=== PATIENT | male | born 1960 | race Caucasian/White ===

== ENCOUNTER 2019-03-11 10:52 | Outpatient (CLI) | payer MEDICARE, OTHER, SELFPAY ==
--- NOTE | 2019-03-11 11:08 | CT_ITS ---
WS: [id number] CT CHEST WITH INTRAVENOUS CONTRAST HISTORY: COUGH/CHRONIC LARYNGITIS/NICOTINE DEPENDENCE TECHNIQUE: Contiguous 5 mm axial imaging performed on the thorax. Coronal and sagittal reformats are submitted. All CT scans at [facility] use at least one of these dose optimization techniq ues: automated exposure control; mA and/or kV adjustment per patient size (includes targeted exams wh ere dose is matched to clinical indication); or iterative reconstruction. CONTRAST: Visipaque 320; 95 mL IV. DLP: 1058.76 mGy.cm COMPARISON: None available. Lungs and central airway: No suspicious nodules or masses. No pneumonia. Subsegmental atelectasis at the lingula. Pleura: Mild pleural thickening throughout the LEFT thorax. No nodularity or effusion. Heart and pericardium: Mildly enlarged heart. No pericardial effusion. Mediastinum and selvin: No mediastinum or hilar adenopathy. Vessels: Mild atherosclerosis aorta. Chest wall and lower neck: No soft tissue masses. Upper abdomen: Small hiatal hernia. Mild hepatic steatosis. Exophytic cyst from the upper pole the RI GHT kidney measures 8.6 cm and incompletely visualized. Osseous structures: Postoperative fusion hardware at the cervicothoracic junction. Extensive osteophy radha throughout the thoracic spine. No osteoblastic or osteolytic bone disease. CT/CT chest w con* [id number] IMPRESSION: 1. No pulmonary nodule or pneumonia. 2. Mild cardiomegaly. 3. Small hiatal hernia. 4. No adenopathy.
[2019-03-11] MEDS: iodixanol 320 mg/mL 100mL Btl IV (13:02)
== END 2019-03-11 10:53 | disposition home or self-care (01) ==
LOC: RT 10:57
PROVIDERS: Family Provider Family Medicine; PCP Family Medicine; Visit Provider Specialist
DX: J37.0 Chronic laryngitis (principal); I51.7 Cardiomegaly; R05 Cough; K21.9 Gastro-esophageal reflux disease without esophagitis; F17.210 Nicotine dependence, cigarettes, uncomplicated; K44.9 Diaphragmatic hernia without obstruction or gangrene
CPT/HCPCS: 71260; 94060; J7611

== ENCOUNTER 2019-11-14 12:04 | Outpatient (CLI) | payer MEDICARE, OTHER, SELFPAY ==
--- NOTE | 2019-11-14 12:45 | USCV_ITS ---
Perry Norman Age: 59 Gender: M : 1960 Exam Date: 11/14/2019 12:12 Ordering Phys: Sahil Roche DPM Technologist: Willie Garcia Exam Location: [facility] [place] Indication: PAD RIGHT LEFT Brachial 160.00 mmHg Brachial 143.00 mmHg Pressure (mmHg) Waveform Pressure (mmHg) Waveform 188.00 P[employer] P[employer]ER 176.00 142.00 DPA 168.00 1.18 Ankle/Brachial Index 1.10 0.80 Pre-Exercise Toe Pressure 0.91 FINDINGS See measurements listed above. Normal resting ABIs bilaterally Normal resting TBI bilaterally CONCLUSIONS No evidence of any significant arterial obstruction, based on the above findings. Dr Harriet Ruth MD [facility] (Electronically Signed) Final Date: 14 November 2019 14:57 S
== END 2019-11-14 12:05 | disposition home or self-care (01) ==
LOC: RAD 12:10
PROVIDERS: PCP Family Medicine; Visit Provider Podiatrist Foot & Ankle Surgery
DX: I73.9 Peripheral vascular disease, unspecified (principal)
CPT/HCPCS: 93922

== ENCOUNTER 2020-02-26 12:38 | Outpatient (CLI) | payer MEDICARE, OTHER, SELFPAY ==
--- NOTE | 2020-02-26 12:44 | USCV_ITS ---
Perry Norman Age: 59 Gender: M : 1960 Exam Date: 02/26/2020 13:02 Ordering Phys: Radha Sanon Technologist: Thai Cano [place] [facility] [place]ication: lower extremity edema/ pain of lt calf/ cellulitis lle PROCEDURES: Venous duplex imaging was performed in only the left lower extremity. The following venous structures were evaluated: common femoral vein, profunda vein, proximal portion of the greater saphenous vein, superficial femoral vein, and the popliteal vein. In addition, the posterior tibial and peroneal trunk were evaluated. Serial compression, augmentation maneuvers, and spectral Doppler flow evaluation were performed. FINDINGS: Normal 2-D Doppler and augmentation and compressibility throughout the lower extremity venous structures. Additional imaging through the proximal calf veins also reveals no thrombus. Limited evaluation of the greater saphenous vein is patent with no thrombus.. CONCLUSIONS No evidence of left lower extremity DVT. Conrad Mark MD (Electronically Signed) Final Date: 27 February 2020 18:01 S
== END 2020-02-26 12:39 | disposition home or self-care (01) ==
LOC: RAD 12:44
PROVIDERS: PCP Family Medicine; Visit Provider Registered Nurse
DX: R60.0 Localized edema (principal); M79.662 Pain in left lower leg; L03.116 Cellulitis of left lower limb
CPT/HCPCS: 93971

== ENCOUNTER 2020-05-25 07:35 | Observation (INO) | payer MEDICARE, OTHER, SELFPAY ==
[2020-05-25] VITALS (15 sets, daily range): BP systolic 115–192; BP diastolic 72–118; PULSE 91–148; RESP 14–22; TEMP 36.5–37.2; O2SAT 91–98; BMI 40.6
--- NOTE | 2020-05-25 07:38 | XR_ITS ---
WS: [id number] PORTABLE CHEST HISTORY: chest pain COMPARISON: Chest CT 03/11/2019 Mild pulmonary hyperexpansion. No pneumonia. Normal vasculature. No pleural effusion or pneumothorax. Cardiac size: Moderately enlarged cardiac silhouette. Mediastinum/Aorta: Mild atherosclerosis aorta. Extensive fusion hardware at the cervicothoracic junction. XR/XR chest 1V portable [id number] IMPRESSION: 1. Chronic emphysema. 2. Moderate cardiomegaly. 3. Stable appearance of the chest since the prior CT of 03/11/2019.
--- NOTE | 2020-05-25 07:38 | ECG_ITS ---
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 Measurements Intervals [place] Rate: 102 P: 64 [place]: 179 QRS: 20 QRSD: 136 T: -62 QT: 363 QTc: 473 Interpretive Statements SINUS TACHYCARDIA WITH OCCASIONAL VENTRICULAR PREMATURE COMPLEXES POSSIBLE LEFT ATRIAL ENLARGEMENT [-0.1mV P WAVE IN V1/V2] INTRAVENTRICULAR CONDUCTION DELAY [130+ ms QRS DURATION] Nonspecific T wave abnormality Compared to ECG 05/25/2020 10:28:12 Right-axis deviation no longer present Electronically Signed On 06-02-2020 12:32:20 CDT by Maye Boyd M.D. [id number]
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
[2020-05-25 08:06] LABS: Basophils # 0.1 10^3/uL (0.0-0.1); Basophils % 0.8 %; Eosinophils # 0.1 10^3/uL (0.0-0.8); Eosinophils % 0.8 %; Hematocrit 52.8 % (42.0-52.0); Lymphocytes # 5.8 10^3/uL (0.8-4.8); Lymphocytes % 44.3 %; Mean Corpuscular HGB Conc 34.1 g/dL (30.0-36.0); Mean Corpuscular Hemoglobin 34.6 pg (28.0-34.0); Mean Corpuscular Volume 101.5 fL (80-94); Mean Platelet Volume 8.4 fL (7.4-10.4); Monocytes # 0.8 10^3/uL (0.2-0.9); Monocytes % 6.4 %; Neutrophils # 6.08 10^3/uL (1.8-7.7); Neutrophils % 46.8 %; Nucleated Red Blood Cells % 0.2 %; Platelet Count 251 10^3/cmm (130-400); Red Cell Distribution Width 14.8 % (12.1-15.1)
[2020-05-25] MEDS: pantoprazole DR 40 mg Tablet PO ×2 (08:14→18:23)
[2020-05-25] MEDS: metoprolol tartrate 1 mg/1 mL SDV 5 mL 5 MG IV ×2 (08:15→09:31)
[2020-05-25] MEDS: carvedilol 25 mg Tablet PO ×2 (08:15→20:32)
[2020-05-25] MEDS: lisinopril 20 mg Tablet PO (08:15)
[2020-05-25] MEDS: lidocaine 2% viscous 15 ML, aluminum-mag hydrox-simethicon 30 ML, sucralfate oral liq 1 GM PO (08:15)
[2020-05-25 08:20] LABS: Troponin(5th) Baseline 35 ng/L (0-15)
[2020-05-25 08:27] LABS: Alanine Aminotransferase 42 U/L (0-41); Albumin Level 4.2 g/dL (3.5-5.2); Alkaline Phosphatase 122 IU/L (40-130); Anion Gap 19.6 (5-19); Aspartate Amino Transferase 44 U/L (0-40); Blood Urea Nitrogen 20 mg/dL (6-20); Calcium 9.2 mg/dL (8.5-10.5); Carbon Dioxide 24 mmol/L (22-29); Chloride 98 mmol/L (98-107); Globulin 2.6 g/dL (1.3-4.6); Glomerular Filtration Rate 68.5 mL/min (90-130); Glucose 175 mg/dL (65-115); NT Pro B Type Natriuretic Pept 224 pg/mL (0-125); Osmolality Calculated 293 mOsm/kg (285-295); Potassium 3.6 mmol/L (3.5-5.1); Sodium 138 mmol/L (136-145); Total Bilirubin 0.3 mg/dL (0.15-1.2); Total Protein 6.8 g/dL (6.6-8.7)
[2020-05-25 08:39] LABS: Ammonia 19 umol/L (16-60)
[2020-05-25 08:54] LABS: Slide Review Slide Review Perform
--- NOTE | 2020-05-25 09:28 | CT_ITS ---
WS: [id number] CTA CHEST WITH CT ABDOMEN AND PELVIS. HISTORY: Chest pain. TECHNIQUE: CT angiogram is performed through the chest. Additional imaging is performed through the a bdomen and pelvis with IV contrast. Sagittal and coronal reformats have been submitted. MIP imaging also reviewed. All CT scans at [facility] use at least one of these dose optimization tech niques: automated exposure control; mA and/or kV adjustment per patient size (includes targeted exams where dose is matched to clinical indication); or iterative reconstruction. Contrast: Visipaque 95 cc IV. Omnipaque 350; 95 cc. DLP: 4388.37 mGy.cm COMPARISON: 03/11/2019 Chest CTA: Limited opacification of the pulmonary arteries. Centrally there is no PE but there is sig nificant artifact through the chest. Pulmonary artery size is equal to the aorta. Beyond the lobar br anches the opacification is limited. Chronic emphysema with mild interstitial thickening. No pneumoni a. No nodule or mass. No pneumothorax or effusion. Mild enlargement of the LEFT heart chambers. No pe ricardial effusion. Small paratracheal and mediastinal lymph nodes. Thoracic aorta is normal size wit h mild atherosclerosis. No dissection or aneurysm. Mildly enlarged thyroid extends substernal. Small hiatal hernia. Abdomen CT: Diffuse moderate hepatomegaly and severe hepatic steatosis. No mass or bile duct dilatati on. Gallbladder is negative. Negative pancreas and spleen. No adrenal mass. Atrophy and diffuse corti yvette thinning of the RIGHT kidney. There are numerous masses associated with the RIGHT kidney. Some of these are cysts. There is a solid mass exophytic from the superior pole measuring 2.5 x 2.1 cm which has been recently described and suspicious for complex cyst versus renal cell neoplasm. There is an additional smaller mass. Maximum diameter 1.5 cm from the mid lateral RIGHT kidney which could be an additional renal cell carcinoma. LEFT kidney demonstrates a large cyst from the upper pole measuring 8.0 x 8.1 cm. There are numerous additional smaller cysts and these are complex but too small to characterize. Normal aorta with mild atherosclerotic plaque. No adenopathy or ascites. No GI tract obstruction. The re are a few diverticula in the descending and sigmoid colon without inflammation. No hernia. Pelvic CT: Normal urinary bladder. No free fluid in the pelvis. Extensive degenerative changes throug hout the thoracic and lumbar spines. Disc fusions at L3-4, L4-5 and L5-S1 with laminectomy defects po steriorly. CT/CT angio chest w abd pel w con IMPRESSION: 1. Limited opacification of the pulmonary artery but no central pulmonary embo lism. 2. No pneumonia. 3. Moderate hepatomegaly with severe hepatic steatosis. 4. Bilateral renal masses. Solid mass upper pole RIGHT kidney suspicious for r enal cell neoplasm is similar to 07/01/2018. There are additional indeterminate but suspicious masses within each kidney. These could be complex cysts or addit ional small renal cell neoplasms. Recommend continued surveillance to exclude d eveloping renal cell neoplasms. 5. No acute inflammatory changes within the abdomen or pelvis. 6. Atherosclerosis aorta with no dissection or aneurysm.
[2020-05-25] MEDS: nitroglycerin 1 gm/inch oint Pkt 1 INCH TOPICAL (09:31)
--- NOTE | 2020-05-25 09:38 | ECG_ITS ---
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 Measurements Intervals [place] Rate: 108 P: 77 [place]: 182 QRS: 112 QRSD: 133 T: 8 QT: 407 QTc: 547 Interpretive Statements SINUS TACHYCARDIA WITH FREQUENT VENTRICULAR PREMATURE COMPLEXES RIGHT AXIS DEVIATION [QRS AXIS > 100] INTRAVENTRICULAR CONDUCTION DELAY [130+ ms QRS DURATION] Compared to ECG 05/25/2020 07:50:50 Ventricular premature complex(es) now present Right-axis deviation now present Electronically Signed On 05-25-2020 20:14:05 CDT by Daniel Null M.D. [id number]
[2020-05-25] MEDS: iodixanol 320 mg/mL 100mL Btl IV (10:18)
[2020-05-25] MEDS: iohexol 350 mg/mL 100 mL Btl IV (10:19)
[2020-05-25 11:37] LABS: Troponin 5 2HR 31.27 ng/L (0-15)
[2020-05-25 11:39] LABS: Troponin 5 2HR Delta -3.73 ABS# (0-10)
[2020-05-25] MEDS: aspirin 81 mg Chew Tablet 324 MG PO (11:53)
--- NOTE | 2020-05-25 11:59 | USCV_ITS ---
Perry Norman Age: 59 Gender: M : 1960 Exam Date: 05/25/2020 12:11 Ordering Phys: George Ying MD Technologist: Gemma Morejon [place] [facility] [place]: CHEST PAIN BP: 141 / 94 HR: 105 Rhythm: Sinus Technical Quality: Adequate MEASUREMENTS (Male / Female) Normal Values 2D ECHO LV Diastolic Diameter PLAX 4.2 cm 4.2 - 5.9 / 3.9 - 5.3 cm LV Systolic Diameter PLAX 3.1 cm LV Chamber Size 3.3 cm IVS Diastolic Thickness 1.9 cm 0.6 - 1.0 / 0.6 - 0.9 cm IVS Systolic Thickness 2.2 cm LVPW Diastolic Thickness 1.7 cm 0.6 - 1.0 / 0.6 - 0.9 cm LVPW Systolic Thickness 1.7 cm RV Chamber Size 2.6 cm LVOT Diameter 2.1 cm LV Ejection Fraction 2D Teich 50.1 % LV Ejection Fraction MOD 2C 67.2 % LV Ejection Fraction 2C AL 68.0 % LA Diameter 4.5 cm LA Width 2.7 cm LA Height 4.5 cm RA Width 3.7 cm RA Height 3.9 cm M-MODE LV Diastolic Diameter MM 5.4 cm 4.2 - 5.9 / 3.9 - 5.3 cm LV Systolic Diameter MM 3.2 cm LV Ejection Fraction MM Teich 71.2 % IVS Diastolic Thickness MM 1.4 cm 0.6 - 1.0 / 0.6 - 0.9 cm IVS Systolic Thickness MM 1.6 cm LVPW Diastolic Thickness MM 0.7 cm 0.6 - 1.0 / 0.6 - 0.9 cm LVPW Systolic Thickness MM 2.0 cm RV Diastolic Diameter MM 1.8 cm Aortic Annulus Diameter 3.5 cm LA Ao Ratio MM 1.6 MV E Point Septal Separation 0.2 cm DOPPLER AV Peak Velocity 264.0 cm/s LVOT Peak Velocity 86.7 cm/s AV Area Cont Eq vti 1.3 cm squared AV Area Cont Eq pk 1.1 cm squared MV Area PHT 6.3 cm squared Mitral E to A Ratio 2.1 MV E' Velocity 67.5 cm/s Mitral E to MV E' Ratio 18.0 Mitral E to LV E' Lateral Ratio 21.2 Mitral E to LV E' Septal Ratio 15.6 TR Peak Velocity 165.9 cm/s TR Peak Gradient 11.0 mmHg TR Mean Velocity 145.6 cm/s TR Mean Gradient 9.4 mmHg TR Velocity Time Integral 49.3 cm TV Peak E Velocity 56.0 cm/s Right Atrial Pressure 5.0 mmHg Pulmonary Artery Systolic Pressu 16.0 mmHg PV Peak Velocity 75.0 cm/s FINDINGS Left Ventricle Normal LV size ejection fraction of 65%. Abnormal septal motion consistent with conduction abnormality. Moderate left ventricular hypertrophy. Grade II/IV diastolic dysfunction, moderately elevated filling pressures. Right Ventricle Mildly increased right ventricular size. Normal right ventricular systolic function. Right Atrium Mildly increased right atrial size. Left Atrium Prominent Coumadin ridge Mitral Valve Mild mitral annular calcification. Aortic Valve Mild aortic valve regurgitation. Moderate aortic valve stenosis. Peak velocity of 2.64 m/s with a peak gradient of 28 and a mean gradient of 13 mmHg. Aortic valve area was calculated to be 1.3 cm squared Tricuspid Valve No gross abnormalities noted Pulmonic Valve Pulmonic valve not well visualized. Pericardium Normal pericardium without effusion. Aorta Normal ascending aorta dimension. CONCLUSIONS Normal LV size ejection fraction of 65%. Abnormal septal motion consistent with conduction abnormality. Moderate left ventricular hypertrophy. Type II diastolic dysfunction. Moderate aortic valve stenosis. Peak velocity of 2.64 m/s with a peak gradient of 28 and a mean gradient of 13 mmHg. Aortic valve area was calculated to be 1.3 cm squared. Mild aortic valve regurgitation. Mild mitral annular calcification. Mildly dilated right atrium and right ventricle with normal RV ejection fraction There is no pericardial effusion. There are no intracardiac masses. No previous study is available for comparison. Dr Harriet Ruth MD [facility] (Electronically Signed) Final Date: 25 May 2020 18:31 S
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
[2020-05-25] MEDS: morphine 4 mg/mL SDV 1 mL 2 MG IVP (12:13)
[2020-05-25 12:37] LABS: Amphetamines Screen Urine Positive (Negative); Barbiturates Screen Urine Negative (Negative); Benzodiazepines Screen Urine Negative (Negative); Cocaine Screen Urine Negative (Negative); Opiate Screen Urine Negative (Negative); PCP Screen Urine Negative (Negative); THC Screen Urine Negative (Negative)
[2020-05-25 12:38] LABS: Hepatitis A Antibody IgM Non-Reactive (Nonreactive); Hepatitis B Core IgM Non-Reactive (Nonreactive); Hepatitis B Surface Antigen Non-Reactive (Nonreactive); Hepatitis C Virus Antibody Non-Reactive (Nonreactive)
--- NOTE | 2020-05-25 13:38 | ECG_ITS ---
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 Measurements Intervals [place] Rate: 135 P: 149 VA: 142 QRS: -3 QRSD: 132 T: 23 QT: 308 QTc: 462 Interpretive Statements SINUS TACHYCARDIA INTRAVENTRICULAR CONDUCTION DELAY [130+ ms QRS DURATION] Compared to ECG 07/01/2018 04:42:19 Sinus rhythm no longer present Electronically Signed On 05-25-2020 20:14:21 CDT by Daniel Null M.D. [id number]
[2020-05-25 13:43] LABS: Magnesium 1.5 mg/dL (1.7-2.3); Thyroid Stimulating Hormone 2.75 uIU/mL (0.27-4.20)
[2020-05-25 14:03] LABS: Troponin 5 6HR 34.86 ng/L (0-15)
[2020-05-25 14:04] LABS: Troponin 5 6HR Delta -0.14 ng/L (0-12)
--- NOTE | 2020-05-25 14:20 | ECG_ITS ---
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 Interpretive Statements NAME OF STUDY: LEXISCAN SESTAMIBI STRESS TEST INDICATION: Chest Pain PROCEDURE: At the baseline, the blood pressure was 171/99 mmHg, oxygen saturation 93% with a heart rate of 92 bpm. The electrocardiogram showed sinus rhythm with artifact ST depression T wave inversion noted in inferolateral leads. The Lexiscan was infused over a period of 20 seconds. A total of 0.4 milligrams of Lexiscan was infused. The stress phase was continued for a total of 5 minutes. Heart rate at the end of the stress phase was 103 bpm, oxygen saturation 92% with a blood pressure of 189/96 mmHg. The EKG at the peak infusion revealed sinus rhythm with ST depression and T wave inversion in inferolateral leads. Isolated PVCs noted during exercise and in recovery. Study was terminated due to protocol completion. Sestamibi was injected 20 seconds after the Lexiscan infusion. Blood pressure at the end of the recovery phase was 166/85 mmHg, oxygen saturation 92% with a heart rate of 96 beats per minute. CONCLUSION: 1. Non diagnostic EKG with Lexiscan infusion given baseline ST-T wave changes. 2. No LexiScan induced chest pain or cardiac arrhythmia. 3. Baseline hypertension with normal blood pressure and heart rate response. 4. Sestamibi/sestamibi perfusion scan pending; see separate report. Electronically Signed On 05-26-2020 12:54:18 CDT by Maye Boyd M.D. [id number]
[2020-05-25] MEDS: sodium chloride 0.9% 1,000 ML 75 ML IV (15:44)
[2020-05-25] MEDS: magnesium sulfate premix 2 GM/50 ML PIGGYBACK IV (15:45)
[2020-05-25] MEDS: baclofen 10 mg Tablet 20 MG PO ×2 (15:54→20:32)
[2020-05-25] MEDS: BuSPIRONE 10 mg Tablet PO ×2 (15:54→20:32)
[2020-05-25] MEDS: enoxaparin 40 mg/0.4 mL Syringe SUBCUT (15:54)
[2020-05-25] MEDS: gabapentin 300 mg Capsule 600 MG PO ×2 (18:23→20:32)
[2020-05-25] MEDS: oxyCODONE-APAP 10-325 mg Tablet 1 TAB PO (19:31)
[2020-05-25] MEDS: pramipexole 0.25 mg Tablet 0.5 MG PO (20:31)
[2020-05-26] VITALS (11 sets, daily range): BP systolic 111–166; BP diastolic 63–94; PULSE 80–99; RESP 17–18; TEMP 36.7–37; O2SAT 91–97
[2020-05-26] MEDS: sodium chloride 0.9% 1,000 ML 75 ML IV (05:13)
[2020-05-26 06:18] LABS: Basophils # 0.1 10^3/uL (0.0-0.1); Basophils % 0.7 %; Eosinophils # 0.1 10^3/uL (0.0-0.8); Eosinophils % 1.5 %; Hematocrit 46.5 % (42.0-52.0); Hemoglobin 15.7 g/dL (11.7-16.6); Lymphocytes # 2.4 10^3/uL (0.8-4.8); Lymphocytes % 27.4 %; Mean Corpuscular HGB Conc 33.8 g/dL (30.0-36.0); Mean Corpuscular Hemoglobin 34.4 pg (28.0-34.0); Mean Platelet Volume 8.8 fL (7.4-10.4); Monocytes # 0.9 10^3/uL (0.2-0.9); Monocytes % 9.5 %; Neutrophils # 5.38 10^3/uL (1.8-7.7); Neutrophils % 60.3 %; Nucleated Red Blood Cells % 0 %; Platelet Count 210 10^3/cmm (130-400); Red Blood Count 4.56 10^6/uL (4.1-5.3); Red Cell Distribution Width 14.7 % (12.1-15.1); White Blood Count 8.9 10^3/uL (4.0-10.0)
[2020-05-26 06:37] LABS: Alanine Aminotransferase 32 U/L (0-41); Albumin Level 3.6 g/dL (3.5-5.2); Alkaline Phosphatase 100 IU/L (40-130); Anion Gap 15.1 (5-19); Aspartate Amino Transferase 32 U/L (0-40); Blood Urea Nitrogen 20 mg/dL (6-20); Calcium 8.7 mg/dL (8.5-10.5); Carbon Dioxide 28 mmol/L (22-29); Chloride 96 mmol/L (98-107); Globulin 2.6 g/dL (1.3-4.6); Glomerular Filtration Rate 76.5 mL/min (90-130); Glucose 96 mg/dL (65-115); Osmolality Calculated 282 mOsm/kg (285-295); Potassium 4.1 mmol/L (3.5-5.1); Sodium 135 mmol/L (136-145); Total Bilirubin 0.6 mg/dL (0.15-1.2); Total Protein 6.2 g/dL (6.6-8.7)
--- NOTE | 2020-05-26 06:45 | NMCV_ITS ---
NM triny perf SPECT r/s* [id number] Perry Norman Age: 59 Gender: M : 1960 Exam Date: 05/26/2020 07:37 Ordering Phys: George Ying MD Technologist: SERENA Hampton Exam Location: [facility] Indications: CHEST PAIN STRESS TEST Please see separate stress test report in [employer]any for full findings IMAGE PROTOCOL Rest/Stress 1 Lexiscan Day Radiopharmaceutical Dose (mCi) Administration Site Administered by Rest: Tc-99m 10.9 IV La Nena Chiu, CUT PRESS OPERATOR Sestamibi Stress:Tc-99m 32.6 IV La Nena Chiu, CUT PRESS OPERATOR Sestamibi Rest: 26-May-2020 60 Discovery 630 Stress: 26-May-2020 30 Discovery 630 0.4mg Lexiscan. Supine position only as patient was unable to lay prone. SPECT RESULTS Technical Quality: Excellent Raw Data Analysis: Normal Image Corrections: No attenuation or motion correction applied Summed Stress Score: 1 Summed Rest Score: 1 Summed Difference Score: 1 PERFUSION FINDINGS Small size perfusion abnormality of mild severity of mid inferior wall on rest images with improved tracer uptake on stress images. This is suggestive of attenuation artifact. FUNCTIONAL RESULTS (calculated via Gated SPECT) Stress Image LV EF (%): 66 Stress EDV (mL):132 TID: 0.91 Stress ESV (mL):45 FUNCTIONAL FINDINGS: The left ventricle is normal in size. Transient Ischemia Dilatation of 0.91. There is normal left ventricular systolic function. The left ventricular ejection fraction is normal with a value of 66%. There is normal left ventricular wall thickening with no regional wall motion abnormality. IMPRESSIONS 1. Myocardial perfusion imaging is normal. 2. Overall left ventricular systolic function is normal without regional wall motion abnormalities. 3. The left ventricular ejection fraction is normal with a value of 66%. 4. No significant coronary ischemia based on the study. Maye Boyd MD (Electronically Signed) Final Date: 26 May 2020 12:59 S
[2020-05-26] MEDS: oxyCODONE-APAP 10-325 mg Tablet 1 TAB PO (08:23)
[2020-05-26] MEDS: regadenoson 0.4 Mg/5 ml Syringe IVP (08:25)
[2020-05-26] MEDS: carvedilol 25 mg Tablet PO (09:34)
[2020-05-26] MEDS: aspirin 325 mg EC Tablet PO (09:34)
[2020-05-26] MEDS: spironolactone 25 mg Tablet 50 MG PO (09:34)
[2020-05-26] MEDS: fluoxetine 20 mg Capsule 60 MG PO (09:34)
[2020-05-26] MEDS: baclofen 10 mg Tablet 20 MG PO (09:34)
[2020-05-26] MEDS: gabapentin 300 mg Capsule 600 MG PO ×2 (09:35→12:23)
[2020-05-26] MEDS: atorvastatin 40 mg Tablet 20 MG PO (09:35)
[2020-05-26] MEDS: losartan 50 mg Tablet 100 MG PO (09:35)
[2020-05-26] MEDS: pantoprazole DR 40 mg Tablet PO (09:35)
[2020-05-26] MEDS: BuSPIRONE 10 mg Tablet PO (09:35)
[2020-05-26] MEDS: venlafaxine ER (24HR) 150 mg Capsule PO (09:36)
[2020-05-26] MEDS: venlafaxine ER (24HR) 75 mg Capsule PO (09:36)
[2020-05-26] MEDS: acetaminophen 325 mg Tablet 650 MG PO (11:22)
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
== END 2020-05-26 15:06 | disposition home or self-care (01) ==
LOC: ER 13:28 → MEDSURG 05-26 07:41
PROVIDERS: Physician Assistant; Admitting Provider Internal Medicine; Emergency Provider Family Medicine; PCP Family Medicine; Visit Provider Internal Medicine
DX: R41.82 Altered mental status, unspecified (principal); R07.89 Other chest pain; R00.0 Tachycardia, unspecified; R74.01 Elevation of levels of liver transaminase levels; F10.10 Alcohol abuse, uncomplicated; R73.9 Hyperglycemia, unspecified; N28.89 Other specified disorders of kidney and ureter; I13.0 Hypertensive heart and chronic kidney disease with heart failure and stage 1 through stage 4 chronic kidney disease, or unspecified chronic kidney disease; N18.9 Chronic kidney disease, unspecified; I50.9 Heart failure, unspecified; J44.9 Chronic obstructive pulmonary disease, unspecified; K21.9 Gastro-esophageal reflux disease without esophagitis; G47.30 Sleep apnea, unspecified; E66.9 Obesity, unspecified; Z68.41 Body mass index [BMI] 40.0-44.9, adult; F17.210 Nicotine dependence, cigarettes, uncomplicated
CPT/HCPCS: 36415; 71045; 71275; 74177; 78452; 80053; 80074; 80306; 82140; 83735; 83880; 84443; 84484; 85025; 85610; 93005; 93017; 93306; 96372; 96374; 96375; 99285; A9500; G0378; J1650; J2270; J2785; J3475; J3490; J7030; Q9967

== ENCOUNTER 2020-07-27 09:54 | Outpatient (CLI) | payer MEDICARE, OTHER, SELFPAY | END 2020-07-27 09:55 | disposition home or self-care (01) | LOC: WOUND 09:56 | PROVIDERS: PCP Family Medicine; Visit Provider Nurse Practitioner Family | DX: L98.492 Non-pressure chronic ulcer of skin of other sites with fat layer exposed (principal); L97.512 Non-pressure chronic ulcer of other part of right foot with fat layer exposed | CPT/HCPCS: 11042; G0463 ==

== ENCOUNTER 2020-07-30 08:58 | Outpatient (CLI) | payer MEDICARE, OTHER, SELFPAY ==
--- NOTE | 2020-07-30 09:12 | XR_ITS ---
WS: [id number] Exam: XR foot RT min 3V* [id number] Date/Time of Exam: 07/30/2020 9:17 AM Reason For Exam: NON PRESSURE WOUND R FOOT No fracture or dislocation noted. No sign of bone destruction. Degenerative changes in the midfoot casa ints. No soft tissue foreign bodies are seen. There may be soft tissue swelling along the MP joint of the fifth digit. XR/XR foot RT min 3V* [id number] IMPRESSION: 1. No fracture or bone destruction identified. Minimal degenerative changes. 2. There may be soft tissue swelling along the MP joint of the fifth digit.
== END 2020-07-30 08:59 | disposition home or self-care (01) ==
PROVIDERS: PCP Family Medicine; Visit Provider Nurse Practitioner Family
DX: L97.512 Non-pressure chronic ulcer of other part of right foot with fat layer exposed (principal)
CPT/HCPCS: 73630

== ENCOUNTER 2020-08-10 09:50 | Outpatient (CLI) | payer MEDICARE, OTHER, SELFPAY | END 2020-08-10 09:51 | disposition home or self-care (01) | LOC: WOUND 09:51 | PROVIDERS: PCP Family Medicine; Visit Provider Nurse Practitioner Family | DX: L98.492 Non-pressure chronic ulcer of skin of other sites with fat layer exposed (principal); L97.512 Non-pressure chronic ulcer of other part of right foot with fat layer exposed | CPT/HCPCS: 11042 ==

== ENCOUNTER 2020-08-24 09:12 | Outpatient (CLI) | payer MEDICARE, OTHER, SELFPAY | END 2020-08-24 09:13 | disposition home or self-care (01) | LOC: WOUND 09:13 | PROVIDERS: PCP Family Medicine; Visit Provider Thoracic Surgery (Cardiothoracic Vascular Surgery) | DX: I96 Gangrene, not elsewhere classified (principal); L89.893 Pressure ulcer of other site, stage 3; L97.512 Non-pressure chronic ulcer of other part of right foot with fat layer exposed | CPT/HCPCS: 11042; 97597 ==

== ENCOUNTER 2020-08-27 07:34 | Outpatient (CLI) | payer MEDICARE, OTHER, SELFPAY ==
--- NOTE | 2020-08-27 07:47 | USCV_ITS ---
Perry Norman Age: 59 Gender: M : 1960 Exam Date: 08/27/2020 08:00 Ordering Phys: Dia Whitman Technologist: Gemma Morejon Exam Location: [facility] [place] Indication: HISTORY: Non healing ulcer on rt foot PROCEDURES: The venous duplex Doppler examination of both lower extremities was performed in the standard fashion. The following venous structures were evaluated: common femoral vein, the greater saphenous vein, superficial femoral vein, and the popliteal vein ,and ptv and ssv FINDINGS: Small amount of reflux seen Rt GSV prox Lt GSV below knee has reflux. The veins were found to be easily compressible with spontaneous blood flow. Non pulsatile flow pattern. CONCLUSIONS 1.No evidence of DVT in the above-mentioned identifiable veins. 2. Significant venous reflux of greater than 500 ms(728 msec) was noted at the proximal greater saphenous vein on the right side. The venous segment was 0.59 cm in diameter and at a depth of 1.78 cm. 3. On the left side, significant venous reflux of greater than 500 ms (3190 msec)was noted in the below-knee segment of the greater saphenous vein. The venous segment was 0.41 cm in diameter and at a depth of 1.35 cm 4. The venous dimensions and the depth from the surface are as mentioned above Dr Harriet Ruth MD [facility] (Electronically Signed) Final Date: 28 August 2020 08:47 S
== END 2020-08-27 07:35 | disposition home or self-care (01) ==
PROVIDERS: PCP Family Medicine; Visit Provider Nurse Practitioner Family
DX: L97.519 Non-pressure chronic ulcer of other part of right foot with unspecified severity (principal)
CPT/HCPCS: 93970

== ENCOUNTER 2020-08-28 08:14 | Outpatient (CLI) | payer MEDICARE, OTHER, SELFPAY ==
--- NOTE | 2020-08-28 08:23 | USCV_ITS ---
Perry Norman Age: 59 Gender: M : 1960 Exam Date: 08/28/2020 08:13 Ordering Phys: Dia Whitman Technologist: Yoselin Fischer Exam Location: [facility] [place] Indication: RT TOE ULCER RIGHT LEFT Brachial 124.00 mmHg Brachial 119.00 mmHg Pressure (mmHg) Waveform Pressure (mmHg) Waveform 146.00 High Thigh 137.00 146.00 Below Knee 137.00 155.00 RADIO HOST N/A 135.00 DPA 138.00 1.09 Ankle/Brachial Index 1.11 119.00 Pre-Exercise Toe Pressure 142.00 0.96 Pre-Exercise Toe/Brachial Index 1.15 FINDINGS Normal resting ABIs bilaterally Normal resting TBIs bilateral Normal segmental pressures PVR waveforms showing some blunting of the dicrotic notch CONCLUSIONS No evidence of any significant arterial obstruction, based on the above findings. Dr Harriet Ruth MD [facility] (Electronically Signed) Final Date: 28 August 2020 11:25 S
== END 2020-08-28 08:15 | disposition home or self-care (01) ==
LOC: US 08:17
PROVIDERS: PCP Family Medicine; Visit Provider Nurse Practitioner Family
DX: L97.519 Non-pressure chronic ulcer of other part of right foot with unspecified severity (principal)
CPT/HCPCS: 93923

== ENCOUNTER 2020-08-31 08:46 | Outpatient (CLI) | payer MEDICARE, OTHER, SELFPAY | END 2020-08-31 08:47 | disposition home or self-care (01) | LOC: WOUND 08:47 | PROVIDERS: PCP Family Medicine; Visit Provider Nurse Practitioner Family | DX: L89.893 Pressure ulcer of other site, stage 3 (principal); L97.512 Non-pressure chronic ulcer of other part of right foot with fat layer exposed | CPT/HCPCS: 11042 ==

== ENCOUNTER 2020-09-07 08:45 | Outpatient (CLI) | payer MEDICARE, OTHER, SELFPAY | END 2020-09-07 08:46 | disposition home or self-care (01) | LOC: WOUND 08:46 | PROVIDERS: PCP Family Medicine; Visit Provider Nurse Practitioner Family | DX: I96 Gangrene, not elsewhere classified (principal); L89.893 Pressure ulcer of other site, stage 3; L97.512 Non-pressure chronic ulcer of other part of right foot with fat layer exposed | CPT/HCPCS: 11042 ==

== ENCOUNTER → 2020-09-11 14:00 | Outpatient (BNVA) | payer MEDICARE, OTHER, SELFPAY | PROVIDERS: PCP Family Medicine; Visit Provider Surgery | DX: Z12.11 Encounter for screening for malignant neoplasm of colon (principal); Z20.822 Contact with and (suspected) exposure to COVID-19 | CPT/HCPCS: 87635 ==

== ENCOUNTER 2020-09-14 09:21 | Outpatient (CLI) | payer MEDICARE, OTHER, SELFPAY | END 2020-09-14 09:22 | disposition home or self-care (01) | LOC: WOUND 09:22 | PROVIDERS: PCP Family Medicine; Visit Provider Nurse Practitioner Family | DX: L89.893 Pressure ulcer of other site, stage 3 (principal); L97.812 Non-pressure chronic ulcer of other part of right lower leg with fat layer exposed | CPT/HCPCS: 11042 ==

== ENCOUNTER 2020-09-17 08:21 | Day surgery (SDC) | payer MEDICARE, OTHER, SELFPAY ==
[2020-09-15 12:23] VITALS: BMI 39.3
--- NOTE | 2020-09-17 08:43 | ANES.PREANE2 ---
Pre-Anesthetic Assessment Pre-Anesthetic Assessment: Height/Weight: Height 1.83 m Weight 131.542 kg Preop Diagnosis: Blood in stool and change in bowel habits Proposed Procedure: Operation Date: 09/17/20 09:30 Proposed Procedures p EGD/colon 76146 12117 R10.9 R19.4(Not Applicable) - Todd Davis MD s Colonoscopy(Not Applicable) - Todd Davis MD Familial anesthetic complications: None Was Beta Trevor taken within 24 hours: Yes Was Clonidine taken within 24 hours: N/A Last intake: > 8 hrs Social: Social History: Alcohol and Tobacco Comment: moonshine 1 pint/day Exam: Pre-Anes Outpt Exam: alert, oriented x 3, clear to auscultation bilaterally and regular rate & rhythm Airway: MP: 3 Dentition: Other (no teeth) Additional comments: hernández Pulmonary: Pulmonary: COPD and Sleep apnea CV/HEM: CV/HEM: HTN and PVD Comments: Aortic stenosis, hx of Cath 2020 IMPRESSIONS 1. Myocardial perfusion imaging is normal. 2. Overall left ventricular systolic function is normal without regional wall motion abnormalities. 3. The left ventricular ejection fraction is normal with a value of 66%. 4. No significant coronary ischemia based on the study. Echo 2020 CONCLUSIONS Normal LV size ejection fraction of 65%. Abnormal septal motion consistent with conduction abnormality. Moderate left ventricular hypertrophy. Type II diastolic dysfunction. Moderate aortic valve stenosis. Peak velocity of 2.64 m/s with a peak gradient of 28 and a mean gradient of 13 mmHg. Aortic valve area was calculated to be 1.3 cm squared. Mild aortic valve regurgitation. Mild mitral annular calcification. Mildly dilated right atrium and right ventricle with normal RV ejection fraction There is no pericardial effusion. There are no intracardiac masses. No previous study is available for comparison. : : Chronic renal Insufficiency Anesthetic Plan: ASA status: 3 Anesthesia: MAC Risk of > 500 ml blood loss (7ml/kg in children): No PFSH Anesthesia PFSH: Medical History Alcoholism Aortic stenosis BPH loc w urin obs/LUTS CHF (congestive heart failure) Chronic pain CKD (chronic kidney disease) COPD (chronic obstructive pulmonary disease) CRI (chronic renal insufficiency) DDD (degenerative disc disease) Depression with anxiety DJD (degenerative joint disease) GERD (gastroesophageal reflux disease) HTN (hypertension) LVH (left ventricular hypertrophy) Obesity Sleep apnea Surgical History History of aortic aneurysm repair History of coronary angioplasty with insertion of stent Family History Other CAD (coronary artery disease) Social History Smoking and tobacco status: current every day smoker cigarettes Packs smoked per day: 3 Alcohol intake: current Alcohol intake frequency: 3 or more drinks per day Marital status: Current occupational status: disabled History of recent travel: No Data Anesthesia Cardiac Studies: No Data to Display
[2020-09-17 09:09] VITALS: BP 108/48; PULSE 75; RESP 8; TEMP 36.4; O2SAT 97
--- NOTE | 2020-09-17 09:20 | W.PM.OPSFHP ---
Same Day Surgery H&P Indication for Procedure/HPI DATE OF PROCEDURE: September 17, 2020 CHIEF COMPLAINT/INDICATIONFOR SURGICAL PROCEDURE: Blood in stool PREOP DIAGNOSIS: Blood in stool and change in bowel habits PLANNED PROCEDRUE: Operation Date: 09/17/20 09:30 Proposed Procedures p EGD/colon [id number] R10.9 R19.4(Not Applicable) - Todd Davis MD s Colonoscopy(Not Applicable) - Todd Davis MD This is a pleasant 59 years old gentleman comes with broad spectrum of symptomatology including but not limited regurgitation of food in addition to blood in stool with alternating bowel movements between loose stools and constipation. Patient had previous colonoscopy few years ago and he was told that he had colon polyps and he is intentionally losing weight. Patient had noticed recently that he has been having diarrheal stools alternating with constipation. Without obvious explanation Patient is referred to me for further evaluation for consideration for endoscopies Interim history 09/17/2020 Patient comes today for diagnostic EGD and colonoscopy ROS Systems have been reviewed negative except as per the above or per problem list Medications/Allergies* Home Medications Medication Instructions Recorded Confirmed Type albuterol sulfate 90 mcg/actuation 2 puff INHALATION Q6H PRN 03/05/19 09/17/20 History aerosol inhaler azelastine 137 mcg (0.1 %) nasal 1 spray INTRANASAL BID 03/05/19 09/17/20 History spray aerosol baclofen 20 mg tablet 20 mg PO TID 03/05/19 09/17/20 History bisacodyl 5 mg tablet,delayed 5 mg PO DAILY PRN 03/05/19 09/17/20 History release carvedilol 25 mg tablet 25 mg PO BID 03/05/19 09/17/20 History gabapentin 600 mg tablet 600 mg PO QID 03/05/19 09/17/20 History lovastatin 40 mg tablet 40 mg PO DAILY 03/05/19 09/17/20 History omeprazole 40 mg capsule,delayed 40 mg PO BID 03/05/19 09/17/20 History release oxycodone-acetaminophen 10 mg-325 1 tab PO Q8H PRN 03/05/19 09/17/20 History mg tablet pramipexole 0.25 mg tablet 0.5 mg PO BEDTIME 03/05/19 09/17/20 History spironolactone 50 mg tablet 50 mg PO DAILY 03/05/19 09/17/20 History ergocalciferol (vitamin D2) 1,250 mcg PO Q7D 05/25/20 09/17/20 History fluoxetine 60 mg PO DAILY 05/25/20 09/17/20 History losartan 100 mg PO DAILY 05/25/20 09/17/20 History buspirone 10 mg tablet 10 mg PO TID 06/12/20 09/17/20 History clotrimazole 1 % topical cream 1 applic TOPICAL PRN PRN g 06/12/20 09/17/20 History hydralazine 50 mg tablet 50 mg PO BID tab 06/12/20 09/17/20 History silver sulfadiazine 1 % topical 1 applic TOPICAL PRN PRN g 06/12/20 09/17/20 History cream tadalafil 20 mg tablet 20 mg PO PRN PRN tab 06/12/20 09/17/20 History testosterone cypionate 100 mg/mL 100 mg IM .every 21 days ml 06/12/20 09/17/20 History intramuscular oil Allergies/Adverse Reactions Allergy/AdvReac Type Severity Reaction Status Date / Time adhesive tape Allergy Mild ALGY-Rash Verified 09/17/20 09:21 ciprofloxacin Allergy Unknown Unknown Verified 09/17/20 09:21 Forced Air Heat Allergy Mild Difficulty Uncoded 09/17/20 09:21 breathing; dries up sinuses. Pertinent History/Comorbid Conditions* Medical History (Updated 07/20/20 @ 20:26 by Sahil Roche DPM) Alcoholism Aortic stenosis BPH loc w urin obs/LUTS CHF (congestive heart failure) Chronic pain CKD (chronic kidney disease) COPD (chronic obstructive pulmonary disease) CRI (chronic renal insufficiency) DDD (degenerative disc disease) Depression with anxiety DJD (degenerative joint disease) GERD (gastroesophageal reflux disease) HTN (hypertension) LVH (left ventricular hypertrophy) Obesity Sleep apnea Surgical History (Updated 05/25/20 @ 12:23 by George Ying MD) History of aortic aneurysm repair History of coronary angioplasty with insertion of stent Family History (Updated 05/25/20 @ 12:23 by George Ying MD) CAD (coronary artery disease) Social History Smoking and tobacco status: current every day smoker cigarettes Packs smoked per day: 3 Alcohol intake: current Alcohol intake frequency: 3 or more drinks per day Marital status: Current occupational status: disabled History of recent travel: No Pertinent Exam Findings alert, oriented x 3, clear to auscultation bilaterally, regular rate & rhythm and procedure specific exam findings (Abdominal examination nontender nondistended soft obese) Recommendations Surgery/Procedure today (EGD and colonoscopy) Other Plans: Plan of care; After thorough history and physical examination and reviewing the chart, plan to perform a diagnostic esophagogastroduodenoscopy and diagnostic colonoscopy with possible biopsy and possible polypectomy. I discussed with the patient in detail the risks,benefits,alternatives and indications.The risk of aspiration, bleeding, soft tissue injury, perforation of the stomach/esophagus/colon and other potential concomitant complications were explained to the patient in details also the potential need for Thoracotomy and or Laproscoy/Laparotomy to repair any related complications including but not limited to colectomy and or Closotomy. The patient understood this well and did agree to proceed. Rationale was carefully and clearly discussed with the patient.Appropriate informed consent have been reviewed and signed Verbal and written Instructions were given to the patient for colonoscopy prep Coding Level of Care Code Acute Engineering Mathematician for Rom Gupta
[2020-09-17] MEDS: sodium chloride 0.9% 1,000 ML 30 ML IV (09:37)
[2020-09-17 10:31] VITALS: BP 112/65; PULSE 82; RESP 16; TEMP 36.4; O2SAT 99
[2020-09-17 10:53] VITALS: BP 118/70; PULSE 80; RESP 16; TEMP 36.6; O2SAT 98
--- NOTE | 2020-09-17 15:00 | ANE.PACU2 ---
Inpatient post-anesthesia follow up: Airway intact: Yes Vital signs: Temperature 97.9 F Pulse Rate 80 Respiratory Rate 16 Blood Pressure 118/70 Pulse Oximetry 98 Oxygen Delivery Me thod Room Air Oxygen Flow Rate Fraction of Inspir ed Oxygen Hydration adequate: Yes Nausea and vomiting: No Pain level: 1 Mental status: Baseline
== END 2020-09-17 11:15 | disposition home or self-care (01) ==
PROVIDERS: PCP Family Medicine; Visit Provider Surgery
PROC: 0DJ08ZZ Inspection of Upper Intestinal Tract, Via Natural or Artificial Opening Endoscopic (ICD-10-PCS; CPT 43235; principal; 2020-09-17 09:30)
PROC: 0DJD8ZZ Inspection of Lower Intestinal Tract, Via Natural or Artificial Opening Endoscopic (ICD-10-PCS; CPT 45378; 2020-09-17 09:30)
DX: K92.1 Melena (principal); R19.4 Change in bowel habit; R10.9 Unspecified abdominal pain; K29.70 Gastritis, unspecified, without bleeding; K20.90 Esophagitis, unspecified without bleeding; D12.4 Benign neoplasm of descending colon; D12.8 Benign neoplasm of rectum; K57.30 Diverticulosis of large intestine without perforation or abscess without bleeding; N40.1 Benign prostatic hyperplasia with lower urinary tract symptoms; N13.8 Other obstructive and reflux uropathy; J44.9 Chronic obstructive pulmonary disease, unspecified; M19.90 Unspecified osteoarthritis, unspecified site; K21.9 Gastro-esophageal reflux disease without esophagitis; E66.9 Obesity, unspecified; Z68.39 Body mass index [BMI] 39.0-39.9, adult; G47.30 Sleep apnea, unspecified; F17.210 Nicotine dependence, cigarettes, uncomplicated; I13.0 Hypertensive heart and chronic kidney disease with heart failure and stage 1 through stage 4 chronic kidney disease, or unspecified chronic kidney disease; N18.9 Chronic kidney disease, unspecified; I50.9 Heart failure, unspecified; Z82.49 Family history of ischemic heart disease and other diseases of the circulatory system
CPT/HCPCS: 43235; 45385; 87070; 87077; 87176; 87186; 87205; 88305; 96360; J2370; J2704; J3010; J7030

== ENCOUNTER 2020-09-21 10:28 | Outpatient (CLI) | payer MEDICARE, OTHER, SELFPAY | END 2020-09-21 10:29 | disposition home or self-care (01) | LOC: WOUND 10:29 | PROVIDERS: PCP Family Medicine; Visit Provider Nurse Practitioner Family | DX: L89.893 Pressure ulcer of other site, stage 3 (principal); F17.210 Nicotine dependence, cigarettes, uncomplicated | CPT/HCPCS: 11042 ==

== ENCOUNTER 2020-09-28 10:12 | Outpatient (CLI) | payer MEDICARE, OTHER, SELFPAY | END 2020-09-28 10:13 | disposition home or self-care (01) | LOC: WOUND 10:14 | PROVIDERS: PCP Family Medicine; Visit Provider Nurse Practitioner Family | DX: L89.892 Pressure ulcer of other site, stage 2 (principal); L97.512 Non-pressure chronic ulcer of other part of right foot with fat layer exposed; F17.210 Nicotine dependence, cigarettes, uncomplicated | CPT/HCPCS: 11042 ==

== ENCOUNTER 2020-10-05 10:51 | Outpatient (CLI) | payer MEDICARE, OTHER, SELFPAY | END 2020-10-05 10:52 | disposition home or self-care (01) | LOC: WOUND 10:52 | PROVIDERS: PCP Family Medicine; Visit Provider Emergency Medicine | DX: I96 Gangrene, not elsewhere classified (principal); L89.892 Pressure ulcer of other site, stage 2; F17.210 Nicotine dependence, cigarettes, uncomplicated | CPT/HCPCS: 11042 ==

== ENCOUNTER 2020-10-12 11:05 | Outpatient (CLI) | payer MEDICARE, OTHER, SELFPAY | END 2020-10-12 11:06 | disposition home or self-care (01) | LOC: WOUND 11:06 | PROVIDERS: PCP Family Medicine; Visit Provider Emergency Medicine | DX: L89.892 Pressure ulcer of other site, stage 2 (principal); F17.210 Nicotine dependence, cigarettes, uncomplicated | CPT/HCPCS: 11042 ==

== ENCOUNTER 2020-10-20 08:58 | Outpatient (CLI) | payer MEDICARE, OTHER, SELFPAY | END 2020-10-20 08:59 | disposition home or self-care (01) | LOC: WOUND 08:59 | PROVIDERS: PCP Family Medicine; Visit Provider Emergency Medicine | DX: L89.892 Pressure ulcer of other site, stage 2 (principal); F17.210 Nicotine dependence, cigarettes, uncomplicated | CPT/HCPCS: 11042 ==

== ENCOUNTER 2020-10-26 08:32 | Outpatient (CLI) | payer MEDICARE, OTHER, SELFPAY | END 2020-10-26 08:33 | disposition home or self-care (01) | LOC: WOUND 08:33 | PROVIDERS: PCP Family Medicine; Visit Provider Emergency Medicine | DX: L89.892 Pressure ulcer of other site, stage 2 (principal); F17.210 Nicotine dependence, cigarettes, uncomplicated | CPT/HCPCS: 11042 ==

== ENCOUNTER 2020-11-02 09:01 | Outpatient (CLI) | payer MEDICARE, OTHER, SELFPAY | END 2020-11-02 09:02 | disposition home or self-care (01) | LOC: WOUND 09:02 | PROVIDERS: PCP Family Medicine; Visit Provider Emergency Medicine | DX: L89.892 Pressure ulcer of other site, stage 2 (principal); F17.210 Nicotine dependence, cigarettes, uncomplicated | CPT/HCPCS: 11042 ==

== ENCOUNTER 2020-11-07 10:11 | Emergency (ER) | payer MEDICARE, OTHER, SELFPAY ==
[2020-11-07] VITALS (7 sets, daily range): BP systolic 105–164; BP diastolic 62–93; PULSE 60–78; RESP 15–22; TEMP 36.5–37; O2SAT 90–94; BMI 40.6
--- NOTE | 2020-11-07 10:24 | ECG_ITS ---
[facility] Test Date: 2020-11-07 Pat Name: Perry Norman Department: Room: Gender: Male Life Cycle Assessment Analyst: : 1960 Requested By: Nirmal Cespedes Order Number: [id number] Bishop MD: Daniel Null M.D. Measurements Intervals [place] Rate: 68 P: 76 [place]: 186 QRS: 30 QRSD: 123 T: 49 QT: 422 QTc: 449 Interpretive Statements SINUS RHYTHM WITH OCCASIONAL VENTRICULAR PREMATURE COMPLEXES POSSIBLE LEFT ATRIAL ENLARGEMENT [-0.1mV P-WAVE IN V1/V2] SEPTAL MYOCARDIAL INFARCTION , OF INDETERMINATE AGE [40+ ms Q WAVE IN V1/V2] Compared to ECG 05/25/2020 17:07:19 Myocardial infarct finding now present Sinus tachycardia no longer present Intraventricular conduction delay no longer present T-wave abnormality no longer present Electronically Signed On 11-07-2020 21:08:02 CDT by Daniel Null M.D. [id number]
--- NOTE | 2020-11-07 10:24 | XRR_ITS ---
PROCEDURE INFORMATION: Exam: XR Chest Exam date and time: 11/07/2020 10:24 AM Age: 60 years old Clinical indication: Dyspnea TECHNIQUE: Imaging protocol: XR of the chest. Views: 1 view. COMPARISON: CR XR chest 1V portable [id number] 05/25/2020 7:52 AM FINDINGS: Lungs: Unremarkable. No consolidation. Pleural spaces: Unremarkable. No pleural effusion. No pneumothorax. Heart/Mediastinum: Unremarkable. No cardiomegaly. Bones/joints: The patient has undergone cervical and lower thoracic surgical spine fusion. XR/XR chest 1V portable [id number] IMPRESSION: No acute cardiopulmonary abnormality.
[2020-11-07 10:52] LABS: ABG PH Result 7.36 (7.35-7.45); Arterial Blood Gas Hematocrit 39.8 % (42-52); Base Excess ABG 3.5 mmol/L (-2.0-2.0); Blood Gas Allen Test Pos; Blood Gas Operator Identificat MONRO; Blood Gas Sample Site Radial, left; Blood Gas Sample Type Arterial; Carboxyhemoglobin 4.3 %THgb (0.4-20.1); HCO3 ABG 30.1 mmol/L (22-26); HGB O2 Sat 82.7 % (95-100); Ionized Calcium Level - ABG 1.2 mmol/L (1.1-1.4); Methemoglobin 0.8 % (0.4-1.5); Oxygen Device ROOM AIR; Oxygen Saturation ABG 87.2; PO2 ABG 55.1 mmHg (80.0-100.0); Potassium Level - ABG 4.6 mmol/L (3.5-5.0)
[2020-11-07 10:52] LABS: Basophils % 0.4 %; Eosinophils # 0.2 10^3/uL (0.0-0.8); Eosinophils % 3.1 %; Hematocrit 39.5 % (42.0-52.0); Hemoglobin 12.6 g/dL (11.7-16.6); Lymphocytes # 1.3 10^3/uL (0.8-4.8); Mean Corpuscular HGB Conc 31.9 g/dL (30.0-36.0); Mean Corpuscular Hemoglobin 34.7 pg (28.0-34.0); Mean Corpuscular Volume 108.8 fl (80-94); Mean Platelet Volume 8.9 fL (7.4-10.4); Monocytes # 0.7 10^3/uL (0.2-0.9); Monocytes % 8.9 %; Neutrophils # 5.17 10^3/uL (1.8-7.7); Neutrophils % 69.9 %; Nucleated Red Blood Cells % 0.3 %; Platelet Count 188 10^3/cmm (130-400); Red Blood Count 3.63 10^6/uL (4.1-5.3); Red Cell Distribution Width 14.8 % (12.1-15.1); White Blood Count 7.4 10^3/uL (4.0-10.0)
[2020-11-07] MEDS: ipratropium-albuterol 3 mL Neb INHALATION (10:57)
[2020-11-07 11:17] LABS: Troponin(5th) Baseline 34 ng/L (0-15)
--- NOTE | 2020-11-07 11:32 | ED_ITS ---
HPI - SOB/Dyspnea General: Chief Complaint: Shortness of Breath/Dyspnea Stated Complaint: MUSCLE TRMORS INVOLUNTARY AND SOB Time Seen by Provider: 11/07/20 10:15 History of Present Illness: HPI Narrative: 60-year-old male presents emergency room complaining of shortness of breath for the last couple of days progressively worsening he has had a productive cough as well. He has loose stools chronically and seems to have increased slightly. He denies any fever sweats or chills no myalgias or headache. He has been immunized for Covid. He still smokes 3 to 4 packs/day. Denies any dysuria urgency or frequency denies any chest pain. MD elicited complaint: shortness of breath Pertinent past history: COPD Onset (ago): day(s) Context: recent illness Timing: constant Severity: moderate Exacerbating factors: exertion and coughing Relieving factors: oxygen and rest Associated symptoms: Reports chest congestion; Deny abdominal pain, chest pain, cough, diaphoresis, dizziness, extremity pain, fever(s), hemoptysis, lightheadedness, myalgias, nausea, orthopnea, palpitations, paresthesias, polydipsia, polyuria, rash, sense of impending doom, syncope or vomiting Treatment prior to arrival: oxygen Review of Systems Const: Denies: fever(s) or diaphoresis ENMT: Denies: throat pain, ear or mastoid pain, nasal discharge or nasal congestion Card: Denies: chest pain, palpitations, lightheadedness, syncope or orthopnea Resp: Reports: chest congestion; Denies: hemoptysis GI: Denies: abdominal pain, nausea or vomiting : Denies: flank pain, dysuria, urinary frequency or urinary urgency Musc: Denies: extremity pain Skin/Breast: Denies: rash or pruritus Neuro: Denies: dizziness Endo: Denies: polyuria or polydipsia PFS ED PFSH: Medical History (Updated 11/07/20 @ 13:52 by Nirmal Currie DO) Alcoholism Aortic stenosis BPH loc w urin obs/LUTS CHF (congestive heart failure) Chronic pain CKD (chronic kidney disease) Colon polyps COPD (chronic obstructive pulmonary disease) CRI (chronic renal insufficiency) DDD (degenerative disc disease) Depression with anxiety Diverticulosis DJD (degenerative joint disease) Esophageal candidiasis GERD (gastroesophageal reflux disease) HTN (hypertension) LVH (left ventricular hypertrophy) Obesity Sleep apnea Surgical History History of aortic aneurysm repair History of coronary angioplasty with insertion of stent Family History Other CAD (coronary artery disease) Social History Smoking and tobacco status: current every day smoker cigarettes Packs smoked per day: 3 Alcohol intake: current Alcohol intake frequency: 3 or more drinks per day Marital status: Current occupational status: disabled History of recent travel: No Physical Exam Const: COMMON NORMALS: no acute distress GENERAL APPEARANCE: cooperative and comfortable ORIENTATION/CONSCIOUSNESS: Yes awake, Yes oriented to person, Yes oriented to place and Yes oriented to time HENMT: COMMON NORMALS: normocephalic, atraumatic and hearing grossly normal bilaterally HEAD & SCALP: normocephalic and atraumatic Neck/C-Spine: COMMON NORMALS: no JVD Resp: AUSCULTATION: wheezes and diminished lung sounds Cardio: COMMON NORMALS: no JVD, regular rate, regular rhythm and No murmurs present (Cardio) RATE: regular rate RHYTHM: regular rhythm GI: COMMON NORMALS: Soft to palpation and No hepatosplenomegaly present AUSCULTATION: Yes normoactive bowel sounds PALPATION: Yes Soft to palpation, No Tenderness to palpation present (GI), No Guarding due to palpation present (GI) and Yes No hepatosplenomegaly present Extremity: COMMON NORMALS: normal to inspection, capillary refill normal, no clubbing, cyanosis or edema, no calf tenderness and no pedal edema Neuro: SENSORIUM/ORIENTATION: Yes oriented to person, Yes oriented to place and Yes oriented to time Skin: COMMON NORMALS: no rashes or lesions noted GENERAL SKIN EXAM: no rashes or lesions noted Course Vital Signs: Vital signs: Vital Signs Temperature 98.4 F 11/07/20 14:47 Pulse Rate 60 11/07/20 15:00 Respiratory Rate 15 11/07/20 15:00 Blood Pressure 155/93 11/07/20 15:00 Pulse Oximetry 94 11/07/20 15:00 MDM - SOB/Dyspnea MDM Narrative: Medical decision making narrative: Patient markedly improved after nebulizers and steroids. He is maintaining his oxygen sats without any supplemental O2 will discharge home on Medrol Dosepak also set him up for a nebulizer follow-up with primary care doctor within the week any worsening or change symptoms return continue his other medications Lab Data: Labs: Lab Results 11/07/20 11/07/20 11/07/20 10:39 10:45 10:45 WBC 7.4 10^3/uL 10^3/ uL (4.0-10.0) RBC 3.63 10^6/uL L 10 ^6/uL (4.1-5.3) Hgb 12.6 g/dL g/dL (11.7-16.6) Hct 39.5 % L % (42.0-52.0) MCV 108.8 fl H fl (80-94) MCH 34.7 pg H pg (28.0-34.0) MCHC 31.9 g/dL g/dL (30.0-36.0) RDW 14.8 % % (12.1-15.1) Plt Count 188 10^3/cmm 10^3 /cmm (130-400) MPV 8.9 fL fL (7.4-10.4) Neut % (Auto) 69.9 % % Lymph % (Auto) 17.0 % % Early % (Auto) 8.9 % % Eos % (Auto) 3.1 % % Baso % (Auto) 0.4 % % Neut # (Auto) 5.17 10^3/uL 10^3 /uL (1.8-7.7) Lymph # (Auto) 1.3 10^3/uL 10^3/ uL (0.8-4.8) Early # (Auto) 0.7 10^3/uL 10^3/ uL (0.2-0.9) Eos # (Auto) 0.2 10^3/uL 10^3/ uL (0.0-0.8) Baso # (Auto) 0.0 10^3/uL 10^3/ uL (0.0-0.1) Nucleated RBC % (a uto) 0.3 % % Nucleated RBCs # 0.0 /100WBC /100W BC Specimen Type Arterial Sample Site Radial, left ABG pH 7.36 (7.35-7.45) ABG pCO2 53.0 mmHg H mmHg (35-45) ABG pO2 55.1 mmHg L mmHg (80.0-100.0) ABG HCO3 30.1 mmol/L H mmo l/L (22-26) ABG O2 Saturation 87.2 ABG Base Excess 3.5 mmol/L H mmol /L (-2.0-2.0) [place] Test Pos A-a O2 Gradient 4.0 mmHg L mmHg (5-10) Hematocrit 39.8 % L % (42-52) Hgb O2 Saturation 82.7 % L % (95-100) Carboxyhemoglobin 4.3 %THgb %THgb (0.4-20.1) Methemoglobin 0.8 % % (0.4-1.5) Total Hemoglobin 13.0 g/dL L g/dL (14-18) Sodium 141.0 mmol/L mmol /L 139 mmol/L mmol/L (131-143) (136-145) Potassium 4.6 mmol/L mmol/L 4.7 mmol/L mmol/L (3.5-5.0) (3.5-5.1) Glucose 107.0 mg/dL mg/dL 99 mg/dL mg/dL (70-115) (65-115) Ionized Calcium 1.2 mmol/L mmol/L (1.1-1.4) O2 Delivery Device Room air FiO2 21.0 % % Head Of Geography ID [place] Chloride 102 mmol/L mmol/L (98-107) Carbon Dioxide 28 mmol/L mmol/L (22-29) Anion Gap 13.7 (5-19) BUN 19 mg/dL mg/dL (8-23) Creatinine 1.4 mg/dL H mg/dL (0.7-1.2) GFR Calculation 51.7 mL/min L mL/ min (90-130) Calculated Osmolal ity 290 mOsm/kg mOsm/ kg (285-295) Calcium 8.6 mg/dL mg/dL (8.5-10.5) Total Bilirubin 0.3 mg/dL mg/dL (0.15-1.2) AST 20 U/L U/L (0-40) ALT 16 U/L U/L (0-41) Alkaline Phosphata se 140 IU/L H IU/L (40-130) Creatine Kinase 50 U/L U/L (39-308) Troponin T Baselin e Troponin T 120 Min eek Delta Troponin T NT-Pro-B Natriuret Pep 550 pg/mL H pg/mL (0-125) Total Protein 6.3 g/dL L g/dL (6.6-8.7) Albumin 3.6 g/dL g/dL (3.5-5.2) Globulin 2.7 g/dL g/dL (1.3-4.6) SARS-CoV-2 Ag (Rap id) 11/07/20 11/07/20 11/07/20 10:45 11:38 13:19 WBC RBC Hgb Hct MCV MCH MCHC RDW Plt Count MPV Neut % (Auto) Lymph % (Auto) Early % (Auto) Eos % (Auto) Baso % (Auto) Neut # (Auto) Lymph # (Auto) Early # (Auto) Eos # (Auto) Baso # (Auto) Nucleated RBC % (a uto) Nucleated RBCs # Specimen Type Sample Site ABG pH ABG pCO2 ABG pO2 ABG HCO3 ABG O2 Saturation ABG Base Excess Augustine Test A-a O2 Gradient Hematocrit Hgb O2 Saturation Carboxyhemoglobin Methemoglobin Total Hemoglobin Sodium Potassium Glucose Ionized Calcium O2 Delivery Device FiO2 Head Of Geography ID Chloride Carbon Dioxide Anion Gap BUN Creatinine GFR Calculation Calculated Osmolal ity Calcium Total Bilirubin AST ALT Alkaline Phosphata se Creatine Kinase Troponin T Baselin e 34 ng/L H ng/L (0-15) Troponin T 120 Min eek 25.13 ng/L H ng/L (0-15) Delta Troponin T -8.87 ABS# L ABS# (0-10) NT-Pro-B Natriuret Pep Total Protein Albumin Globulin SARS-CoV-2 Ag (Rap id) Negative (Negative) Discharge Plan Discharge Patient Disposition: Home Clinical Impression: Acute exacerbation of chronic obstructive airways disease Condition: Stable Prescriptions: New Medrol (Keith) 4 mg tablets,dose pack See Rx Instructions .ROUTE .COMPLEX Qty: 21 RF: 0 ipratropium-albuterol 0.5 mg-3 mg(2.5 mg base)/3 mL solution for nebulization 3 ml inhalation Q4H PRN (Reason: shortness of breath or wheezing) Qty: 180 RF: 0 No Action mupirocin 2 % ointment 1 applic TOPICAL BID Qty: 30 RF: 2 pramipexole [Mirapex] 0.25 mg tablet 0.5 mg PO BEDTIME RF: 0 lovastatin 40 mg tablet 40 mg PO DAILY RF: 0 oxycodone-acetaminophen [Percocet] 10-325 mg tablet 1 tab PO Q8H PRN (Reason: Pain) RF: 0 spironolactone 50 mg tablet 25 mg PO DAILY RF: 0 gabapentin 600 mg tablet 600 mg PO QID RF: 0 omeprazole 40 mg capsule,delayed release(DR/EC) 40 mg PO BID RF: 0 albuterol sulfate [Ventolin HFA] 90 mcg/actuation HFA aerosol inhaler 2 puff INHALATION Q6H PRN (Reason: Shortness Of Breath) RF: 0 carvedilol [Coreg] 25 mg tablet 25 mg PO BID RF: 0 azelastine 137 mcg (0.1 %) aerosol,spray 1 spray INTRANASAL BID RF: 0 bisacodyl [Dulcolax (bisacodyl)] 5 mg tablet,delayed release (DR/EC) 5 mg PO DAILY PRN (Reason: Constipation) RF: 0 baclofen 20 mg tablet 20 mg PO TID RF: 0 testosterone cypionate [Depo-Testosterone] 100 mg/mL oil 100 mg IM .every 21 days RF: 0 clotrimazole 1 % cream 1 applic topical PRN PRN (Reason: DRYNESS ON FEET) RF: 0 buspirone 10 mg tablet 10 mg PO TID RF: 0 tadalafil 20 mg tablet 20 mg PO PRN PRN (Reason: Sexual Activity) RF: 0 silver sulfadiazine [SSD] 1 % cream 1 applic topical PRN PRN (Reason: DRYNESS) RF: 0 hydralazine 50 mg tablet 50 mg PO BID RF: 0 triamcinolone acetonide 0.5 % cream 1 applic topical BID RF: 0 nystatin 100,000 unit/mL suspension 1 ml PO QID RF: 0 fluticasone propionate 50 mcg/actuation spray,suspension 1 spray intranasal BID RF: 0 ergocalciferol (vitamin D2) 1,250 mcg (50,000 unit) Capsule 1,250 mcg PO Q7D RF: 0 losartan 100 mg Tablet 100 mg PO DAILY RF: 0 fluoxetine 20 mg Capsule 60 mg PO DAILY RF: 0 tamsulosin 0.4 mg capsule 0.4 mg PO DAILY RF: 0 Advair Diskus 500-50 mcg/dose Blister With Device 1 inh INHALATION Q12H RF: 0 Discharge Orders: Discharge ED (Routine); Ordered 11/07/20 Ordered By: Nirmal Currie Other Ambulatory Orders: DME: Nebulizer with Neb Kit (Order) Location: None Selected Ordered By: Nirmal Currie Referrals: Barbara Longo DO [Primary Care Provider] - Discharge Diet: Usual diet Discharge Activity: Limit activity as instructed Patient Instructions: Opioid Safety Activity Restrictions/Additional Instructions: Follow-up with your primary care doctor within the next week. Return to the emergency room if you have further problems. Coding Level of Care Code ED Refrigeration Tech for Rom Fwd Exam Comprehensive
[2020-11-07 11:42] LABS: Alanine Aminotransferase 16 U/L (0-41); Albumin Level 3.6 g/dL (3.5-5.2); Alkaline Phosphatase 140 IU/L (40-130); Anion Gap 13.7 (5-19); Aspartate Amino Transferase 20 U/L (0-40); Blood Urea Nitrogen 19 mg/dL (8-23); Calcium 8.6 mg/dL (8.5-10.5); Carbon Dioxide 28 mmol/L (22-29); Chloride 102 mmol/L (98-107); Creatine Phosphokinase 50 U/L (39-308); Creatinine Clr Calc Pharmacy 80.1517; Globulin 2.7 g/dL (1.3-4.6); Glomerular Filtration Rate 51.7 mL/min (90-130); Glucose 99 mg/dL (65-115); NT Pro B Type Natriuretic Pept 550 pg/mL (0-125); Osmolality Calculated 290 mOsm/kg (285-295); Potassium 4.7 mmol/L (3.5-5.1); Sodium 139 mmol/L (136-145); Total Bilirubin 0.3 mg/dL (0.15-1.2); Total Protein 6.3 g/dL (6.6-8.7)
[2020-11-07 12:20] LABS: SARS Covid-2 Antigen Negative (Negative)
--- NOTE | 2020-11-07 12:24 | ECG_ITS ---
[facility] Test Date: 2020-11-07 Pat Name: Perry Norman Department: Room: Gender: Male Monitor Technician: : 1960 Requested By: Nirmal Cespedes Order Number: [id number] Bishop MD: Daniel Null M.D. Measurements Intervals [place] Rate: 59 P: 64 [place]: 189 QRS: 19 QRSD: 122 T: 7 QT: 439 QTc: 436 Interpretive Statements SINUS BRADYCARDIA POSSIBLE LEFT ATRIAL ENLARGEMENT [-0.1mV P-WAVE IN V1/V2] SEPTAL MYOCARDIAL INFARCTION , OF INDETERMINATE AGE [40+ ms Q WAVE IN V1/V2] Compared to ECG 11/07/2020 10:38:20 Sinus rhythm no longer present Ventricular premature complex(es) no longer present Myocardial infarct finding still present Electronically Signed On 11-07-2020 21:13:19 CDT by Daniel Null M.D. [id number]
[2020-11-07] MEDS: FUROsemide 10 mg/mL SDV 4mL 40 MG IVP (13:56)
[2020-11-07 14:05] LABS: Troponin 5 2HR 25.13 ng/L (0-15)
[2020-11-07 14:09] LABS: Troponin 5 2HR Delta -8.87 ABS# (0-10)
--- NOTE | 2020-11-07 16:24 | ECG_ITS ---
[facility] Test Date: 2020-11-07 Pat Name: Perry Norman Department: Room: Gender: Male Safe Technician: : 1960 Requested By: Nirmal Cespedes Order Number: [id number] Bishop MD: Daniel Null M.D. Measurements Intervals [place] Rate: 58 P: 62 [place]: 189 QRS: 23 QRSD: 125 T: 24 QT: 443 QTc: 437 Interpretive Statements SINUS BRADYCARDIA POSSIBLE LEFT ATRIAL ENLARGEMENT [-0.1mV P-WAVE IN V1/V2] SEPTAL MYOCARDIAL INFARCTION , OF INDETERMINATE AGE [40+ ms Q WAVE IN V1/V2] Compared to ECG 11/07/2020 12:38:59 No significant changes Electronically Signed On 11-07-2020 21:13:16 CDT by Daniel Null M.D. [id number]
[2020-11-09 13:52] LABS: Coronavirus Test Green County Not Detected
== END 2020-11-07 15:00 | disposition home or self-care (01) ==
PROVIDERS: Emergency Provider Family Medicine; PCP Family Medicine
DX: J44.1 Chronic obstructive pulmonary disease with (acute) exacerbation (principal); I11.0 Hypertensive heart disease with heart failure; I50.9 Heart failure, unspecified; Z95.5 Presence of coronary angioplasty implant and graft; F17.210 Nicotine dependence, cigarettes, uncomplicated; Z20.822 Contact with and (suspected) exposure to COVID-19
CPT/HCPCS: 36415; 36600; 71045; 80051; 80053; 82330; 82550; 82805; 83880; 84484; 85025; 87426; 87635; 93005; 94640; 96374; 96375; 99284; J1940; J2930

== ENCOUNTER 2020-11-16 09:06 | Outpatient (CLI) | payer MEDICARE, OTHER, SELFPAY | END 2020-11-16 09:07 | disposition home or self-care (01) | LOC: WOUND 09:13 | PROVIDERS: PCP Family Medicine; Visit Provider Emergency Medicine | DX: I96 Gangrene, not elsewhere classified (principal); L89.892 Pressure ulcer of other site, stage 2; F17.210 Nicotine dependence, cigarettes, uncomplicated | CPT/HCPCS: 11042 ==

== ENCOUNTER 2020-11-23 13:05 | Outpatient (CLI) | payer MEDICARE, OTHER, SELFPAY | END 2020-11-23 13:06 | disposition home or self-care (01) | LOC: WOUND 13:06 | PROVIDERS: PCP Family Medicine; Visit Provider Emergency Medicine | DX: L89.892 Pressure ulcer of other site, stage 2 (principal); F17.210 Nicotine dependence, cigarettes, uncomplicated | CPT/HCPCS: 11042; A6251 ==

== ENCOUNTER 2020-11-30 13:46 | Outpatient (CLI) | payer MEDICARE, OTHER, SELFPAY | END 2020-11-30 13:47 | disposition home or self-care (01) | LOC: WOUND 13:47 | PROVIDERS: PCP Family Medicine; Visit Provider Emergency Medicine | DX: L89.892 Pressure ulcer of other site, stage 2 (principal); F17.210 Nicotine dependence, cigarettes, uncomplicated | CPT/HCPCS: 15275; Q4187 ==

== ENCOUNTER 2020-12-07 13:30 | Outpatient (CLI) | payer MEDICARE, OTHER, SELFPAY | END 2020-12-07 13:31 | disposition home or self-care (01) | LOC: WOUND 13:31 | PROVIDERS: PCP Family Medicine; Visit Provider Nurse Practitioner Family | DX: L89.892 Pressure ulcer of other site, stage 2 (principal); L97.522 Non-pressure chronic ulcer of other part of left foot with fat layer exposed; F17.210 Nicotine dependence, cigarettes, uncomplicated | CPT/HCPCS: 11042 ==

== ENCOUNTER 2020-12-14 08:03 | Outpatient (CLI) | payer MEDICARE, OTHER, SELFPAY ==
--- NOTE | 2020-12-14 08:07 | NM_ITS ---
WS: [id number] NUCLEAR MEDICINE BONE SCAN 3 PHASE Radiopharmaceutical: 24.9 Tc-99m MDP mCi IV Postinjection imaging delay: 2 hr CLINICAL INFORMATION: NON PRESSURE CHRONIC ULCER R FOOT COMPARISON: None. FINDINGS: Increased blood flow, blood pool and delayed bony uptake involving the head of the first metatarsal e xtending into the proximal and distal phalanx. Delayed uptake is more prominent at the head of the fi rst metatarsal suspicious for osteomyelitis Degenerative uptake at both AC joints. Degenerative uptake involving the knees bilaterally. Right TKA . NM/NM bone 3 phase [id number] IMPRESSION: Increased blood flow, blood pool, and delayed imaging involving the head of the first metatarsal extending into the proximal and distal phalanx. Delayed uptak e is more prominent at the head of the first metatarsal suspicious for osteomye litis.
== END 2020-12-14 08:04 | disposition home or self-care (01) ==
LOC: NM 08:05
PROVIDERS: PCP Family Medicine; Visit Provider Nurse Practitioner Family
DX: L97.512 Non-pressure chronic ulcer of other part of right foot with fat layer exposed (principal)
CPT/HCPCS: 78315; A9561

== ENCOUNTER 2020-12-14 14:25 | Outpatient (CLI) | payer MEDICARE, OTHER, SELFPAY | END 2020-12-14 14:26 | disposition home or self-care (01) | LOC: WOUND 14:25 | PROVIDERS: PCP Family Medicine; Visit Provider Emergency Medicine | DX: L89.892 Pressure ulcer of other site, stage 2 (principal) | CPT/HCPCS: 11042; 15275; 78315; A6250; A6252; A9561; Q4110 ==

== ENCOUNTER 2020-12-15 | Outpatient (CLI) | payer MEDICARE, OTHER, SELFPAY | END 2020-12-15 00:01 | disposition home or self-care (01) | LOC: RAD 08-10 09:18 | PROVIDERS: PCP Family Medicine; Visit Provider Urology | DX: N40.1 Benign prostatic hyperplasia with lower urinary tract symptoms (principal) | CPT/HCPCS: 81003 ==

== ENCOUNTER 2020-12-21 13:53 | Outpatient (CLI) | payer MEDICARE, OTHER, SELFPAY | END 2020-12-21 13:54 | disposition home or self-care (01) | LOC: WOUND 13:54 | PROVIDERS: PCP Family Medicine; Visit Provider Nurse Practitioner Family | DX: L89.892 Pressure ulcer of other site, stage 2 (principal); L97.522 Non-pressure chronic ulcer of other part of left foot with fat layer exposed; F17.210 Nicotine dependence, cigarettes, uncomplicated | CPT/HCPCS: 11042 ==

== ENCOUNTER 2020-12-28 13:01 | Outpatient (CLI) | payer MEDICARE, OTHER, SELFPAY | END 2020-12-28 13:02 | disposition home or self-care (01) | PROVIDERS: PCP Family Medicine; Visit Provider Emergency Medicine | DX: L89.892 Pressure ulcer of other site, stage 2 (principal); I10 Essential (primary) hypertension; L97.522 Non-pressure chronic ulcer of other part of left foot with fat layer exposed; L97.512 Non-pressure chronic ulcer of other part of right foot with fat layer exposed; J44.9 Chronic obstructive pulmonary disease, unspecified; F17.210 Nicotine dependence, cigarettes, uncomplicated | CPT/HCPCS: 11042; 15275; 80048; 83735; 83880; A6250; Q4110 ==

== ENCOUNTER 2021-01-11 13:00 | Outpatient (CLI) | payer MEDICARE, OTHER, SELFPAY | END 2021-01-11 13:01 | disposition home or self-care (01) | LOC: WOUND 13:01 | PROVIDERS: PCP Family Medicine; Visit Provider Emergency Medicine | DX: L89.892 Pressure ulcer of other site, stage 2 (principal); L97.522 Non-pressure chronic ulcer of other part of left foot with fat layer exposed; L97.512 Non-pressure chronic ulcer of other part of right foot with fat layer exposed; F17.210 Nicotine dependence, cigarettes, uncomplicated; J44.9 Chronic obstructive pulmonary disease, unspecified | CPT/HCPCS: 11042; 15275; A6250; Q4110 ==

== ENCOUNTER 2021-01-18 09:35 | Outpatient (RCR) | payer MEDICARE, OTHER, SELFPAY | END 2021-02-12 23:59 | disposition home or self-care (01) | LOC: WOUND 09:35 | PROVIDERS: PCP Family Medicine; Visit Provider Emergency Medicine | DX: L89.892 Pressure ulcer of other site, stage 2 (principal); L97.522 Non-pressure chronic ulcer of other part of left foot with fat layer exposed; L97.512 Non-pressure chronic ulcer of other part of right foot with fat layer exposed; F17.210 Nicotine dependence, cigarettes, uncomplicated; J44.9 Chronic obstructive pulmonary disease, unspecified | CPT/HCPCS: 11042; 87070 ==

== ENCOUNTER 2021-01-25 11:07 | Outpatient (CLI) | payer MEDICARE, OTHER, SELFPAY | END 2021-01-25 11:08 | disposition home or self-care (01) | LOC: WOUND 11:08 | PROVIDERS: PCP Family Medicine; Visit Provider Emergency Medicine | DX: I96 Gangrene, not elsewhere classified; L97.522 Non-pressure chronic ulcer of other part of left foot with fat layer exposed; L97.512 Non-pressure chronic ulcer of other part of right foot with fat layer exposed; F17.210 Nicotine dependence, cigarettes, uncomplicated; J44.9 Chronic obstructive pulmonary disease, unspecified; I10 Essential (primary) hypertension; L89.892 Pressure ulcer of other site, stage 2 | CPT/HCPCS: 11042 ==

== ENCOUNTER 2021-01-26 15:09 | Outpatient (CLI) | payer MEDICARE, OTHER, SELFPAY ==
--- NOTE | 2021-01-26 15:12 | US_ITS ---
WS: [id number] ULTRASOUND RENAL TECHNIQUE: Ultrasound examination of both kidneys. CLINICAL INFORMATION: BILATERAL RENAL MASSES COMPARISON: CT and ultrasound FINDINGS: Technically difficult examination due to body habitus RIGHT: Bilateral renal cysts. Largest in the right measures 3.3 x 3.7 CM. Largest in the left measure s 8.7 x 7.9 cm. No visualized solid renal lesions today. No solid lesions to correspond to the prior imaging findings although exam is somewhat limited. Right kidney is normal in size and appearance. Echogenicity: Normal. Cortical thickness: 0.7 cm; Normal. Hydronephrosis: None. Perinephric fluid: None. Right kidney measures: 11.0 cm x 3.8 cm x 3.7 cm. LEFT: Left kidney is normal in size and appearance. Echogenicity: Normal. Cortical thickness: 1.7 cm; Normal. Hydronephrosis: None. Perinephric fluid: None. Left kidney measures: 15.3 cm x 6.9 cm x 4.8 cm. Normal visualized aorta. US/US renal BI* [id number] IMPRESSION: Technically difficult examination. 1. No hydronephrosis in either kidney. 2. Bilateral renal cysts, largest measures 8.7 x 7.9 cm mid left kidney and 3. 3 x 3.7 cm inferior right kidney. 3. No visualized solid renal masses today. Recommend continued surveillance 4. Normal bladder
== END 2021-01-26 15:10 | disposition home or self-care (01) ==
LOC: RAD 15:10
PROVIDERS: PCP Family Medicine; Visit Provider Urology
DX: N28.89 Other specified disorders of kidney and ureter (principal); Q61.02 Congenital multiple renal cysts
CPT/HCPCS: 76770; 81003

== ENCOUNTER 2021-02-01 10:36 | Outpatient (CLI) | payer MEDICARE, OTHER, SELFPAY | END 2021-02-01 10:37 | disposition home or self-care (01) | LOC: WOUND 10:37 | PROVIDERS: PCP Family Medicine; Visit Provider Nurse Practitioner Family | DX: I96 Gangrene, not elsewhere classified (principal); L97.522 Non-pressure chronic ulcer of other part of left foot with fat layer exposed; L89.892 Pressure ulcer of other site, stage 2; F17.210 Nicotine dependence, cigarettes, uncomplicated; J44.9 Chronic obstructive pulmonary disease, unspecified | CPT/HCPCS: 11042 ==

== ENCOUNTER 2021-02-08 10:20 | Outpatient (CLI) | payer MEDICARE, OTHER, SELFPAY | END 2021-02-08 10:21 | disposition home or self-care (01) | LOC: WOUND 10:21 | PROVIDERS: PCP Family Medicine; Visit Provider Nurse Practitioner Family | DX: L89.892 Pressure ulcer of other site, stage 2 (principal); L97.522 Non-pressure chronic ulcer of other part of left foot with fat layer exposed; F17.210 Nicotine dependence, cigarettes, uncomplicated; J44.9 Chronic obstructive pulmonary disease, unspecified | CPT/HCPCS: 11042 ==

== ENCOUNTER 2021-02-22 08:42 | Outpatient (CLI) | payer MEDICARE, OTHER, SELFPAY | END 2021-02-22 08:43 | disposition home or self-care (01) | LOC: WOUND 08:44 | PROVIDERS: PCP Family Medicine; Visit Provider Thoracic Surgery (Cardiothoracic Vascular Surgery) | DX: L89.892 Pressure ulcer of other site, stage 2 (principal); L97.522 Non-pressure chronic ulcer of other part of left foot with fat layer exposed; F17.210 Nicotine dependence, cigarettes, uncomplicated; J44.9 Chronic obstructive pulmonary disease, unspecified | CPT/HCPCS: 11042; 97597; A6197 ==

== ENCOUNTER 2021-03-01 08:42 | Outpatient (CLI) | payer MEDICARE, OTHER, SELFPAY | END 2021-03-01 08:43 | disposition home or self-care (01) | LOC: WOUND 08:43 | PROVIDERS: PCP Family Medicine; Visit Provider Nurse Practitioner Family | DX: L89.892 Pressure ulcer of other site, stage 2 (principal); L97.522 Non-pressure chronic ulcer of other part of left foot with fat layer exposed; F17.210 Nicotine dependence, cigarettes, uncomplicated; J44.9 Chronic obstructive pulmonary disease, unspecified | CPT/HCPCS: 11042 ==

== ENCOUNTER 2021-03-09 10:27 | Outpatient (CLI) | payer MEDICARE, OTHER, SELFPAY | END 2021-03-09 10:28 | disposition home or self-care (01) | LOC: WOUND 10:28 | PROVIDERS: PCP Family Medicine; Visit Provider Emergency Medicine | DX: L89.892 Pressure ulcer of other site, stage 2 (principal); L97.522 Non-pressure chronic ulcer of other part of left foot with fat layer exposed; F17.210 Nicotine dependence, cigarettes, uncomplicated; J44.9 Chronic obstructive pulmonary disease, unspecified | CPT/HCPCS: 11042 ==

== ENCOUNTER 2021-03-11 15:19 | Outpatient (CLI) | payer MEDICARE, OTHER, SELFPAY | END 2021-03-11 15:20 | disposition home or self-care (01) | LOC: SPT 15:20 | PROVIDERS: PCP Family Medicine; Visit Provider Emergency Medicine | DX: R26.89 Other abnormalities of gait and mobility (principal) | CPT/HCPCS: 97760 ==

== ENCOUNTER 2021-03-16 10:24 | Outpatient (CLI) | payer MEDICARE, OTHER, SELFPAY | END 2021-03-16 10:25 | disposition home or self-care (01) | LOC: WOUND 10:25 | PROVIDERS: PCP Family Medicine; Visit Provider Emergency Medicine | DX: L97.525 Non-pressure chronic ulcer of other part of left foot with muscle involvement without evidence of necrosis (principal); L97.512 Non-pressure chronic ulcer of other part of right foot with fat layer exposed | CPT/HCPCS: 11042 ==

== ENCOUNTER 2021-03-30 10:38 | Outpatient (CLI) | payer MEDICARE, OTHER, SELFPAY | END 2021-03-30 10:39 | disposition home or self-care (01) | LOC: WOUND 10:41 | PROVIDERS: PCP Family Medicine; Visit Provider Emergency Medicine | DX: L89.892 Pressure ulcer of other site, stage 2 (principal); L97.522 Non-pressure chronic ulcer of other part of left foot with fat layer exposed; F17.210 Nicotine dependence, cigarettes, uncomplicated; J44.9 Chronic obstructive pulmonary disease, unspecified | CPT/HCPCS: 11042 ==

== ENCOUNTER 2021-04-06 08:39 | Outpatient (CLI) | payer MEDICARE, OTHER, SELFPAY | END 2021-04-06 08:40 | disposition home or self-care (01) | LOC: WOUND 08:40 | PROVIDERS: PCP Family Medicine; Visit Provider Emergency Medicine | DX: L89.892 Pressure ulcer of other site, stage 2 (principal); L97.522 Non-pressure chronic ulcer of other part of left foot with fat layer exposed; F17.210 Nicotine dependence, cigarettes, uncomplicated; J44.9 Chronic obstructive pulmonary disease, unspecified | CPT/HCPCS: 11042; 99212 ==

== ENCOUNTER 2021-04-13 09:06 | Outpatient (CLI) | payer MEDICARE, OTHER, SELFPAY | END 2021-04-13 09:07 | disposition home or self-care (01) | LOC: WOUND 09:07 | PROVIDERS: PCP Family Medicine; Visit Provider Thoracic Surgery (Cardiothoracic Vascular Surgery) | DX: I96 Gangrene, not elsewhere classified (principal); L89.892 Pressure ulcer of other site, stage 2; L97.529 Non-pressure chronic ulcer of other part of left foot with unspecified severity; F17.210 Nicotine dependence, cigarettes, uncomplicated | CPT/HCPCS: 11042; 97597 ==

== ENCOUNTER 2021-04-20 08:54 | Outpatient (CLI) | payer MEDICARE, OTHER, SELFPAY | END 2021-04-20 08:55 | disposition home or self-care (01) | LOC: WOUND 08:59 | PROVIDERS: PCP Family Medicine; Visit Provider Emergency Medicine | DX: L89.892 Pressure ulcer of other site, stage 2 (principal); L97.522 Non-pressure chronic ulcer of other part of left foot with fat layer exposed; F17.210 Nicotine dependence, cigarettes, uncomplicated; L97.519 Non-pressure chronic ulcer of other part of right foot with unspecified severity | CPT/HCPCS: 11042; 80053; 85025 ==

== ENCOUNTER 2021-04-20 16:09 | Outpatient (CLI) | payer MEDICARE, OTHER, SELFPAY ==
[2021-04-20 17:28] LABS: Basophils # 0.1 10^3/uL (0.0-0.1); Basophils % 0.6 %; Eosinophils # 0.3 10^3/uL (0.0-0.8); Eosinophils % 3.4 %; Hematocrit 46.8 % (42.0-52.0); Hemoglobin 14.8 g/dL (11.7-16.6); Lymphocytes # 1.8 10^3/uL (0.8-4.8); Lymphocytes % 23.3 %; Mean Corpuscular HGB Conc 31.6 g/dL (30.0-36.0); Mean Corpuscular Hemoglobin 32.4 pg (28.0-34.0); Mean Corpuscular Volume 102.4 fl (80-94); Mean Platelet Volume 8.5 fL (7.4-10.4); Monocytes # 0.7 10^3/uL (0.2-0.9); Monocytes % 8.4 %; Neutrophils # 5.05 10^3/uL (1.8-7.7); Neutrophils % 63.9 %; Nucleated Red Blood Cells % 0 %; Platelet Count 161 10^3/cmm (130-400); Red Blood Count 4.57 10^6/uL (4.1-5.3); White Blood Count 7.9 10^3/uL (4.0-10.0)
[2021-04-20 17:51] LABS: Alanine Aminotransferase 24 U/L (0-41); Alkaline Phosphatase 129 IU/L (40-130); Anion Gap 15.1 (5-19); Aspartate Amino Transferase 48 U/L (0-40); Blood Urea Nitrogen 19 mg/dL (8-23); Calcium 9.6 mg/dL (8.5-10.5); Carbon Dioxide 29 mmol/L (22-29); Chloride 100 mmol/L (98-107); Globulin 3.5 g/dL (1.3-4.6); Glomerular Filtration Rate 56.3 mL/min (90-130); Glucose 115 mg/dL (65-115); Osmolality Calculated 293 mOsm/kg (285-295); Potassium 4.1 mmol/L (3.5-5.1); Sodium 140 mmol/L (136-145); Total Bilirubin 0.3 mg/dL (0.15-1.2); Total Protein 7.5 g/dL (6.6-8.7)
== END 2021-04-20 16:10 | disposition home or self-care (01) ==
PROVIDERS: PCP Family Medicine; Visit Provider Emergency Medicine
DX: L97.519 Non-pressure chronic ulcer of other part of right foot with unspecified severity (principal)
CPT/HCPCS: 80053; 85025

== ENCOUNTER 2021-04-27 14:20 | Outpatient (CLI) | payer MEDICARE, OTHER, SELFPAY | END 2021-04-27 14:21 | disposition home or self-care (01) | LOC: WOUND 14:21 | PROVIDERS: PCP Family Medicine; Visit Provider Emergency Medicine | DX: L97.522 Non-pressure chronic ulcer of other part of left foot with fat layer exposed (principal); L89.892 Pressure ulcer of other site, stage 2 | CPT/HCPCS: 11043 ==

== ENCOUNTER → 2021-05-04 09:09 | Outpatient (BNVA) | payer MEDICARE, OTHER, SELFPAY | PROVIDERS: PCP Family Medicine; Visit Provider Nurse Practitioner Family | DX: I96 Gangrene, not elsewhere classified (principal); L89.892 Pressure ulcer of other site, stage 2; L97.522 Non-pressure chronic ulcer of other part of left foot with fat layer exposed; F17.210 Nicotine dependence, cigarettes, uncomplicated; L97.512 Non-pressure chronic ulcer of other part of right foot with fat layer exposed | CPT/HCPCS: 11042; 80053; 85025 ==

== ENCOUNTER 2021-05-04 13:43 | Outpatient (CLI) | payer MEDICARE, OTHER, SELFPAY ==
[2021-05-04 14:20] LABS: Basophils % 0.5 %; Eosinophils # 0.3 10^3/uL (0.0-0.8); Eosinophils % 3.2 %; Hematocrit 42.7 % (42.0-52.0); Hemoglobin 13.8 g/dL (11.7-16.6); Lymphocytes # 1.8 10^3/uL (0.8-4.8); Lymphocytes % 21.4 %; Mean Corpuscular HGB Conc 32.3 g/dL (30.0-36.0); Mean Corpuscular Hemoglobin 32.1 pg (28.0-34.0); Mean Corpuscular Volume 99.3 fl (80-94); Mean Platelet Volume 8.7 fL (7.4-10.4); Monocytes # 0.9 10^3/uL (0.2-0.9); Monocytes % 10.9 %; Neutrophils # 5.45 10^3/uL (1.8-7.7); Neutrophils % 63.6 %; Nucleated Red Blood Cells % 0 %; Platelet Count 155 10^3/cmm (130-400); Red Cell Distribution Width 15.1 % (12.1-15.1); White Blood Count 8.6 10^3/uL (4.0-10.0)
[2021-05-04 14:47] LABS: Alanine Aminotransferase 16 U/L (0-41); Albumin Level 3.8 g/dL (3.5-5.2); Alkaline Phosphatase 114 IU/L (40-130); Anion Gap 17.3 (5-19); Aspartate Amino Transferase 21 U/L (0-40); Blood Urea Nitrogen 24 mg/dL (8-23); Calcium 9.1 mg/dL (8.5-10.5); Carbon Dioxide 26 mmol/L (22-29); Chloride 98 mmol/L (98-107); Glomerular Filtration Rate 41.3 mL/min (90-130); Glucose 92 mg/dL (65-115); Osmolality Calculated 288 mOsm/kg (285-295); Potassium 4.3 mmol/L (3.5-5.1); Sodium 137 mmol/L (136-145); Total Bilirubin 0.3 mg/dL (0.15-1.2); Total Protein 6.8 g/dL (6.6-8.7)
== END 2021-05-04 13:44 | disposition home or self-care (01) ==
LOC: LAB 13:49
PROVIDERS: PCP Family Medicine; Visit Provider Emergency Medicine
DX: L97.512 Non-pressure chronic ulcer of other part of right foot with fat layer exposed (principal)
CPT/HCPCS: 80053; 85025

== ENCOUNTER → 2021-05-11 09:17 | Outpatient (BNVA) | payer MEDICARE, OTHER, SELFPAY | PROVIDERS: PCP Family Medicine; Visit Provider Emergency Medicine | DX: I96 Gangrene, not elsewhere classified (principal); L89.892 Pressure ulcer of other site, stage 2; L97.522 Non-pressure chronic ulcer of other part of left foot with fat layer exposed; F17.210 Nicotine dependence, cigarettes, uncomplicated | CPT/HCPCS: 11042 ==

== ENCOUNTER → 2021-05-18 09:24 | Outpatient (BNVA) | payer MEDICARE, OTHER, SELFPAY | PROVIDERS: PCP Family Medicine; Visit Provider Emergency Medicine | DX: I96 Gangrene, not elsewhere classified (principal); L89.892 Pressure ulcer of other site, stage 2; L97.522 Non-pressure chronic ulcer of other part of left foot with fat layer exposed; F17.210 Nicotine dependence, cigarettes, uncomplicated; L97.512 Non-pressure chronic ulcer of other part of right foot with fat layer exposed | CPT/HCPCS: 11042; 80053; 85025 ==

== ENCOUNTER 2021-05-18 10:39 | Outpatient (CLI) | payer MEDICARE, OTHER, SELFPAY ==
[2021-05-18 11:22] LABS: Basophils # 0.1 10^3/uL (0.0-0.1); Basophils % 0.7 %; Eosinophils # 0.3 10^3/uL (0.0-0.8); Eosinophils % 4.2 %; Hematocrit 41.1 % (42.0-52.0); Hemoglobin 13.2 g/dL (11.7-16.6); Lymphocytes # 1.6 10^3/uL (0.8-4.8); Lymphocytes % 20.7 %; Mean Corpuscular HGB Conc 32.1 g/dL (30.0-36.0); Mean Corpuscular Hemoglobin 31.6 pg (28.0-34.0); Mean Corpuscular Volume 98.3 fl (80-94); Mean Platelet Volume 8.6 fL (7.4-10.4); Monocytes # 0.7 10^3/uL (0.2-0.9); Neutrophils # 4.99 10^3/uL (1.8-7.7); Nucleated Red Blood Cells % 0 %; Platelet Count 161 10^3/cmm (130-400); Red Blood Count 4.18 10^6/uL (4.1-5.3); Red Cell Distribution Width 15.9 % (12.1-15.1); White Blood Count 7.7 10^3/uL (4.0-10.0)
[2021-05-18 11:44] LABS: Alanine Aminotransferase 23 U/L (0-41); Albumin Level 4.1 g/dL (3.5-5.2); Alkaline Phosphatase 108 IU/L (40-130); Anion Gap 15.6 (5-19); Aspartate Amino Transferase 28 U/L (0-40); Blood Urea Nitrogen 12 mg/dL (8-23); Calcium 9.2 mg/dL (8.5-10.5); Carbon Dioxide 24 mmol/L (22-29); Chloride 101 mmol/L (98-107); Glomerular Filtration Rate 56.3 mL/min (90-130); Glucose 94 mg/dL (65-115); Osmolality Calculated 282 mOsm/kg (285-295); Potassium 4.6 mmol/L (3.5-5.1); Sodium 136 mmol/L (136-145); Total Bilirubin 0.3 mg/dL (0.15-1.2); Total Protein 7.1 g/dL (6.6-8.7)
== END 2021-05-18 10:40 | disposition home or self-care (01) ==
LOC: LAB 10:43
PROVIDERS: PCP Family Medicine; Visit Provider Emergency Medicine
DX: L97.512 Non-pressure chronic ulcer of other part of right foot with fat layer exposed (principal)
CPT/HCPCS: 11042; 80053; 85025

== ENCOUNTER → 2021-05-25 09:23 | Outpatient (BNVA) | payer MEDICARE, OTHER, SELFPAY | PROVIDERS: PCP Family Medicine; Visit Provider Emergency Medicine | DX: I96 Gangrene, not elsewhere classified (principal); L89.892 Pressure ulcer of other site, stage 2; L97.522 Non-pressure chronic ulcer of other part of left foot with fat layer exposed; F17.210 Nicotine dependence, cigarettes, uncomplicated; L97.512 Non-pressure chronic ulcer of other part of right foot with fat layer exposed | CPT/HCPCS: 11042; 11045; 80053; 85025 ==

== ENCOUNTER 2021-05-25 10:36 | Outpatient (CLI) | payer MEDICARE, OTHER, SELFPAY ==
[2021-05-25 11:00] LABS: Basophils # 0.1 10^3/uL (0.0-0.1); Basophils % 0.8 %; Eosinophils # 0.3 10^3/uL (0.0-0.8); Eosinophils % 4.2 %; Hematocrit 40.1 % (42.0-52.0); Hemoglobin 12.9 g/dL (11.7-16.6); Lymphocytes # 1.6 10^3/uL (0.8-4.8); Lymphocytes % 25.7 %; Mean Corpuscular HGB Conc 32.2 g/dL (30.0-36.0); Mean Corpuscular Hemoglobin 31.8 pg (28.0-34.0); Mean Corpuscular Volume 98.8 fl (80-94); Mean Platelet Volume 8.9 fL (7.4-10.4); Monocytes # 0.9 10^3/uL (0.2-0.9); Monocytes % 14.8 %; Neutrophils # 3.37 10^3/uL (1.8-7.7); Neutrophils % 54.2 %; Nucleated Red Blood Cells % 0 %; Platelet Count 153 10^3/cmm (130-400); Red Blood Count 4.06 10^6/uL (4.1-5.3); Red Cell Distribution Width 16.3 % (12.1-15.1); White Blood Count 6.2 10^3/uL (4.0-10.0)
[2021-05-25 11:19] LABS: Alanine Aminotransferase 20 U/L (0-41); Albumin Level 3.8 g/dL (3.5-5.2); Alkaline Phosphatase 100 IU/L (40-130); Aspartate Amino Transferase 23 U/L (0-40); Blood Urea Nitrogen 12 mg/dL (8-23); Calcium 9.1 mg/dL (8.5-10.5); Carbon Dioxide 30 mmol/L (22-29); Chloride 98 mmol/L (98-107); Globulin 2.8 g/dL (1.3-4.6); Glomerular Filtration Rate 61.8 mL/min (90-130); Glucose 94 mg/dL (65-115); Osmolality Calculated 280 mOsm/kg (285-295); Sodium 135 mmol/L (136-145); Total Bilirubin 0.3 mg/dL (0.15-1.2); Total Protein 6.6 g/dL (6.6-8.7)
[2021-05-25 11:20] LABS: Anion Gap 11.4 (5-19); Potassium 4.4 mmol/L (3.5-5.1)
== END 2021-05-25 10:37 | disposition home or self-care (01) ==
LOC: LAB 10:40
PROVIDERS: PCP Family Medicine; Visit Provider Emergency Medicine
DX: L97.512 Non-pressure chronic ulcer of other part of right foot with fat layer exposed (principal)
CPT/HCPCS: 11042; 80053; 85025; 99212

== ENCOUNTER → 2021-06-01 09:20 | Outpatient (BNVA) | payer MEDICARE, OTHER, SELFPAY | PROVIDERS: PCP Family Medicine; Visit Provider Emergency Medicine | DX: L89.892 Pressure ulcer of other site, stage 2 (principal); L97.522 Non-pressure chronic ulcer of other part of left foot with fat layer exposed; L89.899 Pressure ulcer of other site, unspecified stage; I96 Gangrene, not elsewhere classified; F17.210 Nicotine dependence, cigarettes, uncomplicated | CPT/HCPCS: 11042; 99212 ==

== ENCOUNTER → 2021-06-03 08:23 | Outpatient (BNVA) | payer MEDICARE, OTHER, SELFPAY | PROVIDERS: PCP Family Medicine; Visit Provider Physician Assistant | DX: M51.37 Other intervertebral disc degeneration, lumbosacral region (principal); M47.816 Spondylosis without myelopathy or radiculopathy, lumbar region; L97.511 Non-pressure chronic ulcer of other part of right foot limited to breakdown of skin; Z98.1 Arthrodesis status | CPT/HCPCS: 72110; 99204; 99999 ==

== ENCOUNTER → 2021-06-08 10:15 | Outpatient (BNVA) | payer MEDICARE, OTHER, SELFPAY | PROVIDERS: PCP Family Medicine; Visit Provider Emergency Medicine | DX: I96 Gangrene, not elsewhere classified (principal); L89.892 Pressure ulcer of other site, stage 2; F17.210 Nicotine dependence, cigarettes, uncomplicated; L97.521 Non-pressure chronic ulcer of other part of left foot limited to breakdown of skin | CPT/HCPCS: 11042 ==

== ENCOUNTER → 2021-06-15 09:46 | Outpatient (BNVA) | payer MEDICARE, OTHER, SELFPAY | PROVIDERS: PCP Family Medicine; Visit Provider Emergency Medicine | DX: L89.892 Pressure ulcer of other site, stage 2 (principal); I96 Gangrene, not elsewhere classified; F17.210 Nicotine dependence, cigarettes, uncomplicated; L97.522 Non-pressure chronic ulcer of other part of left foot with fat layer exposed | CPT/HCPCS: 11042 ==

== ENCOUNTER → 2021-06-22 09:43 | Outpatient (BNVA) | payer MEDICARE, OTHER, SELFPAY | PROVIDERS: PCP Family Medicine; Visit Provider Emergency Medicine | DX: I96 Gangrene, not elsewhere classified (principal); L89.892 Pressure ulcer of other site, stage 2; L97.522 Non-pressure chronic ulcer of other part of left foot with fat layer exposed; F17.210 Nicotine dependence, cigarettes, uncomplicated | CPT/HCPCS: 11042; 15275; A6250; A6251; Q4205 ==

== ENCOUNTER 2021-06-23 10:26 | Inpatient (IN) | payer MEDICARE, OTHER, SELFPAY ==
[2021-06-23] VITALS (107 sets, daily range): BP systolic 62–198; BP diastolic 38–109; PULSE 58–95; RESP 7–20; TEMP 34.4–36.7; O2SAT 90–100
[2021-06-23 11:22] LABS: Glucose Point of Care 117 mg/dL (70-110)
--- NOTE | 2021-06-23 11:28 | XR_ITS ---
WS: [id number] XR chest 1V portable [id number] REASON FOR EXAM: AMS FINDINGS: Significant cardiomegaly. Central vascular congestion. Lungs are hypoexpanded. No pulmonary edema or infiltrate. Severe degenerative spondylosis in the mid and lower thoracic spine. XR/XR chest 1V portable [id number] IMPRESSION: Hypoexpansion of both lungs with significant cardiomegaly and central vascular congestion.
--- NOTE | 2021-06-23 11:28 | ECG_ITS ---
[facility] Test Date: 2021-06-23 Pat Name: Perry Norman Department: Room: Gender: Male Appraiser Personal Property: : 1960 Requested By: Jason Pino Order Number: [id number] Alas MD: Maye Boyd M.D. Measurements Intervals [place] Rate: 78 P: 70 [place]: 198 QRS: 52 QRSD: 125 T: 26 QT: 421 QTc: 480 Interpretive Statements SINUS RHYTHM WITH OCCASIONAL VENTRICULAR PREMATURE COMPLEXES MODERATE INTRAVENTRICULAR CONDUCTION DELAY Compared to ECG 11/07/2020 12:43:10 Ventricular premature complex(es) now present Intraventricular conduction delay now present Sinus bradycardia no longer present Myocardial infarct finding no longer present Electronically Signed On 06-23-2021 22:35:07 CDT by Maye Boyd M.D. [id number]
--- NOTE | 2021-06-23 11:35 | ED_ITS ---
HPI - Altered Mental Status General: Chief Complaint: Altered Mental Status Stated Complaint: low BP/body jerks/drowsiness Time Seen by Provider: 06/23/21 11:19 History of Present Illness: 60 yo m smoker with myriad medical problems and medications who has recently been struggling with nonpressure wounds of both LEs after using a dremel tool to get rid of calluses. Sig other brought patient in stating for last 4 days or so he's not been doing well. He had lethargy and general weakness over the weekend then last 2 days has had hypotension in the low 90s. This morning he woke up around 0300 and she ultimately woke up around 0500. He was pale, sweaty, weak, and not doing well . He has not had focal neuro findings but has been very lethargic. She says they did resume his BP meds recently after they had been held for a few weeks--she doesn't know what the medicines are or dosages; she does not have a list. No coughing, fever, vomiting, diarrhea. She thinks wounds are doing better but says wound care was worried he could get bone infection . Last antibiotics 2 weeks ago. REPLACED BY [facility] ED PFSH: Medical History (Updated 06/23/21 @ 20:29 by Jason Pino MD) Alcoholism Aortic stenosis BPH loc w urin obs/LUTS CHF (congestive heart failure) Chronic pain CKD (chronic kidney disease) Colon polyps COPD (chronic obstructive pulmonary disease) CRI (chronic renal insufficiency) DDD (degenerative disc disease) Depression with anxiety Diverticulosis DJD (degenerative joint disease) Esophageal candidiasis GERD (gastroesophageal reflux disease) HTN (hypertension) LVH (left ventricular hypertrophy) Obesity Sleep apnea Venous (peripheral) insufficiency Surgical History History of aortic aneurysm repair History of coronary angioplasty with insertion of stent History of nasal surgery History of right knee joint replacement Hx of tonsillectomy Previous back surgery x 4 Family History Other CAD (coronary artery disease) Social History (Updated 06/23/21 @ 19:33 by Parish Mcgill MD) Smoking and tobacco status: current every day smoker cigarettes Packs smoked per day: 3 Alcohol intake: current Alcohol intake frequency: 3 or more drinks per day Household members: significant other Marital status: Marital status details: No longer with his in last 5 years, who takes care of his financials Current occupational status: disabled History of recent travel: No Physical Exam Narrative: This is a obese 60-year-old male who appears older than his stated age, he is pale and diaphoretic. He is lethargic and snoring. With vigorous stimuli he does wake up and speaks briefly but falls back asleep. He does not have any signs of trauma to the head. His pupils are relatively small. His conjunctiva are injected bilaterally. He has bidirectional horizontal nystagmus. His mucous membranes are dry. His neck exam is normal without any JVD, trachea midline. No signs of trauma to the neck. Sonorous respirations, irregular respirations, diminished breath sounds. Radial pulses are palpable and skin is warm to the touch. Heart rate is normal. Rhythm is normal. Abdominal exam reveals a large healed scar. Abdomen is obese soft and nontender with deep palpation. No masses appreciated. Penis and scrotum appear within normal limits. Mild lower extremity edema which is symmetric. No erythema of the legs. Patient does have a plantar ulcer on the forefoot of the right foot which is about the size of a dime. It does not appear overtly infected and there is no discharge. There is a plantar ulcer on the left foot laterally and the fifth metatarsal forefoot. There are some small ulcers on his left toes. Again none of these look overtly infected. Patient wakes up briefly and moves all extremities but cannot do full strength and sensory exam. Course Vital Signs: Vital signs: Vital Signs Temperature 94.0 F L 06/23/21 19:19 Pulse Rate 64 06/23/21 19:35 Respiratory Rate 16 06/23/21 20:18 Blood Pressure 171/74 06/23/21 17:55 Pulse Oximetry 96 06/23/21 20:18 MDM - Altered Mental Status Medical Decision Making Patient presents with hypotension, pallor, diaphoresis, lethargy and altered mental status. Differential diagnosis is large but initially we will try some Narcan as he reportedly takes hydrocodone frequently and also drinks alcohol. He does have conjunctival injection and some nystagmus bidirectionally. We will also start empiric antibiotics for possible sepsis. He does have nonpressure ulcers of both lower extremities but they do not appear overtly infected. Will obtain procalcitonin, lactic, start IV fluids, start vancomycin and Zosyn, check for any coingestants, drug screen, EKG, troponin, chemistries, CBC, chest x-ray, ABG. Lab Data : 06/23/21 11:30 06/23/21 11:[address] 06/23/21 14:10 IMPRESSION: 1. No acute intracranial hemorrhage or edema. 2. Paranasal sinus disease. No air-fluid levels. Chest X-Ray 06/23/21 16:56 IMPRESSION: No acute pulmonary abnormality. Life support line and tube placement as noted above. Laboratory Results WBC 10.7 10^3/uL (4.0-10.0) H 06/23/21 11:30 RBC 4.17 10^6/uL (4.1-5.3) 06/23/21 11:30 Hgb 13.4 g/dL (11.7-16.6) 06/23/21 11:30 Hct 43.1 % (42.0-52.0) 06/23/21 11:30 MCV 103.4 fl (80-94) H 06/23/21 11:30 MCH 32.1 pg (28.0-34.0) 06/23/21 11: MCHC 31.1 g/dL (30.0-36.0) 06/23/21 11:30 RDW 18.2 % (12.1-15.1) H 06/23/21 11:30 Plt Count 250 10^3/cmm (130-400) 06/23/21 11:30 MPV 9.2 fL (7.4-10.4) 06/23/21 11:30 Neut % (Auto) 68.4 % 06/23/21 11:30 Lymph % (Auto) 18.2 % 06/23/21 11:30 [place] % (Auto) 9.0 % 06/23/21 11:30 Eos % (Auto) 3.1 % 06/23/21 11:30 Baso % (Auto) 0.7 % 06/23/21 11:30 Neut # (Auto) 7.29 10^3/uL (1.8-7.7) 06/23/21 11: Lymph # (Auto) 1.9 10^3/uL (0.8-4.8) 06/23/21 11:30 [place] # (Auto) 1.0 10^3/uL (0.2-0.9) H 06/23/21 11:30 Eos # (Auto) 0.3 10^3/uL (0.0-0.8) 06/23/21 11:30 Baso # (Auto) 0.1 10^3/uL (0.0-0.1) 06/23/21 11:30 Nucleated RBC % (auto) 0 % 06/23/21 11:30 Nucleated RBCs # 0.0 /100WBC 06/23/21 11:30 Specimen Type Arterial 06/23/21 13:20 Sample Site Brachial, right 06/23/21 13:20 ABG pH 7.23 (7.35-7.45) L 06/23/21 13:20 ABG pCO2 53.7 mmHg (35-45) H 06/23/21 13:20 ABG pO2 154.0 mmHg (80.0-100.0) H 06/23/21 13:20 ABG HCO3 22.3 mmol/L (22-26) 06/23/21 13:20 ABG O2 Saturation 99.5 06/23/21 13:20 ABG Base Excess -5.8 mmol/L (-2.0-2.0) L 06/23/21 13:20 [place] Test N/a 06/23/21 13:20 A-a O2 Gradient 4.7 mmHg (5-10) L 06/23/21 13:20 Hematocrit 42.3 % (42-52) 06/23/21 13:20 Hgb O2 Saturation 93.5 % (95-100) L 06/23/21 13:20 Carboxyhemoglobin 5.0 %THgb (0.4-20.1) 06/23/21 13:20 Methemoglobin 1.0 % (0.4-1.5) 06/23/21 13:20 Total Hemoglobin 13.8 g/dL (14-18) L 06/23/21 13:20 Sodium 140.0 mmol/L (131-143) 06/23/21 13:20 Potassium 5.3 mmol/L (3.5-5.0) H 06/23/21 13:20 Glucose 138.0 mg/dL (70-115) H 06/23/21 13:20 Ionized Calcium 1.2 mmol/L (1.1-1.4) 06/23/21 13:20 O2 Delivery Device Bipap 06/23/21 13:20 O2 Liters/Min 3.0 % 06/23/21 11:45 FiO2 36.0 % 06/23/21 13:20 Managing Editor ID Hinja 06/23/21 13:20 Sodium 134 mmol/L (136-145) L 06/23/21 11:30 Potassium 4.6 mmol/L (3.5-5.1) 06/23/21 11:30 Chloride 100 mmol/L (98-107) 06/23/21 11:30 Carbon Dioxide 21 mmol/L (22-29) L 06/23/21 11:30 Anion Gap 17.6 (5-19) 06/23/21 11:30 BUN 28 mg/dL (8-23) H 06/23/21 11:30 Creatinine 3.5 mg/dL (0.7-1.2) H 06/23/21 11:30 GFR Calculation 18.0 mL/min (90-130) L 06/23/21 11:30 Glucose 116 mg/dL (65-115) H 06/23/21 11:30 POC Glucose 117 mg/dL (70-110) H 06/23/21 11:19 Calculated Osmolality 284 mOsm/kg (285-295) L 06/23/21 11:30 Lactic Acid 1.3 mmol/L (0.5-2.2) 06/23/21 11:30 Calcium 9.0 mg/dL (8.5-10.5) 06/23/21 11:30 Total Bilirubin 0.3 mg/dL (0.15-1.2) 06/23/21 11:30 AST 26 U/L (0-40) 06/23/21 11:30 ALT 20 U/L (0-41) 06/23/21 11:30 Alkaline Phosphatase 120 IU/L (40-130) 06/23/21 11:30 Troponin T Gen 5 ng/L 30 ng/L (0-15) H 06/23/21 11:30 Total Protein 6.9 g/dL (6.6-8.7) 06/23/21 11: Albumin 4.0 g/dL (3.5-5.2) 06/23/21: Globulin 2.9 g/dL (1.3-4.6) 06/23/21: Procalcitonin 0.37 ng/mL (0-0.5) 06/23/21: TSH 1.83 uIU/mL (0.27-4.20) 06/23/21: Random Cortisol 24.79 ug/dL (2.47-19.5) H 06/23/21 11: Urine Color Yellow (Yellow) 06/23/21: Urine Appearance Clear (CLEAR) 06/23/21: Urine pH 5 (5-7) 06/23/21: Ur Specific [place] 1.030 (1.005-1.030) 06/23/21: Urine Protein Neg (Negative) 06/23/21: Urine Glucose (UA) Norm (Normal) 06/23/21: Urine Ketones Negative (Negative) 06/23/21: Urine Blood Neg (Negative) 06/23/21: Urine Nitrate Negative (Negative) 06/23/21: Urine Bilirubin 1+ (Negative) H 06/23/21: Urine Urobilinogen 1 mg/dL (Negative) H 06/23/21 11: Ur Leukocyte Esterase Trace (Negative) H 06/23/21 11: Urine RBC 0-4 /hpf (0-2) H 06/23/21 11: Urine WBC 0-4 /hpf (0-5) H 06/23/21 11:28 Ur Squamous Epith Cells 0-4 /hpf (0-5) H 06/23/21 11: Amorphous Sediment Not Reportable 06/23/21: Urine Bacteria Tr /hpf (NONE) 06/23/21: Salicylates < 0.3 mg/dL (3-10) L 06/23/21 11: Urine Opiates Screen Negative ng/mL (Negative) 06/23/21: Acetaminophen 8.0 ug/mL (10-30) L 06/23/21: Ur Barbiturates Screen Negative ng/mL (Negative) 05/11/22 11:28 Ur Phencyclidine Scrn Negative ng/mL (Negative) 06/23/21 11:28 Ur Amphetamines Screen Negative ng/mL (Negative) 06/23/21 11:28 U Benzodiazepines Scrn Positive ng/mL (Negative) H 06/23/21 11:28 Urine Cocaine Screen Negative ng/mL (Negative) 06/23/21 11:28 U Marijuana (THC) Screen Negative ng/mL (Negative) 06/23/21 11:28 Ethyl Alcohol < 10 mg/dL (0-10) 06/23/21 11:30 SARS-CoV-2 Ag (Rapid) Negative (Negative) 06/23/21 11:35 Discharge Plan Discharge Patient Disposition: Admitted As Inpatient Admit Provider: Parish Mcgill Clinical Impression: AUBREY (acute kidney injury), ETOH abuse, Aortic stenosis, Obesity, Hypotension, Acute encephalopathy, Sleep apnea, Altered mental status Condition: Stable Coding Level of Care Code ED Pivot End Polisher for Rom Gupta
[2021-06-23 11:50] LABS: Arterial Blood Gas Hematocrit 40.3 % (42-52); Base Excess ABG -5.2 mmol/L (-2.0-2.0); Blood Gas Allen Test Pos; Blood Gas Sample Site Radial, right; Blood Gas Sample Type Arterial; Carboxyhemoglobin 5.7 %THgb (0.4-20.1); HCO3 ABG 24.2 mmol/L (22-26); HGB O2 Sat 87.9 % (95-100); Methemoglobin 0.9 % (0.4-1.5); Oxygen Device NC; PO2 ABG 77.4 mmHg (80.0-100.0); Total Hemoglobin 13.2 g/dL (14-18)
[2021-06-23 11:52] LABS: ABG PCO2 64.2 mmHg (35-45); ABG PH Result 7.18 (7.35-7.45)
[2021-06-23 11:56] LABS: Basophils # 0.1 10^3/uL (0.0-0.1); Basophils % 0.7 %; Eosinophils # 0.3 10^3/uL (0.0-0.8); Eosinophils % 3.1 %; Hematocrit 43.1 % (42.0-52.0); Hemoglobin 13.4 g/dL (11.7-16.6); Lymphocytes # 1.9 10^3/uL (0.8-4.8); Lymphocytes % 18.2 %; Mean Corpuscular HGB Conc 31.1 g/dL (30.0-36.0); Mean Corpuscular Hemoglobin 32.1 pg (28.0-34.0); Mean Corpuscular Volume 103.4 fl (80-94); Mean Platelet Volume 9.2 fL (7.4-10.4); Neutrophils # 7.29 10^3/uL (1.8-7.7); Neutrophils % 68.4 %; Nucleated Red Blood Cells % 0 %; Platelet Count 250 10^3/cmm (130-400); Red Blood Count 4.17 10^6/uL (4.1-5.3); Red Cell Distribution Width 18.2 % (12.1-15.1); White Blood Count 10.7 10^3/uL (4.0-10.0)
--- NOTE | 2021-06-23 12:02 | PC.PHAR ---
pt unable to verify medications-medications entered are what [facility] have filled for the pt-some medications entered are from previous entered med list-rx last filled 12/16/2020 90d/s for hctz 25mg daily-notes are made in the pharmacy comments
[2021-06-23] MEDS: naloxone 0.4 mg/ml SDV 0.2 MG IVP ×3 (12:06→12:31)
[2021-06-23] MEDS: piperacillin-tazobactam 4.5 GM in sodium chloride 0.9% (plus) 50 ML IV (12:10)
[2021-06-23 12:13] LABS: Lactic Sepsis W/Reflex 1.3 mmol/L (0.5-2.2)
[2021-06-23 12:23] LABS: Troponin T (5th) Once 30 ng/L (0-15)
[2021-06-23 12:25] LABS: Alanine Aminotransferase 20 U/L (0-41); Alkaline Phosphatase 120 IU/L (40-130); Anion Gap 17.6 (5-19); Aspartate Amino Transferase 26 U/L (0-40); Blood Urea Nitrogen 28 mg/dL (8-23); Carbon Dioxide 21 mmol/L (22-29); Chloride 100 mmol/L (98-107); Globulin 2.9 g/dL (1.3-4.6); Glucose 116 mg/dL (65-115); Osmolality Calculated 284 mOsm/kg (285-295); Potassium 4.6 mmol/L (3.5-5.1); Sodium 134 mmol/L (136-145); Total Bilirubin 0.3 mg/dL (0.15-1.2); Total Protein 6.9 g/dL (6.6-8.7)
[2021-06-23 12:27] LABS: Salicylate < 0.3 mg/dL (3-10)
[2021-06-23 12:32] LABS: Procalcitonin 0.37 ng/mL (0-0.5)
[2021-06-23 12:36] LABS: Alcohol Level < 10 mg/dL (0-10)
[2021-06-23 12:41] LABS: Urine Appearance Clear (CLEAR); Urine Color Yellow (Yellow); pH Urine 5 (5-7)
[2021-06-23 12:42] LABS: Bilirubin Urine 1+ (Negative); Blood Urine Neg (Negative); Glucose Urine UA Norm (Normal); Ketones Urine Negative (Negative); Leukocyte Esterase Urine Trace (Negative); Nitrate Urine Negative (Negative); Protein Urine Neg (Negative); Urobilinogen Urine 1 mg/dL (Negative)
[2021-06-23 12:43] LABS: Add Urine Microscopic? YES
[2021-06-23 12:48] LABS: Add Urine Culture? No; Amphetamines Screen Urine Negative (Negative); Bacteria Urine TR /hpf; Barbiturates Screen Urine Negative (Negative); Benzodiazepines Screen Urine Positive (Negative); Cocaine Screen Urine Negative (Negative); Opiate Screen Urine Negative (Negative); PCP Screen Urine Negative (Negative); RBC Urine 0-4 /hpf (0-2); Squamous Epithelial Cell Urine 0-4 /hpf (0-5); THC Screen Urine Negative (Negative); WBC Urine 0-4 /hpf (0-5)
[2021-06-23 12:50] LABS: SARS Covid-2 Antigen Negative (Negative)
[2021-06-23] MEDS: ipratropium-albuterol 3 mL Neb INHALATION (13:08)
--- NOTE | 2021-06-23 13:14 | PC.NURSE ---
PT placed on continuous NIBP, SpO2, and CM
--- NOTE | 2021-06-23 13:16 | PC.NURSE ---
pt placed on vital sign monitoring with sepsis indicator.
[2021-06-23 13:29] LABS: ABG PCO2 53.7 mmHg (35-45); ABG PH Result 7.23 (7.35-7.45); Alveolar-Arterial Oxygen Gradi 4.7 mmHg (5-10); Arterial Blood Gas Hematocrit 42.3 % (42-52); Base Excess ABG -5.8 mmol/L (-2.0-2.0); Blood Gas Sample Site Brachial, right; Blood Gas Sample Type Arterial; HCO3 ABG 22.3 mmol/L (22-26); HGB O2 Sat 93.5 % (95-100); Ionized Calcium Level - ABG 1.2 mmol/L (1.1-1.4); Oxygen Device BIPAP; Oxygen Saturation ABG 99.5; Potassium Level - ABG 5.3 mmol/L (3.5-5.0); Total Hemoglobin 13.8 g/dL (14-18)
--- NOTE | 2021-06-23 14:10 | CT_ITS ---
WS: [id number] CT HEAD NONCONTRAST HISTORY: ams TECHNIQUE: Contiguous axial imaging performed through the brain in 2.5 mm imaging. Bone and soft tiss ue windows. Sagittal and coronal reformats reviewed. All CT scans at [facility] use at least one of these dose optimization techniques: automated exposure control; mA and/or kV adjustment per pa tient size (includes targeted exams where dose is matched to clinical indication); or iterative recon struction. DLP: 1565.21 mGy.cm COMPARISON: None available. No acute intracranial hemorrhage, midline shift or mass effect. No atrophy or prior infarcts or herniation. Ventricles: Normal size with no hydrocephalus. No inferior displacement of the cerebellar tonsils. Paranasal sinuses: Mucoperiosteal thickening in the maxillary and ethmoid air cells. Additional mucop eriosteal thickening and near complete opacification LEFT sphenoid sinus. Mastoid air cells: Well pneumatized. Calvarium and scalp: Skull is intact with no soft tissue edema or swelling. CT/CT head wo con* [id number] IMPRESSION: 1. No acute intracranial hemorrhage or edema. 2. Paranasal sinus disease. No air-fluid levels.
[2021-06-23 14:44] LABS: Cortisol Random 24.79 ug/dL (2.47-19.5)
--- NOTE | 2021-06-23 15:50 | PC.NURSE ---
PT was admitted to ICU at 1510 via bed on nasal cannula and was placed on bipap once in room. PT does not respond to any stimulation. Wounds on feet are documented in wound assessment. Top dentures were removed and placed by window.
[2021-06-23 16:31] LABS: Base Excess ABG -6.2 mmol/L (-2.0-2.0); Blood Gas Sample Site Brachial, right; Blood Gas Sample Type Arterial; HCO3 ABG 24.2 mmol/L (22-26); Oxygen Device BIPAP; PO2 ABG 70.8 mmHg (80.0-100.0)
[2021-06-23 16:37] LABS: ABG PCO2 70.6 mmHg (35-45); ABG PH Result 7.14 (7.35-7.45)
--- NOTE | 2021-06-23 16:56 | XRR_ITS ---
PROCEDURE INFORMATION: Exam: XR Chest Exam date and time: 06/23/2021 6:49 PM Age: 60 years old Clinical indication: Device placement; Ett placement (vent status); Patient HX: Cental line on RT; Additional info: Post-intubation TECHNIQUE: Imaging protocol: XR of the chest. Views: 1 view. COMPARISON: CR XR chest 1V portable [id number] 11/07/2020 10:53 AM FINDINGS: Tubes, catheters and devices: An ETT is present terminating 5.3 cm above the andres. A right IJ central venous catheter is in place, which terminates in the SVC. A nasogastric tube traverses the thorax (tip not imaged). Lungs: The lungs are clear. Pleural spaces: Unremarkable. No pleural effusion. No pneumothorax. Heart/Mediastinum: Unremarkable. No cardiomegaly. Bones/joints: Spinal fusion hardware is again seen in the cervicothoracic spine. Mild degenerative changes are seen in the thoracic spine. No acute fracture is visualized. XR/XR chest 1V portable [id number] IMPRESSION: No acute pulmonary abnormality. Life support line and tube placement as noted above.
--- NOTE | 2021-06-23 17:14 | PC.NURSE ---
Dr. Mcintosh and Dr. Lujan in room discussed intubation with family, all family agreed to intubate patient. 1719 50mcg of Fentanyl 20mg of etomidate 100mg of Rocc 1720 size 8 ET tube inserted by Dr. Mcintosh 24cm at lip 1722 Color change noted and bilateral breath sounds heard. V/S HR 77 O2 100 FIO2 100% on vent. BP 106/66, ETCO2 36, RR 16 at 1725. 1726 OG inserted
[2021-06-23] MEDS: rocuronium 10 mg/mL INJ 5mL IV (17:32)
[2021-06-23] MEDS: fentaNYL 50 mcg/mL INJ 2mL IVP (17:32)
[2021-06-23] MEDS: propofol 1,000 MG/100 ML INJ 12.33 MG IV (17:45)
--- NOTE | 2021-06-23 17:49 | US_ITS ---
NOTE: Report was unsigned for reason: Order was edited. Original Signature date and time was: 06/24/21 @ 0741 WS: [id number] RENAL ULTRASOUND URINARY BLADDER ULTRASOUND HISTORY: AUBREY COMPARISON: 01/26/2021. TECHNIQUE: 2-D and color Doppler imaging of the kidney submitted. Right kidney: 10.9 cm x 4.8 cm x 3.9 cm. Kidney remains normal size. There is increased echogenicity and diffuse thinning of the cortex with multiple cysts. These findings were previously described on 01/26/2021. The largest cyst in the lower pole measures 3.3 x 3.7 cm. No hydronephrosis. Left kidney: 15.7 cm x 6.8 cm x 5.1 cm. Kidney is enlarged as also seen on the prior examination. Mild increased echogenicity. Cortex is better preserved than on the RIGHT. There is a large cyst from the mid kidney measuring 8.3 x 6.5 cm. No hydronephrosis. Aorta: Normal. Urinary Bladder: Nondistended. Mukherjee catheter is present. [facility]US renal BI with PV bladder IMPRESSION: 1. Mild increased echogenicity and chronic medical renal disease and atrophy w ith cortical thinning RIGHT kidney. Multiple cysts. All stable findings since 1 03/29/2020. 2. Mildly enlarged LEFT kidney with a large simple cyst. Similar to the prior study.
--- NOTE | 2021-06-23 17:49 | USCV_ITS ---
Perry Norman Age: 60 Gender: M : 1960 Exam Date: 06/23/2021 21:22 Ordering Phys: Parish Mcgill MD Technologist: KALYAN Exam Location: [facility] [place] Indication: CHF/Ao Stenosis/Hypotension BP: 136 / 75 HR: 65 Rhythm: Sinus Technical Quality: Adequate MEASUREMENTS (Male / Female) Normal Values 2D ECHO LV Diastolic Diameter PLAX 5.1 cm 4.2 - 5.9 / 3.9 - 5.3 cm LV Systolic Diameter PLAX 4.3 cm IVS Diastolic Thickness 1.0 cm 0.6 - 1.0 / 0.6 - 0.9 cm IVS Systolic Thickness 1.5 cm LVPW Diastolic Thickness 1.5 cm 0.6 - 1.0 / 0.6 - 0.9 cm LVPW Systolic Thickness 1.4 cm LVOT Diameter 2.6 cm LV Ejection Fraction 2D Teich 32.5 % LV Ejection Fraction MOD 2C 59.6 % LV Ejection Fraction 2C AL 60.1 % LA Diameter 3.7 cm LA Width 3.4 cm LA Height 6.9 cm RA Width 4.6 cm RA Height 5.3 cm Aorta at Sinotubular Diameter 1.8 cm IVC Diameter 2.1 cm M-MODE Aortic Annulus Diameter 2.8 cm LA Ao Ratio MM 1.6 MV E Point Septal Separation 1.3 cm DOPPLER AV Peak Velocity 320.8 cm/s LVOT Peak Velocity 100.0 cm/s AV Area Cont Eq vti 2.0 cm squared AV Area Cont Eq pk 1.6 cm squared MV Peak Velocity 113.0 cm/s MV Area PHT 2.9 cm squared Mitral E to A Ratio 1.3 MV E' Velocity 59.0 cm/s Mitral E to MV E' Ratio 12.6 Mitral E to LV E' Lateral Ratio 12.5 Mitral E to LV E' Septal Ratio 12.9 TR Peak Velocity 205.8 cm/s TR Peak Gradient 16.9 mmHg TR Mean Velocity 161.1 cm/s TR Mean Gradient 14.6 mmHg TR Velocity Time Integral 58.0 cm Right Atrial Pressure 10.0 mmHg Pulmonary Artery Systolic Pressu 26.9 mmHg PV Peak Velocity 67.0 cm/s RV Acceleration Time 0.1 s RV Ejection Time 0.3 s RV AcT/ET 0.3 FINDINGS Left Ventricle Normal left ventricular size and systolic function, EF 66 %. Mild left ventricular hypertrophy. Right Ventricle The right ventricle is normal in size and function. Right Atrium The right atrium is normal in size. Left Atrium The left atrium is normal in size. Mitral Valve No gross abnormalities noted Aortic Valve Thickened aortic valve. Peak velocity of 3.2 m/s with a calculated valve area of 2.0 cm squire Tricuspid Valve Trace tricuspid valve regurgitation. Pulmonic Valve Pulmonic valve not well visualized. Pericardium Normal pericardium without effusion. Aorta Normal ascending aorta dimension. CONCLUSIONS Normal left ventricular size and systolic function, EF 66 %. Mild left ventricular hypertrophy. Mild aortic valve stenosis with a valve area of 2.0 cm2; peak velocity of 3.2 m/s. Trace tricuspid valve regurgita. There is no pericardial effusion. There are no intracardiac masses. Comparison with the previous study from 05/25/2020 is difficult due to the differences in the technical quality. The aortic valve stenosis appears to be less severe. Dr Harriet Ruth MD [facility] (Electronically Signed) Final Date: 24 Jun 2021 08:16 S
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
[2021-06-23 18:13] LABS: Thyroid Stimulating Hormone 1.83 uIU/mL (0.27-4.20)
--- NOTE | 2021-06-23 18:30 | ECG_ITS ---
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 Measurements Intervals Freedom Rate: 69 P: 69 UT: 199 QRS: 5 QRSD: 145 T: 7 QT: 441 QTc: 473 Interpretive Statements SINUS RHYTHM WITH OCCASIONAL VENTRICULAR PREMATURE COMPLEXES POSSIBLE LEFT ATRIAL ENLARGEMENT [-0.1mV P-WAVE IN V1/V2] LEFT BUNDLE BRANCH BLOCK [120+ ms QRS DURATION, 80+ ms Q/S IN V1/V2, 85+ ms R IN I/aVL/V5/V6] Compared to ECG 06/23/2021 11:31:23 Left bundle-branch block now present Intraventricular conduction delay no longer present Electronically Signed On 06-23-2021 22:45:24 CDT by Maye Boyd M.D. [email or web address]
[2021-06-23 18:40] LABS: Arterial Blood Gas Hematocrit 43.9 % (42-52); Base Excess ABG -6.8 mmol/L (-2.0-2.0); Blood Gas Sample Site Brachial, right; Blood Gas Sample Type Arterial; HCO3 ABG 22.7 mmol/L (22-26); Oxygen Device VENT
[2021-06-23 18:41] LABS: ABG PCO2 61.8 mmHg (35-45); ABG PH Result 7.17 (7.35-7.45)
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
--- NOTE | 2021-06-23 19:05 | PM.ACPR ---
Procedure/Consent Time out: Time Out Performed: Yes Consent: Additional Consent Information: Emergent; Procedure Narrative: Endotracheal Intubation Procedure Note Time of the procedure: 1700 Indication for endotracheal intubation: Acute hypoxic respiratory failure secondary to ARDS due to COVID-19 pneumonia Time of the procedure: 1145 Consent: There was not time to obtain consent. The patient was in immediate danger, and required the procedure emergently. However discussed with patient significant other at bedside as well as with patient's over phone and they are all in agreement for intubation Sedation: Fentanyl 50 mcg , Etomidate 20 mg Paralytic: Rocuronium 100 mg Equipment: Glidoscope blade 3 View: Grade 1 Cricoid Pressure: No Number of attempts: 1 ETT location confirmed by direct visulization, ET fogging, Capnometer, bilateral breath sounds, Chest x ray Ezio DatarMD Pulm/Critical Care Medicine Acute Procedures Epistaxis Control: Time out performed: Yes
--- NOTE | 2021-06-23 19:05 | PM.ACPR ---
Procedure/Consent Time out: Time Out Performed: Yes Procedure Narrative: Procedure time: 1730 Procedure: Ultrasound-guided identification of the right internal jugular vein and placement of Central venous line Indication: Multiple medications including paralytics; requiring pressors as patient is intubated Account Strategist(s): Ezio Tirador Consent: Emergent Yes Time out called. [place] precautions applied. Site: Right internal jugular Catheter:7 Fr 20cm, Triple Lumen Sutured at: 18 cm Anesthesia: 5 cc 1% lidocaine without epinephrine Description: Cap, eye protection, mask donned by myself and RN. Patient head down below feet (Trendelenburg 10 degrees). Sterile gown and gloves donned. Time out patient prepped with Chlorhexidine and full body fenestrated drape placed in sterile fashion. The vessel anatomy and patency was examined by ultrasound probe which was covered with sterile probe cover. Real time US guidance for target selection and real time US visualization of needle entry into vessel, after venous blood aspirated the guidewire was inserted through the needle and kept in situ, no ectopy, needle was removed. Placement of guidewire in the vein confirmed in relation to the adjacent artery in both in-plane and [id number] US views. After appropriate dilation of entry site with dilator, removed dilator and Catheter was then advanced over the guidewire, no ectopy and guidewire was successfully removed. All ports drawn back and flushed with ease. Ports capped and locked. Catheter sutured at [address] Sterile dressing applied and chlorhexidine patch placed. Patient tolerated procedure well. Number of attempts:1 Dilator applied: 1, number of Dilations: 1 Placement Verified by: Blood draw from all ports and Ultrasound exam and Chest Xray EBL: 5-10 cc Complications: None Ultrasound guidance used: Yes. Acute Procedures Epistaxis Control: Time out performed: Yes
[2021-06-23] MEDS: FUROsemide 10 mg/mL SDV 10mL 60 MG IVP (19:11)
[2021-06-23] MEDS: pantoprazole 40 mg SDV IVP (19:11)
[2021-06-23] MEDS: hydrocortisone 100 mg/2 mL SDV IVP (19:12)
[2021-06-23] MEDS: heparin 5,000 unit/mL INJ 1 mL 5000 UNIT SUBCUT (19:12)
--- NOTE | 2021-06-23 19:30 | PC.NURSE ---
Placed Solange hugger on patient due to low temp. Will continue to monitor.
--- NOTE | 2021-06-23 19:32 | PC.NURSE ---
Central line attempted to be placed on left neck without success by Dr. Mcintosh.
[2021-06-23] MEDS: piperacillin-tazobactam 3.375 GM in sodium chloride 0.9% (plus) 50 ML IV (20:06)
[2021-06-23] MEDS: gabapentin 300 mg Capsule OG-TUBE (21:13)
[2021-06-23 21:21] LABS: Troponin T (5th) Once 22 ng/L (0-15)
[2021-06-23] MEDS: pramipexole 0.25 mg Tablet 0.125 MG OG-TUBE (22:30)
[2021-06-23] MEDS: propofol 1,000 MG/100 ML INJ 24.66 MG IV (23:07)
[2021-06-24] VITALS (258 sets, daily range): BP systolic 77–165; BP diastolic 48–100; PULSE 64–110; RESP 18–20; TEMP 36.4–37; O2SAT 89–99
--- NOTE | 2021-06-24 02:00 | PC.NURSE ---
Solange hugger turned off due to appropriate temperature. Will continue to monitor.
[2021-06-24] MEDS: propofol 1,000 MG/100 ML INJ 24.66 MG IV ×3 (02:30→13:51)
[2021-06-24 03:31] LABS: Basophils # 0.1 10^3/uL (0.0-0.1); Basophils % 0.6 %; Eosinophils # 0.2 10^3/uL (0.0-0.8); Eosinophils % 1.5 %; Hematocrit 42.6 % (42.0-52.0); Hemoglobin 13.5 g/dL (11.7-16.6); Lymphocytes # 1.6 10^3/uL (0.8-4.8); Lymphocytes % 15.3 %; Mean Corpuscular HGB Conc 31.7 g/dL (30.0-36.0); Mean Corpuscular Hemoglobin 32.9 pg (28.0-34.0); Mean Corpuscular Volume 103.9 fl (80-94); Monocytes # 0.8 10^3/uL (0.2-0.9); Monocytes % 7.5 %; Neutrophils # 7.68 10^3/uL (1.8-7.7); Neutrophils % 74.5 %; Nucleated Red Blood Cells % 0 %; Platelet Count 268 10^3/cmm (130-400); Red Cell Distribution Width 18.6 % (12.1-15.1); White Blood Count 10.3 10^3/uL (4.0-10.0)
[2021-06-24 03:55] LABS: Alanine Aminotransferase 17 U/L (0-41); Albumin Level 3.8 g/dL (3.5-5.2); Alkaline Phosphatase 116 IU/L (40-130); Anion Gap 17.7 (5-19); Aspartate Amino Transferase 20 U/L (0-40); Blood Urea Nitrogen 32 mg/dL (8-23); Calcium 8.5 mg/dL (8.5-10.5); Carbon Dioxide 23 mmol/L (22-29); Chloride 101 mmol/L (98-107); Globulin 3.1 g/dL (1.3-4.6); Glomerular Filtration Rate 19.9 mL/min (90-130); Glucose 138 mg/dL (65-115); Osmolality Calculated 293 mOsm/kg (285-295); Potassium 4.7 mmol/L (3.5-5.1); Sodium 137 mmol/L (136-145); Total Bilirubin 0.3 mg/dL (0.15-1.2); Total Protein 6.9 g/dL (6.6-8.7)
[2021-06-24] MEDS: piperacillin-tazobactam 3.375 GM in sodium chloride 0.9% (plus) 50 ML IV ×3 (05:01→19:21)
[2021-06-24] MEDS: heparin 5,000 unit/mL INJ 1 mL 5000 UNIT SUBCUT ×2 (05:02→16:50)
[2021-06-24 05:19] LABS: ABG PCO2 44.6 mmHg (35-45); ABG PH Result 7.32 (7.35-7.45); Arterial Blood Gas Hematocrit 42.8 % (42-52); Base Excess ABG -3.4 mmol/L (-2.0-2.0); Blood Gas Allen Test Pos; Blood Gas Operator Identificat JB; Blood Gas Sample Site Radial, right; Blood Gas Sample Type Arterial; Blood Gas Tidal Volume 0.55; HCO3 ABG 22.8 mmol/L (22-26); Oxygen Device VENT; PO2 ABG 93.4 mmHg (80.0-100.0)
--- NOTE | 2021-06-24 06:00 | XRR_ITS ---
PROCEDURE INFORMATION: Exam: XR Chest Exam date and time: 06/24/2021 4:42 AM Age: 60 years old Clinical indication: Other: Hypoxia; Prior surgery; Surgery type: Coronary stent. Cervical fusion. ; Patient HX: F/u for resp. Failure and hypotension. Intubated. History of chf and copd. TECHNIQUE: Imaging protocol: XR of the chest. Views: 1 view. COMPARISON: CR (CHEST, ) 06/23/2021 6:49 PM FINDINGS: Tubes, catheters and devices: There is an endotracheal tube present with the tip at the level of the clavicular heads. There is an enteric tube extending down toward the stomach and off the image. There is a right jugular central line with the tip in the superior vena cava. Surgical clips project over the left mediastinum. Lungs: No focal peripheral lung consolidation, air bronchogram formation, or silhouette sign. Pleural spaces: Small left pleural effusion. No right pleural effusion. No pneumothorax. Heart/Mediastinum: The cardiac silhouette is enlarged. The mediastinal contours are normal. Bones/joints: Prior surgical fusion in the lower cervical spine and upper thoracic spine. There is diffuse idiopathic skeletal hyperostosis. XR/XR chest 1V portable [id number] IMPRESSION: 1. Small left pleural effusion. 2. Cardiomegaly.
[2021-06-24] MEDS: PHENobarbital 130 mg/mL SDV 1 mL IV (08:00)
[2021-06-24] MEDS: ipratropium-albuterol 3 mL Neb INHALATION ×3 (08:11→15:07)
[2021-06-24] MEDS: gabapentin 300 mg Capsule OG-TUBE ×4 (09:14→20:36)
[2021-06-24] MEDS: thiamine 100 mg Tablet PO (09:14)
[2021-06-24] MEDS: folic acid 1 mg Tablet PO (09:14)
[2021-06-24] MEDS: multivitamin therapeutic Tablet 1 TAB PO (09:16)
[2021-06-24] MEDS: FUROsemide 10 mg/mL SDV 10mL 60 MG IVP (09:16)
[2021-06-24] MEDS: fluoxetine 20 mg Capsule 60 MG OG-TUBE (09:16)
[2021-06-24] MEDS: propofol 1,000 MG/100 ML INJ 28.77 MG IV (10:42)
[2021-06-24] MEDS: norepinephrine 8 MG in dextrose 5 % 500 ML 19.05 MG IV (14:05)
[2021-06-24] MEDS: silver sulfadiazine cream 1% 50 gm 1 APPLIC TOPICAL (15:16)
--- NOTE | 2021-06-24 16:49 | PM.PN ---
Subjective Subjective: -Overnight patient is uneventful except for significant diaphoresis -Otherwise vitals are stable -ABG improved to 7.3 and patient requiring 50% FiO2 -Other labs and imaging reviewed -Plan is to on fentanyl and propofol awakening trial today proceed with weaning trial Vitals/I&O/Wt Last Vital Signs Temp 98.6 F 06/24/21 12:15 Pulse 94 06/24/21 16:10 Resp 18 06/24/21 15:10 BP 165/100 06/24/21 16:10 Pulse Ox 99 06/24/21 16:10 06/24/21 06/24/21 06/24/21 06:59 14:59 22:59 Intake Total 454.921 / 587.598 528.843 / 528.843 98.087 / 626.930 Output Total 1300 / 1300 700 / 700 Balance -845.079 / -712.402 -171.157 / -171.157 98.087 / -73.070 Weight last 48 hrs Weight 296 lb Weight 302 lb 0.533 oz Physical Exam Narrative: PHYSICAL EXAM: General: lying in bed, sedated and intubated. HEENT:NCAT, PERRLA, EOMI Neck: Supple Lungs: Overall reduced breath sounds, bilateral end expiratory wheeze in left upper lung zone improved compared to yesterday Heart: s1/s2, RRR Abd: soft, NT, ND, BS + Normoactive Extremities: No edema RIG BUILDER: sedated and limited RIG BUILDER exam possible. SKIN: poorly healing ulcerations of both feet, pressure ulcers on right plantar foot, left plantar great toe, second toe, and left lateral plantar foot, LDA: # CVC: Right internal jugular 06/23/2021 # Mukherjee: 05/24/2021 Urinary Catheter Management: Mukherjee: Cath Placed During This Visit: yes Reason for Continuing Indwelling Catheter: Accurate Measurement of Urinary Output in Critically Ill Patients Urinary Catheter Date of Insertion: 06/23/21 Urinary Catheter Time of Insertion: 11:55 Data : 06/24/21 03:03 06/24/21 03:03 Other Labs: Radiology Impressions Head CT 06/23/21 14:10 IMPRESSION: 1. No acute intracranial hemorrhage or edema. 2. Paranasal sinus disease. No air-fluid levels. Renal Ultrasound 06/23/21 17:49 IMPRESSION: 1. Mild increased echogenicity and chronic medical renal disease and atrophy with cortical thinning RIGHT kidney. Multiple cysts. All stable findings since 01/26/2021. 2. Mildly enlarged LEFT kidney with a large simple cyst. Similar to the prior study. Chest X-Ray 06/24/21 06:00 IMPRESSION: 1. Small left pleural effusion. 2. Cardiomegaly. Laboratory Results WBC 10.3 10^3/uL (4.0-10.0) H 06/24/21 03:03 RBC 4.10 10^6/uL (4.1-5.3) 06/24/21 03:03 Hgb 13.5 g/dL (11.7-16.6) 06/24/21 03:03 Hct 42.6 % (42.0-52.0) 06/24/21 03:03 MCV 103.9 fl (80-94) H 06/24/21 03:03 MCH 32.9 pg (28.0-34.0) 06/24/21 03:03 MCHC 31.7 g/dL (30.0-36.0) 06/24/21 03:03 RDW 18.6 % (12.1-15.1) H 06/24/21 03:03 Plt Count 268 10^3/cmm (130-400) 06/24/21 03:03 MPV 9.0 fL (7.4-10.4) 06/24/21 03:03 Neut % (Auto) 74.5 % 06/24/21 03:03 Lymph % (Auto) 15.3 % 06/24/21 03:03 Fannin % (Auto) 7.5 % 06/24/21 03:03 Eos % (Auto) 1.5 % 06/24/21 03:03 Baso % (Auto) 0.6 % 06/24/21 03:03 Neut # (Auto) 7.68 10^3/uL (1.8-7.7) 06/24/21 03:03 Lymph # (Auto) 1.6 10^3/uL (0.8-4.8) 06/24/21 03:03 Fannin # (Auto) 0.8 10^3/uL (0.2-0.9) 06/24/21 03:03 Eos # (Auto) 0.2 10^3/uL (0.0-0.8) 06/24/21 03:03 Baso # (Auto) 0.1 10^3/uL (0.0-0.1) 06/24/21 03:03 Nucleated RBC % (auto) 0 % 06/24/21 03:03 Nucleated RBCs # 0.0 /100WBC 06/24/21 03:03 Specimen Type Arterial 06/24/21 05:05 Sample Site Radial, right 06/24/21 05:05 ABG pH 7.32 (7.35-7.45) L 06/24/21 05:05 ABG pCO2 44.6 mmHg (35-45) 06/24/21 05:05 ABG pO2 93.4 mmHg (80.0-100.0) 06/24/21 05:05 ABG HCO3 22.8 mmol/L (22-26) 06/24/21 05:05 ABG O2 Saturation 99.5 06/23/21 13:20 ABG Base Excess -3.4 mmol/L (-2.0-2.0) L 06/24/21 05:05 Augustine Test Pos 06/24/21 05:05 A-a O2 Gradient 4.7 mmHg (5-10) L 06/23/21 13:20 Hematocrit 42.8 % (42-52) 06/24/21 05:05 Hgb O2 Saturation 93.5 % (95-100) L 06/23/21 13:20 Carboxyhemoglobin 5.0 %THgb (0.4-20.1) 06/23/21 13:20 Methemoglobin 1.0 % (0.4-1.5) 06/23/21 13:20 Total Hemoglobin 13.8 g/dL (14-18) L 06/23/21 13:20 Sodium 140.0 mmol/L (131-143) 06/23/21 13:20 Potassium 5.3 mmol/L (3.5-5.0) H 06/23/21 13:20 Glucose 138.0 mg/dL (70-115) H 06/23/21 13:20 Ionized Calcium 1.2 mmol/L (1.1-1.4) 06/23/21 13:20 O2 Delivery Device Vent 06/24/21 05:05 O2 Liters/Min 3.0 % 06/23/21 11:45 FiO2 50.0 % 06/24/21 05:05 Tidal Volume 0.55 06/24/21 05:05 PEEP 12.0 cmH20 06/24/21 05:05 Resin Coater ID Albino 06/24/21 05:05 Sodium 137 mmol/L (136-145) 06/24/21 03:03 Potassium 4.7 mmol/L (3.5-5.1) 06/24/21 03:03 Chloride 101 mmol/L (98-107) 06/24/21 03:03 Carbon Dioxide 23 mmol/L (22-29) 06/24/21 03:03 Anion Gap 17.7 (5-19) 06/24/21 03:03 BUN 32 mg/dL (8-23) H 06/24/21 03:03 Creatinine 3.2 mg/dL (0.7-1.2) H 06/24/21 03:03 GFR Calculation 19.9 mL/min (90-130) L 06/24/21 03:03 Glucose 138 mg/dL (65-115) H 06/24/21 03:03 POC Glucose 117 mg/dL (70-110) H 06/23/21 11:19 Calculated Osmolality 293 mOsm/kg (285-295) 06/24/21 03:03 Lactic Acid 1.3 mmol/L (0.5-2.2) 06/23/21 11:30 Calcium 8.5 mg/dL (8.5-10.5) 06/24/21 03:03 Total Bilirubin 0.3 mg/dL (0.15-1.2) 06/24/21 03:03 AST 20 U/L (0-40) 06/24/21 03:03 ALT 17 U/L (0-41) 06/24/21 03:03 Alkaline Phosphatase 116 IU/L (40-130) 06/24/21 03:03 Troponin T Gen 5 ng/L 22 ng/L (0-15) H 06/23/21 20:51 Total Protein 6.9 g/dL (6.6-8.7) 06/24/21 03:03 Albumin 3.8 g/dL (3.5-5.2) 06/24/21 03:03 Globulin 3.1 g/dL (1.3-4.6) 06/24/21 03:03 Procalcitonin 0.37 ng/mL (0-0.5) 06/23/21 11: TSH 1.83 uIU/mL (0.27-4.20) 06/23/21 11: Random Cortisol 24.79 ug/dL (2.47-19.5) H 06/23/21 11: Urine Color Yellow (Yellow) 06/23/21: Urine Appearance Clear (CLEAR) 06/23/21 11: Urine pH 5 (5-7) 06/23/21: Ur Specific [place] 1.030 (1.005-1.030) 06/23/21: Urine Protein Neg (Negative) 06/23/21: Urine Glucose (UA) Norm (Normal) 06/23/21: Urine Ketones Negative (Negative) 06/23/21: Urine Blood Neg (Negative) 06/23/21: Urine Nitrate Negative (Negative) 06/23/21 11: Urine Bilirubin 1+ (Negative) H 06/23/21 11: Urine Urobilinogen 1 mg/dL (Negative) H 06/23/21 11: Ur Leukocyte Esterase Trace (Negative) H 06/23/21 11: Urine RBC 0-4 /hpf (0-2) H 06/23/21 11: Urine WBC 0-4 /hpf (0-5) H 06/23/21 11: Ur Squamous Epith Cells 0-4 /hpf (0-5) H 06/23/21: Amorphous Sediment Not Reportable 06/23/21 11: Urine Bacteria Tr /hpf (NONE) 06/23/21 11: Salicylates < 0.3 mg/dL (3-10) L 06/23/21 11:30 Urine Opiates Screen Negative ng/mL (Negative) 06/23/21: Acetaminophen 8.0 ug/mL (10-30) L 06/23/21 11: Ur Barbiturates Screen Negative ng/mL (Negative) 06/23/21: Ur Phencyclidine Scrn Negative ng/mL (Negative) 06/23/21: Ur Amphetamines Screen Negative ng/mL (Negative) 05/11/22 11:28 U Benzodiazepines Scrn Positive ng/mL (Negative) H 06/23/21 11:28 Urine Cocaine Screen Negative ng/mL (Negative) 06/23/21 11:28 U Marijuana (THC) Screen Negative ng/mL (Negative) 06/23/21 11:28 Ethyl Alcohol < 10 mg/dL (0-10) 06/23/21 11:30 SARS-CoV-2 Ag (Rapid) Negative (Negative) 06/23/21 11:35 Micro: Microbiology 06/23/21 12:37 Blood Culture - Preliminary Blood NEGATIVE TO DATE 06/23/21 11:30 Blood Culture - Preliminary Blood NEGATIVE TO DATE 06/23/21 11:52 Urine Culture - Preliminary Urine Catheterized A&P Assessment and plan (1) Respiratory failure with hypoxia and hypercapnia: Status: Acute (2) AUBREY (acute kidney injury): Status: Acute (3) Altered mental status: Status: Acute (4) Pressure ulcers of skin of multiple topographic sites: Status: Acute (5) COPD (chronic obstructive pulmonary disease): Status: Acute (6) Aortic stenosis: Status: Acute (7) Sleep apnea: Status: Acute (8) Obesity: Status: Acute (9) ETOH abuse: Status: Acute (10) CO2 narcosis: Status: Acute Plan #Altered mental status-CO2 narcosis #Acute on chronic hypercapnic respiratory failure secondary to COPD exacerbation/CHF exacerbation/MARY ANN/obesity hypoventilation syndrome/drug-induced hypoventilation -Day 2 : Intubated ventilated-on CMV 550/18/12/50% ABG 7.3 2/44//22/95% recommended to taper down FiO2 -Patient ABG is acceptable-a low-dose fentanyl and gradually coming down propofol'-Did not tolerate spontaneous as he was still drowsy-tolerating MMV with 30% FiO2 -recommended to taper off propofol completely -Informed RN to discontinue all feedings/sedation by morning 4 AM-and proceed with breathing trial -Recommended scheduled DuoNeb nebulizations and IV methylprednisone 40 mg daily and taper based on clinical response -Chest x-ray did not show any acute pulmonary abnormality -Requested for MRSA in nares and TTA culture -On Zosyn- until final cultures-given wounds on bilateral great toes; recommended dressing for wounds #History of moderate stenosis on echo -Repeat echo-aortic stenosis appeared less severe compared to May 2020; normal LV size and systolic function ejection fraction 66% -Patient is making good urine output with Lasix 60 Mg daily -Does not appear to be volume overload #AUBREY, creatinine up to 3.5, superimposed on CKD 3, but last creatinine 1.2 mid May.? Ranging 1.2-1.7. -Very good urine -Suspect prerenal due to sepsis versus cardiorenal -Monitor input output and electrolytes -Lasix 60 mg daily #Alcohol abuse for several years -Drinks 10-30 fireball shots for several years -Monitor for signs and symptoms of control -Had profuse diaphoresis yesterday overnight-received 1 dose of phenobarb -If there is any signs or symptoms of withdrawal -follow CIWA protocol and can give ativan 2 mg ivp - FA/Thiamine/FA Problem list updated Verbal orders reviewed and signed Analgesia: fentanyl Glycemic Control:not required Nutrition: JVP Restraint Renewal (within 24 hrs): yes Ulcer Prophylaxis: {Ulcer prophylaxis:35011}: PPI Chemical Thromboprophylaxis: Prophylaxis:Heparin Need for Central line: for pressors Need for Mukherjee catheter: for input/output monitoring Critical Care Time (No Overlap): 90 min This patient has a high probability of sudden, clinically significant deterioration, which requires the highest level of physician preparedness to intervene urgently. I managed/supervised life or organ supporting interventions that required frequent physician assessment. I devoted my full attention in the ICU to the direct care of this patient for the period of time indicated above. Time I spent with family or surrogate(s) is included only if the patient was incapable of providing necessary information or participating in decision making. Time devoted to teaching and to any procedures I billed separately is not included. Services Provided: Telemetry review Mechanical Ventilation Hemodynamic interpretation, assessment and management Review and interpretation of CXR Review and interpretation of lab values Review and interpretation of microbiologic data and culture results Review of medications and administration Review and interpretation of Nutrition requirements and management Discussion of management with other consultants and services Clinical update to family members Attestations Medical Necessity Statement*: Acute on chronic hypercapnic respiratory failure requiring mechanical intubation with close ICU monitoring Time Spent in Patient Care: Greater than 35 minutes (>than 50% of time spent in counselling and/or direct pt care on unit). Critical Care Time: The high probability of a clinically significant, sudden or life threatening deterioration of the patient's [pulmonary, renal, cardiac] system(s) required my full and direct attention, intervention and personal management. The critical care time is as shown. 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
[2021-06-24] MEDS: pantoprazole 40 mg SDV IVP (16:51)
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
[2021-06-24] MEDS: pramipexole 0.25 mg Tablet 0.125 MG OG-TUBE (20:35)
[2021-06-24] MEDS: doxycycline 100 MG in sodium chloride 0.9% (plus) 100 ML IV (20:51)
[2021-06-24] MEDS: propofol 1,000 MG/100 ML INJ 8.22 MG IV (22:46)
[2021-06-25] VITALS (96 sets, daily range): BP systolic 88–130; BP diastolic 61–93; PULSE 65–112; RESP 14–29; TEMP 36.6–37; O2SAT 88–100
[2021-06-25] MEDS: ipratropium-albuterol 3 mL Neb INHALATION ×3 (00:25→15:15)
--- NOTE | 2021-06-25 04:00 | PC.NURSE ---
Patient is begining to continually wake up and becoming somewhat violent where previously was able to easily redirect. Now is aggressively trying extubate. Will increase sedation to protect airway.
[2021-06-25] MEDS: heparin 5,000 unit/mL INJ 1 mL 5000 UNIT SUBCUT ×2 (04:31→18:05)
[2021-06-25] MEDS: piperacillin-tazobactam 3.375 GM in sodium chloride 0.9% (plus) 50 ML IV ×3 (04:31→20:22)
[2021-06-25 04:54] LABS: Basophils % 0.5 %; Hemoglobin 13.7 g/dL (11.7-16.6); Lymphocytes # 1.3 10^3/uL (0.8-4.8); Lymphocytes % 14.6 %; Mean Corpuscular HGB Conc 31.9 g/dL (30.0-36.0); Mean Corpuscular Hemoglobin 32.9 pg (28.0-34.0); Mean Corpuscular Volume 103.4 fl (80-94); Mean Platelet Volume 9.3 fL (7.4-10.4); Monocytes # 0.4 10^3/uL (0.2-0.9); Neutrophils # 6.96 10^3/uL (1.8-7.7); Neutrophils % 79.2 %; Nucleated Red Blood Cells % 0 %; Platelet Count 247 10^3/cmm (130-400); Red Blood Count 4.16 10^6/uL (4.1-5.3); Red Cell Distribution Width 18.7 % (12.1-15.1); White Blood Count 8.8 10^3/uL (4.0-10.0)
[2021-06-25 05:22] LABS: Alanine Aminotransferase 21 U/L (0-41); Albumin Level 3.9 g/dL (3.5-5.2); Alkaline Phosphatase 110 IU/L (40-130); Anion Gap 15.1 (5-19); Aspartate Amino Transferase 48 U/L (0-40); Blood Urea Nitrogen 34 mg/dL (8-23); Carbon Dioxide 25 mmol/L (22-29); Chloride 104 mmol/L (98-107); Globulin 3.2 g/dL (1.3-4.6); Glomerular Filtration Rate 30.7 mL/min (90-130); Glucose 108 mg/dL (65-115); Osmolality Calculated 296 mOsm/kg (285-295); Potassium 5.1 mmol/L (3.5-5.1); Sodium 139 mmol/L (136-145); Total Bilirubin 0.4 mg/dL (0.15-1.2); Total Protein 7.1 g/dL (6.6-8.7)
[2021-06-25] MEDS: propofol 1,000 MG/100 ML INJ 41.1 MG IV ×3 (05:27→11:25)
[2021-06-25 06:37] LABS: ABG PCO2 45.2 mmHg (35-45); ABG PH Result 7.37 (7.35-7.45); Arterial Blood Gas Hematocrit 42.7 % (42-52); Blood Gas Allen Test Pos; Blood Gas Operator Identificat Anonymous; Blood Gas Sample Site Radial, right; Blood Gas Sample Type Arterial; Blood Gas Tidal Volume 0.55; Carboxyhemoglobin 1.3 %THgb (0.4-20.1); HCO3 ABG 25.8 mmol/L (22-26); HGB O2 Sat 90.9 % (95-100); Ionized Calcium Level - ABG 1.2 mmol/L (1.1-1.4); Methemoglobin 0.9 % (0.4-1.5); Oxygen Device VENT; PO2 ABG 65.1 mmHg (80.0-100.0); Total Hemoglobin 13.9 g/dL (14-18)
--- NOTE | 2021-06-25 06:55 | PC.NURSE ---
Addendum entered by Rand Roberts RN 06/25/21 09:06: Clarification of sedation: Propfol at 50mcg/kg/min only. Versed and fentanyl gtt still hanging in room but not infusing. Original Note: Bedside report completed with GONZALEZ Serarno. SCDs not present at this time. Pt's sedation increased at night due to aggressive behaviors.
--- NOTE | 2021-06-25 08:04 | PC.NURSE ---
CIWA: SCore inaccurate due t pt being intubated and sedated, there fore unable to respond to questions appropriately.
--- NOTE | 2021-06-25 08:18 | PC.NURSE ---
Jenna [facility], Agnieszka Live form Medical records called for admission date, time and admission diagnosis
[2021-06-25] MEDS: multivitamin therapeutic Tablet 1 TAB PO (08:46)
[2021-06-25] MEDS: fluoxetine 20 mg Capsule 60 MG OG-TUBE (08:46)
[2021-06-25] MEDS: folic acid 1 mg Tablet PO (08:46)
[2021-06-25] MEDS: thiamine 100 mg Tablet PO (08:46)
[2021-06-25] MEDS: gabapentin 300 mg Capsule OG-TUBE ×4 (08:46→20:24)
[2021-06-25] MEDS: doxycycline 100 MG in sodium chloride 0.9% (plus) 100 ML IV ×2 (08:47→20:23)
[2021-06-25] MEDS: FUROsemide 10 mg/mL SDV 10mL 60 MG IVP (08:47)
[2021-06-25] MEDS: silver sulfadiazine cream 1% 50 gm 1 APPLIC TOPICAL (08:52)
--- NOTE | 2021-06-25 10:11 | PC.CHAP ---
Pastoral Care Encounter/Spiritual Assessment Type of Contact [] Declined import and export clerk visit [] Patient/Family/Request visit [] Outpatient visit [] Follow-up visit [] Physician referral [] Code/Alert [x] Routine visit [] Staff referral [] Actively dying [] Patient sleeping [] Family support [] [] Out of room [] Palliative care [] [] Receiving care in room [] Pre-surgical visit [] Trauma [] Long length of stay [x] ICU visit [] Other: Relational/Emotional Strength [] Patient feels connected with others/family/visitors/staff [] Distress [] Loneliness/isolation [] Abandonment Spirituality of Patient [] Person of Antonia [] Attends Restorationist of their Antonia [] Believes in Prayer [] Reads Bible or Alevism materials [] There are Spiritual issues to be addressed Appliance 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 And 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 Interventions [x] Prayer [x] Active listening [x] Non-anxious presence [x] Spiritual/emotional support [] Crisis/trauma care [] Spiritual counseling [] Bereavement support [] Provided bereavement packet [] Provided Bible/devotional materials [] Provided toy/stuffed animal, coloring book to patient or family member [] Provided Communion [] Anointing/[place] [] Salvation [x] Completed spiritual assessment [] Other: Impact on Illness or Injury [] Angry [] Fearful [] Anxious [] Often cries [] Exhaustion [] Unable to work [] Unable to attend mandaen [] Unable to walk/stand [] Unable to read [] Unable to drive [] Unable to eat/drink [] Unable to sleep [] Unable to be with family [] Patient intubated [] Other: Summary Time spent with patient
--- NOTE | 2021-06-25 10:36 | PC.NURSE ---
Nicole Norman called for update on pt. Updated her on progress, plan of care, possible exutbation and probable medication changes. She verbalized understanding.
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
[2021-06-25] MEDS: dexmedeTOMIDine 0.9 % NaCL 400 MCG/100 ML PREMIX IV (14:14)
[2021-06-25] MEDS: chlordiazePOXIDE 25 mg Capsule 50 MG PO ×2 (14:14→14:19)
--- NOTE | 2021-06-25 14:50 | PC.NURSE ---
Fentanyl gtt and Versed gtt wasted, see MAR for amount Witnessed by Valerie Jones, RN
--- NOTE | 2021-06-25 14:51 | PC.NUTR ---
TF consult received. Recommend Jevity 1.2 @ 20 mls/hr increasing 10 mls/hr Q8H as tolerated until goal rate of 70 mls/hr is reached with 100 mls flushes Q4H. If possible, add 1 scoop beneprotein powder to flushes for additional protein. Will revise goal rate if Propofol continues at high rate because of additional calories. See RD assessment for details.
--- NOTE | 2021-06-25 15:14 | PC.NURSE ---
Propofol weaned off as Precedex increased to 0.3mcg/kg/hr One time Librium has been admin. Pt more alert and following commands now. Pt's affect pleasant no aggression noted. Dr Mcgill notified. Preparing to extubate.
--- NOTE | 2021-06-25 15:30 | PC.NURSE ---
Pt extubated to 4lpm/N. OG removed. Pt smiling and oriented to place and self.
[2021-06-25] MEDS: pantoprazole 40 mg SDV IVP (18:05)
--- NOTE | 2021-06-25 19:06 | PC.NURSE ---
Bedside report completed with GONZALEZ Serrano
--- NOTE | 2021-06-25 19:06 | PC.NURSE ---
Shift summary: Pt rested in bed sedated and intubated until about 1500. Sedation changed: Propofol stopped and Precedex started. Librium given once per OG. Pt extubated and has remained on 4 lpm/NC. Pt stated his behind was getting very sore, assisted to hair at bedside with 2 assist. Pt shuffled his feet some and tried to put most of his weight on his heels away from his foot ulcers. No redness or wounds noted on his bottom. Precedex remains at 0.3 mcg/kg/hr. Pt visiting with family. He is able to swallow jello and fluids without difficulty. Pt does wear hearing aid in left ear, to communicate he does better when he can read lips also.
[2021-06-25] MEDS: pramipexole 0.25 mg Tablet 0.125 MG OG-TUBE (20:24)
[2021-06-25] MEDS: dexmedeTOMIDine 0.9 % NaCL 400 MCG/100 ML PREMIX 9.97 MCG IV (23:17)
[2021-06-26] VITALS (28 sets, daily range): BP systolic 114–166; BP diastolic 60–93; PULSE 58–104; RESP 15–24; TEMP 36.1–37.2; O2SAT 89–98
[2021-06-26] MEDS: ipratropium-albuterol 3 mL Neb INHALATION ×4 (00:30→23:19)
[2021-06-26] MEDS: heparin 5,000 unit/mL INJ 1 mL 5000 UNIT SUBCUT ×2 (05:02→17:58)
[2021-06-26] MEDS: piperacillin-tazobactam 3.375 GM in sodium chloride 0.9% (plus) 50 ML IV ×3 (05:02→21:15)
[2021-06-26 05:34] LABS: Basophils % 0.3 %; Eosinophils % 0.2 %; Hematocrit 44.7 % (42.0-52.0); Hemoglobin 13.9 g/dL (11.7-16.6); Lymphocytes # 1.8 10^3/uL (0.8-4.8); Lymphocytes % 19.6 %; Mean Corpuscular HGB Conc 31.1 g/dL (30.0-36.0); Mean Corpuscular Hemoglobin 32.3 pg (28.0-34.0); Mean Platelet Volume 9.2 fL (7.4-10.4); Monocytes # 0.6 10^3/uL (0.2-0.9); Monocytes % 6.7 %; Neutrophils # 6.58 10^3/uL (1.8-7.7); Neutrophils % 72.8 %; Nucleated Red Blood Cells % 0 %; Platelet Count 222 10^3/cmm (130-400); Red Cell Distribution Width 18.6 % (12.1-15.1); White Blood Count 9.1 10^3/uL (4.0-10.0)
[2021-06-26 05:57] LABS: Alanine Aminotransferase 25 U/L (0-41); Alkaline Phosphatase 105 IU/L (40-130); Anion Gap 16.3 (5-19); Aspartate Amino Transferase 57 U/L (0-40); Blood Urea Nitrogen 35 mg/dL (8-23); Calcium 9.6 mg/dL (8.5-10.5); Carbon Dioxide 26 mmol/L (22-29); Chloride 100 mmol/L (98-107); Globulin 3.5 g/dL (1.3-4.6); Glomerular Filtration Rate 41.3 mL/min (90-130); Glucose 106 mg/dL (65-115); Osmolality Calculated 292 mOsm/kg (285-295); Potassium 5.3 mmol/L (3.5-5.1); Sodium 137 mmol/L (136-145); Total Bilirubin 0.5 mg/dL (0.15-1.2); Total Protein 7.5 g/dL (6.6-8.7)
[2021-06-26] MEDS: thiamine 100 mg Tablet PO (08:09)
[2021-06-26] MEDS: folic acid 1 mg Tablet PO (08:09)
[2021-06-26] MEDS: fluoxetine 20 mg Capsule 60 MG OG-TUBE (08:09)
[2021-06-26] MEDS: FUROsemide 10 mg/mL SDV 10mL 60 MG IVP (08:10)
[2021-06-26] MEDS: multivitamin therapeutic Tablet 1 TAB PO (08:10)
[2021-06-26] MEDS: gabapentin 300 mg Capsule OG-TUBE ×2 (08:10→12:32)
[2021-06-26] MEDS: doxycycline 100 MG in sodium chloride 0.9% (plus) 100 ML IV ×2 (08:10→20:24)
[2021-06-26] MEDS: silver sulfadiazine cream 1% 50 gm 1 APPLIC TOPICAL (08:26)
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
--- NOTE | 2021-06-26 10:20 | PC.SOCIAL ---
IMM Updated Updated pt on IMM. No questions voiced. Provided pt a copy. Initialed, dated, & timed copy in chart.
--- NOTE | 2021-06-26 11:13 | PC.NURSE ---
Report called to nurse Kendra on [facility]. Patient transferred to room 258 via wheelchair accompanied by this nurse and girlfriend. 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 Kendra and FELISA noted to be at bedside at time of transfer, patient A&OX4 at this time.
[2021-06-26 12:46] LABS: Procalcitonin 0.17 ng/mL (0-0.5)
[2021-06-26] MEDS: acetaminophen 325 mg Tablet 650 MG XX (15:55)
[2021-06-26] MEDS: BuSPIRONE 10 mg Tablet PO ×2 (15:55→20:23)
[2021-06-26] MEDS: tamsulosin 0.4 mg Capsule PO (17:58)
[2021-06-26] MEDS: gabapentin 300 mg Capsule PO ×2 (17:58→20:23)
[2021-06-26] MEDS: pantoprazole 40 mg SDV IVP (17:59)
[2021-06-26] MEDS: hyDRALAzine 10 mg Tablet PO (20:23)
[2021-06-26] MEDS: pramipexole 0.25 mg Tablet 0.125 MG OG-TUBE (20:23)
[2021-06-27] VITALS (9 sets, daily range): BP systolic 125–153; BP diastolic 64–84; PULSE 75–110; RESP 12–21; TEMP 36.9–37.6; O2SAT 87–95
[2021-06-27] MEDS: heparin 5,000 unit/mL INJ 1 mL 5000 UNIT SUBCUT (04:50)
[2021-06-27] MEDS: piperacillin-tazobactam 3.375 GM in sodium chloride 0.9% (plus) 50 ML IV (04:50)
[2021-06-27 05:34] LABS: Basophils # 0.1 10^3/uL (0.0-0.1); Basophils % 0.8 %; Eosinophils # 0.2 10^3/uL (0.0-0.8); Eosinophils % 2.4 %; Hematocrit 45.5 % (42.0-52.0); Hemoglobin 14.2 g/dL (11.7-16.6); Lymphocytes # 2.2 10^3/uL (0.8-4.8); Lymphocytes % 24.2 %; Mean Corpuscular HGB Conc 31.2 g/dL (30.0-36.0); Mean Corpuscular Hemoglobin 32.1 pg (28.0-34.0); Mean Corpuscular Volume 102.7 fl (80-94); Monocytes # 1.1 10^3/uL (0.2-0.9); Monocytes % 11.9 %; Neutrophils # 5.52 10^3/uL (1.8-7.7); Nucleated Red Blood Cells % 0 %; Platelet Count 252 10^3/cmm (130-400); Red Blood Count 4.43 10^6/uL (4.1-5.3); Red Cell Distribution Width 18.6 % (12.1-15.1); White Blood Count 9.2 10^3/uL (4.0-10.0)
[2021-06-27 05:57] LABS: Alanine Aminotransferase 30 U/L (0-41); Albumin Level 3.9 g/dL (3.5-5.2); Alkaline Phosphatase 103 IU/L (40-130); Aspartate Amino Transferase 61 U/L (0-40); Blood Urea Nitrogen 36 mg/dL (8-23); Calcium 9.8 mg/dL (8.5-10.5); Carbon Dioxide 26 mmol/L (22-29); Chloride 97 mmol/L (98-107); Globulin 3.7 g/dL (1.3-4.6); Glomerular Filtration Rate 47.7 mL/min (90-130); Glucose 90 mg/dL (65-115); Osmolality Calculated 292 mOsm/kg (285-295); Sodium 137 mmol/L (136-145); Total Bilirubin 0.5 mg/dL (0.15-1.2); Total Protein 7.6 g/dL (6.6-8.7)
[2021-06-27 05:58] LABS: Anion Gap 18.6 (5-19); Potassium 4.6 mmol/L (3.5-5.1)
[2021-06-27] MEDS: doxycycline 100 MG in sodium chloride 0.9% (plus) 100 ML IV (07:04)
[2021-06-27] MEDS: ipratropium-albuterol 3 mL Neb INHALATION (07:37)
[2021-06-27] MEDS: FUROsemide 40 mg Tablet PO (08:36)
[2021-06-27] MEDS: hyDRALAzine 10 mg Tablet PO (08:37)
[2021-06-27] MEDS: predniSONE 20 mg Tablet PO (08:37)
[2021-06-27] MEDS: multivitamin therapeutic Tablet 1 TAB PO (08:37)
[2021-06-27] MEDS: gabapentin 300 mg Capsule PO (08:38)
[2021-06-27] MEDS: BuSPIRONE 10 mg Tablet PO (08:38)
[2021-06-27] MEDS: folic acid 1 mg Tablet PO (08:38)
[2021-06-27] MEDS: tamsulosin 0.4 mg Capsule PO (08:38)
[2021-06-27] MEDS: fluoxetine 20 mg Capsule 60 MG OG-TUBE (08:39)
[2021-06-27] MEDS: carvedilol 3.125 mg Tablet PO (08:39)
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
== END 2021-06-27 12:40 | disposition home health service (06) | DRG 208 ==
LOC: ER 14:39 → ICU 18:38 → MEDSURG 06-26 11:35
PROVIDERS: Internal Medicine Pulmonary Disease; Admitting Provider Internal Medicine; Emergency Provider Emergency Medicine; PCP Family Medicine; Visit Provider Internal Medicine
DX: J96.22 Acute and chronic respiratory failure with hypercapnia (principal); L89.893 Pressure ulcer of other site, stage 3; I50.33 Acute on chronic diastolic (congestive) heart failure; G92.8 Other toxic encephalopathy; N17.9 Acute kidney failure, unspecified; I13.0 Hypertensive heart and chronic kidney disease with heart failure and stage 1 through stage 4 chronic kidney disease, or unspecified chronic kidney disease; J44.1 Chronic obstructive pulmonary disease with (acute) exacerbation; E66.2 Morbid (severe) obesity with alveolar hypoventilation; E87.2 Acidosis; J96.21 Acute and chronic respiratory failure with hypoxia; I25.10 Atherosclerotic heart disease of native coronary artery without angina pectoris; Z95.5 Presence of coronary angioplasty implant and graft; I95.9 Hypotension, unspecified; F10.10 Alcohol abuse, uncomplicated; I35.0 Nonrheumatic aortic (valve) stenosis; N40.1 Benign prostatic hyperplasia with lower urinary tract symptoms; N18.30 Chronic kidney disease, stage 3 unspecified; G89.29 Other chronic pain; F41.8 Other specified anxiety disorders; K21.9 Gastro-esophageal reflux disease without esophagitis; Z68.37 Body mass index [BMI] 37.0-37.9, adult; F17.210 Nicotine dependence, cigarettes, uncomplicated; Z79.891 Long term (current) use of opiate analgesic; R68.0 Hypothermia, not associated with low environmental temperature; I73.9 Peripheral vascular disease, unspecified; Z89.9 Acquired absence of limb, unspecified; Z99.89 Dependence on other enabling machines and devices
CPT/HCPCS: 11042; 15275; 36415; 36416; 36600; 51702; 70450; 71045; 76770; 76857; 80051; 80053; 80306; 80307; 81001; 82330; 82533; 82803; 82805; 82962; 83605; 84145; 84443; 84484; 85025; 87040; 87086; 87426; 87641; 93005; 93306; 94002; 94003; 94640; 94660; 94664; 94799; 96365; 96366; 96367; 96372; 97110; 97161; 99291; A6250; A6251; C9113; J1644; J1720; J1940; J2250; J2310; J2543; J2704; J2920; J3010; J3370; J3411; J3490; J7030; J7050; J7512; Q4205

== ENCOUNTER → 2021-06-29 09:27 | Outpatient (BNVA) | payer MEDICARE, OTHER, SELFPAY | PROVIDERS: PCP Family Medicine; Visit Provider Emergency Medicine | DX: I96 Gangrene, not elsewhere classified (principal); L89.892 Pressure ulcer of other site, stage 2; L97.522 Non-pressure chronic ulcer of other part of left foot with fat layer exposed | CPT/HCPCS: 11042 ==

== ENCOUNTER → 2021-07-05 09:11 | Outpatient (BNVA) | payer MEDICARE, OTHER, SELFPAY | PROVIDERS: PCP Family Medicine; Visit Provider Anesthesiology Pain Medicine | DX: G89.29 Other chronic pain (principal); M47.816 Spondylosis without myelopathy or radiculopathy, lumbar region; M51.37 Other intervertebral disc degeneration, lumbosacral region; M79.604 Pain in right leg; M79.605 Pain in left leg; Z98.1 Arthrodesis status; F17.210 Nicotine dependence, cigarettes, uncomplicated; Z79.891 Long term (current) use of opiate analgesic | CPT/HCPCS: 99204 ==

== ENCOUNTER → 2021-07-06 13:07 | Outpatient (BNVA) | payer MEDICARE, OTHER, SELFPAY | PROVIDERS: PCP Family Medicine; Visit Provider Nurse Practitioner Family | DX: I11.0 Hypertensive heart disease with heart failure (principal); I50.32 Chronic diastolic (congestive) heart failure; F17.210 Nicotine dependence, cigarettes, uncomplicated | CPT/HCPCS: 99214 ==

== ENCOUNTER 2021-07-08 07:53 | Outpatient (CLI) | payer MEDICARE, OTHER, SELFPAY ==
--- NOTE | 2021-07-08 08:03 | NM_ITS ---
WS: [id number] THREE-PHASE BONE SCAN HISTORY: rule out osteomyelitis COMPARISON: 12/14/2020 and foot radiograph 07/08/2021. Patient is is injected with 24.8 mCi Tc99m HDP intravenously. Immediate angiographic phase imaging is performed over the area of concern. Static blood pool imaging also performed. Two-hour whole-body sc intigrams performed in anterior and posterior projections. Additional large field of view imaging sub mitted as necessary. 3 phase bone scan is centered over the feet, directed to the RIGHT foot. There is very mild hyperemia and increase in the blood pool on the early injection centered over the RIGHT foot. As compared to the prior study there has been a slight improvement. Less hyperemia. On th e delayed images there is focal increased uptake involving the proximal phalanx of the fifth toe. Thi s corresponds to a fracture seen on the radiograph obtained today. There is very mild increased uptak e throughout the first metatarsal head and the first toe. Also slightly improved since the prior exam ination. Suggest improving osteomyelitis. Mild degenerative type changes at the LEFT first metatarsal head. Mild AC joint arthritis. Normal sof t tissue uptake noted within the kidneys. There is also degenerative change within the knee joints bi laterally. Prior RIGHT knee arthroplasty. NM/NM bone 3 phase [id number] IMPRESSION: 1. Persistent but improved changes of cellulitis and osteomyelitis involving t he RIGHT first metatarsal head and first toe. Mild improvement since 12/14/2020. 2. Mild increased blood pool uptake involving the RIGHT foot. Probably due to cellulitis. 3. Healing fracture proximal phalanx fifth toe.
--- NOTE | 2021-07-08 10:55 | XR_ITS ---
WS: [id number] RIGHT FOOT: 3 VIEW(S) TECHNIQUE: AP, oblique and lateral. HISTORY: BONE SCAN COMPARISON COMPARISON: 07/30/2020 Partially healed fracture with callus formation with minimal displacement involving the proximal phal anx of the fifth toe. There is significant soft tissue edema surrounding the first metatarsal head and the first toe. No de structive bone lesion or osteomyelitis evident. There is soft tissue edema and soft tissue thickening along the plantar surface of the foot at the level of the first metatarsal head. Additional moderate osteoarthritis in the midfoot. Small calcaneal spur. Several hammertoe deformitie s. XR/XR foot RT min 3V* [id number] IMPRESSION: 1. Radiographically no osteomyelitis is evident involving the first toe or fir st metatarsal head. 2. There is soft tissue edema greatest involving the first metatarsal head and first toe. 3. Healing fracture proximal phalanx fifth toe.
== END 2021-07-08 07:54 | disposition home or self-care (01) ==
LOC: RAD 07:55
PROVIDERS: PCP Family Medicine; Visit Provider Emergency Medicine
DX: L97.521 Non-pressure chronic ulcer of other part of left foot limited to breakdown of skin (principal); M86.8X7 Other osteomyelitis, ankle and foot; M19.071 Primary osteoarthritis, right ankle and foot; S92.514D Nondisplaced fracture of proximal phalanx of right lesser toe(s), subsequent encounter for fracture with routine healing
CPT/HCPCS: 73630; 78315; A9561

== ENCOUNTER → 2021-07-13 09:16 | Outpatient (BNVA) | payer MEDICARE, OTHER, SELFPAY | PROVIDERS: PCP Family Medicine; Visit Provider Nurse Practitioner Family | DX: I96 Gangrene, not elsewhere classified (principal); L89.892 Pressure ulcer of other site, stage 2; L97.522 Non-pressure chronic ulcer of other part of left foot with fat layer exposed | CPT/HCPCS: 11042 ==

== ENCOUNTER → 2021-07-19 14:03 | Outpatient (BNVA) | payer MEDICARE, OTHER, SELFPAY | PROVIDERS: PCP Family Medicine; Visit Provider Anesthesiology Pain Medicine | DX: F17.210 Nicotine dependence, cigarettes, uncomplicated (principal); Z79.891 Long term (current) use of opiate analgesic; M47.816 Spondylosis without myelopathy or radiculopathy, lumbar region | CPT/HCPCS: 64493; 64494; 64495; J3490 ==

== ENCOUNTER → 2021-07-20 09:53 | Outpatient (BNVA) | payer MEDICARE, OTHER, SELFPAY | PROVIDERS: PCP Family Medicine; Visit Provider Nurse Practitioner Family | DX: I96 Gangrene, not elsewhere classified (principal); L89.892 Pressure ulcer of other site, stage 2; L97.522 Non-pressure chronic ulcer of other part of left foot with fat layer exposed | CPT/HCPCS: 11042 ==

== ENCOUNTER → 2021-07-27 09:39 | Outpatient (BNVA) | payer MEDICARE, OTHER, SELFPAY | PROVIDERS: PCP Family Medicine; Visit Provider Nurse Practitioner Family | DX: I96 Gangrene, not elsewhere classified (principal); L89.892 Pressure ulcer of other site, stage 2; L97.522 Non-pressure chronic ulcer of other part of left foot with fat layer exposed | CPT/HCPCS: 11042; A6197 ==

== ENCOUNTER 2021-07-29 11:01 | Outpatient (CLI) | payer MEDICARE, OTHER, SELFPAY ==
--- NOTE | 2021-07-29 11:00 | CT_ITS ---
WS: [id number] CT ABDOMEN PELVIS TECHNIQUE: Noncontrast CT of the abdomen and pelvis with coronal and sagittal reformatted images. CLINICAL INFORMATION: BILATERAL RENAL MASSES COMPARISON: CTA May 25, 2020 and ultrasound 01/04 and 01/26/2021 DLP: 1241.[address] scans at [facility] use at least one of these dose optimization techniques: automated e xposure control; mA and/or kV adjustment per patient size (includes targeted exams where dose is matc hed to clinical indication); or iterative reconstruction. FINDINGS: Bilateral renal cysts largest LEFT upper pole measuring 7.6 x 8.1 cm. Smaller bilateral cysts with i ncreased attenuation compatible with hemorrhagic or proteinaceous cysts.Atrophic RIGHT kidney. No hyd ronephrosis in either kidney. RIGHT lower pole calyceal calculus measuring 8 mm. No obstructing urete ral calculi.Previously described suspicious lesion upper pole RIGHT kidney measuring 2.0 x 2.5 cm is unchanged from May 25, 2020. Hepatomegaly. Slightly nodular contour to the liver. Mild splenomegaly. Normal GE junction. Adrenal g lands are normal. Noncontrast pancreas is normal. Lung bases are well aerated. Normal caliber abdominal aorta. Aortic calcification. Shotty periaortic lymph nodes. Sigmoid diverticulosis. No evidence of acute diverticulitis. No pelvic or inguinal lymphadenopathy. P edicle screw fixation with interbody fusion L3-L5 with solid appearing bony fusion. Disc space narrow ing worse at L2-L3 with vacuum disc phenomenon. . IMPRESSION: 1. No hydronephrosis in either kidney. Multiple bilateral renal cysts largest in LEFT upper pole ole suring 8.1 x 7.6 CM. Additional increased attenuation smaller lesions bilaterally likely proteinaceou s or hemorrhagic similar in appearance to the prior examinations. Recommend continued surveillance. 2. Previously described suspicious lesion upper pole RIGHT kidney, suspicious for renal cell neoplas m, measuring 2.0 x 2.5 cm is unchanged from May 25, 2020. 3. Atrophic RIGHT kidney. Nonobstructing 8 mm RIGHT calyceal calculus. 4. No obstructing ureteral calculi. 5. Sigmoid diverticulosis. 6. Hepatomegaly with slightly cirrhotic configuration to the liver capsule. Recommend correlation liver function tests. 7. Prior postoperative changes lumbosacral fusion. 8. Prostate calcification. Prostate measures 5.0 CM. Recommend correlation PSA
== END 2021-07-29 11:02 | disposition home or self-care (01) ==
PROVIDERS: PCP Family Medicine; Visit Provider Urology
DX: N28.89 Other specified disorders of kidney and ureter (principal); K57.30 Diverticulosis of large intestine without perforation or abscess without bleeding; R16.0 Hepatomegaly, not elsewhere classified; N40.1 Benign prostatic hyperplasia with lower urinary tract symptoms
CPT/HCPCS: 74176; 81003; 99214

== ENCOUNTER → 2021-08-02 13:13 | Outpatient (BNVA) | payer MEDICARE, OTHER, SELFPAY | PROVIDERS: PCP Family Medicine; Visit Provider Anesthesiology Pain Medicine | DX: F17.210 Nicotine dependence, cigarettes, uncomplicated (principal); Z79.891 Long term (current) use of opiate analgesic; M47.816 Spondylosis without myelopathy or radiculopathy, lumbar region | CPT/HCPCS: 64493; 64494; 64495; J3490 ==

== ENCOUNTER → 2021-08-03 13:11 | Outpatient (BNVA) | payer MEDICARE, OTHER, SELFPAY | PROVIDERS: PCP Family Medicine; Visit Provider Nurse Practitioner Family | DX: I96 Gangrene, not elsewhere classified (principal); L89.892 Pressure ulcer of other site, stage 2; L97.522 Non-pressure chronic ulcer of other part of left foot with fat layer exposed | CPT/HCPCS: 11042 ==

== ENCOUNTER → 2021-08-05 13:13 | Outpatient (BNVA) | payer MEDICARE, OTHER, SELFPAY | PROVIDERS: PCP Family Medicine; Visit Provider Internal Medicine Cardiovascular Disease | DX: Z09 Encounter for follow-up examination after completed treatment for conditions other than malignant neoplasm (principal); I95.9 Hypotension, unspecified; I13.0 Hypertensive heart and chronic kidney disease with heart failure and stage 1 through stage 4 chronic kidney disease, or unspecified chronic kidney disease; F17.210 Nicotine dependence, cigarettes, uncomplicated; N18.9 Chronic kidney disease, unspecified; I50.32 Chronic diastolic (congestive) heart failure; I87.2 Venous insufficiency (chronic) (peripheral); E66.9 Obesity, unspecified; Z68.38 Body mass index [BMI] 38.0-38.9, adult | CPT/HCPCS: 99214 ==

== ENCOUNTER → 2021-08-10 10:35 | Outpatient (BNVA) | payer MEDICARE, OTHER, SELFPAY | PROVIDERS: PCP Family Medicine; Visit Provider Nurse Practitioner Family | DX: I96 Gangrene, not elsewhere classified (principal); L89.892 Pressure ulcer of other site, stage 2; L97.522 Non-pressure chronic ulcer of other part of left foot with fat layer exposed | CPT/HCPCS: 11042 ==

== ENCOUNTER → 2021-08-12 13:50 | Outpatient (BNVA) | payer MEDICARE, OTHER, SELFPAY | PROVIDERS: PCP Family Medicine; Visit Provider Anesthesiology Pain Medicine | DX: M47.816 Spondylosis without myelopathy or radiculopathy, lumbar region (principal); M51.37 Other intervertebral disc degeneration, lumbosacral region; M79.604 Pain in right leg; M79.605 Pain in left leg; Z98.1 Arthrodesis status; Z79.891 Long term (current) use of opiate analgesic; F17.210 Nicotine dependence, cigarettes, uncomplicated | CPT/HCPCS: 99214 ==

== ENCOUNTER → 2021-08-17 09:35 | Outpatient (BNVA) | payer MEDICARE, OTHER, SELFPAY | PROVIDERS: PCP Family Medicine; Visit Provider Emergency Medicine | DX: I96 Gangrene, not elsewhere classified (principal); L89.892 Pressure ulcer of other site, stage 2 | CPT/HCPCS: 11042; 87070; 87077; 87176; 87186; 87205; A6197 ==

== ENCOUNTER → 2021-08-24 09:43 | Outpatient (BNVA) | payer MEDICARE, OTHER, SELFPAY | PROVIDERS: PCP Family Medicine; Visit Provider Nurse Practitioner Family | DX: L89.892 Pressure ulcer of other site, stage 2 (principal); I96 Gangrene, not elsewhere classified | CPT/HCPCS: 11042; A6197 ==

== ENCOUNTER → 2021-08-31 09:25 | Outpatient (BNVA) | payer MEDICARE, OTHER, SELFPAY | PROVIDERS: PCP Family Medicine; Visit Provider Nurse Practitioner Family | DX: I96 Gangrene, not elsewhere classified (principal); L89.892 Pressure ulcer of other site, stage 2 | CPT/HCPCS: 15275; A6206; Q4205 ==

== ENCOUNTER → 2021-09-06 14:13 | Outpatient (BNVA) | payer MEDICARE, OTHER, SELFPAY | PROVIDERS: PCP Family Medicine; Visit Provider Anesthesiology Pain Medicine | DX: M25.552 Pain in left hip (principal); F17.210 Nicotine dependence, cigarettes, uncomplicated; M47.816 Spondylosis without myelopathy or radiculopathy, lumbar region | CPT/HCPCS: 64635; 64636; 73502; J1030 ==

== ENCOUNTER → 2021-09-07 09:29 | Outpatient (BNVA) | payer MEDICARE, OTHER, SELFPAY | PROVIDERS: PCP Family Medicine; Visit Provider Nurse Practitioner Family | DX: L89.892 Pressure ulcer of other site, stage 2 (principal); I96 Gangrene, not elsewhere classified | CPT/HCPCS: 15275; A6206; A6220; Q4205 ==

== ENCOUNTER → 2021-09-16 09:07 | Outpatient (BNVA) | payer MEDICARE, OTHER, SELFPAY | PROVIDERS: PCP Family Medicine; Visit Provider Nurse Practitioner Family | DX: I96 Gangrene, not elsewhere classified (principal); L89.892 Pressure ulcer of other site, stage 2 | CPT/HCPCS: 11042 ==

== ENCOUNTER → 2021-09-21 10:52 | Outpatient (BNVA) | payer MEDICARE, OTHER, SELFPAY | PROVIDERS: PCP Family Medicine; Visit Provider Nurse Practitioner Family | DX: I96 Gangrene, not elsewhere classified (principal); L89.892 Pressure ulcer of other site, stage 2 | CPT/HCPCS: 11042; 87070; 87077; 87176; 87186; 87205 ==

== ENCOUNTER → 2021-09-28 10:58 | Outpatient (BNVA) | payer MEDICARE, OTHER, SELFPAY | PROVIDERS: PCP Family Medicine; Visit Provider Nurse Practitioner Family | DX: I96 Gangrene, not elsewhere classified (principal); L89.892 Pressure ulcer of other site, stage 2 | CPT/HCPCS: 11042 ==

== ENCOUNTER → 2021-09-30 13:39 | Outpatient (BNVA) | payer MEDICARE, OTHER, SELFPAY | PROVIDERS: PCP Family Medicine; Visit Provider Anesthesiology Pain Medicine | DX: F17.210 Nicotine dependence, cigarettes, uncomplicated (principal); M47.816 Spondylosis without myelopathy or radiculopathy, lumbar region | CPT/HCPCS: 64635; 64636; J1030 ==

== ENCOUNTER → 2021-10-05 09:56 | Outpatient (BNVA) | payer MEDICARE, OTHER, SELFPAY | PROVIDERS: PCP Family Medicine; Visit Provider Nurse Practitioner Family | DX: I96 Gangrene, not elsewhere classified (principal); L89.892 Pressure ulcer of other site, stage 2 | CPT/HCPCS: 11042 ==

== ENCOUNTER → 2021-10-12 09:50 | Outpatient (BNVA) | payer MEDICARE, OTHER, SELFPAY | PROVIDERS: PCP Family Medicine; Visit Provider Thoracic Surgery (Cardiothoracic Vascular Surgery) | DX: L89.892 Pressure ulcer of other site, stage 2 (principal) | CPT/HCPCS: 97597 ==

== ENCOUNTER → 2021-10-14 09:50 | Outpatient (BNVA) | payer MEDICARE, OTHER, SELFPAY | PROVIDERS: PCP Family Medicine; Visit Provider Anesthesiology Pain Medicine | DX: M47.816 Spondylosis without myelopathy or radiculopathy, lumbar region (principal); M51.37 Other intervertebral disc degeneration, lumbosacral region; Z98.1 Arthrodesis status; F17.210 Nicotine dependence, cigarettes, uncomplicated | CPT/HCPCS: 99212 ==

== ENCOUNTER → 2021-10-28 09:05 | Outpatient (BNVA) | payer MEDICARE, OTHER, SELFPAY | PROVIDERS: PCP Family Medicine; Referring Provider Family Medicine; Visit Provider Orthopaedic Surgery | DX: M54.2 Cervicalgia (principal); M51.37 Other intervertebral disc degeneration, lumbosacral region; R20.0 Anesthesia of skin | CPT/HCPCS: 72040; 72110; 99214 ==

== ENCOUNTER → 2021-11-02 10:33 | Outpatient (BNVA) | payer MEDICARE, OTHER, SELFPAY | PROVIDERS: PCP Family Medicine; Visit Provider Thoracic Surgery (Cardiothoracic Vascular Surgery) | DX: I96 Gangrene, not elsewhere classified (principal); L89.892 Pressure ulcer of other site, stage 2 | CPT/HCPCS: 11042 ==

== ENCOUNTER → 2021-11-09 09:36 | Outpatient (BNVA) | payer MEDICARE, OTHER, SELFPAY | PROVIDERS: PCP Family Medicine; Visit Provider Nurse Practitioner Family | DX: I96 Gangrene, not elsewhere classified (principal); L89.892 Pressure ulcer of other site, stage 2 | CPT/HCPCS: 11042 ==

== ENCOUNTER → 2021-11-16 09:31 | Outpatient (BNVA) | payer MEDICARE, OTHER, SELFPAY | PROVIDERS: PCP Family Medicine; Visit Provider Nurse Practitioner Family | DX: I96 Gangrene, not elsewhere classified (principal); L89.892 Pressure ulcer of other site, stage 2 | CPT/HCPCS: 99213; A6250 ==

== ENCOUNTER → 2021-11-23 09:17 | Outpatient (BNVA) | payer MEDICARE, OTHER, SELFPAY | PROVIDERS: PCP Family Medicine; Visit Provider Nurse Practitioner Family | DX: I96 Gangrene, not elsewhere classified (principal); L89.892 Pressure ulcer of other site, stage 2 | CPT/HCPCS: 11042 ==

== ENCOUNTER 2021-11-28 04:26 | Emergency (ER) | payer MEDICARE, OTHER, SELFPAY ==
[2021-11-28 04:32] VITALS: BP 189/98; PULSE 85; RESP 16; TEMP 36.3; O2SAT 93
--- NOTE | 2021-11-28 04:35 | XRR_ITS ---
PROCEDURE INFORMATION: Exam: XR Chest Exam date and time: 11/28/2021 4:56 AM Age: 61 years old Clinical indication: Pain; Chest pressure; Additional info: Cp TECHNIQUE: Imaging protocol: Radiologic exam of the chest. Views: 1 view. COMPARISON: CR XR chest 1V portable [id number] 06/24/2021 4:42 AM FINDINGS: Lungs: No CHF/pulmonary edema. Visible lungs appear essentially clear. Pleural spaces: No visible pneumothorax. No definite pleural fluid. Heart/Mediastinum: Mild to moderate cardiomegaly. Bones/joints: Evidence for prior fusion involving the lower cervical and upper thoracic spine. XR/XR chest 1V portable [id number] IMPRESSION: 1. No definite CHF or pneumonia. 2. Other findings discussed above.
--- NOTE | 2021-11-28 04:35 | ECG_ITS ---
[facility] Test Date: 2021-11-28 Pat Name: Perry Norman Department: Room: Gender: Male Joint Creaser: : 1960 Requested By: Barrett Griffiths Order Number: [id number] Bishop MD: Daniel Null M.D. Measurements Intervals [place] Rate: 77 P: 72 OK: 196 QRS: -17 QRSD: 132 T: -14 QT: 395 QTc: 450 Interpretive Statements SINUS RHYTHM POSSIBLE LEFT ATRIAL ENLARGEMENT [-0.1mV P-WAVE IN V1/V2] INTRAVENTRICULAR CONDUCTION DELAY [130+ ms QRS DURATION] SEPTAL MYOCARDIAL INFARCTION , OF INDETERMINATE AGE [40+ ms Q WAVE IN V1/V2] Compared to ECG 06/23/2021 18:47:45 Intraventricular conduction delay now present Myocardial infarct finding now present Ventricular premature complex(es) no longer present Left bundle-branch block no longer present Electronically Signed On 11-28-2021 21:59:15 CDT by Daniel Null M.D. [id number]
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
[2021-11-28] MEDS: labetalol 5 mg/mL SDV 20mL 10 MG IVP (04:52)
[2021-11-28] MEDS: ondansetron 2 mg/ML SDV 2 mL 4 MG IVP (04:53)
[2021-11-28] MEDS: HYDROmorphone 1 mg/mL INJ 1 mL 0.5 MG IVP (04:53)
[2021-11-28] MEDS: aspirin 81 mg Chew Tablet 324 MG PO (04:56)
[2021-11-28 05:02] LABS: Basophils # 0.1 10^3/uL (0.0-0.1); Eosinophils # 0.2 10^3/uL (0.0-0.8); Eosinophils % 2.2 %; Hematocrit 49.4 % (42.0-52.0); Hemoglobin 15.3 g/dL (11.7-16.6); Lymphocytes # 2.3 10^3/uL (0.8-4.8); Lymphocytes % 25.9 %; Mean Corpuscular Volume 90.5 fl (80-94); Mean Platelet Volume 9.5 fL (7.4-10.4); Monocytes # 0.9 10^3/uL (0.2-0.9); Monocytes % 9.8 %; Neutrophils # 5.45 10^3/uL (1.8-7.7); Neutrophils % 60.7 %; Nucleated Red Blood Cells % 0 %; Platelet Count 185 10^3/cmm (130-400); Red Blood Count 5.46 10^6/uL (4.1-5.3); Red Cell Distribution Width 16.1 % (12.1-15.1)
[2021-11-28 05:20] LABS: Alanine Aminotransferase 12 U/L (0-41); Alkaline Phosphatase 136 U/L (40-130); Aspartate Amino Transferase 11 U/L (0-40); Blood Urea Nitrogen 15 mg/dL (8-23); Calcium 9.2 mg/dL (8.5-10.5); Carbon Dioxide 26 mmol/L (22-29); Chloride 102 mmol/L (98-107); Globulin 2.9 g/dL (1.3-4.6); Glomerular Filtration Rate 68.1 mL/min (90-130); Glucose 105 mg/dL (65-115); Osmolality Calculated 287 mOsm/kg (285-295); Sodium 138 mmol/L (136-145); Total Bilirubin 0.3 mg/dL (0.15-1.2); Total Protein 6.9 g/dL (6.6-8.7)
[2021-11-28 05:21] LABS: Troponin(5th) Baseline 12 ng/L (0-15)
== END 2021-11-28 06:00 | disposition home or self-care (01) ==
PROVIDERS: Emergency Provider Emergency Medicine; PCP Family Medicine
DX: I11.0 Hypertensive heart disease with heart failure (principal); I50.9 Heart failure, unspecified; R07.9 Chest pain, unspecified; F17.210 Nicotine dependence, cigarettes, uncomplicated; J44.9 Chronic obstructive pulmonary disease, unspecified; Z95.5 Presence of coronary angioplasty implant and graft
CPT/HCPCS: 71045; 80053; 84484; 85025; 93005; 96374; 96375; 99285; J1170; J2405; J3490

== ENCOUNTER → 2021-11-30 09:44 | Outpatient (BNVA) | payer MEDICARE, OTHER, SELFPAY | PROVIDERS: PCP Family Medicine; Visit Provider Nurse Practitioner Family | DX: I96 Gangrene, not elsewhere classified (principal); L89.892 Pressure ulcer of other site, stage 2 | CPT/HCPCS: 11042 ==

== ENCOUNTER → 2021-12-07 10:48 | Outpatient (BNVA) | payer MEDICARE, OTHER, SELFPAY | PROVIDERS: PCP Family Medicine; Visit Provider Nurse Practitioner Family | DX: I96 Gangrene, not elsewhere classified (principal); L89.892 Pressure ulcer of other site, stage 2 | CPT/HCPCS: 11042; A6250 ==

== ENCOUNTER → 2021-12-14 09:08 | Outpatient (BNVA) | payer MEDICARE, OTHER, SELFPAY | PROVIDERS: PCP Family Medicine; Referring Provider Orthopaedic Surgery; Visit Provider Specialist | DX: G56.03 Carpal tunnel syndrome, bilateral upper limbs (principal); G56.23 Lesion of ulnar nerve, bilateral upper limbs; I96 Gangrene, not elsewhere classified; L89.892 Pressure ulcer of other site, stage 2 | CPT/HCPCS: 15275; 95910; 95913; A6250; Q4186 ==

== ENCOUNTER → 2021-12-21 13:42 | Outpatient (BNVA) | payer MEDICARE, OTHER, SELFPAY | PROVIDERS: PCP Family Medicine; Visit Provider Nurse Practitioner Family | DX: I96 Gangrene, not elsewhere classified (principal); L89.892 Pressure ulcer of other site, stage 2 | CPT/HCPCS: 15275; A6206; A6252; Q4186 ==

== ENCOUNTER → 2021-12-28 13:54 | Outpatient (BNVA) | payer MEDICARE, OTHER, SELFPAY | PROVIDERS: PCP Family Medicine; Visit Provider Nurse Practitioner Family | DX: I96 Gangrene, not elsewhere classified (principal); L89.892 Pressure ulcer of other site, stage 2 | CPT/HCPCS: 11042 ==

== ENCOUNTER → 2022-01-04 09:39 | Outpatient (BNVA) | payer MEDICARE, OTHER, SELFPAY | PROVIDERS: PCP Family Medicine; Visit Provider Nurse Practitioner Family | DX: I96 Gangrene, not elsewhere classified (principal); L89.892 Pressure ulcer of other site, stage 2 | CPT/HCPCS: 11042; A6250 ==

== ENCOUNTER → 2022-01-11 09:23 | Outpatient (BNVA) | payer MEDICARE, OTHER, SELFPAY | PROVIDERS: PCP Family Medicine; Visit Provider Nurse Practitioner Family | DX: I96 Gangrene, not elsewhere classified (principal); L89.892 Pressure ulcer of other site, stage 2 | CPT/HCPCS: 15271; A6207; A6250; Q4205 ==

== ENCOUNTER → 2022-01-18 09:25 | Outpatient (BNVA) | payer MEDICARE, OTHER, SELFPAY | PROVIDERS: PCP Family Medicine; Visit Provider Nurse Practitioner Family | DX: I96 Gangrene, not elsewhere classified (principal); L97.512 Non-pressure chronic ulcer of other part of right foot with fat layer exposed | CPT/HCPCS: 11042 ==

== ENCOUNTER → 2022-01-20 16:15 | Outpatient (BNVA) | payer MEDICARE, OTHER, SELFPAY | PROVIDERS: PCP Family Medicine; Visit Provider Orthopaedic Surgery | DX: M54.2 Cervicalgia (principal); G56.03 Carpal tunnel syndrome, bilateral upper limbs; G56.23 Lesion of ulnar nerve, bilateral upper limbs | CPT/HCPCS: 99214 ==

== ENCOUNTER → 2022-01-25 08:09 | Outpatient (BNVA) | payer MEDICARE, OTHER, SELFPAY | PROVIDERS: PCP Family Medicine; Visit Provider Student in an Organized Health Care Education/Training Program | DX: I96 Gangrene, not elsewhere classified (principal); L89.892 Pressure ulcer of other site, stage 2; G56.03 Carpal tunnel syndrome, bilateral upper limbs; G56.23 Lesion of ulnar nerve, bilateral upper limbs; M67.431 Ganglion, right wrist | CPT/HCPCS: 11042; 73110; 99204; A6250 ==

== ENCOUNTER → 2022-01-31 13:39 | Outpatient (BNVA) | payer MEDICARE, OTHER, SELFPAY | PROVIDERS: PCP Family Medicine; Visit Provider Internal Medicine Cardiovascular Disease | DX: I13.0 Hypertensive heart and chronic kidney disease with heart failure and stage 1 through stage 4 chronic kidney disease, or unspecified chronic kidney disease (principal); F17.210 Nicotine dependence, cigarettes, uncomplicated; N18.9 Chronic kidney disease, unspecified; I50.32 Chronic diastolic (congestive) heart failure; I87.2 Venous insufficiency (chronic) (peripheral); E66.9 Obesity, unspecified; Z68.37 Body mass index [BMI] 37.0-37.9, adult | CPT/HCPCS: 99214 ==

== ENCOUNTER → 2022-02-01 10:42 | Outpatient (BNVA) | payer MEDICARE, OTHER, SELFPAY | PROVIDERS: PCP Family Medicine; Visit Provider Thoracic Surgery (Cardiothoracic Vascular Surgery) | DX: I96 Gangrene, not elsewhere classified (principal); L89.892 Pressure ulcer of other site, stage 2 | CPT/HCPCS: 97597; A6212 ==

== ENCOUNTER 2022-02-02 02:14 | Emergency (ER) | payer MEDICARE, OTHER, SELFPAY ==
[2022-02-02 02:27] VITALS: BP 193/110; PULSE 76; RESP 22; TEMP 36.8; O2SAT 97; BMI 36.7
--- NOTE | 2022-02-02 02:35 | CTR_ITS ---
PROCEDURE INFORMATION: Exam: CT Head Without Contrast Exam date and time: 02/02/2022 3:12 AM Age: 61 years old Clinical indication: Pain; Headache; Patient HX: FERRO with hypertension TECHNIQUE: Imaging protocol: Computed tomography of the head without contrast. Radiation optimization: All CT scans at this facility use at least one of these dose optimization techniques: automated exposure control; mA and/or kV adjustment per patient size (includes targeted exams where dose is matched to clinical indication); or iterative reconstruction. COMPARISON: CT head wo con* [id number] 06/23/2021 2:54 PM RADIATION DOSE METRICS: Total DLP (mGy-cm): 1078.98 FINDINGS: Brain: No acute intracranial hemorrhage, abnormal extra-axial fluid collection, mass effect, or midline shift. Subtle areas of decreased attenuation within the bilateral frontal lobes. Cerebral ventricles: The ventricular system is within normal limits of variation for the patient's age. Paranasal sinuses: Mild mucosal thickening of the ethmoid air cells. Soft tissue density within the partially imaged right maxillary sinus may represent mucosal thickening versus mucous retention cyst. Mucosal thickening and bubbly secretions within the left sphenoid sinus. Minimal to mild mucosal thickening at the anterior aspect of the right sphenoid sinus. The frontal sinuses are grossly clear. Mastoid air cells: Visualized mastoid air cells are well aerated. Bones/joints: No acute fracture. Soft tissues: Unremarkable. Vasculature: Atheromatous changes are seen within the bilateral carotid siphons. CT/CT head wo con* [id number] IMPRESSION: 1. No acute intracranial hemorrhage. 2. Subtle areas of decreased attenuation within the bilateral superior frontal lobes, findings are concerning for atypical acute hypertensive encephalopathy. An MRI of the brain can be obtained for further evaluation if clinically indicated. 3. Paranasal sinus disease as described above. 4. Other chronic/incidental findings as described above.
--- NOTE | 2022-02-02 02:37 | ED_ITS ---
HPI - Headache General: Chief Complaint: Headache Stated Complaint: high bp Time Seen by Provider: 02/02/22 02:16 Source: patient Mode of arrival: ambulatory Limitations: no limitations History of Present Illness: 61-year-old male has a history of high blood pressure he states that he did have 3 shots of alcohol last night and he states that when he does that he tends to have problems with his blood pressure he states that he woke up this morning at 1 AM was hypertensive and had a mild headache states his headaches 3 out of 10 he denies any chest pain denies any fever denies any vomiting. PFSH ED PFSH: Medical History Alcoholism Aortic stenosis BPH loc w urin obs/LUTS CHF (congestive heart failure) Chronic pain CKD (chronic kidney disease) CO2 narcosis Colon polyps COPD (chronic obstructive pulmonary disease) CRI (chronic renal insufficiency) Cubital tunnel syndrome, bilateral DDD (degenerative disc disease) Depression with anxiety Diverticulosis DJD (degenerative joint disease) Esophageal candidiasis Ganglion cyst of volar aspect of right wrist GERD (gastroesophageal reflux disease) HTN (hypertension) LVH (left ventricular hypertrophy) Obesity Pressure ulcers of skin of multiple topographic sites Sleep apnea Venous (peripheral) insufficiency Surgical History History of aortic aneurysm repair History of coronary angioplasty with insertion of stent History of nasal surgery History of right knee joint replacement Hx of tonsillectomy Previous back surgery x 4 Family History Mother , in early 70's Heart attack Father No problems noted. Other CAD (coronary artery disease) Social History Smoking and tobacco status: current every day smoker cigarettes Packs smoked per day: 3 Alcohol intake: current Alcohol intake frequency: few times a month Alcohol type: beer Household members: significant other Marital status: Marital status details: No longer with his in last 5 years, who takes care of his financials Current occupational status: disabled History of recent travel: No Physical Exam Const: COMMON NORMALS: no acute distress, patient oriented x3 and healthy appearing HENMT: COMMON NORMALS: normocephalic and atraumatic HEAD & SCALP: normocephalic and atraumatic Eye: COMMON NORMALS: Equal, round and reactive pupils present and EOMs intact bilaterally PUPIL: Yes Equal, round and reactive pupils present Neck/C-Spine: COMMON NORMALS: full ROM and supple Chest: COMMONS NORMALS: normal inspection of the chest and normal palpation of entire chest wall Resp: COMMON NORMALS: normal respiratory effort, No retractions, No use of accessory muscles and clear to auscultation bilaterally AUSCULTATION: clear to auscultation bilaterally Cardio: COMMON NORMALS: regular rate, regular rhythm and No murmurs present (Cardio) RATE: regular rate RHYTHM: regular rhythm GI: COMMON NORMALS: Normal to inspection, nondistended, normoactive bowel sounds present, Soft to palpation, non-tender and no masses PALPATION: Yes Soft to palpation Extremity: COMMON NORMALS: normal to inspection and full ROM Neuro: COMMON NORMALS: patient oriented x3, moves all extremities and no focal motor deficits Psych: COMMON NORMALS: mental status grossly normal, Normal thought process present and cooperative THOUGHT PROCESS: Normal thought process present Skin: COMMON NORMALS: no rashes or lesions noted and no wounds GENERAL SKIN EXAM: no rashes or lesions noted Course Vital Signs: Vital signs: Vital Signs Temperature 98.2 F 02/02/22 02:27 Pulse Rate 70 02/02/22 03:30 Respiratory Rate 18 02/02/22 03:30 Blood Pressure 150/92 02/02/22 03:30 Pulse Oximetry 97 02/02/22 03:30 Oxygen Delivery Me thod 02/02/22 02:27 Oxygen Flow Rate 2 02/02/22 02:27 MDM - Headache Medical Decision Making Patient presents with headache that is since resolved his blood pressure is improved here as well I did discuss CT findings with him and the radiologist he has not altered his headache feels improved he like to go home I informed he needs to keep a blood pressure log keep his blood pressure under control follow- up with his PCP and return if worsening he understands and agrees to plan. Lab Data 02/02/22 02:30 02/02/22 02:[address] 02/02/22 02:35 IMPRESSION: 1. No acute intracranial hemorrhage. 2. Subtle areas of decreased attenuation within the bilateral superior frontal lobes, findings are concerning for atypical acute hypertensive encephalopathy. An MRI of the brain can be obtained for further evaluation if clinically indicated. 3. Paranasal sinus disease as described above. 4. Other chronic/incidental findings as described above. ADDENDUM: 02/02/22 0418 The findings were verbally communicated via telephone conference with Dr. Griffiths at 4:15 AM AIRCRAFT ENGINE SPECIALIST on 02/02/2022. The findings were acknowledged and understood. Laboratory Results WBC 7.9 10^3/uL (4.0-10.0) 02/02/22 02:30 RBC 5.66 10^6/uL (4.1-5.3) H 02/02/22 02:30 Hgb 16.0 g/dL (11.7-16.6) 02/02/22 02:30 Hct 52.5 % (42.0-52.0) H 02/02/22 02:30 MCV 92.8 fl (80-94) 02/02/22 02:30 MCH 28.3 pg (28.0-34.0) 02/02/22 02:30 MCHC 30.5 g/dL (30.0-36.0) 02/02/22 02:30 RDW 16.4 % (12.1-15.1) H 02/02/22 02:30 Plt Count 187 10^3/cmm (130-400) 02/02/22 02:30 MPV 9.5 fL (7.4-10.4) 02/02/22 02:30 Neut % (Auto) 56.8 % 02/02/22 02:30 Lymph % (Auto) 23.1 % 02/02/22 02:30 [place] % (Auto) 14.5 % 02/02/22 02:30 Eos % (Auto) 4.4 % 02/02/22 02:30 Baso % (Auto) 0.9 % 02/02/22 02:30 Neut # (Auto) 4.48 10^3/uL (1.8-7.7) 02/02/22 02:30 Lymph # (Auto) 1.8 10^3/uL (0.8-4.8) 02/02/22 02:30 [place] # (Auto) 1.1 10^3/uL (0.2-0.9) H 02/02/22 02:30 Eos # (Auto) 0.4 10^3/uL (0.0-0.8) 02/02/22 02:30 Baso # (Auto) 0.1 10^3/uL (0.0-0.1) 02/02/22 02:30 Nucleated RBC % (auto) 0 % 02/02/22 02:30 Nucleated RBCs # 0.0 /100WBC 02/02/22 02:30 Sodium 139 mmol/L (136-145) 02/02/22 02:30 Potassium 4.2 mmol/L (3.5-5.1) 02/02/22 02:30 Chloride 102 mmol/L (98-107) 02/02/22 02:30 Carbon Dioxide 28 mmol/L (22-29) 02/02/22 02:30 Anion Gap 13.2 (5-19) 02/02/22 02:30 BUN 17 mg/dL (8-23) 02/02/22 02:30 Creatinine 1.5 mg/dL (0.7-1.2) H 02/02/22 02:30 GFR Calculation 47.6 mL/min (90-130) L 02/02/22 02:30 Glucose 93 mg/dL (65-115) 02/02/22 02:30 Calculated Osmolality 289 mOsm/kg (285-295) 02/02/22 02:30 Calcium 9.5 mg/dL (8.5-10.5) 02/02/22 02:30 Total Bilirubin 0.3 mg/dL (0.15-1.2) 02/02/22 02:30 AST 15 U/L (0-40) 02/02/22 02:30 ALT 15 U/L (0-41) 02/02/22 02:30 Alkaline Phosphatase 144 U/L (40-130) H 02/02/22 02:30 Total Protein 7.0 g/dL (6.6-8.7) 02/02/22 02:30 Albumin 4.0 g/dL (3.5-5.2) 02/02/22 02:30 Globulin 3.0 g/dL (1.3-4.6) 02/02/22 02:30 Discharge Plan Discharge Patient Disposition: Home Clinical Impression: Headache, HTN (hypertension) Condition: Stable Prescriptions: No Action lovastatin 40 mg tablet 40 mg PO DAILY oxycodone-acetaminophen [Percocet] 10-325 mg tablet 1 tab PO Q4H PRN (Reason: Pain) albuterol sulfate [Ventolin HFA] 90 mcg/actuation HFA aerosol inhaler 2 puff INHALATION Q6H PRN (Reason: Shortness Of Breath) bisacodyl [Dulcolax (bisacodyl)] 5 mg tablet,delayed release (DR/EC) 5 mg PO DAILY PRN (Reason: Constipation) clotrimazole 1 % cream 1 applic topical PRN PRN (Reason: DRYNESS ON FEET) buspirone 10 mg tablet 10 mg PO TID tadalafil 20 mg tablet 20 mg PO DAILY PRN (Reason: Erectile Dysfunction) Rx Instructions: administer approximately 30min before sexual activity; do not use more than 1 dose per 24hrs fluticasone propionate 50 mcg/actuation spray,suspension 1 spray intranasal BID PRN (Reason: Allergy Symptoms) Rx Instructions: administer into each nostril finasteride 5 mg tablet 5 mg PO QDAY Qty: 90 3RF hydralazine 10 mg tablet 10 mg PO .COMPLEX Qty: 120 6RF Rx Instructions: 10 mg PO Take 1 tab three times a day and additional 1 tab if BP> 160/90; baclofen 20 mg tablet 20 mg PO TID PRN (Reason: Muscle Pain) gabapentin 600 mg tablet 300 mg PO TID hydrochlorothiazide 12.5 mg tablet 12.5 mg PO DAILY PRN (Reason: edema) Qty: 30 3RF methylprednisolone acetate [Depo-Medrol] 40 mg/mL suspension 40 mg Infiltration ONCE Qty: 1 0RF methylprednisolone acetate [Depo-Medrol] 40 mg/mL suspension 40 mg Infiltration ONCE Qty: 1 0RF ergocalciferol (vitamin D2) 1,250 mcg (50,000 unit) Capsule 1,250 mcg PO Q7D Rx Instructions: (on sundays) fluoxetine 20 mg Capsule 60 mg PO DAILY ipratropium-albuterol 0.5 mg-3 mg(2.5 mg base)/3 mL solution for nebulization 3 ml inhalation Q4H PRN (Reason: shortness of breath or wheezing) Qty: 180 0RF fluticasone propion-salmeterol [Advair Diskus] 500-50 mcg/dose blister with device 1 inh INHALATION Q12H PRN testosterone cypionate 200 mg/mL oil 200 mg IM .EVERY 21 DAYS tamsulosin 0.4 mg capsule 0.4 mg PO BID Narcan 4 mg/actuation spray,non-aerosol 4 mg intranasal Q2M PRN (Reason: opioid overdose) Qty: 2 0RF Rx Instructions: spray 1 dose into ONE nostril; alternate nostrils w each dose until help a rrives carvedilol 12.5 mg tablet 12.5 mg PO BID Qty: 60 0RF Rx Instructions: must administer with a meal/food Discharge Orders: Discharge ED (Routine); Ordered 02/02/22 Ordered By: Barrett Griffiths Referrals: Barbara Longo DO [Primary Care Provider] - 1-3 days Discharge Diet: Advance as tolerated Discharge Activity: Resume usual activity Patient Instructions: Hypertension (ED) Coding Level of Care Code ED Senior Financial Accountant for Rom Fwjaye Exam Comprehensive
[2022-02-02 02:42] VITALS: BP 180/87; PULSE 76; RESP 20; O2SAT 97
[2022-02-02] MEDS: hyDRALAzine 20 mg/mL INJ 1 mL 10 MG IVP (02:42)
[2022-02-02 02:44] LABS: Basophils # 0.1 10^3/uL (0.0-0.1); Basophils % 0.9 %; Eosinophils # 0.4 10^3/uL (0.0-0.8); Eosinophils % 4.4 %; Hematocrit 52.5 % (42.0-52.0); Lymphocytes # 1.8 10^3/uL (0.8-4.8); Lymphocytes % 23.1 %; Mean Corpuscular HGB Conc 30.5 g/dL (30.0-36.0); Mean Corpuscular Hemoglobin 28.3 pg (28.0-34.0); Mean Corpuscular Volume 92.8 fl (80-94); Mean Platelet Volume 9.5 fL (7.4-10.4); Monocytes # 1.1 10^3/uL (0.2-0.9); Monocytes % 14.5 %; Neutrophils # 4.48 10^3/uL (1.8-7.7); Neutrophils % 56.8 %; Nucleated Red Blood Cells % 0 %; Platelet Count 187 10^3/cmm (130-400); Red Blood Count 5.66 10^6/uL (4.1-5.3); Red Cell Distribution Width 16.4 % (12.1-15.1); White Blood Count 7.9 10^3/uL (4.0-10.0)
[2022-02-02 03:00] VITALS: BP 138/87; PULSE 76; O2SAT 97
[2022-02-02 03:08] LABS: Alanine Aminotransferase 15 U/L (0-41); Alkaline Phosphatase 144 U/L (40-130); Aspartate Amino Transferase 15 U/L (0-40); Blood Urea Nitrogen 17 mg/dL (8-23); Calcium 9.5 mg/dL (8.5-10.5); Carbon Dioxide 28 mmol/L (22-29); Chloride 102 mmol/L (98-107); Glomerular Filtration Rate 47.6 mL/min (90-130); Glucose 93 mg/dL (65-115); Osmolality Calculated 289 mOsm/kg (285-295); Sodium 139 mmol/L (136-145); Total Bilirubin 0.3 mg/dL (0.15-1.2)
[2022-02-02 03:17] LABS: Anion Gap 13.2 (5-19); Potassium 4.2 mmol/L (3.5-5.1)
[2022-02-02 03:30] VITALS: BP 150/92; PULSE 70; RESP 18; O2SAT 97
[2022-02-02 04:37] VITALS: BP 148/86; PULSE 75; RESP 18; O2SAT 97
== END 2022-02-02 04:38 | disposition home or self-care (01) ==
PROVIDERS: Emergency Provider Emergency Medicine; PCP Family Medicine
DX: R51.9 Headache, unspecified (principal); F17.210 Nicotine dependence, cigarettes, uncomplicated; Z95.5 Presence of coronary angioplasty implant and graft; I13.0 Hypertensive heart and chronic kidney disease with heart failure and stage 1 through stage 4 chronic kidney disease, or unspecified chronic kidney disease; N18.9 Chronic kidney disease, unspecified; I50.9 Heart failure, unspecified; J44.9 Chronic obstructive pulmonary disease, unspecified
CPT/HCPCS: 70450; 80053; 85025; 96374; 99285; J0360

== ENCOUNTER → 2022-02-08 10:14 | Outpatient (BNVA) | payer MEDICARE, OTHER, SELFPAY | PROVIDERS: PCP Family Medicine; Visit Provider Thoracic Surgery (Cardiothoracic Vascular Surgery) | DX: I96 Gangrene, not elsewhere classified (principal); L89.892 Pressure ulcer of other site, stage 2 | CPT/HCPCS: 11042; A6250 ==

== ENCOUNTER 2022-02-10 15:21 | Outpatient (CLI) | payer MEDICARE, OTHER, SELFPAY ==
[2022-02-10 16:49] LABS: Prostate Specific AG Urology 0.79 ng/mL (0-4)
== END 2022-02-10 15:22 | disposition home or self-care (01) ==
LOC: LAB 15:27
PROVIDERS: PCP Family Medicine; Visit Provider Urology
DX: N40.1 Benign prostatic hyperplasia with lower urinary tract symptoms (principal)
CPT/HCPCS: 36415; 84153

== ENCOUNTER 2022-02-16 12:56 | Outpatient (CLI) | payer MEDICARE, OTHER, SELFPAY ==
--- NOTE | 2022-02-16 13:00 | US_ITS ---
WS: [id number] Bilateral renal ultrasound, 02/16/2022 Clinical Data: Bilateral Renal Mass Comparison: Renal ultrasound, 06/23/2021 Findings: The right kidney measures 10.4 cm x 5.4 cm x 4.6 cm and the left kidney is 15.5 cm x 7.5 cm x 6.9 cm. Both kidneys are irregular. There are bilateral renal cysts. The largest right renal cyst is 3.10 x 3.15 x 3.68 cm. The largest left renal cyst is 6.3 x 7.31 x 7.69 cm. No renal masses are seen. The ab dominal aorta and inferior vena cava show no vascular abnormalities. The bladder was scanned and was not remarkable. US/US renal BI* [id number] Impression: 1. Deformity of the right kidney with multiple cysts unchanged. 2. Moderate deformity of left kidney with multiple cysts unchanged.
== END 2022-02-16 12:57 | disposition home or self-care (01) ==
LOC: RAD 12:56
PROVIDERS: PCP Family Medicine; Visit Provider Urology
DX: N28.89 Other specified disorders of kidney and ureter (principal); I96 Gangrene, not elsewhere classified; L89.892 Pressure ulcer of other site, stage 2; Q61.02 Congenital multiple renal cysts
CPT/HCPCS: 11042; 76770; A6250

== ENCOUNTER 2022-02-18 06:00 | Day surgery (SDC) | payer MEDICARE, OTHER, SELFPAY ==
[2022-02-17 16:37] VITALS: BMI 37.3
[2022-02-18] VITALS (9 sets, daily range): BP systolic 125–179; BP diastolic 73–93; PULSE 73–83; RESP 12–18; TEMP 36.3–37; O2SAT 90–97
[2022-02-18] MEDS: ketorolac 30 mg/mL INJ IVP (06:29)
[2022-02-18] MEDS: acetaminophen 1,000 MG/100 ML PIGGYBACK 400 MG IV (06:29)
[2022-02-18] MEDS: sodium chloride 0.9% 1,000 ML 30 ML IV (06:31)
[2022-02-18] MEDS: ceFAZolin 2,000 MG in sodium chloride 0.9% (plus) 50 ML 100 MG IV (07:00)
--- NOTE | 2022-02-18 07:00 | W.PM.OPSUD ---
Surgery/Procedure H&P Update DATE OF PROCEDURE: February 18, 2022 DATE H&P PERFORMED: 01/25/22 CHANGES TO PREVIOUS DOCUMENTATION: None PREOP DIAGNOSIS: Right carpal tunnel syndrome, right cubital tunnel syndrome right volar sandra PRIMARY INDICATION FOR PROCEDURE: Right carpal tunnel syndrome Right cubital tunnel syndrome Right volar ganglion cyst PLANNED PROCEDURE: Operation Date: 02/18/22 07:00 Proposed Procedures p Right carpal tunnel release, Cubital tunnel release and volar ganglion cyst excision 09107, 06803, 67967 G56.0,G56.21(Right) - DO randy Jaime Cubital Tunnel Release(Right) - DO randy Jaime Excision Of Ganglion Cyst(Right) - Serjio Raygoza DO
--- NOTE | 2022-02-18 07:21 | ANES.PREANE2 ---
Pre-Anesthetic Assessment Height/Weight: Height 1.83 m Weight 124.738 kg Temp Pulse Resp BP Pulse Ox O2 Del Method 98.6 F 76 16 179/93 93 02/18/22 06:13 02/18/22 06:13 02/18/22 06:13 02/18/22 06:13 02/18/22 06:13 02/18/22 06:13 Preop Diagnosis: Right carpal tunnel syndrome, right cubital tunnel syndrome right volar sandra Operation Date: 02/18/22 07:00 Proposed Procedures p Right carpal tunnel release, Cubital tunnel release and volar ganglion cyst excision 52910, 13583, 81661 G56.0,G56.21(Right) - Serjio Idalmis, DO s Cubital Tunnel Release(Right) - Serjio Boundary, DO s Excision Of Ganglion Cyst(Right) - Serjio Boundary DO Familial anesthetic complications: none Was Beta Trevor taken within 24 hours: Yes Was Clonidine taken within 24 hours: N/A Last intake: Intake Last Liquid Date 02/17/22 Last Liquid Time 22:00 Last Solid Date 02/17/22 Last Solid Time 22:00 Social Tobacco and No alcohol Exam alert, oriented x 3 and regular rate & rhythm Airway Submandibular: within normal limits Cervical ROM: within normal limits Mallampati: Class II Dentition: false Pulmonary Chronic Obstructive Pulmonary Disease CV/HEM Congestive Heart Failure, Hypertension and Peripheral Vascular Disease Chronic Renal Insufficiency GI Gastroesophageal Reflux Disease Metabolic Morbid Obesity Neuropsych Neuropathy Anesthetic Plan ASA status: 3 Anesthesia: General Medications/Allergies Home Medications Medication Instructions Recorded Confirmed Last Taken Type albuterol sulfate 90 mcg/actuation 2 puff inhalation Q6H PRN 03/05/19 02/17/22 09/16/20 History aerosol inhaler (Ventolin HFA) Shortness Of Breath bisacodyl 5 mg tablet,delayed 5 mg PO DAILY PRN Constipation 03/05/19 02/17/22 09/16/20 History release (Dulcolax (bisacodyl)) lovastatin 40 mg tablet 40 mg PO DAILY 03/05/19 02/18/22 02/17/22 History oxycodone-acetaminophen 10 mg-325 1 tab PO Q4H PRN Pain 03/05/19 02/18/22 02/18/22 History mg tablet (Percocet) ergocalciferol (vitamin D2) 1,250 1,250 mcg PO Q7D 05/25/20 02/18/22 02/13/22 History mcg (50,000 unit) capsule fluoxetine 20 mg capsule 60 mg PO DAILY 05/25/20 02/18/22 02/17/22 History buspirone 10 mg tablet 10 mg PO TID 06/12/20 02/18/22 02/17/22 History clotrimazole 1 % topical cream 1 applic topical PRN PRN DRYNESS 06/12/20 02/17/22 09/14/20 History ON FEET tadalafil 20 mg tablet 20 mg PO DAILY PRN Erectile 06/12/20 02/17/22 09/14/20 History Dysfunction fluticasone propionate 50 1 spray intranasal BID PRN Allergy 10/28/20 02/17/22 Unknown History mcg/actuation nasal Symptoms spray,suspension ipratropium 0.5 mg-albuterol 3 mg 3 ml inhalation Q4H PRN shortness 11/07/20 02/17/22 Unknown Rx (2.5 mg base)/3 mL nebulization of breath or wheezing #180 mL soln tamsulosin 0.4 mg capsule 0.4 mg PO BID 06/23/21 02/18/22 02/17/22 History testosterone cypionate 200 mg/mL 200 mg IM .EVERY 21 DAYS 06/23/21 02/17/22 Unknown History intramuscular oil naloxone 4 mg/actuation nasal 4 mg intranasal Q2M PRN opioid 06/27/21 02/17/22 Unknown Rx spray (Narcan) overdose #2 ea finasteride 5 mg tablet 5 mg PO QDAY #90 tabs 07/29/21 02/18/22 02/17/22 Rx fluticasone 500 mcg-salmeterol 50 1 inh inhalation Q12H PRN sob 08/05/21 02/18/22 Unknown History mcg/dose blistr powdr for inhalation (Advair Diskus) hydralazine 10 mg tablet 10 mg PO .COMPLEX #120 tabs 08/05/21 02/18/22 02/18/22 Rx carvedilol 12.5 mg tablet 12.5 mg PO BID #60 tabs 11/28/21 02/18/22 02/18/22 Rx baclofen 20 mg tablet 20 mg PO TID PRN Muscle Pain 01/31/22 02/17/22 Unknown History gabapentin 600 mg tablet 300 mg PO TID 01/31/22 02/18/22 02/17/22 History hydrochlorothiazide 12.5 mg tablet 12.5 mg PO DAILY PRN edema #30 tabs 01/31/22 02/18/22 02/18/22 Rx esomeprazole magnesium 40 mg 40 mg PO BID 02/17/22 02/18/22 02/17/22 History capsule,delayed release Allergies Allergy/AdvReac Type Severity Reaction Status Date / Time adhesive tape Allergy Mild ALGY-Rash Verified 02/17/22 16:36 ciprofloxacin Allergy Unknown Unknown Verified 02/17/22 16:36 Forced Air Heat Allergy Mild Difficulty Uncoded 02/17/22 16:36 breathing; dries up sinuses. Current Medications Generic Name Dose Route Start Last Admin Trade Name Freq PRN Reason Stop Dose Admin Sodium Chloride 1,000 mls @ 30 mls/hr 02/18/22 06:15 02/18/22 06:31 Sodium Chloride 0.9% IV 02/19/22 06:14 30 mls/hr .Q24H [place] Administration PFSH Anesthesia Medical History Alcoholism Aortic stenosis BPH loc w urin obs/LUTS CHF (congestive heart failure) Chronic pain CKD (chronic kidney disease) CO2 narcosis Colon polyps COPD (chronic obstructive pulmonary disease) CRI (chronic renal insufficiency) Cubital tunnel syndrome, bilateral DDD (degenerative disc disease) Depression with anxiety Diverticulosis DJD (degenerative joint disease) Esophageal candidiasis Ganglion cyst of volar aspect of right wrist GERD (gastroesophageal reflux disease) HTN (hypertension) LVH (left ventricular hypertrophy) Obesity Pressure ulcers of skin of multiple topographic sites Sleep apnea Venous (peripheral) insufficiency Surgical History History of aortic aneurysm repair History of coronary angioplasty with insertion of stent History of nasal surgery History of right knee joint replacement Hx of tonsillectomy Previous back surgery x 4 Family History Mother , in early 70's Heart attack Father No problems noted. Other CAD (coronary artery disease) Social History Smoking and tobacco status: current every day smoker cigarettes Packs smoked per day: 3 Alcohol intake: current Alcohol intake frequency: few times a month Alcohol type: beer Household members: significant other Marital status: Marital status details: No longer with his in last 5 years, who takes care of his financials Current occupational status: disabled History of recent travel: No Data Anesthesia Cardiac Studies: Echocardiogram 06/23/21 Echocardiogram Ultrasound 05/25/20 Sestamibi Stress Test (Cardiology) 05/25/20
[2022-02-18] MEDS: lidocaine 2% INJ 20 mL 100 ML INJECTION (07:41)
--- NOTE | 2022-02-18 09:51 | P.OP_ITS ---
Brief Operative Note Date of procedure: 02/22/22 Pre-op diagnosis: Right carpal tunnel syndrome, right cubital tunnel syndrome, right volar ga Post-op diagnosis: same (Right volar ganglion cyst) Procedure Done: Right carpal tunnel release Right cubital tunnel release Right volar ganglion cyst excision Surgeon: Serjio Raygoza Estimated blood loss (mL): 20 Complications: None Post-op Plan: Patient taken to PACU in stable condition recovering well. Will receive appropriate discharge instructions as well as pain medication postoperatively. Patient will follow-up with me in the office in 2 weeks. Will be weightbearing as tolerated to the right upper extremity. Patient understands may contact the office for any questions or concerns Condition: stable Disposition: same day Coding Level of Care Code Acute Java Application Developer for Rom Gupta
--- NOTE | 2022-02-18 09:51 | PM.PACU ---
PACU note Narrative: Patient taken to PACU in stable condition. Patient recovering well. Patient sensation intact light touch distally. Distal pulses palpable prior to dressing application. Patient able to wiggle fingers. Sensation intact light touch distally. Dressing clean dry and intact Exam: awake Disposition: discharged
--- NOTE | 2022-02-18 09:51 | PM.OP ---
Operative Report Date of procedure: February 18, 2022 Pre-op diagnosis: Preop Diagnosis Right carpal tunnel syndrome, right cubital tunnel syndrome right volar sandra Post-op diagnosis: Right carpal tunnel syndrome Right cubital tunnel syndrome Right volar ganglion cyst Procedure done: Right carpal tunnel release Right cubital tunnel release Right wrist volar ganglion cyst excision Specimens removed/disposition: Right wrist volar ganglion cyst excision sent for pathology Surgeon: Serjio Raygoza DO Estimated blood loss: 20 mL 93 minutes IV fluids: See anesthesia record Complications: None Findings: See operative report narrative Condition: stable Disposition: same day Brief History: Patient's been seen and worked up in the outpatient setting and findings consistent with preoperative diagnosis. Patient has right carpal tunnel syndrome as well as right cubital tunnel syndrome which has been worked up in the outpatient setting has physical exam findings consistent with this as well as confirmatory EMG nerve conduction study consistent with bilateral carpal tunnel and cubital tunnel syndrome. Like to start with the right upper extremity first. He also has findings consistent with a right volar ganglion cyst that is been ongoing and severely painful. This is ebbed and flowed in size but has continued to maintain these tried conservative treatment at this point time he would like this to be addressed while he is having his carpal tunnel and cubital tunnel surgery. We talked about treatment options as far as nonoperative and operative intervention. Understands risk benefits complication alternatives surgical nonsurgical treatment options. Understanding his risks he agrees to proceed with surgical intervention for right carpal tunnel release, right cubital tunnel release, right volar ganglion cyst excision. Understanding these risks he agrees to proceed with surgery. Consent obtained in office. Procedure: Patient seen evaluate in the preoperative holding area. Consent was reviewed and signed with patient. Correct extremity marked. Patient seen evaluated by anesthesia department once cleared for surgery was then taken back to the operative suite placed in supine position all bony prominences well-padded patient properly secured to bed. Right upper extremity placed onto a right armboard. Nonsterile tourniquet applied right upper arm. Patient then underwent anesthesia per the anesthesia department. Patient's right upper extremity was then prepped and draped in standard orthopedic fashion. Final timeout performed. Patient received appropriate preoperative antibiotics. #Tourniquet was used exsanguinate the right upper extremity. Tourniquet was insufflated to 250 mmHg. I started with the carpal tunnel release first. I made a standard open carpal tunnel release starting with the distalmost extent in the palm at the Mc's cardinal line and the incision line was made in line with the fourth ray and ended just distal to the wrist crease. Sharp scalpel incision was made through skin and subcutaneous tissue I then utilizing self retainer then began to dissect with dissection scissors split longitudinally the palmar fascia. Next I then utilizing my records management assistant Ramandeep retractors subsequently utilizing scalpel feathered through the palmaris brevis as well as through the transverse carpal ligament distally. Once I encountered the floor of the transverse carpal ligament and entered into the carpal tunnel I then switched to dissection scissors. Carefully released the distal extent of the transverse carpal ligament to the palmar fat. Care was to protect the recurrent branch and not injured this during this part of the case. Next I then placed a Macomb underneath the transverse carpal ligament proximally to protect the nerve in the carpal tunnel contents. And then I subsequently under loupe magnification utilize my dissection scissors to release the transverse carpal ligament into the antebrachial fascia under direct visualization with care to keep my scissors with a curved ulnarly away from the palmar cutaneous branch. The transverse carpal was then completely decompressed proximally and a Macomb was then placed both distally and proximally throughout the carpal tunnel and had complete decompression of the nerve. The nerve did appear to have hourglass shape as it went through the carpal tunnel. With significant irritation noted around the nerve. No masses were noted within the contents of the carpal tunnel. This completed the carpal tunnel release and then I subsequently irrigated the wound bed and placed a wet Ray-Amalia into the incision for later closure. Next I made a separate incision and began with my dissection for the right volar ganglion cyst. This was directly over the palpable radial artery. I made a direct longitudinal incision centering over the volar ganglion cyst. Sharp scalpel incision was made through skin. I switched to dissection scissors and subsequently identified the FCR as my landmark and then subsequently spread and dissected out the radial artery. It was clearly evident that the volar ganglion cyst was adhered right at the bifurcation of the palmar and dorsal branch of the radial artery. I subsequently utilized Vesseloops to protect the radial artery throughout the case as well as to help with some traction for dissection. I switched to microdissection tools to help carefully dissect the volar ganglion cyst off of the radial artery with direct loupe magnification. Once the artery was completely mobilized off the cyst I then subsequently dissected circumferentially around the cyst and identified it at the stalk going into the volar wrist capsule. This was then severed at the base and utilizing bipolar electrocautery coagulated the entire capsule to prevent any further recurrence. This was a complete excision of the volar ganglion cyst. The cyst was then sent for pathology. I then thoroughly irrigated the wound bed exact hemostasis was maintained throughout the dissection. A wet Ray-Amalia was then placed into this area and I subsequently transitioned to the cubital tunnel release. Marked out the landmarks of the right elbow of the medial epicondyle and olecranon and made a curvilinear incision following the course of the ulnar nerve at the medial aspect of the elbow. Sharp scalpel incision was made through skin and subcutaneous tissue. Next I switched to Littler dissection scissors and spread in plane of the medial antebrachial cutaneous nerve branching which was protected throughout this part of the dissection. Then I directly came down over the fascia and identified the 2 heads of the FCU fascia and split this right in the middle and subsequently identified my ulnar nerve distally. This was then completely released distally under direct visualization and loupe magnification. Once the nerve was then identified I then subsequently tracked this proximally and released this through Arauz's ligament as well as complete decompression of the nerve proximally all the way past the intermuscular septum. The nerve was completely released and decompressed the area of entrapment there was severely noted was at the Arauz's ligament. The nerve had noticeable scarring and irritation noted around the Arauz's ligament. This point time the nerve completely decompressed both proximally and distally. I then took the elbow through range of motion and there was no instability or subluxating of the ulnar nerve. This completed my dissection. Next the wound bed was thoroughly irrigated. Tourniquet was deflated. Hemostasis was satisfactory at the cubital tunnel release surgery site. At the volar ganglion cyst site the radial artery was intact with no pulsatile bleeding and had a good firm pulse. I then inspected the carpal tunnel incision and this was found to have satisfactory hemostasis and all this was maintained through bipolar electrocautery. At this point time I sequentially closed cubital tunnel site with 3-0 Vicryl suture in a running horizontal mattress nylon stitch. The wrist was then closed with 3-0 Vicryl and running nylon stitch. The carpal tunnel release surgery was then closed in standard interrupted mattress fashion. Dressing was Xeroform 4 x 4's ABD Curlex soft roll and an Hu wrap has a bulky soft dressing. Patient was then awakened from anesthesia and taken to PACU in stable condition. Disposition: Patient taken to PACU in stable condition recovering well. Patient will receive appropriate discharge instructions as well as pain medication postoperatively. We will follow-up with me in the office in 2 weeks. Patient understands agrees with current plan. All questions answered. He does have findings consistent with left carpal tunnel and left cubital tunnel syndrome and would like this done after his right side is healed. We will see him in the office in 2 weeks.
[2022-02-18] MEDS: oxyCODONE-APAP 10-325 mg Tablet 1 TAB PO (10:17)
--- NOTE | 2022-02-18 14:45 | ANE.PACU2 ---
Inpatient post-anesthesia follow up: Airway intact: Yes Vital signs: Temperature 97.9 F Pulse Rate 76 Respiratory Rate 16 Blood Pressure 142/80 Pulse Oximetry 93 Oxygen Delivery Me thod Room Air Oxygen Flow Rate 10 Fraction of Inspir ed Oxygen Hydration adequate: Yes Nausea and vomiting: No Pain level: 3 Mental status: Baseline
== END 2022-02-18 10:40 | disposition home or self-care (01) ==
PROVIDERS: PCP Family Medicine; Visit Provider Student in an Organized Health Care Education/Training Program
PROC: (CPT 64721; principal; 2022-02-18 07:00)
PROC: (CPT 64718; 2022-02-18 07:00)
PROC: (CPT 25111; 2022-02-18 07:00)
DX: G56.01 Carpal tunnel syndrome, right upper limb (principal); G56.21 Lesion of ulnar nerve, right upper limb; M67.431 Ganglion, right wrist; J44.9 Chronic obstructive pulmonary disease, unspecified; I73.9 Peripheral vascular disease, unspecified; K21.9 Gastro-esophageal reflux disease without esophagitis; E66.01 Morbid (severe) obesity due to excess calories; Z68.37 Body mass index [BMI] 37.0-37.9, adult; N40.1 Benign prostatic hyperplasia with lower urinary tract symptoms; N13.8 Other obstructive and reflux uropathy; I13.0 Hypertensive heart and chronic kidney disease with heart failure and stage 1 through stage 4 chronic kidney disease, or unspecified chronic kidney disease; N18.9 Chronic kidney disease, unspecified; I50.9 Heart failure, unspecified; F17.210 Nicotine dependence, cigarettes, uncomplicated
CPT/HCPCS: 25111; 64718; 64721; 88304; J0131; J0690; J1100; J1885; J2370; J2405; J2704; J2795; J3010; J7030

== ENCOUNTER → 2022-02-23 13:25 | Outpatient (BNVA) | payer MEDICARE, OTHER, SELFPAY | PROVIDERS: PCP Family Medicine; Visit Provider Thoracic Surgery (Cardiothoracic Vascular Surgery) | DX: I96 Gangrene, not elsewhere classified (principal); L89.892 Pressure ulcer of other site, stage 2 | CPT/HCPCS: 11042; A6250 ==

== ENCOUNTER → 2022-03-07 13:11 | Outpatient (BNVA) | payer MEDICARE, OTHER, SELFPAY | PROVIDERS: PCP Family Medicine; Visit Provider Student in an Organized Health Care Education/Training Program | DX: G56.23 Lesion of ulnar nerve, bilateral upper limbs (principal); G56.03 Carpal tunnel syndrome, bilateral upper limbs; M67.431 Ganglion, right wrist | CPT/HCPCS: 99214 ==

== ENCOUNTER 2022-03-15 08:18 | Day surgery (SDC) | payer MEDICARE, OTHER, SELFPAY ==
[2022-03-15] VITALS (7 sets, daily range): BP systolic 140–191; BP diastolic 79–108; PULSE 67–90; RESP 16–18; TEMP 36.1–36.8; O2SAT 92–96
--- NOTE | 2022-03-15 08:44 | W.PM.OPSUD ---
Surgery/Procedure H&P Update DATE OF PROCEDURE: March 15, 2022 DATE H&P PERFORMED: 03/07/22 CHANGES TO PREVIOUS DOCUMENTATION: None PREOP DIAGNOSIS: Left carpal tunnel syndrome, left cubital tunnel syndrome PRIMARY INDICATION FOR PROCEDURE: Left carpal tunnel syndrome, left cubital tunnel syndrome PLANNED PROCEDURE: Operation Date: 03/15/22 11:35 Proposed Procedures p Cubital tunnel release 56924 Carpal Tunnel Release 33886,G56.0,G56.20(Left) - Serjio Raygoza DO s Carpal Tunnel Release(Left) - Serjio Raygoza DO
[2022-03-15] MEDS: acetaminophen 1,000 MG/100 ML PIGGYBACK 400 MG IV (09:25)
[2022-03-15] MEDS: sodium chloride 0.9% 1,000 ML 30 ML IV (09:26)
[2022-03-15] MEDS: ketorolac 30 mg/mL INJ IVP (09:27)
[2022-03-15] MEDS: ceFAZolin 2,000 MG in sodium chloride 0.9% (plus) 50 ML 100 MG IV (09:52)
--- NOTE | 2022-03-15 11:09 | PM.OP2 ---
Brief Operative Note Date of procedure: 03/19/22 Pre-op diagnosis: Left carpal tunnel syndrome, left cubital tunnel syndrome Post-op diagnosis: same Procedure Done: Left carpal tunnel release Left cubital tunnel release Surgeon: Serjio Raygoza Estimated blood loss (mL): 5 Complications: None Post-op Plan: Patient taken to PACU in stable condition recovering well. Patient is dressing clean dry intact. Will receive appropriate discharge instructions as well as pain medication postoperatively. We will follow-up with me in the office in 2 weeks. Understand if they have any questions or concerns and contact the office. Condition: stable Disposition: same day Coding Level of Care Code Acute Code for Rom Gupta
--- NOTE | 2022-03-15 11:10 | PM.PACU ---
PACU note Narrative: Patient was seen evaluated in the PACU and recovering well. Dressings on in place clean dry and intact. Patient is able to wiggle fingers. Fingertips warm well-perfused brisk capillary refill less than 2 seconds. Patient received local anesthesia the carpal tunnel incision site. Exam: awake Disposition: discharged
--- NOTE | 2022-03-15 11:10 | PM.OP ---
Operative Report Date of procedure: March 15, 2022 Pre-op diagnosis: Preop Diagnosis Left carpal tunnel syndrome, left cubital tunnel syndrome Post-op diagnosis: Same Procedure done: Left carpal tunnel release Left cubital tunnel release Surgeon: Serjio Raygoza DO Estimated blood loss: 5 mL 25 minutes IV fluids: 300 mL IV fluids Complications: None Findings: See operative report narrative Condition: stable Disposition: same day Brief History: Patient's been seen and worked up in the outpatient setting and findings consistent with preoperative diagnosis.? Patient has left carpal tunnel syndrome as well as left cubital tunnel syndrome which has been worked up in the outpatient setting has physical exam findings consistent with this as well as confirmatory EMG nerve conduction study consistent with bilateral carpal tunnel and cubital tunnel syndrome.? Patient is already underwent surgery for the right upper extremity for carpal tunnel release, cubital tunnel release and right volar ganglion cyst excision. He is recovered well in this time. An outpatient follow-up and discussion he like to proceed with left carpal tunnel release and left cubital tunnel release. We talked about treatment options as far as nonoperative and operative intervention.? Understands risk benefits complication alternatives surgical nonsurgical treatment options.? Understanding his risks he agrees to proceed with surgical intervention for left carpal tunnel release, left cubital tunnel release.? Understanding these risks he agrees to proceed with surgery.? Consent obtained in office. Procedure: Patient seen evaluate in the preoperative holding area.? Consent was reviewed and signed with patient.? Correct extremity marked.? Patient seen evaluated by anesthesia department once cleared for surgery was then taken back to the operative suite placed in supine position all bony prominences well-padded patient properly secured to bed.? Left upper extremity placed onto a left armboard.? Nonsterile tourniquet applied left upper arm.? Patient then underwent anesthesia per the anesthesia department.? Patient's left upper extremity was then prepped and draped in standard orthopedic fashion.? Final timeout performed.? Patient received appropriate preoperative antibiotics. Esmarch was used exsanguinate the left upper extremity.? Tourniquet was insufflated to 250 mmHg. I started with the carpal tunnel release first.? I made a standard open carpal tunnel release starting with the distal most extent in the palm at the Mc's cardinal line and the incision line was made in line with the fourth ray and ended just distal to the wrist crease.? Sharp scalpel incision was made through skin and subcutaneous tissue I then utilizing self retainer then began to dissect with dissection scissors split longitudinally the palmar fascia.? Next I then utilizing my human resources benefits assistant Ramandeep retractors subsequently utilizing scalpel feathered through the palmaris brevis as well as through the transverse carpal ligament distally.? Once I encountered the floor of the transverse carpal ligament and entered into the carpal tunnel I then switched to dissection scissors.? Carefully released the distal extent of the transverse carpal ligament to the palmar fat.? Care was to protect the recurrent branch and not injured this during this part of the case.? Next I then placed a Mercer underneath the transverse carpal ligament proximally to protect the nerve in the carpal tunnel contents.? And then I subsequently under loupe magnification utilize my dissection scissors to release the transverse carpal ligament into the antebrachial fascia under direct visualization with care to keep my scissors with a curved ulnarly away from the palmar cutaneous branch.? The transverse carpal was then completely decompressed proximally and a Mercer was then placed both distally and proximally throughout the carpal tunnel and had complete decompression of the nerve.? The nerve did appear to have hourglass shape as it went through the carpal tunnel.? With significant irritation noted around the nerve.? No masses were noted within the contents of the carpal tunnel.? This completed the carpal tunnel release and then I subsequently irrigated the wound bed and placed a wet Ray-Amalia into the incision for later closure. Next marked out the landmarks of the right elbow of the medial epicondyle and olecranon and made a curvilinear incision following the course of the ulnar nerve at the medial aspect of the elbow.? Sharp scalpel incision was made through skin and subcutaneous tissue.? Next I switched to Littler dissection scissors and spread in plane of the medial antebrachial cutaneous nerve branching which was protected throughout this part of the dissection.? Then I directly came down over the fascia and identified the 2 heads of the FCU fascia and split this right in the middle and subsequently identified my ulnar nerve distally.? This was then completely released distally under direct visualization and loupe magnification.? Once the nerve was then identified I then subsequently tracked this proximally and released this through Arauz's ligament as well as complete decompression of the nerve proximally all the way past the intermuscular septum.? The nerve was completely released and decompressed the area of entrapment there was severely noted was at the Arauz's ligament.? The nerve had noticeable scarring and irritation noted around the Arauz's ligament.? This point time the nerve completely decompressed both proximally and distally.? I then took the elbow through range of motion and there was no instability or subluxating of the ulnar nerve.? This completed my dissection.? Next the wound bed was thoroughly irrigated.? Tourniquet was deflated.? Hemostasis was satisfactory at the cubital tunnel release surgery site. I then inspected the carpal tunnel incision and this was found to have satisfactory hemostasis and all this was maintained through bipolar electrocautery.? At this point time I sequentially closed cubital tunnel site with 3-0 Vicryl suture in a running horizontal mattress nylon stitch.? ? The carpal tunnel release surgery was then closed in standard interrupted mattress fashion.? Dressing was Xeroform 4 x 4's ABD Curlex soft roll and an Hu wrap has a bulky soft dressing.? Patient was then awakened from anesthesia and taken to PACU in stable condition. Disposition: Patient taken to PACU in stable condition recovering well.? Patient will receive appropriate discharge instructions as well as pain medication postoperatively.? We will follow-up with me in the office in 2 weeks.? Patient understands agrees with current plan.? All questions answered.? He understands if any questions or concerns and contact the office for follow-up appointment..
--- NOTE | 2022-03-15 11:29 | ANES.PREANE2 ---
Pre-Anesthetic Assessment Height/Weight: Height 1.83 m Weight 127.006 kg Temp Pulse Resp BP Pulse Ox O2 Del Method O2 Flow Rate 97.0 F L 72 18 153/87 96 6 03/15/22 11:15 03/15/22 11:15 03/15/22 11:15 03/15/22 11:15 03/15/22 11:15 03/15/22 11:15 03/15/22 11:05 Preop Diagnosis: Left carpal tunnel syndrome, left cubital tunnel syndrome Operation Date: 03/15/22 11:35 Proposed Procedures p Cubital tunnel release [id number] Carpal Tunnel Release [id number],G56.0,G56.20(Left) - Serjio aRygoza DO s Carpal Tunnel Release(Left) - Serjio Raygoza DO Familial anesthetic complications: none Was Beta Trevor taken within 24 hours: Yes Was Clonidine taken within 24 hours: N/A Last intake: Intake Last Liquid Date 03/14/22 Last Liquid Time 23:30 Last Solid Date 03/14/22 Last Solid Time 19:00 Social Alcohol and Tobacco Exam alert, oriented x 3 and regular rate & rhythm Airway Submandibular: within normal limits Cervical ROM: within normal limits Mallampati: Class II Dentition: false Pulmonary Chronic Obstructive Pulmonary Disease CV/HEM Congestive Heart Failure, Hypertension and Peripheral Vascular Disease GI Gastroesophageal Reflux Disease Metabolic Hyperlipidemia Musc/skel Lower Back Pain and Osteoarthritis/DJD Neuropsych Anxiety, Depression and Neuropathy Anesthetic Plan ASA status: 3 Anesthesia: General Medications/Allergies Home Medications Medication Instructions Recorded Confirmed Last Taken Type bisacodyl 5 mg tablet,delayed 5 mg PO DAILY PRN Constipation 03/05/19 03/07/22 09/16/20 History release (Dulcolax (bisacodyl)) lovastatin 40 mg tablet 40 mg PO DAILY 03/05/19 03/15/22 1 Day Ago History ~03/14/22 ergocalciferol (vitamin D2) 1,250 1,250 mcg PO Q7D 05/25/20 03/15/22 03/13/22 History mcg (50,000 unit) capsule fluoxetine 20 mg capsule 60 mg PO DAILY 05/25/20 03/15/22 1 Day Ago History ~03/14/22 buspirone 10 mg tablet 10 mg PO TID 06/12/20 03/15/22 1 Day Ago History ~03/14/22 tadalafil 20 mg tablet 20 mg PO DAILY PRN Erectile 06/12/20 03/15/22 09/14/20 History Dysfunction fluticasone propionate 50 1 spray intranasal BID PRN Allergy 10/28/20 03/15/22 Unknown History mcg/actuation nasal Symptoms spray,suspension ipratropium 0.5 mg-albuterol 3 mg 3 ml inhalation Q4H PRN shortness 11/07/20 03/15/22 Unknown Rx (2.5 mg base)/3 mL nebulization of breath or wheezing #180 mL soln testosterone cypionate 200 mg/mL 200 mg IM .EVERY 21 DAYS 06/23/21 03/07/22 Unknown History intramuscular oil naloxone 4 mg/actuation nasal 4 mg intranasal Q2M PRN opioid 06/27/21 03/15/22 Unknown Rx spray (Narcan) overdose #2 ea finasteride 5 mg tablet 5 mg PO QDAY #90 tabs 07/29/21 03/15/22 1 Day Ago Rx ~03/14/22 fluticasone 500 mcg-salmeterol 50 1 inh inhalation Q12H PRN sob 08/05/21 03/15/22 Unknown History mcg/dose blistr powdr for inhalation (Advair Diskus) hydralazine 10 mg tablet 10 mg PO .COMPLEX #120 tabs 08/05/21 03/15/22 1 Day Ago Rx ~03/14/22 carvedilol 12.5 mg tablet 12.5 mg PO BID #60 tabs 11/28/21 03/15/22 1 Day Ago Rx ~03/14/22 baclofen 20 mg tablet 20 mg PO TID PRN Muscle Pain 01/31/22 03/15/22 1 Day Ago History ~03/14/22 gabapentin 600 mg tablet 300 mg PO TID 01/31/22 03/15/22 1 Day Ago History ~03/14/22 hydrochlorothiazide 12.5 mg tablet 12.5 mg PO DAILY PRN edema #30 tabs 01/31/22 03/15/22 02/18/22 Rx esomeprazole magnesium 40 mg 40 mg PO BID 02/17/22 03/15/22 1 Day Ago History capsule,delayed release ~03/14/22 tamsulosin 0.4 mg capsule See Rx Instructions .Route 02/24/22 03/15/22 1 Day Ago Rx .COMPLEX #180 caps ~03/14/22 ondansetron 4 mg disintegrating 4 mg PO DAILY 5 days #5 tabs 03/15/22 Unknown Rx tablet oxycodone-acetaminophen 10 mg-325 1 tab PO Q4H PRN Pain 5 days #20 03/15/22 Unknown Rx mg tablet (Percocet) tabs Allergies Allergy/AdvReac Type Severity Reaction Status Date / Time adhesive tape Allergy Mild ALGY-Rash Verified 03/15/22 08:29 ciprofloxacin Allergy Unknown Unknown Verified 03/15/22 08:29 Forced Air Heat Allergy Mild Difficulty Uncoded 03/15/22 08:29 breathing; dries up sinuses. Current Medications Generic Name Dose Route Start Last Admin Trade Name Freq PRN Reason Stop Dose Admin Sodium Chloride 1,000 mls @ 30 mls/hr 03/15/22 08:30 03/15/22 09:26 Sodium Chloride 0.9% IV 03/16/22 08:29 30 mls/hr .Q24H [place] Administration PFSH Anesthesia Medical History Alcoholism Aortic stenosis BPH loc w urin obs/LUTS CHF (congestive heart failure) Chronic pain CKD (chronic kidney disease) CO2 narcosis Colon polyps COPD (chronic obstructive pulmonary disease) CRI (chronic renal insufficiency) Cubital tunnel syndrome, bilateral DDD (degenerative disc disease) Depression with anxiety Diverticulosis DJD (degenerative joint disease) Esophageal candidiasis Ganglion cyst of volar aspect of right wrist GERD (gastroesophageal reflux disease) HTN (hypertension) LVH (left ventricular hypertrophy) Obesity Pressure ulcers of skin of multiple topographic sites Sleep apnea Venous (peripheral) insufficiency Surgical History History of aortic aneurysm repair History of coronary angioplasty with insertion of stent History of nasal surgery History of right knee joint replacement Hx of tonsillectomy Previous back surgery x 4 Family History Mother , in early 70's Heart attack Father No problems noted. Other CAD (coronary artery disease) Social History Smoking and tobacco status: current every day smoker cigarettes Packs smoked per day: 3 Alcohol intake: current Alcohol intake frequency: few times a month Alcohol type: beer Household members: significant other Marital status: Marital status details: No longer with his in last 5 years, who takes care of his financials Current occupational status: disabled History of recent travel: No Data Anesthesia Cardiac Studies: Echocardiogram 06/23/21 Echocardiogram Ultrasound 05/25/20 Sestamibi Stress Test (Cardiology) 05/25/20
--- NOTE | 2022-03-15 15:59 | ANE.PACU2 ---
Inpatient post-anesthesia follow up: Airway intact: Yes Vital signs: Temperature 97 F Pulse Rate 74 Respiratory Rate 18 Blood Pressure 153/79 Pulse Oximetry 94 Oxygen Delivery Me thod Room Air Oxygen Flow Rate 6 Fraction of Inspir ed Oxygen Hydration adequate: Yes Nausea and vomiting: No Pain level: 3 Mental status: Baseline
== END 2022-03-15 12:15 | disposition home or self-care (01) ==
PROVIDERS: PCP Family Medicine; Visit Provider Student in an Organized Health Care Education/Training Program
PROC: (CPT 64718; principal; 2022-03-15 11:25)
PROC: (CPT 64721; 2022-03-15 11:25)
DX: G56.02 Carpal tunnel syndrome, left upper limb (principal); G56.22 Lesion of ulnar nerve, left upper limb; J44.9 Chronic obstructive pulmonary disease, unspecified; I13.0 Hypertensive heart and chronic kidney disease with heart failure and stage 1 through stage 4 chronic kidney disease, or unspecified chronic kidney disease; N18.9 Chronic kidney disease, unspecified; I50.9 Heart failure, unspecified; I73.9 Peripheral vascular disease, unspecified; K21.9 Gastro-esophageal reflux disease without esophagitis; E78.5 Hyperlipidemia, unspecified; F41.9 Anxiety disorder, unspecified; F32.A Depression, unspecified; N40.1 Benign prostatic hyperplasia with lower urinary tract symptoms; N13.8 Other obstructive and reflux uropathy; E66.9 Obesity, unspecified; Z68.38 Body mass index [BMI] 38.0-38.9, adult; G47.30 Sleep apnea, unspecified; F17.210 Nicotine dependence, cigarettes, uncomplicated
CPT/HCPCS: 64718; 64721; J0131; J0690; J1100; J1885; J2405; J2704; J2795; J3010; J7030

== ENCOUNTER → 2022-03-16 11:19 | Outpatient (BNVA) | payer MEDICARE, OTHER, SELFPAY | PROVIDERS: PCP Family Medicine; Visit Provider Thoracic Surgery (Cardiothoracic Vascular Surgery) | DX: I96 Gangrene, not elsewhere classified (principal); L89.892 Pressure ulcer of other site, stage 2 | CPT/HCPCS: 11042; A6250 ==

== ENCOUNTER → 2022-03-23 09:37 | Outpatient (BNVA) | payer MEDICARE, OTHER, SELFPAY | PROVIDERS: PCP Family Medicine; Visit Provider Thoracic Surgery (Cardiothoracic Vascular Surgery) | DX: I96 Gangrene, not elsewhere classified (principal); L89.892 Pressure ulcer of other site, stage 2 | CPT/HCPCS: 11042; A6250 ==

== ENCOUNTER → 2022-03-30 09:36 | Outpatient (BNVA) | payer MEDICARE, OTHER, SELFPAY | PROVIDERS: PCP Family Medicine; Visit Provider Thoracic Surgery (Cardiothoracic Vascular Surgery) | DX: I96 Gangrene, not elsewhere classified (principal); L89.892 Pressure ulcer of other site, stage 2 | CPT/HCPCS: 11042 ==

== ENCOUNTER → 2022-04-06 09:34 | Outpatient (BNVA) | payer MEDICARE, OTHER, SELFPAY | PROVIDERS: PCP Family Medicine; Visit Provider Thoracic Surgery (Cardiothoracic Vascular Surgery) | DX: I96 Gangrene, not elsewhere classified (principal); L89.892 Pressure ulcer of other site, stage 2 | CPT/HCPCS: 11042 ==

== ENCOUNTER → 2022-04-13 10:35 | Outpatient (BNVA) | payer MEDICARE, OTHER, SELFPAY | PROVIDERS: PCP Family Medicine; Visit Provider Thoracic Surgery (Cardiothoracic Vascular Surgery) | DX: I96 Gangrene, not elsewhere classified (principal); L89.892 Pressure ulcer of other site, stage 2 | CPT/HCPCS: 11042 ==

== ENCOUNTER → 2022-04-20 10:11 | Outpatient (BNVA) | payer MEDICARE, OTHER, SELFPAY | PROVIDERS: PCP Family Medicine; Visit Provider Thoracic Surgery (Cardiothoracic Vascular Surgery) | DX: I96 Gangrene, not elsewhere classified (principal); L89.892 Pressure ulcer of other site, stage 2 | CPT/HCPCS: 11042 ==

== ENCOUNTER → 2022-04-27 09:11 | Outpatient (BNVA) | payer MEDICARE, OTHER, SELFPAY | PROVIDERS: PCP Family Medicine; Visit Provider Thoracic Surgery (Cardiothoracic Vascular Surgery) | DX: I96 Gangrene, not elsewhere classified (principal); L89.892 Pressure ulcer of other site, stage 2 | CPT/HCPCS: 11042; A6021 ==

== ENCOUNTER → 2022-05-02 09:38 | Outpatient (BNVA) | payer MEDICARE, OTHER, SELFPAY | PROVIDERS: PCP Family Medicine; Visit Provider Anesthesiology Pain Medicine | DX: M19.012 Primary osteoarthritis, left shoulder (principal); M77.8 Other enthesopathies, not elsewhere classified; M16.0 Bilateral primary osteoarthritis of hip; Z98.1 Arthrodesis status; M47.816 Spondylosis without myelopathy or radiculopathy, lumbar region; M51.37 Other intervertebral disc degeneration, lumbosacral region; M19.011 Primary osteoarthritis, right shoulder | CPT/HCPCS: 73030; 73522; 99214 ==

== ENCOUNTER → 2022-05-04 09:08 | Outpatient (BNVA) | payer MEDICARE, OTHER, SELFPAY | PROVIDERS: PCP Family Medicine; Visit Provider Thoracic Surgery (Cardiothoracic Vascular Surgery) | DX: L89.892 Pressure ulcer of other site, stage 2 (principal) | CPT/HCPCS: 11042; A6021; A6250 ==

== ENCOUNTER → 2022-05-11 09:01 | Outpatient (BNVA) | payer MEDICARE, OTHER, SELFPAY | PROVIDERS: PCP Family Medicine; Visit Provider Thoracic Surgery (Cardiothoracic Vascular Surgery) | DX: L89.892 Pressure ulcer of other site, stage 2 (principal) | CPT/HCPCS: 11042; A6021; A6250 ==

== ENCOUNTER → 2022-05-18 09:07 | Outpatient (BNVA) | payer MEDICARE, OTHER, SELFPAY | PROVIDERS: PCP Family Medicine; Visit Provider Thoracic Surgery (Cardiothoracic Vascular Surgery) | DX: I96 Gangrene, not elsewhere classified (principal); L89.892 Pressure ulcer of other site, stage 2 | CPT/HCPCS: 11042; A6021; A6212 ==

== ENCOUNTER → 2022-05-20 10:03 | Outpatient (BNVA) | payer MEDICARE, OTHER, SELFPAY | PROVIDERS: PCP Family Medicine; Visit Provider Thoracic Surgery (Cardiothoracic Vascular Surgery) | DX: L89.892 Pressure ulcer of other site, stage 2 (principal) | CPT/HCPCS: 11042; A6021 ==

== ENCOUNTER → 2022-05-25 09:03 | Outpatient (BNVA) | payer MEDICARE, OTHER, SELFPAY | PROVIDERS: PCP Family Medicine; Visit Provider Thoracic Surgery (Cardiothoracic Vascular Surgery) | DX: L97.522 Non-pressure chronic ulcer of other part of left foot with fat layer exposed (principal) | CPT/HCPCS: 11042 ==

== ENCOUNTER → 2022-06-01 09:19 | Outpatient (BNVA) | payer MEDICARE, OTHER, SELFPAY | PROVIDERS: PCP Family Medicine; Visit Provider Thoracic Surgery (Cardiothoracic Vascular Surgery) | DX: L89.892 Pressure ulcer of other site, stage 2 (principal) | CPT/HCPCS: 11042 ==

== ENCOUNTER → 2022-06-08 08:48 | Outpatient (BNVA) | payer MEDICARE, OTHER, SELFPAY | PROVIDERS: PCP Family Medicine; Visit Provider Thoracic Surgery (Cardiothoracic Vascular Surgery) | DX: Z09 Encounter for follow-up examination after completed treatment for conditions other than malignant neoplasm (principal) | CPT/HCPCS: 29445; A6021; A6212 ==

== ENCOUNTER → 2022-06-09 15:48 | Outpatient (BNVA) | payer MEDICARE, OTHER, SELFPAY | PROVIDERS: PCP Family Medicine; Visit Provider Urology | DX: N40.1 Benign prostatic hyperplasia with lower urinary tract symptoms (principal); N28.89 Other specified disorders of kidney and ureter | CPT/HCPCS: 51741; 51798; 81003; 99213 ==

== ENCOUNTER → 2022-06-15 09:08 | Outpatient (BNVA) | payer MEDICARE, OTHER, SELFPAY | PROVIDERS: PCP Family Medicine; Visit Provider Thoracic Surgery (Cardiothoracic Vascular Surgery) | DX: Z09 Encounter for follow-up examination after completed treatment for conditions other than malignant neoplasm (principal) | CPT/HCPCS: 99212 ==

== ENCOUNTER → 2022-08-01 14:06 | Outpatient (BNVA) | payer MEDICARE, OTHER, SELFPAY | PROVIDERS: PCP Family Medicine; Visit Provider Internal Medicine Cardiovascular Disease | DX: I13.0 Hypertensive heart and chronic kidney disease with heart failure and stage 1 through stage 4 chronic kidney disease, or unspecified chronic kidney disease (principal); F17.210 Nicotine dependence, cigarettes, uncomplicated; N18.9 Chronic kidney disease, unspecified; I50.32 Chronic diastolic (congestive) heart failure; I87.2 Venous insufficiency (chronic) (peripheral); E66.9 Obesity, unspecified; Z68.37 Body mass index [BMI] 37.0-37.9, adult | CPT/HCPCS: 99214 ==

== ENCOUNTER 2022-08-08 06:00 | Outpatient (CLI) | payer MEDICARE, OTHER, SELFPAY | END 2022-08-08 06:01 | disposition home or self-care (01) | LOC: SPT 08-09 08:38 | PROVIDERS: PCP Family Medicine; Visit Provider Student in an Organized Health Care Education/Training Program | DX: M25.562 Pain in left knee (principal); M17.12 Unilateral primary osteoarthritis, left knee | CPT/HCPCS: 20610; 97760; 99214; J3301; L1851 ==

== ENCOUNTER → 2022-08-08 11:46 | Outpatient (BNVA) | payer MEDICARE, OTHER, SELFPAY | PROVIDERS: PCP Family Medicine; Visit Provider Student in an Organized Health Care Education/Training Program | DX: M17.12 Unilateral primary osteoarthritis, left knee (principal) | CPT/HCPCS: 20610; 73560; 73565; 97760; 99214; J3301; L1851 ==

== ENCOUNTER → 2022-09-15 14:19 | Outpatient (BNVA) | payer MEDICARE, OTHER, SELFPAY | PROVIDERS: PCP Family Medicine; Visit Provider Student in an Organized Health Care Education/Training Program | DX: M70.62 Trochanteric bursitis, left hip; M16.12 Unilateral primary osteoarthritis, left hip | CPT/HCPCS: 20610; 73502; 99213; J3301; J3490 ==

== ENCOUNTER → 2022-11-28 14:12 | Outpatient (BNVA) | payer MEDICARE, OTHER, SELFPAY | PROVIDERS: PCP Family Medicine; Visit Provider Student in an Organized Health Care Education/Training Program | DX: M17.12 Unilateral primary osteoarthritis, left knee (principal); F17.210 Nicotine dependence, cigarettes, uncomplicated | CPT/HCPCS: 99214 ==

== ENCOUNTER → 2023-01-10 09:39 | Outpatient (BNVA) | payer MEDICARE, OTHER, SELFPAY | PROVIDERS: PCP Family Medicine; Visit Provider Student in an Organized Health Care Education/Training Program | DX: M17.12 Unilateral primary osteoarthritis, left knee | CPT/HCPCS: 99213 ==

== ENCOUNTER → 2023-01-30 14:24 | Outpatient (BNVA) | payer MEDICARE, OTHER, SELFPAY | PROVIDERS: PCP Family Medicine; Visit Provider Internal Medicine Cardiovascular Disease | DX: I13.0 Hypertensive heart and chronic kidney disease with heart failure and stage 1 through stage 4 chronic kidney disease, or unspecified chronic kidney disease (principal); I50.32 Chronic diastolic (congestive) heart failure; N18.9 Chronic kidney disease, unspecified; I87.2 Venous insufficiency (chronic) (peripheral); E66.9 Obesity, unspecified; Z68.38 Body mass index [BMI] 38.0-38.9, adult; F17.210 Nicotine dependence, cigarettes, uncomplicated | CPT/HCPCS: 99214 ==

== ENCOUNTER → 2023-02-28 09:46 | Outpatient (BNVA) | payer MEDICARE, OTHER, SELFPAY | PROVIDERS: PCP Family Medicine; Visit Provider Student in an Organized Health Care Education/Training Program | DX: M16.12 Unilateral primary osteoarthritis, left hip (principal); M70.62 Trochanteric bursitis, left hip | CPT/HCPCS: 99214 ==

== ENCOUNTER → 2023-03-01 10:57 | Outpatient (BNVA) | payer MEDICARE, OTHER, SELFPAY | PROVIDERS: PCP Family Medicine; Visit Provider Internal Medicine Cardiovascular Disease | DX: I13.0 Hypertensive heart and chronic kidney disease with heart failure and stage 1 through stage 4 chronic kidney disease, or unspecified chronic kidney disease (principal); I50.9 Heart failure, unspecified; N18.9 Chronic kidney disease, unspecified; I73.9 Peripheral vascular disease, unspecified; I87.2 Venous insufficiency (chronic) (peripheral); E66.9 Obesity, unspecified; Z68.39 Body mass index [BMI] 39.0-39.9, adult; R74.01 Elevation of levels of liver transaminase levels; Z98.890 Other specified postprocedural states; Z86.79 Personal history of other diseases of the circulatory system; I35.0 Nonrheumatic aortic (valve) stenosis; F17.210 Nicotine dependence, cigarettes, uncomplicated | CPT/HCPCS: 99214 ==

== ENCOUNTER → 2023-03-17 10:56 | Outpatient (BNVA) | payer MEDICARE, OTHER, SELFPAY | PROVIDERS: PCP Family Medicine; Visit Provider Internal Medicine Cardiovascular Disease | DX: I10 Essential (primary) hypertension (principal); I73.9 Peripheral vascular disease, unspecified; I87.2 Venous insufficiency (chronic) (peripheral); F10.10 Alcohol abuse, uncomplicated; E66.9 Obesity, unspecified; R74.01 Elevation of levels of liver transaminase levels; N18.9 Chronic kidney disease, unspecified; Z98.890 Other specified postprocedural states; Z86.79 Personal history of other diseases of the circulatory system; I35.0 Nonrheumatic aortic (valve) stenosis; Z01.818 Encounter for other preprocedural examination | CPT/HCPCS: 81001 ==

== ENCOUNTER 2023-03-23 16:15 | Outpatient (CLI) | payer MEDICARE, OTHER, SELFPAY ==
--- NOTE | 2023-03-23 16:30 | CT_ITS ---
WS: [id number] CT LEFT knee, noncontrast HISTORY: M17.12 - Unilateral primary osteoarthritis, left knee TECHNIQUE: Protocol for [facility] total knee replacement has been obtained. This includes axial imaging th rough the LEFT hip, LEFT knee and LEFT ankle. DLP: 1019.67 mGy COMPARISON: None available. SI joints are narrowed bilaterally. No fractures. Bilateral hip joint osteoarthritis. LEFT knee: Tricompartment moderate to severe osteoarthritis. Marginal osteophytes. No fractures. Supr apatellar joint effusion is moderate. There is additional soft tissue edema surrounding the knee. LEFT ankle: No fractures. There is small well-corticated osseous densities at the midfoot. No acute f racture. IMPRESSION: CT imaging provided for [facility] robotic total knee replacement.
== END 2023-03-23 16:16 | disposition home or self-care (01) ==
LOC: RAD 16:16
PROVIDERS: PCP Family Medicine; Visit Provider Student in an Organized Health Care Education/Training Program
DX: M17.12 Unilateral primary osteoarthritis, left knee (principal)
CPT/HCPCS: 73700

== ENCOUNTER → 2023-03-28 12:28 | Outpatient (BNVA) | payer MEDICARE, OTHER, SELFPAY | PROVIDERS: PCP Family Medicine; Visit Provider Student in an Organized Health Care Education/Training Program | DX: M16.12 Unilateral primary osteoarthritis, left hip; M70.62 Trochanteric bursitis, left hip | CPT/HCPCS: 99213 ==

== ENCOUNTER 2023-04-10 16:11 | Outpatient (CLI) | payer MEDICARE, OTHER, SELFPAY ==
--- NOTE | 2023-04-10 16:30 | CT_ITS ---
WS: [id number] CT LEFT hip, noncontrast HISTORY: M16.12 - Unilateral primary osteoarthritis, left hip TECHNIQUE: Protocol for [facility] LEFT hip replacement has been obtained. This includes axial imaging thro ugh the LEFT hip, LEFT knee. DLP: 928.82 mGy COMPARISON: None available. Bones are osteopenic. SI joints are narrowed and partially fused. Degenerative changes at the hips. M ore significant degenerative changes involving the LEFT hip. There is marked osteophytic ridging and subchondral cystic changes surrounding the femoral head. There is osteophytic ridging around the acet abulum. No fractures. No dislocation. Prior RIGHT knee arthroplasty. Mild tricompartment joint space narrowing LEFT knee. Osteopenia. No fr actures or loose bodies. Moderate joint effusion. IMPRESSION: CT imaging provided for [facility] robotic LEFT hip arthroplasty.
== END 2023-04-10 16:12 | disposition home or self-care (01) ==
LOC: RAD 16:12
PROVIDERS: PCP Family Medicine; Visit Provider Student in an Organized Health Care Education/Training Program
DX: M16.12 Unilateral primary osteoarthritis, left hip (principal); M70.62 Trochanteric bursitis, left hip; M85.88 Other specified disorders of bone density and structure, other site
CPT/HCPCS: 73700; 99213

== ENCOUNTER → 2023-04-17 11:20 | Outpatient (BNVA) | payer MEDICARE, OTHER, SELFPAY | PROVIDERS: PCP Family Medicine; Visit Provider Family Medicine | DX: Z01.818 Encounter for other preprocedural examination (principal); Z79.899 Other long term (current) drug therapy | CPT/HCPCS: 80053; 81003; 85025; 87086 ==

== ENCOUNTER → 2023-04-18 12:25 | Outpatient (BNVA) | payer MEDICARE, OTHER, SELFPAY | PROVIDERS: PCP Family Medicine; Visit Provider Student in an Organized Health Care Education/Training Program | DX: M16.12 Unilateral primary osteoarthritis, left hip; M70.62 Trochanteric bursitis, left hip | CPT/HCPCS: 99214 ==

== ENCOUNTER 2023-04-24 14:26 | Outpatient (CLI) | payer MEDICARE, OTHER, SELFPAY ==
[2023-04-29 11:40] LABS: Cotinine, Urine 21 ng/mL; Nicotine, Urine 9 ng/mL
== END 2023-04-24 14:27 | disposition home or self-care (01) ==
LOC: LAB 14:27
PROVIDERS: PCP Family Medicine; Visit Provider Student in an Organized Health Care Education/Training Program
DX: Z01.818 Encounter for other preprocedural examination (principal)
CPT/HCPCS: 80323

== ENCOUNTER 2023-05-01 10:07 | Observation (INO) | payer MEDICARE, OTHER, SELFPAY ==
[2023-05-01] VITALS (22 sets, daily range): BP systolic 90–158; BP diastolic 47–75; PULSE 62–83; RESP 16–22; TEMP 35.9–36.7; O2SAT 2–100; BMI 39.3
[2023-05-01] MEDS: lactated ringers 500 ML IV (06:19)
[2023-05-01] MEDS: acetaminophen 1,000 MG/100 ML PIGGYBACK 400 MG IV ×2 (06:21→13:16)
[2023-05-01] MEDS: ketorolac 30 mg/mL INJ IVP (06:21)
[2023-05-01] MEDS: sodium chloride 0.9% 1,000 ML 30 ML IV (06:47)
[2023-05-01 06:50] LABS: Basophils # 0.1 10^3/uL (0.0-0.1); Basophils % 0.9 %; Eosinophils # 0.2 10^3/uL (0.0-0.8); Eosinophils % 4.1 %; Hematocrit 41.7 % (37-53); Lymphocytes # 1.5 10^3/uL (0.8-4.8); Lymphocytes % 25.4 %; Mean Corpuscular HGB Conc 31.2 g/dL (30-55); Mean Corpuscular Hemoglobin 30.4 pg (27-33); Mean Corpuscular Volume 97.4 fl (82-101); Mean Platelet Volume 9.8 fL (7.4-10.4); Monocytes # 0.6 10^3/uL (0.2-0.9); Monocytes % 10.4 %; Neutrophils # 3.45 10^3/uL (1.8-7.7); Neutrophils % 58.9 %; Nucleated Red Blood Cells % 0 %; Platelet Count 155 10^3/cmm (157-399); Red Blood Count 4.28 10^6/uL (3.85-5.65); Red Cell Distribution Width 15.8 % (12.1-15.1); White Blood Count 5.86 10^3/uL (3.29-11.43)
--- NOTE | 2023-05-01 06:55 | W.PM.OPSUD ---
Surgery/Procedure H&P Update DATE OF PROCEDURE: May 01, 2023 DATE H&P PERFORMED: 04/18/23 H&P UPDATE INFORMATION: I have reviewed H&P completed within last 30 days, I have examined patient prior to procedure and No changes to prior documentation CHANGES TO PREVIOUS DOCUMENTATION: Patient last week took a nicotine test and came back as normal for non-smoking as he has stopped smoking for the past 4+ weeks. This point in time he has been medically optimized through preoperative clinic team he understands incidence procedure risk benefits complication alternatives of surgery and through shared decision-making elects proceed with surgical intervention all questions answered at this time. PREOP DIAGNOSIS: Left hip degenerative joint disease PRIMARY INDICATION FOR PROCEDURE: Left hip degenerative joint disease PLANNED PROCEDURE: Operation Date: 05/01/23 07:30 Proposed Procedures p Sea Robot Total Hip Arthroplasty(Left)(Left) - Serjio Raygoza DO
--- NOTE | 2023-05-01 06:57 | P.ANESASSM_ITS ---
Pre-Anesthetic Assessment Height/Weight: Height 1.83 m Weight 131.542 kg Temp Pulse Resp BP Pulse Ox O2 Del Method 98.0 F 78 18 134/74 93 Room Air 05/01/23 06:09 05/01/23 06:09 05/01/23 06:09 05/01/23 06:09 05/01/23 06:09 05/01/23 06:16 Preop Diagnosis: Left hip degenerative joint disease Operation Date: 05/01/23 07:30 Proposed Procedures p Sea Robot Total Hip Arthroplasty(Left)(Left) - Serjio Raygoza DO Familial anesthetic complications: None Was Beta Trevor taken within 24 hours: Yes Was Clonidine taken within 24 hours: N/A Last intake: Intake Last Liquid Date 04/30/23 Last Liquid Time 20:00 Last Solid Date 04/30/23 Last Solid Time 18:00 Social Tobacco recently quit smoking for the surgeyr Exam alert, oriented x 3, clear to auscultation bilaterally (dminished) and regular rate & rhythm Airway Mallampati: Class IV Dentition: other (no teeth) Comments: Comments: large neck circumference and tongue, hernández/goatee Pulmonary Chronic Obstructive Pulmonary Disease (exacerbation treated last month - back to baseline pulmonary status ) and Sleep Apnea CV/HEM Congestive Heart Failure and Hypertension Mild - will keep afterload high Chronic Renal Insufficiency Anesthetic Plan ASA status: 4 Anesthesia: Regional (specify below) Other: spinal Risk of > 500 ml blood loss (7ml/kg in children): Yes, adequate IV access and fluids planned Medications/Allergies Home Medications Medication Instructions Recorded Confirmed Last Taken Type bisacodyl 5 mg tablet,delayed 5 mg PO DAILY PRN Constipation 03/05/19 05/01/23 09/16/20 History release (Dulcolax (bisacodyl)) lovastatin 40 mg tablet 40 mg PO DAILY 03/05/19 05/01/23 04/30/23 History ergocalciferol (vitamin D2) 1,250 1,250 mcg PO Q7D 05/25/20 05/01/23 04/30/23 History mcg (50,000 unit) capsule fluoxetine 20 mg capsule 60 mg PO DAILY 05/25/20 05/01/23 04/30/23 History buspirone 10 mg tablet 10 mg PO TID 06/12/20 05/01/23 04/30/23 History tadalafil 20 mg tablet 20 mg PO DAILY PRN Erectile 06/12/20 05/01/23 04/30/23 History Dysfunction fluticasone propionate 50 1 spray intranasal BID PRN Allergy 10/28/20 05/01/23 04/30/23 History mcg/actuation nasal Symptoms spray,suspension ipratropium 0.5 mg-albuterol 3 mg 3 ml inhalation Q4H PRN shortness 11/07/20 05/01/23 Unknown Rx (2.5 mg base)/3 mL nebulization of breath or wheezing #180 mL soln testosterone cypionate 200 mg/mL 200 mg IM .EVERY 21 DAYS 06/23/21 05/01/23 Unknown History intramuscular oil naloxone 4 mg/actuation nasal 4 mg intranasal Q2M PRN opioid 06/27/21 05/01/23 Unknown Rx spray (Narcan) overdose #2 ea finasteride 5 mg tablet 5 mg PO QDAY #90 tabs 07/29/21 05/01/23 04/30/23 Rx fluticasone 500 mcg-salmeterol 50 1 inh inhalation Q12H PRN sob 08/05/21 05/01/23 Unknown History mcg/dose blistr powdr for inhalation (Advair Diskus) hydralazine 10 mg tablet 10 mg PO .COMPLEX #120 tabs 08/05/21 05/01/23 04/30/23 Rx baclofen 20 mg tablet 20 mg PO TID PRN Muscle Pain 01/31/22 05/01/23 04/30/23 History gabapentin 600 mg tablet 300 mg PO TID 01/31/22 05/01/23 04/30/23 History esomeprazole magnesium 40 mg 40 mg PO BID 02/17/22 05/01/23 04/30/23 History capsule,delayed release tamsulosin 0.4 mg capsule See Rx Instructions .Route 02/24/22 05/01/23 04/30/23 Rx .COMPLEX #180 caps oxycodone-acetaminophen 10 mg-325 1 tab PO Q4H PRN Pain 5 days #20 03/15/22 05/01/23 04/30/23 Rx mg tablet (Percocet) tabs [employer] Brace #1 ea 08/08/22 04/18/23 Unknown Rx hydrochlorothiazide 12.5 mg tablet 12.5 mg PO DAILY edema 01/30/23 05/01/23 04/30/23 History carvedilol 12.5 mg tablet 25 mg PO BID 03/17/23 05/01/23 05/01/23 History mirtazapine 15 mg tablet 15 mg PO .qhs 03/17/23 05/01/23 04/30/23 History Allergies Allergy/AdvReac Type Severity Reaction Status Date / Time adhesive tape Allergy Mild ALGY-Rash Verified 05/01/23 06:03 ciprofloxacin Allergy Unknown Unknown Verified 05/01/23 06:03 Forced Air Heat Allergy Mild Difficulty Uncoded 05/01/23 06:03 breathing; dries up sinuses. Current Medications Generic Name Dose Route Start Last Admin Trade Name Freq PRN Reason Stop Dose Admin Sodium Chloride 1,000 mls @ 30 mls/hr 05/01/23 06:00 05/01/23 06:47 Sodium Chloride 0.9% IV 05/02/23 05:59 30 mls/hr .Q24H [place] Administration PFSH Anesthesia Medical History Ganglion cyst of volar aspect of right wrist Cubital tunnel syndrome, bilateral CO2 narcosis Pressure ulcers of skin of multiple topographic sites Venous (peripheral) insufficiency Diverticulosis Colon polyps Esophageal candidiasis BPH loc w urin obs/LUTS Alcoholism Obesity Chronic pain Depression with anxiety DJD (degenerative joint disease) Aortic stenosis GERD (gastroesophageal reflux disease) CRI (chronic renal insufficiency) CHF (congestive heart failure) COPD (chronic obstructive pulmonary disease) HTN (hypertension) Sleep apnea LVH (left ventricular hypertrophy) DDD (degenerative disc disease) CKD (chronic kidney disease) Surgical History Previous back surgery x 4 History of right knee joint replacement History of nasal surgery Hx of tonsillectomy History of aortic aneurysm repair History of coronary angioplasty with insertion of stent Family History Mother , in early 70's Heart attack Father No problems noted. Other CAD (coronary artery disease) Social History Smoking and tobacco/nicotine status: current every day tobacco/nicotine user cigarettes Packs smoked per day: 3 Alcohol intake: current Alcohol intake frequency: few times a month Alcohol type: beer Substance/Drug Use: never Household members: significant other Marital status: Marital status details: No longer with his in last 5 years, who takes care of his financials Current occupational status: disabled Data Anesthesia 05/01/23 06:20 05/01/23 06:20 Short CBC 05/01/23 Range/Units 06:20 WBC 5.86 (3.29-11.43) 10^3/uL Hgb 13.00 (11.27-16.99) g/dL Hct 41.7 (37-53) % MCV 97.4 (82-101) fl Plt Count 155 L (157-399) 10^3/cmm Neut % (Auto) 58.9 % Neut # (Auto) 3.45 (1.8-7.7) 10^3/uL Cardiac Studies: 2 Echocardiogram 06/23/21 Echocardiogram Ultrasound 05/25/20 Sestamibi Stress Test (Cardiology) 05/25
[2023-05-01 07:04] LABS: Anion Gap 11.4 (5-19); Blood Urea Nitrogen 27 mg/dL (8-23); Calcium 9.1 mg/dL (8.5-10.5); Carbon Dioxide 28 mmol/L (22-29); Chloride 102 mmol/L (98-107); Glucose 100 mg/dL (65-115); Osmolality Calculated 289 mOsm/kg (285-295); Potassium 4.4 mmol/L (3.5-5.1); Sodium 137 mmol/L (136-145)
[2023-05-01] MEDS: ceFAZolin 2,000 MG in sodium chloride 0.9% (plus) 50 ML 100 MG IV (07:34)
[2023-05-01] MEDS: tranexamic acid 1,000 mg/10mL SDV 1000 MG IV (07:48)
[2023-05-01] MEDS: ceFAZolin 1,000 mg SDV 1000 MG IVP (08:13)
[2023-05-01] MEDS: vancomycin 1,000 MG SDV 2000 MG INTRA-ARTI (08:42)
--- NOTE | 2023-05-01 10:36 | XRR_ITS ---
PROCEDURE INFORMATION: Exam: XR Left Hip Exam date and time: 05/01/2023 10:05 AM Age: 62 years old Clinical indication: Device placement; Other: Left de, prior surgery; Surgery date: Post-operative (0-2 days); Additional info: Post op left de, do in pacu TECHNIQUE: Imaging protocol: Radiologic exam of the left hip. Views: 2 or 3 views hip with pelvis when performed. COMPARISON: CT hip LT [facility] [id number] 04/10/2023 4:25 PM FINDINGS: Bones/joints: Left total femoral acetabular hip arthroplasty. Lower lumbar spine postsurgical changes. Residual moderate degenerative changes of the visualized osseous structures. Scattered left hip subcutaneous emphysema. Soft tissues: See Bones/joints finding. XR/XR hip LT 2-3V wo/w pel* [id number] IMPRESSION: 1. Patient is status post left total hip arthroplasty without evidence for acute surgical complication. 2. Residual findings as above.
--- NOTE | 2023-05-01 10:37 | W.PM.BPON ---
Date of Procedure: 05/01/2023 Surgeon: Serjio Raygoza DO Bioinformatics Developer(s): Matthew Raygoza PA-C Procedure(s) performed: Left total hip arthroplasty?Sea robotic assisted (posterior approach) Findings of the procedure(s): Patient found to have severe left hip degenerative joint disease underwent procedure as planned without any complications or issues. Estimated blood loss: 200 mL Specimen(s) removed: Femoral head and acetabular reamings removed Post-operative diagnosis: Left hip degenerative joint disease
--- NOTE | 2023-05-01 10:38 | PM.OP ---
Operative Report Date of procedure: May 01, 2023 Surgeon: Serjio Raygoza DO Orthopedic Nurse Practitioner: Matthew Raygoza PA-C: PA was necessary for assistance in this case with leg positioning, reduction, retraction and protection of neurovascular structures as well as assistance in implantation wound closure and dressing application. Procedure: Preop Diagnosis Left hip degenerative joint disease Post-op diagnosis: Left hip degenerative joint disease Procedure done: Left total hip arthroplasty?robotic assisted Sea (posterior approach) Implants: Toni total hip arthroplasty implants 60 mm cluster hole acetabular shell 6.5 mm x (20mm) acetabular screw Alpha code G MDM cementless metal liner Femoral stem size #7 127 degree neck angle Alpha code G MDM +4 mm head Surgeon: Serjio Raygoza DO Estimated blood loss: 200 mL IV fluids: 1300 mL Urine output: 50 mL Complications: None Condition: stable Disposition: floor Brief History: Patient's been seen and worked up by myself in the outpatient setting and findings consistent with Left hip degenerative joint disease. He has failed conservative treatment this is causing him severe pain and decreased mobility. We talked about his treatment options as far as nonoperative and operative intervention. he ultimately through shared decision-making would like to proceed with a Left total hip arthroplasty. we detailed out his risk benefits complications alternatives to surgical and nonsurgical treatment options. Understanding his risk for surgery he elects to proceed with Left total hip arthroplasty robotic assisted Sea utilizing a posterior approach. All questions answered. He elects proceed with surgery today. Procedure: Patient was seen evaluate in preoperative holding area.? Consent was reviewed and signed with patient.? Correct extremity was then marked.? Patient seen evaluate by anesthesia department once cleared for surgery pt was taken back to the operative suite.? Patient underwent spinal anesthesia per the anesthesia department.? This point time pt was then placed on the operative suite and table.? Pt was then placed in lateral decubitus patient worked with the Left hip up.? Patient was secured in the lateral decubitus position with pegboard. All bony prominences well-padded he was properly secured to the bed.? At this point time the Left lower extremity was then prepped and draped in standard orthopedic fashion with care not to drape out the iliac wing for pelvic array placement.? Final timeout performed.? Patient received appropriate preoperative antibiotics. Started off with establishment of my pelvic array pins.? A small longitudinal incision was made directly over the iliac wing.? Sharp scalpel excision through skin and subcutaneous tissue directly onto bone.? Next I then loaded my pelvic pin.? This was then drilled through the iliac wing corridor with excellent fixation.? Next I then loaded the guide which was placed directly onto bone and then subsequently placed 2 more pins to secure fixation.? Next the pelvic array was then sent had excellent visualization with the Sea robot and was secured. EKG pad was placed on the distal lateral aspect of the femur and sterile aseptic technique and use as my distal reference point. Next I proceeded with my standard posterior approach.? Sharp scalpel through skin and subcutaneous tissue this was centered over the greater trochanter.? I then utilized a Barker elevator over the gluteus sunil fascia.? Next the fascia was then split longitudinally with bipolar electrocautery.? Next a Charnley retractor was then placed.? All bone was then placed into the abductors.? A standard full-thickness release of the piriformis and the short external rotators along with the capsule to grade 1 full thick sleeve for later repair was then placed straight down to the lesser trochanter.? Lesser trochanter was then subsequently identified.? Prior to dislocating the hip we then placed our greater trochanter femur checkpoint.? We marked our appropriate checkpoint for referencing on pelvic array.? At this point in time we then established both of our checkpoints as well as referencing for leg lengths I utilized the EKG pad as my distal reference point. The legs were marked and traced to have appropriate position on the drapes to allow for accurate reading.? Preoperative leg lengths set. Once this was then established I then proceeded with dislocation of the femoral head.? At this point Hohmann's were then placed superiorly and inferiorly along the femoral neck..? The sciatic nerve was protected throughout this case.? At this point time I then utilized the Sea robot and referencing point to reference different aspects along the femoral head and neck for my appropriate neck length.? These were referenced on the inferior mid substance as well as up into the superior shoulder of the femoral neck.? This marked my oscillating saw was used to make my femoral neck cut.? Femoral head was then removed. Next the leg was placed in appropriate position and my anterior and posterior acetabular retractors then placed.? Next I excised the labrum and then remove the pulvinar.? I did do a small release of the inferior capsule which was severely taut to allow for easier placement of my reamers as well as reduction.? Acetabulum was thoroughly irrigated. At this point in time keeping my retractors in place I subsequently loaded up the [employer] robot for my acetabular reaming.?? Next I then set my 60mm reamer under the [employer] robot and subsequently held this with appropriate preplanned preop planned version of 40 degrees of abduction angle as well as 20 degrees of anteversion.? This preoperative plan was then subsequently made to accommodate for ranges of motion of impingement that was assessed preoperatively utilizing the [employer] robotic software technology. The small adjustments of abduction and anteversion accommodated no anterior hip impingement with the hip flexed at 90 degrees. I then subsequently reamed this to the appropriate depth with 60mm reamer.? We opened up the acetabular shell clusterhole of the 60 mm Toni this was then loaded onto my impacting system and then I subsequently impacted this to appropriate depth.? This was then removed from the robot and I used the [employer] probe at the center to confirm on the CT scan that this was down on bone which it was.? Next I then drilled and placed 1 acetabular screws with excellent fixation these were drilled and measured to be 20mm this was in the posterior superior aspect of the acetabulum had excellent bite and fixation.? The cup was solid and had excellent press-fit fixation. next, opened the alpha code G MDM cementless liner then subsequently placed in appropriate position and impacted into place.? I then placed a sponge into the acetabulum to protect the liner while my femur preparation was performed.? At this point time I then utilized a small rongeur to clear off the shoulder of the femoral neck to clear out the soft tissue envelope for my box osteotome.? Next box osteotome was used a canal finder was placed as well as a lateral lysing rattail rasp.? Once I was appropriately lateralized I then sequentially broached up to a size 7 femoral stem.? This was impacted to appropriate depth. This point I loaded a standard size neck and subsequently reduced the hip.? At this point in time the hip was taken through range of motion before evaluating with the robot on leg lengths.? Patient appeared to have room to increase on leg lengths clinically.? The hip was taken through range of motion and had excellent stability with hip flexion and internal rotation with no evidence of instability had an slightly increased shuck.? This point time utilized the Sea probe from our femur checkpoint down to her distal checkpoint. Satisfied with this trial implants, at this point I dislocated the hip and then called for my final implants with excellent stability in all planes.? Opened up a size 7 femoral Accolade II stem.? My trials were then removed and then subsequently impacted my Accolade II stem to the same level.? This point in time I trialed up to a +4 mm neck length which helped match with Sea robotic assistance had appropriate leg lengths comparative to the contralateral hip and this was confirmed clinically as well as had excellent stability I felt as though this was best combination with leg lengths being equal as well as with stability and elected for the final +4 mm MDM femoral head. Final MDM femoral head component was then opened and the trunnion was dried and this was impacted with excellent fixation and the hip was subsequently reduced.? We measured our final leg lengths which were appropriate patient had excellent stability in all ranges of motion.? This point time a robotic pins and checkpoints were removed.? I remove the femur checkpoint as well as my pelvic array and iliac wing pins.? Appropriate counts were then made.? This point time thoroughly irrigated the wound bed with pulse lavage.? Vancomycin powder was then sprinkled into the wound bed.? I then performed a standard capsular and external rotator repair utilizing #5 Ethibond and this was tied and repaired through bone tunnels hip, sciatic nerve was protected throughout this portion of the case. Was then kept in abduction external rotation and subsequently closed the fascial layer with Ethibond suture as well as running strata fix suture.? I then closed the deep subcutaneous layer as well as superficial subcutaneous layer with running strata fix suture as well as 3-0strata fix for skin.? Prineo glue dressing was then placed over the skin.? I then irrigated the pelvic array pin site.? There is were then closed with interrupted 0, 2-0 Vicryl suture and Monocryl as well as Prineo glue for the skin.? Incisions were then covered with marcelina and Silverlon dressing.? Patient was awakened from anesthesia and taken to PACU in stable condition Disposition: Patient taken to PACU in stable condition.? Patient will receive appropriate discharge instructions as well as DVT prophylaxis and pain medication.? Patient will be admitted to the floor for observation should be evaluated by the internal medicine team for medical management.? Patient received appropriate DVT prophylaxis as well as pain medication PT/OT weightbearing as tolerated Left lower extremity with posterior hip precautions, Postoperative Abx and TXA.? We will follow-up with patient in the office in 2 weeks.? Patient understands agrees with current plan.? All questions answered.
--- NOTE | 2023-05-01 10:54 | PM.PACU ---
PACU note Narrative: Patient is a 62-year-old male just underwent a left hip total arthroplasty. Pt transferred to PACU in stable condition. Dressing is dry. Patient is still under anesthetic and not alert and interactive, but is medically stable. Distal pulses are palpable toes are warm and well-perfused. Cap refill is normal and under 2 seconds. Rest of exam is limited due to residual anesthetic. Pain is controlled. Exam: unarousable Disposition: admitted
--- NOTE | 2023-05-01 11:35 | ANE.PACU2 ---
Inpatient post-anesthesia follow up: Airway intact: Yes Vital signs: Temperature 97 F Pulse Rate 74 Respiratory Rate 18 Blood Pressure 90/58 Pulse Oximetry 95 Oxygen Delivery Me thod Room Air Oxygen Flow Rate 10 Fraction of Inspir ed Oxygen Hydration adequate: Yes Nausea and vomiting: No Pain level: 1 Mental status: Baseline
[2023-05-01] MEDS: chlorhexidine gluconate 0.12% Btl 473 mL 30 ML MUCOUS MEM ×3 (13:15→20:15)
--- NOTE | 2023-05-01 13:22 | PM.CONSULT ---
Providers/Reason For Consult Consulting Physician/Specialty*: George Ying MD Reason for Consult*: MEdical MGMT Attending Physician: Serjio Raygoza DO Primary Care Provider: Barbara Longo DO History of Present Illness History of Present Illness Perry Norman is a 62 year old male who underwent a left total hip arthroplasty this morning by orthopedic surgery. I am being consulted for medical management. The patient has a wide assortment of medical conditions. I saw him directly in recovery, and he had not yet recovered from anesthesia enough to participate adequately in HPI. Nursing staff there report he is recovering well, although still somewhat sleepy. They report no complications with surgery. Review of Systems General: Reports: ROS unobtainable due to medical condition Medications/Allergies Home Medications Medication Instructions Recorded Confirmed Last Taken Type bisacodyl 5 mg tablet,delayed 5 mg PO DAILY PRN Constipation 03/05/19 05/01/23 09/16/20 History release (Dulcolax (bisacodyl)) lovastatin 40 mg tablet 40 mg PO DAILY 03/05/19 05/01/23 04/30/23 History ergocalciferol (vitamin D2) 1,250 1,250 mcg PO Q7D 05/25/20 05/01/23 04/30/23 History mcg (50,000 unit) capsule fluoxetine 20 mg capsule 60 mg PO DAILY 05/25/20 05/01/23 04/30/23 History buspirone 10 mg tablet 10 mg PO TID 06/12/20 05/01/23 04/30/23 History tadalafil 20 mg tablet 20 mg PO DAILY PRN Erectile 06/12/20 05/01/23 04/30/23 History Dysfunction fluticasone propionate 50 1 spray intranasal BID PRN Allergy 10/28/20 05/01/23 04/30/23 History mcg/actuation nasal Symptoms spray,suspension ipratropium 0.5 mg-albuterol 3 mg 3 ml inhalation Q4H PRN shortness 11/07/20 05/01/23 Unknown Rx (2.5 mg base)/3 mL nebulization of breath or wheezing #180 mL soln testosterone cypionate 200 mg/mL 200 mg IM .EVERY 21 DAYS 06/23/21 05/01/23 Unknown History intramuscular oil naloxone 4 mg/actuation nasal 4 mg intranasal Q2M PRN opioid 06/27/21 05/01/23 Unknown Rx spray (Narcan) overdose #2 ea finasteride 5 mg tablet 5 mg PO QDAY #90 tabs 07/29/21 05/01/23 04/30/23 Rx fluticasone 500 mcg-salmeterol 50 1 inh inhalation Q12H PRN sob 08/05/21 05/01/23 Unknown History mcg/dose blistr powdr for inhalation (Advair Diskus) hydralazine 10 mg tablet 10 mg PO .COMPLEX #120 tabs 08/05/21 05/01/23 04/30/23 Rx baclofen 20 mg tablet 20 mg PO TID PRN Muscle Pain 01/31/22 05/01/23 04/30/23 History gabapentin 600 mg tablet 300 mg PO TID 01/31/22 05/01/23 04/30/23 History esomeprazole magnesium 40 mg 40 mg PO BID 02/17/22 05/01/23 04/30/23 History capsule,delayed release tamsulosin 0.4 mg capsule See Rx Instructions .Route 02/24/22 05/01/23 04/30/23 Rx .COMPLEX #180 caps oxycodone-acetaminophen 10 mg-325 1 tab PO Q4H PRN Pain 5 days #20 03/15/22 05/01/23 04/30/23 Rx mg tablet (Percocet) tabs Chemical Instrumentation Officer Brace #1 ea 08/08/22 04/18/23 Unknown Rx hydrochlorothiazide 12.5 mg tablet 12.5 mg PO DAILY edema 01/30/23 05/01/23 04/30/23 History carvedilol 12.5 mg tablet 25 mg PO BID 03/17/23 05/01/23 05/01/23 History mirtazapine 15 mg tablet 15 mg PO .qhs 03/17/23 05/01/23 04/30/23 History Allergies Allergy/AdvReac Type Severity Reaction Status Date / Time adhesive tape Allergy Mild ALGY-Rash Verified 05/01/23 06:03 ciprofloxacin Allergy Unknown Unknown Verified 05/01/23 06:03 Forced Air Heat Allergy Mild Difficulty Uncoded 05/01/23 06:03 breathing; dries up sinuses. Current Medications Generic Name Dose Route Start Last Admin Trade Name Freq PRN Reason Stop Dose Admin Chlorhexidine Gluconate 30 ml 05/01/23 13:00 05/01/23 13:15 Chlorhexidine Gluconate 0.12% Btl 473 Ml MUCOUS MEM 30 ml QID N[place]ON Administration Acetaminophen 1,000 mg in 100 mls @ 400 mls/hr 05/01/23 12:30 05/01/23 13:16 Acetaminophen IV 05/02/23 04:44 400 mls/hr Q8H N[place] Administration PFSH Acute PFSH: Medical History (Updated 05/01/23 @ 14:09 by George Ying MD) Ganglion cyst of volar aspect of right wrist Cubital tunnel syndrome, bilateral CO2 narcosis Pressure ulcers of skin of multiple topographic sites Venous (peripheral) insufficiency Diverticulosis Colon polyps Esophageal candidiasis BPH loc w urin obs/LUTS Alcoholism Obesity Chronic pain Depression with anxiety DJD (degenerative joint disease) Aortic stenosis GERD (gastroesophageal reflux disease) CRI (chronic renal insufficiency) CHF (congestive heart failure) COPD (chronic obstructive pulmonary disease) HTN (hypertension) Sleep apnea LVH (left ventricular hypertrophy) DDD (degenerative disc disease) CKD (chronic kidney disease) Surgical History (Updated 05/01/23 @ 14:09 by George Ying MD) Previous back surgery x 4 History of right knee joint replacement History of nasal surgery Hx of tonsillectomy History of aortic aneurysm repair History of coronary angioplasty with insertion of stent Family History Mother , in early 70's Heart attack Father No problems noted. Other CAD (coronary artery disease) Social History Smoking and tobacco/nicotine status: current every day tobacco/nicotine user cigarettes Packs smoked per day: 3 Alcohol intake: current Alcohol intake frequency: few times a month Alcohol type: beer Substance/Drug Use: never Household members: significant other Marital status: Marital status details: No longer with his in last 5 years, who takes care of his financials Current occupational status: disabled Vitals/I&O/Wt Last Vital Signs Temp 97 F L 05/01/23 10:45 Pulse 74 05/01/23 11:25 Resp 18 05/01/23 11:25 BP 90/58 05/01/23 11:25 Pulse Ox 95 05/01/23 11:25 O2 Del Method Room Air 05/01/23 11:58 O2 Flow Rate 10 05/01/23 11:05 04/30/23 05/01/23 05/01/23 22:59 06:59 14:59 Intake Total 600 / 600 1550 / 1550 Output Total 250 / 250 Balance 600 / 600 1300 / 1300 Weight last 48 hrs Weight 131.542 kg Weight 131.542 kg Physical Exam Narrative: General exam is no distress HEENT: Atraumatic. Nasal trumpet removed while I was in the room Neck is supple Cardiovascular regular rate and rhythm Lungs a few bilateral expiratory wheezes Abdomen is soft with positive bowel sounds Extremities no cyanosis clubbing or edema, dressing left hip clean and dry Skin no rash Neuro no obvious focal deficits Urinary Catheter Management: Mukherjee: Cath Placed During This Visit: yes Urinary Catheter Date of Insertion: 05/01/23 Urinary Catheter Time of Insertion: 07:25 Data 05/01/23 06:20 05/01/23 06:20 A&P Assessment and plan (1) Degenerative joint disease of left hip: Today patient is directly postoperative left total hip arthroplasty There have been no apparent complications Close monitoring for any postoperative acute blood loss anemia with CBC tomorrow (2) COPD (chronic obstructive pulmonary disease): Patient has underlying COPD Budesonide twice daily DuoNeb every 6 hours as needed (3) CKD (chronic kidney disease): Patient with chronic kidney disease Hold anti-inflammatories Recheck BMP tomorrow (4) History of coronary angioplasty with insertion of stent: Continue statin Continue beta-lee Add aspirin 81 mg daily Plan Hypertension. Hold hydrochlorothiazide and face of recent surgery Other medical problems as outlined in past medical history Thank you for this consultation, we will continue to follow Consult Attestations Medical Necessity Statement: As per primary Diagnoses Degenerative joint disease of left hip M16.12 COPD (chronic obstructive pulmonary disease) J44.9 CKD (chronic kidney disease) N18.9 History of coronary angioplasty with insertion of stent Z95.5 Time Spent (min) 56
[2023-05-01] MEDS: HYDROmorphone 1 mg/mL INJ 1 mL 0.5 MG IVP ×2 (14:31→19:49)
[2023-05-01] MEDS: tranexamic acid 1,000 MG/100 ML PREMIX 600 MG IV (14:40)
[2023-05-01] MEDS: BuSPIRONE 10 mg Tablet PO ×2 (14:56→20:15)
[2023-05-01] MEDS: gabapentin 300 mg Capsule PO ×2 (14:56→20:15)
[2023-05-01] MEDS: ceFAZolin 3,000 MG in sodium chloride 0.9% (plus) 50 ML 100 MG IV ×2 (15:00→23:26)
[2023-05-01] MEDS: lactated ringers 1,000 ML 100 ML IV ×2 (15:00→23:26)
[2023-05-01] MEDS: sennosides-docusate Tablet 2 TAB PO (17:03)
[2023-05-01] MEDS: pantoprazole DR 40 mg Tablet PO (17:03)
[2023-05-01] MEDS: calcium carb-vit d 600mg/400unit 1 Tablet 1 EACH PO (17:03)
[2023-05-01] MEDS: iron polysaccharide complex 150 mg Capsule PO (17:03)
[2023-05-01] MEDS: oxyCODONE-APAP 10-325 mg Tablet 1 TAB PO ×2 (17:10→22:40)
[2023-05-01] MEDS: mupirocin oint 22 gm 1 APPLIC NASAL (17:11)
[2023-05-01] MEDS: budesonide 0.5 mg/2 mL Neb INHALATION (19:50)
[2023-05-02] VITALS (8 sets, daily range): BP systolic 124–168; BP diastolic 66–83; PULSE 80–98; RESP 16–20; TEMP 36.4–36.5; O2SAT 90–96; BMI 43.4
[2023-05-02] MEDS: HYDROmorphone 1 mg/mL INJ 1 mL 0.5 MG IVP ×2 (00:02→05:39)
[2023-05-02] MEDS: oxyCODONE-APAP 10-325 mg Tablet 1 TAB PO ×2 (04:47→08:47)
[2023-05-02 05:52] LABS: Basophils % 0.3 %; Eosinophils # 0.2 10^3/uL (0.0-0.8); Eosinophils % 2.1 %; Hematocrit 33.8 % (37-53); Lymphocytes # 0.8 10^3/uL (0.8-4.8); Lymphocytes % 8.2 %; Mean Corpuscular HGB Conc 31.7 g/dL (30-55); Mean Corpuscular Hemoglobin 30.7 pg (27-33); Mean Corpuscular Volume 96.8 fl (82-101); Mean Platelet Volume 9.6 fL (7.4-10.4); Monocytes # 0.9 10^3/uL (0.2-0.9); Monocytes % 9.7 %; Neutrophils # 7.27 10^3/uL (1.8-7.7); Neutrophils % 79.5 %; Nucleated Red Blood Cells % 0 %; Platelet Count 138 10^3/cmm (157-399); Red Blood Count 3.49 10^6/uL (3.85-5.65); Red Cell Distribution Width 15.9 % (12.1-15.1); White Blood Count 9.15 10^3/uL (3.29-11.43)
[2023-05-02 06:42] LABS: Anion Gap 13.7 (5-19); Blood Urea Nitrogen 27 mg/dL (8-23); Calcium 8.3 mg/dL (8.5-10.5); Carbon Dioxide 24 mmol/L (22-29); Chloride 103 mmol/L (98-107); Creatinine Clr Calc Pharmacy 70.9223; Glucose 109 mg/dL (65-115); Osmolality Calculated 288 mOsm/kg (285-295); Potassium 4.7 mmol/L (3.5-5.1); Sodium 136 mmol/L (136-145)
[2023-05-02] MEDS: budesonide 0.5 mg/2 mL Neb INHALATION (08:00)
[2023-05-02] MEDS: ceFAZolin 3,000 MG in sodium chloride 0.9% (plus) 50 ML 100 MG IV (08:07)
[2023-05-02] MEDS: carvedilol 12.5 mg Tablet 25 MG PO (08:08)
[2023-05-02] MEDS: calcium carb-vit d 600mg/400unit 1 Tablet 1 EACH PO (08:08)
[2023-05-02] MEDS: tamsulosin 0.4 mg Capsule 0.400000000000000022 MG PO (08:08)
[2023-05-02] MEDS: multivitamin therapeutic Tablet 1 TAB PO (08:09)
[2023-05-02] MEDS: finasteride 5 mg Tablet PO (08:09)
[2023-05-02] MEDS: pantoprazole DR 40 mg Tablet PO (08:09)
[2023-05-02] MEDS: BuSPIRONE 10 mg Tablet PO (08:09)
[2023-05-02] MEDS: gabapentin 300 mg Capsule PO (08:09)
[2023-05-02] MEDS: apixaban 5 mg Tablet 2.5 MG PO (08:09)
[2023-05-02] MEDS: atorvastatin 40 mg Tablet PO (08:09)
[2023-05-02] MEDS: iron polysaccharide complex 150 mg Capsule PO (08:09)
[2023-05-02] MEDS: aspirin 81 mg EC Tablet PO (08:09)
[2023-05-02] MEDS: fluoxetine 20 mg Capsule 60 MG PO (08:09)
[2023-05-02] MEDS: chlorhexidine gluconate 0.12% Btl 473 mL 30 ML MUCOUS MEM ×2 (08:12→12:05)
[2023-05-02] MEDS: mupirocin oint 22 gm 1 APPLIC NASAL (08:12)
--- NOTE | 2023-05-02 08:43 | P.PN_ITS ---
Subjective 2 Subjective: Perry reports he is doing okay this morning. He does have some pain in his left hip. He states he was able to get up yesterday with physical therapy. Medications: Reviewed: Yes Vitals/I&O/Wt Last Vital Signs Temp 97.7 F 05/02/23 04:00 Pulse 80 05/02/23 08:00 Resp 16 05/02/23 08:00 BP 168/83 05/02/23 04:00 Pulse Ox 93 05/02/23 08:00 O2 Del Method Nasal Cannula 05/02/23 08:00 O2 Flow Rate 2 05/02/23 08:00 05/01/23 05/02/23 05/02/23 22:59 06:59 14:59 Intake Total 750 / 2880 1143.333 / 4023.333 Output Total 800 / 1050 900 / 1950 Balance -50 / 1830 243.333 / 2073.333 Weight last 48 hrs Weight 145.467 kg Weight 131.542 kg Weight 131.542 kg Physical Exam 2 Narrative: General exam Neck is supple Cardiovascular regular rate and rhythm Lungs clear with some diminished breath sounds bilaterally Abdomen is soft with positive bowel sounds Extremities no cyanosis clubbing or edema, dressing left hip clean and dry, no evidence of left foot drop Urinary Catheter Management: Mukherjee: Cath Placed During This Visit: yes Reason for Continuing Indwelling Catheter: Perioperative Use in Selected Surgeries Urinary Catheter Date of Insertion: 05/01/23 Urinary Catheter Time of Insertion: 07:25 Data 05/02/23 05:21 05/02/23 05:21 A&P Assessment and plan (1) Degenerative joint disease of left hip: Postoperative day #1 status post left total hip arthroplasty There have been no apparent complications Minor acute blood loss anemia postsurgery. No need for transfusion (2) COPD (chronic obstructive pulmonary disease): Patient has underlying COPD Budesonide twice daily DuoNeb every 6 hours as needed (3) CKD (chronic kidney disease): Patient with chronic kidney disease Hold anti-inflammatories Recheck BMP tomorrow (4) History of coronary angioplasty with insertion of stent: Continue statin Continue beta-lee Continue aspirin 81 mg daily Plan Hypertension. Okay to restart his HCTZ today. I have ordered this. Other medical problems as outlined in past medical history Thank you for this consultation, we will continue to follow Attestations 2 Medical Necessity Statement*: As per primary Diagnoses Degenerative joint disease of left hip M16.12 COPD (chronic obstructive pulmonary disease) J44.9 CKD (chronic kidney disease) N18.9 History of coronary angioplasty with insertion of stent Z95.5 Time Spent (min) 21
[2023-05-02] MEDS: hydroCHLOROthiazide 25 mg Tablet 12.5 MG PO (09:00)
--- NOTE | 2023-05-02 10:03 | PC.CHAP ---
Pastoral Care Encounter/Spiritual Assessment Type of Contact [] Declined computer systems security analyst visit [] Patient/Family/Request visit [] Outpatient visit [] Follow-up visit [] Physician referral [] Code/Alert [] Routine visit [] Staff referral [] Actively dying [x] Patient sleeping [] Family support [] [] Out of room [] Palliative care [] [] Receiving care in room [] Pre-surgical visit [] Trauma [] Long length of stay [] ICU visit [] Other: Relational/Emotional Strength [] Patient feels connected with others/family/visitors/staff [] Distress [] Loneliness/isolation [] Abandonment Spirituality of Patient [] Person of Antonia [] Attends Faith of their Antonia [] Believes in Prayer [] Reads Bible or Congregation materials [] There are Spiritual issues to be addressed Glass Belt Sander Interventions [] Prayer [] Active listening [] Non-anxious presence [] Spiritual/emotional support [] Crisis/trauma care [] Spiritual counseling [] Bereavement support [] Provided bereavement packet [] Provided Bible/devotional materials [] Provided toy/stuffed animal, coloring book to patient or family member [] Provided Communion [] Anointing/[place] [] Salvation [] Completed spiritual assessment [] Other: Impact on Illness or Injury [] Angry [] Fearful [] Anxious [] Often cries [] Exhaustion [] Unable to work [] Unable to attend moravian [] Unable to walk/stand [] Unable to read [] Unable to drive [] Unable to eat/drink [] Unable to sleep [] Unable to be with family [] Patient intubated [] Other: Summary Time spent with patient
[2023-05-02] MEDS: lactated ringers 1,000 ML 100 ML IV (12:05)
--- NOTE | 2023-05-02 12:40 | PM.DCS ---
Discharge Providers Date of Admission: 05/01/23 10:07 Date of Discharge: May 02, 2023 Attending Provider at Admission: Serjio Raygoza DO Attending Provider at Discharge: Serjio Raygoza DO Consults: Dr Ying-internal medicine Primary Care Provider: Barbara Longo DO Diagnoses at Discharge Discharge Diagnosis (1) Degenerative joint disease of left hip: Status: Resolved (2) COPD (chronic obstructive pulmonary disease): Status: Acute (3) CKD (chronic kidney disease): Status: Acute (4) History of coronary angioplasty with insertion of stent: Status: Acute Reason for Visit Reason for Visit: M16.12 Brief History: s/p L MAT Hospital Course Hospital Course Patient was brought to the hospital through the preoperative holding area with plan for Left total hip arthroplasty for [ left] hip dengerative joint disease. Once cleared by anesthesia for surgery subsequently was taken back to the operative suite underwent anesthesia per the anesthesia department and then underwent [ left] total hip arthroplasty with Sea robotic assistance posterior approach without any complications. Patient was then subsequently taken back to PACU in stable condition recovering well. Once recovered, patient was then subsequently admitted to the floor postoperatively. Internal medicine was consulted for medical management assistance. Patient weightbearing as tolerated to the left lower extremity, posterior hip precautions. PT/OT. Pain control. DVT prophylaxis. Postoperative antibiotics and TXA. dressing was change as needed. Internal medicine was on board and appreciate their medical management and assistance. Pt was determined on postoperative day [1 ] the patient was stable for discharge from orthopedic as well as internal medicine standpoint. Patient's labs were monitored daily. Patient will receive appropriate pain medication as well as DVT prophylaxis postoperatively. Appropriate discharge instructions as well. Patient was then discharged in stable condition. Patient will discharge home. Pt will follow-up with Orthopedics in the office in 2 weeks. Patient understands and agrees with current plan. All questions answered. Understands there is any issues or concerns and contact the office. Physical Exam Narrative: Left Hip exam: dressing SERGO clean dry and intact, can wiggle toes, PF & DF ankle, Distal pulses palpable, normal postop swelling, compartments soft and compressible LLE warm adn well perfused Urinary Catheter Management: Mukherjee: Cath Placed During This Visit: yes, but has since been removed by the nurse Reason for Continuing Indwelling Catheter: Decision to DC Catheter Urinary Catheter Date of Insertion: 05/01/23 Urinary Catheter Time of Insertion: 07:25 Date Urinary Catheter Removed: 05/02/23 Time Urinary Catheter Discontinued: 10:50 Discharge Data Studies Completed and Pending Completed Studies During Hospitalization Category Date Time Status XR hip LT 2-3V wo/w pel* [id number] Routine Exams 05/01/23 10:36 Completed Pending at discharge Category Date Time Status Basic Metabolic Panel AM LABS Lab 05/03/23 04:00 Ordered Basic Metabolic Panel AM LABS Lab 05/04/23 04:00 Ordered Complete Blood Count w/Auto AM LABS Lab 05/03/23 04:00 Ordered Complete Blood Count w/Auto AM LABS Lab 05/04/23 04:00 Ordered Radiology Impressions Hip/Pelvis X-Ray 05/01/23 10:36 IMPRESSION: 1. Patient is status post left total hip arthroplasty without evidence for acute surgical complication. 2. Residual findings as above. Laboratory Results WBC 9.15 10^3/uL (3.29-11.43) 05/02/23 05:21 RBC 3.49 10^6/uL (3.85-5.65) L 05/02/23 05:21 Hgb 10.70 g/dL (11.27-16.99) L 05/02/23 05:21 Hct 33.8 % (37-53) L 05/02/23 05:21 MCV 96.8 fl (82-101) 05/02/23 05:21 MCH 30.7 pg (27-33) 05/02/23 05:21 MCHC 31.7 g/dL (30-55) 05/02/23 05:21 RDW 15.9 % (12.1-15.1) H 05/02/23 05:21 Plt Count 138 10^3/cmm (157-399) L 05/02/23 05:21 MPV 9.6 fL (7.4-10.4) 05/02/23 05:21 Neut % (Auto) 79.5 % 05/02/23 05:21 Lymph % (Auto) 8.2 % 05/02/23 05:21 Walker % (Auto) 9.7 % 05/02/23 05:21 Eos % (Auto) 2.1 % 05/02/23 05:21 Baso % (Auto) 0.3 % 05/02/23 05:21 Neut # (Auto) 7.27 10^3/uL (1.8-7.7) 05/02/23 05:21 Lymph # (Auto) 0.8 10^3/uL (0.8-4.8) 05/02/23 05:21 Walker # (Auto) 0.9 10^3/uL (0.2-0.9) 05/02/23 05:21 Eos # (Auto) 0.2 10^3/uL (0.0-0.8) 05/02/23 05:21 Baso # (Auto) 0.0 10^3/uL (0.0-0.1) 05/02/23 05:21 Nucleated RBC % (auto) 0 % 05/02/23 05:21 Nucleated RBCs # 0.0 /100WBC 05/02/23 05:21 Sodium 136 mmol/L (136-145) 05/02/23 05:21 Potassium 4.7 mmol/L (3.5-5.1) 05/02/23 05:21 Chloride 103 mmol/L (98-107) 05/02/23 05:21 Carbon Dioxide 24 mmol/L (22-29) 05/02/23 05:21 Anion Gap 13.7 (5-19) 05/02/23 05:21 BUN 27 mg/dL (8-23) H 05/02/23 05:21 Creatinine 1.6 mg/dL (0.7-1.2) H 05/02/23 05:21 GFR Calculation 44.0 mL/min (90-130) L 05/02/23 05:21 Glucose 109 mg/dL (65-115) 05/02/23 05:21 Calculated Osmolality 288 mOsm/kg (285-295) 05/02/23 05:21 Calcium 8.3 mg/dL (8.5-10.5) L 05/02/23 05:21 Blood Type O Positive 05/01/23 06:20 Rho(D) Type Rh positive 05/01/23 06:20 Antibody Screen Negative 05/01/23 06:20 Vitals Last Vital Signs Temp 97.6 F 05/02/23 09:47 Pulse 98 05/02/23 09:47 Resp 17 05/02/23 09:47 BP 124/66 05/02/23 09:47 Pulse Ox 90 05/02/23 09:47 O2 Del Method Nasal Cannula 05/02/23 08:00 O2 Flow Rate 2 05/02/23 08:00 Discharge Plan Discharge Patient Disposition: Home Health Service Condition: Stable Prescriptions: New Eliquis 2.5 mg tablet 2.5 mg PO BID 35 Days Qty: 70 0RF cephalexin 500 mg capsule 500 mg PO Q8H 10 Days Qty: 30 0RF Continued lovastatin 40 mg tablet 40 mg PO DAILY bisacodyl [Dulcolax (bisacodyl)] 5 mg tablet,delayed release (DR/EC) 5 mg PO DAILY PRN (Reason: Constipation) buspirone 10 mg tablet 10 mg PO TID tadalafil 20 mg tablet 20 mg PO DAILY PRN (Reason: Erectile Dysfunction) Rx Instructions: administer approximately 30min before sexual activity; do not use more than 1 dose per 24hrs fluticasone propionate 50 mcg/actuation spray,suspension 1 spray intranasal BID PRN (Reason: Allergy Symptoms) Rx Instructions: administer into each nostril finasteride 5 mg tablet 5 mg PO QDAY Qty: 90 3RF hydralazine 10 mg tablet 10 mg PO .COMPLEX Qty: 120 6RF Rx Instructions: 10 mg PO Take 1 tab three times a day and additional 1 tab if BP> 160/90; baclofen 20 mg tablet 20 mg PO TID PRN (Reason: Muscle Pain) gabapentin 600 mg tablet 300 mg PO TID (DME) Telemetry Nurse Brace See Rx Instructions .Route .MEDSUPPLY Qty: 1 0RF Rx Instructions: As directed hydrochlorothiazide 12.5 mg tablet 12.5 mg PO DAILY mirtazapine 15 mg tablet 15 mg PO BEDTIME tamsulosin 0.4 mg capsule See Rx Instructions .ROUTE .COMPLEX Qty: 180 3RF Dose Instruction: Take 1 capsule by mouth twice daily Rx Instructions: Take 1 capsule by mouth twice daily ergocalciferol (vitamin D2) 1,250 mcg (50,000 unit) Capsule 1,250 mcg PO Q7D Rx Instructions: (on sundays) fluoxetine 20 mg Capsule 60 mg PO DAILY testosterone cypionate 200 mg/mL oil 200 mg IM .EVERY 21 DAYS naloxone [Narcan] 4 mg/actuation spray,non-aerosol 4 mg intranasal Q2M PRN (Reason: opioid overdose) Qty: 2 0RF Rx Instructions: spray 1 dose into ONE nostril; alternate nostrils w each dose until help arrives esomeprazole magnesium 40 mg capsule,delayed release(DR/EC) 40 mg PO BID carvedilol 25 mg tablet 25 mg PO BID Percocet 10-325 mg tablet 1 tab PO Q4H PRN (Reason: Pain) 7 Days Qty: 42 0RF Discharge Orders: Discharge Order (Routine); Ordered 05/02/23 Ordered By: Serjio Raygoza Referrals: [facility] [Other] Serjio Raygoza DO [Physician] - 05/16/23 2:00 pm Discharge Diet: Regular Discharge Activity: Limit activity as instructed Patient Instructions: Cephalexin (By mouth), Ondansetron (By mouth), Apixaban (By mouth), Total Knee Replacement (GEN), Joint Replacement Stoplight, Opioid Safety Activity Restrictions/Additional Instructions: Orthopedic discharge instructions: Larger dressing--Sergo Dressing--Keep dressing on and dry. After 3 days you can remove some of the dressing and shower. disconnect battery pack when showering. Sergo dressing will stay on until follow up appt in 2 weeks. The battery pack for the dressing will at 5-7 days. Battery pack can be removed and discarded once batteries . Okay to shower over dressings if they do become wet these should be removed and new dressings applied Smaller Dressing--Keep incisions clean dry and intact, leave Silverlon bandage dressings on in place for 7 days after that may rinse incisions with warm soapy water pat dry and redress with a dry dressing Weight-bear as tolerated to operative lower extremity Posterior hip precautions as instructed by physical therapy Ice as needed for pain and swelling Take pain medication as prescribed Take antinausea medication as needed Take antibiotic as prescribed Supplement with Citracal vitamin D for bone health and healing Take Colace as needed for constipation Take blood thinner as prescribed (Eliquis) Follow-up in the orthopedic office in 2 weeks Contact the office for any questions or concerns Discharge Attestations Time Spent in Discharge Care*: less than 30 min Quality Metrics Clinical Quality Measures [ No reported AMI, CVA or VTE this stay] Coding Level of Care Code Acute Code for Chg Fwd Diagnoses Degenerative joint disease of left hip M16.12 COPD (chronic obstructive pulmonary disease) J44.9 CKD (chronic kidney disease) N18.9 History of coronary angioplasty with insertion of stent Z95.5
== END 2023-05-02 13:30 | disposition home health service (06) ==
LOC: MEDSURG 10:07
PROVIDERS: Physician Assistant; Admitting Provider Student in an Organized Health Care Education/Training Program; PCP Family Medicine; Visit Provider Student in an Organized Health Care Education/Training Program
PROC: 8E0Y0CZ Robotic Assisted Procedure of Lower Extremity, Open Approach (ICD-10-PCS; CPT 27130; principal; 2023-05-01 07:30)
DX: M16.11 Unilateral primary osteoarthritis, right hip (principal); J44.9 Chronic obstructive pulmonary disease, unspecified; I13.0 Hypertensive heart and chronic kidney disease with heart failure and stage 1 through stage 4 chronic kidney disease, or unspecified chronic kidney disease; N18.9 Chronic kidney disease, unspecified; I50.9 Heart failure, unspecified; Z95.5 Presence of coronary angioplasty implant and graft; N40.1 Benign prostatic hyperplasia with lower urinary tract symptoms; N13.8 Other obstructive and reflux uropathy; E66.9 Obesity, unspecified; Z68.41 Body mass index [BMI] 40.0-44.9, adult; F17.210 Nicotine dependence, cigarettes, uncomplicated
CPT/HCPCS: 20985; 27130; 36415; 51702; 73502; 80048; 81025; 85025; 86850; 86900; 94640; 97110; 97116; 97161; 97165; 97530; C1776; G0378; J0131; J0690; J1170; J1885; J2371; J2704; J3370; J3490; J7030; J7120; J7626

== ENCOUNTER → 2023-05-16 14:05 | Outpatient (BNVA) | payer MEDICARE, OTHER, SELFPAY | PROVIDERS: PCP Family Medicine; Visit Provider Student in an Organized Health Care Education/Training Program | DX: Z96.642 Presence of left artificial hip joint (principal); Z46.89 Encounter for fitting and adjustment of other specified devices; M17.12 Unilateral primary osteoarthritis, left knee | CPT/HCPCS: 73502; 97760; 99024; L1851 ==

== ENCOUNTER 2023-05-16 15:25 | Outpatient (CLI) | payer MEDICARE, OTHER, SELFPAY | END 2023-05-16 15:26 | disposition home or self-care (01) | LOC: SPT 15:26 | PROVIDERS: PCP Family Medicine; Visit Provider Student in an Organized Health Care Education/Training Program | DX: Z46.89 Encounter for fitting and adjustment of other specified devices (principal); M17.12 Unilateral primary osteoarthritis, left knee | CPT/HCPCS: 97760; 99024; L1851 ==

== ENCOUNTER → 2023-07-04 11:13 | Outpatient (BNVA) | payer MEDICARE, OTHER, SELFPAY | PROVIDERS: PCP Family Medicine; Visit Provider Physician Assistant | DX: Z96.642 Presence of left artificial hip joint (principal) | CPT/HCPCS: 73502; 99024 ==

== ENCOUNTER 2023-07-20 15:47 | Inpatient (IN) | payer MEDICARE, OTHER, SELFPAY ==
[2023-07-20] VITALS (15 sets, daily range): BP systolic 122–172; BP diastolic 69–102; PULSE 58–73; RESP 18–22; TEMP 36.4–36.6; O2SAT 91–96; BMI 40.6
--- NOTE | 2023-07-20 16:01 | XRR_ITS ---
PROCEDURE INFORMATION: Exam: XR Chest Exam date and time: 07/20/2023 4:38 PM Age: 62 years old Clinical indication: Dyspnea; Prior surgery; Surgery date: 6+ months; Surgery type: Cervical; Additional info: Dyspnea/cough TECHNIQUE: Imaging protocol: Radiologic exam of the chest. Views: 1 view. COMPARISON: CR (CHEST, ) 11/28/2021 4:56 AM FINDINGS: Lungs: Right basilar opacity. Pleural spaces: Small volume right pleural effusion. No pneumothorax. Heart/Mediastinum: Cardiomegaly. Bones/joints: ACDF and posterior spinal fusion hardware noted in the cervical spine. XR/XR chest 1V portable [id number] IMPRESSION: Small volume right pleural effusion with right basilar opacity either atelectasis or pneumonia.
--- NOTE | 2023-07-20 16:11 | W.ED.WEAKNES ---
HPI - Weakness General: Chief complaint: Weakness Stated complaint: weakness Time Seen by Provider: 07/20/23 15:51 Source: patient Mode of arrival: EMS History of Present Illness: 60-year-old male presents emergency room with increased weakness swelling in his lower extremities been progressively worse over the last few days. He has some PND or and orthopnea as well. Patient is drowsy difficult to arouse when I came in room his sats on 3 L were in the upper 80s after aggressive verbal stimuli and sitting the patient up we were able to get him to arouse better and answer some questions he is a former very heavy drinker he states he is down to just a couple of beers a day most days. He has chronic back pain and took a Percocet before coming in as well. Denies any chest pain no fever sweats or chills he denies any chronic liver disease or cirrhosis from his previous heavy drinking. Complaint: generalized weakness Onset (ago): day(s) (3) Location: generalized Relieving factors: none Exacerbating factors: none Associated symptoms: Reports confusion; Denies chest pain, chills, melena, decreased appetite, diaphoresis, dysuria, easy bruising, fever(s), headache(s), myalgias, nausea, rash, short of breath, syncope or vomiting Review of Systems Const: Reports: fatigue and malaise; Denies: fever(s), chills or diaphoresis Card: Denies: chest pain or syncope Resp: Denies: dyspnea GI: Denies: abdominal pain, nausea, vomiting or melena : Denies: dysuria, urinary frequency or urinary urgency Musc: Denies: neck pain or back pain Skin/Breast: Denies: rash Neuro: Reports: confusion; Denies: headache(s) Basilio/Lymph: Denies: easy bruising PFSH ED PFSH: Medical History Ganglion cyst of volar aspect of right wrist Cubital tunnel syndrome, bilateral CO2 narcosis Pressure ulcers of skin of multiple topographic sites Venous (peripheral) insufficiency Diverticulosis Colon polyps Esophageal candidiasis BPH loc w urin obs/LUTS Alcoholism Obesity Chronic pain Depression with anxiety DJD (degenerative joint disease) Aortic stenosis GERD (gastroesophageal reflux disease) CRI (chronic renal insufficiency) CHF (congestive heart failure) COPD (chronic obstructive pulmonary disease) HTN (hypertension) Sleep apnea LVH (left ventricular hypertrophy) DDD (degenerative disc disease) CKD (chronic kidney disease) Surgical History Previous back surgery x 4 History of right knee joint replacement History of nasal surgery Hx of tonsillectomy History of aortic aneurysm repair History of coronary angioplasty with insertion of stent Family History Mother , in early 70's Heart attack Father No problems noted. Other CAD (coronary artery disease) Social History Smoking and tobacco/nicotine status: current every day tobacco/nicotine user cigarettes Packs smoked per day: 3 Alcohol intake: current Alcohol intake frequency: few times a month Alcohol type: beer Substance/Drug Use: never Household members: significant other Marital status: Marital status details: No longer with his in last 5 years, who takes care of his financials Current occupational status: disabled Physical Exam Const: ORIENTATION/CONSCIOUSNESS: Yes confused HENMT: COMMON NORMALS: normocephalic, atraumatic and hearing grossly normal bilaterally HEAD & SCALP: normocephalic and atraumatic Resp: COMMON NORMALS: normal respiratory effort, No retractions and No use of accessory muscles AUSCULTATION: crackles, wheezes and diminished lung sounds Cardio: COMMON NORMALS: regular rate, regular rhythm and No murmurs present (Cardio) RATE: regular rate RHYTHM: regular rhythm GI: COMMON NORMALS: Soft to palpation and No hepatosplenomegaly present AUSCULTATION: Yes normoactive bowel sounds PALPATION: Yes Soft to palpation, No Tenderness to palpation present (GI), No Guarding due to palpation present (GI) and Yes No hepatosplenomegaly present Extremity: COMMON NORMALS: normal to inspection, capillary refill normal, no clubbing, cyanosis or edema, no calf tenderness and no pedal edema Skin: COMMON NORMALS: no rashes or lesions noted GENERAL SKIN EXAM: no rashes or lesions noted Course Vital Signs: Vital signs: Vital Signs Temperature 97.5 F L 07/20/23 15:53 Pulse Rate 63 07/20/23 18:31 Respiratory Rate 18 07/20/23 16:18 Blood Pressure 136/74 07/20/23 18:31 Pulse Oximetry 96 07/20/23 18:31 Oxygen Delivery Me thod BiPAP 07/20/23 18:31 Oxygen Flow Rate 3 07/20/23 16:18 Fraction of Inspir ed Oxygen 28 07/20/23 18:31 MDM - Weakness Medical Decision Making Acute hypercapnic respiratory failure with hypoxia and some evidence of pneumonia as well as elevated BNP. Discussing with family patient still smokes 3 packs a day has not been following his medication regimen at home. He does admit to history of heavy drinking but is down to 2 beers a day now. Patient will be admitted discussed with hospitalist and family orders written. lactate respiratory panel are pending he has been started on ceftriaxone and Zithromax given 40 of IV Lasix Lab Data 07/20/23 16:24 07/20/23 16:24 Radiology Impressions Chest X-Ray 07/20/23 16:01 IMPRESSION: Small volume right pleural effusion with right basilar opacity either atelectasis or pneumonia. Laboratory Results WBC 6.61 10^3/uL (3.29-11.43) 07/20/23 16:24 RBC 4.42 10^6/uL (3.85-5.65) 07/20/23 16:24 Hgb 11.10 g/dL (11.27-16.99) L 07/20/23 16:24 Hct 40.3 % (37-53) 07/20/23 16:24 MCV 91.2 fl (82-101) 07/20/23 16:24 MCH 25.1 pg (27-33) L 07/20/23 16:24 MCHC 27.5 g/dL (30-55) L 07/20/23 16:24 RDW 16.3 % (12.1-15.1) H 07/20/23 16:24 Plt Count 232 10^3/cmm (157-399) 07/20/23 16:24 MPV 9.2 fL (7.4-10.4) 07/20/23 16:24 Neut % (Auto) 65.8 % 07/20/23 16:24 Lymph % (Auto) 17.7 % 07/20/23 16:24 [place] % (Auto) 10.9 % 07/20/23 16:24 Eos % (Auto) 4.5 % 07/20/23 16:24 Baso % (Auto) 0.8 % 07/20/23 16:24 Neut # (Auto) 4.35 10^3/uL (1.8-7.7) 07/20/23 16:24 Lymph # (Auto) 1.2 10^3/uL (0.8-4.8) 07/20/23 16:24 [place] # (Auto) 0.7 10^3/uL (0.2-0.9) 07/20/23 16:24 Eos # (Auto) 0.3 10^3/uL (0.0-0.8) 07/20/23 16:24 Baso # (Auto) 0.1 10^3/uL (0.0-0.1) 07/20/23 16:24 Nucleated RBC % (auto) 0 % 07/20/23 16:24 Nucleated RBCs # 0.0 /100WBC 07/20/23 16:24 PT 13.10 SECONDS (12.1-14.9) 07/20/23 16:24 INR 0.96 (0.8-1.2) 07/20/23 16:24 Specimen Type Arterial 07/20/23 16:20 Sample Site Radial, left 07/20/23 16:20 ABG pH 7.23 (7.35-7.45) L 07/20/23 16:20 ABG pCO2 79.8 mmHg (35-45) H* 07/20/23 16:20 ABG pO2 85.1 mmHg (80.0-100.0) 07/20/23 16:20 ABG PO2/FiO2 Ratio 0 07/20/23 16:20 ABG HCO3 33.3 mmol/L (22-26) H 07/20/23 16:20 ABG O2 Saturation 97.5 07/20/23 16:20 ABG Base Excess 4.0 mmol/L (-2.0-2.0) H 07/20/23 16:20 Augustine Test Pos 07/20/23 16:20 A-a O2 Gradient 6.0 mmHg (5-10) 07/20/23 16:20 Hematocrit 31.9 % (42-52) L 07/20/23 16:20 Hgb O2 Saturation 86.3 % (95-100) L 07/20/23 16:20 Carboxyhemoglobin 10.8 %THgb (0.4-20.1) 07/20/23 16:20 Methemoglobin 0.6 % (0.4-1.5) 07/20/23 16:20 Total Hemoglobin 10.4 g/dL (14-18) L 07/20/23 16:20 Sodium 142.0 mmol/L (131-143) 07/20/23 16:20 Potassium 4.6 mmol/L (3.5-5.0) 07/20/23 16:20 Glucose 115.0 mg/dL (70-115) 07/20/23 16:20 Ionized Calcium 1.3 mmol/L (1.1-1.4) 07/20/23 16:20 O2 Delivery Device Nc 07/20/23 16:20 O2 Liters/Min 3.0 % 07/20/23 16:20 FiO2 32.0 % 07/20/23 16:20 Water Resources Project Manager ID [email or web address] 07/20/23 16:20 Sodium 140 mmol/L (136-145) 07/20/23 16:24 Potassium 4.8 mmol/L (3.5-5.1) 07/20/23 16:24 Chloride 99 mmol/L (98-107) 07/20/23 16:24 Carbon Dioxide 33 mmol/L (22-29) H 07/20/23 16:24 Anion Gap 12.8 (5-19) 07/20/23 16:24 BUN 22 mg/dL (8-23) 07/20/23 16:24 Creatinine 1.6 mg/dL (0.7-1.2) H 07/20/23 16:24 GFR Calculation 44.0 mL/min (90-130) L 07/20/23 16:24 Glucose 113 mg/dL (65-115) 07/20/23 16:24 Calculated Osmolality 294 mOsm/kg (285-295) 07/20/23 16:24 Lactic Acid 0.9 mmol/L (0.5-2.2) 07/20/23 16:11 Calcium 8.9 mg/dL (8.5-10.5) 07/20/23 16:24 Total Bilirubin 0.3 mg/dL (0.15-1.2) 07/20/23 16:24 AST 10 U/L (0-40) 07/20/23 16:24 ALT 11 U/L (0-41) 07/20/23 16:24 Alkaline Phosphatase 183 U/L (40-130) H 07/20/23 16:24 Ammonia 56 umol/L (16-60) 07/20/23 16:24 Troponin T Baseline 26 ng/L (0-15) H 07/20/23 16:24 NT-Pro-B Natriuret Pep 1197 pg/mL (0-125) H 07/20/23 16:24 Total Protein 7.0 g/dL (6.6-8.7) 07/20/23 16:24 Albumin 3.6 g/dL (3.5-5.2) 07/20/23 16:24 Globulin 3.4 g/dL (1.3-4.6) 07/20/23 16:24 Procalcitonin 0.12 ng/mL (0-0.5) 07/20/23 16:24 Ethyl Alcohol < 10 mg/dL (0-10) 07/20/23 16:24 All radiology interpretation(s) finalized by discharge Discharge Plan Discharge Patient Disposition: Admitted As Inpatient Admit Provider: Kellee Chapa Clinical Impression: Acute on chronic respiratory failure with hypoxia and hypercapnia, Pneumonia, COPD with acute exacerbation Congestive heart failure Qualifiers: Heart failure type: diastolic Heart failure chronicity: chronic Qualified Code(s): I50.32 - Chronic diastolic (congestive) heart failure Condition: Stable Coding Level of Care Code ED Salvage Winder And Inspector for Rom Gupta
--- NOTE | 2023-07-20 16:12 | ECG_ITS ---
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 Measurements Intervals [place] Rate: 68 P: 77 HI: 204 QRS: 60 QRSD: 142 T: 28 QT: 449 QTc: 478 Interpretive Statements SINUS RHYTHM WITH OCCASIONAL VENTRICULAR PREMATURE COMPLEXES INTRAVENTRICULAR CONDUCTION DELAY [130+ ms QRS DURATION] Compared to ECG 11/28/2021 04:43:03 Ventricular premature complex(es) now present Myocardial infarct finding no longer present Electronically Signed On 07-20-2023 16:14:42 CDT by Daniel Null M.D. [id number]
[2023-07-20] MEDS: ipratropium-albuterol 3 mL Neb INHALATION ×2 (16:16→19:44)
[2023-07-20 16:31] LABS: Basophils # 0.1 10^3/uL (0.0-0.1); Basophils % 0.8 %; Eosinophils # 0.3 10^3/uL (0.0-0.8); Eosinophils % 4.5 %; Hematocrit 40.3 % (37-53); Lymphocytes # 1.2 10^3/uL (0.8-4.8); Lymphocytes % 17.7 %; Mean Corpuscular HGB Conc 27.5 g/dL (30-55); Mean Corpuscular Hemoglobin 25.1 pg (27-33); Mean Corpuscular Volume 91.2 fl (82-101); Mean Platelet Volume 9.2 fL (7.4-10.4); Monocytes # 0.7 10^3/uL (0.2-0.9); Monocytes % 10.9 %; Neutrophils # 4.35 10^3/uL (1.8-7.7); Neutrophils % 65.8 %; Nucleated Red Blood Cells % 0 %; Platelet Count 232 10^3/cmm (157-399); Red Blood Count 4.42 10^6/uL (3.85-5.65); Red Cell Distribution Width 16.3 % (12.1-15.1); White Blood Count 6.61 10^3/uL (3.29-11.43)
[2023-07-20 16:33] LABS: ABG PH Result 7.23 (7.35-7.45); Arterial Blood Gas Hematocrit 31.9 % (42-52); Blood Gas Allen Test Pos; Blood Gas Operator Identificat glc; Blood Gas Sample Site Radial, left; Blood Gas Sample Type Arterial; Carboxyhemoglobin 10.8 %THgb (0.4-20.1); HCO3 ABG 33.3 mmol/L (22-26); HGB O2 Sat 86.3 % (95-100); Ionized Calcium Level - ABG 1.3 mmol/L (1.1-1.4); Methemoglobin 0.6 % (0.4-1.5); Oxygen Device NC; Oxygen Saturation ABG 97.5; PO2 ABG 85.1 mmHg (80.0-100.0); PO2 FiO2 Ratio Arterial Blood 0; Potassium Level - ABG 4.6 mmol/L (3.5-5.0); Total Hemoglobin 10.4 g/dL (14-18)
[2023-07-20 16:34] LABS: ABG PCO2 79.8 mmHg (35-45)
[2023-07-20 16:52] LABS: Troponin(5th) Baseline 26 ng/L (0-15)
[2023-07-20 17:01] LABS: Alanine Aminotransferase 11 U/L (0-41); Albumin Level 3.6 g/dL (3.5-5.2); Alkaline Phosphatase 183 U/L (40-130); Anion Gap 12.8 (5-19); Aspartate Amino Transferase 10 U/L (0-40); Blood Urea Nitrogen 22 mg/dL (8-23); Calcium 8.9 mg/dL (8.5-10.5); Carbon Dioxide 33 mmol/L (22-29); Chloride 99 mmol/L (98-107); Creatinine Clr Calc Pharmacy 68.3795; Globulin 3.4 g/dL (1.3-4.6); Glucose 113 mg/dL (65-115); NT Pro B Type Natriuretic Pept 1197 pg/mL (0-125); Osmolality Calculated 294 mOsm/kg (285-295); Potassium 4.8 mmol/L (3.5-5.1); Sodium 140 mmol/L (136-145); Total Bilirubin 0.3 mg/dL (0.15-1.2)
[2023-07-20 17:03] LABS: Alcohol Level < 10 mg/dL (0-10)
[2023-07-20 17:11] LABS: Ammonia 56 umol/L (16-60)
[2023-07-20 17:14] LABS: Procalcitonin 0.12 ng/mL (0-0.5)
[2023-07-20 17:37] LABS: Lactic Sepsis W/Reflex 0.9 mmol/L (0.5-2.2)
--- NOTE | 2023-07-20 17:57 | PM.HP ---
Providers/Chief Complaint Admitting Physician: Kellee Chapa MD Primary Care Provider: Barbara Longo DO Chief Complaint: weakness History of Present Illness Perry Norman is a 62 year old male with past medical history of COPD on supplemental oxygen at 3 L nasal cannula at home, CHF, CKD, BPH, GERD, CO2 narcosis, morbidly obese, hypertension, dyslipidemia, obstructive sleep apnea, aortic stenosis, s/p aortic aneurysm repair, active smoker 3 PPD was brought in by EMS for altered mental status. He was found to be drowsy and difficult to arouse by a family member. On arrival to ER his oxygen saturation on 3 L were in the 80s and he was arousable only to aggressive verbal stimuli. His pCO2 was 80 and he was started on BiPAP. Unable to obtain history due to altered mental status. Family friend who is present at bedside reports he has been noncompliant with diet/fluid restrictions, medication intake recently and smokes 3 packs of cigarettes per day. There is no history of fever, cold, cough, chest pain, shortness of breath, urinary or bowel complaints. There is no history of sick contacts or recent travel. He was recently hospitalized in 05/06 for total left hip replacement secondary to degenerative joint disease. On arrival to ER he was found to have ABG 7 point 2/79/85/33/86% on room air. Normal WBC count, creatinine of 1.6, BNP 1197, procalcitonin 0.12, ethyl alcohol less than 10. Chest x-ray showed small volume right pleural effusion with right basilar opacity either atelectasis or pneumonia. 2D echo 07/04 Normal LV size ejection fraction of 65%. Abnormal septal motion consistent with conduction abnormality. Moderate left ventricular hypertrophy. Type II diastolic dysfunction. Moderate aortic valve stenosis. Peak velocity of 2.64 m/s with a peak gradient of 28 and a mean gradient of 13 mmHg. Aortic valve area was calculated to be 1.3 cm squared. Mild aortic valve regurgitation. Mild mitral annular calcification. Mildly dilated right atrium and right ventricle with normal RV ejection fraction There is no pericardial effusion. Review of Systems General: Reports: ROS unobtainable due to mental status Medications/Allergies Home Medications Medication Instructions Recorded Confirmed Last Taken Type bisacodyl 5 mg tablet,delayed 5 mg PO DAILY PRN Constipation 03/05/19 07/04/23 09/16/20 History release (Dulcolax (bisacodyl)) lovastatin 40 mg tablet 40 mg PO DAILY 03/05/19 07/04/23 04/30/23 History ergocalciferol (vitamin D2) 1,250 1,250 mcg PO Q7D 05/25/20 07/04/23 04/30/23 History mcg (50,000 unit) capsule fluoxetine 20 mg capsule 60 mg PO DAILY 05/25/20 07/04/23 04/30/23 History buspirone 10 mg tablet 10 mg PO TID 06/12/20 07/04/23 04/30/23 History tadalafil 20 mg tablet 20 mg PO DAILY PRN Erectile 06/12/20 07/04/23 04/30/23 History Dysfunction fluticasone propionate 50 1 spray intranasal BID PRN Allergy 10/28/20 07/04/23 04/30/23 History mcg/actuation nasal Symptoms spray,suspension testosterone cypionate 200 mg/mL 200 mg IM .EVERY 21 DAYS 06/23/21 07/04/23 Unknown History intramuscular oil naloxone 4 mg/actuation nasal 4 mg intranasal Q2M PRN opioid 06/27/21 07/04/23 Unknown Rx spray (Narcan) overdose #2 ea finasteride 5 mg tablet 5 mg PO QDAY #90 tabs 07/29/21 07/04/23 04/30/23 Rx hydralazine 10 mg tablet 10 mg PO .COMPLEX #120 tabs 08/05/21 07/04/23 04/30/23 Rx baclofen 20 mg tablet 20 mg PO TID PRN Muscle Pain 01/31/22 07/04/23 04/30/23 History gabapentin 600 mg tablet 300 mg PO TID 01/31/22 07/04/23 04/30/23 History esomeprazole magnesium 40 mg 40 mg PO BID 02/17/22 07/04/23 04/30/23 History capsule,delayed release tamsulosin 0.4 mg capsule See Rx Instructions .Route 02/24/22 07/04/23 04/30/23 Rx .COMPLEX #180 caps Dental Biller Brace #1 ea 08/08/22 07/04/23 Unknown Rx hydrochlorothiazide 12.5 mg tablet 12.5 mg PO DAILY edema 01/30/23 07/04/23 04/30/23 History mirtazapine 15 mg tablet 15 mg PO BEDTIME 03/17/23 07/04/23 04/30/23 History carvedilol 25 mg tablet 25 mg PO BID 05/02/23 07/04/23 05/01/23 History oxycodone-acetaminophen 10 mg-325 1 tab PO Q4H PRN Pain 7 days #42 05/02/23 07/04/23 Unknown Rx mg tablet (Percocet) tabs LEFT [facility]NEE [facility] H[facility]/HOME HEALTH AIDE BRACE #1 ea 05/16/23 07/04/23 Unknown Rx Allergies Allergy/AdvReac Type Severity Reaction Status Date / Time adhesive tape Allergy Mild ALGY-Rash Verified 07/20/23 15:59 ciprofloxacin Allergy Unknown Unknown Verified 07/20/23 15:59 Forced Air Heat Allergy Mild Difficulty Uncoded 07/20/23 15:59 breathing; dries up sinuses. PFSH Acute PFSH: Medical History Ganglion cyst of volar aspect of right wrist Cubital tunnel syndrome, bilateral CO2 narcosis Pressure ulcers of skin of multiple topographic sites Venous (peripheral) insufficiency Diverticulosis Colon polyps Esophageal candidiasis BPH loc w urin obs/LUTS Alcoholism Obesity Chronic pain Depression with anxiety DJD (degenerative joint disease) Aortic stenosis GERD (gastroesophageal reflux disease) CRI (chronic renal insufficiency) CHF (congestive heart failure) COPD (chronic obstructive pulmonary disease) HTN (hypertension) Sleep apnea LVH (left ventricular hypertrophy) DDD (degenerative disc disease) CKD (chronic kidney disease) Surgical History Previous back surgery x 4 History of right knee joint replacement History of nasal surgery Hx of tonsillectomy History of aortic aneurysm repair History of coronary angioplasty with insertion of stent Family History Mother , in early 70's Heart attack Father No problems noted. Other CAD (coronary artery disease) Social History Smoking and tobacco/nicotine status: current every day tobacco/nicotine user cigarettes Packs smoked per day: 3 Alcohol intake: current Alcohol intake frequency: few times a month Alcohol type: beer Substance/Drug Use: never Household members: significant other Marital status: Marital status details: No longer with his in last 5 years, who takes care of his financials Current occupational status: disabled Vitals/I&O/Wt Last Vital Signs Temp 97.5 F L 07/20/23 15:53 Pulse 62 07/20/23 16:43 Resp 18 07/20/23 16:18 BP 122/69 07/20/23 15:53 Pulse Ox 93 07/20/23 16:43 O2 Del Method Nasal Cannula 07/20/23 16:18 O2 Flow Rate 3 07/20/23 16:18 FiO2 32 07/20/23 16:43 Weight last 48 hrs Weight 136.078 kg Physical Exam Narrative: He is drowsy but arousable to aggressive verbal and tactile stimuli Chest air entry equal on both sides, bilateral scattered rhonchi and wheezing present Cardiovascular normal heart sounds no murmurs Abdomen soft distended nontender normal bowel sounds Extremities 3+ bilateral lower extremity pitting edema present Data 07/20/23 16:24 07/20/23 16:24 A&P Assessment and plan (1) Acute on chronic respiratory failure with hypoxia and hypercapnia: (2) COPD exacerbation: (3) Cigarette smoker: (4) CKD (chronic kidney disease): (5) Altered mental state: (6) CHF (congestive heart failure): Qualifiers: Heart failure type: diastolic Heart failure chronicity: chronic Qualified Code(s): I50.32 - Chronic diastolic (congestive) heart failure Plan 62 year old male with past medical history of COPD on supplemental oxygen 3 LNC at home, CHF, CKD, BPH, GERD, CO2 narcosis, morbidly obese, hypertension, dyslipidemia, obstructive sleep apnea, aortic stenosis, s/p aortic aneurysm repair, active smoker 3 PPD was brought in by EMS for altered mental status and found to have oxygen saturation in 80s ,pCO2 of 80, BNP 1197 and chest x-ray consistent with fluid overload likely secondary to acute CHF exacerbation/acute on chronic hypoxic and hypercarbic respiratory failure/pneumonia. 1. Altered mental status likely secondary to acute hypoxic and hypercarbic respiratory failure secondary to acute congestive heart failure/pneumonia. Admit to CSU with continuous telemetry monitoring Continue BiPAP , check ABG in 1 hour will continue IV ceftriaxone 1 g daily and IV azithromycin 500 mg daily Follow-up respiratory panel DuoNebs every 6 hours IV Solu-Medrol 80 mg twice daily IV Lasix 40 mg twice daily Will check 2D echo Strict I's and O's Daily BMP Daily weight 2. CKD-creatinine 1.6, at baseline 3. Hypertension-resume home medication , Coreg and hydralazine, hold HCTZ 4. Hyperlipidemia-hold lovastatin 5. BPH-hold Flomax and finesteride. N.p.o. for now, will resume diet once alert and awake and off BiPAP. DVT prophylaxis with subcutaneous heparin GI prophylaxis with IV Pepcid twice daily He is full code for now Attestations Medical Necessity Statement*: He needs continued hospitalization crossing 2 midnights for management of acute hypoxic and hypercarbic respiratory failure with IV antibiotics and respiratory support BiPAP. Time Spent in Patient Care: 50 minutes Coding Level of Care Code Acute Code for [facility] Diagnoses Acute on chronic respiratory failure with hypoxia and hypercapnia J96.21; J96.22 COPD exacerbation J44.1 Cigarette smoker F17.210 CKD (chronic kidney disease) N18.9 Altered mental state R41.82 Chronic diastolic congestive heart failure I50.32 Heart failure type: diastolic Heart failure chronicity: chronic Time Spent (min) 50
--- NOTE | 2023-07-20 18:05 | ECG_ITS ---
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 Measurements Intervals [place] Rate: 59 P: 81 ME: 204 QRS: 66 QRSD: 149 T: 30 QT: 468 QTc: 465 Interpretive Statements SINUS BRADYCARDIA WITH OCCASIONAL VENTRICULAR PREMATURE COMPLEXES POSSIBLE LEFT ATRIAL ENLARGEMENT [-0.1mV P-WAVE IN V1/V2] INTRAVENTRICULAR CONDUCTION DELAY [130+ ms QRS DURATION] Compared to ECG 07/20/2023 16:12:58 Sinus rhythm no longer present Electronically Signed On 07-21-2023 0:41:32 CDT by Daniel Null M.D. [id number]
--- NOTE | 2023-07-20 18:15 | PC.NURSE ---
REPORT CALLED TO GONZALEZ RUDOLPH. TRANSPORT TO THE FLOOR DELAYED PER RESPIRATORY REQUEST.
[2023-07-20 18:16] LABS: INR 0.96 (0.8-1.2)
[2023-07-20 18:21] LABS: ABG PH Result 7.27 (7.35-7.45); Alveolar-Arterial Oxygen Gradi 7.5 mmHg (5-10); Arterial Blood Gas Hematocrit 33.1 % (42-52); Base Excess ABG 4.6 mmol/L (-2.0-2.0); Blood Gas Allen Test Pos; Blood Gas Operator Identificat GD; Blood Gas Sample Site Radial, right; Blood Gas Sample Type Arterial; Carboxyhemoglobin 9.7 %THgb (0.4-20.1); HCO3 ABG 33.2 mmol/L (22-26); HGB O2 Sat 87.1 % (95-100); Ionized Calcium Level - ABG 1.2 mmol/L (1.1-1.4); Methemoglobin 0.3 % (0.4-1.5); Oxygen Device BIPAP; Oxygen Saturation ABG 96.8; PO2 ABG 81.9 mmHg (80.0-100.0); PO2 FiO2 Ratio Arterial Blood 0; Potassium Level - ABG 5.1 mmol/L (3.5-5.0); Total Hemoglobin 10.8 g/dL (14-18)
[2023-07-20] MEDS: cefTRIAXone 1,000 MG in sodium chloride 0.9% (plus) 50 ML 100 MG IV (18:29)
[2023-07-20] MEDS: FUROsemide 10 mg/mL SDV 4mL 40 MG IVP (18:29)
--- NOTE | 2023-07-20 18:34 | USCV_ITS ---
Perry Norman Age: 62 Gender: M : 1960 Exam Date: 07/20/2023 19:52 Ordering Phys: Kellee Chapa MD Technologist: KAL Exam Location: [facility] [place] Indication: acute hypoxia, hypercarbic resp faillure, CHF, BLE edema. Patient is unresponsive on BIPAP in CSU- 105-1. BP: 136 / 74 HR: 77 Rhythm: Mostly AFIB with some strings of sinus rhythm Technical Quality: Suboptimal MEASUREMENTS (Male / Female) Normal Values 2D ECHO LV Diastolic Diameter PLAX 4.8 cm 4.2 - 5.9 / 3.9 - 5.3 cm IVS Diastolic Thickness 1.5 cm 0.6 - 1.0 / 0.6 - 0.9 cm IVS Systolic Thickness 1.9 cm LVPW Diastolic Thickness 1.8 cm 0.6 - 1.0 / 0.6 - 0.9 cm LVPW Systolic Thickness 1.6 cm LVOT Diameter 2.2 cm LV Ejection Fraction 2D Teich 60.7 % LV Ejection Fraction MOD 2C 52.2 % LV Ejection Fraction 2C AL 54.7 % LA Diameter 4.8 cm LA Sys Volume AL 187.8 cm cubed LA Sys Volume Index AL 69.9 cm cubed/m squared Aorta at Sinotubular Diameter 2.8 cm IVC Diameter 2.8 cm M-MODE LA Ao Ratio MM 1.4 AV Cusp Separation MM 0.6 cm DOPPLER AV Peak Velocity 293.3 cm/s LVOT Peak Velocity 72.0 cm/s AV Area Cont Eq vti 1.0 cm squared AV Area Cont Eq pk 1.0 cm squared MV Peak Velocity 143.0 cm/s MV Area PHT 2.8 cm squared Mitral E to A Ratio 1.5 TR Peak Velocity 294.0 cm/s TR Peak Gradient 34.6 mmHg TV Peak E Velocity 63.0 cm/s Right Atrial Pressure 15.0 mmHg Pulmonary Artery Systolic Pressu 49.6 mmHg PV Peak Velocity 89.0 cm/s FINDINGS Left Ventricle Normal left ventricular size, systolic function and wall thickness, with no regional wall motion abnormalities. Grade II/IV diastolic dysfunction, moderately elevated filling pressures. Left ventricular ejection fraction is estimated at 60 %. Right Ventricle Normal right ventricular size and systolic function. Mild pulmonary hypertension, RVSP 49.6 mmHg. Right Atrium Mildly increased right atrial size. Left Atrium Mildly increased left atrial size. Mitral Valve Structurally normal mitral valve. Trace mitral valve regurgitation. Aortic Valve Structurally normal trileaflet aortic valve. Mild to moderate aortic valve regurgitation. Mild aortic valve stenosis, mean gradient 18.6 mmHg, MARISEL 0.97 cm squared. Tricuspid Valve Structurally normal tricuspid valve. Trace to mild tricuspid valve regurgitation. Pulmonic Valve Pulmonic valve not well visualized. Pericardium Normal pericardium without effusion. Aorta Normal ascending aorta dimension. IVC Dilated IVC with decreased respiratory variation. RA pressure 15mmHg CONCLUSIONS Normal left ventricular size, systolic function and wall thickness, with no regional wall motion abnormalities. Grade II/IV diastolic dysfunction, moderately elevated filling pressures. Left ventricular ejection fraction is estimated at 60 %. Normal right ventricular size and systolic function. Mild pulmonary hypertension, RVSP 49.6 mmHg. Mildly increased right atrial size. Mildly increased left atrial size. Structurally normal mitral valve. Trace mitral valve regurgitation. Structurally normal trileaflet aortic valve. Mild to moderate aortic valve regurgitation. Mild aortic valve stenosis, mean gradient 18.6 mmHg, MARISEL 0.97 cm squared. Dilated IVC with decreased respiratory variation. RA pressure 15mmHg. Previous study was June 24, 2021. 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 Aortic valve stenosis is approximately the same to very slightly worse. Dr. Johnson Acevedo MD (Electronically Signed) Final Date: 21 July 2023 12:51 S
[2023-07-20 18:38] LABS: Troponin 5 2HR 24.65 ng/L (0-15)
--- NOTE | 2023-07-20 18:39 | PC.NURSE ---
HS spoke to Bhavesh Norman-Pt's son when he called the ER stating he wanted to make sure his father was not a DNR. He states he will be bringing his platform operations director appointed papers tomorrow morning 07/20 that states he is the DPOA. HS then spoke with Perry Norman and asked if he was ok with his son Perry being a contact on his medical records and able to receive updates on his behalf. He shook his head yes while quietly verbalizing consent. Bhavesh's number is . Son also stated that his stepmother and his father have been for close to a year now, and that he should be primary contact on his fathers condition and updates. HS educated and explained that we would need to get paperwork and such to update any information in his chart, but would pass the message along to CSU for any conditions changes that could happen overnight
[2023-07-20 18:40] LABS: Troponin 5 2HR Delta -1.35 ABS# (0-10)
[2023-07-20 19:23] LABS: Alveolar-Arterial Oxygen Gradi 6.4 mmHg (5-10); Base Excess ABG 4.4 mmol/L (-2.0-2.0); Blood Gas Allen Test Pos; Blood Gas Sample Site Radial, right; Blood Gas Sample Type Arterial; Carboxyhemoglobin 9.2 %THgb (0.4-20.1); HCO3 ABG 32.5 mmol/L (22-26); HGB O2 Sat 85.5 % (95-100); Ionized Calcium Level - ABG 1.2 mmol/L (1.1-1.4); Methemoglobin 0.4 % (0.4-1.5); Oxygen Device BIPAP; Oxygen Saturation ABG 94.6; PO2 ABG 69.4 mmHg (80.0-100.0); PO2 FiO2 Ratio Arterial Blood 0; Potassium Level - ABG 5.1 mmol/L (3.5-5.0); Total Hemoglobin 11.4 g/dL (14-18)
[2023-07-20 19:24] LABS: ABG PCO2 66.5 mmHg (35-45)
[2023-07-20 20:03] LABS: Adenovirus Not Detected (NOT DETECT); Chlamydia Pneumoniae Not Detected (NOT DETECT); Coronavirus 229E,HKU1,NL63,OC4 Not Detected (NOT DETECT); Human Metapneumovirus Not Detected (NOT DETECT); Human Rhinovirus/Enterovirus Not Detected (NOT DETECT); Influenza A Not Detected (NOT DETECT); Influenza A H1 Not Detected (NOT DETECT); Influenza A H1-2009 Not Detected (NOT DETECT); Influenza A H3 Not Detected (NOT DETECT); Influenza B Not Detected (NOT DETECT); Mycoplasma Pneumoniae Not Detected (NOT DETECT); Parainfluenza Virus Type 1 Not Detected (NOT DETECT); Parainfluenza Virus Type 2 Not Detected (NOT DETECT); Parainfluenza Virus Type 3 Not Detected (NOT DETECT); Parainfluenza Virus Type 4 Not Detected (NOT DETECT); Respiratory Syncytial Virus A Not Detected (NOT DETECT); Respiratory Syncytial Virus B Not Detected (NOT DETECT); SARS-COV-2 Not Detected (NOT DETECT)
[2023-07-20] MEDS: hyDRALAzine 10 mg Tablet PO ×2 (20:49→23:57)
[2023-07-20] MEDS: methylPREDNISolone sod succ 125 mg/2 mL INJ 80 MG IVP (20:49)
[2023-07-20] MEDS: famotidine 20 mg/2 mL INJ IVP (20:49)
[2023-07-20] MEDS: heparin 5,000 unit/mL INJ 1 mL 5000 UNIT SUBCUT (20:49)
[2023-07-20] MEDS: azithromycin 500 MG in sodium chloride 0.9% 250 ML 250 MG IV (20:52)
--- NOTE | 2023-07-20 22:31 | ECG_ITS ---
Test Date: 2023-07-20 Pat Name: Perry Norman Department: Room: 105 Gender: Male Entry Level Drafter: : 1960 Requested By: Nirmal Cespedes Order Number: [id number] Bishop MD: Daniel Null M.D. Measurements Intervals [place] Rate: 78 P: 95 VT: 193 QRS: 32 QRSD: 133 T: -1 QT: 405 QTc: 463 Interpretive Statements SINUS RHYTHM WITH FREQUENT VENTRICULAR PREMATURE COMPLEXES POSSIBLE LEFT ATRIAL ENLARGEMENT [-0.1mV P-WAVE IN V1/V2] INTRAVENTRICULAR CONDUCTION DELAY [130+ ms QRS DURATION] Compared to ECG 07/20/2023 18:05:03 Sinus bradycardia no longer present Electronically Signed On 07-21-2023 0:41:04 CDT by Daniel Null M.D. [email or web address]
[2023-07-20 23:00] LABS: Add Urine Culture? No; Add Urine Microscopic? YES; Bilirubin Urine Neg (Negative); Blood Urine Neg (Negative); Glucose Urine UA Norm (Normal); Ketones Urine Negative (Negative); Leukocyte Esterase Urine Negative (Negative); Mucus Urine 1+ /hpf; Nitrate Urine Negative (Negative); Protein Urine 1+ (Negative); Squamous Epithelial Cell Urine 0-4 /hpf (0-5); Urine Appearance Clear (CLEAR); Urine Color Yellow (Yellow); Urobilinogen Urine Neg (Negative); pH Urine 5 (5-7)
[2023-07-21] VITALS (20 sets, daily range): BP systolic 137–169; BP diastolic 77–100; PULSE 62–91; RESP 14–22; TEMP 36.7–36.9; O2SAT 90–97
--- NOTE | 2023-07-21 00:12 | PC.NURSE ---
an order for a tran catheter was place by MD at 2044 this nurse asked pt about tran placement, pt refused placement this nurse educated pt about why MD wanted the placement and pt still refused tran placement
[2023-07-21] MEDS: ipratropium-albuterol 3 mL Neb INHALATION ×4 (02:15→20:47)
[2023-07-21] MEDS: heparin 5,000 unit/mL INJ 1 mL 5000 UNIT SUBCUT ×3 (03:05→17:36)
[2023-07-21 04:10] LABS: Basophils % 0.3 %; Eosinophils % 0.2 %; Hematocrit 38.5 % (37-53); Lymphocytes # 0.8 10^3/uL (0.8-4.8); Mean Corpuscular HGB Conc 27.5 g/dL (30-55); Mean Corpuscular Hemoglobin 24.8 pg (27-33); Mean Platelet Volume 9.6 fL (7.4-10.4); Monocytes # 0.1 10^3/uL (0.2-0.9); Monocytes % 0.9 %; Neutrophils # 5.61 10^3/uL (1.8-7.7); Nucleated Red Blood Cells % 0 %; Platelet Count 225 10^3/cmm (157-399); Red Blood Count 4.28 10^6/uL (3.85-5.65); Red Cell Distribution Width 16.5 % (12.1-15.1); White Blood Count 6.52 10^3/uL (3.29-11.43)
[2023-07-21] MEDS: oxyCODONE-APAP 10-325 mg Tablet 1 TAB PO ×3 (04:40→19:50)
[2023-07-21 04:46] LABS: Slide Review Slide Review Perform
[2023-07-21 04:47] LABS: Anion Gap 13.3 (5-19); Blood Urea Nitrogen 23 mg/dL (8-23); Calcium 9.3 mg/dL (8.5-10.5); Carbon Dioxide 35 mmol/L (22-29); Chloride 99 mmol/L (98-107); Glucose 133 mg/dL (65-115); NT Pro B Type Natriuretic Pept 829 pg/mL (0-125); Osmolality Calculated 298 mOsm/kg (285-295); Potassium 6.3 mmol/L (3.5-5.1); Sodium 141 mmol/L (136-145)
[2023-07-21 04:58] LABS: ABG PCO2 51.4 mmHg (35-45); ABG PH Result 7.43 (7.35-7.45); Alveolar-Arterial Oxygen Gradi 9.2 mmHg (5-10); Arterial Blood Gas Hematocrit 34.6 % (42-52); Blood Gas Sample Site Brachial, right; Blood Gas Sample Type Arterial; Carboxyhemoglobin 5.2 %THgb (0.4-20.1); HCO3 ABG 33.7 mmol/L (22-26); HGB O2 Sat 90.5 % (95-100); Ionized Calcium Level - ABG 1.2 mmol/L (1.1-1.4); Methemoglobin < 0.0 % (0.4-1.5); Oxygen Device BIPAP; Oxygen Saturation ABG 95.1; PO2 ABG 65.6 mmHg (80.0-100.0); PO2 FiO2 Ratio Arterial Blood 0; Total Hemoglobin 11.3 g/dL (14-18)
[2023-07-21 05:09] LABS: Creatinine Clr Calc Pharmacy 68.4544
[2023-07-21] MEDS: famotidine 20 mg/2 mL INJ IVP ×2 (06:29→17:37)
[2023-07-21] MEDS: FUROsemide 10 mg/mL SDV 4mL 40 MG IVP ×2 (06:30→17:37)
[2023-07-21] MEDS: methylPREDNISolone sod succ 125 mg/2 mL INJ 80 MG IVP ×2 (06:30→19:51)
--- NOTE | 2023-07-21 07:51 | XR_ITS ---
WS: [id number] XR chest 1V portable [id number] REASON FOR EXAM: chf FINDINGS: Cardiomegaly and central pulmonary venous congestion. Opacity in the right lower hemithorax is increased somewhat compared to the prior day. This may relat ed to inspiratory effort or indicate an increase in the right pleural effusion and compressive atelec tasis of the right lower lobe. No other significant interval change or new finding is noted. XR/XR chest 1V portable [id number] IMPRESSION: Interval change in the right lower hemithorax as above, otherwise stable abnorm al chest.
--- NOTE | 2023-07-21 08:12 | PC.NURSE ---
Provider stopped nurse in hallway, provider ordered Kayexalate, insulin and dextrose 10%. Provider wants kayexalate now and see if patient has results before giving insulin and dextrose.
--- NOTE | 2023-07-21 08:47 | PC.CHAP ---
Pastoral Care Encounter/Spiritual Assessment Type of Contact [] Declined engineering manager electronics visit [] Patient/Family/Request visit [] Outpatient visit [] Follow-up visit [] Physician referral [] Code/Alert [] Routine visit [] Staff referral [] Actively dying [] Patient sleeping [] Family support [] [] Out of room [] Palliative care [] [x] Receiving care in room [] Pre-surgical visit [] Trauma [] Long length of stay [] ICU visit [] Other: Relational/Emotional Strength [] Patient feels connected with others/family/visitors/staff [] Distress [] Loneliness/isolation [] Abandonment Spirituality of Patient [] Person of [place] [] Attends Jewish of their [place] [] Believes in Prayer [] Reads Bible or Temple materials [] There are Spiritual issues to be addressed Tumor Registrar Interventions [] Prayer [] Active listening [] Non-anxious presence [] Spiritual/emotional support [] Crisis/trauma care [] Spiritual counseling [] Bereavement support [] Provided bereavement packet [] Provided Bible/devotional materials [] Provided toy/stuffed animal, coloring book to patient or family member [] Provided Communion [] Anointing/[place] [] Salvation [] Completed spiritual assessment [] Other: Impact on Illness or Injury [] Angry [] Fearful [] Anxious [] Often cries [] Exhaustion [] Unable to work [] Unable to attend uatsdin [] Unable to walk/stand [] Unable to read [] Unable to drive [] Unable to eat/drink [] Unable to sleep [] Unable to be with family [] Patient intubated [] Other: Summary Time spent with patient
[2023-07-21] MEDS: carvedilol 25 mg Tablet PO ×2 (09:05→17:36)
[2023-07-21] MEDS: hyDRALAzine 10 mg Tablet PO ×3 (09:05→19:59)
[2023-07-21] MEDS: sodium polystyrene sulfonate 15 gm/60 mL Btl PO ×2 (09:05→15:10)
--- NOTE | 2023-07-21 11:32 | USR_ITS ---
PROCEDURE INFORMATION: Exam: US Duplex Right Lower Extremity Veins, Limited Exam date and time: 07/21/2023 11:59 AM Age: 62 years old Clinical indication: Edema, localized; Lower extremity, right; Additional info: Rle swelling asymmetrical and patient with hypoxia TECHNIQUE: Imaging protocol: Real-time duplex ultrasound of the right extremity with 2-D coffman scale, color Doppler flow and spectral waveform analysis including responses to compression and other maneuvers (when performed) with image documentation. Limited exam was focused on the right lower extremity veins. COMPARISON: US renal BI* [id number] 02/16/2022 1:08 PM FINDINGS: Right deep veins: Unremarkable. The common femoral, femoral, proximal profunda femoral and popliteal veins are patent without thrombus. Normal Doppler waveforms. Normal compressibility and/or augmentation response. Superficial veins: Greater saphenous vein at the saphenofemoral junction is patent without thrombus. Soft tissues: Unremarkable. US/[place] [id number] IMPRESSION: No evidence of deep vein thrombosis.
[2023-07-21 12:15] LABS: Bacillus cereus group Not Detected (NOT DETECT); Bacillus subtillis group Not Detected (NOT DETECT); Corynebacterium Not Detected (NOT DETECT); Cutibacterium acnes (P.acnes) Not Detected (NOT DETECT); Enterococcus Not Detected (NOT DETECT); Enterococcus faecalis Not Detected (NOT DETECT); Enterococcus faecium Not Detected (NOT DETECT); Lactobacillus species Not Detected (NOT DETECT); Listeria Not Detected (NOT DETECT); Listeria monocytogenes Not Detected (NOT DETECT); Micrococcus Not Detected (NOT DETECT); Pan Candida Not Detected (NOT DETECT); Pan Gram-Negative Not Detected (NOT DETECT); Staphylococcus epidermidis Detected (NOT DETECT); Staphylococcus lugdunensis Not Detected (NOT DETECT); Staphylococcus species Detected (NOT DETECT); Streptococcus agalactiae Not Detected (NOT DETECT); Streptococcus anginosus group Not Detected (NOT DETECT); Streptococcus pneumoniae Not Detected (NOT DETECT); Streptococcus pyogenes Not Detected (NOT DETECT); Streptococcus species Not Detected (NOT DETECT); mecA Detected (NOT DETECT); mecC Not Detected (NOT DETECT)
--- NOTE | 2023-07-21 14:08 | P.PN_ITS ---
Subjective 2 Subjective: No acute overnight events noted. He has been feeling better and is off BiPAP since 5 AM this morning. ABG showed improved pCO2 levels at 50 with 90% saturation on BiPAP. He is currently on nasal cannula saturating 94%. He is alert and awake and able to speak in full sentences. He wanted to eat this morning and mentioned his last meal was yesterday. At breakfast Medications: Reviewed: Yes Vitals/I&O/Wt Last Vital Signs Temp 98.2 F 07/21/23 11:49 Pulse 83 07/21/23 11:49 Resp 16 07/21/23 11:49 BP 169/82 07/21/23 11:49 Pulse Ox 94 07/21/23 11:49 O2 Del Method Nasal Cannula 07/21/23 11:49 O2 Flow Rate 3 07/21/23 07:43 FiO2 28 07/21/23 04:42 07/20/23 07/21/23 07/21/23 22:59 06:59 14:59 Intake Total 300 / 300 120 / 420 582 / 582 Output Total 1200 / 1200 900 / 2100 1075 / 1075 Balance -900 / -900 -780 / -1680 -493 / -493 Weight last 48 hrs Weight 151.103 kg Weight 152.152 kg Weight 136.078 kg Physical Exam 2 Narrative: He is alert awake and oriented x 3 Chest clear to auscultation bilaterally Cardiovascular normal heart sounds no murmurs Abdomen soft distended nontender normal bowel sounds Extremities 3+ bilateral lower extremity pitting edema present Data 07/21/23 03:37 07/21/23 03:37 Micro: Microbiology 07/20/23 18:09 Blood Culture - Preliminary Blood Staphylococcus epidermidis 07/20/23 18:09 Blood Culture - Preliminary Blood SPECIMEN COLLECTED A&P Assessment and plan (1) Acute on chronic respiratory failure with hypoxia and hypercapnia: (2) COPD exacerbation: (3) Cigarette smoker: (4) CKD (chronic kidney disease): (5) Altered mental state: (6) CHF (congestive heart failure): Qualifiers: Heart failure type: diastolic Heart failure chronicity: chronic Qualified Code(s): I50.32 - Chronic diastolic (congestive) heart failure (7) Staphylococcus epidermidis bacteremia: Plan 62 year old male with past medical history of COPD on supplemental oxygen 3 LNC at home, CHF, CKD, BPH, GERD, CO2 narcosis, morbidly obese, hypertension, dyslipidemia, obstructive sleep apnea, aortic stenosis, s/p aortic aneurysm repair, active smoker 3 PPD was brought in by EMS for altered mental status and found to have oxygen saturation in 80s ,pCO2 of 80, BNP 1197 and chest x-ray consistent with fluid overload likely secondary to acute CHF exacerbation/acute on chronic hypoxic and hypercarbic respiratory failure/pneumonia. 1. Altered mental status likely secondary to acute hypoxic and hypercarbic respiratory failure secondary to acute congestive heart failure/pneumonia. Admit to CSU with continuous telemetry monitoring Off BiPAP, saturating well on nasal cannula will continue IV ceftriaxone 1 g daily and IV azithromycin 500 mg daily respiratory panel was negative DuoNebs every 6 hours IV Solu-Medrol 80 mg twice daily IV Lasix 40 mg twice daily Will check 2D echo Normal left ventricular size, systolic function and wall thickness, with no regional wall motion abnormalities. Grade II/IV diastolic dysfunction, moderately elevated filling pressures. Left ventricular ejection fraction is estimated at 60 %. Normal right ventricular size and systolic function. Mild pulmonary hypertension, RVSP 49.6 mmHg. Mildly increased right atrial size. Mildly increased left atrial size. Structurally normal mitral valve. Trace mitral valve regurgitation. Structurally normal trileaflet aortic valve. Mild to moderate aortic valve regurgitation. Mild aortic valve stenosis, mean gradient 18.6 mmHg, MARISEL 0.97 cm squared. Dilated IVC with decreased respiratory variation. RA pressure 15mmHg. Previous study was June 24, 2021. 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 Aortic valve stenosis is approximately the same to very slightly worse. Strict I's and O's Daily BMP Daily weight 2. CKD-creatinine 1.7, will monitor for now 3. Hypertension-resume home medication , Coreg and hydralazine, hold HCTZ 4. Hyperlipidemia-hold lovastatin 5. BPH-hold Flomax and finesteride. He has bilateral lower extremity 3+ pitting edema right more than left, will check US venous Doppler to rule out DVT. Blood cultures 1 out of 4 bottles growing Staph epidermidis, continue IV ceftriaxone for now. Will follow-up culture and sensitivities and adjust antibiotics accordingly. N.p.o. for now, will resume diet once alert and awake and off BiPAP. DVT prophylaxis with subcutaneous heparin GI prophylaxis with IV Pepcid twice daily He is full code for now Attestations 2 Medical Necessity Statement*: He needs continued hospitalization crossing 2 midnights for management of acute hypoxic and hypercarbic respiratory failure and bacteremia with IV antibiotics . Time Spent in Patient Care: 25 minutes Coding Level of Care Code Acute Code for Chg Fwd Diagnoses Acute on chronic respiratory failure with hypoxia and hypercapnia J96.21; J96.22 COPD exacerbation J44.1 Cigarette smoker F17.210 CKD (chronic kidney disease) N18.9 Altered mental state R41.82 Chronic diastolic congestive heart failure I50.32 Heart failure type: diastolic Heart failure chronicity: chronic Staphylococcus epidermidis bacteremia R78.81; B95.7 Time Spent (min) 25
--- NOTE | 2023-07-21 14:20 | PC.NURSE ---
Provider notified that patient has only had one bowel movement since the kayexalate. Provider ordered another kayexalate 15gram PO and blood draw for potassium at 1800.
[2023-07-21] MEDS: cefTRIAXone 1,000 MG in sodium chloride 0.9% (plus) 50 ML 100 MG IV (17:37)
[2023-07-21 18:25] LABS: Potassium 4.5 mmol/L (3.5-5.1)
[2023-07-21] MEDS: azithromycin 500 MG in sodium chloride 0.9% 250 ML 250 MG IV (19:52)
[2023-07-22] VITALS (20 sets, daily range): BP systolic 144–183; BP diastolic 87–95; PULSE 69–85; RESP 15–24; TEMP 36.6–36.8; O2SAT 90–96
[2023-07-22] MEDS: ipratropium-albuterol 3 mL Neb INHALATION ×4 (01:40→21:00)
[2023-07-22] MEDS: heparin 5,000 unit/mL INJ 1 mL 5000 UNIT SUBCUT ×3 (02:49→17:30)
[2023-07-22 04:45] LABS: Hematocrit 36.1 % (37-53); Lymphocytes % 14.6 %; Mean Corpuscular HGB Conc 28.5 g/dL (30-55); Mean Corpuscular Volume 87.6 fl (82-101); Mean Platelet Volume 9.9 fL (7.4-10.4); Monocytes # 0.2 10^3/uL (0.2-0.9); Monocytes % 2.6 %; Neutrophils # 5.36 10^3/uL (1.8-7.7); Neutrophils % 82.3 %; Nucleated Red Blood Cells % 0 %; Platelet Count 216 10^3/cmm (157-399); Red Blood Count 4.12 10^6/uL (3.85-5.65); Red Cell Distribution Width 16.6 % (12.1-15.1); White Blood Count 6.51 10^3/uL (3.29-11.43)
[2023-07-22 05:04] LABS: Anion Gap 11.3 (5-19); Blood Urea Nitrogen 30 mg/dL (8-23); Calcium 8.9 mg/dL (8.5-10.5); Carbon Dioxide 35 mmol/L (22-29); Chloride 99 mmol/L (98-107); Glucose 149 mg/dL (65-115); Osmolality Calculated 301 mOsm/kg (285-295); Potassium 4.3 mmol/L (3.5-5.1); Sodium 141 mmol/L (136-145)
[2023-07-22] MEDS: famotidine 20 mg/2 mL INJ IVP ×2 (05:30→17:30)
[2023-07-22] MEDS: FUROsemide 10 mg/mL SDV 4mL 40 MG IVP (05:31)
[2023-07-22] MEDS: methylPREDNISolone sod succ 125 mg/2 mL INJ 80 MG IVP (07:37)
[2023-07-22] MEDS: oxyCODONE-APAP 10-325 mg Tablet 1 TAB PO ×3 (07:37→22:14)
[2023-07-22] MEDS: carvedilol 25 mg Tablet PO ×2 (08:12→17:31)
[2023-07-22] MEDS: hyDRALAzine 10 mg Tablet PO ×3 (08:12→20:11)
--- NOTE | 2023-07-22 10:54 | P.PN_ITS ---
Subjective 2 Subjective: No acute overnight events noted Medications: Reviewed: Yes Vitals/I&O/Wt Last Vital Signs Temp 98.0 F 07/22/23 07:33 Pulse 78 07/22/23 08:19 Resp 16 07/22/23 08:19 BP 178/95 07/22/23 07:33 Pulse Ox 94 07/22/23 08:19 O2 Del Method Nasal Cannula 07/22/23 08:19 O2 Flow Rate 3 07/22/23 08:19 FiO2 28 07/22/23 04:00 07/21/23 07/22/23 07/22/23 22:59 06:59 14:59 Intake Total 1362 / 1944 240 / 240 Output Total 1400 / 2975 1925 / 4900 500 / 500 Balance -38 / -1031 -1925 / -2956 -260 / -260 Weight last 48 hrs Weight 145.717 kg Weight 151.103 kg Weight 152.152 kg Weight 136.078 kg Physical Exam 2 Narrative: He is alert awake and oriented x 3 Chest clear to auscultation bilaterally Cardiovascular normal heart sounds no murmurs Abdomen soft distended nontender normal bowel sounds Extremities 3+ bilateral lower extremity pitting edema present, right more than left lower extremity Data 07/22/23 03:53 07/22/23 03:53 Micro: Microbiology 07/20/23 18:09 Blood Culture - Preliminary Blood NEGATIVE TO DATE 07/20/23 18:09 Blood Culture - Preliminary Blood Staphylococcus epidermidis A&P Assessment and plan (1) Acute on chronic respiratory failure with hypoxia and hypercapnia: (2) COPD exacerbation: (3) Cigarette smoker: (4) CKD (chronic kidney disease): (5) Altered mental state: (6) CHF (congestive heart failure): Qualifiers: Heart failure type: diastolic Heart failure chronicity: chronic Qualified Code(s): I50.32 - Chronic diastolic (congestive) heart failure (7) Staphylococcus epidermidis bacteremia: Plan 62 year old male with past medical history of COPD on supplemental oxygen 3 LNC at home, CHF, CKD, BPH, GERD, CO2 narcosis, morbidly obese, hypertension, dyslipidemia, obstructive sleep apnea, aortic stenosis, s/p aortic aneurysm repair, active smoker 3 PPD was brought in by EMS for altered mental status and found to have oxygen saturation in 80s ,pCO2 of 80, BNP 1197 and chest x-ray consistent with fluid overload likely secondary to acute CHF exacerbation/acute on chronic hypoxic and hypercarbic respiratory failure/pneumonia. 1. Altered mental status which resolved was likely secondary to acute hypoxic and hypercarbic respiratory failure secondary to acute congestive heart failure/pneumonia, which is resolving Admit to CSU with continuous telemetry monitoring Off BiPAP, saturating well on nasal cannula will continue IV ceftriaxone 1 g daily and IV azithromycin 500 mg daily respiratory panel was negative DuoNebs every 6 hours IV Solu-Medrol 80 mg to daily IV Lasix 40 mg to daily Will check 2D echo Normal left ventricular size, systolic function and wall thickness, with no regional wall motion abnormalities. Grade II/IV diastolic dysfunction, moderately elevated filling pressures. Left ventricular ejection fraction is estimated at 60 %. Normal right ventricular size and systolic function. Mild pulmonary hypertension, RVSP 49.6 mmHg. Mildly increased right atrial size. Mildly increased left atrial size. Structurally normal mitral valve. Trace mitral valve regurgitation. Structurally normal trileaflet aortic valve. Mild to moderate aortic valve regurgitation. Mild aortic valve stenosis, mean gradient 18.6 mmHg, MARISEL 0.97 cm squared. Dilated IVC with decreased respiratory variation. RA pressure 15mmHg. Previous study was June 24, 2021. 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 Aortic valve stenosis is approximately the same to very slightly worse. Strict I's and O's Daily BMP Daily weight 2. CKD-creatinine 1.7, will monitor for now 3. Hypertension-resume home medication , Coreg and hydralazine, hold HCTZ 4. Hyperlipidemia-hold lovastatin 5. BPH-hold Flomax and finesteride. He has bilateral lower extremity 3+ pitting edema right more than left, waiting for US venous duplex right lower extremity. Blood cultures 1 out of 4 bottles growing Staph epidermidis, continue IV ceftriaxone for now. Will follow-up culture and sensitivities and adjust antibiotics accordingly. N.p.o. for now, will resume diet once alert and awake and off BiPAP. DVT prophylaxis with subcutaneous heparin GI prophylaxis with IV Pepcid twice daily He is full code for now PT eval and treat Attestations 2 Medical Necessity Statement*: He needs continued hospitalization crossing 2 midnights for management of acute hypoxic and hypercarbic respiratory failure and staph epidermis bacteremia with IV antibiotics . Time Spent in Patient Care: 15 minutes Coding Level of Care Code Acute Code for Chg Fwd Diagnoses Acute on chronic respiratory failure with hypoxia and hypercapnia J96.21; J96.22 COPD exacerbation J44.1 Cigarette smoker F17.210 CKD (chronic kidney disease) N18.9 Altered mental state R41.82 Chronic diastolic congestive heart failure I50.32 Heart failure type: diastolic Heart failure chronicity: chronic Staphylococcus epidermidis bacteremia R78.81; B95.7 Time Spent (min) 15
--- NOTE | 2023-07-22 15:38 | PC.NURSE ---
Patient off floor for MRI at 1525.
[2023-07-22] MEDS: cefTRIAXone 1,000 MG in sodium chloride 0.9% (plus) 50 ML 100 MG IV (17:31)
[2023-07-22] MEDS: azithromycin 500 MG in sodium chloride 0.9% 250 ML 250 MG IV (20:10)
[2023-07-23] VITALS (22 sets, daily range): BP systolic 154–200; BP diastolic 79–108; PULSE 68–92; RESP 12–20; TEMP 36.7–37; O2SAT 92–97
[2023-07-23] MEDS: ipratropium-albuterol 3 mL Neb INHALATION ×4 (02:19→20:06)
[2023-07-23] MEDS: heparin 5,000 unit/mL INJ 1 mL 5000 UNIT SUBCUT ×3 (03:01→17:33)
[2023-07-23] MEDS: hyDRALAzine 10 mg Tablet PO ×5 (03:08→20:02)
[2023-07-23 04:46] LABS: Basophils % 0.2 %; Eosinophils % 0.1 %; Hematocrit 37.3 % (37-53); Lymphocytes # 1.9 10^3/uL (0.8-4.8); Lymphocytes % 23.3 %; Mean Corpuscular HGB Conc 29.2 g/dL (30-55); Mean Corpuscular Volume 85.6 fl (82-101); Mean Platelet Volume 9.4 fL (7.4-10.4); Monocytes # 1.1 10^3/uL (0.2-0.9); Monocytes % 13.5 %; Neutrophils # 5.13 10^3/uL (1.8-7.7); Neutrophils % 62.5 %; Nucleated Red Blood Cells % 0 %; Platelet Count 227 10^3/cmm (157-399); Red Blood Count 4.36 10^6/uL (3.85-5.65); Red Cell Distribution Width 16.6 % (12.1-15.1); White Blood Count 8.21 10^3/uL (3.29-11.43)
[2023-07-23 05:08] LABS: Blood Urea Nitrogen 32 mg/dL (8-23); Carbon Dioxide 34 mmol/L (22-29); Chloride 96 mmol/L (98-107); Creatinine Clr Calc Pharmacy 81.1315; Glomerular Filtration Rate 51.4 mL/min (90-130); Glucose 108 mg/dL (65-115); Osmolality Calculated 291 mOsm/kg (285-295); Sodium 137 mmol/L (136-145)
[2023-07-23] MEDS: famotidine 20 mg/2 mL INJ IVP ×2 (05:38→17:33)
[2023-07-23] MEDS: methylPREDNISolone sod succ 125 mg/2 mL INJ 80 MG IVP (08:42)
[2023-07-23] MEDS: FUROsemide 10 mg/mL SDV 4mL 40 MG IVP (08:46)
[2023-07-23] MEDS: carvedilol 25 mg Tablet PO ×2 (08:47→17:31)
[2023-07-23] MEDS: oxyCODONE-APAP 10-325 mg Tablet 1 TAB PO ×3 (08:47→22:19)
--- NOTE | 2023-07-23 10:42 | P.PN_ITS ---
Subjective 2 Subjective: No acute overnight events noted Medications: Reviewed: Yes Vitals/I&O/Wt Last Vital Signs Temp 98.2 F 07/23/23 07:54 Pulse 85 07/23/23 07:54 Resp 20 H 07/23/23 08:47 BP 200/108 07/23/23 07:54 Pulse Ox 95 07/23/23 08:47 O2 Del Method Nasal Cannula 07/23/23 07:54 O2 Flow Rate 3 07/23/23 07:36 FiO2 28 07/23/23 00:40 07/22/23 07/23/23 07/23/23 22:59 06:59 14:59 Intake Total 1030 / 1492 300 / 1792 180 / 180 Output Total 800 / 2100 975 / 3075 1800 / 1800 Balance 230 / -608 -675 / -1283 -1620 / -1620 Weight last 48 hrs Weight 143.08 kg Weight 145.717 kg Physical Exam 2 Narrative: He is alert awake and oriented x 3 Chest clear to auscultation bilaterally Cardiovascular normal heart sounds no murmurs Abdomen soft distended nontender normal bowel sounds Extremities 3+ bilateral lower extremity pitting edema present, right more than left lower extremity but improving Data 07/23/23 04:31 07/23/23 04:31 A&P Assessment and plan (1) Acute on chronic respiratory failure with hypoxia and hypercapnia: (2) COPD exacerbation: (3) Cigarette smoker: (4) CKD (chronic kidney disease): (5) Altered mental state: (6) CHF (congestive heart failure): Qualifiers: Heart failure type: diastolic Heart failure chronicity: chronic Qualified Code(s): I50.32 - Chronic diastolic (congestive) heart failure (7) Staphylococcus epidermidis bacteremia: Plan 62 year old male with past medical history of COPD on supplemental oxygen 3 LNC at home, CHF, CKD, BPH, GERD, CO2 narcosis, morbidly obese, hypertension, dyslipidemia, obstructive sleep apnea, aortic stenosis, s/p aortic aneurysm repair, active smoker 3 PPD was brought in by EMS for altered mental status and found to have oxygen saturation in 80s ,pCO2 of 80, BNP 1197 and chest x-ray consistent with fluid overload likely secondary to acute CHF exacerbation/acute on chronic hypoxic and hypercarbic respiratory failure/pneumonia. 1. Altered mental status which resolved was likely secondary to acute hypoxic and hypercarbic respiratory failure secondary to acute congestive heart failure/pneumonia, which is resolving Admit to CSU with continuous telemetry monitoring Off BiPAP, saturating well on nasal cannula will continue IV ceftriaxone 1 g daily and IV azithromycin 500 mg daily respiratory panel was negative DuoNebs every 6 hours IV Solu-Medrol 80 mg to daily IV Lasix 40 mg to daily Will check 2D echo Normal left ventricular size, systolic function and wall thickness, with no regional wall motion abnormalities. Grade II/IV diastolic dysfunction, moderately elevated filling pressures. Left ventricular ejection fraction is estimated at 60 %. Normal right ventricular size and systolic function. Mild pulmonary hypertension, RVSP 49.6 mmHg. Mildly increased right atrial size. Mildly increased left atrial size. Structurally normal mitral valve. Trace mitral valve regurgitation. Structurally normal trileaflet aortic valve. Mild to moderate aortic valve regurgitation. Mild aortic valve stenosis, mean gradient 18.6 mmHg, MARISEL 0.97 cm squared. Dilated IVC with decreased respiratory variation. RA pressure 15mmHg. Previous study was June 24, 2021. 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 Aortic valve stenosis is approximately the same to very slightly worse. Strict I's and O's Daily BMP Daily weight 2. Staph epidermidis bacteremia - blood cultures 1 out of 4 bottles growing Staph epidermidis, continue IV ceftriaxone for now. Will follow-up culture and sensitivities and adjust antibiotics accordingly. 3. CKD-creatinine 1.7, will monitor for now 4. Hypertension-resume home medication , Coreg and hydralazine, hold HCTZ 5. Hyperlipidemia-hold lovastatin 6. BPH-hold Flomax and finesteride. Venous duplex right lower extremity did not show any DVT Complaining of vomiting this morning likely secondary to GERD, will add IV Zofran 4 mg every 8 hours and bowel preparation. Cardiac diet DVT prophylaxis with subcutaneous heparin GI prophylaxis with IV Pepcid twice daily He is full code for now PT eval and treat Attestations 2 Medical Necessity Statement*: He is here for management of acute hypoxic and hypercarbic respiratory failure and staph epidermis bacteremia with IV antibiotics . Time Spent in Patient Care: 15 minutes Coding Level of Care Code Acute Code for Chg Fwd Diagnoses Acute on chronic respiratory failure with hypoxia and hypercapnia J96.21; J96.22 COPD exacerbation J44.1 Cigarette smoker F17.210 CKD (chronic kidney disease) N18.9 Altered mental state R41.82 Chronic diastolic congestive heart failure I50.32 Heart failure type: diastolic Heart failure chronicity: chronic Staphylococcus epidermidis bacteremia R78.81; B95.7 Time Spent (min) 15
[2023-07-23] MEDS: polyethylene glycol 3350 Pkt 17 gm PO (10:53)
--- NOTE | 2023-07-23 14:01 | PC.NURSE ---
prn hydralazine po given at 1400 for bp 186/102.
[2023-07-23] MEDS: cefTRIAXone 1,000 MG in sodium chloride 0.9% (plus) 100 ML 200 MG IV (17:32)
[2023-07-23] MEDS: docusate sodium 100 mg Capsule PO (20:02)
[2023-07-23] MEDS: azithromycin 500 MG in sodium chloride 0.9% 250 ML 250 MG IV (20:02)
[2023-07-24] VITALS (9 sets, daily range): BP systolic 183–190; BP diastolic 97–106; PULSE 71–100; RESP 16–20; TEMP 36.6–36.7; O2SAT 92–98
[2023-07-24] MEDS: heparin 5,000 unit/mL INJ 1 mL 5000 UNIT SUBCUT ×2 (02:44→11:05)
[2023-07-24] MEDS: ipratropium-albuterol 3 mL Neb INHALATION ×2 (03:20→07:45)
[2023-07-24 04:32] LABS: Basophils % 0.1 %; Hematocrit 39.4 % (37-53); Lymphocytes # 1.8 10^3/uL (0.8-4.8); Lymphocytes % 21.7 %; Mean Corpuscular HGB Conc 29.2 g/dL (30-55); Mean Corpuscular Hemoglobin 24.9 pg (27-33); Mean Corpuscular Volume 85.3 fl (82-101); Mean Platelet Volume 9.9 fL (7.4-10.4); Monocytes # 1.1 10^3/uL (0.2-0.9); Monocytes % 12.8 %; Neutrophils # 5.41 10^3/uL (1.8-7.7); Neutrophils % 65.3 %; Nucleated Red Blood Cells % 0 %; Platelet Count 237 10^3/cmm (157-399); Red Blood Count 4.62 10^6/uL (3.85-5.65); Red Cell Distribution Width 16.3 % (12.1-15.1); White Blood Count 8.29 10^3/uL (3.29-11.43)
[2023-07-24 04:58] LABS: Anion Gap 12.3 (5-19); Blood Urea Nitrogen 33 mg/dL (8-23); Carbon Dioxide 34 mmol/L (22-29); Chloride 95 mmol/L (98-107); Creatinine Clr Calc Pharmacy 86.4933; Glomerular Filtration Rate 55.9 mL/min (90-130); Glucose 103 mg/dL (65-115); Osmolality Calculated 292 mOsm/kg (285-295); Potassium 4.3 mmol/L (3.5-5.1); Sodium 137 mmol/L (136-145)
[2023-07-24] MEDS: famotidine 20 mg/2 mL INJ IVP (05:38)
[2023-07-24] MEDS: carvedilol 25 mg Tablet PO (08:35)
[2023-07-24] MEDS: hyDRALAzine 10 mg Tablet PO (08:35)
[2023-07-24] MEDS: methylPREDNISolone sod succ 125 mg/2 mL INJ 80 MG IVP (08:35)
[2023-07-24] MEDS: FUROsemide 10 mg/mL SDV 4mL 40 MG IVP (08:35)
[2023-07-24] MEDS: oxyCODONE-APAP 10-325 mg Tablet 1 TAB PO (09:08)
--- NOTE | 2023-07-24 10:44 | PC.SOCIAL ---
IMM Update Pg. 2 of IMM updated and reviewed with patient, who verbalized understanding. Copy provided.
--- NOTE | 2023-07-24 11:31 | P.DS_ITS ---
Discharge Providers Date of Admission: 07/20/23 17:49 Date of Discharge: July 24, 2023 Attending Provider at Admission: Kellee Chapa MD Attending Provider at Discharge: Kellee Chapa MD Primary Care Provider: Barbara Longo DO Diagnoses at Discharge Discharge Diagnosis (1) Acute on chronic respiratory failure with hypoxia and hypercapnia: Status: Acute (2) COPD exacerbation: Status: Acute (3) Cigarette smoker: Status: Acute (4) CKD (chronic kidney disease): Status: Acute (5) Altered mental state: Status: Acute (6) CHF (congestive heart failure): Status: Acute Qualifiers: Heart failure type: diastolic Heart failure chronicity: chronic Qualified Code(s): I50.32 - Chronic diastolic (congestive) heart failure (7) Staphylococcus epidermidis bacteremia: Status: Acute Reason for Visit Reason for Visit: weakness Brief History: Perry Norman is a 62 year old male with past medical history of COPD on supplemental oxygen at 3 L nasal cannula at home, CHF, CKD, BPH, GERD, CO2 narcosis, morbidly obese, hypertension, dyslipidemia, obstructive sleep apnea, aortic stenosis, s/p aortic aneurysm repair, active smoker 3 PPD was brought in by EMS for altered mental status. He was found to be drowsy and difficult to arouse by a family member. On arrival to ER his oxygen saturation on 3 L were in the 80s and he was arousable only to aggressive verbal stimuli. His pCO2 was 80 and he was started on BiPAP. Unable to obtain history due to altered mental status. Family friend who is present at bedside reports he has been noncompliant with diet/fluid restrictions, medication intake recently and smokes 3 packs of cigarettes per day. There is no history of fever, cold, cough, chest pain, shortness of breath, urinary or bowel complaints. There is no history of sick contacts or recent travel. He was recently hospitalized in 05/06 for total left hip replacement secondary to degenerative joint disease. On arrival to ER he was found to have ABG 7 point 2/79/85/33/86% on room air. Normal WBC count, creatinine of 1.6, BNP 1197, procalcitonin 0.12, ethyl alcohol less than 10. Chest x-ray showed small volume right pleural effusion with right basilar opacity either atelectasis or pneumonia. 2D echo 5/22 Normal LV size ejection fraction of 65%. Abnormal septal motion consistent with conduction abnormality. Moderate left ventricular hypertrophy. Type II diastolic dysfunction. Moderate aortic valve stenosis. Peak velocity of 2.64 m/s with a peak gradient of 28 and a mean gradient of 13 mmHg. Aortic valve area was calculated to be 1.3 cm squared. Mild aortic valve regurgitation. Mild mitral annular calcification. Mildly dilated right atrium and right ventricle with normal RV ejection fraction There is no pericardial effusion. Hospital Course Hospital Course He was admitted for acute hypoxic and hypercarbic respiratory failure likely secondary to CHF exacerbation/pneumonia. He was started on BiPAP and his pCO2 significantly improved from 80-50, saturating well on nasal cannula at 94%, he became more alert awake and oriented. He was started on IV Lasix 40 mg twice daily and IV Solu-Medrol 80 mg twice daily eventually switched to once daily. His shortness of breath has resolved, educated him about the compliance with diet fluids and medications. He also has CKD with creatinine improving from 1.6-1.3. He had a blood cultures done, which showed 1/4 bottles with staph epididermis, methicillin-resistant. He was already on IV ceftriaxone and IV azithromycin for possible pneumonia continue the same for positive blood cul tures. 2D echo done showed EF of 60%, normal right ventricular size and systolic function. Mild pulmonary hypertension. Dilated IVC with RA pressure 15 mmHg. He had a bilateral lower extremity swelling right more than left on admission hence ultrasound duplex done right lower extremity showed no DVT. He is clinically improving, hemodynamically stable, afebrile and is ready to be discharged home with 2 weeks of oral antibiotics for staph bacteremia. Patient to follow-up with PCP as outpatient in 1 week. Physical Exam Narrative: He is alert awake and oriented x 3 Chest clear to auscultation bilaterally Cardiovascular normal heart sounds no murmurs Abdomen soft distended nontender normal bowel sounds Extremities 3+ bilateral lower extremity pitting edema present, right more than left lower extremity but improving Discharge Data Studies Completed and Pending Completed Studies During Hospitalization Category Date Time Status XR chest 1V portable [id number] Stat Exams 07/20/23 16:01 Completed XR chest 1V portable [id number] Stat Exams 07/21/23 07:51 Completed CV. echo complete* [id number] Stat Ultrasound 07/20/23 18:34 Completed US venous duplex lower extremity RT [CV venous duplex Ultrasound 07/21/23 11:[place] [id number]] Stat Pending at discharge Category Date Time Status Blood Culture Stat Lab 07/20/23 18:09 Results Radiology Impressions Chest X-Ray 07/21/23 07:51 IMPRESSION: Interval change in the right lower hemithorax as above, otherwise stable abnormal chest. Venous Duplex 07/21/23 11:32 IMPRESSION: No evidence of deep vein thrombosis. Laboratory Results WBC 8.29 10^3/uL (3.29-11.43) 07/24/23 03:16 RBC 4.62 10^6/uL (3.85-5.65) 07/24/23 03:16 Hgb 11.50 g/dL (11.27-16.99) 07/24/23 03:16 Hct 39.4 % (37-53) 07/24/23 03:16 MCV 85.3 fl (82-101) 07/24/23 03:16 MCH 24.9 pg (27-33) L 07/24/23 03:16 MCHC 29.2 g/dL (30-55) L 07/24/23 03:16 RDW 16.3 % (12.1-15.1) H 07/24/23 03:16 Plt Count 237 10^3/cmm (157-399) 07/24/23 03:16 MPV 9.9 fL (7.4-10.4) 07/24/23 03:16 Neut % (Auto) 65.3 % 07/24/23 03:16 Lymph % (Auto) 21.7 % 07/24/23 03:16 Rogers % (Auto) 12.8 % 07/24/23 03:16 Eos % (Auto) 0.0 % 07/24/23 03:16 Baso % (Auto) 0.1 % 07/24/23 03:16 Neut # (Auto) 5.41 10^3/uL (1.8-7.7) 07/24/23 03:16 Lymph # (Auto) 1.8 10^3/uL (0.8-4.8) 07/24/23 03:16 Rogers # (Auto) 1.1 10^3/uL (0.2-0.9) H 07/24/23 03:16 Eos # (Auto) 0.0 10^3/uL (0.0-0.8) 07/24/23 03:16 Baso # (Auto) 0.0 10^3/uL (0.0-0.1) 07/24/23 03:16 Nucleated RBC % (auto) 0 % 07/24/23 03:16 Nucleated RBCs # 0.0 /100WBC 07/24/23 03:16 PT 13.10 SECONDS (12.1-14.9) 07/20/23 16:24 INR 0.96 (0.8-1.2) 07/20/23 16:24 Specimen Type Arterial 07/21/23 04:45 Sample Site Brachial, right 07/21/23 04:45 ABG pH 7.43 (7.35-7.45) 07/21/23 04:45 ABG pCO2 51.4 mmHg (35-45) H 07/21/23 04:45 ABG pO2 65.6 mmHg (80.0-100.0) L 07/21/23 04:45 ABG PO2/FiO2 Ratio 0 07/21/23 04:45 ABG HCO3 33.7 mmol/L (22-26) H 07/21/23 04:45 ABG O2 Saturation 95.1 07/21/23 04:45 ABG Base Excess 8.0 mmol/L (-2.0-2.0) H 07/21/23 04:45 Augustine Test N/a 07/21/23 04:45 A-a O2 Gradient 9.2 mmHg (5-10) 07/21/23 04:45 Hematocrit 34.6 % (42-52) L 07/21/23 04:45 Hgb O2 Saturation 90.5 % (95-100) L 07/21/23 04:45 Carboxyhemoglobin 5.2 %THgb (0.4-20.1) 07/21/23 04:45 Methemoglobin < 0.0 % (0.4-1.5) L 07/21/23 04:45 Total Hemoglobin 11.3 g/dL (14-18) L 07/21/23 04:45 Sodium 141.0 mmol/L (131-143) 07/21/23 04:45 Potassium 5.0 mmol/L (3.5-5.0) 07/21/23 04:45 Glucose 129.0 mg/dL (70-115) H 07/21/23 04:45 Ionized Calcium 1.2 mmol/L (1.1-1.4) 07/21/23 04:45 O2 Delivery Device Bipap 07/21/23 04:45 O2 Liters/Min 3.0 % 07/20/23 16:20 FiO2 28.0 % 07/21/23 04:45 PEEP 8.0 cmH20 07/21/23 04:45 Pattern Keeper ID [email or web address] 07/21/23 04:45 Sodium 137 mmol/L (136-145) 07/24/23 03:16 Potassium 4.3 mmol/L (3.5-5.1) 07/24/23 03:16 Chloride 95 mmol/L (98-107) L 07/24/23 03:16 Carbon Dioxide 34 mmol/L (22-29) H 07/24/23 03:16 Anion Gap 12.3 (5-19) 07/24/23 03:16 BUN 33 mg/dL (8-23) H 07/24/23 03:16 Creatinine 1.3 mg/dL (0.7-1.2) H 07/24/23 03:16 GFR Calculation 55.9 mL/min (90-130) L 07/24/23 03:16 Glucose 103 mg/dL (65-115) 07/24/23 03:16 Calculated Osmolality 292 mOsm/kg (285-295) 07/24/23 03:16 Lactic Acid 0.9 mmol/L (0.5-2.2) 07/20/23 16:11 Calcium 9.0 mg/dL (8.5-10.5) 07/24/23 03:16 Magnesium 2.0 mg/dL (1.7-2.3) 07/23/23 04:31 Total Bilirubin 0.3 mg/dL (0.15-1.2) 07/20/23 16:24 AST 10 U/L (0-40) 07/20/23 16:24 ALT 11 U/L (0-41) 07/20/23 16:24 Alkaline Phosphatase 183 U/L (40-130) H 07/20/23 16:24 Ammonia 56 umol/L (16-60) 07/20/23 16:24 Troponin T Baseline 26 ng/L (0-15) H 07/20/23 16:24 Troponin T 120 Minute 24.65 ng/L (0-15) H 07/20/23 18:03 Delta Troponin T -1.35 ABS# (0-10) L 07/20/23 18:03 Troponin T Hi Sens 6Hr 27.00 ng/L (0-15) H 07/20/23 22:17 Troponin T Hi Sens 6Hr Delta 1.00 ng/L (0-12) 07/20/23 22:17 NT-Pro-B Natriuret Pep 829 pg/mL (0-125) H 07/21/23 03:37 Total Protein 7.0 g/dL (6.6-8.7) 07/20/23 16:24 Albumin 3.6 g/dL (3.5-5.2) 07/20/23 16:24 Globulin 3.4 g/dL (1.3-4.6) 07/20/23 16:24 Procalcitonin 0.12 ng/mL (0-0.5) 07/20/23 16:24 Urine Color Yellow (Yellow) 07/20/23 22:30 Urine Appearance Clear (CLEAR) 07/20/23 22:30 Urine pH 5 (5-7) 07/20/23 22:30 Ur Specific [place] 1.010 (1.005-1.030) 07/20/23 22:30 Urine Protein 1+ (Negative) H 07/20/23 22:30 Urine Glucose (UA) Norm (Normal) 07/20/23 22:30 Urine Ketones Negative (Negative) 07/20/23 22:30 Urine Blood Neg (Negative) 07/20/23 22:30 Urine Nitrate Negative (Negative) 07/20/23 22:30 Urine Bilirubin Neg (Negative) 07/20/23 22:30 Urine Urobilinogen Neg mg/dL (Negative) 07/20/23 22:30 Ur Leukocyte Esterase Negative (Negative) 07/20/23 22:30 Urine RBC None /hpf (0-2) 07/20/23 22:30 Urine WBC None /hpf (0-5) 07/20/23 22:30 Ur Squamous Epith Cells 0-4 /hpf (0-5) H 07/20/23 22:30 Amorphous Sediment Not Reportable 07/20/23 22:30 Urine Bacteria None /hpf (NONE) 07/20/23 22:30 Urine Mucus 1+ /hpf 07/20/23 22:30 Ethyl Alcohol < 10 mg/dL (0-10) 07/20/23 16:24 Adenovirus (PCR) Not detected (NOT DETECT) 07/20/23 18:00 C. pneumoniae DNA (PCR) Not detected (NOT DETECT) 07/20/23 18:00 Coronavirus 229E (PCR) Not detected (NOT DETECT) 07/20/23 18:00 Human Metapneumovir PCR Not detected (NOT DETECT) 07/20/23 18:00 Influenza A (H1) PCR Not detected (NOT DETECT) 07/20/23 18:00 Influ A (H1/09) PCR Not detected (NOT DETECT) 07/20/23 18:00 Influenza A (H3) PCR Not detected (NOT DETECT) 07/20/23 18:00 Influenza Type A (PCR) Not detected (NOT DETECT) 07/20/23 18:00 Influenza Type B (PCR) Not detected (NOT DETECT) 07/20/23 18:00 M. pneumoniae (PCR) Not detected (NOT DETECT) 07/20/23 18:00 Parainfluenza 1 (PCR) Not detected (NOT DETECT) 07/20/23 18:00 Parainfluenza 2 (PCR) Not detected (NOT DETECT) 07/20/23 18:00 Parainfluenza 3 (PCR) Not detected (NOT DETECT) 07/20/23 18:00 Parainfluenza 4 (PCR) Not detected (NOT DETECT) 07/20/23 18:00 RSV Type A (PCR) Not detected (NOT DETECT) 07/20/23 18:00 RSV Type B (PCR) Not detected (NOT DETECT) 07/20/23 18:00 Entero/Rhino (PCR) Not detected (NOT DETECT) 07/20/23 18:00 SARS-CoV-2 (PCR) Not detected (NOT DETECT) 07/20/23 18:00 Vitals Last Vital Signs Temp 98 F 07/24/23 07:43 Pulse 99 07/24/23 07:48 Resp 20 H 07/24/23 09:08 BP 183/106 07/24/23 07:43 Pulse Ox 92 07/24/23 09:08 O2 Del Method Nasal Cannula 07/24/23 07:46 O2 Flow Rate 3 07/24/23 07:46 FiO2 28 07/23/23 00:40 Discharge Plan Discharge Patient Disposition: Home Condition: Stable Prescriptions: New Medrol (Keith) 4 mg tablets,dose pack See Rx Instructions .ROUTE .COMPLEX Qty: 21 0RF Rx Instructions: orally per package directions Bactrim DS 800-160 mg tablet 1 tab PO BID 14 Days Qty: 28 0RF Lasix 20 mg tablet 20 mg PO DAILY 7 Days Qty: 7 0RF Continued lovastatin 40 mg tablet 40 mg PO DAILY bisacodyl [Dulcolax (bisacodyl)] 5 mg tablet,delayed release (DR/EC) 5 mg PO DAILY PRN (Reason: Constipation) buspirone 10 mg tablet 10 mg PO TID tadalafil 20 mg tablet 20 mg PO DAILY PRN (Reason: Erectile Dysfunction) Rx Instructions: administer approximately 30min before sexual activity; do not use more than 1 dose per 24hrs fluticasone propionate 50 mcg/actuation spray,suspension 1 spray intranasal BID PRN (Reason: Allergy Symptoms) Rx Instructions: administer into each nostril finasteride 5 mg tablet 5 mg PO QDAY Qty: 90 3RF hydralazine 10 mg tablet 10 mg PO .COMPLEX Qty: 120 6RF Rx Instructions: Take 1 tablet by mouth twice daily and additional 1 tab if BP> 160/90. baclofen 20 mg tablet 20 mg PO TID PRN (Reason: Muscle Pain) gabapentin 600 mg tablet 300 mg PO QID hydrochlorothiazide 12.5 mg tablet 12.5 mg PO DAILY mirtazapine 15 mg tablet 15 mg PO BEDTIME tamsulosin 0.4 mg capsule See Rx Instructions .ROUTE .COMPLEX Qty: 180 3RF Dose Instruction: Take 1 capsule by mouth twice daily Rx Instructions: Take 1 capsule by mouth twice daily ergocalciferol (vitamin D2) 1,250 mcg (50,000 unit) Capsule 1,250 mcg PO Q7D Rx Instructions: (on sundays) fluoxetine 20 mg Capsule 60 mg PO DAILY testosterone cypionate 200 mg/mL oil 200 mg IM .EVERY 21 DAYS naloxone [Narcan] 4 mg/actuation spray,non-aerosol 4 mg intranasal Q2M PRN (Reason: opioid overdose) Qty: 2 0RF Rx Instructions: spray 1 dose into ONE nostril; alternate nostrils w each dose until help arrives esomeprazole magnesium 40 mg capsule,delayed release(DR/EC) 40 mg PO BID carvedilol 25 mg tablet 25 mg PO BID oxycodone-acetaminophen [Percocet] 10-325 mg tablet 1 tab PO Q4H PRN (Reason: Pain) 7 Days Qty: 42 0RF No Action (DME) [employer] Person Brace See Rx Instructions .Route .MEDSUPPLY Qty: 1 0RF Rx Instructions: As directed (DME) LEFT [employer]NEE [employer] BRACE See Rx Instructions .Route .MEDSUPPLY Qty: 1 0RF Rx Instructions: As directed Discharge Orders: Discharge Order (Routine); Ordered 07/24/23 Ordered By: Kellee Chapa Referrals: Barbara Longo DO [Primary Care Provider] - 07/27/23 10:00 am Discharge Diet: Cardiac Discharge Activity: Increase activity as tolerated Patient Instructions: Heart Failure (DC), CHF Stoplight, Opioid Safety Discharge Attestations Time Spent in Discharge Care*: less than 30 min Quality Metrics Clinical Quality Measures [ No reported AMI, CVA or VTE this stay] Coding Level of Care Code Acute Code for Chg Fwd Diagnoses Acute on chronic respiratory failure with hypoxia and hypercapnia J96.21; J96.22 COPD exacerbation J44.1 Cigarette smoker F17.210 CKD (chronic kidney disease) N18.9 Altered mental state R41.82 Chronic diastolic congestive heart failure I50.32 Heart failure type: diastolic Heart failure chronicity: chronic Staphylococcus epidermidis bacteremia R78.81; B95.7 Time Spent (min) 20
== END 2023-07-24 13:33 | disposition home or self-care (01) | DRG 291 ==
LOC: ER 16:14 → CSU 17:50
PROVIDERS: Internal Medicine; Admitting Provider Internal Medicine; Emergency Provider Family Medicine; PCP Family Medicine; Visit Provider Internal Medicine
DX: I13.0 Hypertensive heart and chronic kidney disease with heart failure and stage 1 through stage 4 chronic kidney disease, or unspecified chronic kidney disease (principal); I50.33 Acute on chronic diastolic (congestive) heart failure; J96.22 Acute and chronic respiratory failure with hypercapnia; J96.21 Acute and chronic respiratory failure with hypoxia; J18.9 Pneumonia, unspecified organism; J44.0 Chronic obstructive pulmonary disease with (acute) lower respiratory infection; J44.1 Chronic obstructive pulmonary disease with (acute) exacerbation; Z68.41 Body mass index [BMI] 40.0-44.9, adult; R78.81 Bacteremia; N18.9 Chronic kidney disease, unspecified; F17.210 Nicotine dependence, cigarettes, uncomplicated; Z99.81 Dependence on supplemental oxygen; N40.0 Benign prostatic hyperplasia without lower urinary tract symptoms; F10.20 Alcohol dependence, uncomplicated; E66.01 Morbid (severe) obesity due to excess calories; F41.8 Other specified anxiety disorders; G47.33 Obstructive sleep apnea (adult) (pediatric); Z95.5 Presence of coronary angioplasty implant and graft; E78.5 Hyperlipidemia, unspecified; Z91.119 Patient's noncompliance with dietary regimen due to unspecified reason; Z91.148 Patient's other noncompliance with medication regimen for other reason; B95.7 Other staphylococcus as the cause of diseases classified elsewhere
CPT/HCPCS: 36415; 36600; 71045; 80048; 80051; 80053; 80307; 81001; 81015; 82140; 82330; 82805; 83605; 83735; 83880; 84132; 84145; 84484; 85025; 85610; 87040; 87077; 87150; 87186; 87205; 87486; 87581; 87633; 93005; 93306; 93971; 94640; 94660; 94664; 96365; 96366; 96367; 96372; 96376; 97116; 97161; 99291; J0456; J0696; J1644; J1940; J2919; J3490; J7050

== ENCOUNTER → 2023-08-30 10:50 | Outpatient (BNVA) | payer MEDICARE, OTHER, SELFPAY | PROVIDERS: PCP Family Medicine; Visit Provider Internal Medicine Cardiovascular Disease | DX: I13.0 Hypertensive heart and chronic kidney disease with heart failure and stage 1 through stage 4 chronic kidney disease, or unspecified chronic kidney disease (principal); N18.9 Chronic kidney disease, unspecified; I50.9 Heart failure, unspecified; I73.9 Peripheral vascular disease, unspecified; I35.0 Nonrheumatic aortic (valve) stenosis; Z95.5 Presence of coronary angioplasty implant and graft; Z98.890 Other specified postprocedural states; Z86.79 Personal history of other diseases of the circulatory system; I87.2 Venous insufficiency (chronic) (peripheral); F10.10 Alcohol abuse, uncomplicated; E66.9 Obesity, unspecified; R74.01 Elevation of levels of liver transaminase levels; J44.9 Chronic obstructive pulmonary disease, unspecified; Z68.41 Body mass index [BMI] 40.0-44.9, adult | CPT/HCPCS: 99214 ==

== ENCOUNTER 2023-10-01 09:23 | Inpatient (IN) | payer MEDICARE, OTHER, SELFPAY ==
[2023-10-01] VITALS (28 sets, daily range): BP systolic 123–217; BP diastolic 80–123; PULSE 71–91; RESP 12–29; TEMP 36.6–37.4; O2SAT 90–94; BMI 43.4
--- NOTE | 2023-10-01 09:29 | XRR_ITS ---
PROCEDURE INFORMATION: Exam: XR Chest Exam date and time: 10/01/2023 9:35 AM Age: 62 years old Clinical indication: Shortness of breath; Prior surgery; Surgery date: 6+ months; Surgery type: C. Spine; Additional info: SOB TECHNIQUE: Imaging protocol: Radiologic exam of the chest. Views: 1 view. COMPARISON: CR XR chest 1V portable [id number] 07/21/2023 8:44 AM FINDINGS: Lungs: Pulmonary vascular congestion/minimal pulmonary edema primarily in lower lobes. Pleural spaces: Small pleural effusions. No pneumothorax. Heart/Mediastinum: Stable cardiomegaly. Bones/joints: Cervical and upper thoracic hardware fusion noted. XR/XR chest 1V portable [id number] IMPRESSION: Pulmonary vascular congestion/minimal edema and small pleural effusions. Correlate for congestive heart failure.
--- NOTE | 2023-10-01 09:47 | W.ED.SOB ---
HPI - SOB/Dyspnea General: Chief Complaint: Shortness of Breath/Dyspnea Stated Complaint: SOB/Low oxygen level Time Seen by Provider: 10/01/23 09:27 Source: patient Mode of arrival: ambulatory Limitations: no limitations History of Present Illness: HPI Narrative: 62-year-old male has a history of COPD states he wears 2 L of oxygen at baseline he states that since last night he has been having increased cough congestion and increased shortness of breath he has had to increase his oxygen at home did have to put him on 5 L of oxygen here. He denies any fever denies any pain Associated symptoms: Deny abdominal pain, chest pain, fever(s), nausea or vomiting Related Data Home Medications Medication Instructions Recorded Confirmed bisacodyl 5 mg tablet,delayed 5 mg PO DAILY PRN Constipation 03/05/19 08/30/23 release (Dulcolax (bisacodyl)) lovastatin 40 mg tablet 40 mg PO DAILY 03/05/19 08/30/23 ergocalciferol (vitamin D2) 1,250 1,250 mcg PO Q7D 05/25/20 08/30/23 mcg (50,000 unit) capsule fluoxetine 20 mg capsule 60 mg PO DAILY 05/25/20 08/30/23 buspirone 10 mg tablet 10 mg PO TID 06/12/20 08/30/23 tadalafil 20 mg tablet 20 mg PO DAILY PRN Erectile 06/12/20 08/30/23 Dysfunction fluticasone propionate 50 1 spray intranasal BID PRN Allergy 10/28/20 08/30/23 mcg/actuation nasal Symptoms spray,suspension testosterone cypionate 200 mg/mL 200 mg IM .EVERY 21 DAYS 06/23/21 08/30/23 intramuscular oil baclofen 20 mg tablet 20 mg PO TID PRN Muscle Pain 01/31/22 08/30/23 gabapentin 600 mg tablet 300 mg PO QID 01/31/22 08/30/23 esomeprazole magnesium 40 mg 40 mg PO BID 02/17/22 08/30/23 capsule,delayed release hydrochlorothiazide 12.5 mg tablet 12.5 mg PO DAILY edema 01/30/23 08/30/23 mirtazapine 15 mg tablet 15 mg PO BEDTIME 03/17/23 08/30/23 carvedilol 25 mg tablet 25 mg PO BID 05/02/23 08/30/23 Previous Rx's Medication Instructions Recorded naloxone 4 mg/actuation nasal 4 mg intranasal Q2M PRN opioid 06/27/21 spray (Narcan) overdose #2 ea finasteride 5 mg tablet 5 mg PO QDAY #90 tabs 07/29/21 hydralazine 10 mg tablet 10 mg PO .COMPLEX #120 tabs 08/05/21 tamsulosin 0.4 mg capsule See Rx Instructions .Route 02/24/22 .COMPLEX #180 caps Photographic Laboratory Technician Brace #1 ea 08/08/22 oxycodone-acetaminophen 10 mg-325 1 tab PO Q4H PRN Pain 7 days #42 05/02/23 mg tablet (Percocet) tabs LEFT KNEE MEDIAL STEWARD DISHWASHER BRACE #1 ea 05/16/23 Allergies Allergy/AdvReac Type Severity Reaction Status Date / Time adhesive tape Allergy Mild ALGY-Rash Verified 10/01/23 09:38 ciprofloxacin Allergy Unknown Unknown Verified 10/01/23 09:38 Forced Air Heat Allergy Mild Difficulty Uncoded 10/01/23 09:38 breathing; dries up sinuses. Review of Systems Const: Denies: fever(s), chills, body aches or change in appetite ENMT: Denies: throat pain or dental pain Card: Denies: chest pain Resp: Reports: dyspnea, productive cough and wheezing GI: Denies: abdominal pain, nausea, vomiting or diarrhea Musc: Denies: neck pain or back pain Skin/Breast: Denies: rash Neuro: Denies: headache(s) PFSH ED PFSH: Medical History Cigarette smoker Ganglion cyst of volar aspect of right wrist Cubital tunnel syndrome, bilateral CO2 narcosis Pressure ulcers of skin of multiple topographic sites Venous (peripheral) insufficiency Diverticulosis Colon polyps Esophageal candidiasis BPH loc w urin obs/LUTS Alcoholism Obesity Chronic pain Depression with anxiety DJD (degenerative joint disease) Aortic stenosis GERD (gastroesophageal reflux disease) CRI (chronic renal insufficiency) CHF (congestive heart failure) COPD (chronic obstructive pulmonary disease) HTN (hypertension) Sleep apnea LVH (left ventricular hypertrophy) DDD (degenerative disc disease) CKD (chronic kidney disease) Surgical History Previous back surgery x 4 History of right knee joint replacement History of nasal surgery Hx of tonsillectomy History of aortic aneurysm repair History of coronary angioplasty with insertion of stent Family History Mother , in early 70's Heart attack Father No problems noted. Other CAD (coronary artery disease) Social History Smoking and tobacco/nicotine status: current every day tobacco/nicotine user cigarettes Packs smoked per day: 3 Alcohol intake: current Alcohol intake frequency: few times a month Alcohol type: beer Substance/Drug Use: never Household members: significant other Marital status: Marital status details: No longer with his in last 5 years, who takes care of his financials Current occupational status: disabled Physical Exam Const: COMMON NORMALS: no acute distress, patient oriented x3 and healthy appearing HENMT: COMMON NORMALS: normocephalic and atraumatic HEAD & SCALP: normocephalic and atraumatic Neck/C-Spine: COMMON NORMALS: full ROM and supple Chest: COMMONS NORMALS: normal inspection of the chest Resp: COMMON NORMALS: No retractions EFFORT & INSPECTION: Yes respiratory distress AUSCULTATION: wheezes Cardio: COMMON NORMALS: regular rate, regular rhythm and No murmurs present (Cardio) RATE: regular rate RHYTHM: regular rhythm Extremity: COMMON NORMALS: normal to inspection and full ROM Neuro: COMMON NORMALS: patient oriented x3, moves all extremities and no focal motor deficits Psych: COMMON NORMALS: mental status grossly normal, Normal thought process present and cooperative THOUGHT PROCESS: Normal thought process present Skin: COMMON NORMALS: no rashes or lesions noted and no wounds GENERAL SKIN EXAM: no rashes or lesions noted Course Vital Signs: Vital signs: Vital Signs Temperature 97.9 F 10/01/23 09:34 Pulse Rate 80 10/01/23 11:00 Respiratory Rate 16 10/01/23 10:50 Blood Pressure 173/103 10/01/23 10:37 Pulse Oximetry 92 10/01/23 11:00 Oxygen Delivery Me thod Nasal Cannula 10/01/23 11:00 Oxygen Flow Rate 3 10/01/23 11:00 MDM - SOB/Dyspnea Medical Decision Making Patient presents here with COPD exacerbation patient is requiring increased oxygen here has had a productive cough as well did get blood cultures start antibiotics he is improving after breathing treatments but still requiring more oxygen than his baseline will admit at this time. Medical Records I reviewed the patient's medical records. Lab Data I reviewed the patient's lab results. 10/01/23 09:54 10/01/23 09:54 Labs/Radiology: Radiology Impressions Chest X-Ray 10/01/23 09:29 IMPRESSION: Pulmonary vascular congestion/minimal edema and small pleural effusions. Correlate for congestive heart failure. Laboratory Results WBC 7.63 10^3/uL (3.29-11.43) 10/01/23 09:54 RBC 4.19 10^6/uL (3.85-5.65) 10/01/23 09:54 Hgb 10.10 g/dL (11.27-16.99) L 10/01/23 09:54 Hct 37.1 % (37-53) 10/01/23 09:54 MCV 88.5 fl (82-101) 10/01/23 09:54 MCH 24.1 pg (27-33) L 10/01/23 09:54 MCHC 27.2 g/dL (30-55) L 10/01/23 09:54 RDW 20.2 % (12.1-15.1) H 10/01/23 09:54 Plt Count 182 10^3/cmm (157-399) 10/01/23 09:54 MPV 9.5 fL (7.4-10.4) 10/01/23 09:54 Neut % (Auto) 67.5 % 10/01/23 09:54 Lymph % (Auto) 16.6 % 10/01/23 09:54 Petroleum % (Auto) 9.4 % 10/01/23 09:54 Eos % (Auto) 5.4 % 10/01/23 09:54 Baso % (Auto) 0.7 % 10/01/23 09:54 Neut # (Auto) 5.15 10^3/uL (1.8-7.7) 10/01/23 09:54 Lymph # (Auto) 1.3 10^3/uL (0.8-4.8) 10/01/23 09:54 Petroleum # (Auto) 0.7 10^3/uL (0.2-0.9) 10/01/23 09:54 Eos # (Auto) 0.4 10^3/uL (0.0-0.8) 10/01/23 09:54 Baso # (Auto) 0.1 10^3/uL (0.0-0.1) 10/01/23 09:54 Nucleated RBC % (auto) 0.8 % 10/01/23 09:54 Nucleated RBCs # 0.1 /100WBC 10/01/23 09:54 Specimen Type Arterial 10/01/23 09:42 Sample Site Radial, left 10/01/23 09:42 ABG pH 7.36 (7.35-7.45) 10/01/23 09:42 ABG pCO2 58.4 mmHg (35-45) H 10/01/23 09:42 ABG pO2 81.3 mmHg (80.0-100.0) 10/01/23 09:42 ABG PO2/FiO2 Ratio 203 10/01/23 09:42 ABG HCO3 33.2 mmol/L (22-26) H 10/01/23 09:42 ABG O2 Saturation 95.8 10/01/23 09:42 ABG Base Excess 6.4 mmol/L (-2.0-2.0) H 10/01/23 09:42 Augustine Test Pos 10/01/23 09:42 A-a O2 Gradient 17.3 mmHg (5-10) H 10/01/23 09:42 Hematocrit 31.4 % (42-52) L 10/01/23 09:42 Hgb O2 Saturation 92.2 % (95-100) L 10/01/23 09:42 Carboxyhemoglobin 2.4 %THgb (0.4-20.1) 10/01/23 09:42 Methemoglobin 1.3 % (0.4-1.5) 10/01/23 09:42 Total Hemoglobin 10.2 g/dL (14-18) L 10/01/23 09:42 Sodium 144.0 mmol/L (131-143) H 10/01/23 09:42 Potassium 4.4 mmol/L (3.5-5.0) 10/01/23 09:42 Glucose 115.0 mg/dL (70-115) 10/01/23 09:42 Ionized Calcium 1.2 mmol/L (1.1-1.4) 10/01/23 09:42 O2 Delivery Device Nc 10/01/23 09:42 O2 Liters/Min 5.0 % 10/01/23 09:42 FiO2 40.0 % 10/01/23 09:42 Workers' Compensation Claims Supervisor ID Cak 10/01/23 09:42 Sodium 141 mmol/L (136-145) 10/01/23 09:54 Potassium 4.5 mmol/L (3.5-5.1) 10/01/23 09:54 Chloride 103 mmol/L (98-107) 10/01/23 09:54 Carbon Dioxide 29 mmol/L (22-29) 10/01/23 09:54 Anion Gap 13.5 (5-19) 10/01/23 09:54 BUN 21 mg/dL (8-23) 10/01/23 09:54 Creatinine 1.5 mg/dL (0.7-1.2) H 10/01/23 09:54 GFR Calculation 47.4 mL/min (90-130) L 10/01/23 09:54 Glucose 116 mg/dL (65-115) H 10/01/23 09:54 Calculated Osmolality 296 mOsm/kg (285-295) H 10/01/23 09:54 Calcium 8.5 mg/dL (8.5-10.5) 10/01/23 09:54 Total Bilirubin 0.5 mg/dL (0.15-1.2) 10/01/23 09:54 AST 13 U/L (0-40) 10/01/23 09:54 ALT 9 U/L (0-41) 10/01/23 09:54 Alkaline Phosphatase 147 U/L (40-130) H 10/01/23 09:54 NT-Pro-B Natriuret Pep 830 pg/mL (0-125) H 10/01/23 09:54 Total Protein 6.4 g/dL (6.6-8.7) L 10/01/23 09:54 Albumin 3.7 g/dL (3.5-5.2) 10/01/23 09:54 Globulin 2.7 g/dL (1.3-4.6) 10/01/23 09:54 No radiology studies performed this visit EKG Data EKG 1: I personally reviewed and interpreted this EKG as follows: EKG Interpretation Date: 10/01/23 EKG interpretation time: 09:34 Interpretation: nsr hr [address] or t wave abnormalities qrs 140 qtc 435 Discharge Plan Discharge Patient Disposition: Admitted As Inpatient Clinical Impression: COPD (chronic obstructive pulmonary disease), Acute respiratory failure with hypoxia Condition: Stable Prescriptions: No Action lovastatin 40 mg tablet 40 mg PO DAILY bisacodyl [Dulcolax (bisacodyl)] 5 mg tablet,delayed release (DR/EC) 5 mg PO DAILY PRN (Reason: Constipation) buspirone 10 mg tablet 10 mg PO TID tadalafil 20 mg tablet 20 mg PO DAILY PRN (Reason: Erectile Dysfunction) Rx Instructions: administer approximately 30min before sexual activity; do not use more than 1 dose per 24hrs fluticasone propionate 50 mcg/actuation spray,suspension 1 spray intranasal BID PRN (Reason: Allergy Symptoms) Rx Instructions: administer into each nostril finasteride 5 mg tablet 5 mg PO QDAY Qty: 90 3RF hydralazine 10 mg tablet 10 mg PO .COMPLEX Qty: 120 6RF Rx Instructions: Take 1 tablet by mouth twice daily and additional 1 tab if BP> 160/90. baclofen 20 mg tablet 20 mg PO TID PRN (Reason: Muscle Pain) gabapentin 600 mg tablet 300 mg PO QID (DME) Photographic Laboratory Technician Brace See Rx Instructions .Route .MEDSUPPLY Qty: 1 0RF Rx Instructions: As directed hydrochlorothiazide 12.5 mg tablet 12.5 mg PO DAILY mirtazapine 15 mg tablet 15 mg PO BEDTIME (DME) LEFT KNEE MEDIAL STEWARD DISHWASHER BRACE See Rx Instructions .Route .MEDSUPPLY Qty: 1 0RF Rx Instructions: As directed tamsulosin 0.4 mg capsule See Rx Instructions .ROUTE .COMPLEX Qty: 180 3RF Dose Instruction: Take 1 capsule by mouth twice daily Rx Instructions: Take 1 capsule by mouth twice daily ergocalciferol (vitamin D2) 1,250 mcg (50,000 unit) Capsule 1,250 mcg PO Q7D Rx Instructions: (on sundays) fluoxetine 20 mg Capsule 60 mg PO DAILY testosterone cypionate 200 mg/mL oil 200 mg IM .EVERY 21 DAYS naloxone [Narcan] 4 mg/actuation spray,non-aerosol 4 mg intranasal Q2M PRN (Reason: opioid overdose) Qty: 2 0RF Rx Instructions: spray 1 dose into ONE nostril; alternate nostrils w each dose until help arrives esomeprazole magnesium 40 mg capsule,delayed release(DR/EC) 40 mg PO BID carvedilol 25 mg tablet 25 mg PO BID oxycodone-acetaminophen [Percocet] 10-325 mg tablet 1 tab PO Q4H PRN (Reason: Pain) 7 Days Qty: 42 0RF Referrals: Barbara Longo DO [Primary Care Provider] - Coding Level of Care Code ED Drive Worker for Rom Gupta
[2023-10-01 09:53] LABS: ABG PCO2 58.4 mmHg (35-45); ABG PH Result 7.36 (7.35-7.45); Alveolar-Arterial Oxygen Gradi 17.3 mmHg (5-10); Arterial Blood Gas Hematocrit 31.4 % (42-52); Base Excess ABG 6.4 mmol/L (-2.0-2.0); Blood Gas Allen Test Pos; Blood Gas Operator Identificat CAK; Blood Gas Sample Site Radial, left; Blood Gas Sample Type Arterial; Carboxyhemoglobin 2.4 %THgb (0.4-20.1); HCO3 ABG 33.2 mmol/L (22-26); HGB O2 Sat 92.2 % (95-100); Ionized Calcium Level - ABG 1.2 mmol/L (1.1-1.4); Methemoglobin 1.3 % (0.4-1.5); Oxygen Device NC; Oxygen Saturation ABG 95.8; PO2 ABG 81.3 mmHg (80.0-100.0); PO2 FiO2 Ratio Arterial Blood 203; Potassium Level - ABG 4.4 mmol/L (3.5-5.0); Total Hemoglobin 10.2 g/dL (14-18)
[2023-10-01] MEDS: methylPREDNISolone sod succ 125 mg/2 mL INJ IVP (10:00)
[2023-10-01 10:10] LABS: Basophils # 0.1 10^3/uL (0.0-0.1); Basophils % 0.7 %; Eosinophils # 0.4 10^3/uL (0.0-0.8); Eosinophils % 5.4 %; Hematocrit 37.1 % (37-53); Lymphocytes # 1.3 10^3/uL (0.8-4.8); Lymphocytes % 16.6 %; Mean Corpuscular HGB Conc 27.2 g/dL (30-55); Mean Corpuscular Hemoglobin 24.1 pg (27-33); Mean Corpuscular Volume 88.5 fl (82-101); Mean Platelet Volume 9.5 fL (7.4-10.4); Monocytes # 0.7 10^3/uL (0.2-0.9); Monocytes % 9.4 %; Neutrophils # 5.15 10^3/uL (1.8-7.7); Neutrophils % 67.5 %; Nucleated Red Blood Cells # 0.1 /100WBC; Nucleated Red Blood Cells % 0.8 %; Platelet Count 182 10^3/cmm (157-399); Red Blood Count 4.19 10^6/uL (3.85-5.65); Red Cell Distribution Width 20.2 % (12.1-15.1); White Blood Count 7.63 10^3/uL (3.29-11.43)
[2023-10-01] MEDS: cefTRIAXone 1,000 mg SDV 1000 MG IVP (10:35)
[2023-10-01] MEDS: azithromycin 500 MG in sodium chloride 0.9% 250 ML 250 MG IV (10:35)
[2023-10-01 10:39] LABS: Alanine Aminotransferase 9 U/L (0-41); Albumin Level 3.7 g/dL (3.5-5.2); Alkaline Phosphatase 147 U/L (40-130); Anion Gap 13.5 (5-19); Aspartate Amino Transferase 13 U/L (0-40); Blood Urea Nitrogen 21 mg/dL (8-23); Calcium 8.5 mg/dL (8.5-10.5); Carbon Dioxide 29 mmol/L (22-29); Chloride 103 mmol/L (98-107); Globulin 2.7 g/dL (1.3-4.6); Glomerular Filtration Rate 47.4 mL/min (90-130); Glucose 116 mg/dL (65-115); NT Pro B Type Natriuretic Pept 830 pg/mL (0-125); Osmolality Calculated 296 mOsm/kg (285-295); Potassium 4.5 mmol/L (3.5-5.1); Sodium 141 mmol/L (136-145); Total Bilirubin 0.5 mg/dL (0.15-1.2); Total Protein 6.4 g/dL (6.6-8.7)
[2023-10-01 10:52] LABS: Creatinine Clr Calc Pharmacy 75.5589
[2023-10-01] MEDS: ipratropium-albuterol 3 mL Neb INHALATION ×4 (10:53→23:05)
[2023-10-01] MEDS: hyDRALAzine 20 mg/mL INJ 1 mL 10 MG IVP (12:17)
[2023-10-01] MEDS: FUROsemide 10 mg/mL SDV 4mL 40 MG IVP (12:18)
--- NOTE | 2023-10-01 12:20 | ECG_ITS ---
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 Measurements Intervals [place] Rate: 76 P: 59 AK: 181 QRS: -5 QRSD: 141 T: 62 QT: 417 QTc: 472 Interpretive Statements SINUS RHYTHM WITH FREQUENT VENTRICULAR PREMATURE COMPLEXES POSSIBLE LEFT ATRIAL ENLARGEMENT [-0.1mV P-WAVE IN V1/V2] INTRAVENTRICULAR CONDUCTION DELAY [130+ ms QRS DURATION] Compared to ECG 07/20/2023 22:31:37 No significant changes Electronically Signed On 10-01-2023 20:07:34 CDT by Daniel Null M.D. [id number]
--- NOTE | 2023-10-01 12:33 | PM.HP ---
Providers/Chief Complaint Primary Care Provider: Barbara Longo DO Chief Complaint: SOB/Low oxygen level History of Present Illness Perry Norman is a 62 year old male with a past medical history of COPD, uses a home BiPAP active smoker, history of CHF, hypertension, who presents to [facility] for complaints of shortness of breath. Currently patient is on 3 L, complaining of shortness of breath, nasal flaring, tachypnea, no intercostal retractions, but does have suprasternal retractions, is complaining of shortness of breath, sitting straight up in the gurney, does need that he cannot lie flat, hypertensive soft pressure blood pressure 190/100, tachycardic heart rates at this time have gone into the 100s, patient tells me that the last few days he has been feeling increasingly short of breath, he has had a progressive shortness of breath over the last month, but now he is short of breath with rest, minimal exertion, he cannot lie flat has orthopnea, paroxysmal nocturnal dyspnea he is also had a productive cough over the last few days no fevers no chills he does admit that he continues to smoke, he also reports that he has been having intermittent substernal chest pain, associated shortness of breath, nonradiating, no nausea, vomiting, no diaphoresis, no sick contacts, recent travel Review of Systems Const: Reports: fatigue; Denies: fever(s) or chills Card: Reports: chest pain Resp: Reports: dyspnea GI: Denies: abdominal pain Neuro: Denies: headache(s) Medications/Allergies Home Medications Medication Instructions Recorded Confirmed Last Taken Type bisacodyl 5 mg tablet,delayed 5 mg PO DAILY PRN Constipation 03/05/19 08/30/23 09/16/20 History release (Dulcolax (bisacodyl)) lovastatin 40 mg tablet 40 mg PO DAILY 03/05/19 08/30/23 07/20/23 History ergocalciferol (vitamin D2) 1,250 1,250 mcg PO Q7D 05/25/20 08/30/23 04/30/23 History mcg (50,000 unit) capsule fluoxetine 20 mg capsule 60 mg PO DAILY 05/25/20 08/30/23 07/20/23 History buspirone 10 mg tablet 10 mg PO TID 06/12/20 08/30/23 07/20/23 History tadalafil 20 mg tablet 20 mg PO DAILY PRN Erectile 06/12/20 08/30/23 04/30/23 History Dysfunction fluticasone propionate 50 1 spray intranasal BID PRN Allergy 10/28/20 08/30/23 04/30/23 History mcg/actuation nasal Symptoms spray,suspension testosterone cypionate 200 mg/mL 200 mg IM .EVERY 21 DAYS 06/23/21 08/30/23 Unknown History intramuscular oil naloxone 4 mg/actuation nasal 4 mg intranasal Q2M PRN opioid 06/27/21 08/30/23 Unknown Rx spray (Narcan) overdose #2 ea finasteride 5 mg tablet 5 mg PO QDAY #90 tabs 07/29/21 08/30/23 07/20/23 Rx hydralazine 10 mg tablet 10 mg PO .COMPLEX #120 tabs 08/05/21 08/30/23 07/20/23 Rx baclofen 20 mg tablet 20 mg PO TID PRN Muscle Pain 01/31/22 08/30/23 04/30/23 History gabapentin 600 mg tablet 300 mg PO QID 01/31/22 08/30/23 07/20/23 History esomeprazole magnesium 40 mg 40 mg PO BID 02/17/22 08/30/23 07/20/23 History capsule,delayed release tamsulosin 0.4 mg capsule See Rx Instructions .Route 02/24/22 08/30/23 07/20/23 Rx .COMPLEX #180 caps Relay Mechanic Brace #1 ea 08/08/22 08/30/23 Unknown Rx hydrochlorothiazide 12.5 mg tablet 12.5 mg PO DAILY edema 01/30/23 08/30/23 07/20/23 History mirtazapine 15 mg tablet 15 mg PO BEDTIME 03/17/23 08/30/23 07/19/23 History carvedilol 25 mg tablet 25 mg PO BID 05/02/23 08/30/23 07/20/23 History oxycodone-acetaminophen 10 mg-325 1 tab PO Q4H PRN Pain 7 days #42 05/02/23 08/30/23 07/20/23 Rx mg tablet (Percocet) tabs LEFT KNEE MEDIAL PROJECT CONSTRUCTION ASSISTANT MANAGER BRACE #1 ea 05/16/23 08/30/23 Unknown Rx Allergies Allergy/AdvReac Type Severity Reaction Status Date / Time adhesive tape Allergy Mild ALGY-Rash Verified 10/01/23 09:38 ciprofloxacin Allergy Unknown Unknown Verified 10/01/23 09:38 Forced Air Heat Allergy Mild Difficulty Uncoded 10/01/23 09:38 breathing; dries up sinuses. PFSH Acute PFSH: Medical History Cigarette smoker Ganglion cyst of volar aspect of right wrist Cubital tunnel syndrome, bilateral CO2 narcosis Pressure ulcers of skin of multiple topographic sites Venous (peripheral) insufficiency Diverticulosis Colon polyps Esophageal candidiasis BPH loc w urin obs/LUTS Alcoholism Obesity Chronic pain Depression with anxiety DJD (degenerative joint disease) Aortic stenosis GERD (gastroesophageal reflux disease) CRI (chronic renal insufficiency) CHF (congestive heart failure) COPD (chronic obstructive pulmonary disease) HTN (hypertension) Sleep apnea LVH (left ventricular hypertrophy) DDD (degenerative disc disease) CKD (chronic kidney disease) Surgical History Previous back surgery x 4 History of right knee joint replacement History of nasal surgery Hx of tonsillectomy History of aortic aneurysm repair History of coronary angioplasty with insertion of stent Family History Mother , in early 70's Heart attack Father No problems noted. Other CAD (coronary artery disease) Social History Smoking and tobacco/nicotine status: current every day tobacco/nicotine user cigarettes Packs smoked per day: 3 Alcohol intake: current Alcohol intake frequency: few times a month Alcohol type: beer Substance/Drug Use: never Household members: significant other Marital status: Marital status details: No longer with his in last 5 years, who takes care of his financials Current occupational status: disabled Vitals/I&O/Wt Last Vital Signs Temp 97.9 F 10/01/23 09:34 Pulse 80 10/01/23 11:00 Resp 16 10/01/23 10:50 BP 173/103 10/01/23 10:37 Pulse Ox 92 10/01/23 11:00 O2 Del Method Nasal Cannula 10/01/23 11:00 O2 Flow Rate 3 10/01/23 11:00 Weight last 48 hrs Weight 145.15 kg Physical Exam Const: COMMON NORMALS: no acute distress and patient oriented x3 HENMT: COMMON NORMALS: normocephalic HEAD & SCALP: normocephalic Eye: COMMON NORMALS: Equal, round and reactive pupils present Lymph: LYMPHATIC: no lymphadenopathy noted Resp: COMMON NORMALS: normal respiratory effort, No retractions and No use of accessory muscles AUSCULTATION: crackles and wheezes Cardio: COMMON NORMALS: regular rate, regular rhythm, S1 normal heart sound present and S2 normal heart sound present RATE: regular rate RHYTHM: regular rhythm HEART SOUNDS: S1 normal heart sound present and S2 normal heart sound present GI: OTHER: Abdomen is soft, distended, no guarding, no rebound, no rigidity, does have anasarca Extremity: NARRATIVE EXTREMITY EXAM: 2+ pitting edema, up to the knees bilaterally, with generalized anasarca Neuro: COMMON NORMALS: patient oriented x3, CN's II-XII intact bilaterally and moves all extremities Psych: COMMON NORMALS: mental status grossly normal Data 10/01/23 09:54 10/01/23 09:54 Micro: Microbiology 10/01/23 10:03 Blood Culture - Preliminary Blood SPECIMEN COLLECTED 10/01/23 09:54 Blood Culture - Preliminary Blood SPECIMEN COLLECTED A&P Assessment and plan (1) Acute on chronic respiratory failure with hypoxia and hypercapnia: (2) Cigarette smoker: (3) CHF (congestive heart failure): Qualifiers: Heart failure type: diastolic Heart failure chronicity: chronic Qualified Code(s): I50.32 - Chronic diastolic (congestive) heart failure (4) COPD exacerbation: (5) Aortic stenosis: (6) HTN (hypertension): Qualifiers: Hypertension type: primary hypertension Qualified Code(s): I10 - Essential (primary) hypertension (7) History of coronary angioplasty with insertion of stent: (8) Obesity: (9) CHF exacerbation: (10) Chest pain: Plan Acute hypoxic hypercarbic respiratory failure -Multifactorial -From COPD exacerbation -From a CHF exacerbation, diastolic Plan -Admit to ICU -Monitor respiratory status closely -Start BiPAP therapy due to persistent shortness of breath -Status post Lasix, Solu-Medrol, Rocephin, azithromycin in the emergency room -Daily dose Lasix, monitor urine output, monitor creatinine monitor potassium -Place Mukherjee catheter -Will consider further dosing of Lasix based on clinical progress -Solu-Medrol 40 mg IV push every 8 hours -DuoNeb -Budesonide -Continue Rocephin -Continue Zithromycin -Sputum cultures -Blood cultures -Pro-Warren, CRP, lactic acid -Troponin series -Full code -Lovenox for DVT prophylaxis Chest pain -Aspirin, statin -Serial EKGs, serial troponins, telemetry monitoring Hypertensive urgency -Will resume home blood pressure medications -Will consider Cardene drip based on clinical progress Attestations Medical Necessity Statement*: Patient requires hospitalization, inpatient, greater than 2 midnights, for acute hypoxic hypercarbic respiratory failure secondary to COPD, CHF, with AUBREY, with chest pain Diagnoses Acute on chronic respiratory failure with hypoxia and hypercapnia J96.21; J96.22 Cigarette smoker F17.210 Chronic diastolic congestive heart failure I50.32 Heart failure type: diastolic Heart failure chronicity: chronic COPD exacerbation J44.1 Nonrheumatic aortic valve stenosis I35.0 Primary hypertension I10 Hypertension type: primary hypertension History of coronary angioplasty with insertion of stent Z95.5 Obesity E66.9 CHF exacerbation I50.9 Chest pain R07.9
[2023-10-01 12:43] LABS: C Reactive Protein 8.7 mg/L (0.0-4.9)
[2023-10-01 12:51] LABS: Procalcitonin 0.14 ng/mL (0-0.5)
[2023-10-01 13:23] LABS: Troponin(5th) Baseline 19 ng/L (0-15)
--- NOTE | 2023-10-01 14:20 | ECG_ITS ---
[facility] Test Date: 2023-10-01 Pat Name: Perry Norman Department: Room: ICU02 Gender: Male C Architect: : 1960 Requested By: Lobo Rizvi Order Number: [id number] Bishop MD: Daniel Null M.D. Measurements Intervals [place] Rate: 83 P: 79 FL: 196 QRS: 38 QRSD: 142 T: 37 QT: 396 QTc: 467 Interpretive Statements SINUS RHYTHM WITH FREQUENT VENTRICULAR PREMATURE COMPLEXES POSSIBLE LEFT ATRIAL ENLARGEMENT [-0.1mV P-WAVE IN V1/V2] INTRAVENTRICULAR CONDUCTION DELAY [130+ ms QRS DURATION] Compared to ECG 10/01/2023 12:35:37 No significant changes Electronically Signed On 10-01-2023 20:10:44 CDT by Daniel Null M.D. [id number]
[2023-10-01 14:25] LABS: Thyroid Stimulating Hormone 1.89 uIU/mL (0.27-4.20)
[2023-10-01 14:29] LABS: Estmated Average Glucose 114; Hemoglobin A1C 5.6 % (4.0-6.0)
[2023-10-01] MEDS: pantoprazole 40 mg SDV IVP (14:34)
[2023-10-01] MEDS: BuSPIRONE 10 mg Tablet PO ×2 (14:34→20:10)
[2023-10-01] MEDS: aspirin 81 mg EC Tablet PO (14:34)
[2023-10-01] MEDS: enoxaparin 40 mg/0.4 mL Syringe SUBCUT (14:34)
[2023-10-01 15:32] LABS: Troponin 5 2HR 17.54 ng/L (0-15)
[2023-10-01 15:34] LABS: Adenovirus Not Detected (NOT DETECT); Chlamydia Pneumoniae Not Detected (NOT DETECT); Coronavirus 229E,HKU1,NL63,OC4 Not Detected (NOT DETECT); Human Metapneumovirus Not Detected (NOT DETECT); Human Rhinovirus/Enterovirus Not Detected (NOT DETECT); Influenza A Not Detected (NOT DETECT); Influenza A H1 Not Detected (NOT DETECT); Influenza A H1-2009 Not Detected (NOT DETECT); Influenza A H3 Not Detected (NOT DETECT); Influenza B Not Detected (NOT DETECT); Mycoplasma Pneumoniae Not Detected (NOT DETECT); Parainfluenza Virus Type 1 Not Detected (NOT DETECT); Parainfluenza Virus Type 2 Not Detected (NOT DETECT); Parainfluenza Virus Type 3 Not Detected (NOT DETECT); Parainfluenza Virus Type 4 Not Detected (NOT DETECT); Respiratory Syncytial Virus A Not Detected (NOT DETECT); Respiratory Syncytial Virus B Not Detected (NOT DETECT)
[2023-10-01 15:39] LABS: Troponin 5 2HR Delta -1.46 ABS# (0-10)
[2023-10-01 16:26] LABS: SARS-COV-2 Detected (NOT DETECT)
[2023-10-01] MEDS: gabapentin 300 mg Capsule PO ×2 (16:33→20:10)
[2023-10-01] MEDS: carvedilol 25 mg Tablet PO (16:36)
[2023-10-01] MEDS: remdesivir 200 MG in sodium chloride 0.9% (100 ml) 60 ML 100 MG IV (17:03)
[2023-10-01] MEDS: tamsulosin 0.4 mg Capsule PO (17:12)
[2023-10-01] MEDS: hyDRALAzine 10 mg Tablet PO (17:12)
[2023-10-01 17:48] LABS: Charge for UA Resulting for Rev
[2023-10-01 17:55] LABS: Bilirubin Urine Negative (Negative); Blood Urine Negative (Negative); Glucose Urine UA Negative (Normal); Ketones Urine Negative (Negative); Leukocyte Esterase Urine Negative (Negative); Nitrate Urine Negative (Negative); Protein Urine 2+ (Negative); Specific Gravity, Urine 1.007 (1.005-1.030); Urine Appearance Clear (CLEAR); Urine Color Yellow (Yellow); Urobilinogen Urine 0.2 mg/dL (Negative); pH Urine 7.5 (5-7)
[2023-10-01 17:58] LABS: Bacteria Urine None Seen /hpf; Hyaline Casts Urine 0-4 /lpf; RBC Urine 0-2 /hpf (0-2); Squamous Epithelial Cell Urine 0-5 /hpf (0-5); WBC Urine 0-5 /hpf (0-5)
--- NOTE | 2023-10-01 18:20 | ECG_ITS ---
[facility] Test Date: 2023-10-01 Pat Name: Perry Norman Department: Room: ICU02 Gender: Male Night Patrol Inspector: : 1960 Requested By: Lobo Rizvi Order Number: [id number] Bishop MD: Daniel Null M.D. Measurements Intervals [place] Rate: 83 P: 69 SC: 201 QRS: 35 QRSD: 146 T: 39 QT: 437 QTc: 516 Interpretive Statements SINUS RHYTHM WITH OCCASIONAL VENTRICULAR PREMATURE COMPLEXES LEFT ATRIAL ENLARGEMENT [-0.15mV P-WAVE IN V1/V2] INTRAVENTRICULAR CONDUCTION DELAY [130+ ms QRS DURATION] Compared to ECG 10/01/2023 14:29:06 No significant changes Electronically Signed On 10-01-2023 20:10:09 CDT by Daniel Null M.D. [id number]
[2023-10-01] MEDS: budesonide 0.5 mg/2 mL Neb INHALATION (19:32)
[2023-10-01 19:45] LABS: Troponin 5 6HR 15.57 ng/L (0-15)
[2023-10-01 19:47] LABS: Troponin 5 6HR Delta -3.43 ng/L (0-12)
[2023-10-01] MEDS: mirtazapine 15 mg Tablet PO (20:10)
[2023-10-01] MEDS: atorvastatin 40 mg Tablet PO (20:11)
[2023-10-01] MEDS: morphine 4 mg/mL SDV 1 mL 1 MG IVP (21:21)
[2023-10-02] VITALS (32 sets, daily range): BP systolic 106–185; BP diastolic 67–98; PULSE 67–90; RESP 10–22; TEMP 35.5–37.1; O2SAT 77–95
[2023-10-02] MEDS: morphine 4 mg/mL SDV 1 mL 1 MG IVP (01:27)
[2023-10-02] MEDS: ipratropium-albuterol 3 mL Neb INHALATION ×6 (03:38→23:03)
[2023-10-02 04:25] LABS: Basophils % 0.2 %; Hematocrit 35.7 % (37-53); Lymphocytes # 1.4 10^3/uL (0.8-4.8); Lymphocytes % 14.8 %; Mean Corpuscular HGB Conc 27.7 g/dL (30-55); Mean Corpuscular Hemoglobin 24.4 pg (27-33); Mean Corpuscular Volume 87.9 fl (82-101); Mean Platelet Volume 9.3 fL (7.4-10.4); Monocytes # 0.6 10^3/uL (0.2-0.9); Monocytes % 6.9 %; Neutrophils % 77.7 %; Nucleated Red Blood Cells % 0.3 %; Platelet Count 188 10^3/cmm (157-399); Red Blood Count 4.06 10^6/uL (3.85-5.65); Red Cell Distribution Width 20.2 % (12.1-15.1); White Blood Count 9.27 10^3/uL (3.29-11.43)
[2023-10-02 04:52] LABS: Anion Gap 13.7 (5-19); Blood Urea Nitrogen 26 mg/dL (8-23); Calcium 8.8 mg/dL (8.5-10.5); Carbon Dioxide 33 mmol/L (22-29); Chloride 101 mmol/L (98-107); Creatinine Clr Calc Pharmacy 66.6696; Glucose 135 mg/dL (65-115); Osmolality Calculated 303 mOsm/kg (285-295); Potassium 4.7 mmol/L (3.5-5.1); Sodium 143 mmol/L (136-145)
[2023-10-02 04:59] LABS: NT Pro B Type Natriuretic Pept 1472 pg/mL (0-125)
[2023-10-02] MEDS: methylPREDNISolone sod succ 40 mg/mL INJ IVP ×3 (06:02→22:05)
[2023-10-02] MEDS: fluoxetine 20 mg Capsule 60 MG PO (08:33)
[2023-10-02] MEDS: aspirin 81 mg EC Tablet PO (08:33)
[2023-10-02] MEDS: gabapentin 300 mg Capsule PO ×4 (08:33→21:35)
[2023-10-02] MEDS: tamsulosin 0.4 mg Capsule PO ×2 (08:33→17:22)
[2023-10-02] MEDS: BuSPIRONE 10 mg Tablet PO ×3 (08:34→21:35)
[2023-10-02] MEDS: hyDRALAzine 10 mg Tablet PO ×2 (08:34→17:22)
[2023-10-02] MEDS: carvedilol 25 mg Tablet PO ×2 (08:34→17:22)
[2023-10-02] MEDS: atorvastatin 40 mg Tablet 20 MG PO (08:34)
[2023-10-02] MEDS: finasteride 5 mg Tablet PO (08:34)
[2023-10-02] MEDS: budesonide 0.5 mg/2 mL Neb INHALATION ×2 (09:03→19:44)
[2023-10-02] MEDS: azithromycin 500 MG in sodium chloride 0.9% 250 ML 250 MG IV (10:18)
[2023-10-02] MEDS: cefTRIAXone 1,000 mg SDV 1000 MG IVP (10:19)
[2023-10-02] MEDS: water for injection-sterile 10 ML 200 ML (10:19)
[2023-10-02] MEDS: acetaminophen 325 mg Tablet 650 MG PO (11:38)
[2023-10-02] MEDS: oxyCODONE-APAP 10-325 mg Tablet 1 TAB PO ×2 (12:16→19:15)
--- NOTE | 2023-10-02 14:14 | P.PN_ITS ---
Subjective 2 Subjective: Patient was seen this morning, he is sitting up to the side of the bed, he reports his breathing is improved, but does continue to complain of shortness of breath at times, was compliant with BiPAP during the night, continues to have a cough, no fevers, discussed his COVID-19 positivity, we will treat him with remdesivir due to his respiratory failure, his creatinine is gone up to 1.7 will hold diuresis for today but he shows me that his edema has significantly improved Vitals/I&O/Wt Last Vital Signs Temp 97.6 F 10/02/23 12:00 Pulse 80 10/02/23 13:59 Resp 16 10/02/23 13:59 BP 166/83 10/02/23 12:00 Pulse Ox 91 10/02/23 13:59 O2 Del Method Nasal Cannula 10/02/23 13:59 O2 Flow Rate 3 10/02/23 13:59 FiO2 35 10/01/23 23:08 10/01/23 10/02/23 10/02/23 22:59 06:59 14:59 Intake Total 910 / 1160 220 / 1380 610 / 610 Output Total 2950 / 2950 250 / 3200 400 / 400 Balance -2040 / -1790 -30 / -1820 210 / 210 Weight last 48 hrs Weight 67.585 kg Weight 145.15 kg Weight 145.15 kg Physical Exam 2 Const: COMMON NORMALS: no acute distress and patient oriented x3 Resp: COMMON NORMALS: normal respiratory effort, No retractions and No use of accessory muscles AUSCULTATION: wheezes Cardio: COMMON NORMALS: regular rate, regular rhythm, S1 normal heart sound present and S2 normal heart sound present RATE: regular rate RHYTHM: r egular rhythm HEART SOUNDS: S1 normal heart sound present and S2 normal heart sound present GI: COMMON NORMALS: Normal to inspection, nondistended, normoactive bowel sounds present and non-tender Extremity: COMMON NORMALS: no calf tenderness and no pedal edema Neuro: COMMON NORMALS: patient oriented x3 Psych: COMMON NORMALS: mental status grossly normal Data 10/02/23 04:05 10/02/23 04:05 Micro: Microbiology 10/01/23 10:03 Blood Culture - Preliminary Blood NEGATIVE TO DATE 10/01/23 09:54 Blood Culture - Preliminary Blood NEGATIVE TO DATE A&P Assessment and plan (1) Acute on chronic respiratory failure with hypoxia and hypercapnia: (2) Cigarette smoker: (3) CHF (congestive heart failure): Qualifiers: Heart failure type: diastolic Heart failure chronicity: chronic Qualified Code(s): I50.32 - Chronic diastolic (congestive) heart failure (4) COPD exacerbation: (5) Aortic stenosis: (6) HTN (hypertension): Qualifiers: Hypertension type: primary hypertension Qualified Code(s): I10 - Essential (primary) hypertension (7) History of coronary angioplasty with insertion of stent: (8) Obesity: (9) CHF exacerbation: (10) Chest pain: (11) Pneumonia due to COVID-19 virus: Plan Acute hypoxic hypercarbic respiratory failure -Multifactorial -From COPD exacerbation -From a CHF exacerbation, diastolic # COVID-19 pneumonia Plan -Admit to ICU -Monitor respiratory status closely BiPAP therapy due to persistent shortness of breath -Status post Lasix, Solu-Medrol, Rocephin, azithromycin in the emergency room monitor urine output, monitor creatinine monitor potassium -Hold Lasix for today as creatinine is 1.7, urine output 3 L -Solu-Medrol 40 mg IV push every 8 hours -DuoNeb -Budesonide -Continue Rocephin -Continue Zithromycin ? Continue remdesivir -Sputum cultures -Blood cultures -Full code -Lovenox for DVT prophylaxis Chest pain -Aspirin, statin -Serial EKGs, serial troponins, telemetry monitoring Hypertensive urgency -Will resume home blood pressure medications History of alcoholism ? Drinks 3 beers a day ? [facility] protocol Attestations 2 Medical Necessity Statement*: Patient requires hospitalization for acute respiratory failure secondary to COVID-19, COPD, CHF Diagnoses Acute on chronic respiratory failure with hypoxia and hypercapnia J96.21; J96.22 Cigarette smoker F17.210 Chronic diastolic congestive heart failure I50.32 Heart failure type: diastolic Heart failure chronicity: chronic COPD exacerbation J44.1 Nonrheumatic aortic valve stenosis I35.0 Primary hypertension I10 Hypertension type: primary hypertension History of coronary angioplasty with insertion of stent Z95.5 Obesity E66.9 CHF exacerbation I50.9 Chest pain R07.9 Pneumonia due to COVID-19 virus U07.1; J12.82
[2023-10-02] MEDS: enoxaparin 40 mg/0.4 mL Syringe SUBCUT (14:22)
[2023-10-02] MEDS: pantoprazole 40 mg SDV IVP (14:22)
[2023-10-02] MEDS: amlodipine 10 mg Tablet PO (14:25)
[2023-10-02] MEDS: remdesivir 100 MG in sodium chloride 0.9% (100 ml) 80 ML IV (17:23)
[2023-10-02] MEDS: mirtazapine 15 mg Tablet PO (21:35)
[2023-10-03] VITALS (32 sets, daily range): BP systolic 131–202; BP diastolic 63–123; PULSE 66–93; RESP 12–24; TEMP 36.6–36.8; O2SAT 89–97
[2023-10-03] MEDS: ipratropium-albuterol 3 mL Neb INHALATION ×5 (03:29→20:13)
[2023-10-03 04:05] LABS: Basophils % 0.1 %; Hematocrit 37.7 % (37-53); Lymphocytes # 1.2 10^3/uL (0.8-4.8); Lymphocytes % 11.1 %; Mean Corpuscular HGB Conc 27.6 g/dL (30-55); Mean Corpuscular Hemoglobin 23.9 pg (27-33); Mean Corpuscular Volume 86.7 fl (82-101); Mean Platelet Volume 9.6 fL (7.4-10.4); Monocytes # 0.3 10^3/uL (0.2-0.9); Monocytes % 2.5 %; Neutrophils # 9.07 10^3/uL (1.8-7.7); Neutrophils % 85.7 %; Nucleated Red Blood Cells % 0 %; Platelet Count 194 10^3/cmm (157-399); Red Blood Count 4.35 10^6/uL (3.85-5.65); White Blood Count 10.57 10^3/uL (3.29-11.43)
[2023-10-03 04:30] LABS: Anion Gap 15.1 (5-19); Blood Urea Nitrogen 33 mg/dL (8-23); Calcium 8.4 mg/dL (8.5-10.5); Carbon Dioxide 31 mmol/L (22-29); Chloride 102 mmol/L (98-107); Creatinine Clr Calc Pharmacy 49.8293; Glucose 172 mg/dL (65-115); Magnesium 2.1 mg/dL (1.7-2.3); Osmolality Calculated 307 mOsm/kg (285-295); Potassium 5.1 mmol/L (3.5-5.1); Sodium 143 mmol/L (136-145)
[2023-10-03 04:33] LABS: NT Pro B Type Natriuretic Pept 909 pg/mL (0-125)
[2023-10-03] MEDS: methylPREDNISolone sod succ 40 mg/mL INJ IVP (06:03)
[2023-10-03] MEDS: hyDRALAzine 20 mg/mL INJ 1 mL 10 MG IVP (06:08)
--- NOTE | 2023-10-03 06:12 | PC.NURSE ---
Pt has been hypertensive with SBP >170 for over one hour. Contacted Dr. Mcgill and made aware. New orders received.
[2023-10-03] MEDS: budesonide 0.5 mg/2 mL Neb INHALATION ×2 (08:15→20:13)
[2023-10-03] MEDS: carvedilol 25 mg Tablet PO ×2 (08:22→16:43)
[2023-10-03] MEDS: atorvastatin 40 mg Tablet 20 MG PO (08:22)
[2023-10-03] MEDS: thiamine 100 mg Tablet PO (08:23)
[2023-10-03] MEDS: gabapentin 300 mg Capsule PO ×4 (08:23→20:06)
[2023-10-03] MEDS: fluoxetine 20 mg Capsule 60 MG PO (08:23)
[2023-10-03] MEDS: folic acid 1 mg Tablet PO (08:23)
[2023-10-03] MEDS: hyDRALAzine 10 mg Tablet PO ×2 (08:23→16:43)
[2023-10-03] MEDS: tamsulosin 0.4 mg Capsule PO ×2 (08:23→16:42)
[2023-10-03] MEDS: finasteride 5 mg Tablet PO (08:23)
[2023-10-03] MEDS: amlodipine 10 mg Tablet PO (08:23)
[2023-10-03] MEDS: multivitamin therapeutic Tablet 1 TAB PO (08:23)
[2023-10-03] MEDS: BuSPIRONE 10 mg Tablet PO ×3 (08:23→20:06)
[2023-10-03] MEDS: aspirin 81 mg EC Tablet PO (08:23)
[2023-10-03] MEDS: water for injection-sterile 10 ML 999 ML (10:13)
[2023-10-03] MEDS: cefTRIAXone 1,000 mg SDV 1000 MG IVP (10:13)
[2023-10-03] MEDS: azithromycin 500 MG in sodium chloride 0.9% 250 ML 250 MG IV (10:13)
[2023-10-03] MEDS: oxyCODONE-APAP 10-325 mg Tablet 1 TAB PO ×3 (10:28→20:10)
--- NOTE | 2023-10-03 11:29 | P.PN_ITS ---
Subjective 2 Subjective: Patient was seen this morning, he does continue to complain of shortness of breath and cough, does have 1+ pitting edema no nausea, no vomiting, no chest pain no lightheadedness, no dizziness Vitals/I&O/Wt Last Vital Signs Temp 98.0 F 10/03/23 08:00 Pulse 87 10/03/23 08:27 Resp 16 10/03/23 08:15 BP 159/82 10/03/23 08:00 Pulse Ox 94 10/03/23 08:15 O2 Del Method Nasal Cannula 10/03/23 08:15 O2 Flow Rate 3 10/03/23 08:15 FiO2 40 10/03/23 03:32 10/02/23 10/03/23 10/03/23 22:59 06:59 14:59 Intake Total 230 / 840 240 / 240 Output Total 725 / 1125 550 / 1675 400 / 400 Balance -495 / -285 -550 / -835 -160 / -160 Weight last 48 hrs Weight 151 kg Weight 67.585 kg Weight 145.15 kg Physical Exam 2 Const: COMMON NORMALS: no acute distress and patient oriented x3 Resp: COMMON NORMALS: normal respiratory effort, No retractions and No use of accessory muscles AUSCULTATION: crackles and wheezes Cardio: COMMON NORMALS: regular rate, regular rhythm, S1 normal heart sound present and S2 normal heart sound present RATE: regular rate RHYTHM: r egular rhythm HEART SOUNDS: S1 normal heart sound present and S2 normal heart sound present GI: COMMON NORMALS: Normal to inspection, nondistended, normoactive bowel sounds present and non-tender Extremity: NARRATIVE EXTREMITY EXAM: 1+ pitting edema Neuro: COMMON NORMALS: patient oriented x3 Psych: COMMON NORMALS: mental status grossly normal Data 10/03/23 03:56 10/03/23 03:56 Micro: Microbiology 10/01/23 10:03 Blood Culture - Preliminary Blood NEGATIVE TO DATE 10/01/23 09:54 Blood Culture - Preliminary Blood NEGATIVE TO DATE A&P Assessment and plan (1) Acute on chronic respiratory failure with hypoxia and hypercapnia: (2) Cigarette smoker: (3) CHF (congestive heart failure): Qualifiers: Heart failure chronicity: chronic Heart failure type: diastolic Qualified Code(s): I50.32 - Chronic diastolic (congestive) heart failure (4) COPD exacerbation: (5) Aortic stenosis: (6) HTN (hypertension): Qualifiers: Hypertension type: primary hypertension Qualified Code(s): I10 - Essential (primary) hypertension (7) History of coronary angioplasty with insertion of stent: (8) Obesity: (9) CHF exacerbation: (10) Chest pain: (11) Pneumonia due to COVID-19 virus: Plan Acute hypoxic hypercarbic respiratory failure -Multifactorial -From COPD exacerbation -From a CHF exacerbation, diastolic # COVID-19 pneumonia Plan -Admit to ICU -Monitor respiratory status closely BiPAP therapy due to persistent shortness of breath -Status post Lasix, Solu-Medrol, Rocephin, azithromycin in the emergency room monitor urine output, monitor creatinine monitor potassium -Hold Lasix for today as creatinine is 1.6, urine output 3 L -Solu-Medrol 40 mg IV push every 8 hours -DuoNeb -Budesonide -Continue Rocephin -Continue Zithromycin ? Continue remdesivir -Sputum cultures -Blood cultures -Full code -Lovenox for DVT prophylaxis Chest pain -Aspirin, statin -Serial EKGs, serial troponins, telemetry monitoring Hypertensive urgency -Will resume home blood pressure medications History of alcoholism ? Drinks 3 beers a day ? [facility] protocol Plan for today IV Lasix, continue antibiotics, wean steroids, up out of bed, PT OT, continue remdesivir, continue isolation for COVID-19 Attestations 2 Medical Necessity Statement*: Patient requires hospitalization for acute respiratory failure secondary to COPD, CHF, COVID-19 Diagnoses Acute on chronic respiratory failure with hypoxia and hypercapnia J96.21; J96.22 Cigarette smoker F17.210 Chronic diastolic congestive heart failure I50.32 Heart failure chronicity: chronic Heart failure type: diastolic COPD exacerbation J44.1 Nonrheumatic aortic valve stenosis I35.0 Primary hypertension I10 Hypertension type: primary hypertension History of coronary angioplasty with insertion of stent Z95.5 Obesity E66.9 CHF exacerbation I50.9 Chest pain R07.9 Pneumonia due to COVID-19 virus U07.1; J12.82
[2023-10-03] MEDS: FUROsemide 10 mg/mL SDV 2mL 20 MG IVP (12:05)
--- NOTE | 2023-10-03 13:18 | PC.NURSE ---
Report called to Med surg and given to GONZALEZ Zamarripa
[2023-10-03] MEDS: enoxaparin 40 mg/0.4 mL Syringe SUBCUT (13:26)
[2023-10-03] MEDS: pantoprazole 40 mg SDV IVP (13:26)
--- NOTE | 2023-10-03 13:46 | PC.NURSE ---
Transferred pt to room 264 via w/c. All belongings sent with the pt icluding shoes, wallet, and home O2 tank / cart
[2023-10-03] MEDS: guaiFENesin 600 mg Tablet PO (16:42)
[2023-10-03] MEDS: nystatin 100,000 unit/mL UDC 5 mL 100000 UNIT PO ×2 (17:49→20:06)
[2023-10-03] MEDS: remdesivir 100 MG in sodium chloride 0.9% (100 ml) 80 ML IV (18:26)
[2023-10-03] MEDS: mirtazapine 15 mg Tablet PO (20:06)
[2023-10-04] VITALS (20 sets, daily range): BP systolic 119–164; BP diastolic 63–91; PULSE 61–97; RESP 12–20; TEMP 36.3–36.7; O2SAT 90–97; BMI 45.9
[2023-10-04] MEDS: ipratropium-albuterol 3 mL Neb INHALATION ×5 (00:06→20:00)
[2023-10-04] MEDS: hyDRALAzine 10 mg Tablet PO (00:18)
[2023-10-04 06:11] LABS: Basophils % 0.2 %; Hematocrit 38.7 % (37-53); Lymphocytes # 2.2 10^3/uL (0.8-4.8); Lymphocytes % 17.8 %; Mean Corpuscular HGB Conc 27.6 g/dL (30-55); Mean Corpuscular Hemoglobin 24.5 pg (27-33); Mean Corpuscular Volume 88.8 fl (82-101); Mean Platelet Volume 9.4 fL (7.4-10.4); Monocytes # 1.2 10^3/uL (0.2-0.9); Neutrophils # 8.77 10^3/uL (1.8-7.7); Neutrophils % 71.4 %; Nucleated Red Blood Cells % 0.2 %; Platelet Count 208 10^3/cmm (157-399); Red Blood Count 4.36 10^6/uL (3.85-5.65); White Blood Count 12.28 10^3/uL (3.29-11.43)
[2023-10-04 06:32] LABS: Anion Gap 12.7 (5-19); Blood Urea Nitrogen 39 mg/dL (8-23); Calcium 8.6 mg/dL (8.5-10.5); Carbon Dioxide 32 mmol/L (22-29); Chloride 101 mmol/L (98-107); Creatinine Clr Calc Pharmacy 68.8546; Glucose 94 mg/dL (65-115); Osmolality Calculated 301 mOsm/kg (285-295); Potassium 4.7 mmol/L (3.5-5.1); Sodium 141 mmol/L (136-145)
[2023-10-04 06:37] LABS: NT Pro B Type Natriuretic Pept 1217 pg/mL (0-125)
[2023-10-04] MEDS: budesonide 0.5 mg/2 mL Neb INHALATION ×2 (07:34→20:00)
[2023-10-04] MEDS: predniSONE 20 mg Tablet 40 MG PO (09:47)
[2023-10-04] MEDS: guaiFENesin 600 mg Tablet PO ×2 (09:48→17:48)
[2023-10-04] MEDS: thiamine 100 mg Tablet PO (09:48)
[2023-10-04] MEDS: tamsulosin 0.4 mg Capsule PO ×2 (09:48→17:49)
[2023-10-04] MEDS: atorvastatin 40 mg Tablet 20 MG PO (09:48)
[2023-10-04] MEDS: fluoxetine 20 mg Capsule 60 MG PO (09:49)
[2023-10-04] MEDS: folic acid 1 mg Tablet PO (09:49)
[2023-10-04] MEDS: finasteride 5 mg Tablet PO (09:49)
[2023-10-04] MEDS: multivitamin therapeutic Tablet 1 TAB PO (09:49)
[2023-10-04] MEDS: BuSPIRONE 10 mg Tablet PO ×3 (09:51→20:44)
[2023-10-04] MEDS: carvedilol 25 mg Tablet PO ×2 (09:51→17:48)
[2023-10-04] MEDS: aspirin 81 mg EC Tablet PO (09:51)
[2023-10-04] MEDS: azithromycin 250 mg Tablet PO (09:51)
[2023-10-04] MEDS: gabapentin 300 mg Capsule PO ×4 (09:51→20:45)
[2023-10-04] MEDS: amlodipine 10 mg Tablet PO (09:52)
[2023-10-04] MEDS: nystatin 100,000 unit/mL UDC 5 mL 100000 UNIT PO ×4 (09:52→20:46)
[2023-10-04] MEDS: cefTRIAXone 1,000 mg SDV 1000 MG IVP (10:41)
[2023-10-04] MEDS: hyDRALAzine 10 mg Tablet 25 MG PO (12:18)
--- NOTE | 2023-10-04 12:46 | PC.SOCIAL ---
IMM Update pg 2 of IMM updated and reviewed w/ patient. Copy dated, initialed and placed in chart.
[2023-10-04] MEDS: enoxaparin 40 mg/0.4 mL Syringe SUBCUT (13:51)
[2023-10-04] MEDS: pantoprazole 40 mg SDV IVP (13:52)
--- NOTE | 2023-10-04 15:24 | P.PN_ITS ---
Subjective 2 Subjective: Patient was seen this morning, is at bedside, he does report productive cough, no fevers, no chills, no nausea, no vomiting Vitals/I&O/Wt Last Vital Signs Temp 97.7 F 10/04/23 11:56 Pulse 78 10/04/23 11:56 Resp 17 10/04/23 11:56 BP 146/84 10/04/23 11:56 Pulse Ox 93 10/04/23 11:56 O2 Del Method Nasal Cannula 10/04/23 11:56 O2 Flow Rate 3 10/04/23 07:36 FiO2 40 10/04/23 04:35 10/04/23 10/04/23 10/04/23 06:59 14:59 22:59 Intake Total 240 / 1920 960 / 960 Balance 240 / 920 960 / 960 Weight last 48 hrs Weight 153.722 kg Weight 151 kg Physical Exam 2 Const: COMMON NORMALS: no acute distress and patient oriented x3 Resp: COMMON NORMALS: normal respiratory effort, No retractions, No use of accessory muscles and clear to auscultation bilaterally AUSCULTATION: clear to auscultation bilaterally Cardio: COMMON NORMALS: regular rate, regular rhythm, S1 normal heart sound present and S2 normal heart sound present RATE: regular rate RHYTHM: r egular rhythm HEART SOUNDS: S1 normal heart sound present and S2 normal heart sound present GI: COMMON NORMALS: Normal to inspection, nondistended, normoactive bowel sounds present and non-tender Extremity: NARRATIVE EXTREMITY EXAM: 1+ edema Neuro: COMMON NORMALS: patient oriented x3 Psych: COMMON NORMALS: mental status grossly normal Data 10/04/23 05:55 10/04/23 05:55 Micro: Microbiology 10/02/23 11:40 Gram Stain - Final Sputum - Expectorated Sputum Sputum Culture - Preliminary Coag positive Staphylococcus A&P Assessment and plan (1) Acute on chronic respiratory failure with hypoxia and hypercapnia: (2) Cigarette smoker: (3) CHF (congestive heart failure): Qualifiers: Heart failure type: diastolic Heart failure chronicity: chronic Qualified Code(s): I50.32 - Chronic diastolic (congestive) heart failure (4) COPD exacerbation: (5) Aortic stenosis: (6) HTN (hypertension): Qualifiers: Hypertension type: primary hypertension Qualified Code(s): I10 - Essential (primary) hypertension (7) History of coronary angioplasty with insertion of stent: (8) Obesity: (9) CHF exacerbation: (10) Chest pain: (11) Pneumonia due to COVID-19 virus: Plan Acute hypoxic hypercarbic respiratory failure -Multifactorial -From COPD exacerbation -From a CHF exacerbation, diastolic # COVID-19 pneumonia Plan -Admit to ICU -Monitor respiratory status closely BiPAP therapy due to persistent shortness of breath -Status post Lasix, Solu-Medrol, Rocephin, azithromycin in the emergency room monitor urine output, monitor creatinine monitor potassium -Hold Lasix for today as creatinine is 1.7, urine output 3 L -Continue prednisone -DuoNeb -Budesonide -Continue Rocephin -Continue Zithromycin ? Continue remdesivir -Sputum cultures -Blood cultures -Full code -Lovenox for DVT prophylaxis Chest pain -Aspirin, statin -Serial EKGs, serial troponins, telemetry monitoring Hypertensive urgency -Will resume home blood pressure medications History of alcoholism ? Drinks 3 beers a day ? [facility] protocol Plan for today hold IV Lasix, continue antibiotics, wean steroids, up out of bed, PT OT, continue remdesivir, continue isolation for COVID-19 Attestations 2 Medical Necessity Statement*: Patient requires hospitalization for acute hypoxic respiratory failure secondary COVID-19, COPD, CHF Diagnoses Acute on chronic respiratory failure with hypoxia and hypercapnia J96.21; J96.22 Cigarette smoker F17.210 Chronic diastolic congestive heart failure I50.32 Heart failure type: diastolic Heart failure chronicity: chronic COPD exacerbation J44.1 Nonrheumatic aortic valve stenosis I35.0 Primary hypertension I10 Hypertension type: primary hypertension History of coronary angioplasty with insertion of stent Z95.5 Obesity E66.9 CHF exacerbation I50.9 Chest pain R07.9 Pneumonia due to COVID-19 virus U07.1; J12.82
[2023-10-04] MEDS: remdesivir 100 MG in sodium chloride 0.9% (100 ml) 80 ML IV (17:48)
[2023-10-04] MEDS: linezolid 600 mg Tablet PO (17:49)
[2023-10-04] MEDS: oxyCODONE-APAP 10-325 mg Tablet 1 TAB PO ×2 (17:59→22:34)
[2023-10-04] MEDS: mirtazapine 15 mg Tablet PO (20:45)
[2023-10-05] VITALS (14 sets, daily range): BP systolic 121–175; BP diastolic 66–93; PULSE 63–86; RESP 16–20; TEMP 36.3–36.6; O2SAT 90–97
[2023-10-05] MEDS: hyDRALAzine 10 mg Tablet 25 MG PO ×2 (00:03→12:18)
[2023-10-05] MEDS: ipratropium-albuterol 3 mL Neb INHALATION ×3 (00:09→08:04)
[2023-10-05] MEDS: oxyCODONE-APAP 10-325 mg Tablet 1 TAB PO (05:43)
[2023-10-05] MEDS: budesonide 0.5 mg/2 mL Neb INHALATION (08:03)
[2023-10-05] MEDS: amlodipine 10 mg Tablet PO (08:58)
[2023-10-05] MEDS: gabapentin 300 mg Capsule PO ×2 (08:58→12:20)
[2023-10-05] MEDS: guaiFENesin 600 mg Tablet PO (08:58)
[2023-10-05] MEDS: atorvastatin 40 mg Tablet 20 MG PO (08:58)
[2023-10-05] MEDS: tamsulosin 0.4 mg Capsule PO (08:59)
[2023-10-05] MEDS: folic acid 1 mg Tablet PO (08:59)
[2023-10-05] MEDS: aspirin 81 mg EC Tablet PO (08:59)
[2023-10-05] MEDS: fluoxetine 20 mg Capsule 60 MG PO (08:59)
[2023-10-05] MEDS: predniSONE 20 mg Tablet 40 MG PO (08:59)
[2023-10-05] MEDS: finasteride 5 mg Tablet PO (08:59)
[2023-10-05] MEDS: BuSPIRONE 10 mg Tablet PO (08:59)
[2023-10-05] MEDS: thiamine 100 mg Tablet PO (08:59)
[2023-10-05] MEDS: carvedilol 25 mg Tablet PO (08:59)
[2023-10-05] MEDS: multivitamin therapeutic Tablet 1 TAB PO (08:59)
[2023-10-05] MEDS: linezolid 600 mg Tablet PO (09:00)
[2023-10-05] MEDS: nystatin 100,000 unit/mL UDC 5 mL 100000 UNIT PO ×2 (09:00→12:20)
[2023-10-05 09:36] LABS: Basophils % 0.2 %; Eosinophils # 0.1 10^3/uL (0.0-0.8); Eosinophils % 0.7 %; Hematocrit 38.1 % (37-53); Lymphocytes % 20.2 %; Mean Corpuscular HGB Conc 27.6 g/dL (30-55); Mean Corpuscular Hemoglobin 23.9 pg (27-33); Mean Corpuscular Volume 86.8 fl (82-101); Mean Platelet Volume 9.8 fL (7.4-10.4); Monocytes # 1.2 10^3/uL (0.2-0.9); Monocytes % 12.5 %; Neutrophils # 6.42 10^3/uL (1.8-7.7); Neutrophils % 65.7 %; Nucleated Red Blood Cells % 0 %; Platelet Count 189 10^3/cmm (157-399); Red Blood Count 4.39 10^6/uL (3.85-5.65); Red Cell Distribution Width 19.5 % (12.1-15.1); White Blood Count 9.78 10^3/uL (3.29-11.43)
[2023-10-05 10:01] LABS: Alanine Aminotransferase 17 U/L (0-41); Alkaline Phosphatase 112 U/L (40-130); Anion Gap 11.2 (5-19); Aspartate Amino Transferase 18 U/L (0-40); Blood Urea Nitrogen 44 mg/dL (8-23); Calcium 8.7 mg/dL (8.5-10.5); Carbon Dioxide 32 mmol/L (22-29); Chloride 100 mmol/L (98-107); Creatinine Clr Calc Pharmacy 78.0352; Globulin 2.2 g/dL (1.3-4.6); Glomerular Filtration Rate 47.4 mL/min (90-130); Glucose 125 mg/dL (65-115); Osmolality Calculated 301 mOsm/kg (285-295); Potassium 4.2 mmol/L (3.5-5.1); Sodium 139 mmol/L (136-145); Total Bilirubin 0.5 mg/dL (0.15-1.2); Total Protein 6.2 g/dL (6.6-8.7)
--- NOTE | 2023-10-05 11:06 | PM.DCS ---
Discharge Providers Date of Admission: 10/01/23 12:11 Date of Discharge: October 05, 2023 Attending Provider at Admission: Lobo Rizvi MD Attending Provider at Discharge: Lobo Rizvi MD Primary Care Provider: Barbara Longo DO Diagnoses at Discharge Discharge Diagnosis (1) Acute on chronic respiratory failure with hypoxia and hypercapnia: Status: Resolved (2) Cigarette smoker: Status: Inactive (3) CHF (congestive heart failure): Status: Resolved Qualifiers: Heart failure type: diastolic Heart failure chronicity: chronic Qualified Code(s): I50.32 - Chronic diastolic (congestive) heart failure (4) COPD exacerbation: Status: Resolved (5) Aortic stenosis: Status: Acute (6) HTN (hypertension): Status: Acute Qualifiers: Hypertension type: primary hypertension Qualified Code(s): I10 - Essential (primary) hypertension (7) History of coronary angioplasty with insertion of stent: Status: Acute (8) Obesity: Status: Acute (9) CHF exacerbation: Status: Acute (10) Chest pain: Status: Inactive (11) Pneumonia due to COVID-19 virus: Status: Acute Reason for Visit Reason for Visit: SOB/Low oxygen level Hospital Course Hospital Course Perry Norman is a 62 year old male with a past medical history of COPD, uses a home BiPAP active smoker, history of CHF, hypertension, who presents to [facility] for complaints of shortness of breath. Currently patient is on 3 L, complaining of shortness of breath, nasal flaring, tachypnea, no intercostal retractions, but does have suprasternal retractions, is complaining of shortness of breath, sitting straight up in the gurney, does need that he cannot lie flat, hypertensive soft pressure blood pressure 190/100, tachycardic heart rates at this time have gone into the 100s, patient tells me that the last few days he has been feeling increasingly short of breath, he has had a progressive shortness of breath over the last month, but now he is short of breath with rest, minimal exertion, he cannot lie flat has orthopnea, paroxysmal nocturnal dyspnea he is also had a productive cough over the last few days no fevers no chills he does admit that he continues to smoke, he also reports that he has been having intermittent substernal chest pain, associated shortness of breath, nonradiating, no nausea, vomiting, no diaphoresis, no sick contacts, recent travel Patient was admitted to [facility] for acute hypoxic respiratory failure secondary to COPD exacerbation, CHF exacerbation, COVID-19, with MRSA positive sputum cultures. Patient received IV antibiotics, steroid therapy received remdesivir, IV diuresis, diuresed over 7 L, overall clinically improved. For his COVID-19, remains afebrile, overall clinically improving, has completed 3 treatments of remdesivir, will be discharged on a steroid burst For MRSA positive sputum cultures, is afebrile, overall clinically improving, CRP 8.7, Pro-Warren 0.14 will be discharged on 7 remaining days of p.o. Zyvox For his CHF, as above discharge on p.o. Lasix with potassium replacement therapy, recheck creatinine in 1 week, creatinine on discharge is 1.5 For his COPD, discharged on albuterol, Advair with close follow-up with pulmonary as outpatient Physical Exam Const: COMMON NORMALS: no acute distress and patient oriented x3 Resp: COMMON NORMALS: normal respiratory effort, No retractions, No use of accessory muscles and clear to auscultation bilaterally AUSCULTATION: clear to auscultation bilaterally Cardio: COMMON NORMALS: regular rate, regular rhythm, S1 normal heart sound present and S2 normal heart sound present RATE: regular rate RHYTHM: regular rhythm HEART SOUNDS: S1 normal heart sound present and S2 normal heart sound present GI: COMMON NORMALS: Normal to inspection, nondistended, normoactive bowel sounds present and non-tender Extremity: COMMON NORMALS: no pedal edema Neuro: COMMON NORMALS: patient oriented x3 Psych: COMMON NORMALS: mental status grossly normal Discharge Data Studies Completed and Pending Completed Studies During Hospitalization Category Date Time Status XR chest 1V portable [id number] Stat Exams 10/01/23 09:29 Completed Pending at discharge Category Date Time Status Blood Culture Stat Lab 10/01/23 10:03 Results Radiology Impressions Chest X-Ray 10/01/23 09:29 IMPRESSION: Pulmonary vascular congestion/minimal edema and small pleural effusions. Correlate for congestive heart failure. Laboratory Results WBC 9.78 10^3/uL (3.29-11.43) 10/05/23 09:25 RBC 4.39 10^6/uL (3.85-5.65) 10/05/23 09:25 Hgb 10.50 g/dL (11.27-16.99) L 10/05/23 09:25 Hct 38.1 % (37-53) 10/05/23 09:25 MCV 86.8 fl (82-101) 10/05/23 09:25 MCH 23.9 pg (27-33) L 10/05/23 09:25 MCHC 27.6 g/dL (30-55) L 10/05/23 09:25 RDW 19.5 % (12.1-15.1) H 10/05/23 09:25 Plt Count 189 10^3/cmm (157-399) 10/05/23 09:25 MPV 9.8 fL (7.4-10.4) 10/05/23 09:25 Neut % (Auto) 65.7 % 10/05/23 09:25 Lymph % (Auto) 20.2 % 10/05/23 09:25 [place] % (Auto) 12.5 % 10/05/23 09:25 Eos % (Auto) 0.7 % 10/05/23 09:25 Baso % (Auto) 0.2 % 10/05/23 09:25 Neut # (Auto) 6.42 10^3/uL (1.8-7.7) 10/05/23 09:25 Lymph # (Auto) 2.0 10^3/uL (0.8-4.8) 10/05/23 09:25 [place] # (Auto) 1.2 10^3/uL (0.2-0.9) H 10/05/23 09:25 Eos # (Auto) 0.1 10^3/uL (0.0-0.8) 10/05/23 09:25 Baso # (Auto) 0.0 10^3/uL (0.0-0.1) 10/05/23 09:25 Nucleated RBC % (auto) 0 % 10/05/23 09: Nucleated RBCs # 0.0 /100WBC 10/05/23 09:25 Specimen Type Arterial 10/01/23 09:42 Sample Site Radial, left 10/01/23 09:42 ABG pH 7.36 (7.35-7.45) 10/01/23 09:42 ABG pCO2 58.4 mmHg (35-45) H 10/01/23 09:42 ABG pO2 81.3 mmHg (80.0-100.0) 10/01/23 09:42 ABG PO2/FiO2 Ratio 203 10/01/23 09:42 ABG HCO3 33.2 mmol/L (22-26) H 10/01/23 09:42 ABG O2 Saturation 95.8 10/01/23 09:42 ABG Base Excess 6.4 mmol/L (-2.0-2.0) H 10/01/23 09:42 [place] Test Pos 10/01/23 09:42 A-a O2 Gradient 17.3 mmHg (5-10) H 10/01/23 09:42 Hematocrit 31.4 % (42-52) L 10/01/23 09:42 Hgb O2 Saturation 92.2 % (95-100) L 10/01/23 09:42 Carboxyhemoglobin 2.4 %THgb (0.4-20.1) 10/01/23 09:42 Methemoglobin 1.3 % (0.4-1.5) 10/01/23 09:42 Total Hemoglobin 10.2 g/dL (14-18) L 10/01/23 09:42 Sodium 144.0 mmol/L (131-143) H 10/01/23 09:42 Potassium 4.4 mmol/L (3.5-5.0) 10/01/23 09:42 Glucose 115.0 mg/dL (70-115) 10/01/23 09:42 Ionized Calcium 1.2 mmol/L (1.1-1.4) 10/01/23 09:42 O2 Delivery Device Nc 10/01/23 09:42 O2 Liters/Min 5.0 % 10/01/23 09:42 FiO2 40.0 % 10/01/23 09:42 Moth Proofer ID Cak 10/01/23 09:42 Sodium 139 mmol/L (136-145) 10/05/23 09:25 Potassium 4.2 mmol/L (3.5-5.1) 10/05/23 09:25 Chloride 100 mmol/L (98-107) 10/05/23 09:25 Carbon Dioxide 32 mmol/L (22-29) H 10/05/23 09:25 Anion Gap 11.2 (5-19) 10/05/23 09:25 BUN 44 mg/dL (8-23) H 10/05/23 09:25 Creatinine 1.5 mg/dL (0.7-1.2) H 10/05/23 09:25 GFR Calculation 47.4 mL/min (90-130) L 10/05/23 09:25 Glucose 125 mg/dL (65-115) H 10/05/23 09:25 Estimat Average Glucose 114 10/01/23 09:54 Hemoglobin A1c 5.6 % (4.0-6.0) 10/01/23 09:54 Calculated Osmolality 301 mOsm/kg (285-295) H 10/05/23 09:25 Lactic Acid 1.0 mmol/L (0.5-2.2) 10/01/23 09:54 Calcium 8.7 mg/dL (8.5-10.5) 10/05/23 09:25 Magnesium 2.0 mg/dL (1.7-2.3) 10/04/23 05:55 Total Bilirubin 0.5 mg/dL (0.15-1.2) 10/05/23 09:25 AST 18 U/L (0-40) 10/05/23 09:25 ALT 17 U/L (0-41) 10/05/23 09:25 Alkaline Phosphatase 112 U/L (40-130) 10/05/23 09:25 Troponin T Baseline 19 ng/L (0-15) H 10/01/23 13:03 Troponin T 120 Minute 17.54 ng/L (0-15) H 10/01/23 15:04 Delta Troponin T -1.46 ABS# (0-10) L 10/01/23 15:04 Troponin T Hi Sens 6Hr 15.57 ng/L (0-15) H 10/01/23 19:08 Troponin T Hi Sens 6Hr Delta -3.43 ng/L (0-12) L 10/01/23 19:08 C-Reactive Protein 8.7 mg/L (0.0-4.9) H 10/01/23 09:54 NT-Pro-B Natriuret Pep 1217 pg/mL (0-125) H 10/04/23 05:55 Total Protein 6.2 g/dL (6.6-8.7) L 10/05/23 09:25 Albumin 4.0 g/dL (3.5-5.2) 10/05/23 09:25 Globulin 2.2 g/dL (1.3-4.6) 10/05/23 09:25 Procalcitonin 0.14 ng/mL (0-0.5) 10/01/23 09:54 TSH 1.89 uIU/mL (0.27-4.20) 10/01/23 13:03 Urine Color Yellow (Yellow) 10/01/23 15:50 Urine Appearance Clear (CLEAR) 10/01/23 15:50 Urine pH 7.5 (5-7) 10/01/23 15:50 Ur Specific [place] 1.007 (1.005-1.030) 10/01/23 15:50 Urine Protein 2+ (Negative) A 10/01/23 15:50 Urine Glucose (UA) Negative (Normal) 10/01/23 15:50 Urine Ketones Negative (Negative) 10/01/23 15:50 Urine Blood Negative (Negative) 10/01/23 15:50 Urine Nitrate Negative (Negative) 10/01/23 15:50 Urine Bilirubin Negative (Negative) 10/01/23 15:50 Urine Urobilinogen 0.2 mg/dL (Negative) 10/01/23 15:50 Ur Leukocyte Esterase Negative (Negative) 10/01/23 15:50 Urine RBC 0-2 /hpf (0-2) 10/01/23 15:50 Urine WBC 0-5 /hpf (0-5) 10/01/23 15:50 Ur Squamous Epith Cells 0-5 /hpf (0-5) 10/01/23 15:50 Amorphous Sediment Not Reportable 10/01/23 15:50 Urine Bacteria None seen /hpf (NONE) 10/01/23 15:50 Hyaline Casts 0-4 /lpf H 10/01/23 15:50 Adenovirus (PCR) Not detected (NOT DETECT) 10/01/23 11:25 C. pneumoniae DNA (PCR) Not detected (NOT DETECT) 10/01/23 11:25 Coronavirus 229E (PCR) Cancelled 10/01/23 11:25 Coronavirus 229E (PCR) Not detected (NOT DETECT) 10/01/23 11:25 Human Metapneumovir PCR Not detected (NOT DETECT) 10/01/23 11:25 Influenza A (H1) PCR Not detected (NOT DETECT) 10/01/23 11:25 Influ A (H1/09) PCR Not detected (NOT DETECT) 10/01/23 11:25 Influenza A (H3) PCR Not detected (NOT DETECT) 10/01/23 11:25 Influenza Type A (PCR) Not detected (NOT DETECT) 10/01/23 11:25 Influenza Type B (PCR) Not detected (NOT DETECT) 10/01/23 11:25 M. pneumoniae (PCR) Not detected (NOT DETECT) 10/01/23 11:25 Parainfluenza 1 (PCR) Not detected (NOT DETECT) 10/01/23 11:25 Parainfluenza 2 (PCR) Not detected (NOT DETECT) 10/01/23 11:25 Parainfluenza 3 (PCR) Not detected (NOT DETECT) 10/01/23 11:25 Parainfluenza 4 (PCR) Not detected (NOT DETECT) 10/01/23 11:25 RSV Type A (PCR) Not detected (NOT DETECT) 10/01/23 11:25 RSV Type B (PCR) Not detected (NOT DETECT) 10/01/23 11:25 Entero/Rhino (PCR) Not detected (NOT DETECT) 10/01/23 11:25 SARS-CoV-2 (PCR) Cancelled 10/01/23 11:25 SARS-CoV-2 (PCR) Detected (NOT DETECT) A 10/01/23 11:25 Vitals Last Vital Signs Temp 97.9 F 10/05/23 07:22 Pulse 76 10/05/23 08:20 Resp 16 10/05/23 08:05 BP 175/93 10/05/23 07:22 Pulse Ox 94 10/05/23 08:05 O2 Del Method Nasal Cannula 10/05/23 08:05 O2 Flow Rate 3 10/05/23 08:05 FiO2 35 10/05/23 04:16 Discharge Plan Discharge Patient Disposition: Home Condition: Stable Prescriptions: New aspirin 81 mg Tablet,Delayed Release (Dr/Ec) 81 mg PO DAILY 30 Days Qty: 30 0RF amlodipine 10 mg Tablet 10 mg PO DAILY 30 Days Qty: 30 0RF multivitamin with folic acid [Thera] 400 mcg Tablet 1 tab PO DAILY 30 Days Qty: 30 0RF prednisone 20 mg Tablet 40 mg PO DAILY 5 Days Qty: 10 0RF linezolid 600 mg Tablet 600 mg PO BID 7 Days Qty: 14 0RF potassium chloride [Klor-Con M20] 20 mEq tablet,ER particles/crystals 20 meq PO DAILY 30 Days Qty: 30 0RF albuterol sulfate 90 mcg/actuation HFA aerosol inhaler 1 inh inhalation Q6H PRN (Reason: shortness of breath or wheezing) Qty: 8.5 0RF fluticasone propion-salmeterol [Advair Diskus] 250-50 mcg/dose blister with device 1 inh inhalation BID Qty: 60 0RF thiamine mononitrate (vit B1) [Vitamin B-1 (mononitrate)] 100 mg Tablet 100 mg PO DAILY 30 Days Qty: 30 0RF Continued lovastatin 40 mg tablet 40 mg PO DAILY bisacodyl [Dulcolax (bisacodyl)] 5 mg tablet,delayed release (DR/EC) 5 mg PO DAILY PRN (Reason: Constipation) buspirone 10 mg tablet 10 mg PO TID tadalafil 20 mg tablet 20 mg PO DAILY PRN (Reason: Erectile Dysfunction) Rx Instructions: administer approximately 30min before sexual activity; do not use more than 1 dose per 24hrs fluticasone propionate 50 mcg/actuation spray,suspension 1 spray intranasal BID PRN (Reason: Allergy Symptoms) Rx Instructions: administer into each nostril finasteride 5 mg tablet 5 mg PO QDAY Qty: 90 3RF baclofen 20 mg tablet 20 mg PO TID PRN (Reason: Muscle Pain) (DME) Desulfurizer Hand Brace See Rx Instructions .Route .MEDSUPPLY Qty: 1 0RF Rx Instructions: As directed mirtazapine 15 mg tablet 15 mg PO BEDTIME (DME) LEFT KNEE MEDIAL EXCHANGE OPERATOR BRACE See Rx Instructions .Route .MEDSUPPLY Qty: 1 0RF Rx Instructions: As directed tamsulosin 0.4 mg capsule See Rx Instructions .ROUTE .COMPLEX Qty: 180 3RF Dose Instruction: Take 1 capsule by mouth twice daily Rx Instructions: Take 1 capsule by mouth twice daily ergocalciferol (vitamin D2) 1,250 mcg (50,000 unit) Capsule 1,250 mcg PO Q7D Rx Instructions: (on Sundays) fluoxetine 20 mg Capsule 60 mg PO DAILY testosterone cypionate 200 mg/mL oil 200 mg IM .EVERY 21 DAYS naloxone [Narcan] 4 mg/actuation spray,non-aerosol 4 mg intranasal Q2M PRN (Reason: opioid overdose) Qty: 2 0RF Rx Instructions: spray 1 dose into ONE nostril; alternate nostrils w each dose until help arrives furosemide 40 mg tablet 40 mg PO DAILY diclofenac sodium 1 % gel 2 g TOPICAL BID PRN (Reason: Pain) esomeprazole magnesium 40 mg capsule,delayed release(DR/EC) 40 mg PO BID carvedilol 25 mg tablet 25 mg PO BID oxycodone-acetaminophen [Percocet] 10-325 mg tablet 1 tab PO Q4H PRN (Reason: Pain) 7 Days Qty: 42 0RF Changed gabapentin 600 mg tablet 300 mg PO QID 30 Days Qty: 60 0RF hydralazine 25 mg tablet 25 mg PO BID 30 Days Qty: 60 0RF Discontinued hydralazine 10 mg tablet 10 mg PO .COMPLEX Qty: 120 6RF Rx Instructions: Take 1 tablet by mouth if BP> 160/90. hydrochlorothiazide 12.5 mg tablet 12.5 mg PO DAILY Discharge Orders: Discharge Order (Routine); Ordered 10/05/23 Ordered By: Lobo Rizvi Referrals: Henna Cheek MD [Physician] - 1 week (We have notified your physician's clinic of the need for a follow-up appointment to be scheduled. If you have not heard from them within the next 2 business days, please call them directly. ) Daniel Null M.D [Physician] - 2 weeks (chf We have notified your physician's clinic of the need for a follow-up appointment to be scheduled. If you have not heard from them within the next 2 business days, please call them directly. ) Barbara Longo DO [Primary Care Provider] - 1 week Discharge Diet: Cardiac Discharge Activity: Resume usual activity Patient Instructions: Opioid Safety Activity Restrictions/Additional Instructions: - If you have any chest pain please go to the emergency room ? Please recheck kidney function in 1 week ? Please follow-up with cardiology ? Please follow-up with primary care provider in 1 week to stress -follow-up with pulmonary in 2 weeks Discharge Attestations Time Spent in Discharge Care*: greater than 30 min Quality Metrics Clinical Quality Measures [ No reported AMI, CVA or VTE this stay] Coding Level of Care Code 54261 Total time (in minutes) for Discharge: 45 Diagnoses Acute on chronic respiratory failure with hypoxia and hypercapnia J96.21; J96.22 Cigarette smoker F17.210 Chronic diastolic congestive heart failure I50.32 Heart failure type: diastolic Heart failure chronicity: chronic COPD exacerbation J44.1 Nonrheumatic aortic valve stenosis I35.0 Primary hypertension I10 Hypertension type: primary hypertension History of coronary angioplasty with insertion of stent Z95.5 Obesity E66.9 CHF exacerbation I50.9 Chest pain R07.9 Pneumonia due to COVID-19 virus U07.1; J12.82
[2023-10-05] MEDS: FUROsemide 10 mg/mL SDV 4mL 40 MG IVP (12:16)
[2023-10-05] MEDS: potassium chloride ER 20 mEq Tablet 40 MEQ PO (12:17)
--- NOTE | 2023-10-05 14:32 | PC.OT ---
OT EVALUATION HELD TODAY DUE TO SCHEDULED PATIENT D/C
--- NOTE | 2023-10-05 16:11 | PC.NURSE ---
Called report to Giovanna Dobbs at [facility]
== END 2023-10-05 14:30 | disposition skilled nursing facility (03) | DRG 177 ==
LOC: ER 12:05 → ICU 12:40 → MEDSURG 10-03 13:55
PROVIDERS: Admitting Provider Family Medicine; Emergency Provider Emergency Medicine; PCP Family Medicine; Visit Provider Family Medicine
DX: U07.1 COVID-19 (principal); I50.33 Acute on chronic diastolic (congestive) heart failure; J96.22 Acute and chronic respiratory failure with hypercapnia; J12.82 Pneumonia due to coronavirus disease 2019; J96.21 Acute and chronic respiratory failure with hypoxia; J44.1 Chronic obstructive pulmonary disease with (acute) exacerbation; Z68.42 Body mass index [BMI] 45.0-49.9, adult; F17.210 Nicotine dependence, cigarettes, uncomplicated; I11.0 Hypertensive heart disease with heart failure; I16.0 Hypertensive urgency; I35.0 Nonrheumatic aortic (valve) stenosis; E66.9 Obesity, unspecified; B95.62 Methicillin resistant Staphylococcus aureus infection as the cause of diseases classified elsewhere; F41.9 Anxiety disorder, unspecified; F32.A Depression, unspecified; R07.9 Chest pain, unspecified; F10.20 Alcohol dependence, uncomplicated; Z95.5 Presence of coronary angioplasty implant and graft; Z99.89 Dependence on other enabling machines and devices
CPT/HCPCS: 36415; 36600; 71045; 80048; 80051; 80053; 81003; 81015; 82330; 82805; 83036; 83605; 83735; 83880; 84145; 84443; 84484; 85025; 86140; 87040; 87070; 87077; 87186; 87205; 87486; 87581; 87633; 93005; 94640; 94660; 96365; 96372; 96374; 96375; 96376; 97116; 97161; 99285; J0248; J0360; J0456; J0696; J1650; J1940; J2270; J2470; J2919; J3411; J7050; J7512; J7626; Q0144

== ENCOUNTER → 2023-10-12 13:30 | Outpatient (BNVA) | payer MEDICARE, OTHER, SELFPAY | PROVIDERS: PCP Family Medicine; Visit Provider Nurse Practitioner Family | DX: R06.02 Shortness of breath (principal); R09.02 Hypoxemia; F17.200 Nicotine dependence, unspecified, uncomplicated | CPT/HCPCS: 99213 ==

== ENCOUNTER → 2023-10-27 11:10 | Outpatient (BNVA) | payer MEDICARE, OTHER, SELFPAY | PROVIDERS: PCP Family Medicine; Visit Provider Physician Assistant | DX: Z96.642 Presence of left artificial hip joint (principal) | CPT/HCPCS: 73502; 99213 ==

== ENCOUNTER 2023-11-06 09:56 | Outpatient (CLI) | payer MEDICARE, OTHER, SELFPAY ==
--- NOTE | 2023-11-06 10:00 | CT_ITS ---
WS: [id number] LDCT LUNG CANCER SCREENING HISTORY: lung cancer screening TECHNIQUE: Axial imaging performed from the apices to 1 cm below the costophrenic angles. Coronal and sagittal reformats are submitted with axial MIP series. All CT scans at [facility] use at least one of these dose optimization techniques: automated exposure control; mA and/or kV adjustment per patient size (includes targeted exams where dose is matched to clinical indication); or iterativ e reconstruction. DLP: 158.92 mGy.cm DIvol: Mean CTDIvol: 3.70 (mGy) COMPARISON: 05/25/2020 Diagnostic quality: Satisfactory Lungs: Mild hyperexpansion. Hazy attenuation throughout both lungs related to smoking. No pulmonary m ass or nodule. No endobronchial lesions. Heart: Moderate cardiomegaly.. No pericardial effusion. Other findings: Moderate atherosclerosis aorta. Mild pulmonary hypertension. Mild mid esophageal wall thickening. Small mediastinal and hilar lymph nodes. Mild thyroid enlargement. Advanced degenerative spondylosis in the thoracic spine. Cervical thoracic fusion. CT/CT lung screening [id number] IMPRESSION: LUNG-RADS: 1S-Negative with Significant Findings FOLLOW UP: 12 Month: Continue annual screening with LDCT OTHER FINDINGS (S MODIFIER): Mild mid esophageal wall thickening. Nonspecific a nd may be due to peristalsis. This can be evaluated further by endoscopy if the re is a clinical concern for esophageal neoplasm.
== END 2023-11-06 09:57 | disposition home or self-care (01) ==
LOC: RAD 09:56
PROVIDERS: PCP Family Medicine; Visit Provider Internal Medicine Critical Care Medicine
DX: Z12.2 Encounter for screening for malignant neoplasm of respiratory organs (principal); F17.210 Nicotine dependence, cigarettes, uncomplicated; I51.7 Cardiomegaly; I27.20 Pulmonary hypertension, unspecified; K22.89 Other specified disease of esophagus; E04.9 Nontoxic goiter, unspecified; M47.814 Spondylosis without myelopathy or radiculopathy, thoracic region; Z98.1 Arthrodesis status
CPT/HCPCS: 71271

== ENCOUNTER → 2024-01-02 12:42 | Outpatient (BNVA) | payer MEDICARE, OTHER, SELFPAY | PROVIDERS: PCP Family Medicine; Visit Provider Student in an Organized Health Care Education/Training Program | DX: Z96.642 Presence of left artificial hip joint (principal); M17.12 Unilateral primary osteoarthritis, left knee | CPT/HCPCS: 99213 ==

== ENCOUNTER → 2024-01-24 16:29 | Outpatient (BNVA) | payer MEDICARE, OTHER, SELFPAY | PROVIDERS: PCP Family Medicine; Visit Provider Internal Medicine Cardiovascular Disease | DX: I10 Essential (primary) hypertension (principal); I35.0 Nonrheumatic aortic (valve) stenosis | CPT/HCPCS: 36415; 80048 ==

== ENCOUNTER 2024-01-29 14:34 | Outpatient (CLI) | payer MEDICARE, OTHER, SELFPAY ==
[2024-01-29 15:30] LABS: Anion Gap 8.5 (5-19); Blood Urea Nitrogen 35 mg/dL (8-23); Calcium 9.4 mg/dL (8.5-10.5); Chloride 88 mmol/L (98-107); Glomerular Filtration Rate 33.9 mL/min (90-130); Glucose 214 mg/dL (65-115); Osmolality Calculated 300 mOsm/kg (285-295); Potassium 3.5 mmol/L (3.5-5.1); Sodium 138 mmol/L (136-145)
[2024-01-29 15:55] LABS: Carbon Dioxide 45 mmol/L (22-29)
== END 2024-01-29 14:35 | disposition home or self-care (01) ==
LOC: LAB 14:36
PROVIDERS: PCP Family Medicine; Visit Provider Internal Medicine Cardiovascular Disease
DX: I35.0 Nonrheumatic aortic (valve) stenosis (principal); I10 Essential (primary) hypertension
CPT/HCPCS: 36415; 80048

== ENCOUNTER 2024-02-23 11:46 | Outpatient (CLI) | payer MEDICARE, OTHER, SELFPAY ==
[2024-02-23 12:21] LABS: Anion Gap 12.1 (5-19); Blood Urea Nitrogen 39 mg/dL (8-23); Calcium 9.1 mg/dL (8.5-10.5); Carbon Dioxide 34 mmol/L (22-29); Chloride 97 mmol/L (98-107); Glomerular Filtration Rate 30.4 mL/min (90-130); Glucose 108 mg/dL (65-115); Osmolality Calculated 298 mOsm/kg (285-295); Potassium 4.1 mmol/L (3.5-5.1); Sodium 139 mmol/L (136-145)
== END 2024-02-23 11:47 | disposition home or self-care (01) ==
LOC: LAB 11:50
PROVIDERS: Internal Medicine Cardiovascular Disease; PCP Family Medicine; Visit Provider Family Medicine
DX: I50.32 Chronic diastolic (congestive) heart failure (principal); I50.9 Heart failure, unspecified
CPT/HCPCS: 80048

== ENCOUNTER → 2024-05-01 15:16 | Outpatient (BNVA) | payer MEDICARE, OTHER, SELFPAY | PROVIDERS: PCP Family Medicine; Visit Provider Student in an Organized Health Care Education/Training Program | DX: M25.562 Pain in left knee (principal); M17.12 Unilateral primary osteoarthritis, left knee; Z96.642 Presence of left artificial hip joint | CPT/HCPCS: 73560; 73565; 99213 ==

== ENCOUNTER 2024-05-14 10:34 | Outpatient (CLI) | payer MEDICARE, OTHER, SELFPAY ==
[2024-05-14 11:27] LABS: Blood Urea Nitrogen 39 mg/dL (8-23); Calcium 9.4 mg/dL (8.5-10.5); Carbon Dioxide 35 mmol/L (22-29); Chloride 94 mmol/L (98-107); Glucose 150 mg/dL (65-115); Osmolality Calculated 298 mOsm/kg (285-295); Sodium 138 mmol/L (136-145)
[2024-05-14 11:33] LABS: Anion Gap 13.6 (5-19); Potassium 4.6 mmol/L (3.5-5.1)
== END 2024-05-14 10:35 | disposition home or self-care (01) ==
PROVIDERS: PCP Family Medicine; Visit Provider Internal Medicine Cardiovascular Disease
DX: I50.32 Chronic diastolic (congestive) heart failure (principal); I27.20 Pulmonary hypertension, unspecified; I50.9 Heart failure, unspecified
CPT/HCPCS: 36415; 80048

== ENCOUNTER 2024-06-14 20:56 | Emergency (ER) | payer MEDICARE, SELFPAY ==
[2024-06-14 21:00] VITALS: BP 158/73; PULSE 93; RESP 28; TEMP 36.7; O2SAT 93
--- NOTE | 2024-06-14 21:10 | ECG_ITS ---
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 Measurements Intervals [place] Rate: 89 P: 73 GA: 195 QRS: -42 QRSD: 141 T: 53 QT: 382 QTc: 466 Interpretive Statements SINUS RHYTHM WITH FREQUENT VENTRICULAR PREMATURE COMPLEXES LEFT ATRIAL ENLARGEMENT [-0.15mV P-WAVE IN V1/V2] LEFT AXIS DEVIATION [QRS AXIS < -30] INTRAVENTRICULAR CONDUCTION DELAY [130+ ms QRS DURATION] Compared to ECG 10/01/2023 18:05:32 Left-axis deviation now present Electronically Signed On 06-17-2024 09:21:58 CDT by Daniel Null M.D. [email or web address]
--- NOTE | 2024-06-14 22:05 | XRR_ITS ---
PROCEDURE INFORMATION: Exam: XR Chest Exam date and time: 06/14/2024 10:11 PM Age: 63 years old Clinical indication: Other: Congestive heart failure; Prior surgery; Surgery date: 6+ months; Surgery type: Aortic aneurysm repair, coronary angioplasty with stent, c-spine fusion; C/O intermittent left sided chest pain, increased SOB that started yesterday. PT states that he has had a 15lb wt gain in 2 days, productive cough. PT wearing oxygen via nc @ 4l and is usually 2l at baseline. PT reports that he is on lasix 40mg and home health nurse had him increase this yesterday. HX chf/ copd TECHNIQUE: Imaging protocol: Radiologic exam of the chest. Views: 1 view. COMPARISON: CT lung screening [id number] 11/06/2023 10:13 AM FINDINGS: Lungs: Bibasilar atelectasis. Pleural spaces: Unremarkable. Heart/Mediastinum: Mildly enlarged pericardial silhouette. Bones/joints: Cervicothoracic spinal hardware partially seen. XR/XR chest 1V portable [id number] IMPRESSION: See above.
--- NOTE | 2024-06-14 22:06 | ECG_ITS ---
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 Measurements Intervals [place] Rate: 84 P: 72 TN: 194 QRS: -26 QRSD: 141 T: 63 QT: 389 QTc: 462 Interpretive Statements SINUS RHYTHM WITH OCCASIONAL VENTRICULAR PREMATURE COMPLEXES LEFT ATRIAL ENLARGEMENT [-0.15mV P-WAVE IN V1/V2] INTRAVENTRICULAR CONDUCTION DELAY [130+ ms QRS DURATION] Compared to ECG 06/14/2024 21:03:23 Left-axis deviation no longer present Electronically Signed On 06-17-2024 09:21:51 CDT by Daniel Null M.D. [email or web address]
[2024-06-14 22:12] LABS: Basophils % 0.5 %; Eosinophils # 0.3 10^3/uL (0.0-0.8); Eosinophils % 3.3 %; Hematocrit 53.7 % (37-53); Lymphocytes # 1.1 10^3/uL (0.8-4.8); Lymphocytes % 13.6 %; Mean Corpuscular HGB Conc 28.5 g/dL (30-55); Mean Corpuscular Hemoglobin 26.8 pg (27-33); Mean Corpuscular Volume 94.2 fl (82-101); Mean Platelet Volume 9.1 fL (7.4-10.4); Monocytes # 0.8 10^3/uL (0.2-0.9); Monocytes % 9.8 %; Neutrophils # 5.72 10^3/uL (1.8-7.7); Neutrophils % 72.5 %; Nucleated Red Blood Cells % 0 %; Platelet Count 190 10^3/cmm (157-399); Red Cell Distribution Width 18.3 % (12.1-15.1); White Blood Count 7.88 10^3/uL (3.29-11.43)
[2024-06-14 22:27] LABS: Troponin(5th) Baseline 25 ng/L (0-15)
[2024-06-14 22:35] LABS: Alanine Aminotransferase 14 U/L (0-41); Albumin Level 3.9 g/dL (3.5-5.2); Alkaline Phosphatase 163 U/L (40-130); Aspartate Amino Transferase 13 U/L (0-40); Blood Urea Nitrogen 30 mg/dL (8-23); Calcium 9.4 mg/dL (8.5-10.5); Carbon Dioxide 38 mmol/L (22-29); Chloride 97 mmol/L (98-107); Creatinine Clr Calc Pharmacy 68.5542; Globulin 2.7 g/dL (1.3-4.6); Glomerular Filtration Rate 40.9 mL/min (90-130); Glucose 146 mg/dL (65-115); NT Pro B Type Natriuretic Pept 497 pg/mL (0-125); Osmolality Calculated 303 mOsm/kg (285-295); Sodium 142 mmol/L (136-145); Total Bilirubin 0.4 mg/dL (0.15-1.2); Total Protein 6.6 g/dL (6.6-8.7)
[2024-06-14 22:36] LABS: Anion Gap 11.5 (5-19); Potassium 4.5 mmol/L (3.5-5.1)
--- NOTE | 2024-06-14 23:24 | W.ED.CHESTPA ---
HPI - Chest Pain General: Chief Complaint: Chest Pain Stated Complaint: SOB CP Swelling legs Time Seen by Provider: 06/14/24 21:15 History of Present Illness: Patient presents with complaints of shortness of breath and increased congestion. Patient has a known history of congestive heart failure but denies any prior myocardial infarctions. Home oxygen requirement is typically 2-3L, but was recently increased to 4L by home health nurse due to increased congestion. Patient reports significant weight gain over the past two days. Currently taking Lasix 40mg BID, which was doubled yesterday and today. Denies fever. Reports several similar episodes in the past, including previous episodes of pneumonia. Associated symptoms: Deny abdominal pain, fever(s), nausea or vomiting Related Data Home Medications ?Medication ?Instructions ?Recorded ?Confirmed bisacodyl 5 mg tablet,delayed 5 mg PO DAILY PRN Constipation 03/05/19 05/01/24 release (Dulcolax (bisacodyl)) lovastatin 40 mg tablet 40 mg PO DAILY 03/05/19 05/01/24 ergocalciferol (vitamin D2) 1,250 1,250 mcg PO Q7D 05/25/20 05/01/24 mcg (50,000 unit) capsule fluoxetine 20 mg capsule 60 mg PO DAILY 05/25/20 05/01/24 buspirone 10 mg tablet 10 mg PO TID 06/12/20 05/01/24 tadalafil 20 mg tablet 20 mg PO DAILY PRN Erectile 06/12/20 05/01/24 Dysfunction fluticasone propionate 50 1 spray intranasal BID PRN Allergy 10/28/20 05/01/24 mcg/actuation nasal Symptoms spray,suspension testosterone cypionate 200 mg/mL 200 mg IM .EVERY 21 DAYS 06/23/21 05/01/24 intramuscular oil baclofen 20 mg tablet 20 mg PO TID PRN Muscle Pain 01/31/22 05/01/24 esomeprazole magnesium 40 mg 40 mg PO BID 02/17/22 05/01/24 capsule,delayed release mirtazapine 15 mg tablet 15 mg PO BEDTIME 03/17/23 05/01/24 carvedilol 25 mg tablet 25 mg PO BID 05/02/23 05/01/24 diclofenac sodium 1 % topical gel 2 g topical BID PRN Pain 10/02/23 05/01/24 Previous Rx's ?Medication ?Instructions ?Recorded naloxone 4 mg/actuation nasal 4 mg intranasal Q2M PRN opioid 06/27/21 spray (Narcan) overdose #2 ea finasteride 5 mg tablet 5 mg PO QDAY #90 tabs 07/29/21 tamsulosin 0.4 mg capsule See Rx Instructions .Route 02/24/22 .COMPLEX #180 caps Desizing Pad Operator Brace #1 ea 08/08/22 oxycodone-acetaminophen 10 mg-325 1 tab PO Q4H PRN Pain 7 days #42 05/02/23 mg tablet (Percocet) tabs LEFT KNEE [employer] PROMOTION MANAGER BRACE #1 ea 05/16/23 albuterol sulfate 90 mcg/actuation 1 inh inhalation Q6H PRN shortness 10/05/23 aerosol inhaler of breath or wheezing #8.5 grams gabapentin 600 mg tablet 300 mg (1/2 x 600 mg) PO QID 30 10/05/23 days #60 tabs hydralazine 25 mg tablet 25 mg PO BID 30 days #60 tabs 10/05/23 tiotropium 2.5 mcg-olodaterol 2.5 2 puff inhalation DAILY #4 grams 11/06/23 mcg/actuation mist for inhalation (Stiolto Respimat) furosemide 40 mg tablet (Lasix) 40 mg PO DAILY #90 tabs 01/24/24 potassium chloride 10 mEq 10 meq PO DAILY #90 tabs 01/24/24 tablet,extended release Allergies Allergy/AdvReac Type Severity Reaction Status Date / Time adhesive tape Allergy Mild ALGY-Rash Verified 06/14/24 21:10 ciprofloxacin Allergy Unknown Unknown Verified 06/14/24 21:10 Forced Air Heat Allergy Mild Difficulty Uncoded 06/14/24 21:10 breathing; dries up sinuses. Review of Systems General: Reports: 10 or more systems reviewed and unremarkable except in HPI and below Const: Denies: fever(s), chills or body aches Resp: Denies: productive cough or wheezing GI: Denies: abdominal pain, nausea or vomiting Skin/Breast: Denies: changes in skin color or dry skin Neuro: Denies: numbness in extremities or weakness in extremities Psych: Denies: anxiety Basilio/Lymph: Denies: easy bruising or easy bleeding PFS ED PFSH: Medical History Cigarette smoker Ganglion cyst of volar aspect of right wrist Cubital tunnel syndrome, bilateral CO2 narcosis Pressure ulcers of skin of multiple topographic sites Venous (peripheral) insufficiency Diverticulosis Colon polyps Esophageal candidiasis BPH loc w urin obs/LUTS Alcoholism Obesity Chronic pain Depression with anxiety DJD (degenerative joint disease) Aortic stenosis GERD (gastroesophageal reflux disease) CRI (chronic renal insufficiency) CHF (congestive heart failure) COPD (chronic obstructive pulmonary disease) HTN (hypertension) Sleep apnea LVH (left ventricular hypertrophy) DDD (degenerative disc disease) CKD (chronic kidney disease) Surgical History Previous back surgery x 4 History of right knee joint replacement History of nasal surgery Hx of tonsillectomy History of aortic aneurysm repair History of coronary angioplasty with insertion of stent Family History Mother , in early 70's Heart attack Father No problems noted. Other CAD (coronary artery disease) Social History Smoking and tobacco/nicotine status: current every day tobacco/nicotine user cigarettes Packs smoked per day: 2 Years cigarettes smoked: 50 [ Other cigarette details: Started at age 12] Alcohol intake: current Alcohol intake frequency: few times a month Alcohol type: beer Substance/Drug Use: never Household members: significant other Marital status: Marital status details: No longer with his in last 5 years, who takes care of his financials Current occupational status: disabled Physical Exam Const: COMMON NORMALS: no acute distress, patient oriented x3, alert and well nourished HENMT: COMMON NORMALS: normocephalic HEAD & SCALP: normocephalic Eye: COMMON NORMALS: Equal, round and reactive pupils present, EOMs intact bilaterally and conjunctivae normal CONJUNCTIVA: Yes conjunctivae normal PUPIL: Yes Equal, round and reactive pupils present Resp: COMMON NORMALS: normal respiratory effort, No retractions, No use of accessory muscles, clear to auscultation bilaterally and percussion normal AUSCULTATION: clear to auscultation bilaterally PERCUSSION: percussion normal GI: COMMON NORMALS: Normal to inspection, nondistended, normoactive bowel sounds present, Soft to palpation, non-tender, No hepatosplenomegaly present, no masses and no bruits PALPATION: Yes Soft to palpation and Yes No hepatosplenomegaly present : COMMON NORMALS: Yes no CVA tenderness BLADDER/KIDNEY EXAM: Yes no CVA tenderness Back/Pelvis: COMMON NORMALS: no CVA tenderness Extremity: COMMON NORMALS: normal to inspection, full ROM, capillary refill normal, no joint enlargement, no clubbing, cyanosis or edema, no calf tenderness and no pedal edema Neuro: COMMON NORMALS: patient oriented x3 SENSORIUM/ORIENTATION: Yes alert Skin: COMMON NORMALS: no rashes or lesions noted, turgor normal and no jaundice GENERAL SKIN EXAM: no rashes or lesions noted and turgor normal Course Vital Signs: Vital signs: Vital Signs Temperature 98.0 F 06/14/24 21:00 Pulse Rate 93 06/14/24 21:00 Respiratory Rate 28 H 06/14/24 21:00 Blood Pressure 158/73 06/14/24 21:00 Pulse Oximetry 93 06/14/24 21:00 Oxygen Delivery Me thod Nasal Cannula 06/14/24 21:00 Oxygen Flow Rate 4 06/14/24 21:00 MDM - Chest Pain Medical Decision Making 1. Acute on Chronic Heart Failure Exacerbation - Clinical presentation consistent with volume overload - Currently on increased dose of Lasix 40mg BID - Will monitor response to diuretic therapy 2. Hypoxia - Baseline O2 requirement 2-3L, currently requiring 4L - Differential includes CHF exacerbation vs. pneumonia Plan: 1. Chest X-ray ordered to evaluate for pulmonary edema vs. pneumonia 2. Laboratory studies ordered to assess for heart failure exacerbation 3. Continue current oxygen supplementation 4. Will adjust management plan based on pending diagnostic results Patient felt better after intervention in the emergency department the vital signs were reasonably stable he has home oxygen I do not think that at this point he needs admitted into the hospital but if he fails after IV diuretic can increase dose of his home Lasix and he will need return. Otherwise limit sodium and fluid intake and wear his CPAP for his obstructive sleep apnea. Lab Data 06/14/24 21:43 06/14/24 21:43 Radiology Impressions Chest X-Ray 06/14/24 22:05 IMPRESSION: See above. Laboratory Results WBC 7.88 10^3/uL (3.29-11.43) 06/14/24 21:43 RBC 5.70 10^6/uL (3.85-5.65) H 06/14/24 21:43 Hgb 15.30 g/dL (11.27-16.99) 06/14/24 21:43 Hct 53.7 % (37-53) H 06/14/24 21:43 MCV 94.2 fl (82-101) 06/14/24 21:43 MCH 26.8 pg (27-33) L 06/14/24 21:43 MCHC 28.5 g/dL (30-55) L 06/14/24 21:43 RDW 18.3 % (12.1-15.1) H 06/14/24 21:43 Plt Count 190 10^3/cmm (157-399) 06/14/24 21:43 MPV 9.1 fL (7.4-10.4) 06/14/24 21:43 Neut % (Auto) 72.5 % 06/14/24 21:43 Lymph % (Auto) 13.6 % 06/14/24 21:43 [place] % (Auto) 9.8 % 06/14/24 21:43 Eos % (Auto) 3.3 % 06/14/24 21:43 Baso % (Auto) 0.5 % 06/14/24 21:43 Neut # (Auto) 5.72 10^3/uL (1.8-7.7) 06/14/24 21:43 Lymph # (Auto) 1.1 10^3/uL (0.8-4.8) 06/14/24 21:43 [place] # (Auto) 0.8 10^3/uL (0.2-0.9) 06/14/24 21:43 Eos # (Auto) 0.3 10^3/uL (0.0-0.8) 06/14/24 21:43 Baso # (Auto) 0.0 10^3/uL (0.0-0.1) 06/14/24 21:43 Nucleated RBC % (auto) 0 % 06/14/24 21:43 Nucleated RBCs # 0.0 /100WBC 06/14/24 21:43 Sodium 142 mmol/L (136-145) 06/14/24 21:43 Potassium 4.5 mmol/L (3.5-5.1) 06/14/24 21:43 Chloride 97 mmol/L (98-107) L 06/14/24 21:43 Carbon Dioxide 38 mmol/L (22-29) H 06/14/24 21:43 Anion Gap 11.5 (5-19) 06/14/24 21:43 BUN 30 mg/dL (8-23) H 06/14/24 21:43 Creatinine 1.7 mg/dL (0.7-1.2) H 06/14/24 21:43 GFR Calculation 40.9 mL/min (90-130) L 06/14/24 21:43 Glucose 146 mg/dL (65-115) H 06/14/24 21:43 Calculated Osmolality 303 mOsm/kg (285-295) H 06/14/24 21:43 Calcium 9.4 mg/dL (8.5-10.5) 06/14/24 21:43 Total Bilirubin 0.4 mg/dL (0.15-1.2) 06/14/24 21:43 AST 13 U/L (0-40) 06/14/24 21:43 ALT 14 U/L (0-41) 06/14/24 21:43 Alkaline Phosphatase 163 U/L (40-130) H 06/14/24 21:43 Troponin T Baseline 25 ng/L (0-15) H 06/14/24 21:43 NT-Pro-B Natriuret Pep 497 pg/mL (0-125) H 06/14/24 21:43 Total Protein 6.6 g/dL (6.6-8.7) 06/14/24 21:43 Albumin 3.9 g/dL (3.5-5.2) 06/14/24 21:43 Globulin 2.7 g/dL (1.3-4.6) 06/14/24 21:43 All radiology interpretation(s) finalized by discharge ED provider radiology interpretation(s): Cardiomegaly Discharge Plan Discharge Patient Disposition: Home Clinical Impression: CHF (NYHA class III, ACC/AHA stage C) Condition: Stable Prescriptions: No Action lovastatin 40 mg tablet 40 mg PO DAILY bisacodyl [Dulcolax (bisacodyl)] 5 mg tablet,delayed release (DR/EC) 5 mg PO DAILY PRN (Reason: Constipation) buspirone 10 mg tablet 10 mg PO TID tadalafil 20 mg tablet 20 mg PO DAILY PRN (Reason: Erectile Dysfunction) Rx Instructions: administer approximately 30min before sexual activity; do not use more than 1 dose per 24hrs fluticasone propionate 50 mcg/actuation spray,suspension 1 spray intranasal BID PRN (Reason: Allergy Symptoms) Rx Instructions: administer into each nostril finasteride 5 mg tablet 5 mg PO QDAY Qty: 90 3RF baclofen 20 mg tablet 20 mg PO TID PRN (Reason: Muscle Pain) (DME) Desizing Pad Operator Brace See Rx Instructions .Route .MEDSUPPLY Qty: 1 0RF Rx Instructions: As directed mirtazapine 15 mg tablet 15 mg PO BEDTIME (DME) LEFT KNEE [employer] PROMOTION MANAGER BRACE See Rx Instructions .Route .MEDSUPPLY Qty: 1 0RF Rx Instructions: As directed furosemide [Lasix] 40 mg tablet 40 mg PO DAILY Qty: 90 3RF potassium chloride 10 mEq tablet extended release 10 meq PO DAILY Qty: 90 3RF tamsulosin 0.4 mg capsule See Rx Instructions .ROUTE .COMPLEX Qty: 180 3RF Dose Instruction: Take 1 capsule by mouth twice daily Rx Instructions: Take 1 capsule by mouth twice daily Stiolto Respimat 2.5-2.5 mcg/actuation mist 2 puff inhalation DAILY Qty: 4 6RF ergocalciferol (vitamin D2) 1,250 mcg (50,000 unit) Capsule 1,250 mcg PO Q7D Rx Instructions: (on Sundays) fluoxetine 20 mg Capsule 60 mg PO DAILY testosterone cypionate 200 mg/mL oil 200 mg IM .EVERY 21 DAYS naloxone [Narcan] 4 mg/actuation spray,non-aerosol 4 mg intranasal Q2M PRN (Reason: opioid overdose) Qty: 2 0RF Rx Instructions: spray 1 dose into ONE nostril; alternate nostrils w each dose until help arrives diclofenac sodium 1 % gel 2 g TOPICAL BID PRN (Reason: Pain) gabapentin 600 mg tablet 300 mg PO QID 30 Days Qty: 60 0RF hydralazine 25 mg tablet 25 mg PO BID 30 Days Qty: 60 0RF albuterol sulfate 90 mcg/actuation HFA aerosol inhaler 1 inh inhalation Q6H PRN (Reason: shortness of breath or wheezing) Qty: 8.5 0RF esomeprazole magnesium 40 mg capsule,delayed release(DR/EC) 40 mg PO BID carvedilol 25 mg tablet 25 mg PO BID oxycodone-acetaminophen [Percocet] 10-325 mg tablet 1 tab PO Q4H PRN (Reason: Pain) 7 Days Qty: 42 0RF Discharge Orders: Discharge ED (Routine); Ordered 06/14/24 Ordered By: Angel Carrillo Referrals: Barbara Longo DO [Primary Care Provider, Family Practice] Discharge Diet: Low Salt and Low Cholesterol Discharge Activity: Limit activity as instructed Patient Instructions: Opioid Safety, Pain Management Activity Restrictions/Additional Instructions: 1. Take lasix twice daily and increase potassium intake. 2. Call PCP for follow up and recheck. Print Language: Czech Coding Level of Care Code ED Lpn for Rom Gupta
[2024-06-14] MEDS: FUROsemide 10 mg/mL SDV 10mL 80 MG IVP (23:31)
[2024-06-14 23:44] VITALS: BP 133/70; PULSE 82; RESP 16; O2SAT 90
== END 2024-06-14 23:58 | disposition home or self-care (01) ==
PROVIDERS: Emergency Provider Family Medicine; PCP Family Medicine
DX: I13.0 Hypertensive heart and chronic kidney disease with heart failure and stage 1 through stage 4 chronic kidney disease, or unspecified chronic kidney disease (principal); N18.9 Chronic kidney disease, unspecified; I50.89 Other heart failure; J44.9 Chronic obstructive pulmonary disease, unspecified
CPT/HCPCS: 71045; 80053; 83880; 84484; 85025; 93005; 96374; 99285; J1938

== ENCOUNTER 2024-06-25 17:27 | Inpatient (IN) | payer MEDICARE, OTHER, SELFPAY ==
[2024-06-25] VITALS (25 sets, daily range): BP systolic 94–145; BP diastolic 61–79; PULSE 63–73; RESP 15–24; TEMP 36.2–36.6; O2SAT 71–98; BMI 45.1; BMI 52.2
--- NOTE | 2024-06-25 17:28 | XRR_ITS ---
PROCEDURE INFORMATION: Exam: XR Chest Exam date and time: 06/25/2024 5:47 PM Age: 63 years old Clinical indication: Shortness of breath; Prior surgery; Surgery date: 6+ months; Surgery type: Aortic aneurysm cardiac stent c. Spine; Additional info: SOB TECHNIQUE: Imaging protocol: Radiologic exam of the chest. Views: 1 view. COMPARISON: CR (CHEST, ) 06/14/2024 10:11 PM FINDINGS: Lungs: Mild pulmonary vascular congestion. Mild diffuse interstitial prominence in both lungs which can be seen with mild fluid overload. Pleural spaces: Unremarkable. No pleural effusion. No pneumothorax. Heart/Mediastinum: Stable moderate cardiomegaly. Bones/joints: Unremarkable. XR/XR chest 1V portable [id number] IMPRESSION: 1. Stable moderate cardiomegaly . 2. Mild pulmonary vascular congestion. 3. Mild diffuse interstitial prominence in both lungs which can be seen with mild fluid overload. Differential diagnosis also includes atypical pneumonia.
--- NOTE | 2024-06-25 17:29 | ECG_ITS ---
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: : 1960 Requested By: Barrett Griffiths Order Number: [id number] Reading MD: JEAN MARIE SAMUEL Measurements Intervals [place] Rate: 68 P: 82 [place]: 207 QRS: -6 QRSD: 145 T: 30 QT: 416 QTc: 443 Interpretive Statements SINUS RHYTHM WITH OCCASIONAL VENTRICULAR PREMATURE COMPLEXES LEFT ATRIAL ENLARGEMENT [-0.15mV P-WAVE IN V1/V2] INTRAVENTRICULAR CONDUCTION DELAY [130+ ms QRS DURATION] Compared to ECG 06/14/2024 22:28:14 No significant changes Electronically Signed On 06-27-2024 23:33:22 CDT by JEAN MARIE SAMUEL [email or web address]
[2024-06-25 17:52] LABS: Basophils # 0.1 10^3/uL (0.0-0.1); Basophils % 0.6 %; Eosinophils # 0.1 10^3/uL (0.0-0.8); Eosinophils % 1.3 %; Lymphocytes # 1.2 10^3/uL (0.8-4.8); Lymphocytes % 13.6 %; Mean Corpuscular HGB Conc 28.3 g/dL (30-55); Mean Corpuscular Hemoglobin 27.4 pg (27-33); Mean Corpuscular Volume 96.7 fl (82-101); Mean Platelet Volume 9.5 fL (7.4-10.4); Monocytes # 0.9 10^3/uL (0.2-0.9); Monocytes % 10.2 %; Neutrophils # 6.52 10^3/uL (1.8-7.7); Neutrophils % 73.4 %; Nucleated Red Blood Cells # 0.2 /100WBC; Nucleated Red Blood Cells % 1.9 %; Platelet Count 186 10^3/cmm (157-399); Red Blood Count 5.48 10^6/uL (3.85-5.65); Red Cell Distribution Width 19.6 % (12.1-15.1); White Blood Count 8.89 10^3/uL (3.29-11.43)
--- NOTE | 2024-06-25 17:53 | W.ED.SOB ---
Documented by User: Nirmal Currie, DO 06/27/24 06:41 HPI - SOB/Dyspnea General: Chief Complaint: Shortness of Breath/Dyspnea Stated Complaint: low O2 Time Seen by Provider: 06/25/24 17:39 History of Present Illness: HPI Narrative: 63-year-old male with a history of end-stage COPD is normally on 5 L by nasal cannula. They were checking at home he seemed to be more short of breath they continually turned up his oxygen EMS was eventually called they reported at home that a finger oximeter had him at 50 to 70% O2 saturation. On arrival here he is on 15 L by nonrebreather somewhat sedate but will answer questions drifts off to sleep during conversation. Can answer time place and person he denies chest pain or abdominal pain he has had a minimally productive cough no hemoptysis no history of any PE or DVT he is not on any anticoagulants. Associated symptoms: Reports chest congestion; Deny abdominal pain, chest pain or fever(s) Related Data Home Medications ?Medication ?Instructions ?Recorded ?Confirmed lovastatin 40 mg tablet 40 mg PO DAILY 03/05/19 06/26/24 ergocalciferol (vitamin D2) 1,250 1,250 mcg PO Q7D 05/25/20 06/26/24 mcg (50,000 unit) capsule fluoxetine 20 mg capsule 60 mg PO DAILY 05/25/20 06/26/24 buspirone 10 mg tablet 10 mg PO TID 06/12/20 06/26/24 testosterone cypionate 200 mg/mL 200 mg IM .EVERY 21 DAYS 06/23/21 06/26/24 intramuscular oil esomeprazole magnesium 40 mg 40 mg PO BID 02/17/22 06/26/24 capsule,delayed release mirtazapine 15 mg tablet 15 mg PO BEDTIME 03/17/23 06/26/24 carvedilol 25 mg tablet 25 mg PO BID 05/02/23 06/26/24 alfuzosin 10 mg tablet,extended 10 mg PO DAILY 06/26/24 06/26/24 release 24 hr doxycycline hyclate 100 mg tablet 100 mg PO BID 06/26/24 06/26/24 prednisone 20 mg tablet 20 mg PO BID 06/26/24 06/26/24 tamsulosin 0.4 mg capsule 0.4 mg PO BID 06/26/24 06/26/24 Previous Rx's ?Medication ?Instructions ?Recorded naloxone 4 mg/actuation nasal 4 mg intranasal Q2M PRN opioid 06/27/21 spray (Narcan) overdose #2 ea finasteride 5 mg tablet 5 mg PO QDAY #90 tabs 07/29/21 Jewelry Finisher Brace #1 ea 08/08/22 oxycodone-acetaminophen 10 mg-325 1 tab PO Q4H PRN Pain 7 days #42 05/02/23 mg tablet (Percocet) tabs 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 05/16/23 gabapentin 600 mg tablet 300 mg (1/2 x 600 mg) PO QID 30 10/05/23 days #60 tabs hydralazine 25 mg tablet 25 mg PO BID 30 days #60 tabs 10/05/23 tiotropium 2.5 mcg-olodaterol 2.5 2 puff inhalation DAILY #4 grams 11/06/23 mcg/actuation mist for inhalation (Stiolto Respimat) furosemide 40 mg tablet (Lasix) 40 mg PO DAILY #90 tabs 01/24/24 potassium chloride 10 mEq 10 meq PO DAILY #90 tabs 01/24/24 tablet,extended release Allergies Allergy/AdvReac Type Severity Reaction Status Date / Time adhesive tape Allergy Mild ALGY-Rash Verified 06/14/24 21:10 ciprofloxacin Allergy Unknown Unknown Verified 06/14/24 21:10 Forced Air Heat Allergy Mild Difficulty Uncoded 06/14/24 21:10 breathing; dries up sinuses. Review of Systems Const: Denies: fever(s) or chills Card: Denies: chest pain Resp: Reports: dyspnea, productive cough, wheezing and chest congestion GI: Denies: abdominal pain : Denies: dysuria, urinary frequency or urinary urgency Musc: Denies: neck pain or back pain Skin/Breast: Denies: rash PFSH ED PFSH: Medical History (Updated 06/26/24 @ 13:11 by Benjamin Truong MD) MRSA (methicillin resistant staphylococcus aureus) pneumonia Postoperative wound infection Staphylococcus epidermidis bacteremia Bilateral renal masses Mostly hyperdense cyst. No clear-cut solid masses. Based on overall poor health recommended observation alone. Peripheral arterial disease CHF (NYHA class III, ACC/AHA stage C) Cigarette smoker Ganglion cyst of volar aspect of right wrist Cubital tunnel syndrome, bilateral CO2 narcosis Pressure ulcers of skin of multiple topographic sites Venous (peripheral) insufficiency Diverticulosis Colon polyps Esophageal candidiasis BPH loc w urin obs/LUTS Alcoholism Obesity Chronic pain Depression with anxiety DJD (degenerative joint disease) Aortic stenosis GERD (gastroesophageal reflux disease) CRI (chronic renal insufficiency) CHF (congestive heart failure) COPD (chronic obstructive pulmonary disease) HTN (hypertension) Sleep apnea LVH (left ventricular hypertrophy) DDD (degenerative disc disease) CKD (chronic kidney disease) Surgical History (Updated 06/26/24 @ 13:11 by Benjamin Truong MD) History of ear surgery bilat History of carpal tunnel release of both wrists Previous back surgery x 4 History of right knee joint replacement History of nasal surgery Hx of tonsillectomy History of aortic aneurysm repair History of coronary angioplasty with insertion of stent Family History Mother , in early 70's Heart attack Father No problems noted. Other CAD (coronary artery disease) Social History Smoking and tobacco/nicotine status: current every day tobacco/nicotine user cigarettes Packs smoked per day: 2 Years cigarettes smoked: 50 [ Other cigarette details: Started at age 12] Alcohol intake: current Alcohol intake frequency: few times a month Alcohol type: beer Substance/Drug Use: never Household members: significant other Marital status: Marital status details: No longer with his in last 5 years, who takes care of his financials Current occupational status: disabled Physical Exam Const: GENERAL APPEARANCE: cooperative and lethargic ORIENTATION/CONSCIOUSNESS: Yes lethargic HENMT: COMMON NORMALS: normocephalic, atraumatic and hearing grossly normal bilaterally HEAD & SCALP: normocephalic and atraumatic Resp: COMMON NORMALS: normal respiratory effort, No retractions, No use of accessory muscles and clear to auscultation bilaterally AUSCULTATION: clear to auscultation bilaterally Cardio: COMMON NORMALS: regular rate, regular rhythm and No murmurs present (Cardio) RATE: regular rate RHYTHM: regular rhythm GI: COMMON NORMALS: Soft to palpation and No hepatosplenomegaly present AUSCULTATION: Yes normoactive bowel sounds PALPATION: Yes Soft to palpation, No Tenderness to palpation present (GI), No Guarding due to palpation present (GI) and Yes No hepatosplenomegaly present Extremity: COMMON NORMALS: normal to inspection, capillary refill normal, no clubbing, cyanosis or edema, no calf tenderness and no pedal edema Neuro: SENSORIUM/ORIENTATION: Yes lethargic Skin: COMMON NORMALS: no rashes or lesions noted GENERAL SKIN EXAM: no rashes or lesions noted Procedures Intubation sedative: Etomidate Mg Given: 30 paralytic: Vecuronium Mg Given: 10 Laryngoscope: fiber optic video scope ET Tube Size: 8.5 ET Tube Uncuffed: No Tube Secured Depth (cm): 22 Tube Secured Location: teeth Tube Placement Confirmation: visualized tube passing through cords, equal breath sounds bilaterally, no breath sounds over epigastrium and confirmation by capnometry Patient Tolerated Procedure: well Intubation Complications: none Course Vital Signs: Vital signs: Vital Signs Temperature 97.8 F 06/27/24 00:00 Pulse Rate 67 06/27/24 05:39 Respiratory Rate 16 06/27/24 04:00 Blood Pressure 130/61 06/27/24 04:00 Pulse Oximetry 89 L 06/27/24 05:00 Oxygen Delivery Me thod Mechanical Ventil ation 06/27/24 04:00 Oxygen Flow Rate 80 06/26/24 08:50 Fraction of Inspir ed Oxygen 80 06/27/24 04:00 MDM - SOB/Dyspnea Medical Decision Making Initial ABG reviewed patient started on BiPAP. Other labs still pending patient began to rapidly deteriorate and required intubation he became hypotensive he was given IV fluids and push dose pressors. Care signed out to Dr. Roe at change of shift. See final notes for diagnosis and disposition. Bhupinder: At shift change, patient was intubated with very mild. Additional hypotension for which several doses of push dose epinephrine corrected blood pressure. Chest x-ray shows vascular congestion and clinical picture is not of fluid overload. BNP is significantly elevated from prior studies from the same month and I do suspect fluid overload to be the primary transportation driver behind his hypercapnic respiratory failure. As such, with no white blood cell count elevation and no obvious pneumonia on x-ray, I feel sepsis is less likely and stopped IV fluids as I felt they would be more of a detriment than benefit at this time. He will continue on Levophed and antibiotics were restarted and blood cultures and lactic were sent. He will be admitted to the intensive care unit for further observation and care Lab Data 06/27/24 04:45 06/27/24 04:45 Labs/Radiology: Radiology Impressions Chest/Abdomen/Pelvis CT 06/26/24 09:33 IMPRESSION: 1. Dense pulmonary consolidation in the lower lung riddle consistent with pneumonia. 2. Marked cardiomegaly with pericardial calcifications. 3. Satisfactory position of nasogastric and endotracheal tubes. 4. RIGHT central line terminates at the junction of the brachiocephalic vein and the internal jugular vein. 5. Hepatosplenomegaly. Liver appears cirrhotic. 6. Cholelithiasis without acute cholecystitis. 7. Patient has known bilateral renal masses. Some of these are cystic in appearance and others are up increased attenuation suggesting increased protein content. Cannot characterize renal masses further. Chest X-Ray 06/26/24 11:19 IMPRESSION: 1. Left-sided PICC line ending in the expected region of the lower one third of the SVC. No other significant change in the appearance of the chest. ET tube not visualized. Renal Ultrasound 06/26/24 23:03 IMPRESSION: 1. Difficult evaluation of the kidneys due to patient's body habitus. 2. Multiple bilateral cortical cysts have been previously described. No solid mass or renal obstruction is identified although study is limited. 3. RIGHT renal atrophy has been noted on a prior CT. Laboratory Results WBC 8.89 10^3/uL (3.29-11.43) 06/25/24 17:40 RBC 5.48 10^6/uL (3.85-5.65) 06/25/24 17:40 Hgb 15.00 g/dL (11.27-16.99) 06/25/24 17:40 Hct 53.0 % (37-53) 06/25/24 17:40 MCV 96.7 fl (82-101) 06/25/24 17:40 MCH 27.4 pg (27-33) 06/25/24 17:40 MCHC 28.3 g/dL (30-55) L 06/25/24 17:40 RDW 19.6 % (12.1-15.1) H 06/25/24 17:40 Plt Count 186 10^3/cmm (157-399) 06/25/24 17:40 MPV 9.5 fL (7.4-10.4) 06/25/24 17:40 Neut % (Auto) 73.4 % 06/25/24 17:40 Lymph % (Auto) 13.6 % 06/25/24 17:40 Rush % (Auto) 10.2 % 06/25/24 17:40 Eos % (Auto) 1.3 % 06/25/24 17:40 Baso % (Auto) 0.6 % 06/25/24 17:40 Neut # (Auto) 6.52 10^3/uL (1.8-7.7) 06/25/24 17:40 Lymph # (Auto) 1.2 10^3/uL (0.8-4.8) 06/25/24 17:40 Rush # (Auto) 0.9 10^3/uL (0.2-0.9) 06/25/24 17:40 Eos # (Auto) 0.1 10^3/uL (0.0-0.8) 06/25/24 17:40 Baso # (Auto) 0.1 10^3/uL (0.0-0.1) 06/25/24 17:40 Nucleated RBC % (auto) 1.9 % 06/25/24 17:40 Nucleated RBCs # 0.2 /100WBC 06/25/24 17:40 PT 13.70 SECONDS (12.1-14.9) 06/25/24 17:40 INR 0.98 (0.8-1.2) 06/25/24 17:40 APTT 29.0 SECONDS (23.9-36.7) 06/25/24 17:40 Specimen Type Arterial 06/25/24 19:12 Sample Site Radial, right 06/25/24 19:12 ABG pH 7.34 (7.35-7.45) L 06/25/24 19:12 ABG pCO2 70.6 mmHg (35-45) H* 06/25/24 19:12 ABG pO2 114.0 mmHg (80.0-100.0) H 06/25/24 19:12 ABG PO2/FiO2 Ratio 114 06/25/24 19:12 ABG HCO3 37.7 mmol/L (22-26) H 06/25/24 19:12 ABG O2 Saturation 87.4 06/25/24 17:43 ABG Base Excess 8.8 mmol/L (-2.0-2.0) H 06/25/24 19:12 Augustine Test Pos 06/25/24 19:12 A-a O2 Gradient Not Reportable 06/25/24 17:43 Hematocrit 45.1 % (42-52) 06/25/24 19:12 Hgb O2 Saturation 78.2 % (95-100) L 06/25/24 17:43 Carboxyhemoglobin 9.5 %THgb (0.4-20.1) 06/25/24 17:43 Methemoglobin 1.1 % (0.4-1.5) 06/25/24 17:43 Total Hemoglobin 15.5 g/dL (14-18) 06/25/24 17:43 Sodium 142.0 mmol/L (131-143) 06/25/24 17:43 Potassium 4.8 mmol/L (3.5-5.0) 06/25/24 17:43 Glucose 143.0 mg/dL (70-115) H 06/25/24 17:43 Ionized Calcium 1.2 mmol/L (1.1-1.4) 06/25/24 17:43 O2 Delivery Device Vent 06/25/24 19:12 O2 Liters/Min 5.0 % 06/25/24 17:43 FiO2 100.0 % 06/25/24 19:12 PEEP 8.0 cmH20 06/25/24 19:12 Carbon Furnace Operator ID [email or web address] 06/25/24 19:12 Sodium 141 mmol/L (136-145) 06/25/24 17:40 Potassium 5.0 mmol/L (3.5-5.1) 06/25/24 17:40 Chloride 97 mmol/L (98-107) L 06/25/24 17:40 Carbon Dioxide 33 mmol/L (22-29) H 06/25/24 17:40 Anion Gap 16.0 (5-19) 06/25/24 17:40 BUN 46 mg/dL (8-23) H 06/25/24 17:40 Creatinine 2.6 mg/dL (0.7-1.2) H 06/25/24 17:40 GFR Calculation 25.1 mL/min (90-130) L 06/25/24 17:40 Glucose 141 mg/dL (65-115) H 06/25/24 17:40 Calculated Osmolality 306 mOsm/kg (285-295) H 06/25/24 17:40 Lactic Acid 1.2 mmol/L (0.5-2.2) 06/25/24 17:40 Calcium 9.0 mg/dL (8.5-10.5) 06/25/24 17:40 Total Bilirubin 0.5 mg/dL (0.15-1.2) 06/25/24 17:40 AST 10 U/L (0-40) 06/25/24 17:40 ALT 10 U/L (0-41) 06/25/24 17:40 Alkaline Phosphatase 142 U/L (40-130) H 06/25/24 17:40 Troponin T Baseline 36 ng/L (0-15) H 06/25/24 17:40 Troponin T 120 Minute 34.92 ng/L (0-15) H 06/25/24 19:12 Delta Troponin T -1.08 ABS# (0-10) L 06/25/24 19:12 NT-Pro-B Natriuret Pep 2851 pg/mL (0-125) H 06/25/24 17:40 Total Protein 6.7 g/dL (6.6-8.7) 06/25/24 17:40 Albumin 4.0 g/dL (3.5-5.2) 06/25/24 17:40 Globulin 2.7 g/dL (1.3-4.6) 06/25/24 17:40 Urine Color Yellow (Yellow) 06/25/24 19:44 Urine Appearance Cloudy (CLEAR) A 06/25/24: Urine pH 5.0 (5-7) 06/25/24: Ur Specific [place] 1.020 (1.005-1.030) 06/25/24: Urine Protein 3+ (Negative) A 06/25/24: Urine Glucose (UA) Negative (Normal) 06/25/24: Urine Ketones Trace (Negative) 06/25/24 Urine Blood 1+ (Negative) A 06/25/24 Urine Nitrate Negative (Negative) 06/25/24: Urine Bilirubin Negative (Negative) 06/25/24: Urine Urobilinogen 1.0 mg/dL (Negative) 06/25/24:44 Ur Leukocyte Esterase 2+ (Negative) A 06/25/24 19:44 Urine RBC 0-2 /hpf (0-2) 06/25/24 19:44 Urine WBC >100 /hpf (0-5) H 06/25/24 19:44 Ur Squamous Epith Cells 0-5 /hpf (0-5) 06/25/24 19:44 Amorphous Sediment Not Reportable 06/25/24 19:44 Urine Bacteria None seen /hpf (NONE) 06/25/24 19:44 Hyaline Casts 13.63 /lpf 06/25/24 19:44 Ur Random Sodium 17 mmol/L 06/25/24 19:44 Urine Creatinine 255 mg/dL (39-259) 06/25/24 19:44 Urine Opiates Screen Negative ng/mL (Negative) 06/25/24 19:44 Ur Barbiturates Screen Negative ng/mL (Negative) 06/25/24 19:44 Ur Phencyclidine Scrn Negative ng/mL (Negative) 06/25/24 19:44 Ur Amphetamines Screen Negative ng/mL (Negative) 06/25/24 19:44 U Benzodiazepines Scrn Positive ng/mL (Negative) H 06/25/24 19:44 Urine Cocaine Screen Negative ng/mL (Negative) 06/25/24 19:44 U Marijuana (THC) Screen Negative ng/mL (Negative) 06/25/24 19:44 Ethyl Alcohol < 10 mg/dL (0-10) 06/25/24 15:44 Adenovirus (PCR) Not detected (NOT DETECT) 06/25/24 19:55 C. pneumoniae DNA (PCR) Not detected (NOT DETECT) 06/25/24 19:55 Coronavirus 229E (PCR) Not detected (NOT DETECT) 06/25/24 19:55 Human Metapneumovir PCR Not detected (NOT DETECT) 06/25/24 19:55 Influenza A (H1) PCR Not detected (NOT DETECT) 06/25/24 19:55 Influenza A (PCR) Negative (Negative) 06/25/24 18:00 Influ A (H1/09) PCR Not detected (NOT DETECT) 06/25/24 19:55 Influenza A (H3) PCR Not detected (NOT DETECT) 06/25/24 19:55 Influenza Type A (PCR) Not detected (NOT DETECT) 06/25/24 19:55 Influenza Type B (PCR) Not detected (NOT DETECT) 06/25/24 19:55 M. pneumoniae (PCR) Not detected (NOT DETECT) 06/25/24 19:55 Parainfluenza 1 (PCR) Not detected (NOT DETECT) 06/25/24 19:55 Parainfluenza 2 (PCR) Not detected (NOT DETECT) 06/25/24 19:55 Parainfluenza 3 (PCR) Not detected (NOT DETECT) 06/25/24 19:55 Parainfluenza 4 (PCR) Not detected (NOT DETECT) 06/25/24 19:55 RSV (PCR) Negative (Negative) 06/25/24 18:00 RSV Type A (PCR) Not detected (NOT DETECT) 06/25/24 19:55 RSV Type B (PCR) Not detected (NOT DETECT) 06/25/24 19:55 Entero/Rhino (PCR) Not detected (NOT DETECT) 06/25/24 19:55 SARS-CoV-2 (PCR) Not detected (NOT DETECT) 06/25/24 19:55 Discharge Plan Discharge Patient Disposition: Admitted As Inpatient Admit Provider: Kelly White Clinical Impression: Acute exacerbation of CHF (congestive heart failure), Acute hypercapnic respiratory failure Condition: Stable Coding Level of Care Code ED Yield Engineer for Chg Fwd Documented by User: Mark Roe MD 06/26/24 05:41 HPI - SOB/Dyspnea General: Chief Complaint: Shortness of Breath/Dyspnea Stated Complaint: low O2 Time Seen by Provider: 06/25/24 17:39 Related Data Home Medications ?Medication ?Instructions ?Recorded ?Confirmed lovastatin 40 mg tablet 40 mg PO DAILY 03/05/19 06/26/24 ergocalciferol (vitamin D2) 1,250 1,250 mcg PO Q7D 05/25/20 06/26/24 mcg (50,000 unit) capsule fluoxetine 20 mg capsule 60 mg PO DAILY 05/25/20 06/26/24 buspirone 10 mg tablet 10 mg PO TID 06/12/20 06/26/24 testosterone cypionate 200 mg/mL 200 mg IM .EVERY 21 DAYS 06/23/21 06/26/24 intramuscular oil esomeprazole magnesium 40 mg 40 mg PO BID 02/17/22 06/26/24 capsule,delayed release mirtazapine 15 mg tablet 15 mg PO BEDTIME 03/17/23 06/26/24 carvedilol 25 mg tablet 25 mg PO BID 05/02/23 06/26/24 alfuzosin 10 mg tablet,extended 10 mg PO DAILY 06/26/24 06/26/24 release 24 hr doxycycline hyclate 100 mg tablet 100 mg PO BID 06/26/24 06/26/24 prednisone 20 mg tablet 20 mg PO BID 06/26/24 06/26/24 tamsulosin 0.4 mg capsule 0.4 mg PO BID 06/26/24 06/26/24 Previous Rx's ?Medication ?Instructions ?Recorded naloxone 4 mg/actuation nasal 4 mg intranasal Q2M PRN opioid 06/27/21 spray (Narcan) overdose #2 ea finasteride 5 mg tablet 5 mg PO QDAY #90 tabs 07/29/21 Jewelry Finisher Brace #1 ea 08/08/22 oxycodone-acetaminophen 10 mg-325 1 tab PO Q4H PRN Pain 7 days #42 05/02/23 mg tablet (Percocet) tabs 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 05/16/23 gabapentin 600 mg tablet 300 mg (1/2 x 600 mg) PO QID 30 10/05/23 days #60 tabs hydralazine 25 mg tablet 25 mg PO BID 30 days #60 tabs 10/05/23 tiotropium 2.5 mcg-olodaterol 2.5 2 puff inhalation DAILY #4 grams 11/06/23 mcg/actuation mist for inhalation (Stiolto Respimat) furosemide 40 mg tablet (Lasix) 40 mg PO DAILY #90 tabs 01/24/24 potassium chloride 10 mEq 10 meq PO DAILY #90 tabs 01/24/24 tablet,extended release Allergies Allergy/AdvReac Type Severity Reaction Status Date / Time adhesive tape Allergy Mild ALGY-Rash Verified 06/14/24 21:10 ciprofloxacin Allergy Unknown Unknown Verified 06/14/24 21:10 Forced Air Heat Allergy Mild Difficulty Uncoded 06/14/24 21:10 breathing; dries up sinuses. [facility] ED PFS: Medical History (Updated 06/26/24 @ 13:11 by Benjamin Truong MD) MRSA (methicillin resistant staphylococcus aureus) pneumonia Postoperative wound infection Staphylococcus epidermidis bacteremia Bilateral renal masses Mostly hyperdense cyst. No clear-cut solid masses. Based on overall poor health recommended observation alone. Peripheral arterial disease CHF (NYHA class III, ACC/AHA stage C) Cigarette smoker Ganglion cyst of volar aspect of right wrist Cubital tunnel syndrome, bilateral CO2 narcosis Pressure ulcers of skin of multiple topographic sites Venous (peripheral) insufficiency Diverticulosis Colon polyps Esophageal candidiasis BPH loc w urin obs/LUTS Alcoholism Obesity Chronic pain Depression with anxiety DJD (degenerative joint disease) Aortic stenosis GERD (gastroesophageal reflux disease) CRI (chronic renal insufficiency) CHF (congestive heart failure) COPD (chronic obstructive pulmonary disease) HTN (hypertension) Sleep apnea LVH (left ventricular hypertrophy) DDD (degenerative disc disease) CKD (chronic kidney disease) Surgical History (Updated 06/26/24 @ 13:11 by Benjamin Truong MD) History of ear surgery bilat History of carpal tunnel release of both wrists Previous back surgery x 4 History of right knee joint replacement History of nasal surgery Hx of tonsillectomy History of aortic aneurysm repair History of coronary angioplasty with insertion of stent Family History Mother , in early 70's Heart attack Father No problems noted. Other CAD (coronary artery disease) Social History Smoking and tobacco/nicotine status: current every day tobacco/nicotine user cigarettes Packs smoked per day: 2 Years cigarettes smoked: 50 [ Other cigarette details: Started at age 12] Alcohol intake: current Alcohol intake frequency: few times a month Alcohol type: beer Substance/Drug Use: never Household members: significant other Marital status: Marital status details: No longer with his in last 5 years, who takes care of his financials Current occupational status: disabled Course Vital Signs: Vital signs: Vital Signs Temperature 97.8 F 06/27/24 00:00 Pulse Rate 67 06/27/24 05:39 Respiratory Rate 16 06/27/24 04:00 Blood Pressure 130/61 06/27/24 04:00 Pulse Oximetry 89 L 06/27/24 05:00 Oxygen Delivery Me thod Mechanical Ventil ation 06/27/24 04:00 Oxygen Flow Rate 80 06/26/24 08:50 Fraction of Inspir ed Oxygen 80 06/27/24 04:00 MDM - SOB/Dyspnea Medical Decision Making Care signed out to Dr. Roe at change of shift. See final notes for diagnosis and disposition. Bhupinder: At shift change, patient was intubated with very mild. Additional hypotension for which several doses of push dose epinephrine corrected blood pressure. Chest x-ray shows vascular congestion and clinical picture is not of fluid overload. BNP is significantly elevated from prior studies from the same month and I do suspect fluid overload to be the primary transportation driver behind his hypercapnic respiratory failure. As such, with no white blood cell count elevation and no obvious pneumonia on x-ray, I feel sepsis is less likely and stopped IV fluids as I felt they would be more of a detriment than benefit at this time. He will continue on Levophed and antibiotics were restarted and blood cultures and lactic were sent. He will be admitted to the intensive care unit for further observation and care Lab Data 06/27/24 04:45 06/27/24 04:45 Labs/Radiology: Radiology Impressions Chest/Abdomen/Pelvis CT 06/26/24 09:33 IMPRESSION: 1. Dense pulmonary consolidation in the lower lung riddle consistent with pneumonia. 2. Marked cardiomegaly with pericardial calcifications. 3. Satisfactory position of nasogastric and endotracheal tubes. 4. RIGHT central line terminates at the junction of the brachiocephalic vein and the internal jugular vein. 5. Hepatosplenomegaly. Liver appears cirrhotic. 6. Cholelithiasis without acute cholecystitis. 7. Patient has known bilateral renal masses. Some of these are cystic in appearance and others are up increased attenuation suggesting increased protein content. Cannot characterize renal masses further. Chest X-Ray 06/26/24 11:19 IMPRESSION: 1. Left-sided PICC line ending in the expected region of the lower one third of the SVC. No other significant change in the appearance of the chest. ET tube not visualized. Renal Ultrasound 06/26/24 23:03 IMPRESSION: 1. Difficult evaluation of the kidneys due to patient's body habitus. 2. Multiple bilateral cortical cysts have been previously described. No solid mass or renal obstruction is identified although study is limited. 3. RIGHT renal atrophy has been noted on a prior CT. Laboratory Results WBC 8.89 10^3/uL (3.29-11.43) 06/25/24 17:40 RBC 5.48 10^6/uL (3.85-5.65) 06/25/24 17:40 Hgb 15.00 g/dL (11.27-16.99) 06/25/24 17:40 Hct 53.0 % (37-53) 06/25/24 17:40 MCV 96.7 fl (82-101) 06/25/24 17:40 MCH 27.4 pg (27-33) 06/25/24 17:40 MCHC 28.3 g/dL (30-55) L 06/25/24 17:40 RDW 19.6 % (12.1-15.1) H 06/25/24 17:40 Plt Count 186 10^3/cmm (157-399) 06/25/24 17:40 MPV 9.5 fL (7.4-10.4) 06/25/24 17:40 Neut % (Auto) 73.4 % 06/25/24 17:40 Lymph % (Auto) 13.6 % 06/25/24 17:40 Rush % (Auto) 10.2 % 06/25/24 17:40 Eos % (Auto) 1.3 % 06/25/24 17:40 Baso % (Auto) 0.6 % 06/25/24 17:40 Neut # (Auto) 6.52 10^3/uL (1.8-7.7) 06/25/24 17:40 Lymph # (Auto) 1.2 10^3/uL (0.8-4.8) 06/25/24 17:40 Rush # (Auto) 0.9 10^3/uL (0.2-0.9) 06/25/24 17:40 Eos # (Auto) 0.1 10^3/uL (0.0-0.8) 06/25/24 17:40 Baso # (Auto) 0.1 10^3/uL (0.0-0.1) 06/25/24 17:40 Nucleated RBC % (auto) 1.9 % 06/25/24 17:40 Nucleated RBCs # 0.2 /100WBC 06/25/24 17:40 PT 13.70 SECONDS (12.1-14.9) 06/25/24 17:40 INR 0.98 (0.8-1.2) 06/25/24 17:40 APTT 29.0 SECONDS (23.9-36.7) 06/25/24 17:40 Specimen Type Arterial 06/25/24 19:12 Sample Site Radial, right 06/25/24 19:12 ABG pH 7.34 (7.35-7.45) L 06/25/24 19:12 ABG pCO2 70.6 mmHg (35-45) H* 06/25/24 19:12 ABG pO2 114.0 mmHg (80.0-100.0) H 06/25/24 19:12 ABG PO2/FiO2 Ratio 114 06/25/24 19:12 ABG HCO3 37.7 mmol/L (22-26) H 06/25/24 19:12 ABG O2 Saturation 87.4 06/25/24 17:43 ABG Base Excess 8.8 mmol/L (-2.0-2.0) H 06/25/24 19:12 Augustine Test Pos 06/25/24 19:12 A-a O2 Gradient Not Reportable 06/25/24 17:43 Hematocrit 45.1 % (42-52) 06/25/24 19:12 Hgb O2 Saturation 78.2 % (95-100) L 06/25/24 17:43 Carboxyhemoglobin 9.5 %THgb (0.4-20.1) 06/25/24 17:43 Methemoglobin 1.1 % (0.4-1.5) 06/25/24 17:43 Total Hemoglobin 15.5 g/dL (14-18) 06/25/24 17:43 Sodium 142.0 mmol/L (131-143) 06/25/24 17:43 Potassium 4.8 mmol/L (3.5-5.0) 06/25/24 17:43 Glucose 143.0 mg/dL (70-115) H 06/25/24 17:43 Ionized Calcium 1.2 mmol/L (1.1-1.4) 06/25/24 17:43 O2 Delivery Device Vent 06/25/24 19:12 O2 Liters/Min 5.0 % 06/25/24 17:43 FiO2 100.0 % 06/25/24 19:12 PEEP 8.0 cmH20 06/25/24 19:12 Carbon Furnace Operator ID [email or web address] 06/25/24 19:12 Sodium 141 mmol/L (136-145) 06/25/24 17:40 Potassium 5.0 mmol/L (3.5-5.1) 06/25/24 17:40 Chloride 97 mmol/L (98-107) L 06/25/24 17:40 Carbon Dioxide 33 mmol/L (22-29) H 06/25/24 17:40 Anion Gap 16.0 (5-19) 06/25/24 17:40 BUN 46 mg/dL (8-23) H 06/25/24 17:40 Creatinine 2.6 mg/dL (0.7-1.2) H 06/25/24 17:40 GFR Calculation 25.1 mL/min (90-130) L 06/25/24 17:40 Glucose 141 mg/dL (65-115) H 06/25/24 17:40 Calculated Osmolality 306 mOsm/kg (285-295) H 06/25/24 17:40 Lactic Acid 1.2 mmol/L (0.5-2.2) 06/25/24 17:40 Calcium 9.0 mg/dL (8.5-10.5) 06/25/24 17:40 Total Bilirubin 0.5 mg/dL (0.15-1.2) 06/25/24 17:40 AST 10 U/L (0-40) 06/25/24 17:40 ALT 10 U/L (0-41) 06/25/24 17:40 Alkaline Phosphatase 142 U/L (40-130) H 06/25/24 17:40 Troponin T Baseline 36 ng/L (0-15) H 06/25/24 17:40 Troponin T 120 Minute 34.92 ng/L (0-15) H 06/25/24 19:12 Delta Troponin T -1.08 ABS# (0-10) L 06/25/24 19:12 NT-Pro-B Natriuret Pep 2851 pg/mL (0-125) H 06/25/24 17:40 Total Protein 6.7 g/dL (6.6-8.7) 06/25/24 17:40 Albumin 4.0 g/dL (3.5-5.2) 06/25/24 17:40 Globulin 2.7 g/dL (1.3-4.6) 06/25/24 17:40 Urine Color Yellow (Yellow) 06/25/24 19:44 Urine Appearance Cloudy (CLEAR) A 06/25/24 19: Urine pH 5.0 (5-7) 06/25/24: Ur Specific [place] 1.020 (1.005-1.030) 06/25/24 19:44 Urine Protein 3+ (Negative) A 06/25/24: Urine Glucose (UA) Negative (Normal) 06/25/24: Urine Ketones Trace (Negative) 06/25/24: Urine Blood 1+ (Negative) A 06/25/24: Urine Nitrate Negative (Negative) 06/25/24: Urine Bilirubin Negative (Negative) 06/25/24: Urine Urobilinogen 1.0 mg/dL (Negative) 06/25/24 19:44 Ur Leukocyte Esterase 2+ (Negative) A 06/25/24 19:44 Urine RBC 0-2 /hpf (0-2) 06/25/24:44 Urine WBC >100 /hpf (0-5) H 06/25/24 19:44 Ur Squamous Epith Cells 0-5 /hpf (0-5) 06/25/24 19:44 Amorphous Sediment Not Reportable 06/25/24: Urine Bacteria None seen /hpf (NONE) 06/25/24: Hyaline Casts 13.63 /lpf 06/25/24 19:44 Ur Random Sodium 17 mmol/L 06/25/24 19:44 Urine Creatinine 255 mg/dL (39-259) 06/25/24 19:44 Urine Opiates Screen Negative ng/mL (Negative) 06/25/24 19: Ur Barbiturates Screen Negative ng/mL (Negative) 06/25/24 19:44 Ur Phencyclidine Scrn Negative ng/mL (Negative) 06/25/24 19:44 Ur Amphetamines Screen Negative ng/mL (Negative) 06/25/24 19: U Benzodiazepines Scrn Positive ng/mL (Negative) H 06/25/24 19:44 Urine Cocaine Screen Negative ng/mL (Negative) 06/25/24:44 U Marijuana (THC) Screen Negative ng/mL (Negative) 06/25/24: Ethyl Alcohol < 10 mg/dL (0-10) 06/25/24 15: Adenovirus (PCR) Not detected (NOT DETECT) 06/25/24 19:55 C. pneumoniae DNA (PCR) Not detected (NOT DETECT) 06/25/24 19:55 Coronavirus 229E (PCR) Not detected (NOT DETECT) 06/25/24 19:55 Human Metapneumovir PCR Not detected (NOT DETECT) 06/25/24 19:55 Influenza A (H1) PCR Not detected (NOT DETECT) 06/25/24 19:55 Influenza A (PCR) Negative (Negative) 06/25/24 18:00 Influ A (H1/09) PCR Not detected (NOT DETECT) 06/25/24 19: Influenza A (H3) PCR Not detected (NOT DETECT) 06/25/24 19:55 Influenza Type A (PCR) Not detected (NOT DETECT) 06/25/24 19:55 Influenza Type B (PCR) Not detected (NOT DETECT) 06/25/24 19:55 M. pneumoniae (PCR) Not detected (NOT DETECT) 06/25/24 19:55 Parainfluenza 1 (PCR) Not detected (NOT DETECT) 06/25/24 19:55 Parainfluenza 2 (PCR) Not detected (NOT DETECT) 06/25/24 19:55 Parainfluenza 3 (PCR) Not detected (NOT DETECT) 06/25/24 19:55 Parainfluenza 4 (PCR) Not detected (NOT DETECT) 06/25/24 19:55 RSV (PCR) Negative (Negative) 06/25/24 18:00 RSV Type A (PCR) Not detected (NOT DETECT) 06/25/24 19:55 RSV Type B (PCR) Not detected (NOT DETECT) 06/25/24 19:55 Entero/Rhino (PCR) Not detected (NOT DETECT) 06/25/24 19:55 SARS-CoV-2 (PCR) Not detected (NOT DETECT) 06/25/24 19:55 All radiology interpretation(s) finalized by discharge Discharge Plan Discharge Patient Disposition: Admitted As Inpatient Admit Provider: Kelly White Clinical Impression: Acute exacerbation of CHF (congestive heart failure), Acute hypercapnic respiratory failure Condition: Stable Coding Level of Care Code ED Yield Engineer for Rom Gupta
[2024-06-25 17:55] LABS: ABG PCO2 92.9 mmHg (35-45); ABG PH Result 7.24 (7.35-7.45); Arterial Blood Gas Hematocrit 47.4 % (42-52); Base Excess ABG 7.8 mmol/L (-2.0-2.0); Blood Gas Allen Test Pos; Blood Gas Operator Identificat WALCI; Blood Gas Sample Site Radial, right; Blood Gas Sample Type Arterial; Carboxyhemoglobin 9.5 %THgb (0.4-20.1); HCO3 ABG 39.6 mmol/L (22-26); HGB O2 Sat 78.2 % (95-100); Ionized Calcium Level - ABG 1.2 mmol/L (1.1-1.4); Methemoglobin 1.1 % (0.4-1.5); Oxygen Device NC; Oxygen Saturation ABG 87.4; PO2 ABG 59.9 mmHg (80.0-100.0); Potassium Level - ABG 4.8 mmol/L (3.5-5.0); Total Hemoglobin 15.5 g/dL (14-18)
[2024-06-25] MEDS: methylPREDNISolone sod succ 125 mg/2 mL INJ IVP (17:57)
[2024-06-25] MEDS: ipratropium-albuterol 3 mL Neb INHALATION (18:10)
[2024-06-25] MEDS: piperacillin-tazobactam 3.375 GM in sodium chloride 0.9% (plus) 50 ML IV (18:10)
[2024-06-25 18:19] LABS: Troponin(5th) Baseline 36 ng/L (0-15)
--- NOTE | 2024-06-25 18:20 | XRR_ITS ---
PROCEDURE INFORMATION: Exam: XR Chest Exam date and time: 06/25/2024 6:20 PM Age: 63 years old Clinical indication: Device placement; Ett placement (vent status); Prior surgery; Surgery date: 6+ months; Surgery type: C. Spine cardiac stent; Additional info: Post intubation TECHNIQUE: Imaging protocol: Radiologic exam of the chest. Views: 1 view. COMPARISON: CR (CHEST, ) 06/25/2024 5:47 PM FINDINGS: Tubes, catheters and devices: Endotracheal tube terminates 4.2 cm above the andres. Lungs: Diffuse interstitial prominence in both lungs. Pleural spaces: Blunting of the left costophrenic angle. No pneumothorax. Heart/Mediastinum: Moderate cardiomegaly and pulmonary vascular congestion. Bones/joints: Postsurgical changes of cervical and lower thoracic spine fusion with laminectomy changes. XR/XR chest 1V portable [id number] IMPRESSION: 1. Moderate cardiomegaly and pulmonary vascular congestion. 2. Diffuse interstitial prominence in both lungs. Findings suggestive fluid overload. 3. Blunting of the left costophrenic angle. Left-sided pleural effusion not excluded. 4. Endotracheal tube terminates 4.2 cm above the andres.
[2024-06-25 18:23] LABS: Lactic Sepsis W/Reflex 1.2 mmol/L (0.5-2.2)
[2024-06-25 18:28] LABS: Alanine Aminotransferase 10 U/L (0-41); Alkaline Phosphatase 142 U/L (40-130); Aspartate Amino Transferase 10 U/L (0-40); Blood Urea Nitrogen 46 mg/dL (8-23); Carbon Dioxide 33 mmol/L (22-29); Chloride 97 mmol/L (98-107); Creatinine Clr Calc Pharmacy 44.0029; Globulin 2.7 g/dL (1.3-4.6); Glomerular Filtration Rate 25.1 mL/min (90-130); Glucose 141 mg/dL (65-115); NT Pro B Type Natriuretic Pept 2851 pg/mL (0-125); Osmolality Calculated 306 mOsm/kg (285-295); Sodium 141 mmol/L (136-145); Total Bilirubin 0.5 mg/dL (0.15-1.2); Total Protein 6.7 g/dL (6.6-8.7)
[2024-06-25] MEDS: fentaNYL 1,000 MCG/100 ML BAG 2.5 MCG IV (18:52)
[2024-06-25] MEDS: midazolam hcl 100 MG/100 ML BAG IV (18:53)
--- NOTE | 2024-06-25 18:55 | PC.NURSE ---
PT became unresponsive physician to bedside and RSI. etomidate 30 MG IV @1816 vecc 10MG 1816
[2024-06-25] MEDS: norepinephrine 4 MG/250 ML BAG 7.5 MG IV (19:15)
[2024-06-25 19:24] LABS: ABG PH Result 7.34 (7.35-7.45); Arterial Blood Gas Hematocrit 45.1 % (42-52); Base Excess ABG 8.8 mmol/L (-2.0-2.0); Blood Gas Allen Test Pos; Blood Gas Operator Identificat gerca; Blood Gas Sample Site Radial, right; Blood Gas Sample Type Arterial; HCO3 ABG 37.7 mmol/L (22-26); Oxygen Device VENT
[2024-06-25 19:25] LABS: PO2 FiO2 Ratio Arterial Blood 114
[2024-06-25 19:26] LABS: ABG PCO2 70.6 mmHg (35-45)
[2024-06-25 19:33] LABS: Influenza A NEGATIVE (Negative); Influenza B NEGATIVE (Negative); Respiratory Syncytial Virus Ce NEGATIVE (Negative); SARS-CoV-2 PCR NEGATIVE (Negative)
--- NOTE | 2024-06-25 19:35 | PM.HP ---
Providers/Chief Complaint Admitting Physician: Kelly White MD Primary Care Provider: Barbara Longo DO Chief Complaint: low O2 History of Present Illness Patient was intubated by the time that he was seen for admission. Perry Norman is a 63 yo man w/ CKDIIIB, w/COPD, chronic hypoxic respiratory failure on 5L NC, CHF, who was brought to the ED on 06/25/2024, via EMS, for increased dyspnea and increasing O2 requirement. Per ED notes, patient was feeling increasingly dyspneic and increasing his nasal cannula, so EMS was called. When EMS arrived, the patient's pulse ox showed an O2 sat ranging 50-70%. He was placed on a 15L non-rebreather. On arrival, to the ED, his vital signs were significant for hypoxia of 71%. He was somnolent. He has no leukocytosis, but does have an AUBREY on CKD w/ a Crof 2.6 (baseline 1.7 on 06/14/2024). His ABG was 7.24/93/59.9 on 5L O2. His EKG showed NSR w/ PVCs, and no ST changes, but a QTc of 443. Trop T was minimally elevated. ProBNP was 2851. His CXR showed findings concerning for fluid overload and concern for L. pleural effusion. He was initially started on a BiPAP trial and then intubated and placed on Fentanyl/Versed drip. He was given Epinephrine 0.0mg IVPx 1, 125mg Methylprednisolone, duoneb x 1, Zosyn 3.375g x 1. Per ED nurse, after intubation, neither an NGT or an OGT could be placed in the ED despite attempts by the ED nursing staff and by the ED attending. Per ED nurse, the person that accompanied the patient states that the patient still actively consumes alcohol and smokes 3 ppd. Review of Systems General: Reports: ROS unobtainable due to endotracheal tube, ROS unobtainable due to medical condition and ROS unobtainable due to mental status Medications/Allergies Home Medications ?Medication ?Instructions ?Recorded ?Confirmed ?Last Taken ?Type bisacodyl 5 mg tablet,delayed 5 mg PO DAILY PRN Constipation 03/05/19 05/01/24 09/16/20 History release (Dulcolax (bisacodyl)) lovastatin 40 mg tablet 40 mg PO DAILY 03/05/19 05/01/24 10/01/23 History ergocalciferol (vitamin D2) 1,250 1,250 mcg PO Q7D 05/25/20 05/01/24 10/01/23 History mcg (50,000 unit) capsule fluoxetine 20 mg capsule 60 mg PO DAILY 05/25/20 05/01/24 10/01/23 History buspirone 10 mg tablet 10 mg PO TID 06/12/20 05/01/24 10/01/23 History tadalafil 20 mg tablet 20 mg PO DAILY PRN Erectile 06/12/20 05/01/24 04/30/23 History Dysfunction fluticasone propionate 50 1 spray intranasal BID PRN Allergy 10/28/20 05/01/24 04/30/23 History mcg/actuation nasal Symptoms spray,suspension testosterone cypionate 200 mg/mL 200 mg IM .EVERY 21 DAYS 06/23/21 05/01/24 Unknown History intramuscular oil naloxone 4 mg/actuation nasal 4 mg intranasal Q2M PRN opioid 06/27/21 05/01/24 Unknown Rx spray (Narcan) overdose #2 ea finasteride 5 mg tablet 5 mg PO QDAY #90 tabs 07/29/21 05/01/24 10/01/23 Rx baclofen 20 mg tablet 20 mg PO TID PRN Muscle Pain 01/31/22 05/01/24 10/01/23 History esomeprazole magnesium 40 mg 40 mg PO BID 02/17/22 05/01/24 10/01/23 History capsule,delayed release tamsulosin 0.4 mg capsule See Rx Instructions .Route 02/24/22 05/01/24 10/01/23 Rx .COMPLEX #180 caps Hospital Librarian Brace #1 ea 08/08/22 05/01/24 Unknown Rx mirtazapine 15 mg tablet 15 mg PO BEDTIME 03/17/23 05/01/24 09/30/23 History carvedilol 25 mg tablet 25 mg PO BID 05/02/23 05/01/24 10/01/23 History oxycodone-acetaminophen 10 mg-325 1 tab PO Q4H PRN Pain 7 days #42 03/19/24 03/19/25 06/06/24 Rx mg tablet (Percocet) tabs LEFT KNEE MEDIAL PRODUCTION 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 REPAIRER BRACE #1 ea 05/16/23 05/01/24 Unknown Rx diclofenac sodium 1 % topical gel 2 g topical BID PRN Pain 10/02/23 05/01/24 Unknown History albuterol sulfate 90 mcg/actuation 1 inh inhalation Q6H PRN shortness 10/05/23 05/01/24 Unknown Rx aerosol inhaler of breath or wheezing #8.5 grams gabapentin 600 mg tablet 300 mg (1/2 x 600 mg) PO QID 30 10/05/23 05/01/24 10/01/23 Rx days #60 tabs hydralazine 25 mg tablet 25 mg PO BID 30 days #60 tabs 10/05/23 05/01/24 10/01/23 Rx tiotropium 2.5 mcg-olodaterol 2.5 2 puff inhalation DAILY #4 grams 11/06/23 05/01/24 Unknown Rx mcg/actuation mist for inhalation (Stiolto Respimat) furosemide 40 mg tablet (Lasix) 40 mg PO DAILY #90 tabs 01/24/24 05/01/24 Unknown Rx potassium chloride 10 mEq 10 meq PO DAILY #90 tabs 01/24/24 05/01/24 Unknown Rx tablet,extended release Allergies Allergy/AdvReac Type Severity Reaction Status Date / Time adhesive tape Allergy Mild ALGY-Rash Verified 06/14/24 21:10 ciprofloxacin Allergy Unknown Unknown Verified 06/14/24 21:10 Forced Air Heat Allergy Mild Difficulty Uncoded 06/14/24 21:10 breathing; dries up sinuses. PFSH Acute PFSH: Medical History Cigarette smoker Ganglion cyst of volar aspect of right wrist Cubital tunnel syndrome, bilateral CO2 narcosis Pressure ulcers of skin of multiple topographic sites Venous (peripheral) insufficiency Diverticulosis Colon polyps Esophageal candidiasis BPH loc w urin obs/LUTS Alcoholism Obesity Chronic pain Depression with anxiety DJD (degenerative joint disease) Aortic stenosis GERD (gastroesophageal reflux disease) CRI (chronic renal insufficiency) CHF (congestive heart failure) COPD (chronic obstructive pulmonary disease) HTN (hypertension) Sleep apnea LVH (left ventricular hypertrophy) DDD (degenerative disc disease) CKD (chronic kidney disease) Surgical History Previous back surgery x 4 History of right knee joint replacement History of nasal surgery Hx of tonsillectomy History of aortic aneurysm repair History of coronary angioplasty with insertion of stent Family History Mother , in early 70's Heart attack Father No problems noted. Other CAD (coronary artery disease) Social History Smoking and tobacco/nicotine status: current every day tobacco/nicotine user cigarettes Packs smoked per day: 2 Years cigarettes smoked: 50 [ Other cigarette details: Started at age 12] Alcohol intake: current Alcohol intake frequency: few times a month Alcohol type: beer Substance/Drug Use: never Household members: significant other Marital status: Marital status details: No longer with his in last 5 years, who takes care of his financials Current occupational status: disabled Vitals/I&O/Wt Last Vital Signs Temp 97.2 F L 06/25/24 17:31 Pulse 65 06/25/24 19:15 Resp 18 06/25/24 19:15 BP 106/77 06/25/24 19:15 Pulse Ox 98 06/25/24 19:15 O2 Del Method Mechanical Ventilation 06/25/24 19:00 O2 Flow Rate 5 06/25/24 17:31 FiO2 50 06/25/24 18:08 06/25/24 06/25/24 06/25/24 06:59 14:59 22:59 Intake Total 50 / 50 Balance 50 / 50 Weight last 48 hrs Weight 151.046 kg Physical Exam Const: GENERAL APPEARANCE: comfortable ORIENTATION/CONSCIOUSNESS: Yes Other orientation findings (intubated) HENMT: HEAD & SCALP: normocephalic and atraumatic NOSE: Normal external nose present EXTERNAL EAR: Yes external ears normal MOUTH: Normal oral and palatal mucosa present Eye: CONJUNCTIVA: Yes conjunctivae normal PUPIL: Yes Equal, round and reactive pupils present Neck/C-Spine: GENERAL: Yes normal visual inspection and Yes trachea midline CAROTIDS: No bruit Lymph: OTHER: no cervical or supraclavicular LAD Resp: OTHER: coarse inspiratory and expiratory breath sounds bilaterally. Intubated Cardio: OTHER: RRR, no m/r/g or clicks. No carotid bruits b/l. 2+ Radial and DP pulses b/l. GI: OTHER: large rotund abdomen. BS+, NT, ND, no guarding, rigidity, rebound tenderness or hepatosplenomegaly. Extremity: NARRATIVE EXTREMITY EXAM: no clubbing, no cyanosis or pedal edema. Neuro: DYLAN COMA SCALE: document GCS findings Dylan coma scale eye opening: None [place] coma scale verbal response: None [place] coma scale motor response: None [place] coma scale total score: 3 MOTOR EXAM: Abnormal muscle tone present Psych: OTHER: unable to assess given his mental status. Skin: NARRATIVE SKIN EXAM: hyperkeratotic skin in b/l legs. approximately 1-2cm stage II ulcer on the plantar aspect of the L. lower extremity (below the 5th digit). Data 06/25/24 17:40 06/25/24 17:40 Micro: Microbiology 06/25/24 19:12 Blood Culture - Preliminary Blood SPECIMEN COLLECTED 06/25/24 17:40 Blood Culture - Preliminary Blood SPECIMEN COLLECTED A&P Assessment and plan (1) Alcohol use disorder: (2) ETOH abuse: (3) Acute exacerbation of CHF (congestive heart failure): (4) Acute respiratory failure with hypoxia and hypercapnia: (5) Acute kidney injury superimposed on stage 3b chronic kidney disease: (6) COPD exacerbation: Plan Perry Norman is a 63 yo man w/ CKDIIIB, w/COPD, chronic hypoxic respiratory failure on 5L NC, CHF, who was brought to the ED on 06/25/2024, via EMS, for increased dyspnea and increasing O2 requirement and was intubated for acute on chronic hypoxic hypercapneic respiratory failure. #Altered Mental Status: Multifactorial causes #Acute on chronic hypoxic hypercapneic respiratory failure #MARY ANN - Intubated. Wean vent as appropriate. - F/u BCx, Sputum cx, #Acute COPD exacerbation - Continue solumedrol, scheduled and prn duonebs, antibiotics #Acute on chronic HFpEF #Mild Aortic stenosis: noted on 07/2023 ECHO #Pulmonary Hypertension - noted on 07/2023 ECHO - Ordered Furosemide 80mg IVP x 1. #Hypotension: Unclear if this was due to the medications given for intubation or if he is in actual cardiogenic shock. - Will continue to monitor. On Norepinephrine. Keep MAP >65. #chronic venous insufficiency: No pedal or pitting edema noted. #AUBREY on CKDIIIB: US kidney ordered. #Hx of Cervicothoracic spine fusion: May influence why it is difficult to insert and NGT or OGT. May need to consult Gen Surg in the AM to place an NG or OG tube. #FEN/GI: Consult mains and service supervisor for tube feed recs. #HTN: No acute issues at this time. #HLD: Hold po meds #Tobacco use d/o #Alcohol use d/o w/ concern for alcohol w/drawal: banana bag ordered. IV Thiamine ordered since patient does not have an NGT. #Stage II ulcer on the planter aspect of the L. foot (below the 5th metatarsal) - F/u wound care clinic instructions. DVT ppx: Lovenox GI ppx: Pantoprazole. PDMP PDMP Reviewed: Not Reviewed Procedures Central Line Placement^ Right SC: Time out performed: Yes Patient placed on monitor/pulse ox: Yes MD prep: mask, gown and gloves Central line prep: Chlorhexidine scrub Local anesthesia used: other anesthetic (Fentanyl and Versed drip) Ultrasound used for placement: Yes Central line lumen inserted: triple Post procedure: sutured in place, good blood return, all ports aspirated, flushed, capped and sterile dressing applied Post procedure x-ray: other (CXR ordered) Patient tolerated procedure: well and no complications Complications: none (pending CXR) Additional comments: Supervised by ED physician, Mark Roe MD. Attestations Medical Necessity Statement*: Patient needs to be hospitalized for >2 midnights for Altered Mental Status, Acute on chronic hypoxic hypercapneic respiratory failure requiring intubation, AUBREY on CKDIII, acute copd exacerbation. Coding Level of Care Code Critical Care >/= 30 minutes Critical care time (in minutes): 90 The high probability of a clinically significant, sudden or life threatening deterioration, as referenced in this documentation, required my full and direct attention, intervention and personal management. The critical care time shown is in addition to time spent performing any reported separately billable procedures and includes the following: [x] Data and vital sign review and interpretation [x] Patient assessment, examination and intervention [x] Medication orders and management [x] Patient/Family updates as able [x] Care Coordination and Documentation. Other Coding Information Procedural care (documented in another note) Diagnoses Alcohol use disorder F10.90 ETOH abuse F10.10 Acute exacerbation of CHF (congestive heart failure) I50.9 Acute respiratory failure with hypoxia and hypercapnia J96.01; J96.02 Acute kidney injury superimposed on stage 3b chronic kidney disease N17.9; N18.32 COPD exacerbation J44.1
[2024-06-25 19:48] LABS: Troponin 5 2HR 34.92 ng/L (0-15)
[2024-06-25 19:53] LABS: Troponin 5 2HR Delta -1.08 ABS# (0-10)
[2024-06-25 20:08] LABS: Bilirubin Urine Negative (Negative); Blood Urine 1+ (Negative); Glucose Urine UA Negative (Normal); Ketones Urine Trace (Negative); Leukocyte Esterase Urine 2+ (Negative); Nitrate Urine Negative (Negative); Protein Urine 3+ (Negative); Urine Appearance Cloudy (CLEAR); Urine Color Yellow (Yellow)
[2024-06-25 20:09] LABS: INR 0.98 (0.8-1.2)
[2024-06-25 20:10] LABS: Add Urine Microscopic? YES; Bacteria Urine None Seen /hpf; Hyaline Casts Urine 13.63 /lpf; RBC Urine 0-2 /hpf (0-2); Squamous Epithelial Cell Urine 0-5 /hpf (0-5); WBC Urine >100 /hpf (0-5)
--- NOTE | 2024-06-25 20:14 | ECG_ITS ---
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
[2024-06-25 20:17] LABS: Add Urine Culture? Yes; UA Slide Review UA Slide Review Perf
[2024-06-25] MEDS: pantoprazole 40 mg SDV IVP (20:23)
[2024-06-25] MEDS: enoxaparin 40 mg/0.4 mL Syringe SUBCUT (20:23)
[2024-06-25 21:08] LABS: Glucose Point of Care 140 mg/dL (70-110)
--- NOTE | 2024-06-25 23:17 | XRR_ITS ---
PROCEDURE INFORMATION: Exam: XR Chest Exam date and time: 06/25/2024 11:41 PM Age: 63 years old Clinical indication: Other vascular access device placement or adjustment; Central line, tunnelled; Additional info: S/P placement of subclavian central line TECHNIQUE: Imaging protocol: Radiologic exam of the chest. Views: 1 view. COMPARISON: CR (CHEST, ) 06/25/2024 6:20 PM FINDINGS: Tubes, catheters and devices: Endotracheal tube tip 3.8 cm above the andres. Right central venous catheter tip in the region of the subclavian vein. Lungs: Patchy ground-glass airspace opacities suggesting alveolar edema. Pleural spaces: Trace right pleural effusion. Heart/Mediastinum: Cardiomegaly and pulmonary vascular congestion. Bones/joints: Surgical hardware in the spine. XR/XR chest 1V portable [id number] IMPRESSION: 1. Endotracheal tube tip 3.8 cm above the andres. 2. Right central venous catheter tip in the region of the subclavian vein. 3. Surgical hardware in the spine. 4. Trace right pleural effusion. 5. Cardiomegaly and pulmonary vascular congestion. 6. Patchy ground-glass airspace opacities suggesting alveolar edema.
[2024-06-25] MEDS: FUROsemide 10 mg/mL SDV 10mL 80 MG IVP (23:28)
[2024-06-25] MEDS: thiamine 100 mg/mL 2mL SDV IVP (23:29)
--- NOTE | 2024-06-25 23:45 | ANES.PROC ---
Anesthesia Procedures Procedure/Date: 06/25/24 Central Venous Insert: Central Venous Line: R. subclavian central venous catheter insertion.
[2024-06-25 23:49] LABS: Adenovirus Not Detected (NOT DETECT); Chlamydia Pneumoniae Not Detected (NOT DETECT); Coronavirus 229E,HKU1,NL63,OC4 Not Detected (NOT DETECT); Human Metapneumovirus Not Detected (NOT DETECT); Human Rhinovirus/Enterovirus Not Detected (NOT DETECT); Influenza A Not Detected (NOT DETECT); Influenza A H1 Not Detected (NOT DETECT); Influenza A H1-2009 Not Detected (NOT DETECT); Influenza A H3 Not Detected (NOT DETECT); Influenza B Not Detected (NOT DETECT); Mycoplasma Pneumoniae Not Detected (NOT DETECT); Parainfluenza Virus Type 1 Not Detected (NOT DETECT); Parainfluenza Virus Type 2 Not Detected (NOT DETECT); Parainfluenza Virus Type 3 Not Detected (NOT DETECT); Parainfluenza Virus Type 4 Not Detected (NOT DETECT); Respiratory Syncytial Virus A Not Detected (NOT DETECT); Respiratory Syncytial Virus B Not Detected (NOT DETECT); SARS-COV-2 Not Detected (NOT DETECT)
--- NOTE | 2024-06-25 23:50 | ECG_ITS ---
ibabybox Test Date: 2024-06-26 Pat Name: Perry Norman Department: Room: ICU03 Gender: Male Discharge Planner: : 1960 Requested By: Nirmal Cespedes Order Number: [id number] Reading MD: JEAN MARIE SAMUEL Measurements Intervals [place] Rate: 66 P: 88 MO: 196 QRS: 213 QRSD: 137 T: 50 QT: 402 QTc: 421 Interpretive Statements SINUS RHYTHM WITH OCCASIONAL VENTRICULAR PREMATURE COMPLEXES POSSIBLE LEFT ATRIAL ENLARGEMENT [-0.1mV P-WAVE IN V1/V2] RIGHT AXIS DEVIATION [QRS AXIS > 100] INTRAVENTRICULAR CONDUCTION DELAY [130+ ms QRS DURATION] Compared to ECG 06/25/2024 20:14:42 Right-axis deviation now present Electronically Signed On 06-27-2024 23:40:21 CDT by JEAN MARIE SAMUEL [email or web address]
[2024-06-26] VITALS (50 sets, daily range): BP systolic 107–157; BP diastolic 54–99; PULSE 64–78; RESP 14–30; TEMP 36.4–37.2; O2SAT 85–96
[2024-06-26 00:11] LABS: Troponin 5 6HR 29.32 ng/L (0-15)
[2024-06-26 00:13] LABS: Troponin 5 6HR Delta -6.68 ng/L (0-12)
[2024-06-26 00:35] LABS: Free T4 Free Thyroxine 1.35 ng/dL (0.82-1.77); Thyroid Stimulating Hormone 1.18 uIU/mL (0.27-4.20)
[2024-06-26] MEDS: ipratropium-albuterol 3 mL Neb INHALATION ×6 (00:58→20:08)
[2024-06-26 02:05] LABS: Glucose Point of Care 152 mg/dL (70-110)
[2024-06-26 03:56] LABS: Alanine Aminotransferase 8 U/L (0-41); Albumin Level 3.5 g/dL (3.5-5.2); Alkaline Phosphatase 128 U/L (40-130); Aspartate Amino Transferase 9 U/L (0-40); Blood Urea Nitrogen 47 mg/dL (8-23); Carbon Dioxide 32 mmol/L (22-29); Chloride 96 mmol/L (98-107); Creatinine Clr Calc Pharmacy 51.8502; Globulin 3.1 g/dL (1.3-4.6); Glomerular Filtration Rate 27.5 mL/min (90-130); Glucose 152 mg/dL (65-115); Magnesium 2.2 mg/dL (1.7-2.3); Osmolality Calculated 305 mOsm/kg (285-295); Sodium 140 mmol/L (136-145); Total Bilirubin 0.5 mg/dL (0.15-1.2); Total Protein 6.6 g/dL (6.6-8.7)
[2024-06-26 04:44] LABS: ABG PH Result 7.39 (7.35-7.45); Arterial Blood Gas Hematocrit 47.6 % (42-52); Blood Gas Allen Test Pos; Blood Gas Operator Identificat JDB; Blood Gas Sample Site Radial, right; Blood Gas Sample Type Arterial; HCO3 ABG 39.2 mmol/L (22-26); Oxygen Device VENT; PO2 ABG 64.4 mmHg (80.0-100.0); PO2 FiO2 Ratio Arterial Blood 80
[2024-06-26 04:58] LABS: ABG PCO2 65.1 mmHg (35-45)
[2024-06-26] MEDS: piperacillin-tazobactam 3.375 GM in sodium chloride 0.9% (plus) 50 ML IV ×3 (05:11→22:15)
[2024-06-26] MEDS: pantoprazole 40 mg SDV IVP (05:11)
[2024-06-26] MEDS: perflutren protein-a microsphr 0.22 mg/mL SDV 3 mL IV (05:39)
[2024-06-26 06:22] LABS: Glucose Point of Care 146 mg/dL (70-110)
[2024-06-26 07:16] LABS: Glucose Point of Care 315 mg/dL (70-110)
[2024-06-26] MEDS: insulin lispro 100 unit/1 mL SUBCUT ×2 (08:04→22:11)
[2024-06-26] MEDS: thiamine 100 mg/mL 2mL SDV IVP (08:05)
--- NOTE | 2024-06-26 08:21 | XR_ITS ---
WS: [id number] Exam: XR chest 1V portable [id number] Date/Time of Exam: 06/26/2024 8:44 AM Reason For Exam: mechanical vent Comparison 06/25/2024. Mild cardiac enlargement with pulmonary vascular congestion. Patchy infiltrates in the mid LEFT lung and RIGHT basal region. LEFT basal pleural effusion. No pneumothorax. ET tube ending about 4 cm above the andres in good position. An enteric tube extends below the diaphragm but the tip is not visible. Fusion hardware noted in the cervical and thoracic spine. RIGHT subclavian central line probably ending in the medial RIGHT subclavian vein unchanged in position. Bony structures are intact as visualized. XR/XR chest 1V portable [id number] IMPRESSION: 1. ET tube, enteric tube and RIGHT subclavian central line in place as describe d above. 2. Cardiac enlargement with pulmonary vascular congestion. 3. Patchy infiltrates in the mid LEFT lung and RIGHT basal region that may benita roro pneumonia. LEFT basal pleural effusion unchanged.
--- NOTE | 2024-06-26 08:41 | PC.PHAR ---
Pt has not had a med rec done in awhile. Several medications are no longer filled at the pharmacy. Removed are the following: Albuterol Inh. 1 spray q6h prn sob-10/10/23 Baclofen 20mg tid prn-01/31/22 Dulcolax 5mg daily prn-03/04/19 Diclofenac 1% gen 2g bid prn-10/02/23 Flonase 50mcg 1 spray bid prn-10/28/20 Tadaliafil 20mg prn-06/12/20
[2024-06-26] MEDS: budesonide 0.5 mg/2 mL Neb INHALATION ×2 (08:50→20:08)
[2024-06-26 09:11] LABS: Urine Creatinine 255 mg/dL (39-259)
[2024-06-26 09:16] LABS: Urine Random Sodium 17 mmol/L
[2024-06-26 09:33] LABS: Estmated Average Glucose 143; Hemoglobin A1C 6.6 % (4.0-6.0)
--- NOTE | 2024-06-26 09:33 | CT_ITS ---
WS: [id number] CT CHEST, ABDOMEN AND PELVIS WITHOUT CONTRAST HISTORY: pna, resp failure, abd distension, renal failure TECHNIQUE: Contiguous 5 mm axial imaging performed through the chest, abdomen and pelvis without IV contrast, oral contrast has not been provided. Coronal and sagittal reformats chest. Coronal and sagittal reformats through the abdomen and pelvis. All CT scans at [facility] use at least one of these dose optimization techniques: automated exposure control; mA and/or kV adjustment per patient size (includes targeted exams where dose is matched to clinical indication); or iterative reconstruction. CONTRAST: None DLP: 1787.27 mGy.cm COMPARISON: 05/25/2020 Study compromised by patient's body habitus. Arms are placed at patients side during scanning causing significant artifact. Chest CT: Endotracheal tube and nasogastric tube are in good position. There is also a RIGHT central line which terminates near the brachiocephalic jugular vein junction. Dense bilateral lower lobe consolidations with air bronchograms consistent with pneumonia. Mild diffuse interstitial edema. No significant pleural or pericardial effusions. Heart is enlarged. Marked cardiomegaly. Atherosclerosis aorta. Normal size pulmonary artery. No adenopathy. Scattered pericardial calcifications. Abdomen CT: Mild hepatomegaly. Surface of the liver is slightly nodular suggesting cirrhosis. Cholelithiasis in a normally distended gallbladder. Splenomegaly, 17.1 cm in length. Negative pancreas and adrenal glands. Bilateral renal masses. Some of these masses are cysts and others are of increased att enuation which may be hemorrhagic/increased protein content. Moderate atrophy of the RIGHT kidney. Nonobstructing 1.2 cm calcification in the lower pole. No obstruction of either kidney. Mild atherosclerosis aorta. No GI tract obstruction. No free air or ascites. No adenopathy. Pelvic CT: Artifact of the pelvis secondary to LEFT hip arthroplasty. Mukherjee catheter present. Prior lumbar fusion hardware. Advanced hypertrophic osteophytes in the visualized lumbar and thoracic spines. Prior cervical thoracic spine fusion. CT/[place] [id number] IMPRESSION: 1. Dense pulmonary consolidation in the lower lung riddle consistent with pneu monia. 2. Marked cardiomegaly with pericardial calcifications. 3. Satisfactory position of nasogastric and endotracheal tubes. 4. RIGHT central line terminates at the junction of the brachiocephalic vein a nd the internal jugular vein. 5. Hepatosplenomegaly. Liver appears cirrhotic. 6. Cholelithiasis without acute cholecystitis. 7. Patient has known bilateral renal masses. Some of these are cystic in appea hanna and others are up increased attenuation suggesting increased protein cont ent. Cannot characterize renal masses further.
[2024-06-26] MEDS: vancomycin 3,000 MG/600 ML PIGGYBACK 200 MG IV (09:35)
[2024-06-26] MEDS: methylPREDNISolone sod succ 125 mg/2 mL INJ IVP (09:35)
[2024-06-26] MEDS: metOLazone 5 MG Tablet 10 MG PO (09:35)
[2024-06-26] MEDS: docusate sodium 100 mg Capsule 200 MG PO (09:35)
[2024-06-26 09:41] LABS: Iron 32 ug/dL (59-158); Percent Saturation 10.8 % (20-50); Total Iron Binding Capacity 295 mcg/dl; Unsaturated Iron Binding 263 ug/dL (112-347)
[2024-06-26 09:56] LABS: Procalcitonin 0.36 ng/mL (0-0.5); Vitamin B12 458 pg/mL (232-1245)
[2024-06-26] MEDS: FUROsemide 10 mg/mL SDV 10mL 60 MG IVP ×2 (10:09→22:12)
[2024-06-26] MEDS: fentaNYL 1,000 MCG/100 ML BAG 7.5 MCG IV ×2 (10:19→23:43)
[2024-06-26 10:20] LABS: Basophils % 0.3 %; Eosinophils % 0.1 %; Hematocrit 50.1 % (37-53); Mean Corpuscular HGB Conc 28.9 g/dL (30-55); Mean Corpuscular Hemoglobin 27.3 pg (27-33); Mean Corpuscular Volume 94.2 fl (82-101); Mean Platelet Volume 9.6 fL (7.4-10.4); Monocytes # 0.4 10^3/uL (0.2-0.9); Monocytes % 4.7 %; Neutrophils # 5.87 10^3/uL (1.8-7.7); Neutrophils % 79.7 %; Nucleated Red Blood Cells # 0.1 /100WBC; Nucleated Red Blood Cells % 1.5 %; Platelet Count 182 10^3/cmm (157-399); Red Blood Count 5.32 10^6/uL (3.85-5.65); Red Cell Distribution Width 19.9 % (12.1-15.1); White Blood Count 7.37 10^3/uL (3.29-11.43)
[2024-06-26 10:40] LABS: D Dimer 2.47 ug/mLFEU (0-0.59)
--- NOTE | 2024-06-26 10:54 | PC.NURSE ---
0945 -- Dr. Truong to bedside, attempted to advance central line with guide wire using sterile technique. Unable to advance guide wire through central line due to resistance. No changes made to central line. Will continue to use as a peripheral IV until other access is obtained.
--- NOTE | 2024-06-26 11:19 | XR_ITS ---
WS: [id number] Exam: XR chest 1V portable [id number] Date/Time of Exam: 06/26/2024 11:48 AM Reason For Exam: Post PICC insertion Comparison with previous study on the same day at 8:56 a.m. A left-sided PICC line has been placed and appears to end in the expected region of the lower one third of the SVC. Again noted are bilateral infiltrates and cardiac enlargement with pulmonary vascular congestion. An enteric tube extends below the diaphragm. ET tube appears to have been removed. XR/XR chest 1V portable [id number] IMPRESSION: 1. Left-sided PICC line ending in the expected region of the lower one third of the SVC. No other significant change in the appearance of the chest. ET tube n ot visualized.
--- NOTE | 2024-06-26 13:01 | PHA.VACGOAL ---
Vancomycin Goal - Goal Vancomycin Goal:: 15-20 mg/L Vancomycin Indication:: Pneumonia - Therapy Day of therpy:: Day []of [] . Actual body weight (kg): 383 lb - Data Labs: WBC 7.37 10^3/uL (3.29-11.43) 06/26/24 10:03 RBC 5.32 10^6/uL (3.85-5.65) 06/26/24 10:03 Hgb 14.50 g/dL (11.27-16.99) 06/26/24 10:03 Hct 50.1 % (37-53) 06/26/24 10:03 MCV 94.2 fl (82-101) 06/26/24 10:03 MCH 27.3 pg (27-33) 06/26/24 10:03 MCHC 28.9 g/dL (30-55) L 06/26/24 10:03 RDW 19.9 % (12.1-15.1) H 06/26/24 10:03 Sodium 140 mmol/L (136-145) 06/26/24 02:56 Potassium 5.0 mmol/L (3.5-5.1) 06/26/24 02:56 Chloride 96 mmol/L (98-107) L 06/26/24 02:56 Carbon Dioxide 32 mmol/L (22-29) H 06/26/24 02:56 Anion Gap 17.0 (5-19) 06/26/24 02:56 BUN 47 mg/dL (8-23) H 06/26/24 02:56 Creatinine 2.4 mg/dL (0.7-1.2) H 06/26/24 02:56 GFR Calculation 27.5 mL/min (90-130) L 06/26/24 02:56 Treatment plan:: new consult Regimen:: 3000 MG LOAD AND 2000 MG Q12H
--- NOTE | 2024-06-26 13:07 | P.PN_ITS ---
Subjective 2 Subjective: Admitted overnight. On examination patient is on Versed of 3, fentanyl 50. Not on pressors. Morbidly obese. No OG tube in place. Right IJ central line seen coiled up on right hemithorax with suture in place, no hematoma clean surfaces. Currently patient is on ventilator settings with FiO2 of 80%, tidal volume of 500 with PEEP of 8. Moving all limbs Vitals/I&O/Wt Last Vital Signs Temp 97.7 F 06/26/24 12:00 Pulse 67 06/26/24 12:00 Resp 16 06/26/24 12:00 BP 124/73 06/26/24 12:00 Pulse Ox 90 06/26/24 12:00 O2 Del Method Mechanical Ventilation 06/26/24 12:00 O2 Flow Rate 80 06/26/24 08:50 FiO2 80 06/26/24 12:00 06/25/24 06/26/24 06/26/24 22:59 06:59 14:59 Intake Total 57.166 / 57.166 123.375 / 123.375 Output Total 1200 / 1200 Balance 57.166 / 57.166 -1200 / -1142.834 123.375 / 123.375 Weight last 48 hrs Weight 173.726 kg Weight 174.5 kg Weight 151.046 kg Physical Exam 2 Narrative: General: Intubated, sedated, morbidly obese, disheveled HEENT: PERRLA, pupils bilaterally equal and reactive Chest: Bilateral bronchial breath sounds all over lung riddle with occasional rhonchi coarse crackles present bilaterally right more than left, fine crackles present up to mid chest bilaterally posterior more than anterior CVS: S1-S2 regular, no murmurs, no tachycardia, no gallops, no rubs Abdomen: Soft, nontender, no organomegaly, bowel sounds present Neuro: Intubated, moving all limbs Urinary Catheter Management: Mukherjee: Cath Placed During This Visit: yes Reason for Continuing Indwelling Catheter: Accurate Measurement of Urinary Output in Critically Ill Patients Urinary Catheter Date of Insertion: 06/25/24 Data 06/26/24 10:03 06/26/24 02:56 Micro: Microbiology 06/25/24 18:40 Gram Stain - Final Sputum - Endotracheal Tube Aspirate 06/26/24 08:15 Bacterial Antigens - Final Urine Kidney 06/25/24 19:12 Blood Culture - Preliminary Blood SPECIMEN COLLECTED 06/25/24 17:40 Blood Culture - Preliminary Blood SPECIMEN COLLECTED A&P Assessment and plan (1) Acute respiratory failure with hypoxia and hypercapnia: (2) Acute exacerbation of CHF (congestive heart failure): (3) Acute kidney injury superimposed on stage 3b chronic kidney disease: (4) COPD exacerbation: (5) Class 3 obesity with alveolar hypoventilation and body mass index (BMI) of 40.0 to 44.9 in adult: (6) Diastolic congestive heart failure, NYHA class 3: (7) Progressive pulmonary hypertension: (8) Aortic stenosis: (9) History of coronary angioplasty with insertion of stent: (10) Chronic respiratory failure with hypoxia and hypercapnia: (11) ETOH abuse: (12) Alcohol use disorder: Plan Perry Norman is a 63 yo man w/ CKDIIIB, w/COPD, chronic hypoxic respiratory failure on 5L NC, CHF, who was brought to the ED on 06/25/2024, via EMS, for increased dyspnea and increasing O2 requirement and was intubated for acute on chronic hypoxic hypercapneic respiratory failure. Intubated in the ER. Daily ABG, chest x-ray. Sedation with fentanyl and Versed. /NG tube not placed. Will reattempt. Appreciate chest x-ray showing need for advancing the ET tube. Will repeat chest x-ray before advancing to confirm placement. Appreciate right subclavian central line terminating at brachiocephalic vein and internal jugular vein junction. Tried advancing through the guidewire though guidewire not able to be advanced. Plan for PICC line placement. After placement can discontinue the right subclavian central line. Acute on chronic hypoxic and hypercapnic respiratory failure: In setting of diastolic congestive heart failure exacerbation, obstructive sleep apnea, COPD with concerns for pneumonia. History of MRSA positive sputum culture. On review of chart patient has COPD and restrictive lung disease because of morbid obesity. He was prescribed home vent which he refused late last year. Intubated on 06/25. Oxygen supplementation keeping saturation over 88%. Start on Solu-Medrol 125 mg one-time followed by 40 mg every 6 hourly. Pulmicort twice daily, DuoNeb every 4 hours. Check sputum culture, follow-up blood culture. Check urinalysis, urine culture, bacterial urine antigen. Given history of MRSA pneumonia in the past had IV vancomycin. Continue with IV Zosyn. Add azithromycin for atypical coverage. Antibiotics as per creatinine clearance. Aggressive IV diuresis. Start on 60 mg every 12 hourly IV Lasix. Metolazone 10 mg oral daily. Strict input output charting, daily weights. Appreciate last echocardiogram. Currently echocardiogram results pending. Continue sedation with IV fentanyl and Versed. Daily ABG, chest x-ray. AUBREY on CKD: Creatinine 1.7-2.2. Currently 2.4. Medical reconciliation done for nephrotoxic drugs. Strict input output charting, daily weights. Stat CT chest abdomen pelvis for further evaluation. Rule out obstructive nephropathy. Hypertension: Required Levophed on presentation to the ER. Currently off pressors. Goal blood pressure 140/90 mmHg with mean over 65. On multiple antihypertensive at home. Hold off on antihypertensive for now. Continue to monitor. History of alcohol abuse. Call the lab to confirm if alcohol level and urine drug screen can be added to the samples in the lab from admission. Stage II ulcer on the planter aspect of the L. foot (below the 5th metatarsal) - F/u wound care clinic instructions. Anesthesia: Versed, fentanyl Glycemic control: Not needed. Check A1c if elevated will start on insulin sliding scale. Nutrition: N.p.o. CODE STATUS: Full code PUD prophylaxis: Protonix DVT prophylaxis: Given morbid obesity for now we will change to Lovenox 40 mg subcu every 12 hourly. Discharge planning: Depending on the clinical improvement going forward. Continue with care at ICU This documentation was created by [employer] manual control auger press operator software. Every effort was made to ensure accuracy of manual control auger press operator. Any obvious errors or omissions should be clarified with the author of the document. PDMP PDMP Reviewed: Not Reviewed Attestations 2 Medical Necessity Statement*: Requires further hospitalization for management of respiratory failure due to COPD, 50 sleep apnea, diastolic heart failure, pneumonia as patient remains mechanically ventilated, CKD Critical Care Time: The high probability of a clinically significant, sudden or life threatening deterioration of the patient's [pulmonary, cardiac, renal] system(s) required my full and direct attention, intervention and personal management. The critical care time is as shown. This time is in addition to time spent performing any reported procedures but includes the following: [x] Data and vital sign review and interpretation [x] Patient assessment, examination and intervention [x] Documentation [x] Medication orders and management Critical Care Time (min): 90 Procedures Central Line Placement^ Prior to repositioning right IJ which was placed overnight as seen at the junction of brachiocephalic and right internal jugular: Time out performed: Yes Patient placed on monitor/pulse ox: Yes MD prep: mask and gloves Central line prep: Povidone-Iodine 1% and Chlorhexidine scrub Local anesthesia used: other anesthetic Ultrasound used for placement: No Central line lumen inserted: triple Post procedure: sutured in place, good blood return, all ports aspirated, flushed, capped and sterile dressing applied Post procedure x-ray: tip of catheter in good position (Could not be replaced as guidewire cannot be advanced. Continues to remain at the junction of brachiocephalic and internal jugular) and no pneumothorax seen Patient tolerated procedure: well and no complications Complications: none Coding Level of Care Code Critical Care >/= 30 minutes Critical care time (in minutes): 90 The high probability of a clinically significant, sudden or life threatening deterioration, as referenced in this documentation, required my full and direct attention, intervention and personal management. The critical care time shown is in addition to time spent performing any reported separately billable procedures and includes the following: [x] Data and vital sign review and interpretation [x ] Patient assessment, examination and intervention [x] Medication orders and management [x] Patient/Family updates as able [x] Care Coordination and Documentation. Other Coding Information This patient has a high probability of clinically significant, sudden or life threatening deterioration of the patient's (neurological/pulmonary/cardiac/renal/ID/endocrine) systems required my full, direct attention, the highest level of physician preparedness for urgent intervention and personal management. I managed/supervised life or organ supporting interventions that required frequent physician assessment. I devoted my full attention in the ICU to the direct care of this patient for the period of time indicated above. Time I spent with family or surrogate(s) is included only if the patient was incapable of providing necessary information or participating in decision making. This time includes the following services provided: Telemetry review Mechanical Ventilation Hemodynamic interpretation, assessment and management Review and interpretation of CXR Review and interpretation of lab values Review and interpretation of microbiologic data and culture results Review of medications and administration Review and interpretation of Nutrition requirements and management Discussion of management with other consultants and services Clinical update to family members Diagnoses Acute respiratory failure with hypoxia and hypercapnia J96.01; J96.02 Acute exacerbation of CHF (congestive heart failure) I50.9 Acute kidney injury superimposed on stage 3b chronic kidney disease N17.9; N18.32 COPD exacerbation J44.1 Class 3 obesity with alveolar hypoventilation, serious comorbidity, and body mass index (BMI) of 40.0 to 44.9 in adult E66.2; Z68.41 Serious obesity comorbidity presence: with serious comorbidity Chronic diastolic congestive heart failure, NYHA class 3 I50.32 Congestive heart failure chronicity: chronic Progressive pulmonary hypertension I27.20 Nonrheumatic aortic valve stenosis I35.0 History of coronary angioplasty with insertion of stent Z95.5 Chronic respiratory failure with hypoxia and hypercapnia J96.11; J96.12 ETOH abuse F10.10 Alcohol use disorder F10.90
--- NOTE | 2024-06-26 13:19 | PICC.NOTE ---
Triple lumen PICC placed to left basilic vein. Referred to vascular access nurse for PICC placement due to provider request. Risks and benefits discussed and informed consent obtained from pt sister via phone. Left arm assessed with left basilic vein measuring 6.8 mm, straight, and apparent best choice for placement. Using sterile technique and MST, left basilic vein accessed x 1 stick. Mid-arm circumference measured 10 cm from left AC 36 cm. Trimmed cath 49 cm with 0 cm external length noted. CXR shows tip in distal SVC, in good position for use per radiologist. Line secured with stat-lock. Insertion site covered with Biopatch and TSM. Report given to bedside nurse, GONZALEZ Pérez.
[2024-06-26] MEDS: methylPREDNISolone sod succ 40 mg/mL INJ IVP ×2 (13:46→19:59)
[2024-06-26 14:03] LABS: Glucose Point of Care 118 mg/dL (70-110)
[2024-06-26] MEDS: AZITHROMYCIN ADD-Vantage 500 MG in 0.9% NaCl ADD-Vantage 250 ML 250 MG IV (14:07)
[2024-06-26] MEDS: midazolam hcl 100 MG/100 ML BAG IV (15:16)
[2024-06-26 15:32] LABS: Amphetamines Screen Urine Negative (Negative); Barbiturates Screen Urine Negative (Negative); Benzodiazepines Screen Urine Positive (Negative); Cocaine Screen Urine Negative (Negative); Opiate Screen Urine Negative (Negative); PCP Screen Urine Negative (Negative); THC Screen Urine Negative (Negative)
--- NOTE | 2024-06-26 15:36 | PC.NURSE ---
Right SC central line discontinued as ordered. Pressure applied x 5 minutes, no bleeding noted. 4x4 and Clear occlusive dressing applied.
[2024-06-26 16:33] LABS: Anion Gap 19.5 (5-19); Blood Urea Nitrogen 50 mg/dL (8-23); Carbon Dioxide 32 mmol/L (22-29); Chloride 96 mmol/L (98-107); Creatinine Clr Calc Pharmacy 51.7123; Glomerular Filtration Rate 27.5 mL/min (90-130); Glucose 143 mg/dL (65-115); Osmolality Calculated 312 mOsm/kg (285-295); Potassium 4.5 mmol/L (3.5-5.1); Sodium 143 mmol/L (136-145)
[2024-06-26 16:42] LABS: Alcohol Level < 10 mg/dL (0-10)
[2024-06-26] MEDS: enoxaparin 40 mg/0.4 mL Syringe SUBCUT (17:48)
[2024-06-26] MEDS: sennosides 8.6 mg Tablet 17.2 MG PO (20:00)
[2024-06-26] MEDS: vancomycin 2,000 MG/400 ML PIGGYBACK 200 MG IV (20:01)
--- NOTE | 2024-06-26 20:03 | USCV_ITS ---
Transthoracic Echo w Contrast Perry Norman Age: 63 Gender: M : 1960 Exam Date: 06/26/2024 00:35 Ordering Phys: Kelly White MD Technologist: KAL Exam Location: [facility] [place] Indication: Acute congestive heart failure, hypoxia in 70s, LEFT pleural effusion, on ventilator in ICU-3. BP: 124 / 72 HR: 64 Rhythm: Sinus Technical Quality: Adequate with [employer] MEASUREMENTS (Male / Female) Normal Values 2D ECHO LV Diastolic Diameter PLAX 4.3 cm 4.2 - 5.9 / 3.9 - 5.3 cm IVS Diastolic Thickness 1.5 cm 0.6 - 1.0 / 0.6 - 0.9 cm IVS Systolic Thickness 1.8 cm LVPW Diastolic Thickness 1.6 cm 0.6 - 1.0 / 0.6 - 0.9 cm LVPW Systolic Thickness 2.5 cm LVOT Diameter 2.3 cm LV Ejection Fraction 2D Teich 55.8 % LV Ejection Fraction MOD 4C 46.1 % LV Ejection Fraction MOD 2C 53.1 % LV Ejection Fraction 2C AL 52.8 % LA Diameter 4.2 cm Aorta at Sinotubular Diameter 2.7 cm IVC Diameter 2.9 cm M-MODE LA Ao Ratio MM 1.6 AV Cusp Separation MM 1.4 cm DOPPLER AV Peak Velocity 313.0 cm/s LVOT Peak Velocity 85.0 cm/s AV Area Cont Eq vti 1.1 cm squared AV Area Cont Eq pk 1.1 cm squared MV Peak Velocity 121.0 cm/s MV Area PHT 3.7 cm squared Mitral E to A Ratio 1.2 TR Peak Velocity 204.0 cm/s TR Peak Gradient 16.6 mmHg TV Peak E Velocity 72.0 cm/s PV Peak Velocity 101.0 cm/s FINDINGS Left Ventricle Normal left ventricular cavity size. Low Normal left ventricular systolic function. Left ventricular ejection fraction is estimated at 50-55 %. Grade II/IV diastolic dysfunction, moderately elevated filling pressures. Right Ventricle The right ventricle is normal in size and function. Right Atrium The right atrium is normal in size. Left Atrium Moderately increased left atrial size. Mitral Valve Moderately thickened mitral valve. Mild mitral annular calcification. No mitral valve stenosis. Trace mitral valve regurgitation. Aortic Valve Moderate aortic valve calcification. Moderate aortic valve stenosis, mean gradient 18.5 mmHg, MARISEL 1.1 cm squared. Trace aortic valve regurgitation. Tricuspid Valve Trace tricuspid valve regurgitation. Pulmonic Valve Structurally normal pulmonic valve without significant stenosis. There is no pulmonic regurgitation. Pericardium Normal pericardium without effusion. Aorta Normal ascending aorta dimension. IVC Dilated IVC with decreased respiratory variation. CONCLUSIONS Normal left ventricular cavity size. Low Normal left ventricular systolic function. Left ventricular ejection fraction is estimated at 50-55 %. Grade II/IV diastolic dysfunction, moderately elevated filling pressures. Moderate aortic valve calcification. Moderate aortic valve stenosis, mean gradient 18.5 mmHg, MARISEL 1.1 cm squared. Trace aortic valve regurgitation. Moderately thickened mitral valve. Mild mitral annular calcification. No mitral valve stenosis. Trace mitral valve regurgitation. There is no pericardial effusion. Right atrial pressure is around 20 mm of mercury. Alfred Aden MD (Electronically Signed) Final Date: 26 Jun 2024 14:13 S
[2024-06-26 20:21] LABS: Glucose Point of Care 150 mg/dL (70-110)
--- NOTE | 2024-06-26 23:03 | US_ITS ---
WS: [id number] RENAL ULTRASOUND HISTORY: AUBREY on CKDIIIB, vol overload COMPARISON: 02/16/2022, CT 07/29/2021 TECHNIQUE: 2-D and color Doppler imaging of the kidney submitted. Right kidney: 12.2 cm x 5.9 cm x 6.4 cm. Cortex: 1.5 cm Normal size kidney with multiple cortical cysts. RIGHT kidney is difficult to visualize. It does appear to be cortical thinning. No hydronephrosis. Kidney size is normal but this is due to enlargement as several cysts are included. Mild renal atrophy was noted on a prior CT from 2021. Left kidney: 14.7 cm x 6.7 cm x 7.3 cm. Cortex: 1.7 cm Multiple cysts associated with the LEFT kidney. There is mild cortical thinning. No hydronephrosis. Largest cyst in the mid kidney measures 6.5 x 5.6 cm. Aorta: Not well visualized. Urinary Bladder: Nondistended. US/US renal BI* [id number] IMPRESSION: 1. Difficult evaluation of the kidneys due to patient's body habitus. 2. Multiple bilateral cortical cysts have been previously described. No solid mass or renal obstruction is identified although study is limited. 3. RIGHT renal atrophy has been noted on a prior CT.
[2024-06-27] VITALS (36 sets, daily range): BP systolic 115–178; BP diastolic 57–97; PULSE 64–81; RESP 16; TEMP 36.6–36.9; O2SAT 87–91
[2024-06-27] MEDS: ipratropium-albuterol 3 mL Neb INHALATION ×6 (00:05→20:45)
[2024-06-27] MEDS: methylPREDNISolone sod succ 40 mg/mL INJ IVP ×4 (02:29→19:44)
[2024-06-27 02:51] LABS: Glucose Point of Care 152 mg/dL (70-110)
[2024-06-27] MEDS: insulin lispro 100 unit/1 mL SUBCUT ×4 (02:51→19:45)
[2024-06-27 04:20] LABS: ABG PH Result 7.43 (7.35-7.45); Alveolar-Arterial Oxygen Gradi 55.8 mmHg (5-10); Base Excess ABG 13.5 mmol/L (-2.0-2.0); Blood Gas Operator Identificat JDB; Blood Gas Sample Type Arterial; Carboxyhemoglobin 0.6 %THgb (0.4-20.1); HCO3 ABG 41.1 mmol/L (22-26); HGB O2 Sat 88.3 % (95-100); Ionized Calcium Level - ABG 1.2 mmol/L (1.1-1.4); Oxygen Device VENT; Oxygen Saturation ABG 88.8; PO2 ABG 59.9 mmHg (80.0-100.0); PO2 FiO2 Ratio Arterial Blood 74; Potassium Level - ABG 3.8 mmol/L (3.5-5.0); Total Hemoglobin 15.3 g/dL (14-18)
[2024-06-27 04:21] LABS: ABG PCO2 61.5 mmHg (35-45)
[2024-06-27 04:22] LABS: Blood Gas Sample Site Brachial, right
[2024-06-27 05:14] LABS: Basophils % 0.1 %; Hematocrit 52.3 % (37-53); Lymphocytes # 1.2 10^3/uL (0.8-4.8); Lymphocytes % 11.4 %; Mean Corpuscular HGB Conc 28.9 g/dL (30-55); Mean Corpuscular Hemoglobin 27.1 pg (27-33); Mean Corpuscular Volume 93.9 fl (82-101); Mean Platelet Volume 9.1 fL (7.4-10.4); Monocytes # 0.3 10^3/uL (0.2-0.9); Monocytes % 3.2 %; Neutrophils # 8.54 10^3/uL (1.8-7.7); Neutrophils % 84.6 %; Nucleated Red Blood Cells % 0.3 %; Platelet Count 201 10^3/cmm (157-399); Red Blood Count 5.57 10^6/uL (3.85-5.65); Red Cell Distribution Width 20.1 % (12.1-15.1); White Blood Count 10.09 10^3/uL (3.29-11.43)
[2024-06-27 05:39] LABS: Cholesterol 170 mg/dL (0-200); HDL Cholesterol 27 mg/dL (60-100); LDL Cholesterol Calculated 104 mg/dL (50-129); Magnesium 2.3 mg/dL (1.7-2.3); Triglycerides 195 mg/dL (0-150); VLDL Cholestrol Calculation 39 mg/dL (0-30)
[2024-06-27 05:42] LABS: Alanine Aminotransferase 8 U/L (0-41); Albumin Level 3.8 g/dL (3.5-5.2); Alkaline Phosphatase 129 U/L (40-130); Anion Gap 18.2 (5-19); Aspartate Amino Transferase 10 U/L (0-40); Blood Urea Nitrogen 57 mg/dL (8-23); Calcium 9.5 mg/dL (8.5-10.5); Carbon Dioxide 37 mmol/L (22-29); Chloride 94 mmol/L (98-107); Creatinine Clr Calc Pharmacy 47.0628; Globulin 2.9 g/dL (1.3-4.6); Glomerular Filtration Rate 25.1 mL/min (90-130); Glucose 167 mg/dL (65-115); Osmolality Calculated 320 mOsm/kg (285-295); Potassium 4.2 mmol/L (3.5-5.1); Sodium 145 mmol/L (136-145); Total Bilirubin 0.5 mg/dL (0.15-1.2); Total Protein 6.7 g/dL (6.6-8.7)
[2024-06-27 05:50] LABS: Folate Level 7.9 ng/mL (4.5-32.2)
--- NOTE | 2024-06-27 06:00 | XRR_ITS ---
PROCEDURE INFORMATION: Exam: XR Chest Exam date and time: 06/27/2024 7:09 AM Age: 63 years old Clinical indication: Device placement; Ett placement (vent status); Additional info: [facility] vent TECHNIQUE: Imaging protocol: Radiologic exam of the chest. Views: 1 view. COMPARISON: CR XR chest 1V portable [id number] 06/26/2024 11:53 AM FINDINGS: Tubes, catheters and devices: The endotracheal tube is poorly seen due to metal within the neck and upper chest. It terminates above the andres. Gastric tube terminates in the stomach. Stable left PICC line. Lungs: Bilateral lower lobe opacities, effusion plus infiltrates. This appears to due to CHF. Pleural spaces: Unremarkable. No pleural effusion. No pneumothorax. Heart/Mediastinum: Unremarkable. No cardiomegaly. Bones/joints: Unremarkable. Other findings: Impressions: Persistent CHF. XR/XR chest 1V portable [id number] IMPRESSION: No acute findings.
[2024-06-27] MEDS: piperacillin-tazobactam 3.375 GM in sodium chloride 0.9% (plus) 50 ML IV ×3 (06:10→22:23)
[2024-06-27] MEDS: pantoprazole 40 mg SDV IVP (06:11)
[2024-06-27] MEDS: enoxaparin 40 mg/0.4 mL Syringe SUBCUT ×2 (06:11→17:57)
[2024-06-27] MEDS: budesonide 0.5 mg/2 mL Neb INHALATION ×2 (07:31→20:45)
[2024-06-27 08:11] LABS: Glucose Point of Care 154 mg/dL (70-110)
[2024-06-27 09:04] LABS: Vancomycin Random 27.1 ug/mL (20.0-40.0)
[2024-06-27] MEDS: thiamine 100 mg/mL 2mL SDV IVP (09:21)
[2024-06-27] MEDS: docusate sodium 100 mg Capsule 200 MG PO (09:21)
[2024-06-27] MEDS: FUROsemide 10 mg/mL SDV 10mL 60 MG IVP ×2 (09:22→22:23)
[2024-06-27] MEDS: metOLazone 5 MG Tablet 10 MG PO (09:22)
[2024-06-27] MEDS: vancomycin 2,000 MG/400 ML PIGGYBACK 200 MG IV (09:22)
[2024-06-27 10:38] LABS: Basophils % 0.1 %; Hematocrit 50.6 % (37-53); Lymphocytes # 1.2 10^3/uL (0.8-4.8); Lymphocytes % 10.8 %; Mean Corpuscular HGB Conc 29.2 g/dL (30-55); Mean Corpuscular Hemoglobin 27.1 pg (27-33); Mean Corpuscular Volume 92.5 fl (82-101); Mean Platelet Volume 9.5 fL (7.4-10.4); Monocytes # 0.4 10^3/uL (0.2-0.9); Neutrophils % 84.5 %; Nucleated Red Blood Cells % 0 %; Platelet Count 198 10^3/cmm (157-399); Red Blood Count 5.47 10^6/uL (3.85-5.65); Red Cell Distribution Width 19.9 % (12.1-15.1); White Blood Count 10.77 10^3/uL (3.29-11.43)
[2024-06-27 11:12] LABS: ABG PCO2 59.2 mmHg (35-45); ABG PH Result 7.45 (7.35-7.45); Alveolar-Arterial Oxygen Gradi 56.3 mmHg (5-10); Arterial Blood Gas Hematocrit 47.7 % (42-52); Base Excess ABG 13.7 mmol/L (-2.0-2.0); Blood Gas Operator Identificat BROMA; Blood Gas Sample Site Brachial, right; Blood Gas Sample Type Arterial; Blood Gas Tidal Volume 0.55; Carboxyhemoglobin 0.5 %THgb (0.4-20.1); HCO3 ABG 40.9 mmol/L (22-26); HGB O2 Sat 88.7 % (95-100); Ionized Calcium Level - ABG 1.2 mmol/L (1.1-1.4); Oxygen Device VENT; Oxygen Saturation ABG 89.1; PO2 ABG 59.5 mmHg (80.0-100.0); PO2 FiO2 Ratio Arterial Blood 74; Potassium Level - ABG 3.7 mmol/L (3.5-5.0); Total Hemoglobin 15.6 g/dL (14-18)
--- NOTE | 2024-06-27 12:14 | P.PN_ITS ---
Subjective 2 Subjective: No acute events overnight. Patient has remained hemodynamically stable and afebrile. Urine output appreciated. Overnight oxygen saturations have remained over 90% but still requiring up to 80% of FiO2, tidal volume of 500. Remains on 5 of Versed, 75 of fentanyl. Vitals/I&O/Wt Last Vital Signs Temp 98.0 F 06/27/24 08:00 Pulse 70 06/27/24 10:00 Resp 16 06/27/24 10:00 BP 177/94 06/27/24 10:00 Pulse Ox 91 06/27/24 10:00 O2 Del Method Mechanical Ventilation 06/27/24 10:00 O2 Flow Rate 80 06/26/24 08:50 FiO2 80 06/27/24 10:00 06/26/24 06/27/24 06/27/24 22:59 06:59 14:59 Intake Total 860.800 / 1584.175 150 / 1734.175 450 / 450 Output Total 3600 / 3600 1400 / 5000 Balance -2739.200 / -2015.825 -1250 / -3265.825 450 / 450 Weight last 48 hrs Weight 169.644 kg Weight 173.726 kg Weight 174.5 kg Weight 151.046 kg Physical Exam 2 Narrative: General: Intubated, sedated, morbidly obese, disheveled HEENT: PERRLA, pupils bilaterally equal and reactive Chest: Bilateral bronchial breath sounds all over lung riddle with occasional rhonchi coarse crackles present bilaterally right more than left, fine crackles present up to mid chest bilaterally posterior more than anterior CVS: S1-S2 regular, no murmurs, no tachycardia, no gallops, no rubs Abdomen: Soft, nontender, no organomegaly, bowel sounds present Neuro: Intubated, moving all limbs Urinary Catheter Management: Mukherjee: Cath Placed During This Visit: yes Reason for Continuing Indwelling Catheter: Accurate Measurement of Urinary Output in Critically Ill Patients Urinary Catheter Date of Insertion: 06/25/24 Data 06/27/24 10:20 06/27/24 04:45 Micro: Microbiology 06/25/24 18:40 Gram Stain - Final Sputum - Endotracheal Tube Aspirate Sputum Culture - Preliminary Coag positive Staphylococcus 06/25/24 19:44 Urine Culture - Preliminary Urine,Clean Catch Strep species, gamma-hemolytic 06/25/24 19:12 Blood Culture - Preliminary Blood NEGATIVE TO DATE 06/25/24 17:40 Blood Culture - Preliminary Blood NEGATIVE TO DATE 06/26/24 08:15 Bacterial Antigens - Final Urine Kidney A&P Assessment and plan (1) Acute respiratory failure with hypoxia and hypercapnia: (2) Acute exacerbation of CHF (congestive heart failure): (3) Acute kidney injury superimposed on stage 3b chronic kidney disease: (4) COPD exacerbation: (5) Class 3 obesity with alveolar hypoventilation and body mass index (BMI) of 40.0 to 44.9 in adult: (6) Diastolic congestive heart failure, NYHA class 3: (7) Progressive pulmonary hypertension: (8) Aortic stenosis: (9) History of coronary angioplasty with insertion of stent: (10) Chronic respiratory failure with hypoxia and hypercapnia: (11) ETOH abuse: (12) Alcohol use disorder: (13) Goals of care, counseling/discussion: Plan Perry Norman is a 63 yo man w/ CKDIIIB, w/COPD, chronic hypoxic respiratory failure on 5L NC, CHF, who was brought to the ED on 06/25/2024, via EMS, for increased dyspnea and increasing O2 requirement and was intubated for acute on chronic hypoxic hypercapneic respiratory failure. Intubated in the ER. Appreciate ABG. Still on 80% FiO2. Will plan to increase tidal volume to 550 and PEEP to 10. Repeat ABG in 2 hours. Daily ABG, chest x-ray. Continue sedation with fentanyl and Versed. PICC line placed. Right IJ central line removed. Acute on chronic hypoxic and hypercapnic respiratory failure: In setting of diastolic congestive heart failure exacerbation, obstructive sleep apnea, COPD with concerns for pneumonia. History of MRSA positive sputum culture. On review of chart patient has COPD and restrictive lung disease because of morbid obesity. He was prescribed home vent which he refused late last year. Intubated on 06/25. Sputum culture growing coag positive staph. Oxygen supplementation keeping saturation over 88%. Continue with 40 mg every 6 hourly. Pulmicort twice daily, DuoNeb every 4 hours. Follow-up sputum culture, blood culture, urine culture. Urine cultures so far growing, hemolytic strep. Negative bacterial urine antigen. Continue with IV vancomycin, Zosyn and azithromycin. Dose antibiotics as per creatinine clearance. Aggressive IV diuresis. Renal function slightly worsening today. Good urine response otherwise. Continue with IV Lasix 60 mg twice daily. Watch for contraction alkalosis, electrolyte abnormalities. Hold off on metolazone. Echocardiogram done EF 50 to 55% moderate to diastolic function, moderate aortic stenosis with gradient of 18.5 across the valve AUBREY on CKD: Creatinine 1.7-2.2. Continue to monitor renal functions every 12 hourly for now. Slight worsening with creatinine up to 2.6 today. Medical reconciliation done for nephrotoxic drugs. Strict input output charting, daily weights. Appreciate CT on pelvis with no obstructive nephropathy. Hypertension: Required Levophed on presentation to the ER. Currently off pressors. Goal blood pressure 140/90 mmHg with mean over 65. On multiple antihypertensive at home. Blood pressure slightly elevated today. Start on IV hydralazine 10 mg every 6 hour as needed for systolic of more than 160. If continues to remain elevated will start on home dose of oral hydralazine and uptitrate as per home medications. Continue to monitor. History of alcohol abuse. Alcohol level and urine drug screen from admission appreciated Stage II ulcer on the planter aspect of the L. foot (below the 5th metatarsal) - F/u wound care clinic instructions. Anesthesia: Versed, fentanyl Glycemic control: Not needed. Check A1c if elevated will start on insulin sliding scale. Nutrition: N.p.o. CODE STATUS: Full code PUD prophylaxis: Protonix DVT prophylaxis: Given morbid obesity for now we will change to Lovenox 40 mg subcu every 12 hourly. Discharge planning: Depending on the clinical improvement going forward. Continue with care at ICU Goals of care discussion: Discussed in detail with patient's DPOA/sister Ms. Mcleod. Discussed unfortunately patient has significant chronic respiratory failure due to COPD, chronic smoking, restrictive lung disease, severe obstructive sleep apnea, diastolic heart failure for which he has been advised by his accounting intern in the past about home vent. Discussed given severe comorbidities and significantly weak lungs from the past there is a high chance of prolonged intubation or patient being ventilator dependent going forward. Sister verbalizes understanding. States patient in the past has been noncompliant and continues to smoke. She verbalizes understanding that patient might develop ventilator dependence might require prolonged intubation or even tracheostomy. She states for now if if it comes to tracheostomy patient would not have been okay with the same. She does not think patient would want any resuscitative measures including chest compressions or repeat intubation. CODE STATUS for now will be changed to DNR/DNI. We did discuss that if he remains medically stable requiring mechanical ventilation for a prolonged. There is a possibility of transfer to long-term acute care facility where they can try to wean him off ventilator slowly. Sister verbalizes understanding. This documentation was created by [employer] sandwich artist software. Every effort was made to ensure accuracy of sandwich artist. Any obvious errors or omissions should be clarified with the author of the document. PDMP PDMP Reviewed: Not Reviewed Attestations 2 Medical Necessity Statement*: Requires further hospitalization for management of acute on chronic hypercapnic and hypoxic respiratory failure in setting of pneumonia, UTI, restrictive and obstructive lung disease, diastolic heart failure, struct of sleep apnea as patient remains ventilator dependent Critical Care Time: The high probability of a clinically significant, sudden or life threatening deterioration of the patient's [pulmonary, cardiac, renal] system(s) required my full and direct attention, intervention and personal management. The critical care time is as shown. This time is in addition to time spent performing any reported procedures but includes the following: [x] Data and vital sign review and interpretation [x] Patient assessment, examination and intervention [x] Documentation [x] Medication orders and management Critical Care Time (min): 80 Coding Level of Care Code Critical Care >/= 30 minutes Critical care time (in minutes): 80 The high probability of a clinically significant, sudden or life threatening deterioration, as referenced in this documentation, required my full and direct attention, intervention and personal management. The critical care time shown is in addition to time spent performing any reported separately billable procedures and includes the following: [x] Data and vital sign review and interpretation [x ] Patient assessment, examination and intervention [x] Medication orders and management [x] Patient/Family updates as able [x] Care Coordination and Documentation. Other Coding Information This patient has a high probability of clinically significant, sudden or life threatening deterioration of the patient's (neurological/pulmonary/cardiac/renal/ID/endocrine) systems required my full, direct attention, the highest level of physician preparedness for urgent intervention and personal management. I managed/supervised life or organ supporting interventions that required frequent physician assessment. I devoted my full attention in the ICU to the direct care of this patient for the period of time indicated above. Time I spent with family or surrogate(s) is included only if the patient was incapable of providing necessary information or participating in decision making. This time includes the following services provided: Telemetry review Mechanical Ventilation Hemodynamic interpretation, assessment and management Review and interpretation of CXR Review and interpretation of lab values Review and interpretation of microbiologic data and culture results Review of medications and administration Review and interpretation of Nutrition requirements and management Discussion of management with other consultants and services Clinical update to family members Diagnoses Acute respiratory failure with hypoxia and hypercapnia J96.01; J96.02 Acute exacerbation of CHF (congestive heart failure) I50.9 Acute kidney injury superimposed on stage 3b chronic kidney disease N17.9; N18.32 COPD exacerbation J44.1 Class 3 obesity with alveolar hypoventilation, serious comorbidity, and body mass index (BMI) of 40.0 to 44.9 in adult E66.2; Z68.41 Serious obesity comorbidity presence: with serious comorbidity Chronic diastolic congestive heart failure, NYHA class 3 I50.32 Congestive heart failure chronicity: chronic Progressive pulmonary hypertension I27.20 Nonrheumatic aortic valve stenosis I35.0 History of coronary angioplasty with insertion of stent Z95.5 Chronic respiratory failure with hypoxia and hypercapnia J96.11; J96.12 ETOH abuse F10.10 Alcohol use disorder F10.90 Goals of care, counseling/discussion Z71.89
[2024-06-27] MEDS: midazolam hcl 100 MG/100 ML BAG IV (12:17)
[2024-06-27] MEDS: fentaNYL 1,000 MCG/100 ML BAG 7.5 MCG IV (12:18)
[2024-06-27] MEDS: hyDRALAzine 20 mg/mL INJ 1 mL 10 MG IVP ×2 (12:29→19:44)
[2024-06-27] MEDS: AZITHROMYCIN ADD-Vantage 500 MG in 0.9% NaCl ADD-Vantage 250 ML 250 MG IV (14:44)
[2024-06-27] MEDS: BuSPIRONE 10 mg Tablet PO ×2 (14:51→22:22)
[2024-06-27 14:58] LABS: Glucose Point of Care 156 mg/dL (70-110)
[2024-06-27 17:01] LABS: ABG PCO2 55.3 mmHg (35-45); ABG PH Result 7.49 (7.35-7.45); Alveolar-Arterial Oxygen Gradi 57.2 mmHg (5-10); Arterial Blood Gas Hematocrit 48.3 % (42-52); Base Excess ABG 15.4 mmol/L (-2.0-2.0); Blood Gas Operator Identificat BROMA; Blood Gas Sample Site Brachial, right; Blood Gas Sample Type Arterial; Blood Gas Tidal Volume 0.55; Carboxyhemoglobin 0.4 %THgb (0.4-20.1); HCO3 ABG 41.9 mmol/L (22-26); HGB O2 Sat 88.7 % (95-100); Ionized Calcium Level - ABG 1.2 mmol/L (1.1-1.4); Methemoglobin < 0.0 % (0.4-1.5); Oxygen Device VENT; Oxygen Saturation ABG 88.6; PO2 ABG 57.1 mmHg (80.0-100.0); PO2 FiO2 Ratio Arterial Blood 71; Potassium Level - ABG 3.6 mmol/L (3.5-5.0); Total Hemoglobin 15.7 g/dL (14-18)
[2024-06-27 17:13] LABS: Anion Gap 17.8 (5-19); Blood Urea Nitrogen 61 mg/dL (8-23); Calcium 9.4 mg/dL (8.5-10.5); Carbon Dioxide 35 mmol/L (22-29); Chloride 94 mmol/L (98-107); Creatinine Clr Calc Pharmacy 53.2014; Glomerular Filtration Rate 28.9 mL/min (90-130); Glucose 155 mg/dL (65-115); Osmolality Calculated 316 mOsm/kg (285-295); Potassium 3.8 mmol/L (3.5-5.1); Sodium 143 mmol/L (136-145)
[2024-06-27] MEDS: tamsulosin 0.4 mg Capsule PO (17:57)
[2024-06-27] MEDS: gabapentin 300 mg Capsule PO (17:57)
[2024-06-27] MEDS: fentaNYL 1,000 MCG/100 ML BAG 15 MCG IV (19:39)
[2024-06-27 19:42] LABS: Glucose Point of Care 150 mg/dL (70-110)
[2024-06-27 20:26] LABS: Vancomycin Trough 28.6 ug/mL (10-15)
[2024-06-27] MEDS: sennosides 8.6 mg Tablet 17.2 MG PO (22:22)
[2024-06-28] VITALS (112 sets, daily range): BP systolic 133–170; BP diastolic 70–88; PULSE 0–99; RESP 12–18; TEMP 36.2–37.7; O2SAT 86–96
[2024-06-28] MEDS: ipratropium-albuterol 3 mL Neb INHALATION ×6 (00:29→19:56)
[2024-06-28] MEDS: fentaNYL 1,000 MCG/100 ML BAG 17.5 MCG IV ×2 (01:34→07:28)
[2024-06-28] MEDS: methylPREDNISolone sod succ 40 mg/mL INJ IVP ×4 (02:38→20:59)
[2024-06-28] MEDS: chlorhexidine gluconate 4% Btl 118 mL 1 APPLIC TOPICAL (02:38)
[2024-06-28] MEDS: insulin lispro 100 unit/1 mL SUBCUT ×4 (02:38→21:00)
[2024-06-28 02:44] LABS: Glucose Point of Care 164 mg/dL (70-110)
[2024-06-28] MEDS: midazolam hcl 100 MG/100 ML BAG 6 MG IV (03:37)
[2024-06-28] MEDS: hyDRALAzine 20 mg/mL INJ 1 mL 10 MG IVP (04:50)
[2024-06-28] MEDS: piperacillin-tazobactam 3.375 GM in sodium chloride 0.9% (plus) 50 ML IV ×3 (05:17→22:13)
[2024-06-28] MEDS: enoxaparin 40 mg/0.4 mL Syringe SUBCUT ×2 (05:22→17:37)
[2024-06-28] MEDS: pantoprazole 40 mg SDV IVP (05:22)
[2024-06-28 05:37] LABS: ABG PCO2 51.1 mmHg (35-45); ABG PH Result 7.54 (7.35-7.45); Alveolar-Arterial Oxygen Gradi 74.5 mmHg (5-10); Base Excess ABG 17.5 mmol/L (-2.0-2.0); Blood Gas Allen Test Pos; Blood Gas Operator Identificat SAM; Blood Gas Sample Site Radial, left; Blood Gas Sample Type Arterial; Blood Gas Tidal Volume 0.55; Carboxyhemoglobin 0.2 %THgb (0.4-20.1); HCO3 ABG 43.3 mmol/L (22-26); HGB O2 Sat 91.4 % (95-100); Ionized Calcium Level - ABG 1.2 mmol/L (1.1-1.4); Methemoglobin 0.7 % (0.4-1.5); Oxygen Device VENT; Oxygen Saturation ABG 92.1; PO2 ABG 70.4 mmHg (80.0-100.0); PO2 FiO2 Ratio Arterial Blood 70; Potassium Level - ABG 3.4 mmol/L (3.5-5.0); Total Hemoglobin 16.3 g/dL (14-18)
[2024-06-28 05:59] LABS: Basophils % 0.1 %; Hematocrit 51.5 % (37-53); Lymphocytes # 1.3 10^3/uL (0.8-4.8); Lymphocytes % 13.4 %; Mean Corpuscular HGB Conc 30.1 g/dL (30-55); Mean Corpuscular Hemoglobin 27.7 pg (27-33); Mean Platelet Volume 9.4 fL (7.4-10.4); Monocytes # 0.5 10^3/uL (0.2-0.9); Monocytes % 4.9 %; Neutrophils # 7.76 10^3/uL (1.8-7.7); Neutrophils % 81.1 %; Nucleated Red Blood Cells % 0.3 %; Platelet Count 193 10^3/cmm (157-399); Red Cell Distribution Width 20.3 % (12.1-15.1); White Blood Count 9.57 10^3/uL (3.29-11.43)
--- NOTE | 2024-06-28 06:00 | XRR_ITS ---
PROCEDURE INFORMATION: Exam: XR Chest Exam date and time: 06/28/2024 4:13 AM Age: 63 years old Clinical indication: Other: Daily portable for vented patient; Additional info: [facility] vent TECHNIQUE: Imaging protocol: Radiologic exam of the chest. Views: 1 view. COMPARISON: CR XR chest 1V portable [id number] 06/27/2024 7:09 AM FINDINGS: Lungs: Stable effusions and infiltrates. Pleural spaces: Unremarkable. No pleural effusion. No pneumothorax. Heart/Mediastinum: No change in the heart or mediastinum. Bones/joints: Unremarkable. Other findings: Stable life-support lines. XR/XR chest 1V portable [id number] IMPRESSION: No significant change.
[2024-06-28 06:10] LABS: Magnesium 2.3 mg/dL (1.7-2.3)
[2024-06-28 06:13] LABS: Vancomycin Random 25.5 ug/mL (20.0-40.0)
[2024-06-28 07:20] LABS: Alanine Aminotransferase 7 U/L (0-41); Albumin Level 3.8 g/dL (3.5-5.2); Alkaline Phosphatase 110 U/L (40-130); Aspartate Amino Transferase 10 U/L (0-40); Blood Urea Nitrogen 69 mg/dL (8-23); Calcium 9.9 mg/dL (8.5-10.5); Carbon Dioxide 34 mmol/L (22-29); Chloride 91 mmol/L (98-107); Creatinine Clr Calc Pharmacy 49.8005; Globulin 2.6 g/dL (1.3-4.6); Glomerular Filtration Rate 27.5 mL/min (90-130); Glucose 150 mg/dL (65-115); Osmolality Calculated 315 mOsm/kg (285-295); Sodium 141 mmol/L (136-145); Total Bilirubin 0.7 mg/dL (0.15-1.2); Total Protein 6.4 g/dL (6.6-8.7)
[2024-06-28] MEDS: budesonide 0.5 mg/2 mL Neb INHALATION ×2 (08:11→19:56)
[2024-06-28] MEDS: thiamine 100 mg/mL 2mL SDV IVP (09:10)
[2024-06-28] MEDS: gabapentin 300 mg Capsule PO ×2 (09:11→17:37)
[2024-06-28] MEDS: BuSPIRONE 10 mg Tablet PO ×3 (09:11→20:59)
[2024-06-28] MEDS: tamsulosin 0.4 mg Capsule PO ×2 (09:11→17:37)
[2024-06-28] MEDS: FUROsemide 10 mg/mL SDV 10mL 60 MG IVP ×2 (09:48→22:12)
[2024-06-28 11:05] LABS: Glucose Point of Care 147 mg/dL (70-110)
[2024-06-28 12:24] LABS: Glucose Point of Care 140 mg/dL (70-110)
--- NOTE | 2024-06-28 13:14 | P.PN_ITS ---
Subjective 2 Subjective: Overnight patient's oxygen supplementation have gone up. Currently is on 100% FiO2. Saturating 96%. Currently on TV- 550, PEEP-10, FiO2-100. Currently on the lower side of 5, Fentanyl of 150. Appreciate urine output. Has remained afebrile. Hemodynamically stable. Not on pressors. Vitals/I&O/Wt Last Vital Signs Temp 99.6 F 06/28/24 08:15 Pulse 78 06/28/24 11:10 Resp 12 06/28/24 11:10 BP 148/76 06/28/24 10:45 Pulse Ox 89 L 06/28/24 11:10 O2 Del Method Mechanical Ventilation 06/28/24 11:10 O2 Flow Rate 80 06/26/24 08:50 FiO2 70 06/28/24 11:10 06/27/24 06/28/24 06/28/24 22:59 06:59 14:59 Intake Total 455.708 / 1151.542 310.417 / 1461.959 211.483 / 211.483 Output Total 1150 / 4225 3375 / 7600 100 / 100 Balance -694.292 / -3073.458 -3064.583 / -6138.041 111.483 / 111.483 Weight last 48 hrs Weight 163 kg Weight 169.644 kg Physical Exam 2 Narrative: General: Intubated, sedated, morbidly obese, HEENT: PERRLA, pupils bilaterally equal and reactive Chest: Bilateral bronchial breath sounds all over lung riddle with occasional rhonchi coarse crackles present bilaterally right more than left, fine crackles present up to mid chest bilaterally posterior more than anterior CVS: S1-S2 regular, no murmurs, no tachycardia, no gallops, no rubs Abdomen: Soft, nontender, no organomegaly, bowel sounds present Neuro: Intubated, moving all limbs Urinary Catheter Management: Mukherjee: Cath Placed During This Visit: yes Reason for Continuing Indwelling Catheter: Accurate Measurement of Urinary Output in Critically Ill Patients Urinary Catheter Date of Insertion: 06/25/24 Data 06/28/24 05:11 06/28/24 05:11 Micro: Microbiology 06/25/24 18:40 Gram Stain - Final Sputum - Endotracheal Tube Aspirate Sputum Culture - Preliminary Coag positive Staphylococcus 06/25/24 19:44 Urine Culture - Preliminary Urine,Clean Catch Strep species, gamma-hemolytic A&P Assessment and plan (1) Acute respiratory failure with hypoxia and hypercapnia: (2) Acute exacerbation of CHF (congestive heart failure): (3) Acute kidney injury superimposed on stage 3b chronic kidney disease: (4) COPD exacerbation: (5) Class 3 obesity with alveolar hypoventilation and body mass index (BMI) of 40.0 to 44.9 in adult: (6) Diastolic congestive heart failure, NYHA class 3: (7) Progressive pulmonary hypertension: (8) Aortic stenosis: (9) History of coronary angioplasty with insertion of stent: (10) Chronic respiratory failure with hypoxia and hypercapnia: (11) ETOH abuse: (12) Alcohol use disorder: (13) Goals of care, counseling/discussion: Plan Perry Norman is a 63 yo man w/ CKDIIIB, w/COPD, chronic hypoxic respiratory failure on 5L NC, CHF, who was brought to the ED on 06/25/2024, via EMS, for increased dyspnea and increasing O2 requirement and was intubated for acute on chronic hypoxic hypercapneic respiratory failure. Acute on chronic hypoxic and hypercapnic respiratory failure: In setting of diastolic congestive heart failure exacerbation, obstructive sleep apnea, COPD with concerns for pneumonia. History of MRSA positive sputum culture. On review of chart patient has COPD and restrictive lung disease because of morbid obesity. He was prescribed home vent which he refused late last year. Intubated in the ER. Appreciate ABG. Increase IV E/A ratio to 1.2. Try to wean FiO2 keeping saturation over 85 to 88%. Continue with current tidal volume. Currently on 100% FiO2. Increase PEEP to 10. Aggressive pulmonary toilet with chest vest. If not improving in next 24 hours can plan for proning with as needed rocuronium. If oxygen requirements continue to remain high or worsening even after proning will plan to discuss with family regarding potential transfer to a tertiary center where material assembler or associate professor plant pathology is available. Continue sedation with fentanyl and Versed. Target PCO2 of around 60-65. Repeat ABG in afternoon. Sputum culture growing coag positive staph. Oxygen supplementation keeping saturation over 88%. Continue with Solu-Medrol 40 mg every 6 hourly. Pulmicort twice daily, DuoNeb every 4 hours. Follow-up sputum culture, blood culture, urine culture. Urine cultures so far growing, hemolytic strep. Negative bacterial urine antigen. Continue with IV vancomycin, Zosyn and azithromycin. Dose antibiotics as per creatinine clearance. Monitor Vanco trough and random levels daily. Aggressive IV diuresis. Renal function slightly worsening today. Good urine response otherwise. Continue with IV Lasix 60 mg twice daily. Watch for contraction alkalosis, electrolyte abnormalities. Hold off on metolazone. Echocardiogram done EF 50 to 55% moderate to diastolic function, moderate aortic stenosis with gradient of 18.5 across the valve AUBREY on CKD: Creatinine 1.7-2.2. Continue to monitor renal functions every 12 hourly for now. Currently stable at around 2.4. Medical reconciliation done for nephrotoxic drugs. Strict input output charting, daily weights. Appreciate CT on pelvis with no obstructive nephropathy. Hypertension: Required Levophed on presentation to the ER. Currently off pressors. Goal blood pressure 140/90 mmHg with mean over 65. On multiple antihypertensive at home. Blood pressure slightly elevated today. Start on IV hydralazine 10 mg every 6 hour as needed for systolic of more than 160. If continues to remain elevated will start on home dose of oral hydralazine and uptitrate as per home medications. Continue to monitor. History of alcohol abuse. Alcohol level and urine drug screen from admission appreciated Stage II ulcer on the planter aspect of the L. foot (below the 5th metatarsal) - F/u wound care clinic instructions. Anesthesia: Versed, fentanyl Glycemic control: Not needed. Check A1c if elevated will start on insulin sliding scale. Nutrition: N.p.o. CODE STATUS: Full code PUD prophylaxis: Protonix DVT prophylaxis: Given morbid obesity for now we will change to Lovenox 40 mg subcu every 12 hourly. Discharge planning: Depending on the clinical improvement going forward. Continue with care at ICU Goals of care discussion: Discussed in detail with patient's DPOA/sister Ms. Mcleod. Discussed unfortunately patient has significant chronic respiratory failure due to COPD, chronic smoking, restrictive lung disease, severe obstructive sleep apnea, diastolic heart failure for which he has been advised by his associate professor plant pathology in the past about home vent. Discussed given severe comorbidities and significantly weak lungs from the past there is a high chance of prolonged intubation or patient being ventilator dependent going forward. Sister verbalizes understanding. States patient in the past has been noncompliant and continues to smoke. She verbalizes understanding that patient might develop ventilator dependence might require prolonged intubation or even tracheostomy. She states for now if if it comes to tracheostomy patient would not have been okay with the same. She does not think patient would want any resuscitative measures including chest compressions or repeat intubation. CODE STATUS for now will be changed to DNR/DNI. We did discuss that if he remains medically stable requiring mechanical ventilation for a prolonged. There is a possibility of transfer to long-term acute care facility where they can try to wean him off ventilator slowly. Sister verbalizes understanding. 06/28: Discussed that patient is still on high FiO2. Will plan for aggressive chest vest today. If not improving can plan to proning next 24 hours. If patient continues to remain on high oxygen supplementation or worsening might have a transfer to [facility] where associate professor plant pathology or material assembler are available. Family for now agreeable. This documentation was created by [employer] signals analyst software. Every effort was made to ensure accuracy of signals analyst. Any obvious errors or omissions should be clarified with the author of the document. PDMP PDMP Reviewed: Not Reviewed Attestations 2 Medical Necessity Statement*: Requested hospitalization for management of acute on chronic hypoxic and hypercapnic respiratory failure in patient with morbid obesity, obstructive sleep apnea, advanced COPD, restrictive lung disease along with diastolic heart failure as patient is ventilator dependent Critical Care Time: The high probability of a clinically significant, sudden or life threatening deterioration of the patient's [pulmonary, renal, cardiac] system(s) required my full and direct attention, intervention and personal management. The critical care time is as shown. This time is in addition to time spent performing any reported procedures but includes the following: [x] Data and vital sign review and interpretation [x] Patient assessment, examination and intervention [x] Documentation [x] Medication orders and management Critical Care Time (min): 80 Coding Level of Care Code Critical Care >/= 30 minutes Critical care time (in minutes): 80 The high probability of a clinically significant, sudden or life threatening deterioration, as referenced in this documentation, required my full and direct attention, intervention and personal management. The critical care time shown is in addition to time spent performing any reported separately billable procedures and includes the following: [x] Data and vital sign review and interpretation [x ] Patient assessment, examination and intervention [x] Medication orders and management [x] Patient/Family updates as able [x] Care Coordination and Documentation. Other Coding Information This patient has a high probability of clinically significant, sudden or life threatening deterioration of the patient's (neurological/pulmonary/cardiac/renal/ID/endocrine) systems required my full, direct attention, the highest level of physician preparedness for urgent intervention and personal management. I managed/supervised life or organ supporting interventions that required frequent physician assessment. I devoted my full attention in the ICU to the direct care of this patient for the period of time indicated above. Time I spent with family or surrogate(s) is included only if the patient was incapable of providing necessary information or participating in decision making. This time includes the following services provided: Telemetry review Mechanical Ventilation Hemodynamic interpretation, assessment and management Review and interpretation of CXR Review and interpretation of lab values Review and interpretation of microbiologic data and culture results Review of medications and administration Review and interpretation of Nutrition requirements and management Discussion of management with other consultants and services Clinical update to family members Diagnoses Acute respiratory failure with hypoxia and hypercapnia J96.01; J96.02 Acute exacerbation of CHF (congestive heart failure) I50.9 Acute kidney injury superimposed on stage 3b chronic kidney disease N17.9; N18.32 COPD exacerbation J44.1 Class 3 obesity with alveolar hypoventilation, serious comorbidity, and body mass index (BMI) of 40.0 to 44.9 in adult E66.2; Z68.41 Serious obesity comorbidity presence: with serious comorbidity Chronic diastolic congestive heart failure, NYHA class 3 I50.32 Congestive heart failure chronicity: chronic Progressive pulmonary hypertension I27.20 Nonrheumatic aortic valve stenosis I35.0 History of coronary angioplasty with insertion of stent Z95.5 Chronic respiratory failure with hypoxia and hypercapnia J96.11; J96.12 ETOH abuse F10.10 Alcohol use disorder F10.90 Goals of care, counseling/discussion Z71.89
[2024-06-28] MEDS: fentaNYL 1,000 MCG/100 ML BAG 15 MCG IV ×2 (13:32→20:15)
[2024-06-28] MEDS: AZITHROMYCIN ADD-Vantage 500 MG in 0.9% NaCl ADD-Vantage 250 ML 250 MG IV (14:17)
[2024-06-28 14:44] LABS: Glucose Point of Care 165 mg/dL (70-110)
[2024-06-28 15:44] LABS: Anion Gap 13.9 (5-19); Blood Urea Nitrogen 78 mg/dL (8-23); Calcium 9.7 mg/dL (8.5-10.5); Carbon Dioxide 39 mmol/L (22-29); Chloride 94 mmol/L (98-107); Creatinine Clr Calc Pharmacy 45.9697; Glomerular Filtration Rate 25.1 mL/min (90-130); Glucose 156 mg/dL (65-115); Osmolality Calculated 323 mOsm/kg (285-295); Potassium 3.9 mmol/L (3.5-5.1); Sodium 143 mmol/L (136-145)
--- NOTE | 2024-06-28 17:56 | PC.NURSE ---
Shift SUmmary: Started on chest vest. Thick secretions. FIO2 reduced from 100% down to 50% by end of shift. Total urine output: 1650 Versed reduced from 6mg/hr down to 3mg/hr. With stimulation such as repositioning the patient gets agitated. Displays a normal flexion in response to an irritation and will quickly relax after repositioning is completed. With agitation he appears to look at staff and possibly track staff around the room, but cannot say for sure.
[2024-06-28 18:11] LABS: ABG PH Result 7.43 (7.35-7.45); Alveolar-Arterial Oxygen Gradi 27.5 mmHg (5-10); Arterial Blood Gas Hematocrit 49.7 % (42-52); Base Excess ABG 15.7 mmol/L (-2.0-2.0); Blood Gas Allen Test Pos; Blood Gas Operator Identificat CAK; Blood Gas Sample Site Radial, left; Blood Gas Sample Type Arterial; Blood Gas Tidal Volume 0.55; Carboxyhemoglobin 0.5 %THgb (0.4-20.1); HCO3 ABG 44.3 mmol/L (22-26); HGB O2 Sat 87.3 % (95-100); Ionized Calcium Level - ABG 1.2 mmol/L (1.1-1.4); Methemoglobin 0.1 % (0.4-1.5); Oxygen Device VENT; Oxygen Saturation ABG 87.9; PO2 ABG 60.5 mmHg (80.0-100.0); PO2 FiO2 Ratio Arterial Blood 121; Potassium Level - ABG 3.8 mmol/L (3.5-5.0); Total Hemoglobin 16.2 g/dL (14-18)
[2024-06-28 20:51] LABS: Glucose Point of Care 189 mg/dL (70-110)
[2024-06-28] MEDS: sennosides 8.6 mg Tablet 17.2 MG PO (20:59)
[2024-06-29] VITALS (107 sets, daily range): BP systolic 139–171; BP diastolic 64–87; PULSE 68–84; RESP 12–17; TEMP 36.3–37.8; O2SAT 87–90
[2024-06-29] MEDS: ipratropium-albuterol 3 mL Neb INHALATION ×7 (00:33→23:56)
[2024-06-29] MEDS: chlorhexidine gluconate 4% Btl 118 mL 1 APPLIC TOPICAL (01:24)
[2024-06-29 02:42] LABS: Glucose Point of Care 157 mg/dL (70-110)
[2024-06-29] MEDS: insulin lispro 100 unit/1 mL SUBCUT ×4 (02:45→20:52)
[2024-06-29] MEDS: methylPREDNISolone sod succ 40 mg/mL INJ IVP ×3 (02:46→16:59)
[2024-06-29] MEDS: fentaNYL 1,000 MCG/100 ML BAG 15 MCG IV ×3 (02:52→16:58)
[2024-06-29 04:29] LABS: Basophils % 0.1 %; Hematocrit 53.9 % (37-53); Lymphocytes # 1.7 10^3/uL (0.8-4.8); Lymphocytes % 18.6 %; Mean Corpuscular HGB Conc 29.1 g/dL (30-55); Mean Corpuscular Hemoglobin 27.4 pg (27-33); Mean Corpuscular Volume 94.2 fl (82-101); Mean Platelet Volume 9.6 fL (7.4-10.4); Monocytes # 0.5 10^3/uL (0.2-0.9); Monocytes % 5.2 %; Neutrophils # 6.86 10^3/uL (1.8-7.7); Neutrophils % 75.5 %; Nucleated Red Blood Cells % 0 %; Platelet Count 186 10^3/cmm (157-399); Red Blood Count 5.72 10^6/uL (3.85-5.65); Red Cell Distribution Width 20.2 % (12.1-15.1); White Blood Count 9.08 10^3/uL (3.29-11.43)
[2024-06-29 04:50] LABS: Alanine Aminotransferase 7 U/L (0-41); Albumin Level 3.9 g/dL (3.5-5.2); Alkaline Phosphatase 102 U/L (40-130); Anion Gap 16.9 (5-19); Aspartate Amino Transferase 8 U/L (0-40); Calcium 9.6 mg/dL (8.5-10.5); Carbon Dioxide 39 mmol/L (22-29); Chloride 93 mmol/L (98-107); Creatinine Clr Calc Pharmacy 41.2142; Globulin 2.6 g/dL (1.3-4.6); Glomerular Filtration Rate 22.1 mL/min (90-130); Glucose 153 mg/dL (65-115); Osmolality Calculated 330 mOsm/kg (285-295); Potassium 3.9 mmol/L (3.5-5.1); Sodium 145 mmol/L (136-145); Total Bilirubin 0.8 mg/dL (0.15-1.2); Total Protein 6.5 g/dL (6.6-8.7)
[2024-06-29 04:51] LABS: Magnesium 2.6 mg/dL (1.7-2.3)
[2024-06-29 04:54] LABS: Vancomycin Random 17.3 ug/mL (20.0-40.0)
[2024-06-29 05:02] LABS: Blood Urea Nitrogen 89 mg/dL (8-23)
[2024-06-29 05:16] LABS: ABG PH Result 7.47 (7.35-7.45); Arterial Blood Gas Hematocrit 50.9 % (42-52); Base Excess ABG 17.3 mmol/L (-2.0-2.0); Blood Gas Allen Test Pos; Blood Gas Operator Identificat SAM; Blood Gas Sample Site Radial, right; Blood Gas Sample Type Arterial; Blood Gas Tidal Volume 0.55; Carboxyhemoglobin 0.4 %THgb (0.4-20.1); HGB O2 Sat 86.6 % (95-100); Ionized Calcium Level - ABG 1.2 mmol/L (1.1-1.4); Methemoglobin 0.7 % (0.4-1.5); Oxygen Device VENT; Oxygen Saturation ABG 87.6; PO2 ABG 57.5 mmHg (80.0-100.0); PO2 FiO2 Ratio Arterial Blood 115; Potassium Level - ABG 3.6 mmol/L (3.5-5.0); Total Hemoglobin 16.6 g/dL (14-18)
[2024-06-29 05:18] LABS: ABG PCO2 61.3 mmHg (35-45)
[2024-06-29] MEDS: piperacillin-tazobactam 3.375 GM in sodium chloride 0.9% (plus) 50 ML IV ×3 (05:36→21:11)
[2024-06-29] MEDS: enoxaparin 40 mg/0.4 mL Syringe SUBCUT ×2 (05:36→17:32)
[2024-06-29] MEDS: pantoprazole 40 mg SDV IVP (05:36)
--- NOTE | 2024-06-29 06:00 | XRR_ITS ---
PROCEDURE INFORMATION: Exam: XR Chest Exam date and time: 06/29/2024 3:04 AM Age: 63 years old Clinical indication: Other: F/u resp failure; Prior surgery; Surgery date: 6+ months; Surgery type: Coronary stent; F/u for resp failure. Patient intubated. ; Additional info: [facility] vent TECHNIQUE: Imaging protocol: Radiologic exam of the chest. Views: 1 view. COMPARISON: CR (CHEST, ) 06/28/2024 4:13 AM FINDINGS: Lungs: Persistent and similar bilateral lower lung opacification. Pleural spaces: No pneumothorax. Probable bilateral pleural effusion. Heart/Mediastinum: Similar enlarged cardiac contour. Bones/joints: Unchanged bones. XR/XR chest 1V portable [id number] IMPRESSION: Persistent and similar lower lung airspace disease, atelectasis and/or pleural effusion.
[2024-06-29] MEDS: midazolam hcl 100 MG/100 ML BAG IV (06:55)
[2024-06-29 08:07] LABS: Glucose Point of Care 157 mg/dL (70-110)
[2024-06-29] MEDS: budesonide 0.5 mg/2 mL Neb INHALATION ×2 (08:17→19:48)
[2024-06-29] MEDS: thiamine 100 mg/mL 2mL SDV IVP (08:37)
[2024-06-29] MEDS: nicotine 14 mg Patch 1 PATCH TRANSDERMA (08:38)
[2024-06-29] MEDS: docusate sodium 100 mg Capsule 200 MG PO (08:38)
[2024-06-29] MEDS: gabapentin 300 mg Capsule PO ×2 (08:38→17:32)
[2024-06-29] MEDS: BuSPIRONE 10 mg Tablet PO ×3 (08:38→20:44)
[2024-06-29] MEDS: tamsulosin 0.4 mg Capsule PO ×2 (08:38→17:32)
--- NOTE | 2024-06-29 09:03 | PC.NURSE ---
Patient awake, but is not following commands. Thrashing head from side to side, pulling against restraints, thrashing legs. Sedation increased per MAR. Patient opens eyes to verbal stimuli.
[2024-06-29] MEDS: FUROsemide 10 mg/mL SDV 10mL 60 MG IVP (10:00)
[2024-06-29] MEDS: hyDRALAzine 20 mg/mL INJ 1 mL 10 MG IVP (12:19)
--- NOTE | 2024-06-29 13:19 | P.PN_ITS ---
Subjective 2 Subjective: Last 24 hours patient improving. Currently on 50% of FiO2 on ventilator saturating 88 to 99%. Appreciate ABG. Patient currently on 50% FiO2 with tidal above 550, PEEP of 10. Has remained hemodynamically stable. Tmax in last 24 hours 99.8 Fahrenheit yesterday afternoon. Appreciate urine output of around 3.7 L. Vitals/I&O/Wt Last Vital Signs Temp 100.0 F H 06/29/24 12:15 Pulse 76 06/29/24 12:15 Resp 12 06/29/24 11:15 BP 171/79 06/29/24 12:15 Pulse Ox 88 L 06/29/24 12:15 O2 Del Method Mechanical Ventilation 06/29/24 12:15 O2 Flow Rate 80 06/26/24 08:50 FiO2 45 06/29/24 11:15 06/28/24 06/29/24 06/29/24 22:59 06:59 14:59 Intake Total 183.25 / 409.275 166.35 / 575.625 195.217 / 195.217 Output Total 1550 / 2100 1600 / 3700 700 / 700 Balance -1366.75 / -1690.725 -1433.65 / -3124.375 -504.783 / -504.783 Weight last 48 hrs Weight 159.5 kg Weight 163 kg Physical Exam 2 Narrative: General: Intubated, sedated, morbidly obese, HEENT: PERRLA, pupils bilaterally equal and reactive Chest: Bilateral bronchial breath sounds all over lung riddle with occasional rhonchi coarse crackles present bilaterally right more than left, fine crackles present up to mid chest bilaterally posterior more than anterior CVS: S1-S2 regular, no murmurs, no tachycardia, no gallops, no rubs Abdomen: Soft, nontender, no organomegaly, bowel sounds present Neuro: Intubated, moving all limbs Urinary Catheter Management: Mukherjee: Cath Placed During This Visit: yes Reason for Continuing Indwelling Catheter: Accurate Measurement of Urinary Output in Critically Ill Patients Urinary Catheter Date of Insertion: 06/25/24 Quick SOFA Score: Respiratory Rate: 12 Blood Pressure: 171/79 [place] Coma Scale: 7 qSOFA Score: 1 If qSOFA score 2 or greater, continue: PaO2/FiO2 Ratio (mmHg): 115 Blood Pressure Mean: 109 Bilirubin (mg/dl): 0.8 Platelets (x10?/ml): 186 C reatinine (mg/dl): 2.9 SOFA Score: 8 Evaluation: Current stage of sepsis: severe sepsis Sepsis stage criteria used: [facility] Sep-1 and Sepsis-3 Crystalloid fluids: no fluids ordered Blood cultures ordered: Yes Possible source: pulmonary Focused Exam: Vital signs: Temp Pulse Resp BP Pulse Ox O2 Del Method FiO2 06/29/24 12:15 100.0 F H 76 171/79 88 L Mechanical Ventila tion 06/29/24 12:00 75 163/75 87 L Mechanical Ventila tion 06/29/24 11:45 76 160/73 88 L Mechanical Ventila tion 06/29/24 11:30 74 155/78 88 L Mechanical Ventila tion 06/29/24 11:15 76 163/78 88 L Mechanical Ventila tion 06/29/24 11:15 74 12 88 L Mechanical Ventila tion 45 06/29/24 11:00 75 153/75 87 L Mechanical Ventila tion 06/29/24 10:45 75 156/76 88 L Mechanical Ventila tion 06/29/24 10:30 81 161/81 88 L Mechanical Ventila tion 06/29/24 10:25 16 88 L 46 06/29/24 10:15 75 158/75 89 L Mechanical Ventila tion 06/29/24 10:00 75 152/73 89 L Mechanical Ventila tion 50 06/29/24 09:45 75 154/71 89 L Mechanical Ventila tion 50 06/29/24 09:30 100.1 F H 75 153/72 89 L Mechanical Ventila tion 50 06/29/24 09:15 76 147/75 89 L Mechanical Ventila tion 50 06/29/24 09:00 76 155/69 88 L Mechanical Ventila tion 50 06/29/24 08:45 77 154/71 88 L Mechanical Ventila tion 50 06/29/24 08:30 79 146/73 88 L Mechanical Ventila tion 50 06/29/24 08:25 16 90 50 06/29/24 08:15 72 153/75 88 L Mechanical Ventila tion 50 06/29/24 08:00 50 06/29/24 08:00 72 160/76 88 L Mechanical Ventila tion 50 06/29/24 08:00 84 17 88 L Mechanical Ventila tion 50 06/29/24 07:45 71 153/73 88 L Mechanical Ventila tion 50 06/29/24 07:30 73 151/71 88 L Mechanical Ventila tion 50 06/29/24 07:15 73 155/73 89 L Mechanical Ventila tion 50 06/29/24 07:00 73 159/74 89 L Mechanical Ventila tion 50 06/29/24 06:00 71 147/70 88 L 06/29/24 06:00 70 06/29/24 05:45 72 162/73 88 L 06/29/24 05:30 72 161/74 88 L 06/29/24 05:15 97.4 F L 72 151/71 88 L Mechanical Ventila tion 06/29/24 05:00 73 160/73 88 L 06/29/24 04:45 70 151/72 88 L 06/29/24 04:30 70 160/73 88 L 06/29/24 04:23 70 12 88 L Mechanical Ventila tion 50 06/29/24 04:19 12 88 L 06/29/24 04:15 70 148/73 88 L 06/29/24 04:00 69 162/78 89 L 06/29/24 03:45 69 159/78 89 L 06/29/24 03:30 74 163/78 89 L 06/29/24 03:15 70 160/77 89 L 06/29/24 03:00 71 163/85 88 L 06/29/24 02:45 71 161/81 88 L 06/29/24 02:30 70 159/78 88 L 06/29/24 02:15 72 159/79 88 L 06/29/24 02:00 68 154/74 88 L 06/29/24 01:45 76 161/73 88 L 06/29/24 01:30 72 164/81 89 L Date exam was performed: 06/29/24 Time exam was performed: 13:30 2 Sepsis Screen No Definite Risk 06/25/24, 20:30 Respiratory Rate, (12 - 18) 12 breaths/min Today, 13:14 Blood Pressure 171/79 mmHg Today, 12:15 [place] Coma Scale Score 7 Today, 12:24 Quick SOFA Score 0 06/25/24, 20:30 SOFA Score: 2 ABG PO2/FiO2 Ratio 115 Today, 05:04 Dylan Coma Scale Score 7 Today, 12:24 Blood Pressure Mean 109 mmHg Today, 12:15 Total Bilirubin, (0.15-1.2) 0.8 mg/dL Today, 03:40 Platelet Count, (157-399) 186 10^3/cmm Today, 03:40 Creatinine, (0.7-1.2) 2.9 mg/dL H Today, 03:40 Data 06/29/24 03:40 06/29/24 03:40 Micro: Microbiology 06/28/24 09:45 Gram Stain - Final Sputum - Endotracheal Tube Aspirate 06/25/24 18:40 Gram Stain - Final Sputum - Endotracheal Tube Aspirate Sputum Culture - Final Staph hyicus/chromogenes 06/25/24 19:44 Urine Culture - Final Urine,Clean Catch Enterococcus faecalis A&P Assessment and plan (1) Acute respiratory failure with hypoxia and hypercapnia: (2) Acute exacerbation of CHF (congestive heart failure): (3) Acute kidney injury superimposed on stage 3b chronic kidney disease: (4) COPD exacerbation: (5) Class 3 obesity with alveolar hypoventilation and body mass index (BMI) of 40.0 to 44.9 in adult: (6) Diastolic congestive heart failure, NYHA class 3: (7) Progressive pulmonary hypertension: (8) Aortic stenosis: (9) History of coronary angioplasty with insertion of stent: (10) Chronic respiratory failure with hypoxia and hypercapnia: (11) ETOH abuse: (12) Alcohol use disorder: (13) Goals of care, counseling/discussion: Plan Perry Norman is a 63 yo man w/ CKDIIIB, w/COPD, chronic hypoxic respiratory failure on 5L NC, CHF, who was brought to the ED on 06/25/2024, via EMS, for increased dyspnea and increasing O2 requirement and was intubated for acute on chronic hypoxic hypercapneic respiratory failure. Acute on chronic hypoxic and hypercapnic respiratory failure: In setting of diastolic congestive heart failure exacerbation, obstructive sleep apnea, COPD with concerns for pneumonia. History of MRSA positive sputum culture. On review of chart patient has COPD and restrictive lung disease because of morbid obesity. He was prescribed home vent which he refused late last year. Intubated in the ER. Appreciate ABG. Increase IV E/A ratio to 1.2. Try to wean FiO2 keeping saturation over 85 to 88%. Continue with current tidal volume. Currently on 100% FiO2. Increase PEEP to 10. Aggressive pulmonary toilet with chest vest. If not improving in next 24 hours can plan for proning with as needed rocuronium. If oxygen requirements continue to remain high or worsening even after proning will plan to discuss with family regarding potential transfer to a tertiary center where machine stone polisher or merchandising representative is available. Continue sedation with fentanyl and Versed. Target PCO2 of around 60-65. Repeat ABG in afternoon. Sputum culture growing coag positive staph. Oxygen supplementation keeping saturation over 88%. Continue with Solu-Medrol 40 mg every 8 hourly. Pulmicort twice daily, DuoNeb every 4 hours. Follow-up sputum culture, blood culture, urine culture. Urine cultures so far growing, hemolytic strep. Negative bacterial urine antigen. Continue with IV vancomycin, Zosyn and azithromycin. Dose antibiotics as per creatinine clearance. Monitor Vanco trough and random levels daily. Aggressive IV diuresis. Renal function slightly worsening today. Good urine response otherwise. Continue with IV Lasix 60 mg twice daily. Watch for contraction alkalosis, electrolyte abnormalities. Hold off on metolazone. Echocardiogram done EF 50 to 55% moderate to diastolic function, moderate aortic stenosis with gradient of 18.5 across the valve AUBREY on CKD: Creatinine 1.7-2.2. Continue to monitor renal functions every 12 hourly for now. Currently stable at around 2.4. Medical reconciliation done for nephrotoxic drugs. Strict input output charting, daily weights. Appreciate CT on pelvis with no obstructive nephropathy. Hypertension: Required Levophed on presentation to the ER. Currently off pressors. Goal blood pressure 140/90 mmHg with mean over 65. On multiple antihypertensive at home. Blood pressure slightly elevated today. Start on IV hydralazine 10 mg every 6 hour as needed for systolic of more than 160. If continues to remain elevated will start on home dose of oral hydralazine and uptitrate as per home medications. Continue to monitor. History of alcohol abuse. Alcohol level and urine drug screen from admission appreciated Stage II ulcer on the planter aspect of the L. foot (below the 5th metatarsal) - F/u wound care clinic instructions. Anesthesia: Versed, fentanyl Glycemic control: Not needed. Check A1c if elevated will start on insulin sliding scale. Nutrition: N.p.o. CODE STATUS: Full code PUD prophylaxis: Protonix DVT prophylaxis: Given morbid obesity for now we will change to Lovenox 40 mg subcu every 12 hourly. Discharge planning: Depending on the clinical improvement going forward. Continue with care at ICU Goals of care discussion: Discussed in detail with patient's DPOA/sister Ms. Mcleod. Discussed unfortunately patient has significant chronic respiratory failure due to COPD, chronic smoking, restrictive lung disease, severe obstructive sleep apnea, diastolic heart failure for which he has been advised by his merchandising representative in the past about home vent. Discussed given severe comorbidities and significantly weak lungs from the past there is a high chance of prolonged intubation or patient being ventilator dependent going forward. Sister verbalizes understanding. States patient in the past has been noncompliant and continues to smoke. She verbalizes understanding that patient might develop ventilator dependence might require prolonged intubation or even tracheostomy. She states for now if if it comes to tracheostomy patient would not have been okay with the same. She does not think patient would want any resuscitative measures including chest compressions or repeat intubation. CODE STATUS for now will be changed to DNR/DNI. We did discuss that if he remains medically stable requiring mechanical ventilation for a prolonged. There is a possibility of transfer to long-term acute care facility where they can try to wean him off ventilator slowly. Sister verbalizes understanding. 06/28: Discussed that patient is still on high FiO2. Will plan for aggressive chest vest today. If not improving can plan to proning next 24 hours. If patient continues to remain on high oxygen supplementation or worsening might have a transfer to [facility] where merchandising representative or machine stone polisher are available. Family for now agreeable. Plan for the day: Patient showing improvement today. Down to 50% FiO2. Will plan to continue with aggressive chest vest and hopefully weaning down on PEEP today. Target saturation between 85 to 88%. Patient does have significant chronic COPD, septal lung disease, morbid obesity who was advised for a home bed but had declined. Appreciate urine culture growing Enterococcus faecalis, sputum culture growing Staphylococcus hycus. Continue with current vancomycin and Zosyn. Finished 3- day course of azithromycin with last dose today. Overall patient on 13 L negative. Received dose of Lasix today morning. Stop any further Lasix for now. Will monitor urine output and diurese accordingly. Continue sedation with Versed and fentanyl. Plan for possible sedation vacation in next 24 hours with hopeful extubation in 48 hours. Appreciate BMP. Creatinine improved to 0.9. BUN of 89. Hold off on Lasix as above. Repeat BMP in afternoon. Depending on further renal function can plan to hydrate patient gently as overall patient is around more than 14 L negative. Goal blood pressure less than 140/90 mmHg. Continue with as needed hydralazine for now. Blood pressures continue to remain elevated will plan to add home dose of standing oral hydralazine. Continue with home dose of gabapentin 10 mg twice daily. Add finasteride 5 mg at home dose daily. Continue with home dose of duloxetine 60 mg oral daily. Wean Solu-Medrol to 40 mg every 8 hourly Repeat chest x-ray and ABG in AM. This documentation was created by [employer] bindery assistant software. Every effort was made to ensure accuracy of bindery assistant. Any obvious errors or omissions should be clarified with the author of the document. PDMP PDMP Reviewed: Not Reviewed Attestations 2 Medical Necessity Statement*: Requires further hospitalization for management of acute on chronic hypoxic and hypercapnic respiratory failure as patient is ventilator dependent in setting of morbid obesity, obstructive sleep apnea, restrictive and constrictive lung disease, Enterococcus UTI, Staphylococcus pneumonia while ventilator settings are weaned Critical Care Time: The high probability of a clinically significant, sudden or life threatening deterioration of the patient's [pulmonary, cardiac, renal] system(s) required my full and direct attention, intervention and personal management. The critical care time is as shown. This time is in addition to time spent performing any reported procedures but includes the following: [x] Data and vital sign review and interpretation [x] Patient assessment, examination and intervention [x] Documentation [x] Medication orders and management Critical Care Time (min): 90 Coding Level of Care Code Critical Care >/= 30 minutes Critical care time (in minutes): 90 The high probability of a clinically significant, sudden or life threatening deterioration, as referenced in this documentation, required my full and direct attention, intervention and personal management. The critical care time shown is in addition to time spent performing any reported separately billable procedures and includes the following: [x] Data and vital sign review and interpretation [x ] Patient assessment, examination and intervention [x] Medication orders and management [x] Patient/Family updates as able [x] Care Coordination and Documentation. Other Coding Information This patient has a high probability of clinically significant, sudden or life threatening deterioration of the patient's (neurological/pulmonary/cardiac/renal/ID/endocrine) systems required my full, direct attention, the highest level of physician preparedness for urgent intervention and personal management. I managed/supervised life or organ supporting interventions that required frequent physician assessment. I devoted my full attention in the ICU to the direct care of this patient for the period of time indicated above. Time I spent with family or surrogate(s) is included only if the patient was incapable of providing necessary information or participating in decision making. This time includes the following services provided: Telemetry review Mechanical Ventilation Hemodynamic interpretation, assessment and management Review and interpretation of CXR Review and interpretation of lab values Review and interpretation of microbiologic data and culture results Review of medications and administration Review and interpretation of Nutrition requirements and management Discussion of management with other consultants and services Clinical update to family members Diagnoses Acute respiratory failure with hypoxia and hypercapnia J96.01; J96.02 Acute exacerbation of CHF (congestive heart failure) I50.9 Acute kidney injury superimposed on stage 3b chronic kidney disease N17.9; N18.32 COPD exacerbation J44.1 Class 3 obesity with alveolar hypoventilation, serious comorbidity, and body mass index (BMI) of 40.0 to 44.9 in adult E66.2; Z68.41 Serious obesity comorbidity presence: with serious comorbidity Chronic diastolic congestive heart failure, NYHA class 3 I50.32 Congestive heart failure chronicity: chronic Progressive pulmonary hypertension I27.20 Nonrheumatic aortic valve stenosis I35.0 History of coronary angioplasty with insertion of stent Z95.5 Chronic respiratory failure with hypoxia and hypercapnia J96.11; J96.12 ETOH abuse F10.10 Alcohol use disorder F10.90 Goals of care, counseling/discussion Z71.89
[2024-06-29] MEDS: sodium chloride 0.9% 1,000 ML 100 ML IV (13:38)
[2024-06-29] MEDS: fluoxetine 20 mg Capsule 60 MG PO (14:15)
[2024-06-29] MEDS: finasteride 5 mg Tablet PO (14:15)
[2024-06-29 14:51] LABS: Glucose Point of Care 174 mg/dL (70-110)
[2024-06-29 15:17] LABS: Anion Gap 15.3 (5-19); Calcium 8.2 mg/dL (8.5-10.5); Carbon Dioxide 35 mmol/L (22-29); Chloride 99 mmol/L (98-107); Creatinine Clr Calc Pharmacy 49.1766; Glomerular Filtration Rate 27.5 mL/min (90-130); Glucose 152 mg/dL (65-115); Osmolality Calculated 330 mOsm/kg (285-295); Potassium 3.3 mmol/L (3.5-5.1); Sodium 146 mmol/L (136-145)
[2024-06-29 15:23] LABS: Blood Urea Nitrogen 84 mg/dL (8-23)
[2024-06-29] MEDS: sodium chloride 0.45% 1,000 ML 100 ML IV (16:08)
[2024-06-29] MEDS: potassium chloride premix 100 ML 25 MEQ IV (16:09)
[2024-06-29] MEDS: hyDRALAzine 25 mg Tablet PO (17:32)
[2024-06-29 17:56] LABS: Glucose Point of Care 155 mg/dL (70-110)
--- NOTE | 2024-06-29 20:21 | PC.NURSE ---
Lasix Lasix order active while Dr. Truong's progress note states to discontinue lasix. Dr. Truong contacted for clarification; order received to place lasix on hold.
[2024-06-29] MEDS: sennosides 8.6 mg Tablet 17.2 MG PO (20:44)
[2024-06-29 20:57] LABS: Glucose Point of Care 170 mg/dL (70-110)
[2024-06-29 22:42] LABS: Glucose Point of Care 154 mg/dL (70-110)
[2024-06-30] VITALS (110 sets, daily range): BP systolic 138–175; BP diastolic 72–112; PULSE 65–91; RESP 10–17; TEMP 36.9–37.6; O2SAT 87–93; BMI 47.4
[2024-06-30] MEDS: fentaNYL 1,000 MCG/100 ML BAG 15 MCG IV ×2 (00:19→05:51)
[2024-06-30 01:28] LABS: Glucose Point of Care 157 mg/dL (70-110)
[2024-06-30] MEDS: insulin lispro 100 unit/1 mL SUBCUT ×4 (01:33→20:26)
[2024-06-30] MEDS: methylPREDNISolone sod succ 40 mg/mL INJ IVP ×3 (01:33→17:34)
[2024-06-30] MEDS: hyDRALAzine 20 mg/mL INJ 1 mL 10 MG IVP ×3 (03:06→21:41)
[2024-06-30 03:28] LABS: ABG PH Result 7.45 (7.35-7.45); Alveolar-Arterial Oxygen Gradi 23.9 mmHg (5-10); Arterial Blood Gas Hematocrit 51.9 % (42-52); Base Excess ABG 15.6 mmol/L (-2.0-2.0); Blood Gas Allen Test Pos; Blood Gas Operator Identificat SAM; Blood Gas Sample Site Radial, right; Blood Gas Sample Type Arterial; Blood Gas Tidal Volume 0.55; Carboxyhemoglobin 0.8 %THgb (0.4-20.1); HCO3 ABG 43.7 mmol/L (22-26); HGB O2 Sat 87.4 % (95-100); Ionized Calcium Level - ABG 1.2 mmol/L (1.1-1.4); Methemoglobin 0.9 % (0.4-1.5); Oxygen Device VENT; Oxygen Saturation ABG 88.9; PO2 ABG 60.4 mmHg (80.0-100.0); PO2 FiO2 Ratio Arterial Blood 134; Potassium Level - ABG 3.8 mmol/L (3.5-5.0); Total Hemoglobin 16.9 g/dL (14-18)
[2024-06-30] MEDS: ipratropium-albuterol 3 mL Neb INHALATION ×6 (03:44→23:42)
[2024-06-30 03:47] LABS: ABG PCO2 63.1 mmHg (35-45)
[2024-06-30] MEDS: chlorhexidine gluconate 4% Btl 118 mL 1 APPLIC TOPICAL (03:57)
[2024-06-30 05:14] LABS: Basophils % 0.1 %; Hematocrit 55.6 % (37-53); Lymphocytes % 24.7 %; Mean Corpuscular HGB Conc 28.8 g/dL (30-55); Mean Corpuscular Hemoglobin 27.4 pg (27-33); Mean Corpuscular Volume 95.2 fl (82-101); Mean Platelet Volume 9.4 fL (7.4-10.4); Monocytes # 0.5 10^3/uL (0.2-0.9); Neutrophils # 5.48 10^3/uL (1.8-7.7); Neutrophils % 68.7 %; Nucleated Red Blood Cells % 0 %; Platelet Count 146 10^3/cmm (157-399); Red Blood Count 5.84 10^6/uL (3.85-5.65); Red Cell Distribution Width 19.9 % (12.1-15.1); White Blood Count 7.98 10^3/uL (3.29-11.43)
[2024-06-30 05:30] LABS: Alanine Aminotransferase 8 U/L (0-41); Alkaline Phosphatase 92 U/L (40-130); Anion Gap 13.1 (5-19); Aspartate Amino Transferase 8 U/L (0-40); Calcium 9.7 mg/dL (8.5-10.5); Chloride 98 mmol/L (98-107); Creatinine Clr Calc Pharmacy 42.1514; Globulin 2.5 g/dL (1.3-4.6); Glucose 165 mg/dL (65-115); Osmolality Calculated 339 mOsm/kg (285-295); Potassium 4.1 mmol/L (3.5-5.1); Sodium 148 mmol/L (136-145); Total Protein 6.5 g/dL (6.6-8.7)
[2024-06-30 05:31] LABS: Vancomycin Random 11.7 ug/mL (20.0-40.0)
[2024-06-30 05:34] LABS: Carbon Dioxide 41 mmol/L (22-29)
[2024-06-30 05:35] LABS: Blood Urea Nitrogen 96 mg/dL (8-23); Magnesium 0.2 mg/dL (1.7-2.3)
--- NOTE | 2024-06-30 06:00 | XRR_ITS ---
PROCEDURE INFORMATION: Exam: XR Chest Exam date and time: 06/30/2024 10:14 AM Age: 63 years old Clinical indication: Shortness of breath; Additional info: Intubated TECHNIQUE: Imaging protocol: Radiologic exam of the chest. Views: 1 view. COMPARISON: CR XR chest 1V portable [id number] 06/29/2024 3:04 AM FINDINGS: Tubes, catheters and devices: Endotracheal tube tip 3.5 cm superior to the andres. Nasogastric tube extends below the left hemidiaphragm with tip not visualized. Upper thoracic spinal hardware noted again. Lungs: There are mild bibasilar opacities improved bilaterally. Pleural spaces: Unremarkable. No pleural effusion. No pneumothorax. Heart/Mediastinum: Unremarkable. No cardiomegaly. Bones/joints: See Tubes, catheters and devices finding. XR/XR chest 1V portable [id number] IMPRESSION: Improved aeration of the lung bases with mild bibasilar opacities.
[2024-06-30] MEDS: enoxaparin 40 mg/0.4 mL Syringe SUBCUT ×2 (06:28→17:34)
[2024-06-30] MEDS: pantoprazole 40 mg SDV IVP (06:28)
[2024-06-30] MEDS: piperacillin-tazobactam 3.375 GM in sodium chloride 0.9% (plus) 50 ML IV ×3 (06:28→21:41)
[2024-06-30] MEDS: magnesium sulfate premix 4 GM/100 ML PREMIX IV (06:44)
[2024-06-30] MEDS: midazolam hcl 100 MG/100 ML BAG IV (07:16)
[2024-06-30 07:45] LABS: Glucose Point of Care 192 mg/dL (70-110)
[2024-06-30] MEDS: budesonide 0.5 mg/2 mL Neb INHALATION ×2 (07:56→20:19)
[2024-06-30] MEDS: BuSPIRONE 10 mg Tablet PO ×3 (08:34→20:26)
[2024-06-30] MEDS: finasteride 5 mg Tablet PO (08:34)
[2024-06-30] MEDS: gabapentin 300 mg Capsule PO ×2 (08:34→17:34)
[2024-06-30] MEDS: hyDRALAzine 25 mg Tablet PO ×2 (08:34→17:34)
[2024-06-30] MEDS: nicotine 14 mg Patch 1 PATCH TRANSDERMA (08:34)
[2024-06-30] MEDS: tamsulosin 0.4 mg Capsule PO ×2 (08:34→17:34)
[2024-06-30] MEDS: docusate sodium 100 mg Capsule 200 MG PO (08:34)
[2024-06-30] MEDS: fluoxetine 20 mg Capsule 60 MG PO (08:34)
[2024-06-30] MEDS: thiamine 100 mg/mL 2mL SDV IVP (08:34)
[2024-06-30] MEDS: VANCOMYCIN ADD-Vantage 750 MG in 0.9% NaCl ADD-Vantage 250 ML 250 MG IV (09:53)
[2024-06-30] MEDS: dextrose 5%-sod chloride 0.45% 1,000 ML 100 ML IV ×2 (11:11→21:17)
[2024-06-30 11:46] LABS: Magnesium 3.6 mg/dL (1.7-2.3)
[2024-06-30 12:42] LABS: Glucose Point of Care 180 mg/dL (70-110)
--- NOTE | 2024-06-30 13:10 | PM.PN ---
Subjective Subjective: No acute events overnight. Patient has remained hemodynamically stable and afebrile. Currently seen on FiO2 45% with tidal volume of 550 with PEEP of 10. Saturating well. During the day transitioned over to MMV mode. Currently on examination only on fentanyl of 25. Versed have been stopped for sedation vacation. Appreciate urine output. Has remained hemodynamically stable. Seen with family member at bedside. Vitals/I&O/Wt Last Vital Signs Temp 99.4 F 06/30/24 12:30 Pulse 78 06/30/24 12:30 Resp 12 06/30/24 11:52 BP 171/81 06/30/24 12:30 Pulse Ox 89 L 06/30/24 12:30 O2 Del Method Mechanical Ventilation 06/30/24 12:30 O2 Flow Rate 80 06/26/24 08:50 FiO2 40 06/30/24 11:52 06/29/24 06/30/24 06/30/24 22:59 06:59 14:59 Intake Total 264.75 / 022.532 7785.75 / 1847.717 513.833 / 513.833 Output Total 750 / 2300 1375 / 3675 1000 / 1000 Balance -485.25 / -1840.033 12.75 / -1827.283 -486.167 / -486.167 Weight last 48 hrs Weight 158.5 kg Weight 159.5 kg Physical Exam Narrative: General: Intubated, sedated, morbidly obese, HEENT: PERRLA, pupils bilaterally equal and reactive Chest: Bilateral bronchial breath sounds all over lung riddle with occasional rhonchi coarse crackles present bilaterally right more than left, fine crackles present up to mid chest bilaterally posterior more than anterior CVS: S1-S2 regular, no murmurs, no tachycardia, no gallops, no rubs Abdomen: Soft, nontender, no organomegaly, bowel sounds present Neuro: Intubated, moving all limbs Urinary Catheter Management: Mukherjee: Cath Placed During This Visit: yes Reason for Continuing Indwelling Catheter: Accurate Measurement of Urinary Output in Critically Ill Patients Urinary Catheter Date of Insertion: 06/25/24 Data 06/30/24 04:52 06/30/24 04:52 Micro: Microbiology 06/28/24 09:45 Gram Stain - Final Sputum - Endotracheal Tube Aspirate Sputum Culture - Preliminary Gram Negative Rods A&P Assessment and plan (1) Acute respiratory failure with hypoxia and hypercapnia: (2) Acute exacerbation of CHF (congestive heart failure): (3) Acute kidney injury superimposed on stage 3b chronic kidney disease: (4) COPD exacerbation: (5) Class 3 obesity with alveolar hypoventilation and body mass index (BMI) of 40.0 to 44.9 in adult: (6) Diastolic congestive heart failure, NYHA class 3: (7) Progressive pulmonary hypertension: (8) Aortic stenosis: (9) History of coronary angioplasty with insertion of stent: (10) Chronic respiratory failure with hypoxia and hypercapnia: (11) ETOH abuse: (12) Alcohol use disorder: (13) Goals of care, counseling/discussion: (14) Hypernatremia: Plan Perry Norman is a 63 yo man w/ CKDIIIB, w/COPD, chronic hypoxic respiratory failure on 5L NC, CHF, who was brought to the ED on 06/25/2024, via EMS, for increased dyspnea and increasing O2 requirement and was intubated for acute on chronic hypoxic hypercapneic respiratory failure. Acute on chronic hypoxic and hypercapnic respiratory failure: In setting of diastolic congestive heart failure exacerbation, obstructive sleep apnea, COPD with concerns for pneumonia. History of MRSA positive sputum culture. On review of chart patient has COPD and restrictive lung disease because of morbid obesity. He was prescribed home vent which he refused late last year. Intubated in the ER. Appreciate ABG. Increase IV E/A ratio to 1.2. Try to wean FiO2 keeping saturation over 85 to 88%. Continue with current tidal volume. Currently on 100% FiO2. Increase PEEP to 10. Aggressive pulmonary toilet with chest vest. If not improving in next 24 hours can plan for proning with as needed rocuronium. If oxygen requirements continue to remain high or worsening even after proning will plan to discuss with family regarding potential transfer to a tertiary center where eyeglass lens cutter or educational/development assistant is available. Continue sedation with fentanyl and Versed. Target PCO2 of around 60-65. Repeat ABG in afternoon. Sputum culture growing coag positive staph. Oxygen supplementation keeping saturation over 88%. Continue with Solu-Medrol 40 mg every 8 hourly. Pulmicort twice daily, DuoNeb every 4 hours. Follow-up sputum culture, blood culture, urine culture. Urine cultures so far growing, hemolytic strep. Negative bacterial urine antigen. Continue with IV vancomycin, Zosyn and azithromycin. Dose antibiotics as per creatinine clearance. Monitor Vanco trough and random levels daily. Aggressive IV diuresis. Renal function slightly worsening today. Good urine response otherwise. Continue with IV Lasix 60 mg twice daily. Watch for contraction alkalosis, electrolyte abnormalities. Hold off on metolazone. Echocardiogram done EF 50 to 55% moderate to diastolic function, moderate aortic stenosis with gradient of 18.5 across the valve AUBREY on CKD: Creatinine 1.7-2.2. Continue to monitor renal functions every 12 hourly for now. Currently stable at around 2.4. Medical reconciliation done for nephrotoxic drugs. Strict input output charting, daily weights. Appreciate CT on pelvis with no obstructive nephropathy. Hypertension: Required Levophed on presentation to the ER. Currently off pressors. Goal blood pressure 140/90 mmHg with mean over 65. On multiple antihypertensive at home. Blood pressure slightly elevated today. Start on IV hydralazine 10 mg every 6 hour as needed for systolic of more than 160. If continues to remain elevated will start on home dose of oral hydralazine and uptitrate as per home medications. Continue to monitor. History of alcohol abuse. Alcohol level and urine drug screen from admission appreciated Stage II ulcer on the planter aspect of the L. foot (below the 5th metatarsal) - F/u wound care clinic instructions. Anesthesia: Versed, fentanyl Glycemic control: Not needed. Check A1c if elevated will start on insulin sliding scale. Nutrition: N.p.o. CODE STATUS: Full code PUD prophylaxis: Protonix DVT prophylaxis: Given morbid obesity for now we will change to Lovenox 40 mg subcu every 12 hourly. Discharge planning: Depending on the clinical improvement going forward. Continue with care at ICU Goals of care discussion: Discussed in detail with patient's DPOA/sister Ms. Mcleod. Discussed unfortunately patient has significant chronic respiratory failure due to COPD, chronic smoking, restrictive lung disease, severe obstructive sleep apnea, diastolic heart failure for which he has been advised by his educational/development assistant in the past about home vent. Discussed given severe comorbidities and significantly weak lungs from the past there is a high chance of prolonged intubation or patient being ventilator dependent going forward. Sister verbalizes understanding. States patient in the past has been noncompliant and continues to smoke. She verbalizes understanding that patient might develop ventilator dependence might require prolonged intubation or even tracheostomy. She states for now if if it comes to tracheostomy patient would not have been okay with the same. She does not think patient would want any resuscitative measures including chest compressions or repeat intubation. CODE STATUS for now will be changed to DNR/DNI. We did discuss that if he remains medically stable requiring mechanical ventilation for a prolonged. There is a possibility of transfer to long-term acute care facility where they can try to wean him off ventilator slowly. Sister verbalizes understanding. 06/28: Discussed that patient is still on high FiO2. Will plan for aggressive chest vest today. If not improving can plan to proning next 24 hours. If patient continues to remain on high oxygen supplementation or worsening might have a transfer to [facility] where educational/development assistant or eyeglass lens cutter are available. Family for now agreeable. Plan for the day: Patient continues to saturate well on lesser ventilator settings now. Plan for sedation vacation today. Will plan for patient to remain on MMV mode as long as possible as patient remains hemodynamically stable. With plan to transition back to full sedation overnight for possible extubation in next 24 hours. Switch sedation from Versed to propofol. Oxygen supplementation keeping saturation over 88%. Appreciate urine culture growing Enterococcus faecalis, sputum culture growing Staphylococcus hide Giurgius. Repeat sputum culture from 06/28 growing gram-negative rods. Will follow-up culture sensitivities. For now continue with IV vancomycin and Zosyn. Renal function slightly worsening to stable. Creatinine 2.8. Does have mild uremia with BUN of 96. Hyponatremia with sodium of 148. Overall patient is 15.9 L negative. Start on D5 half NS at 100 cc/h. Recheck BMP in afternoon. Repeat ABG and chest x-ray in AM. Continue with nebulization treatment. Wean Solu-Medrol to 40 mg twice daily. Goal blood pressure less than 140/90 mmHg. Continue with home dose of hydralazine 25 mg twice daily along with IV as needed. This documentation was created by [employer] laborer pie [employer] software. Every effort was made to ensure accuracy of [employer]. Any obvious errors or omissions should be clarified with the author of the document. PDMP PDMP Reviewed: Not Reviewed Attestations Medical Necessity Statement*: Requires further hospitalization for management of acute respiratory hypoxic and hypercapnic respiratory failure in setting of COPD exacerbation, pneumonia, obstructive sleep apnea with restrictive lung disease as patient remains mechanically ventilated, AUBREY on CKD, hypernatremia with uremia Critical Care Time: The high probability of a clinically significant, sudden or life threatening deterioration of the patient's [pulmonary, cardiac, renal] system(s) required my full and direct attention, intervention and personal management. The critical care time is as shown. This time is in addition to time spent performing any reported procedures but includes the following: [x] Data and vital sign review and interpretation [x] Patient assessment, examination and intervention [x] Documentation [x] Medication orders and management Critical Care Time (min): 90 Coding Level of Care Code Critical Care >/= 30 minutes Critical care time (in minutes): 90 The high probability of a clinically significant, sudden or life threatening deterioration, as referenced in this documentation, required my full and direct attention, intervention and personal management. The critical care time shown is in addition to time spent performing any reported separately billable procedures and includes the following: [x] Data and vital sign review and interpretation [x] Patient assessment, examination and intervention [x] Medication orders and management [x] Patient/Family updates as able [x] Care Coordination and Documentation. Other Coding Information This patient has a high probability of clinically significant, sudden or life threatening deterioration of the patient's (neurological/pulmonary/cardiac/renal/ID/endocrine) systems required my full, direct attention, the highest level of physician preparedness for urgent intervention and personal management. I managed/supervised life or organ supporting interventions that required frequent physician assessment. I devoted my full attention in the ICU to the direct care of this patient for the period of time indicated above. Time I spent with family or surrogate(s) is included only if the patient was incapable of providing necessary information or participating in decision making. This time includes the following services provided: Telemetry review Mechanical Ventilation Hemodynamic interpretation, assessment and management Review and interpretation of CXR Review and interpretation of lab values Review and interpretation of microbiologic data and culture results Review of medications and administration Review and interpretation of Nutrition requirements and management Discussion of management with other consultants and services Clinical update to family members Diagnoses Acute respiratory failure with hypoxia and hypercapnia J96.01; J96.02 Acute exacerbation of CHF (congestive heart failure) I50.9 Acute kidney injury superimposed on stage 3b chronic kidney disease N17.9; N18.32 COPD exacerbation J44.1 Class 3 obesity with alveolar hypoventilation, serious comorbidity, and body mass index (BMI) of 40.0 to 44.9 in adult E66.2; Z68.41 Serious obesity comorbidity presence: with serious comorbidity Chronic diastolic congestive heart failure, NYHA class 3 I50.32 Congestive heart failure chronicity: chronic Progressive pulmonary hypertension I27.20 Nonrheumatic aortic valve stenosis I35.0 History of coronary angioplasty with insertion of stent Z95.5 Chronic respiratory failure with hypoxia and hypercapnia J96.11; J96.12 ETOH abuse F10.10 Alcohol use disorder F10.90 Goals of care, counseling/discussion Z71.89 Hypernatremia E87.0
[2024-06-30 15:51] LABS: Anion Gap 15.2 (5-19); Calcium 7.7 mg/dL (8.5-10.5); Carbon Dioxide 31 mmol/L (22-29); Chloride 95 mmol/L (98-107); Creatinine Clr Calc Pharmacy 51.1287; Glomerular Filtration Rate 28.9 mL/min (90-130); Osmolality Calculated 345 mOsm/kg (285-295); Potassium 3.2 mmol/L (3.5-5.1); Sodium 138 mmol/L (136-145)
[2024-06-30 15:53] LABS: Blood Urea Nitrogen 83 mg/dL (8-23)
[2024-06-30 15:54] LABS: Glucose 716 mg/dL (65-115)
[2024-06-30] MEDS: propofol 1,000 MG/100 ML INJ 4.76 MG IV (16:21)
[2024-06-30 16:34] LABS: Glucose 177 mg/dL (65-115); Sodium 145 mmol/L (136-145)
--- NOTE | 2024-06-30 16:55 | PC.NURSE ---
Approximately 1620 patient began feeling as if he could not breathe on CPAP mode, RT notified and to room to assess patient. RT placed patient back on VC-AC. Patients son at bedside. Patient expressing desire to have ET tube removed, began having anxiety, began moving about in bed. Sedation started per MAR for patient comfort. Per Dr. Truong weaning trial to begin again in AM with plans to extubate as patient tolerates.
[2024-06-30 18:20] LABS: Glucose Point of Care 166 mg/dL (70-110)
[2024-06-30 19:54] LABS: Glucose Point of Care 164 mg/dL (70-110)
[2024-06-30] MEDS: sennosides 8.6 mg Tablet 17.2 MG PO (20:26)
[2024-06-30] MEDS: propofol 1,000 MG/100 ML INJ 19.02 MG IV (21:14)
[2024-07-01] VITALS (112 sets, daily range): BP systolic 133–205; BP diastolic 58–107; PULSE 67–89; RESP 12–25; TEMP 37.1–37.5; O2SAT 87–93; BMI 47.7
[2024-07-01] MEDS: fentaNYL 1,000 MCG/100 ML BAG 5 MCG IV (00:39)
[2024-07-01 00:56] LABS: Glucose Point of Care 178 mg/dL (70-110)
[2024-07-01] MEDS: insulin lispro 100 unit/1 mL SUBCUT ×4 (01:52→20:46)
[2024-07-01] MEDS: propofol 1,000 MG/100 ML INJ 19.02 MG IV ×2 (02:10→07:44)
[2024-07-01] MEDS: ipratropium-albuterol 3 mL Neb INHALATION ×6 (04:41→23:35)
[2024-07-01 05:15] LABS: Basophils % 0.1 %; Lymphocytes # 2.3 10^3/uL (0.8-4.8); Lymphocytes % 24.8 %; Mean Corpuscular Hemoglobin 27.2 pg (27-33); Mean Corpuscular Volume 97.1 fl (82-101); Mean Platelet Volume 9.8 fL (7.4-10.4); Monocytes # 0.9 10^3/uL (0.2-0.9); Monocytes % 9.9 %; Neutrophils % 64.9 %; Nucleated Red Blood Cells % 0 %; Platelet Count 142 10^3/cmm (157-399); Red Blood Count 5.77 10^6/uL (3.85-5.65); Red Cell Distribution Width 19.7 % (12.1-15.1); White Blood Count 9.25 10^3/uL (3.29-11.43)
[2024-07-01 05:19] LABS: ABG PH Result 7.45 (7.35-7.45); Arterial Blood Gas Hematocrit 51.1 % (42-52); Base Excess ABG 13.7 mmol/L (-2.0-2.0); Blood Gas Operator Identificat SAM; Blood Gas Sample Site Brachial, left; Blood Gas Sample Type Arterial; Blood Gas Tidal Volume 0.55; Carboxyhemoglobin 0.9 %THgb (0.4-20.1); HCO3 ABG 41.2 mmol/L (22-26); Ionized Calcium Level - ABG 1.3 mmol/L (1.1-1.4); Oxygen Device VENT; Oxygen Saturation ABG 90.8; PO2 ABG 64.8 mmHg (80.0-100.0); PO2 FiO2 Ratio Arterial Blood 162; Potassium Level - ABG 3.5 mmol/L (3.5-5.0); Total Hemoglobin 16.7 g/dL (14-18)
[2024-07-01 05:21] LABS: ABG PCO2 60.1 mmHg (35-45)
[2024-07-01 05:36] LABS: Alanine Aminotransferase 10 U/L (0-41); Albumin Level 3.8 g/dL (3.5-5.2); Alkaline Phosphatase 80 U/L (40-130); Calcium 9.4 mg/dL (8.5-10.5); Carbon Dioxide 34 mmol/L (22-29); Chloride 100 mmol/L (98-107); Creatinine Clr Calc Pharmacy 53.4528; Globulin 2.4 g/dL (1.3-4.6); Glomerular Filtration Rate 30.4 mL/min (90-130); Glucose 155 mg/dL (65-115); Magnesium 3.3 mg/dL (1.7-2.3); Osmolality Calculated 334 mOsm/kg (285-295); Phosphorus 3.8 mg/dL (2.5-4.5); Sodium 147 mmol/L (136-145); Total Bilirubin 0.9 mg/dL (0.15-1.2); Total Protein 6.2 g/dL (6.6-8.7)
[2024-07-01] MEDS: enoxaparin 40 mg/0.4 mL Syringe SUBCUT ×2 (05:36→18:25)
[2024-07-01] MEDS: piperacillin-tazobactam 3.375 GM in sodium chloride 0.9% (plus) 50 ML IV ×3 (05:36→21:07)
[2024-07-01] MEDS: pantoprazole 40 mg SDV IVP (05:36)
[2024-07-01] MEDS: methylPREDNISolone sod succ 40 mg/mL INJ IVP ×2 (05:37→18:25)
[2024-07-01 05:40] LABS: Vancomycin Random 8.5 ug/mL (20.0-40.0)
[2024-07-01 05:58] LABS: Anion Gap 17.1 (5-19); Blood Urea Nitrogen 88 mg/dL (8-23); Potassium 4.1 mmol/L (3.5-5.1)
--- NOTE | 2024-07-01 06:00 | XRR_ITS ---
PROCEDURE INFORMATION: Exam: XR Chest Exam date and time: 07/01/2024 5:53 AM Age: 63 years old Clinical indication: Device placement; Ett placement (vent status); Additional info: Intubated TECHNIQUE: Imaging protocol: Radiologic exam of the chest. Views: 1 view. COMPARISON: CR (CHEST, ) 06/30/2024 10:14 AM FINDINGS: Tubes, catheters and devices: The endotracheal tube terminates 5 cm above the andres. Gastric tube terminates in the stomach. Lungs: Bibasilar pulmonary infiltrates. Bilateral pulmonary infiltrates, the degree of opacity increasing on the left side. Pleural spaces: Unremarkable. No pleural effusion. No pneumothorax. Heart/Mediastinum: Unremarkable. No cardiomegaly. Bones/joints: Posterior lower cervical and upper thoracic fusion. XR/XR chest 1V portable [id number] IMPRESSION: 1. Intubation. 2. Increasing opacity on the left.
[2024-07-01 06:41] LABS: Glucose Point of Care 149 mg/dL (70-110)
[2024-07-01 07:16] LABS: Aspartate Amino Transferase 13 U/L (0-40)
[2024-07-01] MEDS: budesonide 0.5 mg/2 mL Neb INHALATION ×2 (07:28→20:19)
[2024-07-01] MEDS: dextrose 5%-sod chloride 0.45% 1,000 ML 100 ML IV (07:44)
--- NOTE | 2024-07-01 08:00 | PC.NURSE ---
Waste note: 06/30/2024 Wast of remaining versed with charge nurse Mitchell GIORDANO.
[2024-07-01 08:18] LABS: Glucose Point of Care 176 mg/dL (70-110)
[2024-07-01] MEDS: tamsulosin 0.4 mg Capsule PO ×2 (08:58→18:25)
[2024-07-01] MEDS: hyDRALAzine 25 mg Tablet PO (08:58)
[2024-07-01] MEDS: nicotine 14 mg Patch 1 PATCH TRANSDERMA (08:58)
[2024-07-01] MEDS: thiamine 100 mg/mL 2mL SDV IVP (08:58)
[2024-07-01] MEDS: BuSPIRONE 10 mg Tablet PO ×3 (08:58→20:25)
[2024-07-01] MEDS: docusate sodium 100 mg Capsule 200 MG PO (08:58)
[2024-07-01] MEDS: fluoxetine 20 mg Capsule 60 MG PO (08:58)
[2024-07-01] MEDS: finasteride 5 mg Tablet PO (08:58)
[2024-07-01] MEDS: gabapentin 300 mg Capsule PO ×2 (08:58→18:25)
[2024-07-01] MEDS: dexmedeTOMIDine 0.9 % NaCL 400 MCG/100 ML PREMIX IV (09:32)
[2024-07-01] MEDS: hyDRALAzine 20 mg/mL INJ 1 mL 10 MG IVP ×3 (10:08→20:24)
--- NOTE | 2024-07-01 11:35 | PC.NURSE ---
bp 205/104 dr varela gave order for clonidine 0.1 patch. sedation weaned per, plan to attempt to extubate today
--- NOTE | 2024-07-01 11:51 | PC.SOCIAL ---
IMM Updated Updated pt's family on IMM. No questions voiced. Provided pt a copy. Initialed, dated, & timed copy in chart.
--- NOTE | 2024-07-01 12:51 | P.PN_ITS ---
Subjective 2 Subjective: No acute events overnight. Patient has remained hemodynamically stable and afebrile. Overnight has remained on FiO2 of 45% with tidal volume of 550 and PEEP of 8. Imaging appreciated. 2 mm examination sedation was turned down. Fentanyl of 12.5, Precedex of 0.6. Patient will slowly transition from pressure support of 12 down to 10. ABG was done and was eventually extubated at around 3 PM to BiPAP. Blood pressures during weaning trial were elevated but settled down after extubation. Seen with family members at bedside. Vitals/I&O/Wt Last Vital Signs Temp 98.8 F 07/01/24 04:45 Pulse 79 07/01/24 11:10 Resp 14 07/01/24 11:00 BP 192/97 07/01/24 10:00 Pulse Ox 90 07/01/24 11:00 O2 Del Method Mechanical Ventilation 07/01/24 11:00 O2 Flow Rate 80 06/26/24 08:50 FiO2 40 07/01/24 11:00 06/30/24 07/01/24 07/01/24 22:59 06:59 14:59 Intake Total 1241.417 / 1755.250 215.417 / 3653.032 6351.714 / 1127.714 Output Total 1250 / 2250 1650 / 3900 Balance -8.583 / -494.750 -1434.583 / -6855.913 7954.714 / 1127.714 Weight last 48 hrs Weight 159.5 kg Weight 158.5 kg Physical Exam 2 Narrative: General: Intubated, on sedation, awake and alert, following directions morbidly obese, HEENT: PERRLA, pupils bilaterally equal and reactive Chest: Bilateral bronchial breath sounds all over lung riddle with occasional rhonchi coarse crackles present bilaterally right more than left, fine crackles present up to mid chest bilaterally posterior more than anterior CVS: S1-S2 regular, no murmurs, no tachycardia, no gallops, no rubs Abdomen: Soft, nontender, no organomegaly, bowel sounds present Neuro: Intubated, moving all limbs, following directions Urinary Catheter Management: Mukherjee: Cath Placed During This Visit: yes Reason for Continuing Indwelling Catheter: Accurate Measurement of Urinary Output in Critically Ill Patients Urinary Catheter Date of Insertion: 06/25/24 Data 07/02/24 04:01 07/02/24 04:01 Micro: Microbiology 06/25/24 19:12 Blood Culture - Final Blood NO GROWTH AFTER 5 DAYS 06/25/24 17:40 Blood Culture - Final Blood NO GROWTH AFTER 5 DAYS 06/28/24 09:45 Gram Stain - Final Sputum - Endotracheal Tube Aspirate Sputum Culture - Final Serratia marcescens A&P Assessment and plan (1) Acute respiratory failure with hypoxia and hypercapnia: (2) Acute exacerbation of CHF (congestive heart failure): (3) Acute kidney injury superimposed on stage 3b chronic kidney disease: (4) COPD exacerbation: (5) Class 3 obesity with alveolar hypoventilation and body mass index (BMI) of 40.0 to 44.9 in adult: (6) Diastolic congestive heart failure, NYHA class 3: (7) Progressive pulmonary hypertension: (8) Aortic stenosis: (9) History of coronary angioplasty with insertion of stent: (10) Chronic respiratory failure with hypoxia and hypercapnia: (11) ETOH abuse: (12) Alcohol use disorder: (13) Goals of care, counseling/discussion: (14) Hypernatremia: Plan Perry Norman is a 63 yo man w/ CKDIIIB, w/COPD, chronic hypoxic respiratory failure on 5L NC, CHF, who was brought to the ED on 06/25/2024, via EMS, for increased dyspnea and increasing O2 requirement and was intubated for acute on chronic hypoxic hypercapneic respiratory failure. Acute on chronic hypoxic and hypercapnic respiratory failure: In setting of diastolic congestive heart failure exacerbation, obstructive sleep apnea, COPD with concerns for pneumonia. History of MRSA positive sputum culture. On review of chart patient has COPD and restrictive lung disease because of morbid obesity. He was prescribed home vent which he refused late last year. Intubated in the ER. Appreciate ABG. Increase IV E/A ratio to 1.2. Try to wean FiO2 keeping saturation over 85 to 88%. Continue with current tidal volume. Currently on 100% FiO2. Increase PEEP to 10. Aggressive pulmonary toilet with chest vest. If not improving in next 24 hours can plan for proning with as needed rocuronium. If oxygen requirements continue to remain high or worsening even after proning will plan to discuss with family regarding potential transfer to a tertiary center where roving carrier or chocolate finisher operator is available. Continue sedation with fentanyl and Versed. Target PCO2 of around 60-65. Repeat ABG in afternoon. Sputum culture growing coag positive staph. Oxygen supplementation keeping saturation over 88%. Continue with Solu-Medrol 40 mg every 8 hourly. Pulmicort twice daily, DuoNeb every 4 hours. Follow-up sputum culture, blood culture, urine culture. Urine cultures so far growing, hemolytic strep. Negative bacterial urine antigen. Continue with IV vancomycin, Zosyn and azithromycin. Dose antibiotics as per creatinine clearance. Monitor Vanco trough and random levels daily. Aggressive IV diuresis. Renal function slightly worsening today. Good urine response otherwise. Continue with IV Lasix 60 mg twice daily. Watch for contraction alkalosis, electrolyte abnormalities. Hold off on metolazone. Echocardiogram done EF 50 to 55% moderate to diastolic function, moderate aortic stenosis with gradient of 18.5 across the valve AUBREY on CKD: Creatinine 1.7-2.2. Continue to monitor renal functions every 12 hourly for now. Currently stable at around 2.4. Medical reconciliation done for nephrotoxic drugs. Strict input output charting, daily weights. Appreciate CT on pelvis with no obstructive nephropathy. Hypertension: Required Levophed on presentation to the ER. Currently off pressors. Goal blood pressure 140/90 mmHg with mean over 65. On multiple antihypertensive at home. Blood pressure slightly elevated today. Start on IV hydralazine 10 mg every 6 hour as needed for systolic of more than 160. If continues to remain elevated will start on home dose of oral hydralazine and uptitrate as per home medications. Continue to monitor. History of alcohol abuse. Alcohol level and urine drug screen from admission appreciated Stage II ulcer on the planter aspect of the L. foot (below the 5th metatarsal) - F/u wound care clinic instructions. Anesthesia: Fentanyl, Precedex Glycemic control: Not needed. Check A1c if elevated will start on insulin sliding scale. Nutrition: N.p.o. CODE STATUS: Full code PUD prophylaxis: Protonix DVT prophylaxis: Given morbid obesity for now we will change to Lovenox 40 mg subcu every 12 hourly. Discharge planning: Depending on the clinical improvement going forward. Continue with care at ICU Goals of care discussion: Discussed in detail with patient's DPOA/sister Ms. Mcleod. Discussed unfortunately patient has significant chronic respiratory failure due to COPD, chronic smoking, restrictive lung disease, severe obstructive sleep apnea, diastolic heart failure for which he has been advised by his chocolate finisher operator in the past about home vent. Discussed given severe comorbidities and significantly weak lungs from the past there is a high chance of prolonged intubation or patient being ventilator dependent going forward. Sister verbalizes understanding. States patient in the past has been noncompliant and continues to smoke. She verbalizes understanding that patient might develop ventilator dependence might require prolonged intubation or even tracheostomy. She states for now if if it comes to tracheostomy patient would not have been okay with the same. She does not think patient would want any resuscitative measures including chest compressions or repeat intubation. CODE STATUS for now will be changed to DNR/DNI. We did discuss that if he remains medically stable requiring mechanical ventilation for a prolonged. There is a possibility of transfer to long-term acute care facility where they can try to wean him off ventilator slowly. Sister verbalizes understanding. 06/28: Discussed that patient is still on high FiO2. Will plan for aggressive chest vest today. If not improving can plan to proning next 24 hours. If patient continues to remain on high oxygen supplementation or worsening might have a transfer to [facility] where chocolate finisher operator or roving carrier are available. Family for now agreeable. Plan for the day: Weaning trial and plan for extubation after repeat ABG on pressure support of 10 later in the day. Will plan to extubate to BiPAP. Possibly keep on BiPAP overnight with Precedex drip. Follow-up culture results. So far urine culture growing Enterococcus, sputum culture growing gram-negative rods and staph hycus. Continue with current dose of IV vancomycin and Zosyn. Will plan to finish at least 5 to 7-day course of antibiotics. Hypernatremia resolving. Hold off on IV fluids for now given possibility of extubation later in the day. Hold off on diuresis. Repeat BMP in afternoon. Goal blood pressure less than 140/90 mmHg. Increase hydralazine to 50 mg 3 times daily. Add clonidine patch 0.1 mg. IV hydralazine 10 mg every 4 hours as needed for systolic of more than 160 mmHg. Continue nebulization treatment. Hold Solu-Medrol 40 mg Q12 hourly for now. 24 hours postextubation plan of PT OT and speech evaluation advancing diet accordingly. This documentation was created by [employer] supervisor cartography software. Every effort was made to ensure accuracy of supervisor cartography. Any obvious errors or omissions should be clarified with the author of the document. PDMP PDMP Reviewed: Not Reviewed Attestations 2 Medical Necessity Statement*: Requires further hospitalization for acute on chronic hypoxic and hypercapnic respiratory failure as patient undergoes weaning trial of mechanical ventilation in setting of COPD, serial lung disease from obstructive sleep apnea, pneumonia, CKD, hypernatremia Critical Care Time: The high probability of a clinically significant, sudden or life threatening deterioration of the patient's [pulmonary, cardiac, renal] system(s) required my full and direct attention, intervention and personal management. The critical care time is as shown. This time is in addition to time spent performing any reported procedures but includes the following: [x] Data and vital sign review and interpretation [x] Patient assessment, examination and intervention [x] Documentation [x] Medication orders and management Critical Care Time (min): 90 Coding Level of Care Code Critical Care >/= 30 minutes Critical care time (in minutes): 90 The high probability of a clinically significant, sudden or life threatening deterioration, as referenced in this documentation, required my full and direct attention, intervention and personal management. The critical care time shown is in addition to time spent performing any reported separately billable procedures and includes the following: [x] Data and vital sign review and interpretation [x ] Patient assessment, examination and intervention [x] Medication orders and management [x] Patient/Family updates as able [x] Care Coordination and Documentation. Other Coding Information This patient has a high probability of clinically significant, sudden or life threatening deterioration of the patient's (neurological/pulmonary/cardiac/renal/ID/endocrine) systems required my full, direct attention, the highest level of physician preparedness for urgent intervention and personal management. I managed/supervised life or organ supporting interventions that required frequent physician assessment. I devoted my full attention in the ICU to the direct care of this patient for the period of time indicated above. Time I spent with family or surrogate(s) is included only if the patient was incapable of providing necessary information or participating in decision making. This time includes the following services provided: Telemetry review Mechanical Ventilation Hemodynamic interpretation, assessment and management Review and interpretation of CXR Review and interpretation of lab values Review and interpretation of microbiologic data and culture results Review of medications and administration Review and interpretation of Nutrition requirements and management Discussion of management with other consultants and services Clinical update to family members Diagnoses Acute respiratory failure with hypoxia and hypercapnia J96.01; J96.02 Acute exacerbation of CHF (congestive heart failure) I50.9 Acute kidney injury superimposed on stage 3b chronic kidney disease N17.9; N18.32 COPD exacerbation J44.1 Class 3 obesity with alveolar hypoventilation, serious comorbidity, and body mass index (BMI) of 40.0 to 44.9 in adult E66.2; Z68.41 Serious obesity comorbidity presence: with serious comorbidity Chronic diastolic congestive heart failure, NYHA class 3 I50.32 Congestive heart failure chronicity: chronic Progressive pulmonary hypertension I27.20 Nonrheumatic aortic valve stenosis I35.0 History of coronary angioplasty with insertion of stent Z95.5 Chronic respiratory failure with hypoxia and hypercapnia J96.11; J96.12 ETOH abuse F10.10 Alcohol use disorder F10.90 Goals of care, counseling/discussion Z71.89 Hypernatremia E87.0
[2024-07-01] MEDS: cloNIDine 0.1 mg/24 hr Patch 1 PATCH TRANSDERMA (13:05)
[2024-07-01 13:12] LABS: Glucose Point of Care 149 mg/dL (70-110)
--- NOTE | 2024-07-01 13:30 | PC.NURSE ---
Plan per Dr. Truong to leave patient intubated overnight and to use sedation to allow patient to rest overnight to allow the patient to be able to be breath better volumes and be extubated tomorrow
[2024-07-01] MEDS: VANCOMYCIN ADD-Vantage 1,000 MG in 0.9% NaCl ADD-Vantage 250 ML 250 MG IV (14:13)
[2024-07-01 14:20] LABS: ABG PCO2 54.1 mmHg (35-45); ABG PH Result 7.49 (7.35-7.45); Arterial Blood Gas Hematocrit 56.4 % (42-52); Base Excess ABG 14.1 mmol/L (-2.0-2.0); Blood Gas Allen Test Pos; Blood Gas Sample Type Arterial; Carboxyhemoglobin 0.8 %THgb (0.4-20.1); HCO3 ABG 40.9 mmol/L (22-26); HGB O2 Sat 89.6 % (95-100); Ionized Calcium Level - ABG 1.3 mmol/L (1.1-1.4); Methemoglobin 0.1 % (0.4-1.5); Oxygen Saturation ABG 90.5; PO2 ABG 65.7 mmHg (80.0-100.0); Potassium Level - ABG 3.8 mmol/L (3.5-5.0); Total Hemoglobin 18.4 g/dL (14-18)
[2024-07-01 14:21] LABS: Alveolar-Arterial Oxygen Gradi 19.7 mmHg (5-10); Blood Gas Operator Identificat GD; Blood Gas Sample Site Radial, left; Oxygen Device VENT; PO2 FiO2 Ratio Arterial Blood 164
[2024-07-01] MEDS: dexmedeTOMIDine 0.9 % NaCL 400 MCG/100 ML PREMIX 15.95 MCG IV ×2 (15:03→22:14)
--- NOTE | 2024-07-01 15:50 | PC.NURSE ---
[facility]
[2024-07-01] MEDS: mirtazapine 15 mg Tablet PO (20:25)
[2024-07-01] MEDS: sennosides 8.6 mg Tablet 17.2 MG PO (20:25)
[2024-07-01 20:43] LABS: Glucose Point of Care 177 mg/dL (70-110)
[2024-07-01] MEDS: chlorhexidine gluconate 4% Btl 118 mL 1 APPLIC TOPICAL (20:47)
--- NOTE | 2024-07-01 21:14 | PC.NURSE ---
Addendum entered by Erin Singh RN 07/01/24 21:56: 2055 Keith Singh and trish oh wasted 69 mls of propofol and 65 mls of fentanyl in drug buster Original Note: 2044 KEITH singh noticed fentanyl was not stopped on the apr. RN recorded stop at 1900.
[2024-07-02] VITALS (70 sets, daily range): BP systolic 84–189; BP diastolic 63–99; PULSE 68–110; RESP 17–21; TEMP 36.8; O2SAT 84–94
[2024-07-02] MEDS: insulin lispro 100 unit/1 mL SUBCUT ×4 (02:21→20:40)
[2024-07-02 02:22] LABS: Glucose Point of Care 157 mg/dL (70-110)
[2024-07-02] MEDS: ipratropium-albuterol 3 mL Neb INHALATION ×5 (04:21→20:25)
[2024-07-02] MEDS: hyDRALAzine 20 mg/mL INJ 1 mL 10 MG IVP (04:29)
[2024-07-02 04:58] LABS: ABG PH Result 7.45 (7.35-7.45); Alveolar-Arterial Oxygen Gradi 19.6 mmHg (5-10); Arterial Blood Gas Hematocrit 55.9 % (42-52); Base Excess ABG 11.4 mmol/L (-2.0-2.0); Blood Gas Allen Test Pos; Blood Gas Operator Identificat SAM; Blood Gas Sample Site Radial, right; Blood Gas Sample Type Arterial; Carboxyhemoglobin 0.9 %THgb (0.4-20.1); HCO3 ABG 38.4 mmol/L (22-26); HGB O2 Sat 89.1 % (95-100); Ionized Calcium Level - ABG 1.3 mmol/L (1.1-1.4); Methemoglobin 0.6 % (0.4-1.5); Oxygen Device BIPAP; Oxygen Saturation ABG 90.4; PO2 ABG 64.1 mmHg (80.0-100.0); PO2 FiO2 Ratio Arterial Blood 160; Potassium Level - ABG 3.7 mmol/L (3.5-5.0); Total Hemoglobin 18.3 g/dL (14-18)
[2024-07-02] MEDS: piperacillin-tazobactam 3.375 GM in sodium chloride 0.9% (plus) 50 ML IV ×3 (05:09→20:59)
[2024-07-02] MEDS: pantoprazole 40 mg SDV IVP (05:10)
[2024-07-02] MEDS: methylPREDNISolone sod succ 40 mg/mL INJ IVP ×2 (05:10→17:34)
[2024-07-02] MEDS: enoxaparin 40 mg/0.4 mL Syringe SUBCUT ×2 (05:10→17:34)
[2024-07-02 05:18] LABS: Basophils % 0.1 %; Hematocrit 59.9 % (37-53); Lymphocytes # 2.1 10^3/uL (0.8-4.8); Lymphocytes % 21.9 %; Mean Corpuscular HGB Conc 28.5 g/dL (30-55); Mean Corpuscular Hemoglobin 27.4 pg (27-33); Mean Corpuscular Volume 95.8 fl (82-101); Monocytes # 0.8 10^3/uL (0.2-0.9); Monocytes % 8.1 %; Neutrophils # 6.71 10^3/uL (1.8-7.7); Neutrophils % 69.5 %; Nucleated Red Blood Cells % 0 %; Platelet Count 116 10^3/cmm (157-399); Red Blood Count 6.25 10^6/uL (3.85-5.65); Red Cell Distribution Width 19.6 % (12.1-15.1); White Blood Count 9.65 10^3/uL (3.29-11.43)
[2024-07-02 05:43] LABS: Alanine Aminotransferase 14 U/L (0-41); Albumin Level 3.8 g/dL (3.5-5.2); Alkaline Phosphatase 83 U/L (40-130); Aspartate Amino Transferase 16 U/L (0-40); Blood Urea Nitrogen 73 mg/dL (8-23); Calcium 9.9 mg/dL (8.5-10.5); Carbon Dioxide 33 mmol/L (22-29); Chloride 104 mmol/L (98-107); Creatinine Clr Calc Pharmacy 59.0119; Glomerular Filtration Rate 33.9 mL/min (90-130); Glucose 128 mg/dL (65-115); Osmolality Calculated 331 mOsm/kg (285-295); Sodium 149 mmol/L (136-145); Total Bilirubin 1.3 mg/dL (0.15-1.2); Total Protein 6.8 g/dL (6.6-8.7)
[2024-07-02 05:54] LABS: Magnesium 2.9 mg/dL (1.7-2.3); Phosphorus 4.1 mg/dL (2.5-4.5)
--- NOTE | 2024-07-02 06:00 | XRR_ITS ---
PROCEDURE INFORMATION: Exam: XR Chest Exam date and time: 07/02/2024 7:01 AM Age: 63 years old Clinical indication: Device placement; Ett placement (vent status); Additional info: Intubated TECHNIQUE: Imaging protocol: Radiologic exam of the chest. Views: 1 view. COMPARISON: CR XR chest 1V portable [id number] 07/01/2024 5:53 AM FINDINGS: Tubes, catheters and devices: The endotracheal tube present previously is not visible on this study. Lungs: Unchanged bibasilar pulmonary infiltrates. Pleural spaces: Unremarkable. No pleural effusion. No pneumothorax. Heart/Mediastinum: No change in the heart or mediastinum. Bones/joints: Evidence of prior lower cervical and upper thoracic spinal fusion. XR/XR chest 1V portable [id number] IMPRESSION: The endotracheal tube is not visible on this study.
[2024-07-02 07:50] LABS: Glucose Point of Care 157 mg/dL (70-110)
[2024-07-02] MEDS: BuSPIRONE 10 mg Tablet PO ×3 (08:05→20:26)
[2024-07-02] MEDS: ATORVASTATIN 10 MG TABLET PO (08:05)
[2024-07-02] MEDS: docusate sodium 100 mg Capsule 200 MG PO (08:05)
[2024-07-02] MEDS: finasteride 5 mg Tablet PO (08:05)
[2024-07-02] MEDS: fluoxetine 20 mg Capsule 60 MG PO (08:05)
[2024-07-02] MEDS: gabapentin 300 mg Capsule PO ×2 (08:05→17:34)
[2024-07-02] MEDS: tamsulosin 0.4 mg Capsule PO ×2 (08:05→17:34)
[2024-07-02] MEDS: nicotine 14 mg Patch 1 PATCH TRANSDERMA (08:06)
[2024-07-02] MEDS: thiamine 100 mg/mL 2mL SDV IVP (08:06)
[2024-07-02] MEDS: budesonide 0.5 mg/2 mL Neb INHALATION ×2 (08:06→20:25)
--- NOTE | 2024-07-02 11:55 | P.PN_ITS ---
Subjective 2 Subjective: Overnight patient has done well on a BiPAP ventilation. Today morning seen with family at bedside. Patient is awake and alert on BiPAP. Able to have complete conversation. During examination was taken off BiPAP and was placed on 3 L saturating more than 90%. Patient states he is hungry. AO x 3. Denies any nausea, vomiting. Vitals/I&O/Wt Last Vital Signs Temp 98.3 F 07/02/24 04:00 Pulse 77 07/02/24 11:39 Resp 20 H 07/02/24 11:39 BP 135/95 07/02/24 10:30 Pulse Ox 91 07/02/24 11:39 O2 Del Method Nasal Cannula 07/02/24 11:39 O2 Flow Rate 3 07/02/24 11:39 FiO2 40 07/02/24 08:09 07/01/24 07/02/24 07/02/24 22:59 06:59 14:59 Intake Total 1496.848 / 2683.867 148.900 / 2832.767 Output Total 1200 / 1200 1050 / 2250 Balance 296.848 / 1483.867 -901.100 / 582.767 Weight last 48 hrs Weight 156 kg Weight 159.5 kg Physical Exam 2 Narrative: General: AO x 3, no acute distress on BiPAP transition to nasal cannula HEENT: PERRLA, pupils bilaterally equal and reactive Chest: Bilateral bronchial breath sounds all over lung riddle with occasional rhonchi coarse crackles present bilaterally right more than left, fine crackles present up to mid chest bilaterally posterior more than anterior CVS: S1-S2 regular, no murmurs, no tachycardia, no gallops, no rubs Abdomen: Soft, nontender, no organomegaly, bowel sounds present Neuro: No focal deficit, moving all limbs, AO x 3 Urinary Catheter Management: Mukherjee: Cath Placed During This Visit: yes Reason for Continuing Indwelling Catheter: Accurate Measurement of Urinary Output in Critically Ill Patients Urinary Catheter Date of Insertion: 06/25/24 Data 07/02/24 04:01 07/02/24 04:01 A&P Assessment and plan (1) Acute respiratory failure with hypoxia and hypercapnia: (2) Acute exacerbation of CHF (congestive heart failure): (3) Acute kidney injury superimposed on stage 3b chronic kidney disease: (4) COPD exacerbation: (5) Class 3 obesity with alveolar hypoventilation and body mass index (BMI) of 40.0 to 44.9 in adult: (6) Diastolic congestive heart failure, NYHA class 3: (7) Progressive pulmonary hypertension: (8) Aortic stenosis: (9) History of coronary angioplasty with insertion of stent: (10) Chronic respiratory failure with hypoxia and hypercapnia: (11) ETOH abuse: (12) Alcohol use disorder: (13) Goals of care, counseling/discussion: (14) Hypernatremia: Plan Perry Norman is a 63 yo man w/ CKDIIIB, w/COPD, chronic hypoxic respiratory failure on 5L NC, CHF, who was brought to the ED on 06/25/2024, via EMS, for increased dyspnea and increasing O2 requirement and was intubated for acute on chronic hypoxic hypercapneic respiratory failure. Acute on chronic hypoxic and hypercapnic respiratory failure: In setting of diastolic congestive heart failure exacerbation, obstructive sleep apnea, COPD with concerns for pneumonia. History of MRSA positive sputum culture. On review of chart patient has COPD and restrictive lung disease because of morbid obesity. He was prescribed home vent which he refused late last year. Intubated in the ER. Extubated on 07/01 to BiPAP. Oxygen supplementation keeping saturation over 88%. Wean accordingly. BiPAP nightly as needed. Keep Solu-Medrol 40 mg every 12 hourly for now. Will wean in next 24 hours. Continue with nebulization treatment with Pulmicort twice daily and DuoNeb every 4 hour. PT/OT/speech evaluation. Advance diet accordingly. Out of bed to chair. Blood cultures so far negative, sputum culture positive for Serratia and Staphylococcus hycus. Urine culture positive for Enterococcus. Continue with IV vancomycin and Flagyl for now as per creatinine clearance. Will plan to continue at least 7-day course of IV antibiotics. Concern for diastolic heart failure. Currently patient seems euvolemic. Overall around 16.8 L negative. Patient developing mild hypernatremia and worsening of renal functions. Hold off any further diuresis. Strict input output charting, daily weights. Continue to watch for contraction alkalosis and electrolyte abnormalities. Echocardiogram done EF 50 to 55% moderate to diastolic function, moderate aortic stenosis with gradient of 18.5 across the valve AUBREY on CKD: Creatinine stable around 2. Uremia resolving. Does have hypernatremia most likely in setting of poor oral intake. Medical reconciliation done for nephrotoxic drugs. Repeat BMP in afternoon. Strict input output charting, daily weights. Appreciate CT on pelvis with no obstructive nephropathy. Hypertension: Goal blood pressure less than 140/90 mmhg. Blood pressures elevated yesterday. Better today. Continue with clonidine 0.1 mg patch for now. Will transition to oral medications once cleared by speech therapy. IV hydralazine 10 mg every 4 hours as needed for systolic of more than 160mmhg. History of alcohol abuse. Alcohol level and urine drug screen from admission appreciated Stage II ulcer on the planter aspect of the L. foot (below the 5th metatarsal) - F/u wound care clinic instructions. Analgesia:Wilmot 5 mg PO Q6h PRn Glycemic control: A1c 6.6. Low-dose protocol every 6 hours Nutrition: N.p.o. except meds. Eventual speech evaluation. CODE STATUS: Full code PUD prophylaxis: Protonix DVT prophylaxis: Given morbid obesity for now we will change to Lovenox 40 mg subcu every 12 hourly. Discharge planning: Depending on the clinical improvement going forward. Continue with care at ICU Goals of care discussion: Discussed in detail with patient's DPOA/sister Ms. Mcleod. Discussed unfortunately patient has significant chronic respiratory failure due to COPD, chronic smoking, restrictive lung disease, severe obstructive sleep apnea, diastolic heart failure for which he has been advised by his guest laundry attendant in the past about home vent. Discussed given severe comorbidities and significantly weak lungs from the past there is a high chance of prolonged intubation or patient being ventilator dependent going forward. Sister verbalizes understanding. States patient in the past has been noncompliant and continues to smoke. She verbalizes understanding that patient might develop ventilator dependence might require prolonged intubation or even tracheostomy. She states for now if if it comes to tracheostomy patient would not have been okay with the same. She does not think patient would want any resuscitative measures including chest compressions or repeat intubation. CODE STATUS for now will be changed to DNR/DNI. We did discuss that if he remains medically stable requiring mechanical ventilation for a prolonged. There is a possibility of transfer to long-term acute care facility where they can try to wean him off ventilator slowly. Sister verbalizes understanding. 06/28: Discussed that patient is still on high FiO2. Will plan for aggressive chest vest today. If not improving can plan to proning next 24 hours. If patient continues to remain on high oxygen supplementation or worsening might have a transfer to [facility] where guest laundry attendant or operating room registered nurse are available. Family for now agreeable. 07/01: Discussed goals of care with patient in detail once he was awake and alert at baseline mentation. He wants to be full code. He is okay with chest compression or being on ventilator again if needed. CODE STATUS changed to full code. This documentation was created by [employer] hand clerical verifier software. Every effort was made to ensure accuracy of hand clerical verifier. Any obvious errors or omissions should be clarified with the author of the document. PDMP PDMP Reviewed: Not Reviewed Attestations 2 Medical Necessity Statement*: Requested hospitalization for management of acute on chronic hypoxic and hypercapnic respiratory failure postextubation, CKD while diet is gradually advanced Diagnoses Acute respiratory failure with hypoxia and hypercapnia J96.01; J96.02 Acute exacerbation of CHF (congestive heart failure) I50.9 Acute kidney injury superimposed on stage 3b chronic kidney disease N17.9; N18.32 COPD exacerbation J44.1 Class 3 obesity with alveolar hypoventilation, serious comorbidity, and body mass index (BMI) of 40.0 to 44.9 in adult E66.2; Z68.41 Serious obesity comorbidity presence: with serious comorbidity Chronic diastolic congestive heart failure, NYHA class 3 I50.32 Congestive heart failure chronicity: chronic Progressive pulmonary hypertension I27.20 Nonrheumatic aortic valve stenosis I35.0 History of coronary angioplasty with insertion of stent Z95.5 Chronic respiratory failure with hypoxia and hypercapnia J96.11; J96.12 ETOH abuse F10.10 Alcohol use disorder F10.90 Goals of care, counseling/discussion Z71.89 Hypernatremia E87.0
[2024-07-02 14:06] LABS: Vancomycin Trough 8.3 ug/mL (10-15)
[2024-07-02] MEDS: VANCOMYCIN ADD-Vantage 1,000 MG in 0.9% NaCl ADD-Vantage 250 ML 250 MG IV (15:00)
[2024-07-02 17:26] LABS: Glucose Point of Care 190 mg/dL (70-110)
[2024-07-02] MEDS: HYDROcodone-acetaminophen 5-325 mg Tablet 1 TAB PO (17:43)
[2024-07-02 18:07] LABS: Anion Gap 17.5 (5-19); Blood Urea Nitrogen 74 mg/dL (8-23); Calcium 9.7 mg/dL (8.5-10.5); Carbon Dioxide 29 mmol/L (22-29); Chloride 101 mmol/L (98-107); Creatinine Clr Calc Pharmacy 55.4889; Glomerular Filtration Rate 32.1 mL/min (90-130); Glucose 163 mg/dL (65-115); Osmolality Calculated 323 mOsm/kg (285-295); Potassium 3.5 mmol/L (3.5-5.1); Sodium 144 mmol/L (136-145)
[2024-07-02] MEDS: mirtazapine 15 mg Tablet PO (20:26)
[2024-07-02] MEDS: sennosides 8.6 mg Tablet 17.2 MG PO (20:26)
[2024-07-02] MEDS: chlorhexidine gluconate 4% Btl 118 mL 1 APPLIC TOPICAL (20:27)
[2024-07-02 20:40] LABS: Glucose Point of Care 211 mg/dL (70-110)
[2024-07-03] VITALS (57 sets, daily range): BP systolic 101–178; BP diastolic 48–122; PULSE 64–106; RESP 16–20; TEMP 36.6–37; O2SAT 84–98
[2024-07-03] MEDS: ipratropium-albuterol 3 mL Neb INHALATION ×6 (00:37→19:44)
[2024-07-03] MEDS: VANCOMYCIN ADD-Vantage 1,000 MG in 0.9% NaCl ADD-Vantage 250 ML 250 MG IV (02:49)
[2024-07-03 03:13] LABS: Basophils % 0.1 %; Eosinophils % 0.2 %; Hematocrit 53.2 % (37-53); Lymphocytes # 2.6 10^3/uL (0.8-4.8); Lymphocytes % 19.5 %; Mean Corpuscular HGB Conc 29.5 g/dL (30-55); Mean Corpuscular Hemoglobin 27.7 pg (27-33); Mean Platelet Volume 10.6 fL (7.4-10.4); Monocytes # 0.9 10^3/uL (0.2-0.9); Monocytes % 6.5 %; Neutrophils # 9.77 10^3/uL (1.8-7.7); Neutrophils % 73.2 %; Nucleated Red Blood Cells % 0 %; Platelet Count 122 10^3/cmm (157-399); Red Blood Count 5.66 10^6/uL (3.85-5.65); Red Cell Distribution Width 18.6 % (12.1-15.1); White Blood Count 13.33 10^3/uL (3.29-11.43)
[2024-07-03] MEDS: pantoprazole 40 mg SDV IVP (05:11)
[2024-07-03] MEDS: enoxaparin 40 mg/0.4 mL Syringe SUBCUT ×2 (05:11→17:37)
[2024-07-03] MEDS: methylPREDNISolone sod succ 40 mg/mL INJ IVP (05:11)
[2024-07-03] MEDS: piperacillin-tazobactam 3.375 GM in sodium chloride 0.9% (plus) 50 ML IV ×3 (05:12→20:09)
[2024-07-03 06:18] LABS: Alanine Aminotransferase 19 U/L (0-41); Albumin Level 3.4 g/dL (3.5-5.2); Alkaline Phosphatase 77 U/L (40-130); Anion Gap 12.4 (5-19); Aspartate Amino Transferase 22 U/L (0-40); Blood Urea Nitrogen 70 mg/dL (8-23); Calcium 9.1 mg/dL (8.5-10.5); Carbon Dioxide 32 mmol/L (22-29); Chloride 97 mmol/L (98-107); Creatinine Clr Calc Pharmacy 56.9148; Globulin 2.5 g/dL (1.3-4.6); Glomerular Filtration Rate 32.1 mL/min (90-130); Glucose 119 mg/dL (65-115); Osmolality Calculated 308 mOsm/kg (285-295); Phosphorus 4.1 mg/dL (2.5-4.5); Potassium 3.4 mmol/L (3.5-5.1); Sodium 138 mmol/L (136-145); Total Bilirubin 1.3 mg/dL (0.15-1.2); Total Protein 5.9 g/dL (6.6-8.7)
[2024-07-03] MEDS: budesonide 0.5 mg/2 mL Neb INHALATION ×2 (07:37→19:44)
[2024-07-03] MEDS: ATORVASTATIN 10 MG TABLET PO (08:25)
[2024-07-03] MEDS: tamsulosin 0.4 mg Capsule PO ×2 (08:25→17:37)
[2024-07-03] MEDS: nicotine 14 mg Patch 1 PATCH TRANSDERMA (08:25)
[2024-07-03] MEDS: finasteride 5 mg Tablet PO (08:26)
[2024-07-03] MEDS: fluoxetine 20 mg Capsule 60 MG PO (08:26)
[2024-07-03] MEDS: gabapentin 300 mg Capsule PO ×2 (08:26→17:37)
[2024-07-03] MEDS: thiamine 100 mg/mL 2mL SDV IVP (08:26)
[2024-07-03] MEDS: BuSPIRONE 10 mg Tablet PO ×3 (08:26→20:10)
[2024-07-03] MEDS: hyDRALAzine 25 mg Tablet PO (08:32)
[2024-07-03] MEDS: bumetanide 1 mg Tablet PO ×2 (10:02→17:37)
--- NOTE | 2024-07-03 12:05 | P.PN_ITS ---
Subjective 2 Subjective: No acute events overnight. Overnight patient has remained on 3 L of oxygen supplementation. Did not use his BiPAP. Seen sitting up in chair. Worked somewhat with physical therapy yesterday. Seen with family members at bedside. Denies any nausea, vomiting, headache. Vitals/I&O/Wt Last Vital Signs Temp 98.2 F 07/03/24 08:30 Pulse 96 07/03/24 11:20 Resp 18 07/03/24 11:12 BP 155/106 07/03/24 10:30 Pulse Ox 92 07/03/24 11:12 O2 Del Method Nasal Cannula 07/03/24 11:12 O2 Flow Rate 2 07/03/24 11:12 FiO2 3 07/03/24 04:00 07/02/24 07/03/24 07/03/24 22:59 06:59 14:59 Intake Total 500 / 800 1147.917 / 1947.917 946 / 946 Output Total 1300 / 1300 800 / 2100 200 / 200 Balance -800 / -500 347.917 / -152.083 746 / 746 Weight last 48 hrs Weight 163 kg Weight 156 kg Physical Exam 2 Narrative: General: AO x 3, no acute distress on nasal cannula HEENT: PERRLA, pupils bilaterally equal and reactive Chest: Bilateral bronchial breath sounds all over lung riddle with occasional rhonchi coarse crackles present bilaterally right more than left, fine crackles present up to mid chest bilaterally posterior more than anterior CVS: S1-S2 regular, no murmurs, no tachycardia, no gallops, no rubs Abdomen: Soft, nontender, no organomegaly, bowel sounds present Neuro: No focal deficit, moving all limbs, AO x 3 Urinary Catheter Management: Mukherjee: Cath Placed During This Visit: yes Reason for Continuing Indwelling Catheter: Accurate Measurement of Urinary Output in Critically Ill Patients Urinary Catheter Date of Insertion: 06/25/24 Data 07/03/24 02:41 07/03/24 04:29 A&P Assessment and plan (1) Acute respiratory failure with hypoxia and hypercapnia: (2) Acute exacerbation of CHF (congestive heart failure): (3) Acute kidney injury superimposed on stage 3b chronic kidney disease: (4) COPD exacerbation: (5) Class 3 obesity with alveolar hypoventilation and body mass index (BMI) of 40.0 to 44.9 in adult: (6) Diastolic congestive heart failure, NYHA class 3: (7) Progressive pulmonary hypertension: (8) Aortic stenosis: (9) History of coronary angioplasty with insertion of stent: (10) Chronic respiratory failure with hypoxia and hypercapnia: (11) ETOH abuse: (12) Alcohol use disorder: (13) Goals of care, counseling/discussion: (14) Hypernatremia: Joi Perry Norman is a 63 yo man w/ CKDIIIB, w/COPD, chronic hypoxic respiratory failure on 5L NC, CHF, who was brought to the ED on 06/25/2024, via EMS, for increased dyspnea and increasing O2 requirement and was intubated for acute on chronic hypoxic hypercapneic respiratory failure. Acute on chronic hypoxic and hypercapnic respiratory failure: In setting of diastolic congestive heart failure exacerbation, obstructive sleep apnea, COPD with concerns for pneumonia. History of MRSA positive sputum culture. On review of chart patient has COPD and restrictive lung disease because of morbid obesity. He was prescribed home vent which he refused late last year. Intubated in the ER. Extubated on 07/01 to BiPAP. Oxygen supplementation keeping saturation over 88%. Wean accordingly. BiPAP nightly as needed. Keep Solu-Medrol 40 mg every 12 hourly for now. Will wean in next 24 hours. Continue with nebulization treatment with Pulmicort twice daily and DuoNeb every 4 hour. PT/OT/speech evaluation. Advance diet accordingly. Out of bed to chair. Blood cultures so far negative, sputum culture positive for Serratia and Staphylococcus hycus. Urine culture positive for Enterococcus. Continue with IV vancomycin and Flagyl for now as per creatinine clearance. Will plan to continue at least 7-day course of IV antibiotics. Concern for diastolic heart failure. Currently patient seems euvolemic. Overall around 16.8 L negative. Patient developing mild hypernatremia and worsening of renal functions. Hold off any further diuresis. Strict input output charting, daily weights. Continue to watch for contraction alkalosis and electrolyte abnormalities. Echocardiogram done EF 50 to 55% moderate to diastolic function, moderate aortic stenosis with gradient of 18.5 across the valve AUBREY on CKD: Creatinine stable around 2. Uremia resolving. Does have hypernatremia most likely in setting of poor oral intake. Medical reconciliation done for nephrotoxic drugs. Repeat BMP in afternoon. Strict input output charting, daily weights. Appreciate CT on pelvis with no obstructive nephropathy. Hypertension: Goal blood pressure less than 140/90 mmhg. Blood pressures elevated yesterday. Better today. Continue with clonidine 0.1 mg patch for now. Will transition to oral medications once cleared by speech therapy. IV hydralazine 10 mg every 4 hours as needed for systolic of more than 160mmhg. History of alcohol abuse. Alcohol level and urine drug screen from admission appreciated Stage II ulcer on the planter aspect of the L. foot (below the 5th metatarsal) - F/u wound care clinic instructions. Analgesia:Flint 5 mg PO Q6h PRn Glycemic control: A1c 6.6. Low-dose protocol every 6 hours Nutrition: N.p.o. except meds. Eventual speech evaluation. CODE STATUS: Full code PUD prophylaxis: Protonix DVT prophylaxis: Given morbid obesity for now we will change to Lovenox 40 mg subcu every 12 hourly. Discharge planning: Depending on the clinical improvement going forward. Continue with care at ICU Goals of care discussion: Discussed in detail with patient's DPOA/sister Ms. Mcleod. Discussed unfortunately patient has significant chronic respiratory failure due to COPD, chronic smoking, restrictive lung disease, severe obstructive sleep apnea, diastolic heart failure for which he has been advised by his short goods drier in the past about home vent. Discussed given severe comorbidities and significantly weak lungs from the past there is a high chance of prolonged intubation or patient being ventilator dependent going forward. Sister verbalizes understanding. States patient in the past has been noncompliant and continues to smoke. She verbalizes understanding that patient might develop ventilator dependence might require prolonged intubation or even tracheostomy. She states for now if if it comes to tracheostomy patient would not have been okay with the same. She does not think patient would want any resuscitative measures including chest compressions or repeat intubation. CODE STATUS for now will be changed to DNR/DNI. We did discuss that if he remains medically stable requiring mechanical ventilation for a prolonged. There is a possibility of transfer to long-term acute care facility where they can try to wean him off ventilator slowly. Sister verbalizes understanding. 06/28: Discussed that patient is still on high FiO2. Will plan for aggressive chest vest today. If not improving can plan to proning next 24 hours. If patient continues to remain on high oxygen supplementation or worsening might have a transfer to [facility] where short goods drier or steelscope operator are available. Family for now agreeable. 07/01: Discussed goals of care with patient in detail once he was awake and alert at baseline mentation. He wants to be full code. He is okay with chest compression or being on ventilator again if needed. CODE STATUS changed to full code. Plan for the day: Oxygen supplementation keeping saturation over 88%. Wean accordingly. BiPAP/CPAP at home settings overnight. Patient is agreeable. States he uses CPAP regularly at home. Continue with nebulization treatment. Wean Solu-Medrol to 40 mg IV daily. Patient not able to maintain fluid restriction. Discussed in detail. He is agreeable. Fluid restriction up to 2 L. Oral Bumex 1 mg twice daily. Hypernatremia resolved. Currently sodium down to 138. Continue with oral diet. Started on regular carb consistent diet as per speech evaluation. Continue with PT evaluation. Goal blood pressure less than 140/90 mmHg. Blood pressures slightly elevated. Discontinue clonidine patch. Start on hydralazine 25 mg 3 times daily. Uptitrate as per goal blood pressure. Appreciate cultures. Discontinue vancomycin as patient has had over 7 days of vancomycin course. Continue with Zosyn for now. Sputum culture most recently growing Serratia which is sensitive. For now we will continue Zosyn for 1 more day. Can plan to transition to oral Levaquin on discharge to finish a 5-day course. Transfer to [email or web address]. This documentation was created by [email or web address] race car driver software. Every effort was made to ensure accuracy of race car driver. Any obvious errors or omissions should be clarified with the author of the document. PDMP PDMP Reviewed: Not Reviewed Attestations 2 Medical Necessity Statement*: Requested hospitalization for management of acute on chronic hypoxic and hypercapnic respiratory failure in setting of pneumonia, diastolic heart failure, COPD and restrictive lung disease, postextubation's Diagnoses Acute respiratory failure with hypoxia and hypercapnia J96.01; J96.02 Acute exacerbation of CHF (congestive heart failure) I50.9 Acute kidney injury superimposed on stage 3b chronic kidney disease N17.9; N18.32 COPD exacerbation J44.1 Class 3 obesity with alveolar hypoventilation, serious comorbidity, and body mass index (BMI) of 40.0 to 44.9 in adult E66.2; Z68.41 Serious obesity comorbidity presence: with serious comorbidity Chronic diastolic congestive heart failure, NYHA class 3 I50.32 Congestive heart failure chronicity: chronic Progressive pulmonary hypertension I27.20 Nonrheumatic aortic valve stenosis I35.0 History of coronary angioplasty with insertion of stent Z95.5 Chronic respiratory failure with hypoxia and hypercapnia J96.11; J96.12 ETOH abuse F10.10 Alcohol use disorder F10.90 Goals of care, counseling/discussion Z71.89 Hypernatremia E87.0
[2024-07-03] MEDS: insulin lispro 100 unit/1 mL SUBCUT ×3 (12:28→20:12)
--- NOTE | 2024-07-03 12:44 | PC.SOCIAL ---
IMM Update pg 2 of IMM Updated and reviewed w/ patient. Copy provided and copy dated, initialed and placed in chart.
[2024-07-03] MEDS: hyDRALAzine 25 mg Tablet 50 MG PO ×2 (15:57→20:09)
--- NOTE | 2024-07-03 18:15 | PC.NURSE ---
SHift SUmmary: Up to a chair for most of the day. Walked twice with staff, about 50 feet each time, saturations remained above 90% on 2L, no increased work of breathing. Patient is physically deconditioned, but strength is improving. Started on 2L fluid restriction partway through the day. Total urine output: 1150mL
[2024-07-03] MEDS: sennosides 8.6 mg Tablet 17.2 MG PO (20:10)
[2024-07-03] MEDS: mirtazapine 15 mg Tablet PO (20:10)
[2024-07-03] MEDS: chlorhexidine gluconate 4% Btl 118 mL 1 APPLIC TOPICAL (20:12)
[2024-07-03 21:16] LABS: Glucose Point of Care 202 mg/dL (70-110)
[2024-07-03 21:16] LABS: Glucose Point of Care 133 mg/dL (70-110)
[2024-07-04] VITALS (23 sets, daily range): BP systolic 107–172; BP diastolic 52–107; PULSE 90–107; RESP 14–18; TEMP 36.9–37.1; O2SAT 69–95
[2024-07-04] MEDS: ipratropium-albuterol 3 mL Neb INHALATION ×4 (00:18→11:07)
[2024-07-04] MEDS: piperacillin-tazobactam 3.375 GM in sodium chloride 0.9% (plus) 50 ML IV (05:18)
[2024-07-04] MEDS: enoxaparin 40 mg/0.4 mL Syringe SUBCUT (05:19)
[2024-07-04] MEDS: pantoprazole 40 mg SDV IVP (05:19)
[2024-07-04 05:20] LABS: Basophils % 0.1 %; Eosinophils # 0.3 10^3/uL (0.0-0.8); Eosinophils % 2.3 %; Hematocrit 56.6 % (37-53); Lymphocytes # 2.6 10^3/uL (0.8-4.8); Lymphocytes % 21.3 %; Mean Corpuscular Hemoglobin 27.6 pg (27-33); Mean Corpuscular Volume 95.3 fl (82-101); Mean Platelet Volume 9.9 fL (7.4-10.4); Monocytes # 1.1 10^3/uL (0.2-0.9); Monocytes % 8.7 %; Neutrophils # 8.24 10^3/uL (1.8-7.7); Neutrophils % 67.2 %; Nucleated Red Blood Cells % 0 %; Platelet Count 144 10^3/cmm (157-399); Red Blood Count 5.94 10^6/uL (3.85-5.65); Red Cell Distribution Width 18.6 % (12.1-15.1); White Blood Count 12.25 10^3/uL (3.29-11.43)
[2024-07-04 05:38] LABS: Magnesium 2.2 mg/dL (1.7-2.3)
[2024-07-04 05:39] LABS: Alanine Aminotransferase 23 U/L (0-41); Albumin Level 3.7 g/dL (3.5-5.2); Alkaline Phosphatase 85 U/L (40-130); Anion Gap 12.2 (5-19); Aspartate Amino Transferase 22 U/L (0-40); Blood Urea Nitrogen 65 mg/dL (8-23); Calcium 9.4 mg/dL (8.5-10.5); Carbon Dioxide 34 mmol/L (22-29); Chloride 98 mmol/L (98-107); Creatinine Clr Calc Pharmacy 56.8822; Globulin 2.9 g/dL (1.3-4.6); Glomerular Filtration Rate 32.1 mL/min (90-130); Glucose 140 mg/dL (65-115); Osmolality Calculated 313 mOsm/kg (285-295); Potassium 3.2 mmol/L (3.5-5.1); Sodium 141 mmol/L (136-145); Total Bilirubin 0.9 mg/dL (0.15-1.2); Total Protein 6.6 g/dL (6.6-8.7)
[2024-07-04 07:37] LABS: Glucose Point of Care 206 mg/dL (70-110)
[2024-07-04 07:37] LABS: Glucose Point of Care 141 mg/dL (70-110)
[2024-07-04 07:55] LABS: Glucose Point of Care 148 mg/dL (70-110)
[2024-07-04] MEDS: gabapentin 300 mg Capsule PO (08:07)
[2024-07-04] MEDS: BuSPIRONE 10 mg Tablet PO (08:07)
[2024-07-04] MEDS: finasteride 5 mg Tablet PO (08:07)
[2024-07-04] MEDS: tamsulosin 0.4 mg Capsule PO (08:07)
[2024-07-04] MEDS: bumetanide 1 mg Tablet PO (08:07)
[2024-07-04] MEDS: ATORVASTATIN 10 MG TABLET PO (08:07)
[2024-07-04] MEDS: thiamine 100 mg/mL 2mL SDV IVP (08:08)
[2024-07-04] MEDS: nicotine 14 mg Patch 1 PATCH TRANSDERMA (08:08)
[2024-07-04] MEDS: hyDRALAzine 25 mg Tablet 50 MG PO (08:08)
[2024-07-04] MEDS: methylPREDNISolone sod succ 40 mg/mL INJ IVP (08:08)
[2024-07-04] MEDS: fluoxetine 20 mg Capsule 60 MG PO (08:08)
[2024-07-04] MEDS: budesonide 0.5 mg/2 mL Neb INHALATION (08:30)
[2024-07-04] MEDS: insulin lispro 100 unit/1 mL SUBCUT (08:54)
--- NOTE | 2024-07-04 09:10 | P.DS_ITS ---
Discharge Providers Date of Admission: 06/25/24 19:58 Date of Discharge: July 04, 2024 Attending Provider at Admission: Kelly White MD Attending Provider at Discharge: Benjamin Truong MD Primary Care Provider: Barbara Longo DO Diagnoses at Discharge Discharge Diagnosis (1) Acute respiratory failure with hypoxia and hypercapnia: Status: Acute (2) Acute exacerbation of CHF (congestive heart failure): Status: Acute (3) Acute kidney injury superimposed on stage 3b chronic kidney disease: Status: Acute (4) COPD exacerbation: Status: Resolved (5) Class 3 obesity with alveolar hypoventilation and body mass index (BMI) of 40.0 to 44.9 in adult: Status: Acute Qualifiers: Serious obesity comorbidity presence: with serious comorbidity Qualified Code(s): E66.2 - Morbid (severe) obesity with alveolar hypoventilation; Z68.41 - Body mass index [BMI] 40.0-44.9, adult (6) Diastolic congestive heart failure, NYHA class 3: Status: Acute Qualifiers: Congestive heart failure chronicity: chronic Qualified Code(s): I50.32 - Chronic diastolic (congestive) heart failure (7) Progressive pulmonary hypertension: Status: Acute (8) Aortic stenosis: Status: Acute (9) History of coronary angioplasty with insertion of stent: Status: Acute (10) Chronic respiratory failure with hypoxia and hypercapnia: Status: Acute (11) ETOH abuse: Status: Acute (12) Alcohol use disorder: Status: Acute (13) Goals of care, counseling/discussion: Status: Acute (14) Hypernatremia: Status: Acute Reason for Visit Reason for Visit: low O2 Brief History: History as per HPI: Patient was intubated by the time that he was seen for admission. Perry Norman is a 63 yo man w/ CKDIIIB, w/COPD, chronic hypoxic respiratory failure on 5L NC, CHF, who was brought to the ED on 06/25/2024, via EMS, for increased dyspnea and increasing O2 requirement. Per ED notes, patient was feeling increasingly dyspneic and increasing his nasal cannula, so EMS was called. When EMS arrived, the patient's pulse ox showed an O2 sat ranging 50- 70%. He was placed on a 15L non-rebreather. On arrival, to the ED, his vital signs were significant for hypoxia of 71%. He was somnolent. He has no leukocytosis, but does have an AUBREY on CKD w/ a Crof 2.6 (baseline 1.7 on 06/14/2024). His ABG was 7.24/93/59.9 on 5L O2. His EKG showed NSR w/ PVCs, and no ST changes, but a QTc of 443. Trop T was minimally elevated. ProBNP was 2851. His CXR showed findings concerning for fluid overload and concern for L. pleural effusion. He was initially started on a BiPAP trial and then intubated and placed on Fentanyl/Versed drip. He was given Epinephrine 0.0mg IVPx 1, 125mg Methylprednisolone, duoneb x 1, Zosyn 3.375g x 1. Per ED nurse, after intubation, neither an NGT or an OGT could be placed in the ED despite attempts by the ED nursing staff and by the ED attending. Per ED nurse, the person that accompanied the patient states that the patient still actively consumes alcohol and smokes 3 ppd. Hospital Course Hospital Course Patient was admitted to the hospital further evaluation and management of severe hypoxic and hypercapnic acute respiratory failure in setting of COPD exacerbation, right lower lobe pneumonia, baseline restrictive lung disease, severe obstructive sleep apnea, diastolic heart failure. He was started on broad-spectrum IV antibiotics along with nebulization treatment and steroids. He was started on aggressive IV diuresis. Hospitalization was complicated by him developing mild AUBREY and hypernatremia which resolved with monitoring fluid status. His blood cultures remain negative though sputum culture came back positive for Serratia and Staphylococcus hicus, urine culture came back positive for Enterococcus. He has finished a course of antibiotics for pneumonia and UTI. Eventually he was extubated. Currently patient has been doing well on his baseline oxygen supplementation for last 2 days both at rest and exertion. He worked well with physical therapy. Diet was advanced as per speech evaluation. He has been discharged in hemodynamically stable condition with counseling for congestive heart failure life modification, counseling for smoking cessation, counseling for compliance with medication and BiPAP. His antihypertensives have been adjusted with hydralazine increased to 25 mg 3 times a day and Coreg to 12.5 mg twice daily. He is to check his blood pressure daily at home and kelly alberts a blood pressure diary and follow-up with a primary care provider within next 2 weeks for further adjustment of antihypertensives. Farxiga has been added to his medication list. Home health is being arranged for safe discharge planning. Physical Exam Narrative: General: AO x 3, no acute distress on nasal cannula HEENT: PERRLA, pupils bilaterally equal and reactive Chest: Bilateral bronchial breath sounds all over lung riddle with occasional rhonchi coarse crackles present bilaterally right more than left, fine crackles present up to mid chest bilaterally posterior more than anterior CVS: S1-S2 regular, no murmurs, no tachycardia, no gallops, no rubs Abdomen: Soft, nontender, no organomegaly, bowel sounds present Neuro: No focal deficit, moving all limbs, AO x 3 Urinary Catheter Management: Mukherjee: Cath Placed During This Visit: yes, but has since been removed by the nurse Reason for Continuing Indwelling Catheter: Decision to DC Catheter Urinary Catheter Date of Insertion: 06/25/24 Date Urinary Catheter Removed: 07/03/24 Time Urinary Catheter Discontinued: 19:00 Discharge Data Studies Completed and Pending Completed Studies During Hospitalization Category Date Time Status CT chest abdomen pelvis [place] [id number] Cat Scan 06/26/24 09:33 Completed ] Routine CXRP [XR chest 1V portable [id number]] Routine Exams 06/26/24 11:19 Completed CXRP [XR chest 1V portable [id number]] Stat Exams 06/25/24 23:17 Completed XR chest 1V portable [id number] QAM Exams 06/27/24 06:00 Completed XR chest 1V portable [id number] QAM Exams 06/28/24 06:00 Completed XR chest 1V portable [id number] QAM Exams 06/29/24 06:00 Completed XR chest 1V portable [id number] QAM Exams 06/30/24 06:00 Completed XR chest 1V portable [id number] QAM Exams 07/01/24 06:00 Completed XR chest 1V portable 23405 QAM Exams 07/02/24 06:00 Completed XR chest 1V portable [id number] Routine Exams 06/26/24 08:21 Completed XR chest 1V portable [id number] Stat Exams 06/25/24 17:28 Completed XR chest 1V portable [id number] Stat Exams 06/25/24 18:20 Completed CV. echo wo/w contrast [id number] Routine Ultrasound 06/26/24 20:03 Completed US renal BI* [id number] Routine Ultrasound 06/26/24 23:03 Completed Pending at discharge Category Date Time Status Complete Blood Count w/Auto AM LABS Lab 07/05/24 04:00 Ordered Comprehensive Metabolic Panel AM LABS Lab 07/05/24 04:00 Ordered MAG [Magnesium] AM LABS Lab 07/05/24 04:00 Ordered MAG [Magnesium] AM LABS Lab 07/06/24 04:00 Ordered Radiology Impressions Chest/Abdomen/Pelvis CT 06/26/24 09:33 IMPRESSION: 1. Dense pulmonary consolidation in the lower lung riddle consistent with pneumonia. 2. Marked cardiomegaly with pericardial calcifications. 3. Satisfactory position of nasogastric and endotracheal tubes. 4. RIGHT central line terminates at the junction of the brachiocephalic vein and the internal jugular vein. 5. Hepatosplenomegaly. Liver appears cirrhotic. 6. Cholelithiasis without acute cholecystitis. 7. Patient has known bilateral renal masses. Some of these are cystic in appearance and others are up increased attenuation suggesting increased protein content. Cannot characterize renal masses further. Renal Ultrasound 06/26/24 23:03 IMPRESSION: 1. Difficult evaluation of the kidneys due to patient's body habitus. 2. Multiple bilateral cortical cysts have been previously described. No solid mass or renal obstruction is identified although study is limited. 3. RIGHT renal atrophy has been noted on a prior CT. Chest X-Ray 07/02/24 06:00 IMPRESSION: The endotracheal tube is not visible on this study. Microbiology 06/25/24 19:12 Blood Blood Culture - Final NO GROWTH AFTER 5 DAYS 06/25/24 17:40 Blood Blood Culture - Final NO GROWTH AFTER 5 DAYS 06/28/24 09:45 Sputum - Endotracheal Tube Aspirate Gram Stain - Final 06/28/24 09:45 Sputum - Endotracheal Tube Aspirate Sputum Culture - Final Serratia marcescens 06/25/24 18:40 Sputum - Endotracheal Tube Aspirate Gram Stain - Final 06/25/24 18:40 Sputum - Endotracheal Tube Aspirate Sputum Culture - Final Staph hyicus/chromogenes 06/25/24 19:44 Urine,Clean Catch Urine Culture - Final Enterococcus faecalis 06/26/24 08:15 Urine Kidney Bacterial Antigens - Final Echocardiogram: CONCLUSIONS Normal left ventricular cavity size. Low Normal left ventricular systolic function. Left ventricular ejection fraction is estimated at 50-55 %. Grade II/IV diastolic dysfunction, moderately elevated filling pressures. Moderate aortic valve calcification. Moderate aortic valve stenosis, mean gradient 18.5 mmHg, MARISEL 1.1 cm squared. Trace aortic valve regurgitation. Moderately thickened mitral valve. Mild mitral annular calcification. No mitral valve stenosis. Trace mitral valve regurgitation. There is no pericardial effusion. Right atrial pressure is around 20 mm of mercury. Alfred Aden MD (Electronically Signed) Final Date: 26 Jun 2024 14:13 Laboratory Results WBC 12.25 10^3/uL (3.29-11.43) H 07/04/24 04:44 RBC 5.94 10^6/uL (3.85-5.65) H 07/04/24 04:44 Hgb 16.40 g/dL (11.27-16.99) 07/04/24 04:44 Hct 56.6 % (37-53) H 07/04/24 04:44 MCV 95.3 fl (82-101) 07/04/24 04:44 MCH 27.6 pg (27-33) 07/04/24 04:44 MCHC 29.0 g/dL (30-55) L 07/04/24 04:44 RDW 18.6 % (12.1-15.1) H 07/04/24 04:44 Plt Count 144 10^3/cmm (157-399) L 07/04/24 04:44 MPV 9.9 fL (7.4-10.4) 07/04/24 04:44 Neut % (Auto) 67.2 % 07/04/24 04:44 Lymph % (Auto) 21.3 % 07/04/24 04:44 Glenn % (Auto) 8.7 % 07/04/24 04:44 Eos % (Auto) 2.3 % 07/04/24 04:44 Baso % (Auto) 0.1 % 07/04/24 04:44 Neut # (Auto) 8.24 10^3/uL (1.8-7.7) H 07/04/24 04:44 Lymph # (Auto) 2.6 10^3/uL (0.8-4.8) 07/04/24 04:44 Glenn # (Auto) 1.1 10^3/uL (0.2-0.9) H 07/04/24 04:44 Eos # (Auto) 0.3 10^3/uL (0.0-0.8) 07/04/24 04:44 Baso # (Auto) 0.0 10^3/uL (0.0-0.1) 07/04/24 04:44 Nucleated RBC % (auto) 0 % 07/04/24 04:44 Nucleated RBCs # 0.0 /100WBC 07/04/24 04:44 PT 13.70 SECONDS (12.1-14.9) 06/25/24 17:40 INR 0.98 (0.8-1.2) 06/25/24 17:40 APTT 29.0 SECONDS (23.9-36.7) 06/25/24 17:40 D-Dimer 2.47 ug/mLFEU (0-0.59) H 06/26/24 10:03 Specimen Type Arterial 07/02/24 04:46 Sample Site Radial, right 07/02/24 04:46 ABG pH 7.45 (7.35-7.45) 07/02/24 04:46 ABG pCO2 55.0 mmHg (35-45) H 07/02/24 04:46 ABG pO2 64.1 mmHg (80.0-100.0) L 07/02/24 04:46 ABG PO2/FiO2 Ratio 160 07/02/24 04:46 ABG HCO3 38.4 mmol/L (22-26) H 07/02/24 04:46 ABG O2 Saturation 90.4 07/02/24 04:46 ABG Base Excess 11.4 mmol/L (-2.0-2.0) H 07/02/24 04:46 Augustine Test Pos 07/02/24 04:46 A-a O2 Gradient 19.6 mmHg (5-10) H 07/02/24 04:46 Hematocrit 55.9 % (42-52) H 07/02/24 04:46 Hgb O2 Saturation 89.1 % (95-100) L 07/02/24 04:46 Carboxyhemoglobin 0.9 %THgb (0.4-20.1) 07/02/24 04:46 Methemoglobin 0.6 % (0.4-1.5) 07/02/24 04:46 Total Hemoglobin 18.3 g/dL (14-18) H 07/02/24 04:46 Sodium 150.0 mmol/L (131-143) H 07/02/24 04:46 Potassium 3.7 mmol/L (3.5-5.0) 07/02/24 04:46 Glucose 131.0 mg/dL (70-115) H 07/02/24 04:46 Ionized Calcium 1.3 mmol/L (1.1-1.4) 07/02/24 04:46 O2 Delivery Device Bipap 07/02/24 04:46 O2 Liters/Min 5.0 % 06/25/24 17:43 FiO2 40.0 % 07/02/24 04:46 Tidal Volume 0.55 07/01/24 05:07 PEEP 8.0 cmH20 07/01/24 14:05 Poultryman ID Shaun 07/02/24 04:46 Sodium 141 mmol/L (136-145) 07/04/24 04:44 Potassium 3.2 mmol/L (3.5-5.1) L 07/04/24 04:44 Chloride 98 mmol/L (98-107) 07/04/24 04:44 Carbon Dioxide 34 mmol/L (22-29) H 07/04/24 04:44 Anion Gap 12.2 (5-19) 07/04/24 04:44 BUN 65 mg/dL (8-23) H 07/04/24 04:44 Creatinine 2.1 mg/dL (0.7-1.2) H 07/04/24 04:44 GFR Calculation 32.1 mL/min (90-130) L 07/04/24 04:44 Glucose 140 mg/dL (65-115) H 07/04/24 04:44 POC Glucose 148 mg/dL (70-110) H 07/04/24 07:50 Estimat Average Glucose 143 06/26/24 02:56 Hemoglobin A1c 6.6 % (4.0-6.0) H 06/26/24 02:56 Calculated Osmolality 313 mOsm/kg (285-295) H 07/04/24 04:44 Lactic Acid 1.2 mmol/L (0.5-2.2) 06/25/24 17:40 Calcium 9.4 mg/dL (8.5-10.5) 07/04/24 04:44 Phosphorus 4.1 mg/dL (2.5-4.5) 07/03/24 04:29 Magnesium 2.2 mg/dL (1.7-2.3) 07/04/24 04:44 Iron 32 ug/dL (59-158) L 06/26/24 02:56 TIBC 295 mcg/dl 06/26/24 02:56 % Saturation 10.8 % (20-50) L 06/26/24 02:56 Unsat Iron Binding 263 ug/dL (112-347) 06/26/24 02:56 Total Bilirubin 0.9 mg/dL (0.15-1.2) 07/04/24 04:44 AST 22 U/L (0-40) 07/04/24 04:44 ALT 23 U/L (0-41) 07/04/24 04:44 Alkaline Phosphatase 85 U/L (40-130) 07/04/24 04:44 Troponin T Baseline 36 ng/L (0-15) H 06/25/24 17:40 Troponin T 120 Minute 34.92 ng/L (0-15) H 06/25/24 19:12 Delta Troponin T -1.08 ABS# (0-10) L 06/25/24 19:12 Troponin T Hi Sens 6Hr 29.32 ng/L (0-15) H 06/25/24 23:45 Troponin T Hi Sens 6Hr Delta -6.68 ng/L (0-12) L 06/25/24 23:45 NT-Pro-B Natriuret Pep 2851 pg/mL (0-125) H 06/25/24 17:40 Total Protein 6.6 g/dL (6.6-8.7) 07/04/24 04:44 Albumin 3.7 g/dL (3.5-5.2) 07/04/24 04:44 Globulin 2.9 g/dL (1.3-4.6) 07/04/24 04:44 Triglycerides 195 mg/dL (0-150) H 06/27/24 04:45 Cholesterol 170 mg/dL (0-200) 06/27/24 04:45 LDL Cholesterol, Calc 104 mg/dL (50-129) 06/27/24 04:45 Total VLDL Cholesterol 39 mg/dL (0-30) H 06/27/24 04:45 HDL Cholesterol 27 mg/dL (60-100) L 06/27/24 04:45 Cholesterol/HDL Ratio 6.30 mg/dL (1.0-5.00) H 06/27/24 04:45 Vitamin B12 458 pg/mL (232-1245) 06/26/24 02:56 Folate 7.9 ng/mL (4.5-32.2) 06/27/24 04:45 Procalcitonin 0.36 ng/mL (0-0.5) 06/26/24 02:56 TSH 1.18 uIU/mL (0.27-4.20) 06/25/24 23:45 Free T4 1.35 ng/dL (0.82-1.77) 06/25/24 23:45 Urine Color Yellow (Yellow) 06/25/24 19: Urine Appearance Cloudy (CLEAR) A 06/25/24 19: Urine pH 5.0 (5-7) 06/25/24 19:44 Ur Specific [place] 1.020 (1.005-1.030) 06/25/24 19:44 Urine Protein 3+ (Negative) A 06/25/24 19: Urine Glucose (UA) Negative (Normal) 06/25/24 19:44 Urine Ketones Trace (Negative) 06/25/24 19: Urine Blood 1+ (Negative) A 06/25/24: Urine Nitrate Negative (Negative) 06/25/24: Urine Bilirubin Negative (Negative) 06/25/24 19:44 Urine Urobilinogen 1.0 mg/dL (Negative) 06/25/24 19:44 Ur Leukocyte Esterase 2+ (Negative) A 06/25/24 19:44 Urine RBC 0-2 /hpf (0-2) 06/25/24 19:44 Urine WBC >100 /hpf (0-5) H 06/25/24 19:44 Ur Squamous Epith Cells 0-5 /hpf (0-5) 06/25/24 19: Amorphous Sediment Not Reportable 06/25/24 19: Urine Bacteria None seen /hpf (NONE) 06/25/24 19:44 Hyaline Casts 13.63 /lpf 06/25/24 19:44 Ur Random Sodium 17 mmol/L 06/25/24 19: Urine Creatinine 255 mg/dL (39-259) 06/25/24 19:44 Vancomycin Trough 8.3 ug/mL (10-15) L 07/02/24 13:40 Random Vancomycin 8.5 ug/mL (20.0-40.0) L 07/01/24 04:23 Urine Opiates Screen Negative ng/mL (Negative) 06/25/24 19:44 Ur Barbiturates Screen Negative ng/mL (Negative) 06/25/24 19:44 Ur Phencyclidine Scrn Negative ng/mL (Negative) 06/25/24 19:44 Ur Amphetamines Screen Negative ng/mL (Negative) 06/25/24 19:44 U Benzodiazepines Scrn Positive ng/mL (Negative) H 06/25/24 19:44 Urine Cocaine Screen Negative ng/mL (Negative) 06/25/24 19:44 U Marijuana (THC) Screen Negative ng/mL (Negative) 06/25/24 19:44 Ethyl Alcohol < 10 mg/dL (0-10) 06/25/24 15:44 Adenovirus (PCR) Not detected (NOT DETECT) 06/25/24 19:55 C. pneumoniae DNA (PCR) Not detected (NOT DETECT) 06/25/24 19:55 Coronavirus 229E (PCR) Not detected (NOT DETECT) 06/25/24 19:55 Human Metapneumovir PCR Not detected (NOT DETECT) 06/25/24 19:55 Influenza A (H1) PCR Not detected (NOT DETECT) 06/25/24 19:55 Influenza A (PCR) Negative (Negative) 06/25/24 18:00 Influ A (H1/09) PCR Not detected (NOT DETECT) 06/25/24 19:55 Influenza A (H3) PCR Not detected (NOT DETECT) 06/25/24 19:55 Influenza Type A (PCR) Not detected (NOT DETECT) 06/25/24 19:55 Influenza Type B (PCR) Not detected (NOT DETECT) 06/25/24 19:55 M. pneumoniae (PCR) Not detected (NOT DETECT) 06/25/24 19:55 Parainfluenza 1 (PCR) Not detected (NOT DETECT) 06/25/24 19:55 Parainfluenza 2 (PCR) Not detected (NOT DETECT) 06/25/24 19:55 Parainfluenza 3 (PCR) Not detected (NOT DETECT) 06/25/24 19:55 Parainfluenza 4 (PCR) Not detected (NOT DETECT) 06/25/24 19:55 RSV (PCR) Negative (Negative) 06/25/24 18:00 RSV Type A (PCR) Not detected (NOT DETECT) 06/25/24 19:55 RSV Type B (PCR) Not detected (NOT DETECT) 06/25/24 19:55 Entero/Rhino (PCR) Not detected (NOT DETECT) 06/25/24 19:55 SARS-CoV-2 (PCR) Not detected (NOT DETECT) 06/25/24 19:55 Vitals Last Vital Signs Temp 98.4 F 07/04/24 00:00 Pulse 99 07/04/24 08:31 Resp 18 07/04/24 08:31 BP 142/83 07/04/24 05:00 Pulse Ox 93 07/04/24 08:31 O2 Del Method Nasal Cannula 07/04/24 08:31 O2 Flow Rate 3 07/04/24 08:31 FiO2 3 07/03/24 04:00 Discharge Plan Discharge Patient Disposition: Home Health Service Condition: Stable Prescriptions: New prednisone 10 mg tablet See Taper PO DIRECTED Qty: 42 0RF Taper: predniSONE 60-10 60 mg Daily for 2 Days and 0 Hour 50 mg Daily for 2 Days and 0 Hour 40 mg Daily for 2 Days and 0 Hour 30 mg Daily for 2 Days and 0 Hour 20 mg Daily for 2 Days and 0 Hour 10 mg Daily for 2 Days and 0 Hour Rx Instructions: see taper instructions bumetanide 1 mg tablet 1 mg PO BID Qty: 60 0RF dapagliflozin propanediol [Farxiga] 10 mg tablet 10 mg PO DAILY Qty: 30 0RF budesonide [Pulmicort] 0.5 mg/2 mL suspension for nebulization 0.5 mg inhalation BID Qty: 60 0RF ipratropium-albuterol 0.5 mg-3 mg(2.5 mg base)/3 mL solution for nebulization 3 ml inhalation Q8H Qty: 180 0RF Continued lovastatin 40 mg tablet 40 mg PO DAILY buspirone 10 mg tablet 10 mg PO TID finasteride 5 mg tablet 5 mg PO QDAY Qty: 90 3RF (DME) Mineralogy Teacher Brace See Rx Instructions .Route .MEDSUPPLY Qty: 1 0RF Rx Instructions: As directed mirtazapine 15 mg tablet 15 mg PO BEDTIME (DME) LEFT KNEE MEDIAL GRAPHIC DESIGN TEACHER BRACE See Rx Instructions .Route .MEDSUPPLY Qty: 1 0RF Rx Instructions: As directed potassium chloride 10 mEq tablet extended release 10 meq PO DAILY Qty: 90 3RF Stiolto Respimat 2.5-2.5 mcg/actuation mist 2 puff inhalation DAILY Qty: 4 6RF ergocalciferol (vitamin D2) 1,250 mcg (50,000 unit) Capsule 1,250 mcg PO Q7D Rx Instructions: (on Sundays) fluoxetine 20 mg Capsule 60 mg PO DAILY testosterone cypionate 200 mg/mL oil 200 mg IM .EVERY 21 DAYS naloxone [Narcan] 4 mg/actuation spray,non-aerosol 4 mg intranasal Q2M PRN (Reason: opioid overdose) Qty: 2 0RF Rx Instructions: spray 1 dose into ONE nostril; alternate nostrils w each dose until help arrives gabapentin 600 mg tablet 300 mg PO QID 30 Days Qty: 60 0RF alfuzosin 10 mg tablet extended release 24 hr 10 mg PO DAILY tamsulosin 0.4 mg capsule 0.4 mg PO BID esomeprazole magnesium 40 mg capsule,delayed release(DR/EC) 40 mg PO BID oxycodone-acetaminophen [Percocet] 10-325 mg tablet 1 tab PO Q4H PRN (Reason: Pain) 7 Days Qty: 42 0RF Changed carvedilol 25 mg tablet 12.5 mg PO BID Qty: 30 0RF hydralazine 25 mg tablet 25 mg PO TID 30 Days Qty: 90 0RF Discontinued furosemide [Lasix] 40 mg tablet 40 mg PO DAILY Qty: 90 3RF prednisone 20 mg tablet 20 mg PO BID doxycycline hyclate 100 mg tablet 100 mg PO BID Discharge Orders: Discharge Order (Routine); Ordered 07/04/24 Ordered By: Benjamin Truong Referrals: [facility] [Outside] Barbara Longo DO [Primary Care Provider, Family Practice] - 07/09/24 10:40 am Referral Note: will follow with DIGITAL RECRUITER Nurse Lynn Santiago Discharge Diet: Cardiac and Diabetic Discharge Activity: Resume usual activity and Increase activity as tolerated Patient Instructions: Bumetanide (By mouth) (Bumex), Ipratropium (By breathing) (Atrovent HFA), Prednisone (By mouth) (Prednisone Intensol, Prednicot, Deltasone, Merlene), Budesonide (By breathing) (Flex de Pulmicort, Pulmicort Flexhaler,..., Dapagliflozin (By mouth) (Farxiga), Heart Failure (DC), How to Stop Smoking (DC), Acute Kidney Injury (DC), Heart Healthy Diet (DC), How to Take a Blood Pressure Reading (DC), Low-Sodium Diet (DC), Fluid Restriction (DC), Chronic Respiratory Failure (DC), CHF Stoplight, COPD Stoplight, Opioid Safety Patient's Health Concerns: Restrict fluid intake to less than 1500 cc, salt intake to less than 2 g daily. Advised to check his weight daily at home. Is advised that weight today would be the dry weight and if body weight increases by around 5 pounds, patient is to take an extra dose of Bumex daily till body weight comes down to weight today. If not able to come down to dry body weight in 1 week, then is to call cardiology office for further recommendations. Patient was counseled in detail to take medications regularly as prescribed. Goal blood pressure of less than 140/90 mmHg. Your dose of hydralazine has been changed to 25 mg 3 times a day. Coreg has been changed to 12.5 mg twice daily. Uptitrate as for goal blood pressure. Follow-up with a primary care provider with your blood pressure diary in 1 week. Farxiga has been added to your medication list which will help you both with your diabetes and heart failure. Please try to quit smoking at the earliest. Please try to continue using your BiPAP as before. Discharge Attestations Time Spent in Discharge Care*: greater than 30 min Specific Discharge Activities: educating patient, educating and/or supporting family/caregiver, discussing with pcp/other providers, discussing with case preparer and liner/social workers/dc planners, documenting/other paperwork and evaluating patient/reviewing data Time Spent in Smoking Cessation: more than 10 minutes Status at Discharge: Cognitive status at discharge: cognitively intact , Behavioral status at discharge: cooperative , Functional status at discharge: independent ambulation , Overall status at discharge: patient is back to baseline Quality Metrics Clinical Quality Measures [ No reported AMI, CVA or VTE this stay] Coding Level of Care Code 06744 Total time (in minutes) for Discharge: 70 Diagnoses Acute respiratory failure with hypoxia and hypercapnia J96.01; J96.02 Acute exacerbation of CHF (congestive heart failure) I50.9 Acute kidney injury superimposed on stage 3b chronic kidney disease N17.9; N18.32 COPD exacerbation J44.1 Class 3 obesity with alveolar hypoventilation, serious comorbidity, and body mass index (BMI) of 40.0 to 44.9 in adult E66.2; Z68.41 Serious obesity comorbidity presence: with serious comorbidity Chronic diastolic congestive heart failure, NYHA class 3 I50.32 Congestive heart failure chronicity: chronic Progressive pulmonary hypertension I27.20 Nonrheumatic aortic valve stenosis I35.0 History of coronary angioplasty with insertion of stent Z95.5 Chronic respiratory failure with hypoxia and hypercapnia J96.11; J96.12 ETOH abuse F10.10 Alcohol use disorder F10.90 Goals of care, counseling/discussion Z71.89 Hypernatremia E87.0
--- NOTE | 2024-07-04 12:01 | PC.NURSE ---
Patient and his nephew given extensive verbal education over the printed discharge instructions. Patient and his nephew both verbalized understanding of education provided on COPD, CHF, Fluid restriction, Diet changes, Follow up appointments, new, stop, and continued medications, monitoring blood pressure and daily weight. PICC removed with no complications to patient. Patient using home oxygen tank at discharge. All belongings with patient.
== END 2024-07-04 11:55 | disposition home health service (06) | DRG 207 ==
LOC: ER 20:44 → ICU 20:55
PROVIDERS: Emergency Medicine; Student in an Organized Health Care Education/Training Program; Admitting Provider Internal Medicine; Emergency Provider Family Medicine; PCP Family Medicine; Visit Provider Student in an Organized Health Care Education/Training Program
DX: J96.22 Acute and chronic respiratory failure with hypercapnia (principal); I50.33 Acute on chronic diastolic (congestive) heart failure; J18.9 Pneumonia, unspecified organism; I13.0 Hypertensive heart and chronic kidney disease with heart failure and stage 1 through stage 4 chronic kidney disease, or unspecified chronic kidney disease; N17.9 Acute kidney failure, unspecified; J44.1 Chronic obstructive pulmonary disease with (acute) exacerbation; J44.0 Chronic obstructive pulmonary disease with (acute) lower respiratory infection; E66.2 Morbid (severe) obesity with alveolar hypoventilation; Z68.42 Body mass index [BMI] 45.0-49.9, adult; E87.0 Hyperosmolality and hypernatremia; L97.428 Non-pressure chronic ulcer of left heel and midfoot with other specified severity; N39.0 Urinary tract infection, site not specified; J96.21 Acute and chronic respiratory failure with hypoxia; N18.32 Chronic kidney disease, stage 3b; I27.20 Pulmonary hypertension, unspecified; I35.0 Nonrheumatic aortic (valve) stenosis; I25.10 Atherosclerotic heart disease of native coronary artery without angina pectoris; F10.10 Alcohol abuse, uncomplicated; I49.3 Ventricular premature depolarization; Z96.651 Presence of right artificial knee joint; K21.9 Gastro-esophageal reflux disease without esophagitis; F41.8 Other specified anxiety disorders; N40.1 Benign prostatic hyperplasia with lower urinary tract symptoms; B95.2 Enterococcus as the cause of diseases classified elsewhere; B95.8 Unspecified staphylococcus as the cause of diseases classified elsewhere; F17.210 Nicotine dependence, cigarettes, uncomplicated; Z79.891 Long term (current) use of opiate analgesic; Z95.5 Presence of coronary angioplasty implant and graft; Z86.73 Personal history of transient ischemic attack (TIA), and cerebral infarction without residual deficits
CPT/HCPCS: 36415; 36416; 36573; 36592; 36600; 51702; 71045; 71250; 74176; 76770; 80048; 80051; 80053; 80061; 80202; 80306; 80307; 81001; 82330; 82570; 82607; 82746; 82803; 82805; 82947; 82962; 83036; 83540; 83550; 83605; 83735; 83880; 84100; 84145; 84295; 84300; 84439; 84443; 84484; 85025; 85378; 85610; 85730; 86403; 87040; 87070; 87077; 87086; 87186; 87205; 87486; 87581; 87633; 87637; 92523; 92610; 93005; 94002; 94003; 94640; 94660; 94664; 94669; 94799; 96365; 96366; 96367; 96372; 96374; 96376; 97110; 97116; 97162; 97167; 97530; 97535; 99291; C1751; C8929; J0360; J0456; J1650; J1815; J1938; J2250; J2470; J2543; J2704; J2919; J3010; J3370; J3372; J3411; J3475; J3480; J7030; J7050; J7626; J7799; J9999

== ENCOUNTER 2024-07-28 08:49 | Emergency (ER) | payer MEDICARE, OTHER, SELFPAY ==
[2024-07-28 08:50] VITALS: BP 134/81; PULSE 96; RESP 18; TEMP 36.7; O2SAT 93
--- NOTE | 2024-07-28 08:58 | XRR_ITS ---
PROCEDURE INFORMATION: Exam: XR Right Knee Exam date and time: 07/28/2024 9:15 AM Age: 63 years old Clinical indication: Pain; Right; Prior surgery; Surgery date: 6+ months; Surgery type: RT knee arthroplasty; Additional info: RT knee pain/swelling; No known injury TECHNIQUE: Imaging protocol: Radiologic exam of the right knee. Views: 3 views. Total images: 4 COMPARISON: CR XR knees AP WB w BI lmt ORTH 05/01/2024 3:18 PM FINDINGS: Tubes, catheters and devices: The prosthesis appears near anatomic in positioning. No parallel lucencies adjacent to the prosthesis are seen to suggest loosening. No acute fractures, subluxation, nor dislocation. Bones/joints: Right knee arthroplasty is present. Large joint effusion. Soft tissues: Normal. XR/XR knee RT 3V* [id number] IMPRESSION: 1. Status post right knee arthroplasty without complication. 2. Large joint effusion.
--- NOTE | 2024-07-28 09:01 | W.ED.EXTPRO ---
HPI - Extremity Problem General: Chief complaint: Extremity Problem,Nontraumatic Stated complaint: chf; right knee pain Time Seen by Provider: 07/28/24 08:50 Source: patient Mode of arrival: ambulatory Limitations: no limitations History of Present Illness: 63-year-old male with history of joint pain and arthritis in the past states been having right-sided knee pain over the last 2 days denies any injuries. States pain has been sharp in nature he is having a hard time ambulating due to the pain denies any injuries denies any fevers. He has had a joint replacement that knee years ago. Associated symptoms: Deny chest pain, fever(s) or rash Related Data Home Medications ?Medication ?Instructions ?Recorded ?Confirmed lovastatin 40 mg tablet 40 mg PO DAILY 03/05/19 07/28/24 ergocalciferol (vitamin D2) 1,250 1,250 mcg PO Q7D 05/25/20 07/28/24 mcg (50,000 unit) capsule fluoxetine 20 mg capsule 60 mg PO DAILY 05/25/20 07/28/24 buspirone 10 mg tablet 10 mg PO TID 06/12/20 07/28/24 testosterone cypionate 200 mg/mL 200 mg IM .EVERY 21 DAYS 06/23/21 07/28/24 intramuscular oil mirtazapine 15 mg tablet 15 mg PO BEDTIME 03/17/23 07/28/24 alfuzosin 10 mg tablet,extended 10 mg PO DAILY 06/26/24 07/28/24 release 24 hr tamsulosin 0.4 mg capsule 0.4 mg PO BID 06/26/24 07/28/24 semaglutide 0.25 mg or 0.5 mg (2 0.25 mg SUBCUT Q7D 07/28/24 07/28/24 mg/3 mL) subcutaneous pen injector (Ozempic) Previous Rx's ?Medication ?Instructions ?Recorded naloxone 4 mg/actuation nasal 4 mg intranasal Q2M PRN opioid 06/27/21 spray (Narcan) overdose #2 ea finasteride 5 mg tablet 5 mg PO QDAY #90 tabs 07/29/21 Special Education Director Brace #1 ea 08/08/22 oxycodone-acetaminophen 10 mg-325 1 tab PO Q4H PRN Pain 7 days #42 05/02/23 mg tablet (Percocet) tabs LEFT KNEE MEDIAL CHILD THERAPIST BRACE #1 ea 05/16/23 gabapentin 600 mg tablet 300 mg (1/2 x 600 mg) PO QID 30 10/05/23 days #60 tabs tiotropium 2.5 mcg-olodaterol 2.5 2 puff inhalation DAILY #4 grams 11/06/23 mcg/actuation mist for inhalation (Stiolto Respimat) potassium chloride 10 mEq 10 meq PO DAILY #90 tabs 01/24/24 tablet,extended release budesonide 0.5 mg/2 mL suspension 0.5 mg (2 mL) inhalation BID #60 mL 07/04/24 for nebulization (Pulmicort) bumetanide 1 mg tablet 1 mg PO BID #60 tabs 07/04/24 carvedilol 25 mg tablet 12.5 mg (1/2 x 25 mg) PO BID #30 07/04/24 tabs dapagliflozin propanediol 10 mg 10 mg PO DAILY #30 tabs 07/04/24 tablet (Farxiga) hydralazine 25 mg tablet 25 mg PO TID 30 days #90 tabs 07/04/24 ipratropium 0.5 mg-albuterol 3 mg 3 ml inhalation Q8H #180 mL 07/04/24 (2.5 mg base)/3 mL nebulization soln prednisone 10 mg tablet See Taper PO DIRECTED #42 tabs 07/04/24 Allergies Allergy/AdvReac Type Severity Reaction Status Date / Time adhesive tape Allergy Mild ALGY-Rash Verified 06/14/24 21:10 ciprofloxacin Allergy Unknown Unknown Verified 06/14/24 21:10 Forced Air Heat Allergy Mild Difficulty Uncoded 06/14/24 21:10 breathing; dries up sinuses. Review of Systems Const: Denies: fever(s), chills, body aches or change in appetite ENMT: Denies: throat pain or dental pain Card: Denies: chest pain Resp: Denies: dyspnea GI: Denies: abdominal pain, nausea, vomiting or diarrhea Musc: Reports: extremity pain; Denies: neck pain or back pain Skin/Breast: Denies: rash Neuro: Denies: headache(s) PFSH ED PFSH: Medical History MRSA (methicillin resistant staphylococcus aureus) pneumonia Postoperative wound infection Staphylococcus epidermidis bacteremia Bilateral renal masses Mostly hyperdense cyst. No clear-cut solid masses. Based on overall poor health recommended observation alone. Peripheral arterial disease CHF (NYHA class III, ACC/AHA stage C) Cigarette smoker Ganglion cyst of volar aspect of right wrist Cubital tunnel syndrome, bilateral CO2 narcosis Pressure ulcers of skin of multiple topographic sites Venous (peripheral) insufficiency Diverticulosis Colon polyps Esophageal candidiasis BPH loc w urin obs/LUTS Alcoholism Obesity Chronic pain Depression with anxiety DJD (degenerative joint disease) Aortic stenosis GERD (gastroesophageal reflux disease) CRI (chronic renal insufficiency) CHF (congestive heart failure) COPD (chronic obstructive pulmonary disease) HTN (hypertension) Sleep apnea LVH (left ventricular hypertrophy) DDD (degenerative disc disease) CKD (chronic kidney disease) Surgical History History of ear surgery bilat History of carpal tunnel release of both wrists Previous back surgery x 4 History of right knee joint replacement History of nasal surgery Hx of tonsillectomy History of aortic aneurysm repair History of coronary angioplasty with insertion of stent Family History Mother , in early 70's Heart attack Father No problems noted. Other CAD (coronary artery disease) Social History Smoking and tobacco/nicotine status: current every day tobacco/nicotine user cigarettes Packs smoked per day: 2 Years cigarettes smoked: 50 [ Other cigarette details: Started at age 12] Alcohol intake: current Alcohol intake frequency: few times a month Alcohol type: beer Substance/Drug Use: never Household members: significant other Marital status: Marital status details: No longer with his in last 5 years, who takes care of his financials Current occupational status: disabled Physical Exam Const: COMMON NORMALS: no acute distress, patient oriented x3 and healthy appearing HENMT: COMMON NORMALS: normocephalic and atraumatic HEAD & SCALP: normocephalic and atraumatic Eye: COMMON NORMALS: conjunctivae normal CONJUNCTIVA: Yes conjunctivae normal Neck/C-Spine: COMMON NORMALS: full ROM and supple Chest: COMMONS NORMALS: normal inspection of the chest Resp: COMMON NORMALS: normal respiratory effort Cardio: COMMON NORMALS: regular rate, regular rhythm and No murmurs present (Cardio) RATE: regular rate RHYTHM: regular rhythm Extremity: NARRATIVE EXTREMITY EXAM: Tenderness to right knee no warmth to touch some slight swelling distal pulses sensation intact Neuro: COMMON NORMALS: patient oriented x3, moves all extremities and no focal motor deficits Psych: COMMON NORMALS: mental status grossly normal, Normal thought process present and cooperative THOUGHT PROCESS: Normal thought process present Skin: COMMON NORMALS: no rashes or lesions noted and no wounds GENERAL SKIN EXAM: no rashes or lesions noted Procedures Joint Aspiration/Injection Joint Asp./Inject. 1: Time Out Performed: Yes Side of body: right Joint Aspirated: knee Ultrasound Guidance: No Skin Prep: Povidone-Iodine1% Local Anesthetic: lidocaine 1% Amount of anesthesia used (mL): 8 Needle Size Used: 18G Fluid Obtained: clear Total fluid obtained (mL): 40 Patient Tolerated Procedure: well Complications: none Course Vital Signs: Vital signs: Vital Signs Temperature 98.1 F 07/28/24 08:50 Pulse Rate 86 07/28/24 12:17 Respiratory Rate 18 07/28/24 08:50 Blood Pressure 104/71 07/28/24 12:17 Pulse Oximetry 92 07/28/24 12:17 Oxygen Delivery Me thod Nasal Cannula 07/28/24 12:17 Oxygen Flow Rate 2 07/28/24 12:17 MDM - Extremity (Nontraumatic) Medical Decision Making Patient presents with right knee pain likely arthritic in nature versus gout having some ankle pain as well is afebrile arthrocentesis showed no organisms no signs of septic joint he is stable for discharge we will follow the cultures. Medical Records I reviewed the patient's medical records. Lab Data I reviewed the patient's lab results. 07/28/24 09:07 Radiology Impressions Knee X-Ray 07/28/24 08:58 IMPRESSION: 1. Status post right knee arthroplasty without complication. 2. Large joint effusion. Laboratory Results WBC 10.65 10^3/uL (3.29-11.43) 07/28/24 09:07 RBC 4.98 10^6/uL (3.85-5.65) 07/28/24 09:07 Hgb 13.80 g/dL (11.27-16.99) 07/28/24 09:07 Hct 45.4 % (37-53) 07/28/24 09:07 MCV 91.2 fl (82-101) 07/28/24 09:07 MCH 27.7 pg (27-33) 07/28/24 09:07 MCHC 30.4 g/dL (30-55) 07/28/24 09:07 RDW 17.6 % (12.1-15.1) H 07/28/24 09:07 Plt Count 198 10^3/cmm (157-399) 07/28/24 09:07 MPV 8.6 fL (7.4-10.4) 07/28/24 09:07 Neut % (Auto) 64.9 % 07/28/24 09:07 Lymph % (Auto) 20.6 % 07/28/24 09:07 [place] % (Auto) 11.5 % 07/28/24 09:07 Eos % (Auto) 1.0 % 07/28/24 09:07 Baso % (Auto) 0.4 % 07/28/24 09:07 Neut # (Auto) 6.92 10^3/uL (1.8-7.7) 07/28/24 09:07 Lymph # (Auto) 2.2 10^3/uL (0.8-4.8) 07/28/24 09:07 [place] # (Auto) 1.2 10^3/uL (0.2-0.9) H 07/28/24 09:07 Eos # (Auto) 0.1 10^3/uL (0.0-0.8) 07/28/24 09:07 Baso # (Auto) 0.0 10^3/uL (0.0-0.1) 07/28/24 09:07 Nucleated RBC % (auto) 0 % 07/28/24 09:07 Nucleated RBCs # 0.0 /100WBC 07/28/24 09:07 ESR 31 mm/hr (0-10) H 07/28/24 09:07 C-Reactive Protein 195.5 mg/L (0.0-4.9) H 07/28/24 09:07 Fluid Crystals Sent to path 07/28/24 09:55 Synovial Color Nilda (PALE YELLOW) 07/28/24 09:55 Synovial Appearance Turbid (CLEAR) 07/28/24 09:55 Synovial WBC 81394 /uL (0-150) H 07/28/24 09:55 Synovial RBC 9 10^3/uL (0-0) H 07/28/24 09:55 Synovial Mononuclear 1.682 10^3/uL 07/28/24 09:55 Synov Polynuclear WBCs 12.992 10^3/uL 07/28/24 09:55 Synovial Other Cells Not Reportable 07/28/24 09:55 Synovial Polynuclear % 88.600 % 07/28/24 09:55 Synovial Mononuclear % 11.400 % 07/28/24 09:55 Path Cons w/Slide Yes 07/28/24 09:55 All radiology interpretation(s) finalized by discharge Discharge Plan Discharge Patient Disposition: Home Clinical Impression: Knee pain, right Condition: Stable Prescriptions: No Action lovastatin 40 mg tablet 40 mg PO DAILY buspirone 10 mg tablet 10 mg PO TID finasteride 5 mg tablet 5 mg PO QDAY Qty: 90 3RF (DME) Special Education Director Brace See Rx Instructions .Route .MEDSUPPLY Qty: 1 0RF Rx Instructions: As directed mirtazapine 15 mg tablet 15 mg PO BEDTIME (DME) LEFT KNEE MEDIAL CHILD THERAPIST BRACE See Rx Instructions .Route .MEDSUPPLY Qty: 1 0RF Rx Instructions: As directed potassium chloride 10 mEq tablet extended release 10 meq PO DAILY Qty: 90 3RF Stiolto Respimat 2.5-2.5 mcg/actuation mist 2 puff inhalation DAILY Qty: 4 6RF ergocalciferol (vitamin D2) 1,250 mcg (50,000 unit) Capsule 1,250 mcg PO Q7D Rx Instructions: (on Sundays) fluoxetine 20 mg Capsule 60 mg PO DAILY testosterone cypionate 200 mg/mL oil 200 mg IM .EVERY 21 DAYS naloxone [Narcan] 4 mg/actuation spray,non-aerosol 4 mg intranasal Q2M PRN (Reason: opioid overdose) Qty: 2 0RF Rx Instructions: spray 1 dose into ONE nostril; alternate nostrils w each dose until help arrives gabapentin 600 mg tablet 300 mg PO QID 30 Days Qty: 60 0RF alfuzosin 10 mg tablet extended release 24 hr 10 mg PO DAILY tamsulosin 0.4 mg capsule 0.4 mg PO BID prednisone 10 mg tablet See Taper PO DIRECTED Qty: 42 0RF Taper: predniSONE 60-10 60 mg Daily for 2 Days and 0 Hour 50 mg Daily for 2 Days and 0 Hour 40 mg Daily for 2 Days and 0 Hour 30 mg Daily for 2 Days and 0 Hour 20 mg Daily for 2 Days and 0 Hour 10 mg Daily for 2 Days and 0 Hour Rx Instructions: see taper instructions bumetanide 1 mg tablet 1 mg PO BID Qty: 60 0RF carvedilol 25 mg tablet 12.5 mg PO BID Qty: 30 0RF hydralazine 25 mg tablet 25 mg PO TID 30 Days Qty: 90 0RF dapagliflozin propanediol [Farxiga] 10 mg tablet 10 mg PO DAILY Qty: 30 0RF budesonide [Pulmicort] 0.5 mg/2 mL suspension for nebulization 0.5 mg inhalation BID Qty: 60 0RF ipratropium-albuterol 0.5 mg-3 mg(2.5 mg base)/3 mL solution for nebulization 3 ml inhalation Q8H Qty: 180 0RF Ozempic 0.25 mg or 0.5 mg (2 mg/3 mL) pen injector 0.25 mg SUBCUT Q7D oxycodone-acetaminophen [Percocet] 10-325 mg tablet 1 tab PO Q4H PRN (Reason: Pain) 7 Days Qty: 42 0RF Discharge Orders: Discharge ED (Routine); Ordered 07/28/24 Ordered By: Barrett Griffiths Referrals: Barbara Longo DO [Primary Care Provider, [facility]] - 4-7 days Discharge Diet: Advance as tolerated Discharge Activity: Resume usual activity Patient Instructions: Knee Pain (ED) Print Language: Cypriot Coding Level of Care Code ED Alining Inspector for Rom Gupta
[2024-07-28] MEDS: ketorolac 30 mg/mL INJ 15 MG IVP (09:07)
[2024-07-28] MEDS: morphine 4 mg/mL SDV 1 mL IVP (09:07)
[2024-07-28 09:09] VITALS: BP 113/98; PULSE 93; O2SAT 92
[2024-07-28 09:12] LABS: Basophils % 0.4 %; Eosinophils # 0.1 10^3/uL (0.0-0.8); Hematocrit 45.4 % (37-53); Lymphocytes # 2.2 10^3/uL (0.8-4.8); Lymphocytes % 20.6 %; Mean Corpuscular HGB Conc 30.4 g/dL (30-55); Mean Corpuscular Hemoglobin 27.7 pg (27-33); Mean Corpuscular Volume 91.2 fl (82-101); Mean Platelet Volume 8.6 fL (7.4-10.4); Monocytes # 1.2 10^3/uL (0.2-0.9); Monocytes % 11.5 %; Neutrophils # 6.92 10^3/uL (1.8-7.7); Neutrophils % 64.9 %; Nucleated Red Blood Cells % 0 %; Platelet Count 198 10^3/cmm (157-399); Red Blood Count 4.98 10^6/uL (3.85-5.65); Red Cell Distribution Width 17.6 % (12.1-15.1); White Blood Count 10.65 10^3/uL (3.29-11.43)
[2024-07-28 09:20] LABS: Erythrocyte Sedimentation Rate 31 mm/hr (0-10)
[2024-07-28 09:35] LABS: C Reactive Protein 195.5 mg/L (0.0-4.9)
[2024-07-28 10:09] LABS: Cyto Order Verification No Order
[2024-07-28 10:14] LABS: PATH Referal YES
[2024-07-28 10:25] LABS: RBC Synovial Fluid 9 10^3/uL (0-0)
[2024-07-28 10:33] LABS: Appearance Synovial Fluid TURBID (CLEAR); Synovial Fluid Mononuclear # 1.682 10^3/uL; Synovial Fluid Polynuclear # 12.992 10^3/uL; WBC Synovial Fluid 14674 /uL (0-150)
[2024-07-28 10:34] LABS: Color Synovial Fluid AMBER (PALE YELLOW)
[2024-07-28 10:35] LABS: Crystals, Fluid SENT TO PATH
[2024-07-28 12:17] VITALS: BP 104/71; PULSE 86; O2SAT 92
[2024-07-28 14:05] VITALS: BP 104/71; PULSE 86; O2SAT 93
== END 2024-07-28 14:11 | disposition home or self-care (01) ==
PROVIDERS: Emergency Provider Emergency Medicine; PCP Family Medicine
DX: M25.561 Pain in right knee (principal); F17.210 Nicotine dependence, cigarettes, uncomplicated; J44.9 Chronic obstructive pulmonary disease, unspecified; I13.0 Hypertensive heart and chronic kidney disease with heart failure and stage 1 through stage 4 chronic kidney disease, or unspecified chronic kidney disease; N18.9 Chronic kidney disease, unspecified; I50.9 Heart failure, unspecified
CPT/HCPCS: 20610; 36415; 73562; 80503; 85025; 85651; 86140; 87070; 87075; 87205; 89050; 96374; 96375; 99284; J1885; J2270

== ENCOUNTER → 2024-08-27 13:25 | Outpatient (BNVA) | payer MEDICARE, SELFPAY | PROVIDERS: PCP Family Medicine; Visit Provider Student in an Organized Health Care Education/Training Program | DX: M25.562 Pain in left knee (principal); M25.561 Pain in right knee; M17.11 Unilateral primary osteoarthritis, right knee | CPT/HCPCS: 73560; 73565 ==

== ENCOUNTER 2024-08-27 15:32 | Outpatient (CLI) | payer MEDICARE, SELFPAY | END 2024-08-27 15:33 | disposition home or self-care (01) | LOC: SPT 15:33 | PROVIDERS: PCP Family Medicine; Visit Provider Student in an Organized Health Care Education/Training Program | DX: Z46.89 Encounter for fitting and adjustment of other specified devices (principal); M25.561 Pain in right knee | CPT/HCPCS: L1812 ==

== ENCOUNTER 2024-09-04 08:28 | Outpatient (CLI) | payer MEDICARE, OTHER, SELFPAY ==
--- NOTE | 2024-09-04 08:45 | NM_ITS ---
WS: [id number] THREE-PHASE BONE SCAN HISTORY: right knee concern COMPARISON: 07/08/2021 Patient is is injected with 24.9 mCi Tc99m HDP intravenously. Immediate angiographic phase imaging is performed over the area of concern. Static blood pool imaging also performed. Two-hour whole-body scintigrams performed in anterior and posterior projections. Additional large field of view imaging sub mitted as necessary. Bone scan centered over the knees. Status post RIGHT total knee arthroplasty. Very minimal increased uptake on the arterial and blood pool phase imaging over the RIGHT lateral femoral prosthesis. On the 2-hour delayed imaging there is increased uptake surrounding the femoral condyles which has actually progressed since the prior study of 07/08/2021. Increased uptake is predominantly involving the medial and lateral femoral condyles and the patella. More focal increased uptake involving the medial LEFT tibial plateau which is similar to the prior study. Arthritic changes bilaterally involving the mid tarsal, bilateral, and RIGHT ankle. Focal increased uptake within the LEFT first metatarsal head. Normal soft tissue uptake. Renal uptake is identified. NM/NM bone 3 phase 32842 IMPRESSION: 1. Status post RIGHT knee arthroplasty. 2. Progressive increased uptake on 2-hour delayed imaging involving the RIGHT knee and periprosthetic soft tissues. Mild increased uptake on the arterial and blood pool imaging. This may represent early changes of inflammatory arthritis or loosening. These findings can also be seen with complex regional pain syndr ome and infection. Please note there has been a progression in the extent of up take since the bone scan of 07/08/2021 surrounding the RIGHT knee. 3. Stable arthritic changes involving the medial LEFT tibial plateau.
== END 2024-09-04 08:29 | disposition home or self-care (01) ==
LOC: RAD 08:30
PROVIDERS: PCP Family Medicine; Visit Provider Student in an Organized Health Care Education/Training Program
DX: M25.561 Pain in right knee (principal); Z96.651 Presence of right artificial knee joint
CPT/HCPCS: 78315; A9561

== ENCOUNTER → 2024-12-25 12:45 | Outpatient (BNVA) | payer MEDICARE, OTHER, SELFPAY | PROVIDERS: PCP Family Medicine; Visit Provider Student in an Organized Health Care Education/Training Program | DX: M25.561 Pain in right knee (principal) | CPT/HCPCS: 36415; 85025; 85651; 86140 ==